=== PATIENT | male | born 1945 | race Caucasian/White ===

== ENCOUNTER 2020-02-09 10:10 | Outpatient (CLI) | payer MEDICARE, SELFPAY ==
[2020-02-09 11:03] LABS: Hematocrit 46.2 % (42.0-52.0); Hemoglobin 15.1 g/dL (14.0-18.0); Mean Corpuscular HGB Conc 32.7 g/dl (32-36); Mean Corpuscular Volume 91.8 fl (80-100); Mean Platelet Volume 11.4 fl (7.4-10.4); Platelet Count Result 237 k/mm3 (150-375); Red Blood Count 5.03 M/mm3 (4.6-6.20); Red Cell Distribution Width 13.6 % (11.5-14.5); White Blood Count 10.6 K/mm3 (4.5-10.0)
[2020-02-09 11:11] LABS: Cholesterol 165 mg/dL (0-200); HDL Direct 36 mg/dL; Triglycerides 120 mg/dL (<150)
[2020-02-09 11:12] LABS: Alanine Aminotransferase 16 U/L (4-50); Albumin Level 4.3 g/dL (3.5-5.1); Alkaline Phosphatase 67 U/L (38-126); Aspartate Amino Transferase 22 U/L (17-59); Bilirubin,Total 0.6 mg/dL (0.2-1.3); Blood Urea Nitrogen 24 mg/dL (9-20); Calcium 9.2 mg/dL (8.4-10.2); Carbon Dioxide 26 mmol/L (22-30); Chloride 104 mmol/L (98-107); Estimated Glomerular Filt Rate > 60; Glucose 95 mg/dL (75-110); Potassium 4.2 mmol/L (3.4-5.0); Sodium 137 mmol/L (137-145)
[2020-02-09 11:23] LABS: LDL Cholesterol Direct 108 mg/dL
[2020-02-09 11:39] LABS: Vitamin D 25 Hydroxy 51.6 ng/mL
[2020-02-09 11:43] LABS: Prostate Specific Antigen 4.6 ng/mL (< OR = 4.0)
== END 2020-02-09 10:11 | disposition home or self-care (01) ==
PROVIDERS: PCP Internal Medicine
DX: Z13.6 Encounter for screening for cardiovascular disorders (principal); Z12.5 Encounter for screening for malignant neoplasm of prostate; E55.9 Vitamin D deficiency, unspecified; L40.0 Psoriasis vulgaris
CPT/HCPCS: 36415; 80053; 80061; 82306; 84153; 85027; G0103

== ENCOUNTER 2020-06-14 09:34 | Outpatient (CLI) | payer MEDICARE, SELFPAY ==
[2020-06-14 10:17] LABS: Basophils Absolute Auto 0.1 K/mm3 (0.0-0.1); Basophils Percent Auto 0.6 % (0.2-1.2); Eosinophils Absolute Auto 0.8 K/mm3 (0-0.3); Eosinophils Percent Auto 8.7 % (0-4.4); Hematocrit 44.7 % (42.0-52.0); Hemoglobin 14.9 g/dL (14.0-18.0); Immature Granulocyte Absolute 0.02 K/mm3 (0.00-0.031); Immature Granulocyte Percent A 0.2 % (0-0.5); Lymphocytes Absolute Auto 2.51 K/mm3 (0.9-3.2); Lymphocytes Percent Auto 25.8 % (18.3-44.2); Mean Corpuscular HGB Conc 33.3 g/dl (32-36); Mean Corpuscular Hemoglobin 30.5 pg (26-34); Mean Corpuscular Volume 91.4 fl (80-100); Mean Platelet Volume 11.6 fl (7.4-10.4); Monocytes Absolute Auto 0.8 K/mm3 (0.1-0.6); Monocytes Percent Auto 7.8 % (2.6-8.5); Neutrophils Absolute Auto 5.5 K/mm3 (1.3-6.7); Neutrophils Percent Auto 56.9 % (45.5-73.1); Platelet Count Result 219 k/mm3 (150-375); Red Blood Count 4.89 M/mm3 (4.6-6.20); Red Cell Distribution Width 13.7 % (11.5-14.5); White Blood Count 9.7 K/mm3 (4.5-10.0)
[2020-06-14 10:42] LABS: Alanine Aminotransferase 14 U/L (4-50); Albumin Level 4.3 g/dL (3.5-5.1); Alkaline Phosphatase 69 U/L (38-126); Aspartate Amino Transferase 18 U/L (17-59); Bilirubin,Total 0.3 mg/dL (0.2-1.3); Blood Urea Nitrogen 26 mg/dL (9-20); Calcium 8.9 mg/dL (8.4-10.2); Carbon Dioxide 25 mmol/L (22-30); Chloride 106 mmol/L (98-107); Cholesterol 178 mg/dL (0-200); Estimated Glomerular Filt Rate 59; Glucose 103 mg/dL (75-110); HDL Direct 37 mg/dL; Potassium 4.5 mmol/L (3.4-5.0); Sodium 139 mmol/L (137-145); Triglycerides 80 mg/dL (<150)
[2020-06-14 10:53] LABS: LDL Cholesterol Direct 120 mg/dL
[2020-06-14 11:12] LABS: Prostate Specific Antigen 3.9 ng/mL (< OR = 4.0)
[2020-06-14 11:41] LABS: Vitamin D 25 Hydroxy 47.3 ng/mL
== END 2020-06-14 09:35 | disposition home or self-care (01) ==
LOC: ANHLAB 09:35
PROVIDERS: PCP Internal Medicine; Visit Provider Nurse Practitioner
DX: E78.00 Pure hypercholesterolemia, unspecified (principal); E55.9 Vitamin D deficiency, unspecified; D64.9 Anemia, unspecified; N40.1 Benign prostatic hyperplasia with lower urinary tract symptoms
CPT/HCPCS: 36415; 80053; 80061; 82306; 84153; 85025

== ENCOUNTER 2020-12-12 08:09 | Outpatient (CLI) | payer MEDICARE, SELFPAY ==
[2020-12-12 08:34] LABS: Basophils Absolute Auto 0.1 K/mm3 (0.0-0.1); Basophils Percent Auto 0.9 % (0.2-1.2); Eosinophils Absolute Auto 0.5 K/mm3 (0-0.3); Eosinophils Percent Auto 5.4 % (0-4.4); Hematocrit 45.2 % (42.0-52.0); Hemoglobin 15.1 g/dL (14.0-18.0); Immature Granulocyte Absolute 0.02 K/mm3 (0.00-0.031); Immature Granulocyte Percent A 0.2 % (0-0.5); Lymphocytes Absolute Auto 3.31 K/mm3 (0.9-3.2); Lymphocytes Percent Auto 36.3 % (18.3-44.2); Mean Corpuscular HGB Conc 33.4 g/dl (32-36); Mean Corpuscular Hemoglobin 30.6 pg (26-34); Mean Corpuscular Volume 91.7 fl (80-100); Mean Platelet Volume 10.3 fl (7.4-10.4); Monocytes Absolute Auto 1.1 K/mm3 (0.1-0.6); Monocytes Percent Auto 11.5 % (2.6-8.5); Neutrophils Absolute Auto 4.2 K/mm3 (1.3-6.7); Neutrophils Percent Auto 45.7 % (45.5-73.1); Platelet Count Result 207 k/mm3 (150-375); Red Blood Count 4.93 M/mm3 (4.6-6.20); Red Cell Distribution Width 13.2 % (11.5-14.5); White Blood Count 9.1 K/mm3 (4.5-10.0)
[2020-12-12 08:47] LABS: Alanine Aminotransferase 22 U/L (4-50); Albumin Level 4.1 g/dL (3.5-5.1); Alkaline Phosphatase 73 U/L (38-126); Anion Gap 4 mmol/L (8-16); Aspartate Amino Transferase 27 U/L (17-59); Bilirubin,Total 0.5 mg/dL (0.2-1.3); Blood Urea Nitrogen 19 mg/dL (9-20); Calcium 8.8 mg/dL (8.4-10.2); Carbon Dioxide 31 mmol/L (22-30); Chloride 101 mmol/L (98-107); Cholesterol 177 mg/dL (0-200); Estimated Glomerular Filt Rate > 60; Glucose 103 mg/dL (75-110); HDL Direct 36 mg/dL; Potassium 4.7 mmol/L (3.4-5.0); Sodium 136 mmol/L (137-145); Triglycerides 121 mg/dL (<150)
[2020-12-12 09:29] LABS: Vitamin D 25 Hydroxy 37.4 ng/mL
[2020-12-12 12:26] LABS: LDL Cholesterol Direct 114 mg/dL
[2020-12-15 11:43] LABS: NIL 1.14 IU/mL; Quantiferon TB Plus, 1T NEGATIVE (NEGATIVE); TB2-NIL 0.04 IU/mL
== END 2020-12-12 08:10 | disposition home or self-care (01) ==
PROVIDERS: PCP Internal Medicine; Referring Provider Dermatology; Visit Provider Nurse Practitioner
DX: E55.9 Vitamin D deficiency, unspecified (principal); D64.9 Anemia, unspecified; E78.00 Pure hypercholesterolemia, unspecified
CPT/HCPCS: 36415; 80053; 80061; 82306; 85025; 86480

== ENCOUNTER 2020-12-30 10:01 | Outpatient (CLI) | payer MEDICARE, SELFPAY ==
--- NOTE | ~2020-12-30 | XR_ITS ---
EXAMINATION: XR chest 2V DATE: 12/30/2020 10:12 INDICATION: Abnormal weight loss. Wheezing. TECHNIQUE: Frontal and lateral views of the chest were obtained. COMPARISON: Chest 2 views 04/24/2019 FINDINGS: There is mild atelectasis versus scarring at the lung bases. No pleural effusion or pneumot horax. The heart size is normal. IMPRESSION: 1. Mild atelectasis versus scarring at the lung bases. Reviewed, dictated and finalized at location A. ING MANAGER
== END 2020-12-30 10:02 | disposition home or self-care (01) ==
LOC: ANHIMG 10:02
PROVIDERS: PCP Internal Medicine; Visit Provider Internal Medicine
DX: R63.4 Abnormal weight loss (principal); R91.8 Other nonspecific abnormal finding of lung field
CPT/HCPCS: 71046

== ENCOUNTER 2021-10-05 08:30 | Outpatient (CLI) | payer MEDICARE, SELFPAY ==
[2021-10-05 10:08] LABS: Basophils Absolute Auto 0.1 K/mm3 (0.0-0.1); Basophils Percent Auto 1.1 % (0.2-1.2); Eosinophils Percent Auto 9.4 % (0-4.4); Hematocrit 44.6 % (42.0-52.0); Hemoglobin 14.8 g/dL (14.0-18.0); Immature Granulocyte Absolute 0.04 K/mm3 (0.00-0.031); Immature Granulocyte Percent A 0.4 % (0-0.5); Lymphocytes Absolute Auto 3.33 K/mm3 (0.9-3.2); Lymphocytes Percent Auto 31.4 % (18.3-44.2); Mean Corpuscular HGB Conc 33.2 g/dl (32-36); Mean Corpuscular Hemoglobin 30.4 pg (26-34); Mean Corpuscular Volume 91.6 fl (80-100); Mean Platelet Volume 11.1 fl (7.4-10.4); Monocytes Absolute Auto 0.9 K/mm3 (0.1-0.6); Monocytes Percent Auto 8.4 % (2.6-8.5); Neutrophils Absolute Auto 5.2 K/mm3 (1.3-6.7); Neutrophils Percent Auto 49.3 % (45.5-73.1); Platelet Count Result 218 k/mm3 (150-375); Red Blood Count 4.87 M/mm3 (4.6-6.20); Red Cell Distribution Width 14.3 % (11.5-14.5); White Blood Count 10.6 K/mm3 (4.5-10.0)
[2021-10-05 10:37] LABS: Alanine Aminotransferase 16 U/L (4-50); Albumin Level 4.4 g/dL (3.5-5.1); Alkaline Phosphatase 62 U/L (38-126); Anion Gap 10 mmol/L (8-16); Aspartate Amino Transferase 22 U/L (17-59); Bilirubin,Total 0.7 mg/dL (0.2-1.3); Blood Urea Nitrogen 24 mg/dL (9-20); Calcium 9.1 mg/dL (8.4-10.2); Carbon Dioxide 27 mmol/L (22-30); Chloride 104 mmol/L (98-107); Cholesterol 185 mg/dL (0-200); Estimated Glomerular Filt Rate > 60; Glucose 97 mg/dL (65-110); HDL Direct 46 mg/dL; Potassium 4.4 mmol/L (3.4-5.0); Sodium 141 mmol/L (137-145); Triglycerides 77 mg/dL (<150)
[2021-10-05 10:38] LABS: Vitamin D 25 Hydroxy 40.3 ng/mL
[2021-10-05 10:48] LABS: LDL Cholesterol Direct 115 mg/dL
[2021-10-05 11:07] LABS: Prostate Specific Antigen 4.1 ng/mL (< OR = 4.0)
[2021-10-10 01:50] LABS: NIL 0.04 IU/mL; Quantiferon TB Plus, 1T NEGATIVE (NEGATIVE); TB1-NIL <0.00 IU/mL
== END 2021-10-05 08:31 | disposition home or self-care (01) ==
LOC: ANHLAB 08:34
PROVIDERS: PCP Internal Medicine; Visit Provider Nurse Practitioner
DX: D64.9 Anemia, unspecified (principal); E55.9 Vitamin D deficiency, unspecified; E78.00 Pure hypercholesterolemia, unspecified; N40.1 Benign prostatic hyperplasia with lower urinary tract symptoms
CPT/HCPCS: 36415; 80053; 80061; 82306; 84153; 85025; 86480

== ENCOUNTER 2022-05-03 07:49 | Outpatient (CLI) | payer MEDICARE, SELFPAY ==
[2022-05-03 08:19] LABS: Basophils Absolute Auto 0.1 K/mm3 (0.0-0.1); Basophils Percent Auto 0.8 % (0.2-1.2); Eosinophils Absolute Auto 0.9 K/mm3 (0-0.3); Eosinophils Percent Auto 8.7 % (0-4.4); Hematocrit 46.2 % (42.0-52.0); Hemoglobin 15.2 g/dL (14.0-18.0); Immature Granulocyte Absolute 0.03 K/mm3 (0.00-0.031); Immature Granulocyte Percent A 0.3 % (0-0.5); Lymphocytes Absolute Auto 3.33 K/mm3 (0.9-3.2); Lymphocytes Percent Auto 32.8 % (18.3-44.2); Mean Corpuscular HGB Conc 32.9 g/dl (32-36); Mean Corpuscular Hemoglobin 30.4 pg (26-34); Mean Corpuscular Volume 92.4 fl (80-100); Mean Platelet Volume 10.7 fl (7.4-10.4); Monocytes Absolute Auto 0.9 K/mm3 (0.1-0.6); Monocytes Percent Auto 8.6 % (2.6-8.5); Neutrophils Percent Auto 48.8 % (45.5-73.1); Platelet Count Result 210 k/mm3 (150-375); Red Cell Distribution Width 14.1 % (11.5-14.5); White Blood Count 10.2 K/mm3 (4.5-10.0)
[2022-05-03 08:34] LABS: Alanine Aminotransferase 13 U/L (6-50); Albumin Level 4.2 g/dL (3.5-5.1); Alkaline Phosphatase 72 U/L (38-126); Anion Gap 5 mmol/L (8-16); Aspartate Amino Transferase 23 U/L (17-59); Bilirubin,Total 0.5 mg/dL (0.2-1.3); Blood Urea Nitrogen 19 mg/dL (9-20); Calcium 8.9 mg/dL (8.4-10.2); Carbon Dioxide 32 mmol/L (22-30); Chloride 103 mmol/L (98-107); Cholesterol 199 mg/dL (0-200); Estimated Glomerular Filt Rate > 60; Glucose 96 mg/dL (65-110); HDL Direct 41 mg/dL; Potassium 4.4 mmol/L (3.4-5.0); Sodium 140 mmol/L (137-145); Triglycerides 92 mg/dL (<150)
[2022-05-03 08:44] LABS: LDL Cholesterol Direct 116 mg/dL
[2022-05-03 09:13] LABS: Vitamin D 25 Hydroxy 43.2 ng/mL
[2022-05-03 15:15] LABS: Prostate Specific Antigen 3.6 ng/mL (< OR = 4.0)
== END 2022-05-03 07:50 | disposition home or self-care (01) ==
LOC: ANHLAB 07:49
PROVIDERS: Nurse Practitioner; PCP Internal Medicine; Visit Provider Internal Medicine
DX: R97.20 Elevated prostate specific antigen [PSA] (principal); I10 Essential (primary) hypertension; E78.00 Pure hypercholesterolemia, unspecified; D64.9 Anemia, unspecified; E55.9 Vitamin D deficiency, unspecified; E78.5 Hyperlipidemia, unspecified; Z51.81 Encounter for therapeutic drug level monitoring; Z79.899 Other long term (current) drug therapy
CPT/HCPCS: 36415; 80053; 80061; 82306; 84153; 85025

== ENCOUNTER 2022-05-08 08:49 | Outpatient (CLI) | payer MEDICARE, SELFPAY ==
--- NOTE | ~2022-05-08 | CT_ITS ---
EXAMINATION: CT lung screening DATE: 05/08/2022 09:09 INDICATION: Personal history of tobacco dependence. TECHNIQUE: Computed tomography (CT) of the chest was performed without intravenous contrast. The dose -length product was 120.29 mGy-cm. Automated exposure control and iterative reconstruction technique were employed. COMPARISON: Chest x-ray dated 12/30/2020 FINDINGS: There is atherosclerosis of the aorta and coronary arteries. No aneurysm. Heart size normal . No significant pleural or pericardial effusion. No thoracic lymphadenopathy. The upper abdomen is u nremarkable. There is chronic bibasilar atelectasis/scarring. There is a 3 mm right upper lobe nodule adjacent to the pleural surface, image 37. There is a 3 mm left upper lobe nodule, image 28. There i s an 8 mm left upper lobe nodule, image 47. There are a few additional smaller 2-3 millimeter nodules . No pneumothorax. No endobronchial lesions. IMPRESSION: 1. Lung Rads 4A, suspicious: Recommended 3 month follow-up low dose chest CT or PET/CT. Reviewed, dictated and finalized at location B.
== END 2022-05-08 08:50 | disposition home or self-care (01) ==
PROVIDERS: PCP Internal Medicine; Visit Provider Nurse Practitioner
DX: Z12.2 Encounter for screening for malignant neoplasm of respiratory organs (principal); Z87.891 Personal history of nicotine dependence; R91.8 Other nonspecific abnormal finding of lung field
CPT/HCPCS: 71271

== ENCOUNTER 2022-10-22 08:01 | Outpatient (CLI) | payer MEDICARE, SELFPAY ==
[2022-10-22 08:27] LABS: Hematocrit 43.5 % (42.0-52.0); Hemoglobin 14.6 g/dL (14.0-18.0); Mean Corpuscular HGB Conc 33.6 g/dl (32-36); Mean Corpuscular Hemoglobin 30.1 pg (26-34); Mean Corpuscular Volume 89.7 fl (80-100); Mean Platelet Volume 10.1 fl (7.4-10.4); Platelet Count Result 228 k/mm3 (150-375); Red Blood Count 4.85 M/mm3 (4.6-6.20); Red Cell Distribution Width 13.7 % (11.5-14.5); White Blood Count 11.8 K/mm3 (4.5-10.0)
[2022-10-22 11:07] LABS: Alanine Aminotransferase 18 U/L (6-50); Albumin Level 4.2 g/dL (3.5-5.1); Alkaline Phosphatase 73 U/L (38-126); Anion Gap 9 mmol/L (8-16); Aspartate Amino Transferase 23 U/L (17-59); Bilirubin,Total 0.5 mg/dL (0.2-1.3); Blood Urea Nitrogen 26 mg/dL (9-20); Carbon Dioxide 24 mmol/L (22-30); Chloride 103 mmol/L (98-107); Estimated Glomerular Filt Rate > 60; Glucose 106 mg/dL (65-110); Potassium 4.3 mmol/L (3.4-5.0); Sodium 136 mmol/L (137-145)
== END 2022-10-22 08:02 | disposition home or self-care (01) ==
PROVIDERS: PCP Internal Medicine; Visit Provider Dermatology
DX: L40.0 Psoriasis vulgaris (principal)
CPT/HCPCS: 36415; 80053; 85027

== ENCOUNTER 2023-05-30 08:48 | Outpatient (CLI) | payer MEDICARE, SELFPAY ==
[2023-05-30 09:57] LABS: Hematocrit 39.8 % (42.0-52.0); Hemoglobin 12.6 g/dL (14.0-18.0); Mean Corpuscular HGB Conc 31.7 g/dl (32-36); Mean Corpuscular Hemoglobin 27.7 pg (26-34); Mean Corpuscular Volume 87.5 fl (80-100); Mean Platelet Volume 10.4 fl (7.4-10.4); Platelet Count Result 265 k/mm3 (150-375); Red Blood Count 4.55 M/mm3 (4.6-6.20); Red Cell Distribution Width 13.9 % (11.5-14.5); White Blood Count 9.1 K/mm3 (4.5-10.0)
[2023-05-30 10:07] LABS: Hemoglobin A1C 5.8 % (<5.7)
[2023-05-30 10:10] LABS: Alanine Aminotransferase 20 U/L (6-50); Albumin Level 4.4 g/dL (3.5-5.1); Alkaline Phosphatase 75 U/L (38-126); Anion Gap 6 mmol/L (8-16); Aspartate Amino Transferase 24 U/L (17-59); Bilirubin,Total 0.4 mg/dL (0.2-1.3); Blood Urea Nitrogen 19 mg/dL (9-20); Calcium 8.8 mg/dL (8.4-10.2); Carbon Dioxide 30 mmol/L (22-30); Chloride 103 mmol/L (98-107); Cholesterol 169 mg/dL (0-200); Estimated Glomerular Filt Rate 59; Glucose 97 mg/dL (65-110); HDL Direct 42 mg/dL; Potassium 4.7 mmol/L (3.4-5.0); Sodium 139 mmol/L (137-145); Triglycerides 72 mg/dL (<150)
[2023-05-30 10:22] LABS: LDL Cholesterol Direct 105 mg/dL
[2023-05-30 10:41] LABS: Prostate Specific Antigen 5.2 ng/mL (< OR = 4.0)
== END 2023-05-30 08:49 | disposition home or self-care (01) ==
PROVIDERS: PCP Family Medicine; Visit Provider Family Medicine
DX: D64.9 Anemia, unspecified (principal); E55.9 Vitamin D deficiency, unspecified; G47.33 Obstructive sleep apnea (adult) (pediatric); G89.29 Other chronic pain; I10 Essential (primary) hypertension; I11.9 Hypertensive heart disease without heart failure; I48.91 Unspecified atrial fibrillation; I67.1 Cerebral aneurysm, nonruptured; J44.9 Chronic obstructive pulmonary disease, unspecified; K42.9 Umbilical hernia without obstruction or gangrene; L40.0 Psoriasis vulgaris; M51.36 Other intervertebral disc degeneration, lumbar region; N40.1 Benign prostatic hyperplasia with lower urinary tract symptoms; R73.03 Prediabetes; R91.8 Other nonspecific abnormal finding of lung field; R97.20 Elevated prostate specific antigen [PSA]; Z87.891 Personal history of nicotine dependence; E78.5 Hyperlipidemia, unspecified; Z51.81 Encounter for therapeutic drug level monitoring; Z12.5 Encounter for screening for malignant neoplasm of prostate
CPT/HCPCS: 36415; 80053; 80061; 82306; 83036; 84153; 85027; G0103

== ENCOUNTER 2023-05-31 13:27 | Outpatient (CLI) | payer MEDICARE, SELFPAY ==
--- NOTE | ~2023-05-31 | CT_ITS ---
CT Scan of the Chest without Contrast: Clinical Indication: Other nonspecific abnormal finding of lung field, pulmonary nodules Technique: Contiguous sections were acquired throughout the chest without intravenous contrast. Dose reduction technique was used on this scan by utilizing automated exposure control and iterative recon struction technique. The dose-length product (DLP) was 176.33 mGy-cm. COMPARISON: 05/08/2022 Findings: There is no evidence of any significant mediastinal, hilar or axillary lymphadenopathy. Atherosclerot ic calcifications of the aorta and coronary arteries are present. There is no evidence of pleural or pericardial effusion. Subcentimeter right middle lobe pulmonary nodules are unchanged. 9 mm left upper lobe pulmonary nodul e (axial image 54) is unchanged. Images through the upper abdomen reveal no abnormalities. Impression: Pulmonary nodules, as detailed above, are unchanged. Largest nodule measures 9 mm at the left upper l obe. Reviewed, dictated and finalized at location . Impression: Pulmonary nodules, as detailed above, are unchanged. Largest nodule measures 9 mm at the left upper lobe.
== END 2023-05-31 13:28 | disposition home or self-care (01) ==
LOC: ANHIMG 13:28
PROVIDERS: PCP Family Medicine; Visit Provider Family Medicine
DX: R91.8 Other nonspecific abnormal finding of lung field (principal)
CPT/HCPCS: 71250

== ENCOUNTER 2023-06-25 00:55 | Day surgery (SDC) | payer MEDICARE, SELFPAY ==
[2023-06-17 13:35] VITALS: BMI 30.4
[2023-06-25 10:30] VITALS: BP 144/98; PULSE 120; RESP 20; TEMP 36.2; O2SAT 97; BMI 27.2
--- NOTE | 2023-06-25 10:47 | PM.HPGS ---
History of Present Illness History of Present Illness Consent: Risks, benefits, and alternatives have been discussed and questions answered. Patient agrees to proceed with procedure. Chief complaint: hemorrhage of anus and rectum Narrative: Dickson Soresnen is a 77 year old male Referred for colonoscopy. Patient reports that he experienced blood admixed with his stool. He was being treated with Eliquis because of atrial fibrillation. For this reason he discontinue the Eliquis. Three weeks ago. Over the last 3 weeks since stopping the Eliquis he has had no additional bleeding. Patient denies abdominal pain. He does report some discomfort from periumbilical hernia. Family history noncontributory. Recent laboratory testing reveals a slight decline in hemoglobin suggesting blood loss anemia. Patient referred today for colonoscopy. Review of Systems Review of Systems: Review of systems noncontributory. [facility] Past Medical History Medical History Atrial fibrillation Brain aneurysm COPD (chronic obstructive pulmonary disease) Enlarged prostate with lower urinary tract symptoms (LUTS) Essential (primary) hypertension Lung nodules Obstructive sleep apnea (adult) (pediatric) Other psoriatic arthropathy Polyosteoarthritis, unspecified Prediabetes Psoriasis vulgaris Umbilical hernia Vitamin D deficiency Surgical History Surgical History H/O arthroscopic knee surgery Family History Family History Father Family history of diabetes mellitus in first degree relative, Onset Age: 62 Patient's father is Diabetes mellitus Mother Family history of heart disease in male family member before age 55, Onset Age: 81 Patient's mother is Family history of cardiovascular disease Social History Social History Smoking packs per day: 1.5 Smoking cigarettes per day: 30.0 Years smoked: 40 Smoking pack-years: 60.00 Smoking status: Former smoker Tobacco type: cigarettes Second hand tobacco smoke exposure: No Smoking end date: 12/02/16 Alcohol intake: current Substance use: current Substance use type: marijuana Other substance usage details: COUPLE TIMES A WEEK Lack of Transportation: No Lack of Food: Never True Current Housing: I Have Housing Concerned About Future Housing: No Difficulty Paying Gas/Electric Bills: No Difficulty Paying for Meds: No Currently Unemployed: No Education: High School Diploma/GED Difficulty w/ Childcare or Family Care: No Living arrangements: with family Spiritual care concerns: No Meds Home Medications and Allergies Home Medications Medication Instructions Recorded Confirmed Type adalimumab 40 mg/0.8 mL See Rx Instructions subcut .COMPLEX 01/13/20 06/25/23 History subcutaneous syringe kit (Humira) albuterol sulfate 90 mcg/actuation 1 puff inhalation Q4H PRN 01/09/23 06/25/23 History aerosol inhaler Shortness Of Breath Or Wheezing multivitamin 1 tablet PO DAILY 01/09/23 06/25/23 History diltiazem HCl 120 mg 120 mg PO DAILY #90 caps 01/30/23 06/25/23 Rx capsule,extended release 24 hr, controlled budesonide-formoterol HFA 160 2 puff inhalation Q12H #10.2 grams 05/24/23 06/25/23 Rx mcg-4.5 mcg/actuation aerosol inhaler (Symbicort) hydrocodone 7.5 mg-acetaminophen 1 tablet PO Q6H PRN pain #110 tabs 06/10/23 06/25/23 Rx 325 mg tablet metoprolol tartrate 50 mg tablet 50 mg PO BID #90 tabs 06/10/23 06/25/23 Rx rivaroxaban 20 mg tablet (Xarelto) 20 mg PO QPM #30 tabs 06/19/23 06/25/23 Rx Allergies Allergy/AdvReac Type Severity Reaction Status Date / Time No Known Allergies Allergy Unknown Verified 06/25/23 10:35 Vital Signs Vital Signs - 24 hr 06/25/23 10:30 Temperatur
[2023-06-25] MEDS: LACTATED RINGERS 1,000 ML 150 ML IV CONT (10:52)
--- NOTE | 2023-06-25 11:19 | WPDANESEPPF ---
Anes - Initial Pre Proc Eval Procedure: Operation Date: 06/25/23 11:30 Proposed Procedures p Colonoscopy - Hammad Eden MD Date/Time: 06/25/23 11:19 Surgeon: Hammad Eden MD Pre Op Diagnosis: hemorrhage of anus and rectum Patient Data Age: 77 Gender: M Height: 1.73 m Weight: 81.2 kg Last Vital Signs Temp 97.2 F L 06/25/23 10:30 Pulse 120 H 06/25/23 10:30 Resp 20 06/25/23 10:30 BP 144/98 H 06/25/23 10:30 Pulse Ox 97 06/25/23 10:30 O2 Del Method Room Air 06/25/23 10:30 Allergies Allergy/AdvReac Type Severity Reaction Status Date / Time No Known Allergies Allergy Unknown Verified 06/25/23 10:35 Home Medications Medication Instructions Recorded Confirmed Type adalimumab 40 mg/0.8 mL See Rx Instructions subcut .COMPLEX 01/13/20 06/25/23 History subcutaneous syringe kit (Humira) albuterol sulfate 90 mcg/actuation 1 puff inhalation Q4H PRN 01/09/23 06/25/23 History aerosol inhaler Shortness Of Breath Or Wheezing multivitamin 1 tablet PO DAILY 01/09/23 06/25/23 History diltiazem HCl 120 mg 120 mg PO DAILY #90 caps 01/30/23 06/25/23 Rx capsule,extended release 24 hr, controlled budesonide-formoterol HFA 160 2 puff inhalation Q12H #10.2 grams 05/24/23 06/25/23 Rx mcg-4.5 mcg/actuation aerosol inhaler (Symbicort) hydrocodone 7.5 mg-acetaminophen 1 tablet PO Q6H PRN pain #110 tabs 06/10/23 06/25/23 Rx 325 mg tablet metoprolol tartrate 50 mg tablet 50 mg PO BID #90 tabs 06/10/23 06/25/23 Rx rivaroxaban 20 mg tablet (Xarelto) 20 mg PO QPM #30 tabs 06/19/23 06/25/23 Rx Patient hx anesthesia problems: none Family hx anesthesia problems: none Results Review: All pre-operative results and documents have been reviewed as part of the pre-operative evaluation. [facility] Past Medical History Medical History Atrial fibrillation Brain aneurysm COPD (chronic obstructive pulmonary disease) Enlarged prostate with lower urinary tract symptoms (LUTS) Essential (primary) hypertension Lung nodules Obstructive sleep apnea (adult) (pediatric) Other psoriatic arthropathy Polyosteoarthritis, unspecified Prediabetes Psoriasis vulgaris Umbilical hernia Vitamin D deficiency Surgical History Surgical History H/O arthroscopic knee surgery Family History Family History Father Family history of diabetes mellitus in first degree relative, Onset Age: 62 Patient's father is Diabetes mellitus Mother Family history of heart disease in male family member before age 55, Onset Age: 81 Patient's mother is Family history of cardiovascular disease Social History Social History Smoking packs per day: 1.5 Smoking cigarettes per day: 30.0 Years smoked: 40 Smoking pack-years: 60.00 Smoking status: Former smoker Tobacco type: cigarettes Second hand tobacco smoke exposure: No Smoking end date: 12/02/16 Alcohol intake: current Substance use: current Substance use type: marijuana Other substance usage details: COUPLE TIMES A WEEK Lack of Transportation: No Lack of Food: Never True Current Housing: I Have Housing Concerned About Future Housing: No Difficulty Paying Gas/Electric Bills: No Difficulty Paying for Meds: No Currently Unemployed: No Education: High School Diploma/GED Difficulty w/ Childcare or Family Care: No Living arrangements: with family Spiritual care concerns: No Anes - Eval Final PreProcedure Day of Procedure 06/25/23 11:19 Patient weight: normal Heart: irregular rhythm Lungs: clear to auscultation Airway: Mallampati scale class III (poor dentition) Neurological: alert and oriented Last oral intake: >/= 8 hours ASA classification: III Emergent: no Anesthetic plan:
[2023-06-25 11:43] VITALS: BP 115/72; PULSE 87; RESP 20; O2SAT 97
[2023-06-25 11:53] VITALS: BP 113/66; PULSE 90; RESP 20; O2SAT 97
[2023-06-25 12:03] VITALS: BP 160/88; PULSE 78; RESP 20; O2SAT 97
== END 2023-06-25 12:16 | disposition home or self-care (01) ==
PROVIDERS: PCP Family Medicine; Visit Provider Internal Medicine Gastroenterology
PROC: 0DJD8ZZ Inspection of Lower Intestinal Tract, Via Natural or Artificial Opening Endoscopic (ICD-10-PCS; CPT 45378; principal; 2023-06-25 11:30)
DX: K57.30 Diverticulosis of large intestine without perforation or abscess without bleeding (principal); K64.8 Other hemorrhoids; K42.9 Umbilical hernia without obstruction or gangrene; I48.91 Unspecified atrial fibrillation; J44.9 Chronic obstructive pulmonary disease, unspecified; I10 Essential (primary) hypertension; G47.33 Obstructive sleep apnea (adult) (pediatric); L40.59 Other psoriatic arthropathy; L40.0 Psoriasis vulgaris; Z79.51 Long term (current) use of inhaled steroids; Z79.891 Long term (current) use of opiate analgesic; Z79.620 Long term (current) use of immunosuppressive biologic; Z79.01 Long term (current) use of anticoagulants; Z87.891 Personal history of nicotine dependence; F12.90 Cannabis use, unspecified, uncomplicated
CPT/HCPCS: 45378; J2001; J2704; J7120

== ENCOUNTER 2023-09-12 11:56 | Outpatient (CLI) | payer MEDICARE, SELFPAY ==
--- NOTE | ~2023-09-12 | PE_ITS ---
EXAMINATION: PET skull to mid thigh DATE: 09/12/2023 14:13 INDICATION: Lung nodule TECHNIQUE: Blood glucose level was 97 mg/dL. 9.060 mCi of 18-fluorodeoxyglucose (18-FDG) was administ ered i.v. Low dose computed tomography (CT) images were acquired from the base of the brain to the pr oximal thighs for attenuation correction and anatomic localization. Positron emission tomography (PET ) images were acquired in the same distribution beginning 58 minutes after injection. The dose-length product (DLP) was 1086.14 mGy-cm. COMPARISON: CTs dated 05/31/2023 and 05/08/2022 FINDINGS: Head/neck: No abnormal FDG uptake is identified. FDG activity in the extraocular muscles, optic nerve s, and vocal cords, without suspicious CT correlate, is likely physiologic. There is partial opacific ation of the left maxillary sinus. Chest: No abnormal FDG uptake is identified. There is a stable 8 mm nodule of the left upper lobe without as sociated FDG activity. No pathologically enlarged thoracic lymph nodes are identified. The heart size is normal. No pleural effusion or pneumothorax. The lungs are free of acute opacities. There is mild dependent atelectasis. Calcified coronary artery atherosclerosis is noted. There is slightly decreas ed FDG uptake in the left ventricular apex which could reflect prior myocardial infarction. Abdomen/pelvis/proximal thighs: No abnormal FDG uptake is identified. Physiologic FDG activity is pre sent in the bowel and urinary tract. The liver, spleen, and adrenal glands are normal. Punctate calci fications of the prostate consistent with chronic pancreatitis. Stones are present in the nondistende d gallbladder. No pathologically enlarged abdominal or pelvic lymph nodes are identified. No free int raperitoneal gas or evidence of bowel obstruction. There is an umbilical hernia containing fat. Musculoskeletal: No abnormal FDG uptake is identified. There is severe cervical, thoracic, and lumbar spondylosis. Osteoarthritis is also noted in the shoulders. IMPRESSION: 1. Pulmonary nodule without associated FDG uptake, consistent with a benign nodule. Reviewed, dictated and finalized at location L. IMPRESSION: 1. Pulmonary nodule without associated FDG uptake, consistent with a benign nod ule.
[2023-09-12 12:44] LABS: Glucose Point of Care 97 mg/dl (65-105)
== END 2023-09-12 11:57 | disposition home or self-care (01) ==
PROVIDERS: PCP Family Medicine; Visit Provider Family Medicine
DX: R91.8 Other nonspecific abnormal finding of lung field (principal)
CPT/HCPCS: 78815; A9552

== ENCOUNTER 2023-11-20 14:41 | Outpatient (CLI) | payer MEDICARE, SELFPAY ==
--- NOTE | ~2023-11-20 | XR_ITS ---
XR chest 2V DATE: 11/20/2023 15:23 INDICATION: Shortness of breath TECHNIQUE: PA and lateral views COMPARISON: 05/31/2023 CT chest 12/30/2020 2 view chest FINDINGS: Heart size is within normal range. There is mild aortic calcification and tortuosity. No hi lar or mediastinal enlargement is evident. Central pulmonary arteries appear rather prominent central pulmonary hypertension is not excluded. Moderate bilateral hyperinflation. Minimal infiltrate or atelectasis or scarring in the left midlung. Mild atelectasis or minimal infilt rate at the lung bases. The lungs otherwise appear clear of infiltrate or consolidation. There is diffuse osteopenia. There is degenerative change of the thoracic and lumbar spine. Bilateral chronic rotator cuff atrophy. IMPRESSION: Mild infiltrate, atelectasis or scarring, left mid lung and both lung bases Moderate bilateral hyperinflation Reviewed, dictated and finalized at location A. IC PHYSICIAN IMPRESSION: Mild infiltrate, atelectasis or scarring, left mid lung and both job ng bases Moderate bilateral hyperinflation
[2023-11-20 15:07] LABS: Basophils Absolute Auto 0.1 K/mm3 (0.0-0.1); Basophils Percent Auto 0.4 % (0.2-1.2); Eosinophils Absolute Auto 0.4 K/mm3 (0-0.3); Eosinophils Percent Auto 2.7 % (0-4.4); Hematocrit 49.2 % (42.0-52.0); Hemoglobin 16.1 g/dL (14.0-18.0); Immature Granulocyte Absolute 0.04 K/mm3 (0.00-0.031); Immature Granulocyte Percent A 0.3 % (0-0.5); Lymphocytes Absolute Auto 3.27 K/mm3 (0.9-3.2); Mean Corpuscular HGB Conc 32.7 g/dl (32-36); Mean Corpuscular Hemoglobin 29.3 pg (26-34); Mean Corpuscular Volume 89.5 fl (80-100); Mean Platelet Volume 11.2 fl (7.4-10.4); Monocytes Absolute Auto 1.6 K/mm3 (0.1-0.6); Monocytes Percent Auto 11.3 % (2.6-8.5); Neutrophils Absolute Auto 8.9 K/mm3 (1.3-6.7); Neutrophils Percent Auto 62.3 % (45.5-73.1); Platelet Count Result 229 k/mm3 (150-375); Red Cell Distribution Width 16.6 % (11.5-14.5); White Blood Count 14.2 K/mm3 (4.5-10.0)
[2023-11-20 15:14] LABS: Alanine Aminotransferase 452 U/L (6-50); Albumin Level 3.9 g/dL (3.5-5.1); Alkaline Phosphatase 101 U/L (38-126); Anion Gap 5 mmol/L (8-16); Aspartate Amino Transferase 404 U/L (17-59); Bilirubin,Total 1.6 mg/dL (0.2-1.3); Blood Urea Nitrogen 26 mg/dL (9-20); Calcium 8.9 mg/dL (8.4-10.2); Carbon Dioxide 28 mmol/L (22-30); Chloride 99 mmol/L (98-107); Estimated Glomerular Filt Rate > 60; Glucose 89 mg/dL (65-110); Potassium 4.8 mmol/L (3.4-5.0); Sodium 132 mmol/L (137-145)
[2023-11-20 15:48] LABS: Influenza A QL RT-PCR Negative (Negative); Influenza B QL RT-PCR Negative (Negative); RSV RNA, RT-PCR Negative (Negative); SARS-CoV-2 RNA PCR Negative (Negative)
== END 2023-11-20 14:42 | disposition home or self-care (01) ==
PROVIDERS: PCP Family Medicine; Visit Provider Nurse Practitioner Family
DX: R06.02 Shortness of breath (principal); R91.8 Other nonspecific abnormal finding of lung field; Z20.822 Contact with and (suspected) exposure to COVID-19
CPT/HCPCS: 36415; 71046; 80053; 85025; 87637

== ENCOUNTER 2023-12-24 15:22 | Outpatient (CLI) | payer MEDICARE, SELFPAY ==
[2023-12-24 16:18] LABS: Alanine Aminotransferase 70 U/L (6-50); Albumin Level 3.6 g/dL (3.5-5.1); Alkaline Phosphatase 85 U/L (38-126); Anion Gap 6 mmol/L (8-16); Aspartate Amino Transferase 74 U/L (17-59); Bilirubin,Total 0.9 mg/dL (0.2-1.3); Blood Urea Nitrogen 22 mg/dL (9-20); Calcium 8.6 mg/dL (8.4-10.2); Carbon Dioxide 26 mmol/L (22-30); Chloride 102 mmol/L (98-107); Estimated Glomerular Filt Rate > 60; Glucose 93 mg/dL (65-110); Potassium 4.6 mmol/L (3.4-5.0); Sodium 134 mmol/L (137-145)
[2023-12-24 16:42] LABS: Hemoglobin 14.9 g/dL (14.0-18.0); Mean Corpuscular HGB Conc 32.4 g/dl (32-36); Mean Corpuscular Hemoglobin 29.6 pg (26-34); Mean Corpuscular Volume 91.5 fl (80-100); Mean Platelet Volume 11.1 fl (7.4-10.4); Platelet Count Result 210 k/mm3 (150-375); Red Blood Count 5.03 M/mm3 (4.6-6.20); Red Cell Distribution Width 15.9 % (11.5-14.5); White Blood Count 10.5 K/mm3 (4.5-10.0)
[2023-12-24 16:49] LABS: Prostate Specific Antigen 4.5 ng/mL (< OR = 4.0)
[2023-12-24 16:55] LABS: Hemoglobin A1C 6.1 % (<5.7)
== END 2023-12-24 15:23 | disposition home or self-care (01) ==
LOC: ANHLAB 15:26
PROVIDERS: PCP Family Medicine; Visit Provider Family Medicine
DX: Z12.5 Encounter for screening for malignant neoplasm of prostate (principal); R97.20 Elevated prostate specific antigen [PSA]; D64.9 Anemia, unspecified; G47.33 Obstructive sleep apnea (adult) (pediatric); I11.9 Hypertensive heart disease without heart failure; I48.91 Unspecified atrial fibrillation; I67.1 Cerebral aneurysm, nonruptured; J44.9 Chronic obstructive pulmonary disease, unspecified; K62.5 Hemorrhage of anus and rectum; N40.1 Benign prostatic hyperplasia with lower urinary tract symptoms; R73.03 Prediabetes; Z87.891 Personal history of nicotine dependence
CPT/HCPCS: 36415; 80053; 83036; 84153; 85027; G0103

== ENCOUNTER 2024-07-20 08:30 | Outpatient (CLI) | payer MEDICARE, SELFPAY ==
[2024-07-20 08:56] LABS: Hematocrit 43.8 % (42.0-52.0); Hemoglobin 14.6 g/dL (14.0-18.0); Mean Corpuscular HGB Conc 33.3 g/dl (32-36); Mean Corpuscular Hemoglobin 31.8 pg (26-34); Mean Corpuscular Volume 95.4 fl (80-100); Mean Platelet Volume 10.8 fl (7.4-10.4); Platelet Count Result 154 k/mm3 (150-375); Red Blood Count 4.59 M/mm3 (4.6-6.20); Red Cell Distribution Width 15.6 % (11.5-14.5); White Blood Count 11.1 K/mm3 (4.5-10.0)
[2024-07-20 11:56] LABS: Hepatitis B Surface Antigen Negative (Negative)
[2024-07-20 12:01] LABS: HAV RESULT Negative (Negative); Hepatitis B Core IgM Result Negative (Negative)
[2024-07-20 12:15] LABS: Hepatitis C Virus Antibody Reactive (Negative)
[2024-07-20 13:24] LABS: Hemoglobin A1C 5.9 % (<5.7)
[2024-07-20 13:53] LABS: Alanine Aminotransferase 104 U/L (6-50); Albumin Level 3.3 g/dL (3.5-5.1); Alkaline Phosphatase 77 U/L (38-126); Anion Gap 8 mmol/L (4-12); Aspartate Amino Transferase 76 U/L (17-59); Bilirubin,Total 0.8 mg/dL (0.2-1.3); Blood Urea Nitrogen 21 mg/dL (9-20); Calcium 8.6 mg/dL (8.4-10.2); Carbon Dioxide 27 mmol/L (22-30); Chloride 101 mmol/L (98-107); Cholesterol 149 mg/dL (0-200); Estimated Glomerular Filt Rate > 60; Glucose 177 mg/dL (65-110); HDL Direct 52 mg/dL; Potassium 4.5 mmol/L (3.4-5.0); Sodium 136 mmol/L (137-145); Triglycerides 77 mg/dL (<150)
[2024-07-20 14:04] LABS: LDL Cholesterol Direct 72 mg/dL
[2024-07-20 14:18] LABS: Prostate Specific Antigen 3.9 ng/mL (< OR = 4.0)
[2024-07-22 20:14] LABS: Hepatitis C RNA, Quant PCR 1510000 IU/mL (NOT DETECTED)
== END 2024-07-20 08:31 | disposition home or self-care (01) ==
LOC: ANHLAB 08:43
PROVIDERS: PCP Family Medicine; Visit Provider Family Medicine
DX: L02.31 Cutaneous abscess of buttock (principal); D64.9 Anemia, unspecified; G47.33 Obstructive sleep apnea (adult) (pediatric); I10 Essential (primary) hypertension; I67.1 Cerebral aneurysm, nonruptured; K42.9 Umbilical hernia without obstruction or gangrene; K62.5 Hemorrhage of anus and rectum; R73.03 Prediabetes; R94.5 Abnormal results of liver function studies; Z12.5 Encounter for screening for malignant neoplasm of prostate; R74.8 Abnormal levels of other serum enzymes
CPT/HCPCS: 36415; 80053; 80061; 80074; 83036; 84153; 85027; 87522; G0103

== ENCOUNTER 2024-07-22 12:51 | Outpatient (CLI) | payer MEDICARE, SELFPAY ==
--- NOTE | ~2024-07-22 | US_ITS ---
EXAMINATION: US soft tissue head and neck DATE: 07/22/2024 13:39 INDICATION: Left neck mass. TECHNIQUE: Multiple grayscale and Doppler ultrasound images of the head and neck were obtained. COMPARISON: PET/CT 09/12/2023 FINDINGS: There is no abnormal mass or lymphadenopathy in the patient's area of concern in left neck. IMPRESSION: 1. No abnormal mass or lymphadenopathy in the patient's area of concern in left neck. Reviewed, dictated and finalized at location A.
== END 2024-07-22 12:52 | disposition home or self-care (01) ==
LOC: ANHIMG 12:53
PROVIDERS: PCP Family Medicine; Visit Provider Family Medicine
DX: R22.1 Localized swelling, mass and lump, neck (principal)
CPT/HCPCS: 76536

== ENCOUNTER 2025-02-17 16:22 | Outpatient (CLI) | payer MEDICARE, SELFPAY ==
--- NOTE | ~2025-02-17 | CT_ITS ---
CT Scan of the Chest without Contrast: Clinical Indication: Lung cancer screening, nicotine dependence Technique: Contiguous sections were acquired throughout the chest without intravenous contrast. Dose reduction technique was used on this scan by utilizing automated exposure control and iterative recon struction technique. The dose-length product (DLP) was 97.25 mGy-cm. COMPARISON: 05/31/2023 Findings: There is no evidence of any significant mediastinal, hilar or axillary lymphadenopathy. There are ath erosclerotic calcifications of the aorta and coronary arteries. There is no evidence of pleural or pericardial effusion. Left upper lobe granuloma noted. Stable tiny right middle lobe nodules. Images through the upper abdomen reveal no abnormalities. Impression: Lung RADS 2: Benign appearance. 12 month follow-up screening CT advised. Reviewed, dictated and finalized at [facility]. Impression: Lung RADS 2: Benign appearance. 12 month follow-up screening CT advised.
--- OUTSIDE RECORDS SUMMARY | 2025-02-17 17:16 | XMS_ITS | Clinical Summary ---
Author Organization [facility] [id number] Address [address] [place] [address] Care Team Providers Care Head Sawyer Automatic Name Role Phone Macho Velazco Primary Care Provider [phone] Mesfin Garza MD Unavailable [phone] Allergies No known active allergies Medications HYDROcodone-aceta minophen (NORCO) 10-325 mg per tablet Take 1 tablet by mouth every 6 (six) hours as needed 3 Active multivitamin tabletIndications :Vitamin Deficiency Prevention Take 1 tablet by mouth daily Active omega-3 fatty acids-fish oil 300-1,000 mg capsule Take 1 g by mouth daily Active albuterol HFA (ProAir HFA) 90 mcg/actuation inhaler Inhale 2 puffs every 4 (four) hours as needed for wheezing or shortness of breath 8.5 g 5 3 Active budesonide-formot Geraldo (Symbicort) 80-4.5 mcg/actuation inhaler Inhale 2 puffs 2 (two) times a day Rinse mouth with water after use. Do not swallow. 1 each 3 3 Active metoprolol tartrate (LOPRESSOR) 50 mg immediate release tablet Take 1 tablet (50 mg total) by mouth 2 (two) times a day 60 tablet 3 Active dilTIAZem CD/XR/XT (CARDIZEM CD,DILACOR XR) 120 mg 24 hr capsule Take 1 capsule (120 mg total) by mouth daily 30 capsule 3 Active apixaban (ELIQUIS) 5 mg tabletIndications :atrial fibrillation Take 1 tablet (5 mg total) by mouth every 12 (twelve) hours 60 tablet 3 Active Active Problems Problem Noted Date Diagnosed Date Prediabetes 12/26/2022 Assessment & Plan (12/26/2022 5:47 PM [employer]): 12/26/2022 A1c level 5.7 New diagnosis made Generalized weakness 12/25/2022 Sepsis 12/25/2022 Overview (12/25/2022): Assessment & Plan (12/26/2022 5:45 PM [employer]): Associated with pneumonia etiology WBC 70827, lactic acid 1.7, heart rate 140, respiratory rate 22 IV fluid Pending repeat lactate level Pending follow-up blood culture results IV antibiotics with ceftriaxone and azithromycin 12/26/2022 No growth to date on blood culture testing Urine streptococcal antigen negative Pending urine Legionella antigen Continue current antibiotic regimen Pneumonia 12/25/2022 Assessment & Plan (12/26/2022 5:46 PM [employer]): As seen on CT imaging IV antibiotics with ceftriaxone azithromycin Pending follow-up of blood culture results Urine antigen testing pending Respiratory rate testing pending 12/26/2022 Clinically improv continuing Continue current antibiotic regimen and supportive measures No growth to date on culture test Chronic obstructive pulmonar y disease with (acute) exacerbation 12/25/2022 Overview (12/25/2022): IV Solu-Medrol DuoNebs O2 via nasal cannula Assessment & Plan (12/26/2022 5:48 PM [employer]): IV Solu-Medrol DuoNebs O2 via nasal cannula Pulmonary consultation 12/26/2022 Pulmonology evaluation obtained with recommendations for follow-up CT imaging and PFTs studies as outpatient (please see consultation note) Clinically improving --- continue IV steroid regimen per pulmonology and reassess in a.m. Tachycardia, unspecified 12/25/2022 Overview (12/25/2022): Unclear etiology--possibly related to sepsis versus noncompliance to beta- ferny therapy Pending assessment a TSH and F T4 levels Echocardiogram IV metoprolol p.r.n. Assessment & Plan (12/25/2022 7:36 PM [employer]): Unclear etiology--possibly related to sepsis versus noncompliance to beta- ferny therapy Pending assessment a TSH and F T4 levels Echocardiogram IV metoprolol p.r.n. Pulmonary nodule 12/25/2022 Overview (12/25/2022): Long smoking history referred As seen on CT imaging Pulmonary consultation Assessment & Plan (12/26/2022 5:45 PM [employer]): Long smoking history referred As seen on CT imaging Pulmonary consultation 12/26/2022 Pulmonology evaluation obtained with recommendations for follow-up CT imaging and PFTs studies as outpatient (please see consultation note) Renal insufficiency 12/25/2022 Overview (12/25/2022): Limited lab data upon admission IV fluid Pending reassessment of BUN and creatinine levels with a.m. labs Assessment & Plan (12/26/2022 5:46 PM [employer]): Limited lab data upon admission IV fluid Pending reassessment of BUN and creatinine levels with a.m. labs 12/26/2022 Resolved Hypertension 12/25/2022 Overview (12/25/2022): Continue home regimen IV hydralazine p.r.n. Echocardiogram Assessment & Plan (12/25/2022 7:38 PM [employer]): Continue home regimen IV hydralazine p.r.n. Echocardiogram Elevated troponin 12/25/2022 Overview (12/25/2022): No active chest pain at time of evaluation Likely secondary to cardiac strain Echocardiogram Serial cardiac enzymes Cardiology consultation Assessment & Plan (12/25/2022 7:39 PM [employer]): No active chest pain at time of evaluation Likely secondary to cardiac strain Echocardiogram Serial cardiac enzymes Cardiology consultation Nonruptured cerebral aneurysm 03/22/2014 Epistaxis 09/28/2013 Hypertension 09/28/2013 Sinusitis 09/28/2013 Atrial fibrillation with RVR Hyponatremia Immunizations Immunization Administration Dates Next Due Influenza, Quadrivalent, Hig h Dose, Preservative Free, Intrr 12/31/2022 Medical History Medical History Date Comments Hypertension COPD (chronic obstructive pulmonary disease) (HC C) Arthritis Family History Medical History Relation Name Comments Diabetes Father Relation Name Status Comments Father Social History Tobacco Use Types Packs/Day Years Used Date Smoking Tobacco: Former Cigarettes Q uit: 12/02/2012 Smokeless Tobacco: Never Tobacco Cessation:Counseling Given: Not Answered Sex and Gender Information Value Date Recorded Sex Assigned at Not on file Legal Sex Male 3:34 AM [employer] Gender Identity Not on file Sexual Orientation Not on file Obstetrics History Last Filed Vital Signs Vital Sign Reading Time Taken Comments Blood Pressure 121/85 12/31/2022 11:22 AM [employer] Pulse 84 12/31/2022 11:22 AM [employer] Temperature 36.5 C (97.7 F) 12/31/2022 11:22 AM [employer] Respiratory Rate 18 12/31/2022 11:22 AM [employer] Oxygen Saturation 93% 12/31/2022 2:31 PM [employer] Inhaled Oxygen Concentration - - Weight 85.1 kg (187 lb 9.4 oz) 12/25/2022 7:45 P M [employer] Height 172.7 cm (5' 7.99 ) 12/25/2022 7:45 PM CS T Body Mass Index 28.53 12/25/2022 7:45 PM [employer] Plan of Treatment Health Maintenance Due Date Last Done Comments Depression Screening 1945 Hepatitis C Screening 1945 Hepatitis B Screening 1964 Zoster Vaccine (1 of 2) 1996 Well Visit 65+ 2011 Fall Risk Assessment 12/31/2023 12/31/2022 Covid-19 Vaccine (3 - 2023-2 5 season) 2024 09/04/2021, 07/03/2021 Influenza Vaccine (#1) 2024 , 12/30/2020, 10/18/2019, Additional history exists DTaP/Tdap/Td Vaccine (2 - Td or Tdap) 01/13/2030 01/13/2020 Pneumococcal vaccine 65+ Completed 10/19/2018, 09/01 Insurance R [employer] [facility] Address: [address] [address] [place] [address] R HMO [facility] [facility] Address: [address] [address] [place] [address] R HMO REF Advance Directives For more information, please contact: [phone] * Full Code (Latest Code Status on File) Date Activated Date Inactivated Comments 12/25/2022 7:24 PM 12/31/2022 7:32 PM Care Teams Head Sawyer Automatic Relationship Specialty Start Date End Date Macho Velazco DO PCP - General 05/25/19 Mesfin Garza MD 05/25/19
--- OUTSIDE RECORDS SUMMARY | 2025-02-17 17:16 | XMS_ITS | Clinical Summary ---
Author Organization [facility] Address [address] [place] [address] Care Team Providers Care Social Media Project Manager Name Role Phone Ulisses Downing MD Primary Care Provider [phone] Allergies No known active allergies Medications ELIQUIS 2.5 MG tablet Take 1 tablet (2.5 mg total) by mouth 2 (two) times daily. 5 Active SYMBICORT 160-4.5 MCG/ACT inhaler inhale 2 puffs by mouth every 12 hours 5 Active albuterol sulfate HFA 108 (90 Base) MCG/ACT inhaler INHALE 1 PUFF BY MOUTH EVERY 4 HOURS NEEDED FOR SHORTNESS OF BREATH OR WHEEZING 5 Active metoprolol tartrate (LOPRESSOR) 50 MG tablet Take 1 tablet (50 mg total) by mouth 2 (two) times daily. 5 Active Multiple Vitamin (MULTI-VITAMIN) tablet Take 1 tablet by mouth daily. Active HYDROcodone-michael taminophen (NORCO) 7.5-325 MG tablet Take 1 tablet by mouth every 6 (six) hours as needed. 5 Active DILT-XR 120 MG 24 hr capsule Take 2 capsules (240 mg total) by mouth daily. 4 Active tamsulosin (FLOMAX) 0.4 MG Cap Take 1 capsule (0.4 mg total) by mouth daily. Active Encounters Date Type Department Care Team Description 02/08/2025 8:31 AM CDT - 02/08/2025 11:59 PM CDT Hospital Encounter [facility] [place] [address] Tomi Kellogg MD Discharge Disposition: Home or Self Care (Routine Discharge) 02/08/2025 Travel 01/20/2025 2:40 PM BROKE HANDLER Office Visit [facility] Multispecialty Care - [address], [address] [place] [address] Tomi Kellogg MD New Patient 01/20/2025 Travel from Last 3 Months Family History Medical History Relation Comments Diabetes Father htn Mother Relation Status Comments Father Mother Social History Tobacco Use Types Packs/Day Years Used Date Smoking Tobacco: Former Cigarettes Smokeless Tobacco: Never Tobacco Cessation:Counseling Given: No Alcohol Use Standard Drinks/Week Comments Not Currently 0 (1 standard drink = 0.6 oz pur e alcohol) Socialy PHQ-2 Answer Date Recorded Patient Health Questionnaire-2 Score 0 01/20/2025 Sex and Gender Information Value Date Recorded Sex Assigned at Male 02/08/2025 8:28 AM CDT Legal Sex Male 3:22 PM CDT Gender Identity Not on file Sexual Orientation Not on file Last Filed Vital Signs Vital Sign Reading Time Taken Comments Blood Pressure 131/86 01/20/2025 2:55 PM BROKE HANDLER Pulse 96 01/20/2025 2:55 PM BROKE HANDLER Temperature 37.3 C (99.1 F) 01/20/2025 2:55 PM BROKE HANDLER Respiratory Rate - - Oxygen Saturation 98% 01/20/2025 2:55 PM BROKE HANDLER Inhaled Oxygen Concentration - - Weight 79.5 kg (175 lb 4.8 oz) 01/20/2025 2:55 P M BROKE HANDLER Height 174 cm (5' 8.5 ) 01/20/2025 2:55 PM BROKE HANDLER Body Mass Index 26.27 01/20/2025 2:55 PM BROKE HANDLER Plan of Treatment Health Maintenance Due Date Last Done Comments Zoster Vaccines (1 of 2) 1996 Annual Medicare Wellness Visit 2011 DTaP, Tdap and Td Vaccines (2 - Td or Tdap) 01/13/2030 01/13/2020 Pneumococcal Vaccine: 65+ Years Completed 10/19/2018, 09/17/2017 COVID-19 Vaccine Completed 09/11/2024, 03/2021, 07/03/2021 Influenza Adult Completed 09/11/2024, 12/04, 12/30/2020, Additional history exists RSV Immunization or 60+ Years Completed 12/31/2024 PHQ-2 ([place]) Completed 01/20/2025 Hepatitis C Completed 02/08/2025, 01/20/2025 Meningococcal B Vaccine Aged Out No l onger eligible based on patient's age to complete this topic Meningococcal Vaccine Aged Out No tatianna thuy eligible based on patient's age to complete this topic RSV Immunizations Under 20 Months Aged Out No longer eligible based on patient's age to complete this topic Procedures Procedure Name Priority Date/Time Associated Diagnosis Comments US ABD LIMITED Routine 02/08/2025 9:18 AM CDT Hepatitis C virus infection without hepatic coma, unspecified chronicity from Last 3 Months Results * US ABD LIMITED (02/08/2025 9:18 AM CDT) Anatomical Region Laterality Modality Abdomen Ultrasound 02/10/2025 8:40 AM CDT Impressions 02/10/2025 9:13 AM CDT IMPRESSION: 1. Generally echogenic liver with mildly coarse echogenicity. No apparent focal mass or intrahepatic biliary dilation. 2. Distended gallbladder. Cholelithiasis with 10 mm and 6 mm gallstones. Mild gallbladder sludge. Gallbladder wall thickness at upper limits normal of 3 mm. No sonographic Snowden's sign. 3. Obscured pancreatic tail but no appreciable abnormality of the visualized pancreas. 4. 1.3 cm right renal cyst for which no follow-up is required per consensus guidelines. Ordered By: TOMI KELLOGG Interpreted By: Juan De Santiago, 02/10/2025 8:40 AM Narrative 02/10/2025 9:13 AM CDT [facility] [address] [place], [place] [address] IMAGING STUDIES: US ABD LIMITED DATE: 02/08/2025 8:34 AM HISTORY: hep c 79-year-old male. Gastroenterology clinical note of 01/20/2025. Reported recent diagnosis of hepatitis C. Occasional abdominal pain and gassy sensation with certain foods. Patient is reportedly 5 feet 8 inches and 175 pounds on 01/20/2025. COMPARISON: None at this institution. DISCUSSION: Generally echogenic liver with mildly coarse echogenicity. Liver length of 17.4 cm. No focal hepatic mass. No intrahepatic biliary ductal distention. Color doppler imaging of the hepatic veins, inferior vena cava and portal vein and pulse Doppler imaging of the portal vein. Appropriate flow direction in the portal vein and normal color Doppler imaging of the interrogated venous system. Additional cine imaging of the gallbladder. Distended gallbladder of approximately 10.4 x 4.7 x 6.1 cm. 10 x 5 mm gallstone and 6 mm gallstone. Mild gallbladder sludge. Gallbladder wall is up to 3 mm thickness (upper limits normal is 3 mm). No sonographic Snowden's sign. Common bile duct is normal at 3 mm diameter. Bowel gas obscures the pancreatic tail. No appreciable abnormality of the visualized pancreas. Right kidney 10.7 x 5.1 x 4.7 cm. No hydronephrosis or soft tissue renal mass. 1.3 x 0.9 x 1.3 cm partially exophytic cyst in the mid to lower pole. No follow-up is required per consensus guidelines. Normal color Doppler signal within the right kidney. Procedure Note Juan De Santiago MD - 02/10/[address] [address] IMAGING STUDIES: US ABD LIMITEDDATE: 02/08/2025 8:34 AM HISTORY: hep c 79-year-old male. Gastroenterology clinical note of01/20/2025. Reported recent diagnosis of hepatitis C. Occasional abdominalpain and gassy sensation with certain foods. Patient is reportedly 5 feet8 inches and 175 pounds on 01/20/2025. COMPARISON: None at this institution. DISCUSSION: Generally echogenic liver with mildly coarse echogenicity. Liver length of17.4 cm. No focal hepatic mass. No intrahepatic biliary ductaldistention. Color doppler imaging of the hepatic veins, inferior vena cava and portalvein and pulse Doppler imaging of the portal vein. Appropriate flowdirection in the portal vein and normal color Doppler imaging of theinterrogated venous system. Additional cine imaging of the gallbladder. Distended gallbladder ofapproximately 10.4 x 4.7 x 6.1 cm. 10 x 5 mm gallstone and 6 mm gallstone.Mild gallbladder sludge. Gallbladder wall is up to 3 mm thickness (upperlimits normal is 3 mm). No sonographic Snowden's sign. Common bile duct is normal at 3 mm diameter. Bowel gas obscures the pancreatic tail. No appreciable abnormality of thevisualized pancreas. Right kidney 10.7 x 5.1 x 4.7 cm. No hydronephrosis or soft tissue renalmass. 1.3 x 0.9 x 1.3 cm partially exophytic cyst in the mid to lowerpole. No follow-up is required per consensus guidelines. Normal colorDoppler signal within the right kidney. IMPRESSION: 1. Generally echogenic liver with mildly coarse echogenicity. No apparentfocal mass or intrahepatic biliary dilation. 2. Distended gallbladder. Cholelithiasis with 10 mm and 6 mm gallstones.Mild gallbladder sludge. Gallbladder wall thickness at upper limits normalof 3 mm. No sonographic Snowden's sign. 3. Obscured pancreatic tail but no appreciable abnormality of thevisualized pancreas. 4. 1.3 cm right renal cyst for which no follow-up is required perconsensus guidelines. Ordered By: TOMI KELLOGG Interpreted By: Juan De Santiago, 02/10/2025 8:40 AM Tomi Kellogg MD ULTRASOUND Final Result from Last 3 Months Insurance [facility] Care Teams Social Media Project Manager Relationship Specialty Start Date End Date Ulisses Downing MD [address] [place] [address] PCP - General FAMILY PRACTICE 01/20/25
--- OUTSIDE RECORDS SUMMARY | 2025-02-17 17:16 | XMS_ITS | Referral Summary ---
Author Organization [facility] [address] Address [address] [place] [address] Care Team Providers Care Family Development Extension Specialist Name Role Phone Macho Velazco Primary Care Provider [phone] Mesfin Garza MD Unavailable [phone] Allergies No known active allergies Medications HYDROcodone-aceta [...] 12/26/2022 Assessment & Plan (12/26/2022 5:47 PM FLIGHT AGENT): 12/26/2022 A1c level 5.7 New diagnosis made Generalized weakness 12/25/2022 Sepsis 12/25/2022 Overview (12/25/2022): Assessment & Plan (12/26/2022 5:45 PM FLIGHT AGENT): Associated with pneumonia etiology WBC 12481, lactic acid 1.7, heart rate 140, respiratory rate 22 IV fluid Pending repeat lactate level Pending follow-up blood culture results IV antibiotics with ceftriaxone and azithromycin 12/26/2022 No growth to date on blood culture testing Urine streptococcal antigen negative Pending urine Legionella antigen Continue current antibiotic regimen Pneumonia 12/25/2022 Assessment & Plan (12/26/2022 5:46 PM FLIGHT AGENT): As seen on CT imaging IV antibiotics [...] cannula Assessment & Plan (12/26/2022 5:48 PM FLIGHT AGENT): IV Solu-Medrol DuoNebs O2 via nasal cannula [...] p.r.n. Assessment & Plan (12/25/2022 7:36 PM FLIGHT AGENT): Unclear etiology--possibly related to sepsis versus noncompliance to beta- ferny therapy Pending assessment a TSH and F T4 levels Echocardiogram IV metoprolol p.r.n. Pulmonary nodule 12/25/2022 Overview (12/25/2022): Long smoking history referred As seen on CT imaging Pulmonary consultation Assessment & Plan (12/26/2022 5:45 PM FLIGHT AGENT): Long smoking history referred As seen on CT imaging Pulmonary consultation 12/26/2022 Pulmonology evaluation obtained with recommendations for follow-up CT imaging and PFTs studies as outpatient (please see consultation note) Renal insufficiency 12/25/2022 Overview (12/25/2022): Limited lab data upon admission IV fluid Pending reassessment of BUN and creatinine levels with a.m. labs Assessment & Plan (12/26/2022 5:46 PM FLIGHT AGENT): Limited lab data upon admission IV fluid Pending reassessment of BUN and creatinine levels with a.m. labs 12/26/2022 Resolved Hypertension 12/25/2022 Overview (12/25/2022): Continue home regimen IV hydralazine p.r.n. Echocardiogram Assessment & Plan (12/25/2022 7:38 PM FLIGHT AGENT): Continue home regimen IV hydralazine p.r.n. 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 Epistaxis 09/28/2013 Hypertension 09/28/2013 Sinusitis 09/28/2013 Atrial fibrillation with RVR Hyponatremia Immunizations Immunization Administration Dates Next Due Influenza, Quadrivalent, Hig h Dose, Preservative Free, Intrr 12/31/2022 Social History Tobacco Use Types Packs/Day Years Used Date Smoking Tobacco: Former Cigarettes Q uit: 12/02/2012 Smokeless Tobacco: Never Tobacco Cessation:Counseling Given: Not Answered Sex and Gender Information Value Date Recorded Sex Assigned at Not on file Legal Sex Male 3:34 AM FLIGHT AGENT Gender Identity Not on file Sexual Orientation Not on file Last Filed Vital Signs Vital Sign Reading Time Taken Comments Blood Pressure 121/85 12/31/2022 11:22 AM FLIGHT AGENT Pulse 84 12/31/2022 11:22 AM FLIGHT AGENT Temperature 36.5 C (97.7 F) 12/31/2022 11:22 AM FLIGHT AGENT Respiratory Rate 18 12/31/2022 11:22 AM FLIGHT AGENT Oxygen Saturation 93% 12/31/2022 2:31 PM FLIGHT AGENT Inhaled Oxygen Concentration - - Weight 85.1 kg (187 lb 9.4 oz) 12/25/2022 7:45 P M FLIGHT AGENT Height 172.7 cm (5' 7.99 ) 12/25/2022 7:45 PM CS T Body Mass Index 28.53 12/25/2022 7:45 PM FLIGHT AGENT Plan of Treatment Not on file Insurance [facility] MDCR HMO REF [facility] Address: [facility] [address] [place] [address] R HMO REF [facility] MEDIC[facility] Address: [place] [phone] HMO REF [facility] MEDIC[facility] Address: [place] [address] Advance Directives For more information, please contact: [phone] * Full Code (Latest Code Status on File) Date Activated Date Inactivated Comments 12/25/2022 7:24 PM 12/31/2022 7:32 PM Care Teams Family Development Extension Specialist Relationship Specialty Start Date End Date Macho Velazco DO PCP - General 05/25/19 Mesfin Garza MD 05/25/19
== END 2025-02-17 16:23 | disposition home or self-care (01) ==
PROVIDERS: PCP Family Medicine; Visit Provider Family Medicine
DX: Z12.2 Encounter for screening for malignant neoplasm of respiratory organs (principal); Z87.891 Personal history of nicotine dependence
CPT/HCPCS: 71271

== ENCOUNTER 2025-03-12 10:19 | Outpatient (CLI) | payer MEDICARE, SELFPAY ==
--- OUTSIDE RECORDS SUMMARY | 2025-03-12 10:57 | XMS_ITS | Clinical Summary ---
Author Organization [facility] Address [address] [place] [address] Care Team Providers Care Pro Shop Attendant Name Role Phone Ulisses Downing MD Primary Care Provider [phone] Allergies No known active allergies Medications ELIQUIS [...] Encounters Date Type Department Care Team Description 02/22/2025 Telephone [facility] Multispecialty Care - [address], [address] [place] [address] Ulisses Downing MD Kim, Peter S, MD Results 02/08/2025 8:31 AM CDT - 02/08/2025 11:59 PM CDT Hospital Encounter [facility] [address] [place] [address] Tomi Kellogg MD Discharge Disposition: Home or Self Care (Routine Discharge) 02/08/2025 Travel 01/20/2025 2:40 PM JAVA DEVELOPER WITH SECURITY CLEARANCE Office Visit [facility] Multispecialty Care - [facility] [address] [facility] [place] [address] Tomi Kellogg MD New Patient 01/20/2025 Travel [...] Comments Blood Pressure 131/86 01/20/2025 2:55 PM JAVA DEVELOPER WITH SECURITY CLEARANCE Pulse 96 01/20/2025 2:55 PM JAVA DEVELOPER WITH SECURITY CLEARANCE Temperature 37.3 C (99.1 F) 01/20/2025 2:55 PM JAVA DEVELOPER WITH SECURITY CLEARANCE Respiratory Rate - - Oxygen Saturation 98% 01/20/2025 2:55 PM JAVA DEVELOPER WITH SECURITY CLEARANCE Inhaled Oxygen Concentration - - Weight 79.5 kg (175 lb 4.8 oz) 01/20/2025 2:55 P M JAVA DEVELOPER WITH SECURITY CLEARANCE Height 174 cm (5' 8.5 ) 01/20/2025 2:55 PM JAVA DEVELOPER WITH SECURITY CLEARANCE Body Mass Index 26.27 01/20/2025 2:55 PM JAVA DEVELOPER WITH SECURITY CLEARANCE Plan of Treatment Health Maintenance Due Date Last Done Comments Zoster Vaccines (1 of 2) 1996 Annual Medicare Wellness Visit 2011 COVID-19 Vaccine (2023- 5 season) 2025 09/11/2024, 09/04/2021, 07/03/2021 DTaP, Tdap and Td Vaccines ( 2 - Td or Tdap) 01/13/2030 01/13/2020 Pneumococcal Vaccine: 65+ Years Completed 10/19/2018, 09/17/2017 RSV Immunization or 60+ Years Completed 12/31/2024 PHQ-2 ([facility] [place]) Completed 01/20/2025 Hepatitis C Completed 02/08/2025, 01/20/2025 Meningococcal B Vaccine Aged Out No l onger eligible based on patient's age to complete this topic Meningococcal Vaccine Aged Out No tatianna thuy eligible based on patient's age to complete this topic RSV Immunizations Under 20 Months Aged Out No longer eligible b ased on patient's age to complete this topic [...] 8:40 AM Narrative 02/10/2025 9:13 AM CDT [facility] [address] [address] IMAGING STUDIES: US ABD LIMITED DATE: 02/08/2025 [...] Note Juan De Santiago MD - 02/10/2025 [facility] [address] [place], [place] [address] IMAGING STUDIES: US ABD LIMITEDDATE: 02/08/2025 8:34 [...] By: Juan De Santiago, 02/10/2025 8:40 AM us Tomi Kellogg MD ULTRASOUND Final Result from Last 3 Months Insurance [facility] Care Teams Pro Shop Attendant Relationship Specialty Start Date End Date Ulisses Downing MD [address] [place] [id number] PCP - General FAMILY PRACTICE 01/20/25
--- OUTSIDE RECORDS SUMMARY | 2025-03-12 10:57 | XMS_ITS | Referral Summary ---
Author Organization [facility] [address] Address [address] [place] [address] Care Team Providers Care Disc Sander Name Role Phone Macho Velazco Primary Care Provider [phone] Mesfin Garza MD Unavailable [phone] Allergies No known active allergies Medications [...] 12/26/2022 Assessment & Plan (12/26/2022 5:47 PM SUPERVISOR METAL PLACING): 12/26/2022 A1c level 5.7 New diagnosis made Generalized weakness 12/25/2022 Sepsis 12/25/2022 Overview (12/25/2022): Assessment & Plan (12/26/2022 5:45 PM SUPERVISOR METAL PLACING): Associated with pneumonia etiology WBC 44630, lactic acid 1.7, heart rate 140, respiratory rate 22 IV fluid Pending repeat lactate level Pending follow-up blood culture results IV antibiotics with ceftriaxone and azithromycin 12/26/2022 No growth to date on blood culture testing Urine streptococcal antigen negative Pending urine Legionella antigen Continue current antibiotic regimen Pneumonia 12/25/2022 Assessment & Plan (12/26/2022 5:46 PM SUPERVISOR METAL PLACING): As seen on CT imaging IV antibiotics [...] cannula Assessment & Plan (12/26/2022 5:48 PM SUPERVISOR METAL PLACING): IV Solu-Medrol DuoNebs O2 via nasal cannula [...] p.r.n. Assessment & Plan (12/25/2022 7:36 PM SUPERVISOR METAL PLACING): Unclear etiology--possibly related to sepsis versus noncompliance to beta- ferny therapy Pending assessment a TSH and F T4 levels Echocardiogram IV metoprolol p.r.n. Pulmonary nodule 12/25/2022 Overview (12/25/2022): Long smoking history referred As seen on CT imaging Pulmonary consultation Assessment & Plan (12/26/2022 5:45 PM SUPERVISOR METAL PLACING): Long smoking history referred As seen on CT imaging Pulmonary consultation 12/26/2022 Pulmonology evaluation obtained with recommendations for follow-up CT imaging and PFTs studies as outpatient (please see consultation note) Renal insufficiency 12/25/2022 Overview (12/25/2022): Limited lab data upon admission IV fluid Pending reassessment of BUN and creatinine levels with a.m. labs Assessment & Plan (12/26/2022 5:46 PM SUPERVISOR METAL PLACING): Limited lab data upon admission IV fluid Pending reassessment of BUN and creatinine levels with a.m. labs 12/26/2022 Resolved Hypertension 12/25/2022 Overview (12/25/2022): Continue home regimen IV hydralazine p.r.n. Echocardiogram Assessment & Plan (12/25/2022 7:38 PM SUPERVISOR METAL PLACING): Continue home regimen IV hydralazine p.r.n. Echocardiogram Elevated troponin 12/25/2022 Overview (12/25/2022): No active chest pain at time of evaluation Likely secondary to cardiac strain Echocardiogram Serial cardiac enzymes Cardiology consultation Assessment & Plan (12/25/2022 7:39 PM SUPERVISOR METAL PLACING): No active chest pain at time of [...] on file Legal Sex Male 3:34 AM SUPERVISOR METAL PLACING Gender Identity Not on file Sexual Orientation Not on file Last Filed Vital Signs Vital Sign Reading Time Taken Comments Blood Pressure 121/85 12/31/2022 11:22 AM SUPERVISOR METAL PLACING Pulse 84 12/31/2022 11:22 AM SUPERVISOR METAL PLACING Temperature 36.5 C (97.7 F) 12/31/2022 11:22 AM SUPERVISOR METAL PLACING Respiratory Rate 18 12/31/2022 11:22 AM SUPERVISOR METAL PLACING Oxygen Saturation 93% 12/31/2022 2:31 PM SUPERVISOR METAL PLACING Inhaled Oxygen Concentration - - Weight 85.1 kg (187 lb 9.4 oz) 12/25/2022 7:45 P M SUPERVISOR METAL PLACING Height 172.7 cm (5' 7.99 ) 12/25/2022 7:45 PM CS T Body Mass Index 28.53 12/25/2022 7:45 PM SUPERVISOR METAL PLACING Plan of Treatment Not on file Insurance [facility] MDCR HMO REF R HMO REF Member Subscriber Plan / Payer (Ef fective 2018-Present) Name:Dickson Sorensen Relation to Subscriber:Self Name:Dickson Sorensen Payer ID:[id number] (NAIC) Type:[facility] MEDICARE Address: [place] [phone] HMO REF Advance Directives For more information, please contact: [phone] * Full Code (Latest Code Status on File) Date Activated Date Inactivated Comments 12/25/2022 7:24 PM 12/31/2022 7:32 PM Care Teams Disc Sander Relationship Specialty Start Date End Date Macho Velazco DO PCP - General 05/25/19 Mesfin Garza MD 05/25/19
--- OUTSIDE RECORDS SUMMARY | 2025-03-12 10:57 | XMS_ITS | Clinical Summary ---
Author Organization [facility] [address] Address [address] [place] [address] Care Team Providers Care Tank Tester Name Role Phone Macho Velazco Primary Care Provider [phone] Mesfin Garza MD Unavailable [phone] Allergies No known active allergies Medications HYDROcodone-aceta [...] 12/26/2022 Assessment & Plan (12/26/2022 5:47 PM SILVERWARE CLEANER): 12/26/2022 A1c level 5.7 New diagnosis made Generalized weakness 12/25/2022 Sepsis 12/25/2022 Overview (12/25/2022): Assessment & Plan (12/26/2022 5:45 PM SILVERWARE CLEANER): Associated with pneumonia etiology WBC 35787, lactic acid 1.7, heart rate 140, respiratory rate 22 IV fluid Pending repeat lactate level Pending follow-up blood culture results IV antibiotics with ceftriaxone and azithromycin 12/26/2022 No growth to date on blood culture testing Urine streptococcal antigen negative Pending urine Legionella antigen Continue current antibiotic regimen Pneumonia 12/25/2022 Assessment & Plan (12/26/2022 5:46 PM SILVERWARE CLEANER): As seen on CT imaging IV antibiotics [...] cannula Assessment & Plan (12/26/2022 5:48 PM SILVERWARE CLEANER): IV Solu-Medrol DuoNebs O2 via nasal cannula [...] p.r.n. Assessment & Plan (12/25/2022 7:36 PM SILVERWARE CLEANER): Unclear etiology--possibly related to sepsis versus noncompliance to beta- ferny therapy Pending assessment a TSH and F T4 levels Echocardiogram IV metoprolol p.r.n. Pulmonary nodule 12/25/2022 Overview (12/25/2022): Long smoking history referred As seen on CT imaging Pulmonary consultation Assessment & Plan (12/26/2022 5:45 PM SILVERWARE CLEANER): Long smoking history referred As seen on CT imaging Pulmonary consultation 12/26/2022 Pulmonology evaluation obtained with recommendations for follow-up CT imaging and PFTs studies as outpatient (please see consultation note) Renal insufficiency 12/25/2022 Overview (12/25/2022): Limited lab data upon admission IV fluid Pending reassessment of BUN and creatinine levels with a.m. labs Assessment & Plan (12/26/2022 5:46 PM SILVERWARE CLEANER): Limited lab data upon admission IV fluid Pending reassessment of BUN and creatinine levels with a.m. labs 12/26/2022 Resolved Hypertension 12/25/2022 Overview (12/25/2022): Continue home regimen IV hydralazine p.r.n. Echocardiogram Assessment & Plan (12/25/2022 7:38 PM SILVERWARE CLEANER): Continue home regimen IV hydralazine p.r.n. Echocardiogram Elevated troponin 12/25/2022 Overview (12/25/2022): No active chest pain at time of evaluation Likely secondary to cardiac strain Echocardiogram Serial cardiac enzymes Cardiology consultation Assessment & Plan (12/25/2022 7:39 PM SILVERWARE CLEANER): No active chest pain at time of [...] on file Legal Sex Male 3:34 AM SILVERWARE CLEANER Gender Identity Not on file Sexual Orientation Not on file Obstetrics History Last Filed Vital Signs Vital Sign Reading Time Taken Comments Blood Pressure 121/85 12/31/2022 11:22 AM SILVERWARE CLEANER Pulse 84 12/31/2022 11:22 AM SILVERWARE CLEANER Temperature 36.5 C (97.7 F) 12/31/2022 11:22 AM SILVERWARE CLEANER Respiratory Rate 18 12/31/2022 11:22 AM SILVERWARE CLEANER Oxygen Saturation 93% 12/31/2022 2:31 PM SILVERWARE CLEANER Inhaled Oxygen Concentration - - Weight 85.1 kg (187 lb 9.4 oz) 12/25/2022 7:45 P M SILVERWARE CLEANER Height 172.7 cm (5' 7.99 ) 12/25/2022 7:45 PM CS T Body Mass Index 28.53 12/25/2022 7:45 PM SILVERWARE CLEANER Plan of Treatment Health Maintenance Due Date [...] Completed 10/19/2018, 09/01 Insurance R HMO [facility] MED[facility] Address: [address] [address] [place] [address] R HMO RE[facility] MEDIC[facility] Address: [address] [address] [place] [address] R HMO REF Advance Directives For more information, please contact: [phone] * Full Code (Latest Code Status on File) Date Activated Date Inactivated Comments 12/25/2022 7:24 PM 12/31/2022 7:32 PM Care Teams Tank Tester Relationship Specialty Start Date End Date Macho Velazco DO PCP - General 05/25/19 Mesfin Garza MD 05/25/19
[2025-03-12 12:01] LABS: Hematocrit 48.6 % (42.0-52.0); Mean Corpuscular HGB Conc 32.9 g/dl (32-36); Mean Corpuscular Hemoglobin 31.5 pg (26-34); Mean Corpuscular Volume 95.7 fl (80-100); Mean Platelet Volume 11.1 fl (7.4-10.4); Platelet Count Result 176 k/mm3 (150-375); Red Blood Count 5.08 M/mm3 (4.6-6.20); Red Cell Distribution Width 14.3 % (11.5-14.5); White Blood Count 10.1 K/mm3 (4.5-10.0)
[2025-03-12 12:23] LABS: Hemoglobin A1C 5.6 % (<5.7)
[2025-03-12 12:27] LABS: Alanine Aminotransferase 91 U/L (6-50); Albumin Level 4.2 g/dL (3.5-5.1); Alkaline Phosphatase 87 U/L (38-126); Anion Gap 8 mmol/L (4-12); Aspartate Amino Transferase 72 U/L (17-59); Blood Urea Nitrogen 21 mg/dL (9-20); Calcium 9.1 mg/dL (8.4-10.2); Carbon Dioxide 29 mmol/L (22-30); Chloride 102 mmol/L (98-107); Estimated Glomerular Filt Rate > 60; Glucose 89 mg/dL (65-110); Potassium 4.5 mmol/L (3.4-5.0); Sodium 139 mmol/L (137-145)
[2025-03-12 12:38] LABS: Vitamin D 25 Hydroxy 48.8 ng/mL
[2025-03-15 08:15] LABS: Reference Lab Test Name Drug Mon Opiates Scr
[2025-03-15 08:19] LABS: Reference Lab Test Result Positive
[2025-03-16 13:33] LABS: NIL 0.02 IU/mL; Quantiferon TB Plus, 1T NEGATIVE (NEGATIVE)
== END 2025-03-12 10:20 | disposition home or self-care (01) ==
PROVIDERS: PCP Family Medicine; Referring Provider Dermatology; Visit Provider Family Medicine
DX: M15.9 Polyosteoarthritis, unspecified (principal); Z11.7 Encounter for testing for latent tuberculosis infection; R73.03 Prediabetes; I10 Essential (primary) hypertension; I48.91 Unspecified atrial fibrillation; E55.9 Vitamin D deficiency, unspecified; Z51.81 Encounter for therapeutic drug level monitoring; Z79.891 Long term (current) use of opiate analgesic; Z79.899 Other long term (current) drug therapy
CPT/HCPCS: 36415; 80053; 80307; 82306; 82607; 83036; 85027; 86480

== ENCOUNTER 2025-05-02 07:32 | Inpatient (IN) | payer MEDICARE, SELFPAY ==
[2025-05-02] VITALS (21 sets, daily range): BP systolic 112–160; BP diastolic 80–113; PULSE 75–155; RESP 15–22; TEMP 36.6–37.1; O2SAT 90–96; BMI 26.2
--- NOTE | ~2025-05-02 | CT_ITS ---
EXAMINATION: CT diagnostic chest wo con DATE: 05/02/2025 10:55 INDICATION: Pneumonia TECHNIQUE: Computed tomography (CT) of the chest was performed without intravenous contrast. Addition al 3D reconstructions utilizing coronal maximum intensity projection (MIP) were performed. Automated exposure control and iterative reconstruction technique were employed. The dose-length product was 20 8.92 mGy-cm. COMPARISON: None FINDINGS: There is linear discoid atelectasis in the dependent aspect bilateral lower lobes. There is bronchial wall thickening, mucous plugging and small region of groundglass opacity and consolidation at the po sterior medial right lung base suspicious for superimposed pneumonia. There are some additional bronc hial wall thickening and mucous plugging in the right middle lobe but without more peripheral airspac e disease. No pulmonary edema or pleural effusion. Heart size is normal. Atherosclerotic coronary art cristina calcifications and aortic valve calcification. Thoracic aorta is normal in caliber. No pathologic ally enlarged thoracic lymphadenopathy. Severe thoracic spondylosis. Visualized upper abdomen is unre markable. IMPRESSION: 1. Bronchitis and mucous plugging in the right middle and lower lobes with more focal small region of pneumonia at the posterior basilar right lower lobe. Reviewed, dictated and finalized at location A.
--- NOTE | ~2025-05-02 | XR_ITS ---
EXAMINATION: XR chest 1V portable DATE: 05/02/2025 07:55 INDICATION: Shortness of breath TECHNIQUE: frontal view of the chest was obtained. COMPARISON: Chest radiograph dated 02/17/2025 FINDINGS: Pulmonary markings extend beyond a skinfold which projects obliquely over the right upper lung zone. Mild bibasilar opacities and favor persistent atelectasis/scarring over pneumonia. Heart size is norm al. IMPRESSION: 1. Mild bibasilar opacities and favor persistent atelectasis/scarring over pneumonia. Reviewed, dictated and finalized at location A. IMPRESSION: 1. Mild bibasilar opacities and favor persistent atelectasis/scarring over pneu monia.
--- OUTSIDE RECORDS SUMMARY | 2025-05-02 07:34 | XMS_ITS | Clinical Summary ---
Author Organization [facility] [address] [facility] [address] Address [address] [place] [address] Care Team Providers Care Wall Washer Name Role Phone Macho Velazco DO Primary Care Provider [phone] Mesfin Garza MD Unavailable Allergies No known active allergies Medications HYDROcodone-aceta [...] 12/26/2022 Assessment & Plan (12/26/2022 5:47 PM BIOMETRICS CONSULTANT): 12/26/2022 A1c level 5.7 New diagnosis made Generalized weakness 12/25/2022 Sepsis 12/25/2022 Overview (12/25/2022): Assessment & Plan (12/26/2022 5:45 PM BIOMETRICS CONSULTANT): Associated with pneumonia etiology WBC 50672, lactic acid 1.7, heart rate 140, respiratory rate 22 IV fluid Pending repeat lactate level Pending follow-up blood culture results IV antibiotics with ceftriaxone and azithromycin 12/26/2022 No growth to date on blood culture testing Urine streptococcal antigen negative Pending urine Legionella antigen Continue current antibiotic regimen Pneumonia 12/25/2022 Assessment & Plan (12/26/2022 5:46 PM BIOMETRICS CONSULTANT): As seen on CT imaging IV antibiotics [...] cannula Assessment & Plan (12/26/2022 5:48 PM BIOMETRICS CONSULTANT): IV Solu-Medrol DuoNebs O2 via nasal cannula [...] p.r.n. Assessment & Plan (12/25/2022 7:36 PM BIOMETRICS CONSULTANT): Unclear etiology--possibly related to sepsis versus noncompliance to beta- ferny therapy Pending assessment a TSH and F T4 levels Echocardiogram IV metoprolol p.r.n. Pulmonary nodule 12/25/2022 Overview (12/25/2022): Long smoking history referred As seen on CT imaging Pulmonary consultation Assessment & Plan (12/26/2022 5:45 PM BIOMETRICS CONSULTANT): Long smoking history referred As seen on CT imaging Pulmonary consultation 12/26/2022 Pulmonology evaluation obtained with recommendations for follow-up CT imaging and PFTs studies as outpatient (please see consultation note) Renal insufficiency 12/25/2022 Overview (12/25/2022): Limited lab data upon admission IV fluid Pending reassessment of BUN and creatinine levels with a.m. labs Assessment & Plan (12/26/2022 5:46 PM BIOMETRICS CONSULTANT): Limited lab data upon admission IV fluid Pending reassessment of BUN and creatinine levels with a.m. labs 12/26/2022 Resolved Hypertension 12/25/2022 Overview (12/25/2022): Continue home regimen IV hydralazine p.r.n. Echocardiogram Assessment & Plan (12/25/2022 7:38 PM BIOMETRICS CONSULTANT): Continue home regimen IV hydralazine p.r.n. Echocardiogram Elevated troponin 12/25/2022 Overview (12/25/2022): No active chest pain at time of evaluation Likely secondary to cardiac strain Echocardiogram Serial cardiac enzymes Cardiology consultation Assessment & Plan (12/25/2022 7:39 PM BIOMETRICS CONSULTANT): No active chest pain at time of [...] on file Legal Sex Male 3:34 AM BIOMETRICS CONSULTANT Gender Identity Not on file Sexual Orientation Not on file Obstetrics History Last Filed Vital Signs Vital Sign Reading Time Taken Comments Blood Pressure 121/85 12/31/2022 11:22 AM BIOMETRICS CONSULTANT Pulse 84 12/31/2022 11:22 AM BIOMETRICS CONSULTANT Temperature 36.5 C (97.7 F) 12/31/2022 11:22 AM BIOMETRICS CONSULTANT Respiratory Rate 18 12/31/2022 11:22 AM BIOMETRICS CONSULTANT Oxygen Saturation 93% 12/31/2022 2:31 PM BIOMETRICS CONSULTANT Inhaled Oxygen Concentration - - Weight 85.1 kg (187 lb 9.4 oz) 12/25/2022 7:45 P M BIOMETRICS CONSULTANT Height 172.7 cm (5' 7.99) 12/25/2022 7:45 PM CS T Body Mass Index 28.53 12/25/2022 7:45 PM BIOMETRICS CONSULTANT Plan of Treatment Health Maintenance Due Date Last Done Comments Depression Screening 1945 Hepatitis C Screening 1945 Hepatitis B Screening 1964 Zoster Vaccine (1 of 2) 1996 Well Visit 65+ 2011 Fall Risk Assessment 12/31/2023 12/31/2022 Covid-19 Vaccine (3 - 2023-2 5 season) 2024 09/04/2021, 07/03/2021 Influenza Vaccine (Season Ended) 2025 12/31/2022, 12/30/2020, 10/18/2019, Additional history exists DTaP/Tdap/Td Vaccine (2 - Td or Tdap) 01/13/2030 01/13/2020 Pneumococcal vaccine 65+ Completed 10/19/2018, 09/01 Insurance R HMO RE[facility] MED[facility] Address: [address] [address] [place] [address] R HMO REF [facility] Address: [address] [address] [place] [address] R HMO REF [facility] Address: [address] [address] [place] [address] Advance Directives For more information, please contact: [phone] * Full Code (Latest Code Status on File) Date Activated Date Inactivated Comments 12/25/2022 7:24 PM 12/31/2022 7:32 PM Care Teams Wall Washer Relationship Specialty Start Date End Date Macho Velazco DO PCP - General 05/25/19 Mesfin Garza MD 05/25/19
--- OUTSIDE RECORDS SUMMARY | 2025-05-02 07:34 | XMS_ITS | Referral Summary ---
Author Organization [facility] [address] [facility] [address] Address [address] [place] [address] Care Team Providers Care Packaging Design Engineer Name Role Phone Macho Velazco DO Primary Care Provider [phone] Mesfin Garza MD Unavailable [phone] Allergies No known active allergies Medications HYDROcodone-aceta [...] Assessment & Plan (12/26/2022 5:47 PM SUPERVISOR FEED MILL): 12/26/2022 A1c level 5.7 New diagnosis made Generalized weakness 12/25/2022 Sepsis 12/25/2022 Overview (12/25/2022): Assessment & Plan (12/26/2022 5:45 PM SUPERVISOR FEED MILL): Associated with pneumonia etiology WBC 49035, lactic acid 1.7, heart rate 140, respiratory rate 22 IV fluid Pending repeat lactate level Pending follow-up blood culture results IV antibiotics with ceftriaxone and azithromycin 12/26/2022 No growth to date on blood culture testing Urine streptococcal antigen negative Pending urine Legionella antigen Continue current antibiotic regimen Pneumonia 12/25/2022 Assessment & Plan (12/26/2022 5:46 PM SUPERVISOR FEED MILL): As seen on CT imaging IV antibiotics [...] Assessment & Plan (12/26/2022 5:48 PM SUPERVISOR FEED MILL): IV Solu-Medrol DuoNebs O2 via nasal cannula [...] Assessment & Plan (12/25/2022 7:36 PM SUPERVISOR FEED MILL): Unclear etiology--possibly related to sepsis versus noncompliance to beta- ferny therapy Pending assessment a TSH and F T4 levels Echocardiogram IV metoprolol p.r.n. Pulmonary nodule 12/25/2022 Overview (12/25/2022): Long smoking history referred As seen on CT imaging Pulmonary consultation Assessment & Plan (12/26/2022 5:45 PM SUPERVISOR FEED MILL): Long smoking history referred As seen on CT imaging Pulmonary consultation 12/26/2022 Pulmonology evaluation obtained with recommendations for follow-up CT imaging and PFTs studies as outpatient (please see consultation note) Renal insufficiency 12/25/2022 Overview (12/25/2022): Limited lab data upon admission IV fluid Pending reassessment of BUN and creatinine levels with a.m. labs Assessment & Plan (12/26/2022 5:46 PM SUPERVISOR FEED MILL): Limited lab data upon admission IV fluid Pending reassessment of BUN and creatinine levels with a.m. labs 12/26/2022 Resolved Hypertension 12/25/2022 Overview (12/25/2022): Continue home regimen IV hydralazine p.r.n. Echocardiogram Assessment & Plan (12/25/2022 7:38 PM SUPERVISOR FEED MILL): Continue home regimen IV hydralazine p.r.n. Echocardiogram Elevated troponin 12/25/2022 Overview (12/25/2022): No active chest pain at time of evaluation Likely secondary to cardiac strain Echocardiogram Serial cardiac enzymes Cardiology consultation Assessment & Plan (12/25/2022 7:39 PM SUPERVISOR FEED MILL): No active chest pain at time of [...] file Legal Sex Male 3:34 AM SUPERVISOR FEED MILL Gender Identity Not on file Sexual Orientation Not on file Last Filed Vital Signs Vital Sign Reading Time Taken Comments Blood Pressure 121/85 12/31/2022 11:22 AM SUPERVISOR FEED MILL Pulse 84 12/31/2022 11:22 AM SUPERVISOR FEED MILL Temperature 36.5 C (97.7 F) 12/31/2022 11:22 AM SUPERVISOR FEED MILL Respiratory Rate 18 12/31/2022 11:22 AM SUPERVISOR FEED MILL Oxygen Saturation 93% 12/31/2022 2:31 PM SUPERVISOR FEED MILL Inhaled Oxygen Concentration - - Weight 85.1 kg (187 lb 9.4 oz) 12/25/2022 7:45 P M SUPERVISOR FEED MILL Height 172.7 cm (5' 7.99) 12/25/2022 7:45 PM CS T Body Mass Index 28.53 12/25/2022 7:45 PM SUPERVISOR FEED MILL Plan of Treatment Not on file Insurance [facility] MDCR HMO RE[facility] MEDIC[facility] Address: [facility] [address] [place] [address] [facility] Address: [place] [phone] HMO REF [facility] MEDIC[facility] Address: [place] [phone] Advance Directives For more information, please contact: [phone] * Full Code (Latest Code Status on File) Date Activated Date Inactivated Comments 12/25/2022 7:24 PM 12/31/2022 7:32 PM Care Teams Packaging Design Engineer Relationship Specialty Start Date End Date Macho Velazco DO PCP - General 05/25/19 Mesfin Garza MD 05/25/19
--- NOTE | 2025-05-02 07:36 | ECG_ITS ---
Test Date: 2025-05-02 07:40:41 Measurements Intervals [place] Rate: 159 P: 0 VT: 0 QRS: 53 QRSD: 82 T: 240 QT: 210 QTc: 342 Interpretive Statements ATRIAL FIBRILLATION WITH RAPID VENTRICULAR RESPONSE WITH FREQUENT VENTRICULAR PREMATURE COMPLEXES NONSPECIFIC ST & T-WAVE ABNORMALITY- ANTEROLAT/INF LEADS BASELINE ARTIFACT- I, II, III, AVR, AVL, AVF, V1-V6 ABNORMAL ECG No previous ECG available for comparison Electronically Signed On 05-02-2025 08:29:37 CDT by Ezequiel Hutchinson D.O.
--- NOTE | 2025-05-02 07:42 | ED_ITS ---
HPI - SOB/Dyspnea General Chief Complaint: Shortness of Breath/Dyspnea Stated Complaint: i think i got pneumonia Time Seen by Provider: 05/02/25 07:42 79 years old white male came from home with his sister by private car complaining of shortness of breath over the last 8 days. He denies any fever, chills, nausea, vomiting, chest pain. Worse with activity, slightly better at rest History of atrial fibrillation on Eliquis. Source: patient Limitations: no limitations History of Present Illness MD elicited complaint: shortness of breath Onset (ago): day(s) (A days ago) Related Data Home Medications ?Medication ?Instructions ?Recorded ?Confirmed ?Last Taken ?Type adalimumab 40 mg/0.8 mL See Rx Instructions subcut .COMPLEX 01/13/20 12/31/23 Unknown History subcutaneous syringe kit (Humira) multivitamin 1 tablet PO DAILY 01/09/23 12/31/23 Unknown History Allergies Allergy/AdvReac Type Severity Reaction Status Date / Time No Known Allergies Allergy Unknown Verified 07/01/24 10:25 Review of Systems 2 Review of Systems: All systems reviewed & are unremarkable except as noted in HPI and below PMFSH Past Medical History Medical History Prediabetes Atrial fibrillation COPD (chronic obstructive pulmonary disease) Lung nodules Umbilical hernia Brain aneurysm Enlarged prostate with lower urinary tract symptoms (LUTS) Essential (primary) hypertension Obstructive sleep apnea (adult) (pediatric) Other psoriatic arthropathy Polyosteoarthritis, unspecified Psoriasis vulgaris Vitamin D deficiency Surgical History Surgical History H/O arthroscopic knee surgery Family History Family History Father Family history of diabetes mellitus in first degree relative, Onset Age: 62 Patient's father is Diabetes mellitus Mother Family history of heart disease in male family member before age 55, Onset Age: 81 Patient's mother is Family history of cardiovascular disease Social History Social History Smoking packs per day: 1.5 Smoking cigarettes per day: 30.0 Years smoked: 40 Smoking pack-years: 60.00 Smoking status: Former smoker Tobacco type: cigarettes Second hand tobacco smoke exposure: No Smoking end date: 12/02/16 Alcohol intake: current Substance use: current Substance use type: marijuana Other substance usage details: COUPLE TIMES A WEEK Do You Feel Safe in your Home?: Yes Lack of Transportation: No Lack of Food: Never True Current Housing: Decline to Answer Concerned About Future Housing: No Difficulty Paying Gas/Electric Bills: Decline to Answer Difficulty Paying for Meds: No Currently Unemployed: No Education: High School Diploma/GED Difficulty w/ Childcare or Family Care: No Living arrangements: with family Spiritual care concerns: No Exam 2 Narrative: General appearance: Well-developed, well-nourished Skin: Normal color Head: Normocephalic, nontraumatic Eyes: Clear conjunctiva ENT: Oropharynx normal, ears normal, nose normal Neck: Supple, nontender Chest and respiratory: Airway patent, no respiratory distress, no accessory muscle use Heart: Tachycardia, irregular irregularity Abdomen: Soft, nontender, no organomegaly, quiet bowel sounds Vascular: Normal peripheral pulses, normal capillary refill. Musculoskeletal: Normal range of motion, nontender back Neurologic: Alert and oriented ?3, COMMUNITY DIRECTOR is normal as tested, no gross motor deficit Course Vital Signs Vital signs: Vital Signs Pulse Rate 152 H 05/02/25 07:39 Pulse Rate 134 H 05/02/25 08:07 Respiratory Rate 15 05/02/25 08:07 Blood Pressure 146/90 H 05/02/25 08:07 Pulse Oximetry 96 05/02/25 08:07 Oxygen Delivery Room Air 05/02/25 07:44 MDM - SOB/Dyspnea MDM Narrative Medical decision making narrative: Patient came with shortness of breath for the last 8 days Vital signs showing blood pressure 160/98, heart rate 152, saturation on room air 94%, otherwise within normal limit Physical examination reveals tachycardia with irregular irregularity consistent with atrial fibrillation Differential diagnosis AFib with RVR, congestive heart failure, coronary artery disease, electrolyte imbalance, pneumonia Blood workup today includes CBC, CMP, troponin, pro BMP showed WBC 15.7, PT 16.6, total bilirubin 1.4, AST 62 ALT 70, pro BNP 4230 EKG on arrival showed AFib with RVR at 152 beats per minute Chest x-ray showed atelectasis versus pneumonia. Atelectasis more likely, patient denies any coughing or fever Diagnosis AFib with RVR Controlled on IV Cardizem drip Admit to hospitalist Differential Diagnosis Differential diagnosis: Likely other (As above) Medical Records Attestation: I reviewed the patient's medical records. Lab Data Attestation: I reviewed the patient's lab results. 05/02/25 07:40 05/02/25 07:40 Labs: Lab Results 05/02/25 05/02/25 05/02/25 Range/Units 07:40 07:40 07:40 WBC 15.7 H (4.5-10.0) K/mm3 RBC 5.40 (4.6-6.20) M/mm3 Hgb 16.9 (14.0-18.0) g/dL Hct 50.0 (42.0-52.0) % MCV 92.6 (80-100) fl MCH 31.3 (26-34) pg MCHC 33.8 (32-36) g/dl RDW 14.1 (11.5-14.5) % Plt Count 196 (150-375) k/mm3 MPV 11.1 H (7.4-10.4) fl Immature Gran % (Auto) 0.4 (0-0.5) % Neut % (Auto) 59.0 (45.5-73.1) % Lymph % (Auto) 27.6 (18.3-44.2) % [place] % (Auto) 10.5 H (2.6-8.5) % Eos % (Auto) 2.1 (0-4.4) % Baso % (Auto) 0.4 (0.2-1.2) % Lymph # (Auto) 4.32 H (0.9-3.2) K/mm3 [place] # (Auto) 1.7 H (0.1-0.6) K/mm3 Eos # (Auto) 0.3 (0-0.3) K/mm3 Baso # (Auto) 0.1 (0.0-0.1) K/mm3 Abs Immat Gran (auto) 0.07 H (0.00-0.031) K/mm3 Absolute Neuts (auto) 9.2 H (1.3-6.7) K/mm3 Absolute Nucleated RBC 0.000 (0.0-0.012) K/mm3 Nucleated RBC % 0.0 (0.0-0.2) % PT 16.6 H (11.1-14.7) Seconds INR 1.4 APTT 33.1 (22.3-36.8) Seconds Sodium Cancelled 136 L Potassium Cancelled 4.4 Chloride Cancelled Carbon Dioxide Anion Gap BUN Creatinine Estim Creat Clear Calc Estimated GFR Glucose Calcium Total Bilirubin AST ALT Alkaline Phosphatase Troponin I (0.000-0.034) ng/mL NT-Pro-B Natriuret Pep (19.9-100) pg/mL Total Protein Albumin 05/02/25 05/02/25 05/02/25 Range/Units 07:40 07:40 07:40 WBC (4.5-10.0) K/mm3 RBC (4.6-6.20) M/mm3 Hgb (14.0-18.0) g/dL Hct (42.0-52.0) % MCV (80-100) fl MCH (26-34) pg MCHC (32-36) g/dl RDW (11.5-14.5) % Plt Count (150-375) k/mm3 MPV (7.4-10.4) fl Immature Gran % (Auto) (0-0.5) % Neut % (Auto) (45.5-73.1) % Lymph % (Auto) (18.3-44.2) % [place] % (Auto) (2.6-8.5) % Eos % (Auto) (0-4.4) % Baso % (Auto) (0.2-1.2) % Lymph # (Auto) (0.9-3.2) K/mm3 [place] # (Auto) (0.1-0.6) K/mm3 Eos # (Auto) (0-0.3) K/mm3 Baso # (Auto) (0.0-0.1) K/mm3 Abs Immat Gran (auto) (0.00-0.031) K/mm3 Absolute Neuts (auto) (1.3-6.7) K/mm3 Absolute Nucleated RBC (0.0-0.012) K/mm3 Nucleated RBC % (0.0-0.2) % PT (11.1-14.7) Seconds INR APTT (22.3-36.8) Seconds Sodium Potassium Chloride 101 Carbon Dioxide Cancelled 23 Anion Gap Cancelled 12 BUN Cancelled Creatinine Estim Creat Clear Calc Estimated GFR Glucose Calcium Total Bilirubin AST ALT Alkaline Phosphatase Troponin I (0.000-0.034) ng/mL NT-Pro-B Natriuret Pep (19.9-100) pg/mL Total Protein Albumin 05/02/25 05/02/25 05/02/25 Range/Units 07:40 07:40 07:40 WBC (4.5-10.0) K/mm3 RBC (4.6-6.20) M/mm3 Hgb (14.0-18.0) g/dL Hct (42.0-52.0) % MCV (80-100) fl MCH (26-34) pg MCHC (32-36) g/dl RDW (11.5-14.5) % Plt Count (150-375) k/mm3 MPV (7.4-10.4) fl Immature Gran % (Auto) (0-0.5) % Neut % (Auto) (45.5-73.1) % Lymph % (Auto) (18.3-44.2) % [place] % (Auto) (2.6-8.5) % Eos % (Auto) (0-4.4) % Baso % (Auto) (0.2-1.2) % Lymph # (Auto) (0.9-3.2) K/mm3 [place] # (Auto) (0.1-0.6) K/mm3 Eos # (Auto) (0-0.3) K/mm3 Baso # (Auto) (0.0-0.1) K/mm3 Abs Immat Gran (auto) (0.00-0.031) K/mm3 Absolute Neuts (auto) (1.3-6.7) K/mm3 Absolute Nucleated RBC (0.0-0.012) K/mm3 Nucleated RBC % (0.0-0.2) % PT (11.1-14.7) Seconds INR APTT (22.3-36.8) Seconds Sodium Potassium Chloride Carbon Dioxide Anion Gap BUN 29 H Creatinine Cancelled 1.02 Estim Creat Clear Calc Cancelled Not Reportable Estimated GFR Cancelled Glucose Calcium Total Bilirubin AST ALT Alkaline Phosphatase Troponin I (0.000-0.034) ng/mL NT-Pro-B Natriuret Pep (19.9-100) pg/mL Total Protein Albumin 05/02/25 05/02/25 05/02/25 Range/Units 07:40 07:40 07:40 WBC (4.5-10.0) K/mm3 RBC (4.6-6.20) M/mm3 Hgb (14.0-18.0) g/dL Hct (42.0-52.0) % MCV (80-100) fl MCH (26-34) pg MCHC (32-36) g/dl RDW (11.5-14.5) % Plt Count (150-375) k/mm3 MPV (7.4-10.4) fl Immature Gran % (Auto) (0-0.5) % Neut % (Auto) (45.5-73.1) % Lymph % (Auto) (18.3-44.2) % [place] % (Auto) (2.6-8.5) % Eos % (Auto) (0-4.4) % Baso % (Auto) (0.2-1.2) % Lymph # (Auto) (0.9-3.2) K/mm3 [place] # (Auto) (0.1-0.6) K/mm3 Eos # (Auto) (0-0.3) K/mm3 Baso # (Auto) (0.0-0.1) K/mm3 Abs Immat Gran (auto) (0.00-0.031) K/mm3 Absolute Neuts (auto) (1.3-6.7) K/mm3 Absolute Nucleated RBC (0.0-0.012) K/mm3 Nucleated RBC % (0.0-0.2) % PT (11.1-14.7) Seconds INR APTT (22.3-36.8) Seconds Sodium Potassium Chloride Carbon Dioxide Anion Gap BUN Creatinine Estim Creat Clear Calc Estimated GFR > 60 Glucose Cancelled 112 H Calcium Cancelled 9.5 Total Bilirubin Cancelled AST ALT Alkaline Phosphatase Troponin I (0.000-0.034) ng/mL NT-Pro-B Natriuret Pep (19.9-100) pg/mL Total Protein Albumin 05/02/25 05/02/25 05/02/25 Range/Units 07:40 07:40 07:40 WBC (4.5-10.0) K/mm3 RBC (4.6-6.20) M/mm3 Hgb (14.0-18.0) g/dL Hct (42.0-52.0) % MCV (80-100) fl MCH (26-34) pg MCHC (32-36) g/dl RDW (11.5-14.5) % Plt Count (150-375) k/mm3 MPV (7.4-10.4) fl Immature Gran % (Auto) (0-0.5) % Neut % (Auto) (45.5-73.1) % Lymph % (Auto) (18.3-44.2) % [place] % (Auto) (2.6-8.5) % Eos % (Auto) (0-4.4) % Baso % (Auto) (0.2-1.2) % Lymph # (Auto) (0.9-3.2) K/mm3 [place] # (Auto) (0.1-0.6) K/mm3 Eos # (Auto) (0-0.3) K/mm3 Baso # (Auto) (0.0-0.1) K/mm3 Abs Immat Gran (auto) (0.00-0.031) K/mm3 Absolute Neuts (auto) (1.3-6.7) K/mm3 Absolute Nucleated RBC (0.0-0.012) K/mm3 Nucleated RBC % (0.0-0.2) % PT (11.1-14.7) Seconds INR APTT (22.3-36.8) Seconds Sodium Potassium Chloride Carbon Dioxide Anion Gap BUN Creatinine Estim Creat Clear Calc Estimated GFR Glucose Calcium Total Bilirubin 1.4 H AST Cancelled 62 H ALT Cancelled 70 H Alkaline Phosphatase Cancelled Troponin I (0.000-0.034) ng/mL NT-Pro-B Natriuret Pep (19.9-100) pg/mL Total Protein Albumin 05/02/25 05/02/25 05/02/25 Range/Units 07:40 07:40 07:40 WBC (4.5-10.0) K/mm3 RBC (4.6-6.20) M/mm3 Hgb (14.0-18.0) g/dL Hct (42.0-52.0) % MCV (80-100) fl MCH (26-34) pg MCHC (32-36) g/dl RDW (11.5-14.5) % Plt Count (150-375) k/mm3 MPV (7.4-10.4) fl Immature Gran % (Auto) (0-0.5) % Neut % (Auto) (45.5-73.1) % Lymph % (Auto) (18.3-44.2) % [place] % (Auto) (2.6-8.5) % Eos % (Auto) (0-4.4) % Baso % (Auto) (0.2-1.2) % Lymph # (Auto) (0.9-3.2) K/mm3 [place] # (Auto) (0.1-0.6) K/mm3 Eos # (Auto) (0-0.3) K/mm3 Baso # (Auto) (0.0-0.1) K/mm3 Abs Immat Gran (auto) (0.00-0.031) K/mm3 Absolute Neuts (auto) (1.3-6.7) K/mm3 Absolute Nucleated RBC (0.0-0.012) K/mm3 Nucleated RBC % (0.0-0.2) % PT (11.1-14.7) Seconds INR APTT (22.3-36.8) Seconds Sodium Potassium Chloride Carbon Dioxide Anion Gap BUN Creatinine Estim Creat Clear Calc Estimated GFR Glucose Calcium Total Bilirubin AST ALT Alkaline Phosphatase 97 Troponin I < 0.012 (0.000-0.034) ng/mL NT-Pro-B Natriuret Pep 4230 H (19.9-100) pg/mL Total Protein Cancelled 8.0 Albumin Cancelled 4.2 Imaging Data Attestation: I personally reviewed and interpreted this imaging study as follows: Radiologist's impression: Impressions Chest X-Ray 05/02/25 08:39 IMPRESSION: 1. Mild bibasilar opacities and favor persistent atelectasis/scarring over pneumonia. ECG Data EKG #1: Attestation: I personally reviewed and interpreted this ECG as follows: ECG completion date: 05/02/25 Prior ECG tracings: not available for review Interpretation: Atrial fibrillation with RVR at 159 beats per minute, nonspecific ST T-wave abnormality, abnormal EKG, no previous EKG available for comparison Critical Care Time Critical Care Time Critical Care Time: No Discharge Plan Discharge Clinical Impression: Atrial fibrillation with rapid ventricular response Patient Disposition: Still a Patient Condition: Improved Additional Instructions: Admit to hospitalist Patient Language: Azeri Prescriptions: No Action prednisone 20 mg tablet 40 mg PO DAILY Qty: 10 0RF Humira 40 mg/0.8 mL syringe kit See Rx Instructions SUB-Q .COMPLEX Rx Instructions: inject one - 40 mg/0.8 mL syringe every 2 weeks subcut multivitamin Tablet 1 tablet PO DAILY Eliquis 2.5 mg tablet See Rx Instructions .ROUTE .COMPLEX Qty: 60 5RF Dose Instruction: TAKE 1 TABLET BY MOUTH TWICE DAILY Rx Instructions: TAKE 1 TABLET BY MOUTH TWICE DAILY metoprolol tartrate 50 mg tablet See Rx Instructions .ROUTE .COMPLEX Qty: 180 0RF Dose Instruction: TAKE 1 TABLET BY MOUTH TWICE DAILY Rx Instructions: TAKE 1 TABLET BY MOUTH TWICE DAILY diltiazem HCl 240 mg capsule,extended release 24hr See Rx Instructions .ROUTE .COMPLEX Qty: 90 2RF Dose Instruction: TAKE 1 CAPSULE BY MOUTH DAILY Rx Instructions: TAKE 1 CAPSULE BY MOUTH DAILY budesonide-formoterol [Symbicort] 160-4.5 mcg/actuation HFA aerosol inhaler See Rx Instructions .ROUTE .COMPLEX Qty: 10.2 2RF Dose Instruction: INHALE 2 PUFFS BY MOUTH EVERY 12 HOURS Rx Instructions: INHALE 2 PUFFS BY MOUTH EVERY 12 HOURS albuterol sulfate 90 mcg/actuation HFA aerosol inhaler See Rx Instructions .ROUTE .COMPLEX Qty: 8.5 0RF Dose Instruction: INHALE 1 PUFF BY MOUTH EVERY 4 HOURS NEEDED FOR SHORTNESS OF BREATH OR WHEEZING Rx Instructions: INHALE 1 PUFF BY MOUTH EVERY 4 HOURS NEEDED FOR SHORTNESS OF BREATH OR WHEEZING hydrocodone-acetaminophen 7.5-325 mg tablet 1 tablet PO Q6H PRN (Reason: pain) Qty: 110 0RF Follow-up/Referrals: Ulisses Downing MD [Primary Care Provider] -
[2025-05-02 07:49] LABS: Basophils Absolute Auto 0.1 K/mm3 (0.0-0.1); Basophils Percent Auto 0.4 % (0.2-1.2); Eosinophils Absolute Auto 0.3 K/mm3 (0-0.3); Eosinophils Percent Auto 2.1 % (0-4.4); Hemoglobin 16.9 g/dL (14.0-18.0); Immature Granulocyte Absolute 0.07 K/mm3 (0.00-0.031); Immature Granulocyte Percent A 0.4 % (0-0.5); Lymphocytes Absolute Auto 4.32 K/mm3 (0.9-3.2); Lymphocytes Percent Auto 27.6 % (18.3-44.2); Mean Corpuscular HGB Conc 33.8 g/dl (32-36); Mean Corpuscular Hemoglobin 31.3 pg (26-34); Mean Corpuscular Volume 92.6 fl (80-100); Mean Platelet Volume 11.1 fl (7.4-10.4); Monocytes Absolute Auto 1.7 K/mm3 (0.1-0.6); Monocytes Percent Auto 10.5 % (2.6-8.5); Neutrophils Absolute Auto 9.2 K/mm3 (1.3-6.7); Platelet Count Result 196 k/mm3 (150-375); Red Cell Distribution Width 14.1 % (11.5-14.5); White Blood Count 15.7 K/mm3 (4.5-10.0)
[2025-05-02] MEDS: dilTIAZem 100 MG/100 ML 100 MG/100 ML BAG IV CONT (07:51)
[2025-05-02] MEDS: dilTIAZem HCl INJ 25 MG/5 ML VIAL 10 MG IV PUSH (07:51)
--- OUTSIDE RECORDS SUMMARY | 2025-05-02 08:02 | XMS_ITS | Referral Summary ---
Author Organization [facility] [address] Address [address] [place] [address] Care Team Providers Care Magnetic Locater Name Role Phone Macho Velazco DO Primary Care Provider [phone] Mesfin Garza MD Unavailable [phone] Allergies No known active allergies Medications HYDROcodone-aceta [...] 12/26/2022 Assessment & Plan (12/26/2022 5:47 PM VACCINE SPECIALIST): 12/26/2022 A1c level 5.7 New diagnosis made Generalized weakness 12/25/2022 Sepsis 12/25/2022 Overview (12/25/2022): Assessment & Plan (12/26/2022 5:45 PM VACCINE SPECIALIST): Associated with pneumonia etiology WBC 30709, lactic acid 1.7, heart rate 140, respiratory rate 22 IV fluid Pending repeat lactate level Pending follow-up blood culture results IV antibiotics with ceftriaxone and azithromycin 12/26/2022 No growth to date on blood culture testing Urine streptococcal antigen negative Pending urine Legionella antigen Continue current antibiotic regimen Pneumonia 12/25/2022 Assessment & Plan (12/26/2022 5:46 PM VACCINE SPECIALIST): As seen on CT imaging IV antibiotics [...] cannula Assessment & Plan (12/26/2022 5:48 PM VACCINE SPECIALIST): IV Solu-Medrol DuoNebs O2 via nasal cannula [...] p.r.n. Assessment & Plan (12/25/2022 7:36 PM VACCINE SPECIALIST): Unclear etiology--possibly related to sepsis versus noncompliance to beta- ferny therapy Pending assessment a TSH and F T4 levels Echocardiogram IV metoprolol p.r.n. Pulmonary nodule 12/25/2022 Overview (12/25/2022): Long smoking history referred As seen on CT imaging Pulmonary consultation Assessment & Plan (12/26/2022 5:45 PM VACCINE SPECIALIST): Long smoking history referred As seen on CT imaging Pulmonary consultation 12/26/2022 Pulmonology evaluation obtained with recommendations for follow-up CT imaging and PFTs studies as outpatient (please see consultation note) Renal insufficiency 12/25/2022 Overview (12/25/2022): Limited lab data upon admission IV fluid Pending reassessment of BUN and creatinine levels with a.m. labs Assessment & Plan (12/26/2022 5:46 PM VACCINE SPECIALIST): Limited lab data upon admission IV fluid Pending reassessment of BUN and creatinine levels with a.m. labs 12/26/2022 Resolved Hypertension 12/25/2022 Overview (12/25/2022): Continue home regimen IV hydralazine p.r.n. Echocardiogram Assessment & Plan (12/25/2022 7:38 PM VACCINE SPECIALIST): Continue home regimen IV hydralazine p.r.n. Echocardiogram Elevated troponin 12/25/2022 Overview (12/25/2022): No active chest pain at time of evaluation Likely secondary to cardiac strain Echocardiogram Serial cardiac enzymes Cardiology consultation Assessment & Plan (12/25/2022 7:39 PM VACCINE SPECIALIST): No active chest pain at time of [...] on file Legal Sex Male 3:34 AM VACCINE SPECIALIST Gender Identity Not on file Sexual Orientation Not on file Last Filed Vital Signs Vital Sign Reading Time Taken Comments Blood Pressure 121/85 12/31/2022 11:22 AM VACCINE SPECIALIST Pulse 84 12/31/2022 11:22 AM VACCINE SPECIALIST Temperature 36.5 C (97.7 F) 12/31/2022 11:22 AM VACCINE SPECIALIST Respiratory Rate 18 12/31/2022 11:22 AM VACCINE SPECIALIST Oxygen Saturation 93% 12/31/2022 2:31 PM VACCINE SPECIALIST Inhaled Oxygen Concentration - - Weight 85.1 kg (187 lb 9.4 oz) 12/25/2022 7:45 P M VACCINE SPECIALIST Height 172.7 cm (5' 7.99) 12/25/2022 7:45 PM CS T Body Mass Index 28.53 12/25/2022 7:45 PM VACCINE SPECIALIST Plan of Treatment Not on file Insurance [facility] HMO REF [facility] REF Member Subscriber Plan / Payer (Ef fective 2018-Present) Name:Dickson Sorensen Relation to Subscriber:Self Name:Dickson Sorensen Payer ID:[id number] (NAIC) Type:[facility] MEDICARE Address: [place] [phone] [id number] H[address] REF Member Subscriber Plan / Payer (Ef fective 2022-Present) Name:Dickson Sorensen Relation to Subscriber:Self Name:Dickson Sorensen Payer ID:[id number] (NAIC) Type:[facility] MEDICARE Address: [place] [phone] Advance Directives For more information, please contact: [phone] * Full Code (Latest Code Status on File) Date Activated Date Inactivated Comments 12/25/2022 7:24 PM 12/31/2022 7:32 PM Care Teams Magnetic Locater Relationship Specialty Start Date End Date Macho Velazco DO PCP - General 05/25/19 Mesfin Garza MD 05/25/19
--- OUTSIDE RECORDS SUMMARY | 2025-05-02 08:02 | XMS_ITS | Clinical Summary ---
Author Organization [facility] [address] [facility] [address] [place] [address] Care Team Providers Care Ski Instructor Name Role Phone Macho Velazco DO Primary Care Provider [phone] Mesfin Garza MD Unavailable [phone] Allergies No known active allergies Medications HYDROcodone-aceta [...] 12/26/2022 Assessment & Plan (12/26/2022 5:47 PM ACID MIXER): 12/26/2022 A1c level 5.7 New diagnosis made Generalized weakness 12/25/2022 Sepsis 12/25/2022 Overview (12/25/2022): Assessment & Plan (12/26/2022 5:45 PM ACID MIXER): Associated with pneumonia etiology WBC 59240, lactic acid 1.7, heart rate 140, respiratory rate 22 IV fluid Pending repeat lactate level Pending follow-up blood culture results IV antibiotics with ceftriaxone and azithromycin 12/26/2022 No growth to date on blood culture testing Urine streptococcal antigen negative Pending urine Legionella antigen Continue current antibiotic regimen Pneumonia 12/25/2022 Assessment & Plan (12/26/2022 5:46 PM ACID MIXER): As seen on CT imaging IV antibiotics [...] cannula Assessment & Plan (12/26/2022 5:48 PM ACID MIXER): IV Solu-Medrol DuoNebs O2 via nasal cannula [...] p.r.n. Assessment & Plan (12/25/2022 7:36 PM ACID MIXER): Unclear etiology--possibly related to sepsis versus noncompliance to beta- ferny therapy Pending assessment a TSH and F T4 levels Echocardiogram IV metoprolol p.r.n. Pulmonary nodule 12/25/2022 Overview (12/25/2022): Long smoking history referred As seen on CT imaging Pulmonary consultation Assessment & Plan (12/26/2022 5:45 PM ACID MIXER): Long smoking history referred As seen on CT imaging Pulmonary consultation 12/26/2022 Pulmonology evaluation obtained with recommendations for follow-up CT imaging and PFTs studies as outpatient (please see consultation note) Renal insufficiency 12/25/2022 Overview (12/25/2022): Limited lab data upon admission IV fluid Pending reassessment of BUN and creatinine levels with a.m. labs Assessment & Plan (12/26/2022 5:46 PM ACID MIXER): Limited lab data upon admission IV fluid Pending reassessment of BUN and creatinine levels with a.m. labs 12/26/2022 Resolved Hypertension 12/25/2022 Overview (12/25/2022): Continue home regimen IV hydralazine p.r.n. Echocardiogram Assessment & Plan (12/25/2022 7:38 PM ACID MIXER): Continue home regimen IV hydralazine p.r.n. Echocardiogram Elevated troponin 12/25/2022 Overview (12/25/2022): No active chest pain at time of evaluation Likely secondary to cardiac strain Echocardiogram Serial cardiac enzymes Cardiology consultation Assessment & Plan (12/25/2022 7:39 PM ACID MIXER): No active chest pain at time of [...] on file Legal Sex Male 3:34 AM ACID MIXER Gender Identity Not on file Sexual Orientation Not on file Obstetrics History Last Filed Vital Signs Vital Sign Reading Time Taken Comments Blood Pressure 121/85 12/31/2022 11:22 AM ACID MIXER Pulse 84 12/31/2022 11:22 AM ACID MIXER Temperature 36.5 C (97.7 F) 12/31/2022 11:22 AM ACID MIXER Respiratory Rate 18 12/31/2022 11:22 AM ACID MIXER Oxygen Saturation 93% 12/31/2022 2:31 PM ACID MIXER Inhaled Oxygen Concentration - - Weight 85.1 kg (187 lb 9.4 oz) 12/25/2022 7:45 P M ACID MIXER Height 172.7 cm (5' 7.99) 12/25/2022 7:45 PM CS T Body Mass Index 28.53 12/25/2022 7:45 PM ACID MIXER Plan of Treatment Health Maintenance Due Date [...] Completed 10/19/2018, 09/01 Insurance R HMO REF R HMO REF R HMO REF Advance Directives For more information, please contact: [phone] * Full Code (Latest Code Status on File) Date Activated Date Inactivated Comments 12/25/2022 7:24 PM 12/31/2022 7:32 PM Care Teams Ski Instructor Relationship Specialty Start Date End Date Macho Velazco DO PCP - General 05/25/19 Mesfin Garza MD 05/25/19
[2025-05-02 08:10] LABS: Alanine Aminotransferase 70 U/L (6-50); Albumin Level 4.2 g/dL (3.5-5.1); Alkaline Phosphatase 97 U/L (38-126); Anion Gap 12 mmol/L (4-12); Aspartate Amino Transferase 62 U/L (17-59); Bilirubin,Total 1.4 mg/dL (0.2-1.3); Blood Urea Nitrogen 29 mg/dL (9-20); Calcium 9.5 mg/dL (8.4-10.2); Carbon Dioxide 23 mmol/L (22-30); Chloride 101 mmol/L (98-107); Estimated Glomerular Filt Rate > 60; Glucose 112 mg/dL (65-110); Potassium 4.4 mmol/L (3.4-5.0); Sodium 136 mmol/L (137-145)
[2025-05-02 08:20] LABS: INR 1.4; Partial Thromboplastin Time 33.1 Seconds (22.3-36.8); Prothrombin Time 16.6 Seconds (11.1-14.7)
[2025-05-02 08:22] LABS: NT Pro B Type Natriuretic Pept 4230 pg/mL (19.9-100); Troponin I < 0.012 ng/mL (0.000-0.034)
--- NOTE | 2025-05-02 10:48 | P.HP_ITS ---
H&P: HPI History of Present Illness Date/Time: 05/02/25 10:48 Chief Complaint: SOB and cough Narrative: 79 yo male with PMH of Afib, HTN, Hep C who presented to the ER wtih worsening SOB and cough. Noted symptoms have been going on for about 1 week, denies any chest pain, palpitations, vomting abd pain and diarrhea. For worsening symptoms he presented to [facility] ER ER eval notable for AK 152, EKG showed Afib with RVR. Labs notabel for WBC 15.7, CXR showed nild bibasilar opacities atelectasis vs pneumonia Started on Cardizem infusion prior to admit Review of Systems Review of Systems: All other systems were reviewed and negative except as noted in the HPI above [facility] Past Medical History Medical History Prediabetes Atrial fibrillation COPD (chronic obstructive pulmonary disease) Lung nodules Umbilical hernia Brain aneurysm Enlarged prostate with lower urinary tract symptoms (LUTS) Essential (primary) hypertension Obstructive sleep apnea (adult) (pediatric) Other psoriatic arthropathy Polyosteoarthritis, unspecified Psoriasis vulgaris Vitamin D deficiency Surgical History Surgical History H/O arthroscopic knee surgery Family History Family History Father Family history of diabetes mellitus in first degree relative, Onset Age: 62 Patient's father is Diabetes mellitus Mother Family history of heart disease in male family member before age 55, Onset Age: 81 Patient's mother is Family history of cardiovascular disease Social History Social History Smoking packs per day: 1.5 Smoking cigarettes per day: 30.0 Years smoked: 40 Smoking pack-years: 60.00 Smoking status: Former smoker Tobacco type: cigarettes Second hand tobacco smoke exposure: No Smoking end date: 12/02/16 Alcohol intake: current Substance use: current Substance use type: marijuana Other substance usage details: COUPLE TIMES A WEEK Do You Feel Safe in your Home?: Yes Lack of Transportation: No Lack of Food: Never True Current Housing: Decline to Answer Concerned About Future Housing: No Difficulty Paying Gas/Electric Bills: Decline to Answer Difficulty Paying for Meds: No Currently Unemployed: No Education: High School Diploma/GED Difficulty w/ Childcare or Family Care: No Living arrangements: with family Spiritual care concerns: No Meds Home Medications and Allergies Home Medications ?Medication ?Instructions ?Recorded ?Confirmed ?Type adalimumab 40 mg/0.8 mL See Rx Instructions subcut .COMPLEX 01/13/20 12/31/23 History subcutaneous syringe kit (Humira) multivitamin 1 tablet PO DAILY 01/09/23 12/31/23 History prednisone 20 mg tablet 40 mg (2 x 20 mg) PO DAILY #10 tabs 07/01/24 07/01/24 Rx apixaban 2.5 mg tablet (Eliquis) See Rx Instructions .Route 09/30/24 Rx .COMPLEX #60 tabs metoprolol tartrate 50 mg tablet See Rx Instructions .Route 12/08/24 Rx .COMPLEX #180 tabs diltiazem HCl 240 mg See Rx Instructions .Route 12/28/24 Rx capsule,extended release 24 hr .COMPLEX #90 caps Symbicort 160 mcg-4.5 See Rx Instructions .Route 02/03/25 Rx mcg/actuation HFA aerosol inhaler .COMPLEX #10.2 grams (budesonide-formoterol) albuterol sulfate 90 mcg/actuation See Rx Instructions .Route 03/01/25 Rx aerosol inhaler .COMPLEX #8.5 grams hydrocodone 7.5 mg-acetaminophen 1 tablet PO Q6H PRN pain #110 tabs 04/09/25 Rx 325 mg tablet Allergies Allergy/AdvReac Type Severity Reaction Status Date / Time No Known Allergies Allergy Unknown Verified 07/01/24 10:25 Vital Signs Vital Signs - 24 hr 05/02/25 07:39 05/02/25 07:44 05/02/25 07:51 Temperature Pulse Rate 152 H 155 H Respiratory Rate Blood Pressure 160/94 H Pulse Oximetry 94 Oxygen Delivery Room Air 05/02/25 08:07 05/02/25 09:00 Temperature 98.1 F Pulse Rate 134 H 109 H Respiratory Rate 15 20 Blood Pressure 146/90 H 134/90 Pulse Oximetry 96 92 Oxygen Delivery Exam Narrative: General: alert and comfortable Eyes: EOMI, PERRLA ENNT External ears normal, Neck is supple, no masses, Respiratory systems: Clear to auscultation Cardiovascular S1, S2, normal rhythm, no murmur, rub, or gallop; no thrill or palpable murmurs on palpation. Gastrointestinal: soft, non-tender, and non-distended abdomen with no masses; BS present Skin: no rash, lesions, ulcerations, subcutaneous nodules or induration Musculoskeletal: no abnormality and no tenderness, normal ROM Neurologic: Alert and oriented x3, non focal Mental Status Exam: normal affect H&P: Results Labs Labs: Short CBC 05/02/25 Range/Units 07:40 WBC 15.7 H (4.5-10.0) K/mm3 Hgb 16.9 (14.0-18.0) g/dL Hct 50.0 (42.0-52.0) % Plt Count 196 (150-375) k/mm3 BMP 05/02/25 05/02/25 05/02/25 07:40 07:40 07:40 Sodium Cancelled 136 L Potassium Cancelled 4.4 Chloride Cancelled Carbon Dioxide BUN Creatinine Glucose Calcium 05/02/25 05/02/25 05/02/25 07:40 07:40 07:40 Sodium Potassium Chloride 101 Carbon Dioxide Cancelled 23 BUN Cancelled 29 H Creatinine Cancelled Glucose Calcium 05/02/25 05/02/25 05/02/25 07:40 07:40 07:40 Sodium Potassium Chloride Carbon Dioxide BUN Creatinine 1.02 Glucose Cancelled 112 H Calcium Cancelled 9.5 Cardiac Enzymes 05/02/25 Range/Units 07:40 Troponin I < 0.012 (0.000-0.034) ng/mL Liver Function 05/02/25 05/02/25 05/02/25 Range/Units 07:40 07:40 07:40 Total Bilirubin Cancelled 1.4 H AST Cancelled 62 H ALT Cancelled Alkaline Phosphatase Albumin 05/02/25 05/02/25 05/02/25 Range/Units 07:40 07:40 07:40 Total Bilirubin AST ALT 70 H Alkaline Phosphatase Cancelled 97 Albumin Cancelled 4.2 Assessment and Plan Assessment and plan (1) Atrial fibrillation with rapid ventricular response: Code(s): I48.91 - Unspecified atrial fibrillation Status: Acute Plan Afib RVR Patient has a history of Afib TSH pending continue cardizem infusion restart home Cardizem and Metoprolol once confirmed Eliquis monitor Possible Pneumonia CXR reviewed CT chest pending MRSA and blood culture ordered Continue Rocephin and Doxycycline monitor Hypertension Titrate home meds with clinical course DVT prophylaxis on Eliquis Full code SDM Sister Tali Sorensen
[2025-05-02] MEDS: cefTRIAXone 2 GM/NS 100 ML 2 GM/100 ML BAG IVPB (11:14)
[2025-05-02 11:52] LABS: Troponin I < 0.012 ng/mL (0.000-0.034)
--- NOTE | 2025-05-02 13:44 | ADMGEN ---
This patient, Dickson Sorensen, was admitted to IMU Room 200-01 at 1135. Patient/family oriented to hospital policies and general routines including ID bracelet, bed and alarms, visiting hours, pain management, procedures, bathroom and other care routines, personal items, smoking policy, room service/diet, and visiting hours. Information on how to activate the Rapid Response Team has been discussed. Patient/Family are encouraged to report perceived risks to care and to ask questions if they do not understand what they are told or what they should do.
[2025-05-02] MEDS: dilTIAZem 100 MG/100 ML 100 MG/100 ML BAG 10 MG IV CONT (13:55)
[2025-05-02] MEDS: DOXYCYCLINE 100 MG/NS 100 ML 100 MG/100 ML BAG IVPB ×2 (14:10→20:07)
[2025-05-02 14:57] LABS: Troponin I < 0.012 ng/mL (0.000-0.034)
[2025-05-02] MEDS: dilTIAZem HCL CD 240 MG CAP.24HR BY MOUTH (17:17)
[2025-05-02] MEDS: METOPROLOL TARTRATE 50 MG TAB BY MOUTH (20:08)
[2025-05-02] MEDS: APIXABAN 2.5 MG TABLET PO (20:08)
[2025-05-02] MEDS: FLUTICASONE/SALMETEROL 115-21 MCG INHALER 1 PUFF 2 PUFF INHALATION (21:12)
[2025-05-02 23:15] LABS: MRSA (PCR) NOT DETECTED (NOT DETECTE)
[2025-05-03] VITALS (24 sets, daily range): BP systolic 128–147; BP diastolic 72–93; PULSE 76–118; RESP 16–22; TEMP 36.4–37.2; O2SAT 92–94
--- NOTE | 2025-05-03 | ECHO_ITS ---
Patient Info Name: Dickson Sorensen Age: 79 years : 1945 Gender: Male Ht: 68 in Wt: 171 lbs BSA: 1.94 m2 HR: 85 bpm BP: 131 / 72 mmHg Heart Rhythm: Atrial Fibrillation Technical Quality: Fair Exam Date: 05/03/2025 4:39 PM Patient Status: I Admit Date: 05/03/2025 Exam Type: CA echo doppler color flow Complete two-dimensional, color flow and Doppler transthoracic echocardiogram is performed. Staff Referring Physician: Hailey Cardenas Cert Occupational Therapy Asst: Joanna Santos Attending Provider: Hailey Cardenas Summary 1. Complete two-dimensional, color flow and Doppler transthoracic echocardiogram is performed. 2. Left ventricular chamber dimension is normal. 3. Left ventricular systolic function is normal, estimated at 55-60. 4. The left ventricular diastolic function is indeterminate. 5. Ventricular septum is sigmoid shaped. No resting LVOT obstruction. 6. Atrial fibrillation. 7. Left atrial chamber dimension is moderately enlarged. 8. There is mild aortic valve regurgitation. 9. There is trace mitral valve regurgitation. 10. There is trace tricuspid valve regurgitation. 11. No pulmonary hypertension, estimated pulmonary arterial systolic pressure is 30 mmHg. 12. The aortic root size at the sinus of Valsalva is borderline dilated at 4.0 cm. 13. The prox ascending aorta size is mildly dilated at 4.3 cm. Left Ventricle Atrial fibrillation. Left ventricular chamber dimension is normal. Left ventricular systolic function is normal, estimated at 55-60. The left ventricular diastolic function is indeterminate. Ventricular septum is sigmoid shaped. No resting LVOT obstruction. Right Ventricle Right ventricular chamber dimension is normal. Right ventricular systolic function is normal and with normal TAPSE 2.0 cm. Left Atria Left atrial chamber dimension is moderately enlarged. Right Atria Right atrial chamber dimension is normal. Aortic Valve The aortic valve is trileaflet. There is no aortic valve stenosis. There is mild aortic valve regurgitation. Pulmonic Valve There is no pulmonic regurgitation. Mitral Valve There is no mitral valve stenosis. There is trace mitral valve regurgitation. Tricuspid Valve There is trace tricuspid valve regurgitation. No pulmonary hypertension, estimated pulmonary arterial systolic pressure is 30 mmHg. Pericardium/Pleural There is no pericardial effusion. Inferior Vena Cava Normal inferior vena cava with >50% collapse upon inspiration consistent with normal right atrial pressure, 5 mmHg. Aorta The aortic root size at the sinus of Valsalva is borderline dilated at 4.0 cm. The prox ascending aorta size is mildly dilated at 4.3 cm. Left Ventricular Outflow Tract Name Value Normal LVOT 2D LVOT Diameter 2.4 cm LVOT Doppler LVOT Peak Velocity 69 cm/s LVOT Peak Gradient 2 mmHg LVOT Mean Gradient 1 mmHg LVOT VTI 13 cm LVOT VTI/AV VTI Ratio 0.9 LVOT Stroke Volume 57 ml LVOT CO 2.5 l/min LVOT CI 1.3 l/min/m2 Tricuspid Valve Name Value Normal TV Regurgitation Doppler TR Peak Velocity 250 cm/s TR Peak Gradient 25 mmHg Estimated PAP/RSVP RA Pressure 5 mmHg <=5 PA Systolic Pressure 30 mmHg <36 RV Systolic Pressure 30 mmHg <36 TV Annular TDI TV Lateral Pia s' Velocity 10.1 cm/s >=9.5 Aortic Valve Name Value Normal AV Doppler AV Peak Velocity 92 cm/s AV Peak Gradient 3 mmHg AV Mean Gradient 2 mmHg AV VTI 14 cm AV Area (Cont Eq VTI) 4.1 cm2 >=3.0 AV Area (Cont Eq Jr) 3.3 cm2 AV DI (Jr) 0.75 AV Regurgitation 2D LVOT Area 4.4 cm2 Ventricles Name Value Normal LV Dimensions 2D/MM IVS Diastolic Thickness (2D) 0.9 cm 0.6-1.0 LVID Diastole (2D) 3.9 cm 4.2-5.8 LVIW Diastolic Thickness (2D) 0.9 cm 0.6-1.0 LVID Systole (2D) 3.0 cm 2.5-4.0 LVOT Diameter 2.4 cm LV Mass (2D Cubed) 109.63 g 88.00-224.00 LV Mass Index (2D Cubed) 56 g/m2 49-115 Relative Wall Thickness (2D) 0.48 <=0.42 LV Fractional Shortening/Ejection Fraction 2D/MM LV Fractional Shortening (2D) 25 % 25-43 LV EF (2D Teichholz) 50 % LV Diastolic Volume (4C MOD) 84 ml LV EF (4C MOD) 57 % LV Diastolic Volume (2C MOD) 65 ml LV EF (2C MOD) 50 % LV Diastolic Volume (BP MOD) 75 ml 62-150 LV Diastolic Volume Index (BP MOD) 39 ml/m2 34-74 LV Systolic Volume (BP MOD) 36 ml 21-61 LV Systolic Volume Index (BP MOD) 18 ml/m2 11-31 LV EF (BP MOD) 53 % 52-72 LV Diastolic Length (4C) 8.5 cm LV Systolic Length (4C) 7.5 cm LV Stroke Volume (4C MOD) 47 ml Atria Name Value Normal LA Dimensions LA Volume (4C A-L) 49 ml RA Dimensions RA Area (4C) 16.3 cm2 <=18.0 Report Signatures
--- NOTE | 2025-05-03 04:45 | PC.NURSE ---
Have checked Pia's assessment and charting of her pt. and I agree with her assessment and charting of her pt.
[2025-05-03 04:47] LABS: Basophils Absolute Auto 0.1 K/mm3 (0.0-0.1); Basophils Percent Auto 0.4 % (0.2-1.2); Eosinophils Absolute Auto 0.2 K/mm3 (0-0.3); Hematocrit 44.5 % (42.0-52.0); Hemoglobin 15.1 g/dL (14.0-18.0); Immature Granulocyte Absolute 0.08 K/mm3 (0.00-0.031); Immature Granulocyte Percent A 0.5 % (0-0.5); Lymphocytes Absolute Auto 3.11 K/mm3 (0.9-3.2); Lymphocytes Percent Auto 18.1 % (18.3-44.2); Mean Corpuscular HGB Conc 33.9 g/dl (32-36); Mean Corpuscular Hemoglobin 31.5 pg (26-34); Mean Corpuscular Volume 92.9 fl (80-100); Mean Platelet Volume 11.9 fl (7.4-10.4); Monocytes Percent Auto 11.8 % (2.6-8.5); Neutrophils Absolute Auto 11.7 K/mm3 (1.3-6.7); Neutrophils Percent Auto 68.2 % (45.5-73.1); Platelet Count Result 188 k/mm3 (150-375); Red Blood Count 4.79 M/mm3 (4.6-6.20); White Blood Count 17.2 K/mm3 (4.5-10.0)
[2025-05-03 05:00] LABS: Alanine Aminotransferase 51 U/L (6-50); Albumin Level 3.7 g/dL (3.5-5.1); Alkaline Phosphatase 78 U/L (38-126); Anion Gap 9 mmol/L (4-12); Aspartate Amino Transferase 45 U/L (17-59); Bilirubin,Total 1.2 mg/dL (0.2-1.3); Blood Urea Nitrogen 24 mg/dL (9-20); Calcium 9.1 mg/dL (8.4-10.2); Carbon Dioxide 23 mmol/L (22-30); Chloride 101 mmol/L (98-107); Estimated CRCL calculation 57 ml/min; Estimated Glomerular Filt Rate > 60; Glucose 109 mg/dL (65-110); Magnesium 1.6 mg/dL (1.6-2.3); Sodium 133 mmol/L (137-145)
[2025-05-03 05:28] LABS: Thyroid Stimulating Hormone 0.843 uIU/mL (0.465-4.680)
[2025-05-03] MEDS: FLUTICASONE/SALMETEROL 115-21 MCG INHALER 1 PUFF 2 PUFF INHALATION (07:56)
[2025-05-03] MEDS: cefTRIAXone 2 GM/NS 100 ML 2 GM/100 ML BAG IVPB (08:10)
[2025-05-03] MEDS: OMEGA 3 POLYUNSAT FATTY ACIDS 1 GM CAP PO (08:11)
[2025-05-03] MEDS: MAGNESIUM 27 MG TABLET (500 MG MAG GLUCONATE) PO (08:11)
[2025-05-03] MEDS: ASPIRIN 81 MG ENTERIC TABLET PO (08:11)
[2025-05-03] MEDS: APIXABAN 2.5 MG TABLET PO ×2 (08:12→20:15)
[2025-05-03] MEDS: dilTIAZem HCL CD 240 MG CAP.24HR BY MOUTH (08:12)
[2025-05-03] MEDS: METOPROLOL TARTRATE 50 MG TAB BY MOUTH ×2 (08:12→20:14)
[2025-05-03] MEDS: DOXYCYCLINE 100 MG/NS 100 ML 100 MG/100 ML BAG IVPB ×2 (08:49→20:16)
[2025-05-03] MEDS: metroNIDAZOLE 500 MG/ISO 100ML 500 MG/100 ML BAG 100 MG IVPB (12:10)
--- NOTE | 2025-05-03 15:17 | P.PNIM_ITS ---
Progress Note: A&P Assessment and Plan (1) Atrial fibrillation with rapid ventricular response: Code(s): I48.91 - Unspecified atrial fibrillation Status: Acute Plan Afib RVR, rate controlled Patient has a history of Afib TSH WNL, ECHO currently on home Cardizem and Metoprolol Titrate off Cardizem infusion On Eliquis monitor Pneumonia CT Chest showed mucus plug with posterior basilar right lower lobe MRSA negative Blood culture ordered On Rocephin, Flagyl and Doxycycline Pulmonology consulted monitor Acute hypoxemic respiratory failure on 2 liters oxygen titrate oxygen Hypertension Titrate home meds with clinical course DVT prophylaxis on Eliquis Full code Subjective Date/time seen: 05/03/25 15:17 Interval history: Comfortable at bedside CT Chest showed mucus plug with posterior basilar right lower lobe Flagyl added Review of Systems Review of Systems: All other systems were reviewed and negative except as noted in the HPI above Exam Narrative: General: alert and comfortable Eyes: EOMI, PERRLA ENNT External ears normal, Neck is supple, no masses, Respiratory systems: Clear to auscultation Cardiovascular S1, S2, normal rhythm, no murmur, rub, or gallop; no thrill or palpable murmurs on palpation. Gastrointestinal: soft, non-tender, and non-distended abdomen with no masses; BS present Skin: no rash, lesions, ulcerations, subcutaneous nodules or induration Musculoskeletal: no abnormality and no tenderness, normal ROM Neurologic: Alert and oriented x3, non focal Mental Status Exam: normal affect Objective Data Vital Signs Vital Signs: Vital Signs - 24 hr 05/02/25 16:00 05/02/25 16:00 05/02/25 16:00 Temperature Pulse Rate 121 H 124 H Respiratory Rate Blood Pressure 148/105 H Pulse Oximetry Oxygen Delivery Room Air Oxygen Flow Rate 05/02/25 16:27 05/02/25 17:35 05/02/25 18:00 Temperature 98.7 F Pulse Rate 123 H 135 H 112 H Respiratory Rate 21 H Blood Pressure 155/103 H Pulse Oximetry 94 Oxygen Delivery Oxygen Flow Rate 05/02/25 18:00 05/02/25 18:43 05/02/25 20:00 Temperature 98.5 F Pulse Rate 123 H 116 H 98 Respiratory Rate 20 22 H Blood Pressure 155/103 H 154/83 H Pulse Oximetry 92 92 Oxygen Delivery Nasal Cannula Oxygen Flow Rate 2 05/02/25 20:00 05/02/25 20:00 05/02/25 20:08 Temperature Pulse Rate 114 H 136 H 136 H Respiratory Rate Blood Pressure 154/83 H Pulse Oximetry Oxygen Delivery Oxygen Flow Rate 05/02/25 21:12 05/02/25 21:12 05/02/25 22:00 Temperature Pulse Rate 75 75 82 Respiratory Rate 16 Blood Pressure Pulse Oximetry 90 Oxygen Delivery Nasal Cannula Oxygen Flow Rate 2 05/02/25 23:18 05/02/25 23:22 05/03/25 00:00 Temperature 98.6 F Pulse Rate 84 94 99 Respiratory Rate 16 20 Blood Pressure 135/80 Pulse Oximetry 93 93 Oxygen Delivery Nasal Cannula Oxygen Flow Rate 2 05/03/25 02:00 05/03/25 04:00 05/03/25 04:00 Temperature 98.5 F Pulse Rate 114 H 117 H 113 H Respiratory Rate 20 16 Blood Pressure 135/88 Pulse Oximetry 94 94 Oxygen Delivery Nasal Cannula Oxygen Flow Rate 2 05/03/25 04:00 05/03/25 06:00 05/03/25 07:50 Temperature 97.8 F Pulse Rate 110 H 104 H 114 H Respiratory Rate 22 H Blood Pressure 147/93 H Pulse Oximetry 94 Oxygen Delivery Oxygen Flow Rate 05/03/25 07:59 05/03/25 07:59 05/03/25 08:00 Temperature Pulse Rate 107 H 102 H Respiratory Rate 20 20 Blood Pressure Pulse Oximetry 93 94 Oxygen Delivery Nasal Cannula Nasal Cannula Oxygen Flow Rate 3 2 05/03/25 08:00 05/03/25 08:12 05/03/25 10:00 Temperature Pulse Rate 102 H 106 H 76 Respiratory Rate Blood Pressure Pulse Oximetry Oxygen Delivery Oxygen Flow Rate 05/03/25 12:00 05/03/25 12:00 05/03/25 12:14 Temperature 97.6 F Pulse Rate 87 87 78 Respiratory Rate 20 22 H Blood Pressure 131/72 Pulse Oximetry 94 92 Oxygen Delivery Nasal Cannula Oxygen Flow Rate 2 05/03/25 14:00 Temperature Pulse Rate 85 Respiratory Rate Blood Pressure Pulse Oximetry Oxygen Delivery Oxygen Flow Rate Intake/Output Intake/Output: Intake & Output 04/30/25 05/01/25 05/02/25 05/03/25 23:59 23:59 23:59 23:59 Intake Total 1040.8 1170 Output Total 701 Balance 1040.8 469 Meds/Results Medications: Active Medications Generic Name Dose Route Start Last Admin Trade Name Freq PRN Reason Stop Dose Admin Acetaminophen 650 mg 05/02/25 09:57 Acetaminophen 325 Mg Tablet PO Q4H PRN Mild Pain (1-3) or Fever Apixaban 2.5 mg 05/02/25 21:00 05/03/25 08:12 Apixaban 2.5 Mg Tablet PO 2.5 mg Q12HR BERNARDA Administration Aspirin 81 mg 05/03/25 09:00 05/03/25 08:11 Aspirin 81 Mg Enteric Tablet PO 81 mg QAM BERNARDA Administration Diltiazem HCl 240 mg 05/02/25 16:00 05/03/25 08:12 Diltiazem Hcl Cd 240 Mg Cap.24hr BY MOUTH 240 mg DAILY BERNARDA Administration Fish Oil 1 gm 05/03/25 09:00 05/03/25 08:11 [place] 3 Polyunsat Fatty Acids 1 Gm Cap PO 1 gm DAILY BERNARDA Administration Doxycycline Hyclate 100 mg in 100 mls @ 100 mls/hr 05/02/25 21:00 05/03/25 09:49 Vibramycin 100 Mg/Ns 100 Ml IVPB Infused Q12H BERNARDA Infusion Ceftriaxone Sodium 2 gm in 100 mls @ 200 mls/hr 05/03/25 09:00 05/03/25 08:50 Rocephin 2 Gm/Ns 100 Ml IVPB Infused Q24H BERNARDA Infusion Metronidazole 500 mg in 100 mls @ 100 mls/hr 05/03/25 21:30 Flagyl 500 Mg/Iso Soln 100 Ml IVPB Q8HR BERNARDA Magnesium Gluconate 27 mg 05/03/25 09:00 05/03/25 08:11 Magnesium 27 Mg Tablet (500 Mg Mag Gluconate) PO 27 mg DAILY BERNARDA Administration Metoprolol Tartrate 50 mg 05/02/25 21:00 05/03/25 08:12 Metoprolol Tartrate 50 Mg Tab BY MOUTH 50 mg Q12HR BERNARDA Administration Fluticasone/Salmeterol 2 puff 05/02/25 20:00 05/03/25 07:56 Fluticasone/Salmeterol 115-21 Mcg Inhaler 1 Puff INHALATION 2 puff Q12HRT BERNARDA Administration Radiology Results: ITS Impressions Chest X-Ray 05/02/25 08:39 IMPRESSION: 1. Mild bibasilar opacities and favor persistent atelectasis/scarring over pneumonia. Chest CT 05/02/25 11:03 IMPRESSION: 1. Bronchitis and mucous plugging in the right middle and lower lobes with more focal small region of pneumonia at the posterior basilar right lower lobe. Labs Labs: Laboratory Results - last 24 hr 05/02/25 05/03/25 21:28 03:52 WBC 17.2 H RBC 4.79 Hgb 15.1 Hct 44.5 MCV 92.9 MCH 31.5 MCHC 33.9 RDW 14.0 Plt Count 188 MPV 11.9 H Immature Gran % (Auto) 0.5 Neut % (Auto) 68.2 Lymph % (Auto) 18.1 L [place] % (Auto) 11.8 H Eos % (Auto) 1.0 Baso % (Auto) 0.4 Lymph # (Auto) 3.11 [place] # (Auto) 2.0 H Eos # (Auto) 0.2 Baso # (Auto) 0.1 Abs Immat Gran (auto) 0.08 H Absolute Neuts (auto) 11.7 H Absolute Nucleated RBC 0.000 Nucleated RBC % 0.0 Sodium 133 L Potassium 4.0 Chloride 101 Carbon Dioxide 23 Anion Gap 9 BUN 24 H Creatinine 0.90 Estim Creat Clear Calc 57 Estimated GFR > 60 Glucose 109 Calcium 9.1 Magnesium 1.6 Total Bilirubin 1.2 AST 45 ALT 51 H Alkaline Phosphatase 78 Total Protein 7.0 Albumin 3.7 TSH 0.843 Nasal MRSA (PCR) Not detected
--- NOTE | 2025-05-03 15:31 | P.CONPL_ITS ---
Assessment and Plan Assessment and plan (1) Pneumonia: Code(s): J18.9 - Pneumonia, unspecified organism Status: Acute Assessment and Plan: Patient carries a diagnosis of COPD, psoriatic arthritis on Humira since 2017 and presents with 14 days of cough and phlegm and 10 days of shortness of breath with a leukocytosis, new oxygen requirements and a CT scan with right lower lobe pneumonia. There is mucus in the airway but no pedro mucus plugging as there is no lobar collapse or segmental consolidation. Plan: Agree with continuation of ceftriaxone and doxycycline, both day 2. Patient does have a hard time coughing up his phlegm and I will add guaifenesin 1200 mg p.o. b.i.d., a Cornet flutter valve. I will send a sputum for bacterial culture, urine for Legionella, urine for pneumococcal, serum IgM and a respiratory pathogen panel looking for etiology of his pneumonia. No history of aspiration, loss of consciousness or seizures and I will discontinue Flagyl. (2) COPD (chronic obstructive pulmonary disease): Code(s): J44.9 - Chronic obstructive pulmonary disease, unspecified Status: Acute Assessment and Plan: Patient with a 54 pack year tobacco use, quit 2013. He has daily marijuana use at 12-15 inhalations a day for the last 20 years. 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 I have no PFTs. There is no apical predominant centrilobular emphysema on his CT scan. He presented with an eosinophil count of 329 per micro L. he has no wheezing. Plan: I do not believe patient is having a COPD exacerbation. There is no need for inhaled or systemic steroids at this point. Patient was maintained on Symbicort and albuterol p.r.n. at home and is placed on Advair at this time. I will discontinue the Advair. He has AFib with RVR and I will place him on ipratropium nebulizers q.6 hours. Goal saturation 90-94%. Adjust oxygen accordingly. (3) Obstructive sleep apnea (adult) (pediatric): Code(s): G47.33 - Obstructive sleep apnea (adult) (pediatric) Status: Acute Assessment and Plan: Patient tells me he had a sleep study 2-3 years ago and he was prescribed a CPAP mask and he tried 3 different mask but was unable to tolerate any of them. Plan: Prior to discharge will perform overnight oximetry to assess patient's oxygen requirements at night. If he is interested in attempting CPAP, or being evaluated for a dental appliance or the hypoglossal nerve stimulator will need an outpatient sleep study. History of Present Illness History of Present Illness Consult date: 05/03/25 Chief complaint: atrial fibrillation with rvr Narrative: 05/03/2025: This is a new pulmonary consult for mucus plugging. 79-year-old with a history of atrial fibrillation on Eliquis, COPD, hypertension, obstructive sleep apnea, psoriatic arthropathy on Humira, Pulmonary nodules. Regarding his COPD patient Smoked from 1960 to 2014 at 1 pack per day for 54 pack year. Patient smokes daily marijuana at 12-15 inhalations for the last 20 years. Patient was exposed to secondhand smoke from his father. 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 He denies vaping, he tried cocaine a few times and denies inhalation of methamphetamine. Patient tells me he has never had PFTs. Maintained on Symbicort and albuterol. Not on any supplemental oxygen. Currently tells me when he is feeling well he walked 3-4 blocks and then has to stop for shortness of breath. One year ago he could walk 6-7 blocks. Regarding his pulmonary nodules patient had a PET scan on 09/12/2023 with a stable 8 mm nodule left upper lobe without FDG activity. No enlarged thoracic lymph nodes. Low-dose CT scan on 02/18/2025 with lung rads 2, recommend follow-up in 12 months. Regarding his obstructive sleep apnea he tells me he had a sleep study 2-3 years ago and was prescribed a CPAP mask and he tried 6 3 CPAP mask but was unable to tolerate them. 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 On 05/02/2025 patient presented to the emergency room with Fourteen day history of cough and phlegm production, 10 day history of shortness of breath at rest and worsening dyspnea on exertion. He denied pedro fevers. No hemoptysis and no chest pain. He was found to be in AFib RVR with a heart rate of 134. Rest room air saturation 96%. White blood cell count 15.7, eosinophils 2.1, creatinine 1.02, BNP 4230, troponins negative x3. CT scan of the chest showed right lower lobe pneumonia with mucus in the airways but no lobar collapse. There is no apical predominant centrilobular Emphysema. Patient was treated with ceftriaxone and azithromycin. Advair 115-21 at 2 puffs q.12 hours, azithromycin was changed to doxycycline. 05/03/2025: Today the patient tells me he has improved and his breathing is 50% back to normal, his cough is 60% back to normal and his phlegm is more easily expectorated. White blood cell count 17.2, creatinine 0.90. Patient is on 2 L nasal cannula saturations 92%. His weight is 78 kg with an admission weight of 78.1 kg. DATA: 05/02/25: EXAMINATION: CT diagnostic chest wo con INDICATION: Pneumonia COMPARISON: None FINDINGS: There is linear discoid atelectasis in the dependent aspect bilateral lower lobes. There is bronchial wall thickening, mucous plugging and small region of groundglass opacity and consolidation at the posterior medial right lung base suspicious for superimposed pneumonia. There are some additional bronchial wall thickening and mucous plugging in the right middle lobe but without more peripheral airspace disease. No pulmonary edema or pleural effusion. Heart size is normal. Atherosclerotic coronary artery calcifications and aortic valve calcification. Thoracic aorta is normal in caliber. No pathologically enlarged thoracic lymphadenopathy. Severe thoracic spondylosis. Visualized upper abdomen is unremarkable. IMPRESSION: 1. Bronchitis and mucous plugging in the right middle and lower lobes with more focal small region of pneumonia at the posterior basilar right lower lobe. 02/18/25: CT Scan of the Chest without Contrast: Clinical Indication: Lung cancer screening, nicotine dependence COMPARISON: 05/31/2023 Findings: There is no evidence of any significant mediastinal, hilar or axillary lymphadenopathy. There are atherosclerotic calcifications of the aorta and coronary arteries. There is no evidence of pleural or pericardial effusion. Left upper lobe granuloma noted. Stable tiny right middle lobe nodules. Images through the upper abdomen reveal no abnormalities. Impression: Lung RADS 2: Benign appearance. 12 month follow-up screening CT advised. 09/12/2023: EXAMINATION: PET skull to mid thigh DATE: 09/12/2023 14:13 INDICATION: Lung nodule TECHNIQUE: Blood glucose level was 97 mg/dL. 9.060 mCi of 18-fluorodeoxyglucose (18-FDG) was administered i.v. Low dose computed tomography (CT) images were acquired from the base of the brain to the proximal thighs for attenuation correction and anatomic localization. Positron emission tomography (PET) images were acquired in the same distribution beginning 58 minutes after injection. The dose-length product (DLP) was 1086.14 mGy-cm. COMPARISON: CTs dated 05/31/2023 and 05/08/2022 FINDINGS: Head/neck: No abnormal FDG uptake is identified. FDG activity in the extraocular muscles, optic nerves, and vocal cords, without suspicious CT correlate, is likely physiologic. There is partial opacification of the left maxillary sinus. Chest: No abnormal FDG uptake is identified. There is a stable 8 mm nodule of the left upper lobe without associated FDG activity. No pathologically enlarged thoracic lymph nodes are identified. The heart size is normal. No pleural effusion or pneumothorax. The lungs are free of acute opacities. There is mild dependent atelectasis. Calcified coronary artery atherosclerosis is noted. There is slightly decreased FDG uptake in the left ventricular apex which could reflect prior myocardial infarction. Abdomen/pelvis/proximal thighs: No abnormal FDG uptake is identified. Physiologic FDG activity is present in the bowel and urinary tract. The liver, spleen, and adrenal glands are normal. Punctate calcifications of the prostate consistent with chronic pancreatitis. Stones are present in the nondistended gallbladder. No pathologically enlarged abdominal or pelvic lymph nodes are identified. No free intraperitoneal gas or evidence of bowel obstruction. There is an umbilical hernia containing fat. Musculoskeletal: No abnormal FDG uptake is identified. There is severe cervical, thoracic, and lumbar spondylosis. Osteoarthritis is also noted in the shoulders. IMPRESSION: 1. Pulmonary nodule without associated FDG uptake, consistent with a benign nodule. Review of Systems 2 Constitutional: Constitutional: Reports no additional constitutional complaints Eyes: Eyes: Reports no additional eye complaints ENT: Reports system reviewed and no additional complaints, except as documented Cardiovascular: Cardiovascular: Reports no additional cardiovascular complaints Respiratory: Respiratory: Reports no additional respiratory complaints Gastrointestinal: Gastrointestinal: Reports no additional gastrointestinal complaints Musculoskeletal: Musculoskeletal: Reports no additional musculoskeletal complaints Neurologic: Reports system reviewed and no additional complaints, except as documented Psychiatric: Psychiatric: Reports no additional psychiatric complaints Endocrine: Endocrine: Reports no additional endocrine complaints Hematologic/Lymphatic: Hematologic/Lymphatic: Reports no additional hematologic/lymphatic complaints Allergic/Immunologic: Allergic/Immunologic: Reports no additional allergic/immunologic complaints FOR[facility]LY [facility], [facility] Past Medical History Medical History Prediabetes Atrial fibrillation COPD (chronic obstructive pulmonary disease) Lung nodules Umbilical hernia Brain aneurysm Enlarged prostate with lower urinary tract symptoms (LUTS) Essential (primary) hypertension Obstructive sleep apnea (adult) (pediatric) Other psoriatic arthropathy Polyosteoarthritis, unspecified Psoriasis vulgaris Vitamin D deficiency Surgical History Surgical History H/O arthroscopic knee surgery Family History Family History Father Family history of diabetes mellitus in first degree relative, Onset Age: 62 Patient's father is Diabetes mellitus Mother Family history of heart disease in male family member before age 55, Onset Age: 81 Patient's mother is Family history of cardiovascular disease Social History Social History Smoking packs per day: 1 Smoking cigarettes per day: 20.0 Years smoked: 40 Smoking pack-years: 40.00 Smoking status: Former smoker Tobacco type: cigarettes Second hand tobacco smoke exposure: No Smoking end date: 12/02/16 Alcohol intake: current Substance use: current Substance use type: marijuana Other substance usage details: COUPLE TIMES A WEEK Do You Feel Safe in your Home?: Yes Lack of Transportation: No Lack of Food: Never True Current Housing: I Have Housing Concerned About Future Housing: No Difficulty Paying Gas/Electric Bills: No Difficulty Paying for Meds: No Currently Unemployed: No Education: High School Diploma/GED Difficulty w/ Childcare or Family Care: No Living arrangements: with family Spiritual care concerns: No Meds Home Medications and Allergies Home Medications ?Medication ?Instructions ?Recorded ?Confirmed ?Type adalimumab 40 mg/0.8 mL See Rx Instructions subcut .COMPLEX 01/13/20 05/02/25 History subcutaneous syringe kit (Humira) multivitamin 1 tablet PO DAILY 01/09/23 05/02/25 History apixaban 2.5 mg tablet (Eliquis) See Rx Instructions .Route 09/30/24 05/02/25 Rx .COMPLEX #60 tabs metoprolol tartrate 50 mg tablet See Rx Instructions .Route 12/08/24 05/02/25 Rx .COMPLEX #180 tabs diltiazem HCl 240 mg See Rx Instructions .Route 12/28/24 05/02/25 Rx capsule,extended release 24 hr .COMPLEX #90 caps Symbicort 160 mcg-4.5 See Rx Instructions .Route 02/03/25 05/02/25 Rx mcg/actuation HFA aerosol inhaler .COMPLEX #10.2 grams (budesonide-formoterol) albuterol sulfate 90 mcg/actuation See Rx Instructions .Route 03/01/25 05/02/25 Rx aerosol inhaler .COMPLEX #8.5 grams hydrocodone 7.5 mg-acetaminophen 1 tablet PO Q6H PRN pain #110 tabs 04/09/25 05/02/25 Rx 325 mg tablet L.acid,par,plant,rham-B.anim,bif,brev,inf,long 1 cap PO DAILY 05/02/25 05/02/25 History 30 billion cell capsule (Probiotic Digestive Health) aspirin 81 mg capsule 81 mg PO DAILY 05/02/25 05/02/25 History cyanocobalamin (vitamin B-12) 500 500 mcg PO DAILY 05/02/25 05/02/25 History mcg tablet (B-12 DOTS) magnesium 250 mg tablet 500 mg PO DAILY 05/02/25 05/02/25 History omega 6-tqa-xwj-fish oil 1,200 mg 1 cap PO DAILY 05/02/25 05/02/25 History (144 mg-216 mg) capsule (Fish Oil) Allergies Allergy/AdvReac Type Severity Reaction Status Date / Time No Known Allergies Allergy Unknown Verified 07/01/24 10:25 Vital Signs Vital Signs - 24 hr 05/02/25 16:00 05/02/25 16:00 05/02/25 16:00 Temperature Pulse Rate 121 H 124 H Respiratory Rate Blood Pressure 148/105 H Pulse Oximetry Oxygen Delivery Room Air Oxygen Flow Rate 05/02/25 16:27 05/02/25 17:35 05/02/25 18:00 Temperature 37.1 C Pulse Rate 123 H 135 H 112 H Respiratory Rate 21 H Blood Pressure 155/103 H Pulse Oximetry 94 Oxygen Delivery Oxygen Flow Rate 05/02/25 18:00 05/02/25 18:43 05/02/25 20:00 Temperature 36.9 C Pulse Rate 123 H 116 H 98 Respiratory Rate 20 22 H Blood Pressure 155/103 H 154/83 H Pulse Oximetry 92 92 Oxygen Delivery Nasal Cannula Oxygen Flow Rate 2 05/02/25 20:00 05/02/25 20:00 05/02/25 20:08 Temperature Pulse Rate 114 H 136 H 136 H Respiratory Rate Blood Pressure 154/83 H Pulse Oximetry Oxygen Delivery Oxygen Flow Rate 05/02/25 21:12 05/02/25 21:12 05/02/25 22:00 Temperature Pulse Rate 75 75 82 Respiratory Rate 16 Blood Pressure Pulse Oximetry 90 Oxygen Delivery Nasal Cannula Oxygen Flow Rate 2 05/02/25 23:18 05/02/25 23:22 05/03/25 00:00 Temperature 37.0 C Pulse Rate 84 94 99 Respiratory Rate 16 20 Blood Pressure 135/80 Pulse Oximetry 93 93 Oxygen Delivery Nasal Cannula Oxygen Flow Rate 2 05/03/25 02:00 05/03/25 04:00 05/03/25 04:00 Temperature 36.9 C Pulse Rate 114 H 117 H 113 H Respiratory Rate 20 16 Blood Pressure 135/88 Pulse Oximetry 94 94 Oxygen Delivery Nasal Cannula Oxygen Flow Rate 2 05/03/25 04:00 05/03/25 06:00 05/03/25 07:50 Temperature 36.6 C Pulse Rate 110 H 104 H 114 H Respiratory Rate 22 H Blood Pressure 147/93 H Pulse Oximetry 94 Oxygen Delivery Oxygen Flow Rate 05/03/25 07:59 05/03/25 07:59 05/03/25 08:00 Temperature Pulse Rate 107 H 102 H Respiratory Rate 20 20 Blood Pressure Pulse Oximetry 93 94 Oxygen Delivery Nasal Cannula Nasal Cannula Oxygen Flow Rate 3 2 05/03/25 08:00 05/03/25 08:12 05/03/25 10:00 Temperature Pulse Rate 102 H 106 H 76 Respiratory Rate Blood Pressure Pulse Oximetry Oxygen Delivery Oxygen Flow Rate 05/03/25 12:00 05/03/25 12:00 05/03/25 12:14 Temperature 36.4 C Pulse Rate 87 87 78 Respiratory Rate 20 22 H Blood Pressure 131/72 Pulse Oximetry 94 92 Oxygen Delivery Nasal Cannula Oxygen Flow Rate 2 05/03/25 14:00 Temperature Pulse Rate 85 Respiratory Rate Blood Pressure Pulse Oximetry Oxygen Delivery Oxygen Flow Rate Exam 2 Const: General: cooperative, healthy appearing and comfortable O rientation/consciousness: oriented to person, oriented to place and oriented to time HENMT: Head: normal to inspection Ears: hearing grossly normal bilaterally Eyes: General: appearance normal, both eyes and all related structures Neck: Neck: normal visual inspection Chest: Chest palpation & inspection: normal inspection of the chest Resp: Effort & Inspection: normal respiratory effort and able to speak in complete sentences Auscultation: crackles, no rales, no rhonchi, no wheezes and lung sounds not diminished Other: right base Cardio: Jugular venous distension: no JVD GI: Inspection: normal to inspection GI Palp: No abdominal tenderness Skin: General skin exam: normal color Other: some skin plaques Neuro: General: oriented to person, oriented to place and oriented to time Extrem: General: normal to inspection and no edema Psych: Appearance: grossly normal Results Laboratory Findings 05/03/25 03:52 05/03/25 03:52 ABG, PT/INR, D-dimer: PT/INR, D-dimer PT 16.6 Seconds (11.1-14.7) H 05/02/25 07:40 INR 1.4 05/02/25 07:40 Abnormal lab findings: Abnormal Labs 05/02/25 05/03/25 07:40 03:52 WBC 15.7 H 17.2 H MPV 11.1 H 11.9 H Lymph % (Auto) 18.1 L [place] % (Auto) 10.5 H 11.8 H Lymph # (Auto) 4.32 H [place] # (Auto) 1.7 H 2.0 H Abs Immat Gran (auto) 0.07 H 0.08 H Absolute Neuts (auto) 9.2 H 11.7 H PT 16.6 H Sodium 136 L 133 L BUN 29 H 24 H Glucose 112 H Total Bilirubin 1.4 H AST 62 H ALT 70 H 51 H NT-Pro-B Natriuret Pep 4230 H Diagnostic Findings Additional studies: ITS Impressions Chest X-Ray 05/02/25 08:39 IMPRESSION: 1. Mild bibasilar opacities and favor persistent atelectasis/scarring over pneumonia. Chest CT 05/02/25 11:03
[2025-05-03] MEDS: IPRATROPIUM BR 0.02% INH SOLN 0.5 MG/2.5 ML VIAL INHALATION (19:54)
[2025-05-03] MEDS: ACETAMINOPHEN 325 MG TABLET 650 MG PO (20:15)
[2025-05-04] VITALS (26 sets, daily range): BP systolic 128–144; BP diastolic 70–85; PULSE 58–137; RESP 16–22; TEMP 36.6–36.9; O2SAT 91–95
[2025-05-04] MEDS: IPRATROPIUM BR 0.02% INH SOLN 0.5 MG/2.5 ML VIAL INHALATION ×4 (02:08→20:18)
[2025-05-04 04:59] LABS: Basophils Absolute Auto 0.1 K/mm3 (0.0-0.1); Basophils Percent Auto 0.6 % (0.2-1.2); Eosinophils Absolute Auto 0.7 K/mm3 (0-0.3); Hematocrit 46.9 % (42.0-52.0); Hemoglobin 15.3 g/dL (14.0-18.0); Immature Granulocyte Absolute 0.07 K/mm3 (0.00-0.031); Immature Granulocyte Percent A 0.5 % (0-0.5); Lymphocytes Absolute Auto 2.31 K/mm3 (0.9-3.2); Lymphocytes Percent Auto 17.5 % (18.3-44.2); Mean Corpuscular HGB Conc 32.6 g/dl (32-36); Mean Corpuscular Volume 94.9 fl (80-100); Mean Platelet Volume 11.8 fl (7.4-10.4); Monocytes Absolute Auto 1.5 K/mm3 (0.1-0.6); Monocytes Percent Auto 11.2 % (2.6-8.5); Neutrophils Absolute Auto 8.6 K/mm3 (1.3-6.7); Neutrophils Percent Auto 65.2 % (45.5-73.1); Platelet Count Result 164 k/mm3 (150-375); Red Blood Count 4.94 M/mm3 (4.6-6.20); Red Cell Distribution Width 14.2 % (11.5-14.5); White Blood Count 13.2 K/mm3 (4.5-10.0)
[2025-05-04 05:07] LABS: Alanine Aminotransferase 41 U/L (6-50); Albumin Level 3.4 g/dL (3.5-5.1); Alkaline Phosphatase 81 U/L (38-126); Anion Gap 8 mmol/L (4-12); Aspartate Amino Transferase 42 U/L (17-59); Bilirubin,Total 1.1 mg/dL (0.2-1.3); Blood Urea Nitrogen 23 mg/dL (9-20); Calcium 8.7 mg/dL (8.4-10.2); Carbon Dioxide 23 mmol/L (22-30); Chloride 105 mmol/L (98-107); Estimated CRCL calculation 55 ml/min; Estimated Glomerular Filt Rate > 60; Glucose 98 mg/dL (65-110); Magnesium 1.9 mg/dL (1.6-2.3); Sodium 136 mmol/L (137-145)
[2025-05-04 05:57] LABS: Procalcitonin 0.1 ng/mL
[2025-05-04] MEDS: APIXABAN 2.5 MG TABLET PO ×2 (08:24→20:30)
[2025-05-04] MEDS: ASPIRIN 81 MG ENTERIC TABLET PO (08:24)
[2025-05-04] MEDS: MAGNESIUM 27 MG TABLET (500 MG MAG GLUCONATE) PO (08:24)
[2025-05-04] MEDS: OMEGA 3 POLYUNSAT FATTY ACIDS 1 GM CAP PO (08:24)
[2025-05-04] MEDS: cefTRIAXone 2 GM/NS 100 ML 2 GM/100 ML BAG IVPB (08:25)
[2025-05-04] MEDS: dilTIAZem HCL CD 240 MG CAP.24HR BY MOUTH (08:25)
[2025-05-04] MEDS: METOPROLOL TARTRATE 50 MG TAB BY MOUTH ×2 (08:25→20:30)
[2025-05-04] MEDS: DOXYCYCLINE 100 MG/NS 100 ML 100 MG/100 ML BAG IVPB ×2 (08:26→20:31)
--- NOTE | 2025-05-04 09:55 | P.PNPL_ITS ---
Progress Note: A&P Assessment and Plan (1) Pneumonia: Code(s): J18.9 - Pneumonia, unspecified organism Status: Acute Assessment and Plan: Patient carries a diagnosis of COPD, psoriatic arthritis on Humira since 2016 and presents with 14 days of cough and phlegm and 10 days of shortness of breath with a leukocytosis, new oxygen requirements and a CT scan with right lower lobe pneumonia. There is mucus in the airway but no pedro mucus plugging as there is no lobar collapse or segmental consolidation. Plan: Agree with continuation of ceftriaxone and doxycycline, both day 2. Patient does have a hard time coughing up his phlegm and I will add guaifenesin 1200 mg p.o. b.i.d., a Cornet flutter valve. I will send a sputum for bacterial culture, urine for Legionella, urine for pneumococcal, serum IgM and a respiratory pathogen panel looking for etiology of his pneumonia. No history of aspiration, loss of consciousness or seizures and I will discontinue Flagyl. 05/04/2025: The patient tells me he is improved. States he is 60-65% back to his baseline. His cough is 80% improved. Minimal phlegm production and no hemoptysis. He is afebrile. White blood cell count 13.2, creatinine 0.94. When I enter the room he was on 3 L with saturations 94%. I decreased him to room air and after 7 minutes his saturations were 89%. I placed him on 1 L nasal cannula saturations were 91%. Plan: Will continue ceftriaxone and doxycycline, both day 3. Continue guaifenesin, Cornet flutter valve and ipratropium nebulizers. urine for Legionella, urine for pneumococcal, serum IgM and a respiratory pathogen panel looking for etiology of his pneumonia all pending. (2) COPD (chronic obstructive pulmonary disease): Code(s): J44.9 - Chronic obstructive pulmonary disease, unspecified Status: Acute Assessment and Plan: Patient with a 54 pack year tobacco use, quit 2013. He has daily marijuana use at 12-15 inhalations a day for the last 20 years. 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 I have no PFTs. There is no apical predominant centrilobular emphysema on his CT scan. He presented with an eosinophil count of 329 per micro L. he has no wheezing. Plan: I do not believe patient is having a COPD exacerbation. There is no need for inhaled or systemic steroids at this point. Patient was maintained on Symbicort and albuterol p.r.n. at home and is placed on Advair at this time. I will discontinue the Advair. He has AFib with RVR and I will place him on ipratropium nebulizers q.6 hours. Goal saturation 90-94%. Adjust oxygen accordingly. 05/04/25: No wheezing. currently on 1 L. Plan: Continue ipratropium nebulizers q.6 hours. Goal saturation 90-94% and adjust oxygen accordingly. Currently on 1 L. I will perform overnight oximetry on room air tonight. (3) Obstructive sleep apnea (adult) (pediatric): Code(s): G47.33 - Obstructive sleep apnea (adult) (pediatric) Status: Acute Assessment and Plan: Patient tells me he had a sleep study 2-3 years ago and he was prescribed a CPAP mask and he tried 3 different mask but was unable to tolerate any of them. Plan: Prior to discharge will perform overnight oximetry to assess patient's oxygen requirements at night. If he is interested in attempting CPAP, or being evaluated for a dental appliance or the hypoglossal nerve stimulator will need an outpatient sleep study. 05/04/25: The patient tells me he will not be able to tolerate a CPAP mask. Plan: I will obtain overnight oximetry on room air to see if he requires oxygen at night. I have explained to him that if he is interested in CPAP, dental appliance or hypoglossal nerve stimulator he will need an outpatient s leep study at this time he declines. Subjective Date/time seen: 05/04/25 09:55 Interval history: 05/03/2025: This is a new pulmonary consult for mucus plugging. 79-year-old with a history of atrial fibrillation on Eliquis, COPD, hypertension, obstructive sleep apnea, psoriatic arthropathy on Humira, Pulmonary nodules. Regarding his COPD patient Smoked from 1960 to 2014 at 1 pack per day for 54 pack year. Patient smokes daily marijuana at 12-15 inhalations for the last 20 years. Patient was exposed to secondhand smoke from his father. 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 He denies vaping, he tried cocaine a few times and denies inhalation of methamphetamine. Patient tells me he has never had PFTs. Maintained on Symbicort and albuterol. Not on any supplemental oxygen. Sylvia rrently tells me when he is feeling well he walked 3-4 blocks and then has to stop for shortness of breath. One year ago he could walk 6-7 blocks. Regarding his pulmonary nodules patient had a PET scan on 09/12/2023 with a stable 8 mm nodule left upper lobe without FDG activity. No enlarged thoracic lymph nodes. Low-dose CT scan on 02/18/2025 with lung rads 2, recommend follow-up in 12 months. Regarding his obstructive sleep apnea he tells me he had a sleep study 2-3 years ago and was prescribed a CPAP mask and he tried 6 3 CPAP mask but was unable to tolerate them. 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 On 05/02/2025 patient presented to the emergency room with Fourteen day history of cough and phlegm production, 10 day history of shortness of breath at rest and worsening dyspnea on exertion. He denied pedro fevers. No hemoptysis and no chest pain. He was found to be in AFib RVR with a heart rate of 134. Rest room air saturation 96%. White blood cell count 15.7, eosinophils 2.1, creatinine 1.02, BNP 4230, troponins negative x3. CT scan of the chest showed right lower lobe pneumonia with mucus in the airways but no lobar collapse. There is no apical predominant centrilobular Emphysema. Patient was treated with ceftriaxone and azithromycin. Advair 115-21 at 2 puffs q.12 hours, azithromycin was changed to doxycycline. 05/03/2025: Today the patient tells me he has improved and his breathing is 50% back to normal, his cough is 60% back to normal and his phlegm is more easily expectorated. White blood cell count 17.2, creatinine 0.90. Patient is on 2 L nasal cannula saturations 92%. His weight is 78 kg with an admission weight of 78.1 kg. 05/04/2025: The patient tells me he is improved. States he is 60-65% back to his baseline. His cough is 80% improved. Minimal phlegm production and no hemoptysis. He is afebrile. White blood cell count 13.2, creatinine 0.94. When I enter the room he was on 3 L with saturations 94%. I decreased him to room air and after 7 minutes his saturations were 89%. I placed him on 1 L nasal cannula saturations were 91%. DATA: 05/02/25: EXAMINATION: CT diagnostic chest wo con INDICATION: Pneumonia COMPARISON: None FINDINGS: There is linear discoid atelectasis in the dependent aspect bilateral lower lobes. There is bronchial wall thickening, mucous plugging and small region of groundglass opacity and consolidation at the posterior medial right lung base suspicious for superimposed pneumonia. There are some additional bronchial wall thickening and mucous plugging in the right middle lobe but without more peripheral airspace disease. No pulmonary edema or pleural effusion. Heart size is normal. Atherosclerotic coronary artery calcifications and aortic valve calcification. Thoracic aorta is normal in caliber. No pathologically enlarged thoracic lymphadenopathy. Severe thoracic spondylosis. Visualized upper abdomen is unremarkable. IMPRESSION: 1. Bronchitis and mucous plugging in the right middle and lower lobes with more focal small region of pneumonia at the posterior basilar right lower lobe. 02/18/25: CT Scan of the Chest without Contrast: Clinical Indication: Lung cancer screening, nicotine dependence COMPARISON: 05/31/2023 Findings: There is no evidence of any significant mediastinal, hilar or axillary lymphadenopathy. There are atherosclerotic calcifications of the aorta and coronary arteries. There is no evidence of pleural or pericardial effusion. Left upper lobe granuloma noted. Stable tiny right middle lobe nodules. Images through the upper abdomen reveal no abnormalities. Impression: Lung RADS 2: Benign appearance. 12 month follow-up screening CT advised. 09/12/2023: EXAMINATION: PET skull to mid thigh DATE: 09/12/2023 14:13 INDICATION: Lung nodule TECHNIQUE: Blood glucose level was 97 mg/dL. 9.060 mCi of 18-fluorodeoxyglucose (18-FDG) was administered i.v. Low dose computed tomography (CT) images were acquired from the base of the brain to the proximal thighs for attenuation correction and anatomic localization. Positron emission tomography (PET) images were acquired in the same distribution beginning 58 minutes after injection. The dose-length product (DLP) was 1086.14 mGy-cm. COMPARISON: CTs dated 05/31/2023 and 05/08/2022 FINDINGS: Head/neck: No abnormal FDG uptake is identified. FDG activity in the extraocular muscles, optic nerves, and vocal cords, without suspicious CT correlate, is likely physiologic. There is partial opacification of the left maxillary sinus. Chest: No abnormal FDG uptake is identified. There is a stable 8 mm nodule of the left upper lobe without associated FDG activity. No pathologically enlarged thoracic lymph nodes are identified. The heart size is normal. No pleural effusion or pneumothorax. The lungs are free of acute opacities. There is mild dependent atelectasis. Calcified coronary artery atherosclerosis is noted. There is slightly decreased FDG uptake in the left ventricular apex which could reflect prior myocardial infarction. Abdomen/pelvis/proximal thighs: No abnormal FDG uptake is identified. Physiologic FDG activity is present in the bowel and urinary tract. The liver, spleen, and adrenal glands are normal. Punctate calcifications of the prostate consistent with chronic pancreatitis. Stones are present in the nondistended gal lbladder. No pathologically enlarged abdominal or pelvic lymph nodes are identified. No free intraperitoneal gas or evidence of bowel obstruction. There is an umbilical hernia containing fat. Musculoskeletal: No abnormal FDG uptake is identified. There is severe cervical, thoracic, and lumbar spondylosis. Osteoarthritis is also noted in the shoulders. IMPRESSION: 1. Pulmonary nodule without associated FDG uptake, consistent with a benign nodule. Review of Systems Constitutional: Constitutional: Reports no additional constitutional complaints Eyes: Eyes: Reports no additional eye complaints ENT: Reports system reviewed and no additional complaints, except as documented Cardiovascular: Cardiovascular: Reports no additional cardiovascular complaint s Respiratory: Respiratory: Reports no additional respiratory complaints Gastrointestinal: Gastrointestinal: Reports no additional gastrointestinal complaints Musculoskeletal: Musculoskeletal: Reports no additional musculoskeletal complaints Neurologic: Reports system reviewed and no additional complaints, except as documented Psychiatric: Psychiatric: Reports no additional psychiatric complaints Endocrine: Endocrine: Reports no additional endocrine complaints Hematologic/Lymphatic: Hematologic/Lymphatic: Reports no additional hematologic/lymphatic complaints Allergic/Immunologic: Allergic/Immunologic: Reports no additional allergic/immunologic complaints Exam Const: General: cooperative, healthy appearing and comfortable Orientation/consciousness: oriented to person, oriented to place and oriented to time HENMT: Head: normal to inspection Ears: hearing grossly normal bilaterally Eyes: General: appearance normal, both eyes and all related structures Neck: Neck: normal visual inspection Chest: Chest palpation & inspection: normal inspection of the chest Resp: Effort & Inspection: normal respiratory effort and able to speak in complete sentences Auscultation: crackles, no rales, no rhonchi, no wheezes and lung sounds not diminished Other: right base Cardio: Jugular venous distension: no JVD GI: Inspection: normal to inspection Skin: General skin exam: normal color Other: some skin plaques Neuro: General: oriented to person, oriented to place and oriented to time Extrem: General: normal to inspection and no edema Psych: Appearance: grossly normal Objective Data Vital Signs Vital Signs: Vital Signs - 24 hr 05/03/25 10:00 05/03/25 12:00 05/03/25 12:00 Temperature Pulse Rate 76 87 87 Respiratory Rate 20 Blood Pressure Pulse Oximetry 94 Oxygen Delivery Nasal Cannula Oxygen Flow Rate 2 05/03/25 12:14 05/03/25 14:00 05/03/25 16:00 Temperature 36.4 C Pulse Rate 78 85 89 Respiratory Rate 22 H 20 Blood Pressure 131/72 Pulse Oximetry 92 92 Oxygen Delivery Nasal Cannula Oxygen Flow Rate 2 05/03/25 16:00 05/03/25 16:43 05/03/25 18:00 Temperature 36.8 C Pulse Rate 99 97 106 H Respiratory Rate 22 H Blood Pressure 147/80 H Pulse Oximetry 94 Oxygen Delivery Oxygen Flow Rate 05/03/25 19:54 05/03/25 19:55 05/03/25 19:58 Temperature Pulse Rate 110 H 77 77 Respiratory Rate 22 H 18 18 Blood Pressure Pulse Oximetry 94 92 Oxygen Delivery Nasal Cannula Nasal Cannula Oxygen Flow Rate 3 3 05/03/25 20:00 05/03/25 20:00 05/03/25 20:04 Temperature 37.2 C Pulse Rate 110 H 118 H 110 H Respiratory Rate 22 H 16 Blood Pressure 136/78 Pulse Oximetry 94 Oxygen Delivery Oxygen Flow Rate 05/03/25 20:14 05/03/25 22:00 05/03/25 23:15 Temperature 37.1 C Pulse Rate 118 H 93 102 H Respiratory Rate 20 Blood Pressure 128/78 Pulse Oximetry 93 Oxygen Delivery Oxygen Flow Rate 05/03/25 23:16 05/04/25 00:00 05/04/25 02:00 Temperature Pulse Rate 93 81 82 Respiratory Rate 20 Blood Pressure Pulse Oximetry 93 Oxygen Delivery Nasal Cannula Oxygen Flow Rate 3 05/04/25 02:11 05/04/25 02:19 05/04/25 04:00 Temperature Pulse Rate 58 L 81 97 Respiratory Rate 16 16 16 Blood Pressure Pulse Oximetry 93 Oxygen Delivery Nasal Cannula Oxygen Flow Rate 3 05/04/25 04:00 05/04/25 04:00 05/04/25 06:00 Temperature 36.9 C Pulse Rate 88 77 85 Respiratory Rate 20 Blood Pressure 128/80 Pulse Oximetry 94 Oxygen Delivery Oxygen Flow Rate 05/04/25 07:27 05/04/25 08:25 05/04/25 08:46 Temperature 36.7 C Pulse Rate 97 137 H Respiratory Rate 18 Blood Pressure 140/85 Pulse Oximetry 95 91 Oxygen Delivery Nasal Cannula Oxygen Flow Rate 1 05/04/25 08:46 05/04/25 08:51 Temperature Pulse Rate 123 H 123 H Respiratory Rate 20 20 Blood Pressure Pulse Oximetry Oxygen Delivery Oxygen Flow Rate Intake/Output Intake/Output: Intake & Output 05/01/25 05/02/25 05/03/25 05/04/25 23:59 23:59 23:59 23:59 Intake Total 1040.8 1790 830 Output Total 1051 500 Balance 1040.8 739 330 Meds/Results Medications: Active Medications Generic Name Dose Route Start Last Admin Trade Name Freq PRN Reason Stop Dose Admin Acetaminophen 650 mg 05/02/25 09:57 05/03/25 20:15 Acetaminophen 325 Mg Tablet PO 650 mg Q4H PRN Administration Mild Pain (1-3) or Fever Apixaban 2.5 mg 05/02/25 21:00 05/04/25 08:24 Apixaban 2.5 Mg Tablet PO 2.5 mg Q12HR BERNARDA Administration Aspirin 81 mg 05/03/25 09:00 05/04/25 08:24 Aspirin 81 Mg Enteric Tablet PO 81 mg QAM BERNARDA Administration Diltiazem HCl 240 mg 05/02/25 16:00 05/04/25 08:25 Diltiazem Hcl Cd 240 Mg Cap.24hr BY MOUTH 240 mg DAILY BERNARDA Administration Fish Oil 1 gm 05/03/25 09:00 05/04/25 08:24 [place] 3 Polyunsat Fatty Acids 1 Gm Cap PO 1 gm DAILY BERNARDA Administration Doxycycline Hyclate 100 mg in 100 mls @ 100 mls/hr 05/02/25 21:00 05/04/25 08:26 Vibramycin 100 Mg/Ns 100 Ml IVPB 100 mls/hr Q12H BERNARDA Administration Ceftriaxone Sodium 2 gm in 100 mls @ 200 mls/hr 05/03/25 09:00 05/04/25 08:25 Rocephin 2 Gm/Ns 100 Ml IVPB 200 mls/hr Q24H BERNARDA Administration Ipratropium [place] 0.5 mg 05/03/25 20:00 05/04/25 08:44 Ipratropium Br 0.02% Inh Soln 0.5 Mg/2.5 Ml Vial INHALATION 0.5 mg Q6HRT BERNARDA Administration Magnesium Gluconate 27 mg 05/03/25 09:00 05/04/25 08:24 Magnesium 27 Mg Tablet (500 Mg Mag Gluconate) PO 27 mg DAILY BERNARDA Administration Metoprolol Tartrate 50 mg 05/02/25 21:00 05/04/25 08:25 Metoprolol Tartrate 50 Mg Tab BY MOUTH 50 mg Q12HR BERNARDA Administration Perflutren Lipid Microsphere 0 ml 05/03/25 15:21 Perflutren Lipid Microspheres 1.5 Ml Vial Diluted To 10 Ml Total Volume IV PUSH 05/06/25 15:21 ONCE PRN adequate visualization Protocol Radiology Results: ITS Impressions Chest X-Ray 05/02/25 08:39 IMPRESSION: 1. Mild bibasilar opacities and favor persistent atelectasis/scarring over pneumonia. Chest CT 05/02/25 11:03 IMPRESSION: 1. Bronchitis and mucous plugging in the right middle and lower lobes with more focal small region of pneumonia at the posterior basilar right lower lobe. Labs Labs: Laboratory Results - last 24 hr 05/04/25 05/04/25 03:34 03:35 WBC 13.2 H RBC 4.94 Hgb 15.3 Hct 46.9 MCV 94.9 MCH 31.0 MCHC 32.6 RDW 14.2 Plt Count 164 MPV 11.8 H Immature Gran % (Auto) 0.5 Neut % (Auto) 65.2 Lymph % (Auto) 17.5 L [place] % (Auto) 11.2 H Eos % (Auto) 5.0 H Baso % (Auto) 0.6 Lymph # (Auto) 2.31 [place] # (Auto) 1.5 H Eos # (Auto) 0.7 H Baso # (Auto) 0.1 Abs Immat Gran (auto) 0.07 H Absolute Neuts (auto) 8.6 H Absolute Nucleated RBC 0.000 Nucleated RBC % 0.0 Sodium 136 L Potassium 4.0 Chloride 105 Carbon Dioxide 23 Anion Gap 8 BUN 23 H Creatinine 0.94 Estim Creat Clear Calc 55 Estimated GFR > 60 Glucose 98 Calcium 8.7 Magnesium 1.9 Total Bilirubin 1.1 AST 42 ALT 41 Alkaline Phosphatase 81 Total Protein 7.0 Albumin 3.4 L Procalcitonin 0.1
--- NOTE | 2025-05-04 12:35 | PCPTNOTE ---
Spoke with Hospitalist, BRANDON Burton to remove bedrest orders for safe participation in skilled therapy. Will notify nursing.
--- NOTE | 2025-05-04 17:43 | PM.IMPN ---
Progress Note: A&P Assessment and Plan (1) Atrial fibrillation with rapid ventricular response: Code(s): I48.91 - Unspecified atrial fibrillation Status: Acute Plan Patient with shortness of breath was found to have bronchitis and mucous plugging in the right middle and lower lobes with more focal small region of pneumonia at the posterior basilar right lower lobe with underlining COPD, was seen by his ticket [employer] ferry[employer], was treated with ceftriaxone and doxycycline, patient clinical symptoms are improving and stats he is not as short of breath as when he came to the ER, patient clinical symptoms are improving, will monitor, Afib RVR, rate controlled Patient has a history of Afib TSH WNL, ECHO currently on home Cardizem and Metoprolol Titrate off Cardizem infusion On Eliquis monitor Pneumonia CT Chest showed mucus plug with posterior basilar right lower lobe MRSA negative Blood culture ordered On Rocephin, Flagyl and Doxycycline Pulmonology consulted monitor Acute hypoxemic respiratory failure on 2 liters oxygen titrate oxygen Hypertension Titrate home meds with clinical course DVT prophylaxis on Eliquis Full code Subjective Date/time seen: 05/04/25 17:43 Interval history: Comfortable at bedside CT Chest showed mucus plug with posterior basilar right lower lobe Flagyl added Patient with shortness of breath was found to have bronchitis and mucous plugging in the right middle and lower lobes with more focal small region of pneumonia at the posterior basilar right lower lobe with underlining COPD, was seen by his ticket t[employer] ferry[employer], was treated with ceftriaxone and doxycycline, patient clinical symptoms are improving and stats he is not as short of breath as when he came to the ER, patient clinical symptoms are improving, will monitor, Review of Systems Review of Systems: All other systems were reviewed and negative except as noted in the HPI above Exam Narrative: Patient is comfortable, NAD HEENT: eyes are clear and none icteric LUNGS: Bilateral fair entry with rhonchi HEART: RR S1S2 ABD: BS+, Soft and nontender Lower extremities: no edema SKIN: nonjaundiced Neuro: grossly intact. Objective Data Vital Signs Vital Signs: Vital Signs - 24 hr 05/03/25 18:00 05/03/25 19:54 05/03/25 19:55 Temperature Pulse Rate 106 H 110 H 77 Respiratory Rate 22 H 18 Blood Pressure Pulse Oximetry 94 Oxygen Delivery Nasal Cannula Oxygen Flow Rate 3 05/03/25 19:58 05/03/25 20:00 05/03/25 20:00 Temperature 37.2 C Pulse Rate 77 110 H 118 H Respiratory Rate 18 22 H Blood Pressure 136/78 Pulse Oximetry 92 94 Oxygen Delivery Nasal Cannula Oxygen Flow Rate 3 05/03/25 20:04 05/03/25 20:14 05/03/25 22:00 Temperature Pulse Rate 110 H 118 H 93 Respiratory Rate 16 Blood Pressure Pulse Oximetry Oxygen Delivery Oxygen Flow Rate 05/03/25 23:15 05/03/25 23:16 05/04/25 00:00 Temperature 37.1 C Pulse Rate 102 H 93 81 Respiratory Rate 20 20 Blood Pressure 128/78 Pulse Oximetry 93 93 Oxygen Delivery Nasal Cannula Oxygen Flow Rate 3 05/04/25 02:00 05/04/25 02:11 05/04/25 02:19 Temperature Pulse Rate 82 58 L 81 Respiratory Rate 16 16 Blood Pressure Pulse Oximetry Oxygen Delivery Oxygen Flow Rate 05/04/25 04:00 05/04/25 04:00 05/04/25 04:00 Temperature 36.9 C Pulse Rate 97 88 77 Respiratory Rate 16 20 Blood Pressure 128/80 Pulse Oximetry 93 94 Oxygen Delivery Nasal Cannula Oxygen Flow Rate 3 05/04/25 06:00 05/04/25 07:27 05/04/25 08:00 Temperature 36.7 C Pulse Rate 85 97 Respiratory Rate 18 Blood Pressure 140/85 Pulse Oximetry 95 94 Oxygen Delivery Nasal Cannula Oxygen Flow Rate 3 05/04/25 08:00 05/04/25 08:25 05/04/25 08:46 Temperature Pulse Rate 130 H 137 H Respiratory Rate Blood Pressure Pulse Oximetry 91 Oxygen Delivery Nasal Cannula Oxygen Flow Rate 1 05/04/25 08:46 05/04/25 08:51 05/04/25 10:00 Temperature Pulse Rate 123 H 123 H 112 H Respiratory Rate 20 20 Blood Pressure Pulse Oximetry Oxygen Delivery Oxygen Flow Rate 05/04/25 11:23 05/04/25 12:00 05/04/25 12:00 Temperature 36.6 C Pulse Rate 93 104 H Respiratory Rate 20 Blood Pressure 129/70 Pulse Oximetry 93 92 Oxygen Delivery Nasal Cannula Oxygen Flow Rate 1 05/04/25 12:38 05/04/25 15:30 05/04/25 15:40 Temperature 36.9 C Pulse Rate 87 93 Respiratory Rate 22 H 20 Blood Pressure 142/75 H Pulse Oximetry 95 Oxygen Delivery Nasal Cannula Oxygen Flow Rate 1 05/04/25 16:00 Temperature Pulse Rate 89 Respiratory Rate Blood Pressure Pulse Oximetry Oxygen Delivery Oxygen Flow Rate Intake/Output Intake/Output: Intake & Output 05/01/25 05/02/25 05/03/25 05/04/25 23:59 23:59 23:59 23:59 Intake Total 1040.8 1790 1810 Output Total 1051 500 Balance 1040.8 739 1310 Meds/Results Medications: Active Medications Generic Name Dose Route Start Last Admin Trade Name Freq PRN Reason Stop Dose Admin Acetaminophen 650 mg 05/02/25 09:57 05/03/25 20:15 Acetaminophen 325 Mg Tablet PO 650 mg Q4H PRN Administration Mild Pain (1-3) or Fever Apixaban 2.5 mg 05/02/25 21:00 05/04/25 08:24 Apixaban 2.5 Mg Tablet PO 2.5 mg Q12HR BERNARDA Administration Aspirin 81 mg 05/03/25 09:00 05/04/25 08:24 Aspirin 81 Mg Enteric Tablet PO 81 mg QAM BERNARDA Administration Diltiazem HCl 240 mg 05/02/25 16:00 05/04/25 08:25 Diltiazem Hcl Cd 240 Mg Cap.24hr BY MOUTH 240 mg DAILY BERNARDA Administration Fish Oil 1 gm 05/03/25 09:00 05/04/25 08:24 [place] 3 Polyunsat Fatty Acids 1 Gm Cap PO 1 gm DAILY BERNARDA Administration Doxycycline Hyclate 100 mg in 100 mls @ 100 mls/hr 05/02/25 21:00 05/04/25 08:26 Vibramycin 100 Mg/Ns 100 Ml IVPB 100 mls/hr Q12H BERNARDA Administration Ceftriaxone Sodium 2 gm in 100 mls @ 200 mls/hr 05/03/25 09:00 05/04/25 08:25 Rocephin 2 Gm/Ns 100 Ml IVPB 200 mls/hr Q24H BERNARDA Administration Ipratropium [employer] 0.5 mg 05/03/25 20:00 05/04/25 15:39 Ipratropium Br 0.02% Inh Soln 0.5 Mg/2.5 Ml Vial INHALATION 0.5 mg Q6HRT BERNARDA Administration Magnesium Gluconate 27 mg 05/03/25 09:00 05/04/25 08:24 Magnesium 27 Mg Tablet (500 Mg Mag Gluconate) PO 27 mg DAILY BERNARDA Administration Metoprolol Tartrate 50 mg 05/02/25 21:00 05/04/25 08:25 Metoprolol Tartrate 50 Mg Tab BY MOUTH 50 mg Q12HR BERNARDA Administration Perflutren Lipid Microsphere 0 ml 05/03/25 15:21 Perflutren Lipid Microspheres 1.5 Ml Vial Diluted To 10 Ml Total Volume IV PUSH 05/06/25 15:21 ONCE PRN adequate visualization Protocol Radiology Results: ITS Impressions Chest X-Ray 05/02/25 08:39 IMPRESSION: 1. Mild bibasilar opacities and favor persistent atelectasis/scarring over pneumonia. Chest CT 05/02/25 11:03 IMPRESSION: 1. Bronchitis and mucous plugging in the right middle and lower lobes with more focal small region of pneumonia at the posterior basilar right lower lobe. Labs Labs: Laboratory Results - last 24 hr 05/04/25 05/04/25 03:34 03:35 WBC 13.2 H RBC 4.94 Hgb 15.3 Hct 46.9 MCV 94.9 MCH 31.0 MCHC 32.6 RDW 14.2 Plt Count 164 MPV 11.8 H Immature Gran % (Auto) 0.5 Neut % (Auto) 65.2 Lymph % (Auto) 17.5 L Brooke % (Auto) 11.2 H Eos % (Auto) 5.0 H Baso % (Auto) 0.6 Lymph # (Auto) 2.31 Brooke # (Auto) 1.5 H Eos # (Auto) 0.7 H Baso # (Auto) 0.1 Abs Immat Gran (auto) 0.07 H Absolute Neuts (auto) 8.6 H Absolute Nucleated RBC 0.000 Nucleated RBC % 0.0 Sodium 136 L Potassium 4.0 Chloride 105 Carbon Dioxide 23 Anion Gap 8 BUN 23 H Creatinine 0.94 Estim Creat Clear Calc 55 Estimated GFR > 60 Glucose 98 Calcium 8.7 Magnesium 1.9 Total Bilirubin 1.1 AST 42 ALT 41 Alkaline Phosphatase 81 Total Protein 7.0 Albumin 3.4 L Procalcitonin 0.1
[2025-05-04] MEDS: ACETAMINOPHEN 325 MG TABLET 650 MG PO (20:30)
[2025-05-05] VITALS (19 sets, daily range): BP systolic 130–160; BP diastolic 86–88; PULSE 81–145; RESP 18–20; TEMP 36.5–36.8; O2SAT 92–95
[2025-05-05] MEDS: IPRATROPIUM BR 0.02% INH SOLN 0.5 MG/2.5 ML VIAL INHALATION ×2 (02:20→08:30)
--- NOTE | 2025-05-05 04:13 | PC.NURSE ---
I have reviewed Tanya's assessment of the pt. and Tanya's charting and agree with Tanya's charting and assessment of pt.
[2025-05-05 05:02] LABS: Hematocrit 47.2 % (42.0-52.0); Hemoglobin 15.5 g/dL (14.0-18.0); Mean Corpuscular HGB Conc 32.8 g/dl (32-36); Mean Corpuscular Hemoglobin 31.1 pg (26-34); Mean Corpuscular Volume 94.6 fl (80-100); Mean Platelet Volume 11.7 fl (7.4-10.4); Platelet Count Result 188 k/mm3 (150-375); Red Blood Count 4.99 M/mm3 (4.6-6.20); Red Cell Distribution Width 14.2 % (11.5-14.5); White Blood Count 12.7 K/mm3 (4.5-10.0)
[2025-05-05 05:15] LABS: Anion Gap 9 mmol/L (4-12); Blood Urea Nitrogen 23 mg/dL (9-20); Calcium 8.8 mg/dL (8.4-10.2); Carbon Dioxide 24 mmol/L (22-30); Chloride 102 mmol/L (98-107); Estimated CRCL calculation 59 ml/min; Estimated Glomerular Filt Rate > 60; Glucose 77 mg/dL (65-110); Potassium 4.2 mmol/L (3.4-5.0); Sodium 135 mmol/L (137-145)
[2025-05-05] MEDS: DOXYCYCLINE 100 MG/NS 100 ML 100 MG/100 ML BAG IVPB ×2 (08:27→20:56)
[2025-05-05] MEDS: cefTRIAXone 2 GM/NS 100 ML 2 GM/100 ML BAG IVPB (08:28)
[2025-05-05] MEDS: OMEGA 3 POLYUNSAT FATTY ACIDS 1 GM CAP PO (08:29)
[2025-05-05] MEDS: APIXABAN 2.5 MG TABLET PO ×2 (08:29→20:55)
[2025-05-05] MEDS: ASPIRIN 81 MG ENTERIC TABLET PO (08:29)
[2025-05-05] MEDS: dilTIAZem HCL CD 240 MG CAP.24HR BY MOUTH (08:29)
[2025-05-05] MEDS: MAGNESIUM 27 MG TABLET (500 MG MAG GLUCONATE) PO (08:29)
[2025-05-05] MEDS: METOPROLOL TARTRATE 50 MG TAB BY MOUTH (08:29)
--- NOTE | 2025-05-05 11:10 | P.PNPL_ITS ---
Progress Note: A&P Assessment and Plan (1) Pneumonia: Code(s): J18.9 - Pneumonia, unspecified organism Status: Acute Assessment and Plan: Patient carries a diagnosis of COPD, psoriatic arthritis on Humira since 2017 and presents with 14 days of cough and phlegm and 10 days of shortness of breath with a leukocytosis, new oxygen requirements and a CT scan with right lower lobe pneumonia. There is mucus in the airway but no pedro mucus plugging as there is no lobar collapse or segmental consolidation. Plan: Agree with continuation of ceftriaxone and doxycycline, both day 2. Patient does have a hard time coughing up his phlegm and I will add guaifenesin 1200 mg p.o. b.i.d., a Cornet flutter valve. I will send a sputum for bacterial culture, urine for Legionella, urine for pneumococcal, serum IgM and a respiratory pathogen panel looking for etiology of his pneumonia. No history of aspiration, loss of consciousness or seizures and I will discontinue Flagyl. 05/04/2025: The patient tells me he is improved. States he is 60-65% back to his baseline. His cough is 80% improved. Minimal phlegm production and no hemoptysis. He is afebrile. White blood cell count 13.2, creatinine 0.94. When I enter the room he was on 3 L with saturations 94%. I decreased him to room air and after 7 minutes his saturations were 89%. I placed him on 1 L nasal cannula saturations were 91%. Plan: Will continue ceftriaxone and doxycycline, both day 3. Continue guaifenesin, Cornet flutter valve and ipratropium nebulizers. urine for Legionella, urine for pneumococcal, serum IgM and a respiratory pathogen panel looking for etiology of his pneumonia all pending. 05/05/2025: Patient continues to improve. States his breathing is 70% back to his normal. States his cough is at his normal, he is producing more phlegm than usual. When he walks to the bathroom is dyspnea on exertion is 85% back to his normal. he is afebrile. White blood cell count 12.7, creatinine 0.87. When I enter the room he was on 1 L nasal cannula saturations 94%. I placed him on room air and his saturations were 92%. Plan: Will continue ceftriaxone and doxycycline, both day 4. Continue guaifenesin, Cornet flutter valve and ipratropium nebulizers. urine for Legionella, urine for pneumococcal, serum IgM and a respiratory pathogen panel looking for etiology of his pneumonia all pending. If patient remains clinically stable will consider discharge tomorrow on these pulmonary medications: Levofloxacin 750 mg p.o. q.day times 5 days Incruse Ellipta 62.5 at 1 puff q.day Rescue levalbuterol 2 puffs q.4 hours p.r.n. shortness of breath or wheezing oxygen per home O2 assessment on day of discharge. Oxygen when he naps or sleeps as guided by overnight oximetry on 2 L nasal cannula. Discussed with Dr. Cortés, will follow with you. (2) COPD (chronic obstructive pulmonary disease): Code(s): J44.9 - Chronic obstructive pulmonary disease, unspecified Status: Acute Assessment and Plan: Patient with a 54 pack year tobacco use, quit 2013. He has daily marijuana use at 12-15 inhalations a day for the last 20 years. 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 I have no PFTs. There is no apical predominant centrilobular emphysema on his CT scan. He presented with an eosinophil count of 329 per micro L. he has no wheezing. Plan: I do not believe patient is having a COPD exacerbation. There is no n eed for inhaled or systemic steroids at this point. Patient was maintained on Symbicort and albuterol p.r.n. at home and is placed on Advair at this time. I will discontinue the Advair. He has AFib with RVR and I will place him on ipratropium nebulizers q.6 hours. Goal saturation 90-94%. Adjust oxygen accordingly. 05/04/25: No wheezing. currently on 1 L. Plan: Continue ipratropium nebulizers q.6 hours. Goal saturation 90-94% and adjust oxygen accordingly. Currently on 1 L. I will perform overnight oximetry on room air tonight. 05/05/2025: No wheezing. Currently on room air. Plan: I will discontinue ipratropium nebulizers and place him on Incruse inhaler. (3) Obstructive sleep apnea (adult) (pediatric): Code(s): G47.33 - Obstructive sleep apnea (adult) (pediatric) Status: Acute Assessment and Plan: Patient tells me he had a sleep study 2-3 years ago and he was prescribed a CPAP mask and he tried 3 different mask but was unable to tolerate any of them. Plan: Prior to discharge will perform overnight oximetry to assess patient's oxygen requirements at night. If he is interested in attempting CPAP, or being evaluated for a dental appliance or the hypoglossal nerve stimulator will need an outpatient sleep study. 05/04/25: The patient tells me he will not be able to tolerate a CPAP mask. Plan: I will obtain overnight oximetry on room air to see if he requires oxygen at night. I have explained to him that if he is interested in CPAP, dental appliance or hypoglossal nerve stimulator he will need an outpatient sleep study at this time he declines. 05/05/25: Patient had an overnight oximetry on room air with recording duration of 3 hours and 20 minutes. Average saturation 90%. Low saturation 81%. Time with saturation less than or equal to 88% was 54 minutes. Oxygen desaturation index 28.3. Patient told me he did not sleep much last night. Plan: Patient does qualify for supplemental oxygen at night. I will perform an overnight oximetry on 2 L nasal cannula tonight. Subjective Date/time seen: 05/05/25 11:10 Interval history: 05/03/2025: This is a new pulmonary consult for mucus plugging. 79-year-old with a history of atrial fibrillation on Eliquis, COPD, hypertension, obstructive sleep apnea, psoriatic arthropathy on Humira, Pulmonary nodules. Regarding his COPD patient Smoked from 1960 to 2013 at 1 pack per day for 54 pack year. Patient smokes daily marijuana at 12-15 inhalations for the last 20 years. Patient was exposed to secondhand smoke from his father. 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 He denies vaping, he tried cocaine a few times and denies inhalation of methamphetamine. Patient tells me he has never had PFTs. Maintained on Symbicort and albuterol. Not on any supplemental oxygen. Currently tells me when he is feeling well he walked 3-4 blocks and then has to stop for shortness of breath. One year ago he could walk 6-7 blocks. Regarding his pulmonary nodules patient had a PET scan on 09/12/2023 with a stable 8 mm nodule left upper lobe without FDG activity. No enlarged thoracic lymph nodes. Low-dose CT scan on 02/18/2025 with lung rads 2, recommend follow-up in 12 months. Regarding his obstructive sleep apnea he tells me he had a sleep study 2-3 years ago and was prescribed a CPAP mask and he tried 6 3 CPAP mask but was unable to tolerate them. 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 On 05/02/2025 patient presented to the emergency room with Fourteen day history of cough and phlegm production, 10 day history of shortness of breath at rest and worsening dyspnea on exertion. He denied pedro fevers. No hemoptysis and no chest pain. He was found to be in AFib RVR with a heart rate of 134. Rest room air saturation 96%. White blood cell count 15.7, eosinophils 2.1, creatinine 1.02, BNP 4230, troponins negative x3. CT scan of the chest showed right lower lobe pneumonia with mucus in the airways but no lobar collapse. There is no apical predominant centrilobular Emphysema. Patient was treated with ceftriaxone and azithromycin. Advair 115-21 at 2 puffs q.12 hours, azithromycin was changed to doxycycline. 05/03/2025: Today the patient tells me he has improved and his breathing is 50% back to normal, his cough is 60% back to normal and his phlegm is more easily expectorated. White blood cell count 17.2, creatinine 0.90. Patient is on 2 L nasal cannula saturations 92%. His weight is 78 kg with an admission weight of 78.1 kg. 05/04/2025: The patient tells me he is improved. States he is 60-65% back to his baseline. His cough is 80% improved. Minimal phlegm production and no hemoptysis. He is afebrile. White blood cell count 13.2, creatinine 0.94. When I enter the room he was on 3 L with saturations 94%. I decreased him to room air and after 7 minutes his saturations were 89%. I placed him on 1 L n sundar cannula saturations were 91%. 05/05/2025: Patient continues to improve. States his breathing is 70% back to his normal. States his cough is at his normal, he is producing more phlegm than usual. When he walks to the bathroom is dyspnea on exertion is 85% back to his normal. he is afebrile. White blood cell count 12.7, creatinine 0.87. When I enter the room he was on 1 L nasal cannula saturations 94%. I placed him on room air and his saturations were 92%. Patient had an overnight oximetry on room air with recording duration of 3 hours and 20 minutes. Average saturation 90%. Low saturation 81%. Time with saturation less than or equal to 88% was 54 minutes. Oxygen desaturation index 28.3. Patient told me he did not sleep much last night. DATA: 05/02/25: EXAMINATION: CT diagnostic chest wo con INDICATION: Pneumonia COMPARISON: None FINDINGS: There is linear discoid atelectasis in the dependent aspect bilateral lower lobes. There is bronchial wall thickening, mucous plugging and small region of groundglass opacity and consolidation at the posterior medial right lung base suspicious for superimposed pneumonia. There are some additional bronchial wall thickening and mucous plugging in the right middle lobe but without more peripheral airspace disease. No pulmonary edema or pleural effusion. Heart size is normal. Atherosclerotic coronary artery calcifications and aortic valve calcification. Thoracic aorta is normal in caliber. No pathologically enlarged thoracic lymphadenopathy. Severe thoracic spondylosis. Visualized upper abdomen is unremarkable. IMPRESSION: 1. Bronchitis and mucous plugging in the right middle and lower lobes with more focal small region of pneumonia at the posterior basilar right lower lobe. 02/18/25: CT Scan of the Chest without Contrast: Clinical Indication: Lung cancer screening, nicotine dependence COMPARISON: 05/31/2023 Findings: There is no evidence of any significant mediastinal, hilar or axillary lymphadenopathy. There are atherosclerotic calcifications of the aorta and coronary arteries. There is no evidence of pleural or pericardial effusion. Left upper lobe granuloma noted. Stable tiny right middle lobe nodules. Images through the upper abdomen reveal no abnormalities. Impression: Lung RADS 2: Benign appearance. 12 month follow-up screening CT advised. 09/12/2023: EXAMINATION: PET skull to mid thigh DATE: 09/12/2023 14:13 INDICATION: Lung nodule TECHNIQUE: Blood glucose level was 97 mg/dL. 9.060 mCi of 18-fluorodeoxyglucose (18-FDG) was administered i.v. Low dose computed tomography (CT) images were acquired from the base of the brain to the proximal thighs for attenuation correction and anatomic localization. Positron emission tomography (PET) images were acquired in the same distribution beginning 58 minutes after injection. The dose-length product (DLP) was 1086.14 mGy-cm. COMPARISON: CTs dated 05/31/2023 and 05/08/2022 FINDINGS: Head/neck: No abnormal FDG uptake is identified. FDG activity in the extraocular muscles, optic nerves, and vocal cords, without suspicious CT correlate, is likely physiologic. There is partial opacification of the left maxillary sinus. Chest: No abnormal FDG uptake is identified. There is a stable 8 mm nodule of the left upper lobe without associated FDG activity. No pathologically enlarged thoracic lymph nodes are identified. The heart size is normal. No pleural effusion or pneumothorax. The lungs are free of acute opacities. There is mild dependent atelectasis. Calcified coronary artery atherosclerosis is noted. There is slightly decreased FDG uptake in the left ventricular apex which could reflect prior myocardial infarction. Abdomen/pelvis/proximal thighs: No abnormal FDG uptake is identified. Physiologic FDG activity is present in the bowel and urinary tract. The liver, spleen, and adrenal glands are normal. Punctate calcifications of the prostate consistent with chronic pancreatitis. Stones are present in the nondistended gallbladder. No pathologically enlarged abdominal or pelvic lymph nodes are identified. No free intraperitoneal gas or evidence of bowel obstruction. There is an umbilical hernia containing fat. Musculoskeletal: No abnormal FDG uptake is identified. There is severe cervical, thoracic, and lumbar spondylosis. Osteoarthritis is also noted in the shoulders. IMPRESSION: 1. Pulmonary nodule without associated FDG uptake, consistent with a benign nodule. Review of Systems Constitutional: Constitutional: Reports no additional constitutional complaints Eyes: Eyes: Reports no additional eye complaints ENT: Reports system reviewed and no additional complaints, except as documented Cardiovascular: Cardiovascular: Reports no additional cardiovascular complaints Respiratory: Respiratory: Reports no additional respiratory complaints Gastrointestinal: Gastrointestinal: Reports no additional gastrointestinal complaints Musculoskeletal: Musculoskeletal: Reports no additional musculoskeletal complaints Neurologic: Reports system reviewed and no additional complaints, except as documented Psychiatric: Psychiatric: Reports no additional psychiatric complaints Endocrine: Endocrine: Reports no additional endocrine complaints Hematologic/Lymphatic: Hematologic/Lymphatic: Reports no additional hematologic/lymphatic complaints Allergic/Immunologic: Allergic/Immunologic: Reports no additional allergic/immunologic complaints Exam Const: General: cooperative, healthy appearing and comfortable Orientation/consciousness: oriented to person, oriented to place and oriented to time HENMT: Head: normal to inspection Ears: hearing grossly normal bilaterally Eyes: General: appearance normal, both eyes and all related structures Neck: Neck: normal visual inspection Chest: Chest palpation & inspection: normal inspection of the chest Resp: Effort & Inspection: normal respiratory effort and able to speak in complete sentences Auscultation: no crackles, no rales, no rhonchi, no wheezes and lung sounds not diminished Cardio: Jugular venous distension: no JVD GI: Inspection: normal to inspection Skin: General skin exam: normal color Other: some skin plaques Neuro: General: oriented to person, oriented to place and oriented to time Extrem: General: normal to inspection and no edema Psych: Appearance: grossly normal Objective Data Vital Signs Vital Signs: Vital Signs - 24 hr 05/04/25 11:23 05/04/25 12:00 05/04/25 12:00 Temperature 36.6 C Pulse Rate 93 104 H Respiratory Rate 20 Blood Pressure 129/70 Pulse Oximetry 93 92 Oxygen Delivery Nasal Cannula Oxygen Flow Rate 1 05/04/25 12:38 05/04/25 15:30 05/04/25 15:40 Temperature 36.9 C Pulse Rate 87 93 Respiratory Rate 22 H 20 Blood Pressure 142/75 H Pulse Oximetry 95 Oxygen Delivery Nasal Cannula Oxygen Flow Rate 1 05/04/25 16:00 05/04/25 20:00 05/04/25 20:20 Temperature Pulse Rate 89 Respiratory Rate Blood Pressure Pulse Oximetry 93 93 Oxygen Delivery Nasal Cannula Nasal Cannula Oxygen Flow Rate 1 1 05/04/25 20:21 05/04/25 20:30 05/04/25 20:30 Temperature Pulse Rate 111 H 120 H 108 H Respiratory Rate 20 20 Blood Pressure Pulse Oximetry Oxygen Delivery Oxygen Flow Rate 05/04/25 20:38 05/04/25 21:27 05/04/25 22:20 Temperature 36.9 C Pulse Rate 111 H 129 H Respiratory Rate 22 H Blood Pressure 144/80 H Pulse Oximetry 93 93 Oxygen Delivery Room Air Oxygen Flow Rate 05/04/25 22:31 05/04/25 23:53 05/05/25 00:00 Temperature 36.8 C Pulse Rate 82 86 88 Respiratory Rate 22 H Blood Pressure Pulse Oximetry 92 Oxygen Delivery Oxygen Flow Rate 05/05/25 02:05 05/05/25 02:22 05/05/25 02:34 Temperature Pulse Rate 101 H 84 83 Respiratory Rate 20 20 Blood Pressure Pulse Oximetry Oxygen Delivery Oxygen Flow Rate 05/05/25 05:29 05/05/25 07:35 05/05/25 08:00 Temperature 36.8 C Pulse Rate 82 118 H Respiratory Rate 20 Blood Pressure 160/87 H Pulse Oximetry 93 94 Oxygen Delivery Room Air Oxygen Flow Rate 05/05/25 08:29 05/05/25 08:32 05/05/25 08:32 Temperature Pulse Rate 141 H 129 H Respiratory Rate 20 Blood Pressure Pulse Oximetry 92 Oxygen Delivery Room Air Oxygen Flow Rate 05/05/25 08:40 05/05/25 09:48 Temperature Pulse Rate 138 H 107 H Respiratory Rate 20 Blood Pressure Pulse Oximetry Oxygen Delivery Oxygen Flow Rate Intake/Output Intake/Output: Intake & Output 05/02/25 05/03/25 05/04/25 05/05/25 23:59 23:59 23:59 23:59 Intake Total 1040.8 1790 2010 770 Output Total 1051 650 550 Balance 1040.8 739 1360 220 Meds/Results Medications: Active Medications Generic Name Dose Route Start Last Admin Trade Name Freq PRN Reason Stop Dose Admin Acetaminophen 650 mg 05/02/25 09:57 05/04/25 20:30 Acetaminophen 325 Mg Tablet PO 650 mg Q4H PRN Administration Mild Pain (1-3) or Fever Apixaban 2.5 mg 05/02/25 21:00 05/05/25 08:29 Apixaban 2.5 Mg Tablet PO 2.5 mg Q12HR BERNARDA Administration Aspirin 81 mg 05/03/25 09:00 05/05/25 08:29 Aspirin 81 Mg Enteric Tablet PO 81 mg QAM BERNARDA Administration Diltiazem HCl 240 mg 05/02/25 16:00 05/05/25 08:29 Diltiazem Hcl Cd 240 Mg Cap.24hr BY MOUTH 240 mg DAILY BERNARDA Administration Fish Oil 1 gm 05/03/25 09:00 05/05/25 08:29 Shiner 3 Polyunsat Fatty Acids 1 Gm Cap PO 1 gm DAILY BERNARDA Administration Doxycycline Hyclate 100 mg in 100 mls @ 100 mls/hr 05/02/25 21:00 05/05/25 08:27 Vibramycin 100 Mg/Ns 100 Ml IVPB 100 mls/hr Q12H BERNARDA Administration Ceftriaxone Sodium 2 gm in 100 mls @ 200 mls/hr 05/03/25 09:00 05/05/25 08:28 Rocephin 2 Gm/Ns 100 Ml IVPB 200 mls/hr Q24H BERNARDA Administration Ipratropium [place] 0.5 mg 05/03/25 20:00 05/05/25 08:30 Ipratropium Br 0.02% Inh Soln 0.5 Mg/2.5 Ml Vial INHALATION 0.5 mg Q6HRT BERNARDA Administration Magnesium Gluconate 27 mg 05/03/25 09:00 05/05/25 08:29 Magnesium 27 Mg Tablet (500 Mg Mag Gluconate) PO 27 mg DAILY BERNARDA Administration Metoprolol Succinate 100 mg 05/05/25 21:00 Metoprolol Succinate Ext Rel 100 Mg Tabcr PO QHS BERNARDA Perflutren Lipid Microsphere 0 ml 05/03/25 15:21 Perflutren Lipid Microspheres 1.5 Ml Vial Diluted To 10 Ml Total Volume IV PUSH 05/06/25 15:21 ONCE PRN adequate visualization Protocol Radiology Results: ITS Impressions Chest X-Ray 05/02/25 08:39 IMPRESSION: 1. Mild bibasilar opacities and favor persistent atelectasis/scarring over pneumonia. Chest CT 05/02/25 11:03 IMPRESSION: 1. Bronchitis and mucous plugging in the right middle and lower lobes with more focal small region of pneumonia at the posterior basilar right lower lobe. Labs Labs: Laboratory Results - last 24 hr 05/05/25 03:41 WBC 12.7 H RBC 4.99 Hgb 15.5 Hct 47.2 MCV 94.6 MCH 31.1 MCHC 32.8 RDW 14.2 Plt Count 188 MPV 11.7 H Sodium 135 L Potassium 4.2 Chloride 102 Carbon Dioxide 24 Anion Gap 9 BUN 23 H Creatinine 0.87 Estim Creat Clear Calc 59 Estimated GFR > 60 Glucose 77 Calcium 8.8
[2025-05-05 15:33] LABS: Alpha-1-Antitrypsin, QN 204 mg/dL (83-199)
--- NOTE | 2025-05-05 15:58 | PM.IMPN ---
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 Rojas, patient clinical symptoms and oxygen requirements are improving however patient HR is tachy in the morning in 150s, patient is currently taking metoprolol tartrate 50mg BID and diltiazem 240mg qd, will stop metoprolol 50mg tartrate and switch to metoprolol succinate 100mg qhs, may help with rate in the morning, discussed with pharmacy and agrees, will monitor. , Afib RVR, rate controlled Patient has a history of Afib TSH WNL, ECHO currently on home Cardizem and Metoprolol Titrate off Cardizem infusion On Eliquis monitor Pneumonia CT Chest showed mucus plug with posterior basilar right lower lobe MRSA negative Blood culture ordered On Rocephin, Flagyl and Doxycycline Pulmonology consulted monitor Acute hypoxemic respiratory failure on 2 liters oxygen titrate oxygen Hypertension Titrate home meds with clinical course DVT prophylaxis on Eliquis Full code Subjective Date/time seen: 05/05/25 15:58 Interval history: Comfortable at bedside CT Chest showed mucus plug with posterior basilar right lower lobe Flagyl added Patient with shortness of breath was found to have bronchitis and mucous plugging in the right middle and lower lobes with more focal small region of pneumonia at the posterior basilar right lower lobe with underlining COPD, 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 Rojas, patient clinical symptoms and oxygen requirements are improving however patient HR is tachy in the morning in 150s, patient is currently taking metoprolol tartrate 50mg BID and diltiazem 240mg qd, will stop metoprolol 50mg tartrate and switch to metoprolol succinate 100mg qhs, may help with rate in the morning, discussed with pharmacy and agrees, will monitor. Review of Systems Review of Systems: All other systems were reviewed and negative except as noted in the HPI above Exam Narrative: Patient is comfortable, NAD HEENT: eyes are clear and none icteric LUNGS: Bilateral fair entry with rhonchi HEART: RR S1S2 ABD: BS+, Soft and nontender Lower extremities: no edema SKIN: nonjaundiced Neuro: grossly intact. Objective Data Vital Signs Vital Signs: Vital Signs - 24 hr 05/04/25 16:00 05/04/25 20:00 05/04/25 20:20 Temperature Pulse Rate 89 Respiratory Rate Blood Pressure Pulse Oximetry 93 93 Oxygen Delivery Nasal Cannula Nasal Cannula Oxygen Flow Rate 1 1 05/04/25 20:21 05/04/25 20:30 05/04/25 20:30 Temperature Pulse Rate 111 H 120 H 108 H Respiratory Rate 20 20 Blood Pressure Pulse Oximetry Oxygen Delivery Oxygen Flow Rate 05/04/25 20:38 05/04/25 21:27 05/04/25 22:20 Temperature 36.9 C Pulse Rate 111 H 129 H Respiratory Rate 22 H Blood Pressure 144/80 H Pulse Oximetry 93 93 Oxygen Delivery Room Air Oxygen Flow Rate 05/04/25 22:31 05/04/25 23:53 05/05/25 00:00 Temperature 36.8 C Pulse Rate 82 86 88 Respiratory Rate 22 H Blood Pressure Pulse Oximetry 92 Oxygen Delivery Oxygen Flow Rate 05/05/25 02:05 05/05/25 02:22 05/05/25 02:34 Temperature Pulse Rate 101 H 84 83 Respiratory Rate 20 20 Blood Pressure Pulse Oximetry Oxygen Delivery Oxygen Flow Rate 05/05/25 05:29 05/05/25 07:35 05/05/25 08:00 Temperature 36.8 C Pulse Rate 82 118 H Respiratory Rate 20 Blood Pressure 160/87 H Pulse Oximetry 93 94 Oxygen Delivery Room Air Oxygen Flow Rate 05/05/25 08:00 05/05/25 08:29 05/05/25 08:32 Temperature Pulse Rate 145 H 141 H Respiratory Rate Blood Pressure Pulse Oximetry 92 Oxygen Delivery Room Air Oxygen Flow Rate 05/05/25 08:32 05/05/25 08:40 05/05/25 09:48 Temperature Pulse Rate 129 H 138 H 107 H Respiratory Rate 20 20 Blood Pressure Pulse Oximetry Oxygen Delivery Oxygen Flow Rate 05/05/25 12:30 05/05/25 15:56 Temperature 36.5 C Pulse Rate 90 86 Respiratory Rate 20 Blood Pressure 140/86 Pulse Oximetry 95 Oxygen Delivery Oxygen Flow Rate Intake/Output Intake/Output: Intake & Output 05/02/25 05/03/25 05/04/25 05/05/25 23:59 23:59 23:59 23:59 Intake Total 1040.8 1790 2010 1110 Output Total 1051 650 550 Balance 1040.8 739 1360 560 Meds/Results Medications: Active Medications Generic Name Dose Route Start Last Admin Trade Name Freq PRN Reason Stop Dose Admin Acetaminophen 650 mg 05/02/25 09:57 05/04/25 20:30 Acetaminophen 325 Mg Tablet PO 650 mg Q4H PRN Administration Mild Pain (1-3) or Fever Apixaban 2.5 mg 05/02/25 21:00 05/05/25 08:29 Apixaban 2.5 Mg Tablet PO 2.5 mg Q12HR BERNARDA Administration Aspirin 81 mg 05/03/25 09:00 05/05/25 08:29 Aspirin 81 Mg Enteric Tablet PO 81 mg QAM BERNARDA Administration Diltiazem HCl 240 mg 05/02/25 16:00 05/05/25 08:29 Diltiazem Hcl Cd 240 Mg Cap.24hr BY MOUTH 240 mg DAILY BERNARDA Administration Fish Oil 1 gm 05/03/25 09:00 05/05/25 08:29 [place] 3 Polyunsat Fatty Acids 1 Gm Cap PO 1 gm DAILY BERNARDA Administration Doxycycline Hyclate 100 mg in 100 mls @ 100 mls/hr 05/02/25 21:00 05/05/25 09:30 Vibramycin 100 Mg/Ns 100 Ml IVPB 05/05/25 23:59 Infused Q12H BERNARDA Infusion Ceftriaxone Sodium 2 gm in 100 mls @ 200 mls/hr 05/03/25 09:00 05/05/25 08:28 Rocephin 2 Gm/Ns 100 Ml IVPB 05/05/25 23:59 200 mls/hr Q24H BERNARDA Administration Levofloxacin 750 mg 05/06/25 09:00 Levofloxacin 750 Mg Tablet PO 05/10/25 09:01 DAILY BERNARDA Magnesium Gluconate 27 mg 05/03/25 09:00 05/05/25 08:29 Magnesium 27 Mg Tablet (500 Mg Mag Gluconate) PO 27 mg DAILY BERNARDA Administration Metoprolol Succinate 100 mg 05/05/25 21:00 Metoprolol Succinate Ext Rel 100 Mg Tabcr PO QHS [facility] Perflutren Lipid Microsphere 0 ml 05/03/25 15:21 Perflutren Lipid Microspheres 1.5 Ml Vial Diluted To 10 Ml Total Volume IV PUSH 05/06/25 15:21 ONCE PRN adequate visualization Protocol Umeclidinium [place] 1 puff 05/05/25 11:15 05/05/25 11:58 Umeclidinium [place] 62.5 Mcg Ellipta INHALATION Not Given DAILYRT [facility] Radiology Results: ITS Impressions Chest X-Ray 05/02/25 08:39 IMPRESSION: 1. Mild bibasilar opacities and favor persistent atelectasis/scarring over pneumonia. Chest CT 05/02/25 11:03 IMPRESSION: 1. Bronchitis and mucous plugging in the right middle and lower lobes with more focal small region of pneumonia at the posterior basilar right lower lobe. Labs Labs: Laboratory Results - last 24 hr 05/04/25 05/05/25 03:35 03:41 WBC 12.7 H RBC 4.99 Hgb 15.5 Hct 47.2 MCV 94.6 MCH 31.1 MCHC 32.8 RDW 14.2 Plt Count 188 MPV 11.7 H Sodium 135 L Potassium 4.2 Chloride 102 Carbon Dioxide 24 Anion Gap 9 BUN 23 H Creatinine 0.87 Estim Creat Clear Calc 59 Estimated GFR > 60 Glucose 77 Calcium 8.8 Qdiot-[id number]-Daopwjuitls 204 H
[2025-05-05 17:44] LABS: Magnesium 1.7 mg/dL (1.6-2.3)
--- NOTE | 2025-05-05 19:34 | PC.NURSE ---
This patient, Dickson Sorensen, was transferred to [[id number] ] on 05/05/25 at 1935. Personal belongings sent with patient. Report given to [Amparo pacheco ]. Appropriate documentation sent with patient.
--- NOTE | 2025-05-05 20:00 | PC.NURSE ---
1929 RECEIVED PT FROM IMU PER BED, VOICES NO C/O, TELEMETRY APPLIED
[2025-05-05] MEDS: METOPROLOL SUCCINATE EXT REL 100 MG TABCR PO (20:56)
[2025-05-06] VITALS (13 sets, daily range): BP systolic 137–165; BP diastolic 74–80; PULSE 72–152; RESP 16–20; TEMP 36.3–36.7; O2SAT 93–96
[2025-05-06 07:38] LABS: Hematocrit 48.8 % (42.0-52.0); Hemoglobin 16.4 g/dL (14.0-18.0); Mean Corpuscular HGB Conc 33.6 g/dl (32-36); Mean Corpuscular Hemoglobin 31.8 pg (26-34); Mean Corpuscular Volume 94.6 fl (80-100); Mean Platelet Volume 11.4 fl (7.4-10.4); Platelet Count Result 218 k/mm3 (150-375); Red Blood Count 5.16 M/mm3 (4.6-6.20); Red Cell Distribution Width 14.1 % (11.5-14.5); White Blood Count 12.1 K/mm3 (4.5-10.0)
[2025-05-06] MEDS: UMECLIDINIUM BROMIDE 62.5 MCG ELLIPTA 1 PUFF INHALATION (07:50)
[2025-05-06 07:55] LABS: Anion Gap 6 mmol/L (4-12); Blood Urea Nitrogen 25 mg/dL (9-20); Carbon Dioxide 26 mmol/L (22-30); Chloride 102 mmol/L (98-107); Estimated CRCL calculation 48 ml/min; Estimated Glomerular Filt Rate > 60; Glucose 89 mg/dL (65-110); Potassium 4.5 mmol/L (3.4-5.0); Sodium 134 mmol/L (137-145)
[2025-05-06] MEDS: dilTIAZem HCL CD 240 MG CAP.24HR BY MOUTH (09:21)
[2025-05-06] MEDS: ACIDOPHILUS/BULGARICUS CHEWABLE TABLET 1 TABLET BY MOUTH (09:21)
[2025-05-06] MEDS: ASPIRIN 81 MG ENTERIC TABLET PO (09:21)
[2025-05-06] MEDS: APIXABAN 2.5 MG TABLET PO ×2 (09:21→20:19)
[2025-05-06] MEDS: CYANOCOBALAMIN 500 MCG TABLET PO (09:21)
[2025-05-06] MEDS: OMEGA 3 POLYUNSAT FATTY ACIDS 1 GM CAP PO (09:22)
[2025-05-06] MEDS: MAGNESIUM 27 MG TABLET (500 MG MAG GLUCONATE) PO (09:22)
[2025-05-06] MEDS: MULTIVITAMINS THERAPEUTIC TAB (*BKC) 1 TABLET PO (09:22)
[2025-05-06] MEDS: levoFLOXacin 750 MG TABLET PO (09:22)
--- NOTE | 2025-05-06 10:11 | P.PNPL_ITS ---
Progress Note: A&P Assessment and Plan (1) Pneumonia: Code(s): J18.9 - Pneumonia, unspecified organism Status: Acute Assessment and Plan: Patient carries a diagnosis of COPD, psoriatic arthritis on Humira since 2017 and presents with 14 days of cough and phlegm and 10 days of shortness of breath with a leukocytosis, new oxygen requirements and a CT scan with right lower lobe pneumonia. There is mucus in the airway but no pedro mucus plugging as there is no lobar collapse or segmental consolidation. Plan: Agree with continuation of ceftriaxone and doxycycline, both day 2. Patient does have a hard time coughing up his phlegm and I will add guaifenesin 1200 mg p.o. b.i.d., a Cornet flutter valve. I will send a sputum for bacterial culture, urine for Legionella, urine for pneumococcal, serum IgM and a respiratory pathogen panel looking for etiology of his pneumonia. No history of aspiration, loss of consciousness or seizures and I will discontinue Flagyl. 05/04/2025: The patient tells me he is improved. States he is 60-65% back to his baseline. His cough is 80% improved. Minimal phlegm production and no hemoptysis. He is afebrile. White blood cell count 13.2, creatinine 0.94. When I enter the room he was on 3 L with saturations 94%. I decreased him to room air and after 7 minutes his saturations were 89%. I placed him on 1 L nasal cannula saturations were 91%. Plan: Will continue ceftriaxone and doxycycline, both day 3. Continue guaifenesin, Cornet flutter valve and ipratropium nebulizers. urine for Legionella, urine for pneumococcal, serum IgM and a respiratory pathogen panel looking for etiology of his pneumonia all pending. 05/05/2025: Patient continues to improve. States his breathing is 70% back to his normal. States his cough is at his normal, he is producing more phlegm than usual. When he walks to the bathroom is dyspnea on exertion is 85% back to his normal. he is afebrile. White blood cell count 12.7, creatinine 0.87. When I enter the room he was on 1 L nasal cannula saturations 94%. I placed him on room air and his saturations were 92%. Plan: Will continue ceftriaxone and doxycycline, both day 4. Continue guaifenesin, Cornet flutter valve and ipratropium nebulizers. urine for Legionella, urine for pneumococcal, serum IgM and a respiratory pathogen panel looking for etiology of his pneumonia all pending. 05/06/25: Patient continues to improve. Tells me he is breathing 98% back to his normal. His cough is normal and his phlegm is normal. He was on room air last night with saturations 94%. He wore 2 L nasal cannula overnight with an overnight oximetry with recording duration of 7 hours and 23 minutes. Average saturation 94%. Low saturation 82%. Time with saturation less than or equal to 88% was 2 minutes. Oxygen desaturation 15.8. His weight today is 73.5. States he feels well and is ready to go home. Patient was on Humira as an outpatient and I have told him not to take the Hu laverne until he has a repeat CT scan of the chest in 4-6 weeks to make sure that his right lower lobe pneumonia has resolved. From a pulmonary perspective patient is ready to be discharged on these pulmonary medications: Levofloxacin 750 mg p.o. q.day times 5 days Incruse Ellipta 62.5 at 1 puff q.day Rescue levalbuterol 2 puffs q.4 hours p.r.n. shortness of breath or wheezing Oxygen per home O2 assessment which I have ordered Oxygen when he naps or sleeps at 2 L nasal cannula. Follow-up with PCP. Patient should have outpatient CT scan in 4-6 weeks to document resolution of the right lower lobe pneumonia prior to initiating Humira. Discussed with Dr. Cortés, will sign off, call with questions. (2) COPD (chronic obstructive pulmonary disease): Code(s): J44.9 - Chronic obstructive pulmonary disease, unspecified Status: Acute Assessment and Plan: Patient with a 54 pack year tobacco use, quit 2013. He has daily marijuana use at 12-15 inhalations a day for the last 20 years. 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 I have no PFTs. There is no apical predominant centrilobular emphysema on his CT scan. He presented with an eosinophil count of 329 per micro L. He has no wheezing. Plan: I do not believe patient is having a COPD exacerbation. There is no need for inhaled or systemic steroids at this point. Patient was maintained on Symbicort and albuterol p.r.n. at home and is placed on Advair at this time. I will discontinue the Advair. He has AFib with RVR and I will place him on ipratropium nebulizers q.6 hours. Goal saturation 90-94%. Adjust oxygen accordingly. 05/04/25: No wheezing. currently on 1 L. Plan: Continue ipratropium nebulizers q.6 hours. Goal saturation 90-94% and adjust oxygen accordingly. Currently on 1 L. I will perform overnight oximetry on room air tonight. 05/05/2025: No wheezing. Currently on room air. Plan: I will discontinue ipratropium nebulizers and place him on Incruse inhaler. 05/06/25: continues to improve. No wheezing. Plan: I will do a home O2 assessment today. Patient should continue Incruse inhaler at home. Recommend outpatient PFTs. (3) Obstructive sleep apnea (adult) (pediatric): Code(s): G47.33 - Obstructive sleep apnea (adult) (pediatric) Status: Acute Assessment and Plan: Patient tells me he had a sleep study 2-3 years ago and he was prescribed a CPAP mask and he tried 3 different mask but was unable to tolerate any CPAP mask. Plan: Prior to discharge will perform overnight oximetry to assess patient's oxygen requirements at night. If he is interested in attempting CPAP, or being evaluated for a dental appliance or the hypoglossal nerve stimulator will need an outpatient sleep study. 05/04/25: The patient tells me he will not be able to tolerate a CPAP mask. Plan: I will obtain overnight oximetry on room air to see if he requires oxygen at night. I have explained to him that if he is interested in CPAP, dental appliance or hypoglossal nerve stimulator he will need an outpatient slee p study at this time he declines. 05/05/25: Patient had an overnight oximetry on room air with recording duration of 3 hours and 20 minutes. Average saturation 90%. Low saturation 81%. Time with saturation less than or equal to 88% was 54 minutes. Oxygen desaturation index 28.3. Patient told me he did not sleep much last night. Plan: Patient does qualify for supplemental oxygen at night. I will perform an overnight oximetry on 2 L nasal cannula tonight. 05/06/25: 05/06/25: He wore 2 L nasal cannula overnight with an overnight oximetry with recording duration of 7 hours and 23 minutes. Average saturation 94%. Low saturation 82%. Time with saturation less than or equal to 88% was 2 minutes. Oxygen desaturation 15.8. Plan: 2 L provides adequate oxygenation at night and he should continue this when he naps or sleeps. Subjective Date/time seen: 05/06/25 10:11 Interval history: 05/03/2025: This is a new pulmonary consult for mucus plugging. 79-year-old with a history of atrial fibrillation on Eliquis, COPD, hypertension, obstructive sleep apnea, psoriatic arthropathy on Humira, Pulmonary nodules. Regarding his COPD patient Smoked from 1960 to 2014 at 1 pack per day for 54 pack year. Patient smokes daily marijuana at 12-15 inhalations for the last 20 years. Patient was exposed to secondhand smoke from his father. 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 He denies vaping, he tried cocaine a few times and denies inhalation of methamphetamine. Patient tells me he has never had PFTs. Maintained on Symbicort and albuterol. Not on any supplemental oxygen. Currently tells me when he is feeling well he walked 3-4 blocks and then has to stop for shortness of breath. One year ago he could walk 6-7 blocks. Regarding his pulmonary nodules patient had a PET scan on 09/12/2023 with a stable 8 mm nodule left upper lobe without FDG activity. No enlarged thoracic lymph nodes. Low-dose CT scan on 02/18/2025 with lung rads 2, recommend follo w-up in 12 months. Regarding his obstructive sleep apnea he tells me he had a sleep study 2-3 years ago and was prescribed a CPAP mask and he tried 6 3 CPAP mask but was unable to tolerate them. 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 On 05/02/2025 patient presented to the emergency room with Fourteen day history of cough and phlegm production, 10 day history of shortness of breath at rest and worsening dyspnea on exertion. He denied pedro fevers. No hemoptysis and no chest pain. He was found to be in AFib RVR with a heart rate of 134. Rest room air saturation 96%. White blood cell count 15.7, eosinophils 2.1, creatinine 1.02, BNP 4230, troponins negative x3. CT scan of the chest showed right lower lobe pneumonia with mucus in the airways but no lobar collapse. There is no apical predominant centrilobular Emphysema. Patient was treated with ceftriaxone and azithromycin. Advair 115-21 at 2 puffs q.12 hours, azithromycin was changed to doxycycline. 05/03/2025: Today the patient tells me he has improved and his breathing is 50% back to normal, his cough is 60% back to normal and his phlegm is more easily expectorated. White blood cell count 17.2, creatinine 0.90. Patient is on 2 L nasal cannula saturations 92%. His weight is 78 kg with an admission weight of 78.1 kg. 05/04/2025: The patient tells me he is improved. States he is 60-65% back to his baseline. His cough is 80% improved. Minimal phlegm production and no hemoptysis. He is afebrile. White blood cell count 13.2, creatinine 0.94. When I enter the room he was on 3 L with saturations 94%. I decreased him to room air and after 7 minutes his saturations were 89%. I placed him on 1 L nasal cannula saturations were 91%. 05/05/2025: Patient continues to improve. States his breathing is 70% back to his normal. States his cough is at his normal, he is producing more phlegm than usual. When he walks to the bathroom is dyspnea on exertion is 85% back to his normal. he is afebrile. White blood cell count 12.7, creatinine 0.87. When I enter the room he was on 1 L nasal cannula saturations 94%. I placed him on room air and his saturations were 92%. Patient had an overnight oximetry on room air with recording duration of 3 hours and 20 minutes. Average saturation 90%. Low saturation 81%. Time with saturation less than or equal to 88% was 54 minutes. Oxygen desaturation index 28.3. Patient told me he did not sleep much last night. 05/06/25: Patient continues to improve. Tells me he is breathing 98% back to his normal. His cough is normal and his phlegm is normal. He was on room air last night with saturations 94%. He wore 2 L nasal cannula overnight with an overnight oximetry with recording duration of 7 hours and 23 minutes. Average saturation 94%. Low saturation 82%. Time with saturation less than or equal to 88% was 2 minutes. Oxygen desaturation 15.8. His weight today is 73.5. States he feels well and is ready to go home. DATA: 05/02/25: EXAMINATION: CT diagnostic chest wo con INDICATION: Pneumonia COMPARISON: None FINDINGS: There is linear discoid atelectasis in the dependent aspect bilateral lower lobes. There is bronchial wall thickening, mucous plugging and small region of groundglass opacity and consolidation at the posterior medial right lung base suspicious for superimposed pneumonia. There are some additional bronchial wall thickening and mucous plugging in the right middle lobe but without more peripheral airspace disease. No pulmonary edema or pleural effusion. Heart size is normal. Atherosclerotic coronary artery calcifications and aortic valve calcification. Thoracic aorta is normal in caliber. No pathologically enlarged thoracic lymphadenopathy. Severe thoracic spondylosis. Visualized upper abdomen is unremarkable. IMPRESSION: 1. Bronchitis and mucous plugging in the right middle and lower lobes with more focal small region of pneumonia at the posterior basilar right lower lobe. 02/18/25: CT Scan of the Chest without Contrast: Clinical Indication: Lung cancer screening, nicotine dependence COMPARISON: 05/31/2023 Findings: There is no evidence of any significant mediastinal, hilar or axillary lymphadenopathy. There are atherosclerotic calcifications of the aorta and coronary arteries. There is no evidence of pleural or pericardial effusion. Left upper lobe granuloma noted. Stable tiny right middle lobe nodules. Images through the upper abdomen reveal no abnormalities. Impression: Lung RADS 2: Benign appearance. 12 month follow-up screening CT advised. 09/12/2023: EXAMINATION: PET skull to mid thigh DATE: 09/12/2023 14:13 INDICATION: Lung nodule TECHNIQUE: Blood glucose level was 97 mg/dL. 9.060 mCi of 18-fluorodeoxyglucose (18-FDG) was administered i.v. Low dose computed tomography (CT) images were acquired from the base of the brain to the proximal thighs for attenuation correction and anatomic localization. Positron emission tomography (PET) images were acquired in the same distribution beginning 58 minutes after injection. The dose-length product (DLP) was 1086.14 mGy-cm. COMPARISON: CTs dated 05/31/2023 and 05/08/2022 FINDINGS: Head/neck: No abnormal FDG uptake is identified. FDG activity in the extraocular muscles, optic nerves, and vocal cords, without suspicious CT correlate, is likely physiologic. There is partial opacification of the left maxillary sinus. Chest: No abnormal FDG uptake is identified. There is a stable 8 mm nodule of the left upper lobe without associated FDG activity. No pathologically enlarged thoracic lymph nodes are identified. The heart size is normal. No pleural effusion or pneumothorax. The lungs are free of acute opacities. There is mild dependent atelectasis. Calcified coronary artery atherosclerosis is noted. There is slightly decreased FDG uptake in the left ventricular apex which could reflect prior myocardial infarction. Abdomen/pelvis/proximal thighs: No abnormal FDG uptake is identified. Physiologic FDG activity is present in the bowel and urinary tract. The liver, spleen, and adrenal glands are normal. Punctate calcifications of the prostate consistent with chronic pancreatitis. Stones are present in the nondistended gallbladder. No pathologically enlarged abdominal or pelvic lymph nodes are identified. No free intraperitoneal gas or evidence of bowel obstruction. There is an umbilical hernia containing fat. Musculoskeletal: No abnormal FDG uptake is identified. There is severe cervical, thoracic, and lumbar spondylosis. Osteoarthritis is also noted in the shoulders. IMPRESSION: 1. Pulmonary nodule without associated FDG uptake, consistent with a benign nodule. Review of Systems Constitutional: Constitutional: Reports no additional constitutional complaints Eyes: Eyes: Reports no additional eye complaints ENT: Reports system reviewed and no additional complaints, except as documented Cardiovascular: Cardiovascular: Reports no additional cardiovascular complaints Respiratory: Respiratory: Reports no additional respiratory complaints Gastrointestinal: Gastrointestinal: Reports no additional gastrointestinal complaints Musculoskeletal: Musculoskeletal: Reports no additional musculoskeletal complaints Neurologic: Reports system reviewed and no additional complaints, except as documented Psychiatric: Psychiatric: Reports no additional psychiatric complaints Endocrine: Endocrine: Reports no additional endocrine complaints Hematologic/Lymphatic: Hematologic/Lymphatic: Reports no additional hematologic/lymphatic complaints Allergic/Immunologic: Allergic/Immunologic: Reports no additional allergic/immunologic complaints Exam Const: General: cooperative, healthy appearing and comfortable Orientation/consciousness: oriented to person, oriented to place and oriented to time HENMT: Head: normal to inspection Ears: hearing grossly normal bilaterally Eyes: General: appearance normal, both eyes and all related structures Neck: Neck: normal visual inspection Chest: Chest palpation & inspection: normal inspection of the chest Resp: Effort & Inspection: normal respiratory effort and able to speak in complete sentences Auscultation: no crackles, no rales, no rhonchi, no wheezes and lung sounds not diminished Cardio: Jugular venous distension: no JVD GI: Inspection: normal to inspection Skin: General skin exam: normal color Other: some skin plaques Neuro: General: oriented to person, oriented to place and oriented to time Extrem: General: normal to inspection and no edema Psych: Appearance: grossly normal Objective Data Vital Signs Vital Signs: Vital Signs - 24 hr 05/05/25 12:30 05/05/25 15:56 05/05/25 16:00 Temperature 36.5 C Pulse Rate 90 86 81 Respiratory Rate 20 Blood Pressure 140/86 Pulse Oximetry 95 Oxygen Delivery Oxygen Flow Rate 05/05/25 17:44 05/05/25 20:00 05/05/25 20:00 Temperature Pulse Rate 123 H Respiratory Rate Blood Pressure Pulse Oximetry 92 Oxygen Delivery Room Air Room Air Oxygen Flow Rate 05/05/25 20:12 05/05/25 20:56 05/05/25 22:30 Temperature 36.5 C Pulse Rate 124 H 131 H Respiratory Rate 18 Blood Pressure 130/88 Pulse Oximetry 94 93 Oxygen Delivery Nasal Cannula Oxygen Flow Rate 2 05/06/25 00:00 05/06/25 04:00 05/06/25 05:17 Temperature 36.7 C Pulse Rate 144 H 107 H 121 H Respiratory Rate 16 Blood Pressure 162/80 H Pulse Oximetry 96 Oxygen Delivery Oxygen Flow Rate Intake/Output Intake/Output: Intake & Output 05/03/25 05/04/25 05/05/25 05/06/25 23:59 23:59 23:59 23:59 Intake Total 1790 2009 1999 400 Output Total 5640 588 6932 300 Balance 739 1360 975 100 Meds/Results Medications: Active Medications Generic Name Dose Route Start Last Admin Trade Name Freq PRN Reason Stop Dose Admin Acetaminophen 650 mg 05/02/25 09:57 05/04/25 20:30 Acetaminophen 325 Mg Tablet PO 650 mg Q4H PRN Administration Mild Pain (1-3) or Fever Apixaban 2.5 mg 05/02/25 21:00 05/06/25 09:21 Apixaban 2.5 Mg Tablet PO 2.5 mg Q12HR BERNARDA Administration Aspirin 81 mg 05/03/25 09:00 05/06/25 09:21 Aspirin 81 Mg Enteric Tablet PO 81 mg QAM BERNARDA Administration Cyanocobalamin 500 mcg 05/06/25 09:00 05/06/25 09:21 Cyanocobalamin 500 Mcg Tablet PO 500 mcg DAILY BERNARDA Administration Diltiazem HCl 240 mg 05/02/25 16:00 05/06/25 09:21 Diltiazem Hcl Cd 240 Mg Cap.24hr BY MOUTH 240 mg DAILY BERNARDA Administration Fish Oil 1 gm 05/03/25 09:00 05/06/25 09:22 [place] 3 Polyunsat Fatty Acids 1 Gm Cap PO 1 gm DAILY BERNARDA Administration Lactobacillus Acidophilus 1 tablet 05/06/25 09:00 05/06/25 09:21 Acidophilus/Bulgaricus Chewable Tablet BY MOUTH 1 tablet DAILY BERNARDA Administration Levofloxacin 750 mg 05/06/25 09:00 05/06/25 09:22 Levofloxacin 750 Mg Tablet PO 05/10/25 09:01 750 mg DAILY BERNARDA Administration Magnesium Gluconate 27 mg 05/03/25 09:00 05/06/25 09:22 Magnesium 27 Mg Tablet (500 Mg Mag Gluconate) PO 27 mg DAILY BERNARDA Administration Metoprolol Succinate 100 mg 05/05/25 21:00 05/05/25 20:56 Metoprolol Succinate Ext Rel 100 Mg Tabcr PO 100 mg [facility]HS [facility] Administration Multivitamins Therapeutic 1 tablet 05/06/25 09:00 05/06/25 09:22 Multivitamins Therapeutic Tab (*Bkc) PO 1 tablet DAILY BERNARDA Administration Perflutren Lipid Microsphere 0 ml 05/03/25 15:21 Perflutren Lipid Microspheres 1.5 Ml Vial Diluted To 10 Ml Total Volume IV PUSH 05/06/25 15:21 ONCE PRN adequate visualization Protocol Tamsulosin HCl 0.4 mg 05/06/25 21:00 Tamsulosin Hcl 0.4 Mg Capsule PO QHS [facility] Tamsulosin HCl 0.4 mg 05/06/25 21:00 Tamsulosin Hcl 0.4 Mg Capsule PO QHS [facility] Umeclidinium Success 1 puff 05/05/25 11:15 05/06/25 07:50 Umeclidinium Success 62.5 Mcg Ellipta INHALATION 1 puff DAILYRT [facility] Administration Radiology Results: ITS Impressions Chest X-Ray 05/02/25 08:39 IMPRESSION: 1. Mild bibasilar opacities and favor persistent atelectasis/scarring over pneumonia. Chest CT 05/02/25 11:03 IMPRESSION: 1. Bronchitis and mucous plugging in the right middle and lower lobes with more focal small region of pneumonia at the posterior basilar right lower lobe. Labs Labs: Laboratory Results - last 24 hr 05/04/25 05/05/25 05/06/25 03:35 17:21 06:45 WBC 12.1 H RBC 5.16 Hgb 16.4 Hct 48.8 MCV 94.6 MCH 31.8 MCHC 33.6 RDW 14.1 Plt Count 218 MPV 11.4 H Sodium 134 L Potassium 4.5 Chloride 102 Carbon Dioxide 26 Anion Gap 6 BUN 25 H Creatinine 1.08 Estim Creat Clear Calc 48 Estimated GFR > 60 Glucose 89 Calcium 9.0 Magnesium 1.7 [id number] 204 H
[2025-05-06] MEDS: dilTIAZem HCL CD 120 MG CAP.24HR PO (10:52)
--- NOTE | 2025-05-06 11:25 | HOMEO2EVAL ---
Evaluation was performed at [facility] Home Oxygen Evaluation RC: Home Oxygen (O2) Evaluation Start: 05/06/25 10:43 Freq: ONCE Status: Active Protocol: RPE Activity Type Activity Date Activity User E-sign Co-sign Detail Recorded Client Recorded Date Recorded By Document 05/06/25 11:00 DJO [email or web address] 05/06/25 11:24 DJO Document 05/06/25 11:05 DJO [email or web address] 05/06/25 11:24 DJO Document 05/06/25 11:15 [email or web address] [email or web address] 05/06/25 11:24 DJO 05/06/25 05/06/25 05/06/25 11:00 11:05 11:15 Home O2 Evaluation [Oxygen] -Test Phase Resting Exercise Resting -Oxygen Delivery Room Air Room Air Room Air [Pulse Oximetry] -Pulse Oximetry (90-100 %) 94 95 95 [Pulse Rate] -Pulse Rate (60-100 beats/min) 127 H 152 H 122 H [Evaluation] -Activity Tolerance Good [Comments] -Home Oxygen Evaluation Comments RN AND PHYSICIAN AWARE OF HIGH HEART RATE [Charges] -Evaluation Charges O2 Evaluation by Pulmonary
--- NOTE | 2025-05-06 11:51 | PM.IMPN ---
Progress Note: A&P Assessment and Plan (1) Atrial fibrillation with rapid ventricular response: Code(s): I48.91 - Unspecified atrial fibrillation Status: Acute Plan Patient with shortness of breath was found to have bronchitis and mucous plugging in the right middle and lower lobes with more focal small region of pneumonia at the posterior basilar right lower lobe with underlining COPD, was seen by his electroencephalograph technician, was treated with ceftriaxone and doxycycline, patient clinical symptoms are improving and stats he is not as short of breath as when he came to the ER, discussed with Dr. Rojas, patient clinical symptoms and oxygen requirements are improving however patient HR is tachy in the morning in 150s, patient was taking metoprolol tartrate 50mg BID and diltiazem 240mg qd, stopped metoprolol 50mg tartrate BID and switch to metoprolol succinate 100mg qhs, may help with rate in the morning, discussed with pharmacy and agrees, will monitor. however patient HR still above hundred and increases with activities, today will increase diltiazem to 360 and monitor, electroencephalograph technician has signed off as he breathing better, will monitor and plan. Afib RVR, rate controlled Patient has a history of Afib TSH WNL, ECHO currently on home Cardizem and Metoprolol Titrate off Cardizem infusion On Eliquis monitor Pneumonia CT Chest showed mucus plug with posterior basilar right lower lobe MRSA negative Blood culture ordered On Rocephin, Flagyl and Doxycycline Pulmonology consulted monitor Acute hypoxemic respiratory failure on 2 liters oxygen titrate oxygen Hypertension Titrate home meds with clinical course DVT prophylaxis on Eliquis Full code Subjective Date/time seen: 05/06/25 11:51 Interval history: Comfortable at bedside CT Chest showed mucus plug with posterior basilar right lower lobe Flagyl added Patient with shortness of breath was found to have bronchitis and mucous plugging in the right middle and lower lobes with more focal small region of pneumonia at the posterior basilar right lower lobe with underlining COPD, was seen by his electroencephalograph technician, was treated with ceftriaxone and doxycycline, patient clinical symptoms are improving and stats he is not as short of breath as when he came to the ER, discussed with Dr. Rojas, patient clinical symptoms and oxygen requirements are improving however patient HR is tachy in the morning in 150s, patient was taking metoprolol tartrate 50mg BID and diltiazem 240mg qd, stopped metoprolol 50mg tartrate BID and switch to metoprolol succinate 100mg qhs, may help with rate in the morning, discussed with pharmacy and agrees, will monitor. however patient HR still above hundred and increases with activities, today will increase diltiazem to 360 and monitor, electroencephalograph technician has signed off as he breathing better, will monitor and plan. Review of Systems Review of Systems: All other systems were reviewed and negative except as noted in the HPI above Exam Narrative: Patient is comfortable, NAD HEENT: eyes are clear and none icteric LUNGS: Bilateral fair entry with rhonchi HEART: RR S1S2 ABD: BS+, Soft and nontender Lower extremities: no edema SKIN: nonjaundiced Neuro: grossly intact. Objective Data Vital Signs Vital Signs: Vital Signs - 24 hr 05/05/25 12:30 05/05/25 15:56 05/05/25 16:00 Temperature 36.5 C Pulse Rate 90 86 81 Respiratory Rate 20 Blood Pressure 140/86 Pulse Oximetry 95 Oxygen Delivery Oxygen Flow Rate 05/05/25 17:44 05/05/25 20:00 05/05/25 20:00 Temperature Pulse Rate 123 H Respiratory Rate Blood Pressure Pulse Oximetry 92 Oxygen Delivery Room Air Room Air Oxygen Flow Rate 05/05/25 20:12 05/05/25 20:56 05/05/25 22:30 Temperature 36.5 C Pulse Rate 124 H 131 H Respiratory Rate 18 Blood Pressure 130/88 Pulse Oximetry 94 93 Oxygen Delivery Nasal Cannula Oxygen Flow Rate 2 05/06/25 00:00 05/06/25 04:00 05/06/25 05:17 Temperature 36.7 C Pulse Rate 144 H 107 H 121 H Respiratory Rate 16 Blood Pressure 162/80 H Pulse Oximetry 96 Oxygen Delivery Oxygen Flow Rate 05/06/25 08:00 05/06/25 11:00 05/06/25 11:05 Temperature Pulse Rate 104 H 127 H 152 H Respiratory Rate Blood Pressure Pulse Oximetry 94 95 Oxygen Delivery Room Air Room Air Oxygen Flow Rate 05/06/25 11:15 Temperature Pulse Rate 122 H Respiratory Rate Blood Pressure Pulse Oximetry 95 Oxygen Delivery Room Air Oxygen Flow Rate Intake/Output Intake/Output: Intake & Output 05/03/25 05/04/25 05/05/25 05/06/25 23:59 23:59 23:59 23:59 Intake Total 1790 2010 2000 760 Output Total 0060 969 8279 300 Balance 739 1360 975 460 Meds/Results Medications: Active Medications Generic Name Dose Route Start Last Admin Trade Name Freq PRN Reason Stop Dose Admin Acetaminophen 650 mg 05/02/25 09:57 05/04/25 20:30 Acetaminophen 325 Mg Tablet PO 650 mg Q4H PRN Administration Mild Pain (1-3) or Fever Apixaban 2.5 mg 05/02/25 21:00 05/06/25 09:21 Apixaban 2.5 Mg Tablet PO 2.5 mg Q12HR BERNARDA Administration Aspirin 81 mg 05/03/25 09:00 05/06/25 09:21 Aspirin 81 Mg Enteric Tablet PO 81 mg QAM BERNARDA Administration Cyanocobalamin 500 mcg 05/06/25 09:00 05/06/25 09:21 Cyanocobalamin 500 Mcg Tablet PO 500 mcg DAILY BERNARDA Administration Diltiazem HCl 240 mg 05/02/25 16:00 05/06/25 09:21 Diltiazem Hcl Cd 240 Mg Cap.24hr BY MOUTH 240 mg DAILY BERNARDA Administration Fish Oil 1 gm 05/03/25 09:00 05/06/25 09:22 [place] 3 Polyunsat Fatty Acids 1 Gm Cap PO 1 gm DAILY BERNARDA Administration Lactobacillus Acidophilus 1 tablet 05/06/25 09:00 05/06/25 09:21 Acidophilus/Bulgaricus Chewable Tablet BY MOUTH 1 tablet DAILY BERNARDA Administration Levofloxacin 750 mg 05/06/25 09:00 05/06/25 09:22 Levofloxacin 750 Mg Tablet PO 05/10/25 09:01 750 mg DAILY BERNARDA Administration Magnesium Gluconate 27 mg 05/03/25 09:00 05/06/25 09:22 Magnesium 27 Mg Tablet (500 Mg Mag Gluconate) PO 27 mg DAILY BERNARDA Administration Metoprolol Succinate 100 mg 05/05/25 21:00 05/05/25 20:56 Metoprolol Succinate Ext Rel 100 Mg Tabcr PO 100 mg QHS BERNARDA Administration Multivitamins Therapeutic 1 tablet 05/06/25 09:00 05/06/25 09:22 Multivitamins Therapeutic Tab (*Bkc) PO 1 tablet DAILY BERNARDA Administration Perflutren Lipid Microsphere 0 ml 05/03/25 15:21 Perflutren Lipid Microspheres 1.5 Ml Vial Diluted To 10 Ml Total Volume IV PUSH 05/06/25 15:21 ONCE PRN adequate visualization Protocol Tamsulosin HCl 0.4 mg 05/06/25 21:00 Tamsulosin Hcl 0.4 Mg Capsule PO QHS [facility] Tamsulosin HCl 0.4 mg 05/06/25 21:00 Tamsulosin Hcl 0.4 Mg Capsule PO QHS [facility] Umeclidinium [place] 1 puff 05/05/25 11:15 05/06/25 07:50 Umeclidinium [place] 62.5 Mcg Ellipta INHALATION 1 puff DAILYRT [facility] Administration Radiology Results: ITS Impressions Chest X-Ray 05/02/25 08:39 IMPRESSION: 1. Mild bibasilar opacities and favor persistent atelectasis/scarring over pneumonia. Chest CT 05/02/25 11:03 IMPRESSION: 1. Bronchitis and mucous plugging in the right middle and lower lobes with more focal small region of pneumonia at the posterior basilar right lower lobe. Labs Labs: Laboratory Results - last 24 hr 05/04/25 05/05/25 05/06/25 03:35 17:21 06:45 WBC 12.1 H RBC 5.16 Hgb 16.4 Hct 48.8 MCV 94.6 MCH 31.8 MCHC 33.6 RDW 14.1 Plt Count 218 MPV 11.4 H Sodium 134 L Potassium 4.5 Chloride 102 Carbon Dioxide 26 Anion Gap 6 BUN 25 H Creatinine 1.08 Estim Creat Clear Calc 48 Estimated GFR > 60 Glucose 89 Calcium 9.0 Magnesium 1.7 [id number] 204 H
--- NOTE | 2025-05-06 13:23 | ECG_ITS ---
Test Date: 2025-05-06 13:38:23 Measurements Intervals [place] Rate: 124 P: 0 TN: 0 QRS: 28 QRSD: 96 T: 1 QT: 289 QTc: 415 Interpretive Statements ATRIAL FIBRILLATION WITH RAPID VENTRICULAR RESPONSE WITH VENTRICULAR COUPLETS AND VENTRICULAR PREMATURE COMPLEX BORDERLINE ST-T WAVE ABNORMALITY- ANTEROLAT/INF LEADS ABNORMAL ECG Compared to ECG 05/02/2025 07:40:41 HEART RATE HAS DECREASED Electronically Signed On 05-06-2025 13:40:29 CDT by Ezequiel Hutchinson D.O.
--- NOTE | 2025-05-06 13:51 | PCRCNOTE ---
ADH NOCTURNAL O2 2L IV RESP CARE 05/06/25 EMILY
--- NOTE | 2025-05-06 14:41 | P.CONCA_ITS ---
Assessment and Plan Assessment and plan (1) Atrial fibrillation: Code(s): I48.91 - Unspecified atrial fibrillation Status: Acute Assessment and Plan: Metoprolol Tartate just changed from 50 mg BID to Succinate 100 mg daily. On Diltiazem 240 mg daily. On Eliquis. Increase Diltiazem 360 mg daily. (2) Essential (primary) hypertension: Code(s): I10 - Essential (primary) hypertension Status: Acute Assessment and Plan: Mildly high. (3) Pure hypercholesterolemia: Code(s): E78.00 - Pure hypercholesterolemia, unspecified Status: Acute (4) Pneumonia: Code(s): J18.9 - Pneumonia, unspecified organism Status: Acute Assessment and Plan: On antibiotics as per hospitalist. History of Present Illness History of Present Illness Consult date/time: 05/06/25 14:41 Reason For Visit: atrial fibrillation with rvr Narrative: 79 yr old man who is my regular cardiology patient and a patient of Dr. Downing present to ER with sob. He has a history of atrial fibrillation, dyslipidemia, hypertension, COPD, JOYCE (intolerant of CPAP, Sees PCP), former smoking. States 4 days ago he was very sob and he came to ER and found to have pneumonia. He had cough with sputum production but no fever or chills. He is limited at walking 1 block due to TURNER. Denies chest pain, orthopnea, PND, edema, dizziness, palpitations. Cardiovascular Procedures Electrophysiology:: 06/19/23 EKG: Atrial fibrillation at 90 bpm, PVC's. Stress Tests:: 08/31/14 Sleep study: Severe JOYCE. Review of Systems 2 Review of Systems: All systems reviewed & are unremarkable except as noted in HPI and below Cardiovascular: Cardiovascular: Reports as per HPI and Denies chest pain Respiratory: Respiratory: Reports as per HPI, Reports cough and Reports dyspnea Gastrointestinal: Gastrointestinal: Reports as per HPI and Denies abdominal pain Genitourinary: Genitourinary: Reports as per HPI and Denies dysuria Musculoskeletal: Musculoskeletal: Reports as per HPI Neurologic: Reports as per HPI, Denies dizziness and Denies syncope REPLACED BY [facility] Past Medical History Medical History Prediabetes Atrial fibrillation COPD (chronic obstructive pulmonary disease) Lung nodules Umbilical hernia Brain aneurysm Enlarged prostate with lower urinary tract symptoms (LUTS) Essential (primary) hypertension Obstructive sleep apnea (adult) (pediatric) Other psoriatic arthropathy Polyosteoarthritis, unspecified Psoriasis vulgaris Vitamin D deficiency Surgical History Surgical History H/O arthroscopic knee surgery Family History Family History Father Family history of diabetes mellitus in first degree relative, Onset Age: 62 Patient's father is Diabetes mellitus Mother Family history of heart disease in male family member before age 55, Onset Age: 81 Patient's mother is Family history of cardiovascular disease Social History Social History Smoking packs per day: 1 Smoking cigarettes per day: 20.0 Years smoked: 40 Smoking pack-years: 40.00 Smoking status: Former smoker Tobacco type: cigarettes Second hand tobacco smoke exposure: No Smoking end date: 12/02/16 Alcohol intake: current Substance use: current Substance use type: marijuana Other substance usage details: COUPLE TIMES A WEEK Do You Feel Safe in your Home?: Yes Lack of Transportation: No Lack of Food: Never True Current Housing: I Have Housing Concerned About Future Housing: No Difficulty Paying Gas/Electric Bills: No Difficulty Paying for Meds: No Currently Unemployed: No Education: High School Diploma/GED Difficulty w/ Childcare or Family Care: No Living arrangements: with family Spiritual care concerns: No Meds Home Medications and Allergies Home Medications ?Medication ?Instructions ?Recorded ?Confirmed ?Type adalimumab 40 mg/0.8 mL See Rx Instructions subcut .COMPLEX 01/13/20 05/02/25 History subcutaneous syringe kit (Humira) multivitamin 1 tablet PO DAILY 01/09/23 05/02/25 History apixaban 2.5 mg tablet (Eliquis) See Rx Instructions .Route 09/30/24 05/02/25 Rx .COMPLEX #60 tabs metoprolol tartrate 50 mg tablet See Rx Instructions .Route 12/08/24 05/02/25 Rx .COMPLEX #180 tabs diltiazem HCl 240 mg See Rx Instructions .Route 12/28/24 05/02/25 Rx capsule,extended release 24 hr .COMPLEX #90 caps Symbicort 160 mcg-4.5 See Rx Instructions .Route 02/03/25 05/02/25 Rx mcg/actuation HFA aerosol inhaler .COMPLEX #10.2 grams (budesonide-formoterol) albuterol sulfate 90 mcg/actuation See Rx Instructions .Route 03/01/25 05/02/25 Rx aerosol inhaler .COMPLEX #8.5 grams hydrocodone 7.5 mg-acetaminophen 1 tablet PO Q6H PRN pain #110 tabs 04/09/25 05/02/25 Rx 325 mg tablet L.acid,par,plant,rham-B.anim,bif,brev,inf,long 1 cap PO DAILY 05/02/25 05/02/25 History 30 billion cell capsule (Probiotic Digestive Health) aspirin 81 mg capsule 81 mg PO DAILY 05/02/25 05/02/25 History cyanocobalamin (vitamin B-12) 500 500 mcg PO DAILY 05/02/25 05/02/25 History mcg tablet (B-12 DOTS) magnesium 250 mg tablet 500 mg PO DAILY 05/02/25 05/02/25 History omega 7-scb-ppq-fish oil 1,200 mg 1 cap PO DAILY 05/02/25 05/02/25 History (144 mg-216 mg) capsule (Fish Oil) tamsulosin 0.4 mg capsule 0.4 mg PO QHS 05/06/25 05/06/25 History Allergies Allergy/AdvReac Type Severity Reaction Status Date / Time No Known Allergies Allergy Unknown Verified 07/01/24 10:25 Vital Signs Vital Signs - 24 hr 05/05/25 15:56 05/05/25 16:00 05/05/25 17:44 Temperature 97.7 F Pulse Rate 86 81 Respiratory Rate 20 Blood Pressure 140/86 Pulse Oximetry 95 92 Oxygen Delivery Room Air Oxygen Flow Rate 05/05/25 20:00 05/05/25 20:00 05/05/25 20:12 Temperature 97.7 F Pulse Rate 123 H 124 H Respiratory Rate 18 Blood Pressure 130/88 Pulse Oximetry 94 Oxygen Delivery Room Air Oxygen Flow Rate 05/05/25 20:56 05/05/25 22:30 05/06/25 00:00 Temperature Pulse Rate 131 H 144 H Respiratory Rate Blood Pressure Pulse Oximetry 93 Oxygen Delivery Nasal Cannula Oxygen Flow Rate 2 05/06/25 04:00 05/06/25 05:17 05/06/25 08:00 Temperature 98.0 F Pulse Rate 107 H 121 H 104 H Respiratory Rate 16 Blood Pressure 162/80 H Pulse Oximetry 96 Oxygen Delivery Oxygen Flow Rate 05/06/25 08:00 05/06/25 11:00 05/06/25 11:05 Temperature Pulse Rate 127 H 152 H Respiratory Rate Blood Pressure Pulse Oximetry 94 95 Oxygen Delivery Room Air Room Air Room Air Oxygen Flow Rate 05/06/25 11:15 05/06/25 12:00 Temperature Pulse Rate 122 H 117 H Respiratory Rate Blood Pressure Pulse Oximetry 95 Oxygen Delivery Room Air Oxygen Flow Rate Exam 2 Const: General: cooperative, healthy appearing and comfortable Resp: Auscultation: clear to auscultation bilaterally, no crackles, no rales, no rhonchi and no wheezes Cardio: Rate: regular rate and tachycardic Rhythm: abnormal rhythm Heart sounds: no murmurs Peripheral pulses: dorsalis pedis present GI: GI Palp: No abdominal tenderness and Yes Soft to palpation Neuro: General: oriented to person, oriented to place and oriented to time Extrem: Right lower extremity: no edema Left lower extremity: no edema Results Labs and Meds 05/06/25 06:45 05/06/25 06:45 Lab results: CBC 05/06/25 Range/Units 06:45 WBC 12.1 H (4.5-10.0) K/mm3 RBC 5.16 (4.6-6.20) M/mm3 Hgb 16.4 (14.0-18.0) g/dL Hct 48.8 (42.0-52.0) % Plt Count 218 (150-375) k/mm3 Comprehensive Metabolic Panel 05/06/25 Range/Units 06:45 Sodium 134 L (137-145) mmol/L Potassium 4.5 (3.4-5.0) mmol/L Chloride 102 (98-107) mmol/L Carbon Dioxide 26 (22-30) mmol/L BUN 25 H (9-20) mg/dL Creatinine 1.08 (0.7-1.3) mg/dL Glucose 89 (65-110) mg/dL Calcium 9.0 (8.4-10.2) mg/dL Intake and Output 05/05/25 05/06/25 05/06/25 23:59 07:59 15:59 Intake Total 890 400 360 Output Total 475 300 Balance 415 100 360 Intake: IV 100 Doxycycline 100 mg/Ns 100 ml 100 100 mg In 100 ml @ 100 mls/hr IVPB Q12H [facility] Rx#:[id number] Oral 790 400 360 Output: Urine 475 300 Other: # Unmeasured Voids 4 1 Number of Bowel Movements Today 1 Patient Weight 05/06/25 23:59 Weight 73.5 kg
[2025-05-06 15:43] LABS: Pneumococcal Antigen Urine NOT DETECTED
[2025-05-06] MEDS: LEVALBUTEROL HFA (*SP) 15 GM INHALER 2 PUFF INHALATION (17:27)
[2025-05-06 17:54] LABS: Magnesium 1.7 mg/dL (1.6-2.3)
[2025-05-06] MEDS: TAMSULOSIN HCL 0.4 MG CAPSULE PO (20:19)
[2025-05-06] MEDS: METOPROLOL SUCCINATE EXT REL 100 MG TABCR PO (20:19)
[2025-05-06 21:03] LABS: Legionella pneumophila Ag Ur NOT DETECTED
--- NOTE | 2025-05-06 21:45 | PC.NURSE ---
DISCUSSED WITH LAB ABOUT PENDING LAB RESULTS FROM 05/04/25 0840. [employer] MICA STATES THE SPECIMENS WERE SENT OUT AND WILL TAKE A FEW DAYS TO GET RESULTS. WILL FOLLOW UP IN AM
[2025-05-07] VITALS (18 sets, daily range): BP systolic 120–144; BP diastolic 70–89; PULSE 61–127; RESP 16–20; TEMP 36.1–36.5; O2SAT 93–98
[2025-05-07] MEDS: LEVALBUTEROL HFA (*SP) 15 GM INHALER 2 PUFF INHALATION ×2 (00:19→14:46)
[2025-05-07 06:17] LABS: Hematocrit 47.8 % (42.0-52.0); Hemoglobin 16.2 g/dL (14.0-18.0); Mean Corpuscular HGB Conc 33.9 g/dl (32-36); Mean Corpuscular Hemoglobin 31.5 pg (26-34); Platelet Count Result 219 k/mm3 (150-375); Red Blood Count 5.14 M/mm3 (4.6-6.20); Red Cell Distribution Width 14.1 % (11.5-14.5); White Blood Count 13.2 K/mm3 (4.5-10.0)
[2025-05-07 06:34] LABS: Anion Gap 11 mmol/L (4-12); Blood Urea Nitrogen 29 mg/dL (9-20); Calcium 9.2 mg/dL (8.4-10.2); Carbon Dioxide 21 mmol/L (22-30); Chloride 102 mmol/L (98-107); Estimated CRCL calculation 45 ml/min; Estimated Glomerular Filt Rate 60; Glucose 107 mg/dL (65-110); Potassium 4.5 mmol/L (3.4-5.0); Sodium 134 mmol/L (137-145)
--- NOTE | 2025-05-07 07:47 | PM.PNCARD ---
Progress Note: A&P Assessment and Plan (1) Atrial fibrillation: Code(s): I48.91 - Unspecified atrial fibrillation Status: Acute Assessment and Plan: Metoprolol Tartate just changed from 50 mg BID to Succinate 100 mg daily. On Diltiazem 240 mg daily. On Eliquis. Increase Diltiazem 360 mg daily. Will sign off, please call with any questions. Upon discharge have him f/u with me in 1-2 weeks. (2) Essential (primary) hypertension: Code(s): I10 - Essential (primary) hypertension Status: Acute Assessment and Plan: Mildly high. (3) Pure hypercholesterolemia: Code(s): E78.00 - Pure hypercholesterolemia, unspecified Status: Acute (4) Pneumonia: Code(s): J18.9 - Pneumonia, unspecified organism Status: Acute Assessment and Plan: On antibiotics as per hospitalist. Subjective Date/time seen: 05/07/25 07:47 Interval history: Denies chest pain or sob. Exam Const: General: cooperative, healthy appearing and comfortable Orientation/consciousness: oriented to person, oriented to place and oriented to time Resp: Auscultation: clear to auscultation bilaterally, no crackles, no rales, no rhonchi and no wheezes Cardio: Rate: regular rate Rhythm: abnormal rhythm Heart sounds: no murmurs Peripheral pulses: dorsalis pedis present Neuro: General: oriented to person, oriented to place and oriented to time Extrem: Right lower extremity: no edema Left lower extremity: no edema Objective Data Vital Signs Vital Signs: Vital Signs - 24 hr 05/06/25 08:00 05/06/25 08:00 05/06/25 11:00 Temperature Pulse Rate 104 H 127 H Respiratory Rate Blood Pressure Pulse Oximetry 94 Oxygen Delivery Room Air Room Air Oxygen Flow Rate Fraction of Inspired Oxygen 05/06/25 11:05 05/06/25 11:15 05/06/25 12:00 Temperature Pulse Rate 152 H 122 H 117 H Respiratory Rate Blood Pressure Pulse Oximetry 95 95 Oxygen Delivery Room Air Room Air Oxygen Flow Rate Fraction of Inspired Oxygen 05/06/25 16:00 05/06/25 16:00 05/06/25 19:55 Temperature 97.3 F L Pulse Rate 72 88 110 H Respiratory Rate 18 20 Blood Pressure 165/74 H 137/74 Pulse Oximetry 93 94 Oxygen Delivery Oxygen Flow Rate Fraction of Inspired Oxygen 06/05/25 20:00 05/06/25 20:00 05/06/25 20:19 Temperature Pulse Rate 104 H 112 H Respiratory Rate Blood Pressure Pulse Oximetry Oxygen Delivery Room Air Oxygen Flow Rate Fraction of Inspired Oxygen 05/06/25 20:50 05/07/25 00:00 05/07/25 00:00 Temperature 97.2 F L Pulse Rate 105 H 127 H Respiratory Rate 20 Blood Pressure 138/73 Pulse Oximetry 94 98 Oxygen Delivery Room Air Oxygen Flow Rate Fraction of Inspired Oxygen 05/07/25 00:20 05/07/25 00:22 05/07/25 04:00 Temperature Pulse Rate 94 94 109 H Respiratory Rate 20 20 Blood Pressure Pulse Oximetry 95 Oxygen Delivery Nasal Cannula Oxygen Flow Rate 2 Fraction of Inspired Oxygen 28 05/07/25 04:25 Temperature 97.1 F L Pulse Rate 61 Respiratory Rate 20 Blood Pressure 130/88 Pulse Oximetry 97 Oxygen Delivery Oxygen Flow Rate Fraction of Inspired Oxygen Intake/Output Intake/Output: Intake & Output 05/04/25 05/05/25 05/06/25 05/07/25 23:59 23:59 23:59 23:59 Intake Total 2009 1999 1110 350 Output Total 650 1025 700 450 Balance 1360 975 410 -100 Meds/Results Medications: Active Medications Generic Name Dose Route Start Last Admin Trade Name Freq PRN Reason Stop Dose Admin Acetaminophen 650 mg 05/02/25 09:57 05/04/25 20:30 Acetaminophen 325 Mg Tablet PO 650 mg Q4H PRN Administration Mild Pain (1-3) or Fever Apixaban 2.5 mg 05/02/25 21:00 05/06/25 20:19 Apixaban 2.5 Mg Tablet PO 2.5 mg Q12HR BERNARDA Administration Aspirin 81 mg 05/03/25 09:00 05/06/25 09:21 Aspirin 81 Mg Enteric Tablet PO 81 mg QAM BERNARDA Administration Cyanocobalamin 500 mcg 05/06/25 09:00 05/06/25 09:21 Cyanocobalamin 500 Mcg Tablet PO 500 mcg DAILY BERNARDA Administration Diltiazem HCl 360 mg 05/07/25 09:00 Diltiazem Hcl Cd 180 Mg Cap.24hr BY MOUTH DAILY [facility] Fish Oil 1 gm 05/03/25 09:00 05/06/25 09:22 [place] 3 Polyunsat Fatty Acids 1 Gm Cap PO 1 gm DAILY BERNARDA Administration Lactobacillus Acidophilus 1 tablet 05/06/25 09:00 05/06/25 09:21 Acidophilus/Bulgaricus Chewable Tablet BY MOUTH 1 tablet DAILY BERNARDA Administration Levalbuterol HCl 2 puff 05/06/25 15:25 05/07/25 00:19 Levalbuterol Hfa (*Sp) 15 Gm Inhaler INHALATION 2 puff Q6HRT PRN Administration Shortness Of Breath Levofloxacin 750 mg 05/06/25 09:00 05/06/25 09:22 Levofloxacin 750 Mg Tablet PO 05/10/25 09:01 750 mg DAILY BERNARDA Administration Magnesium Gluconate 27 mg 05/03/25 09:00 05/06/25 09:22 Magnesium 27 Mg Tablet (500 Mg Mag Gluconate) PO 27 mg DAILY BERNARDA Administration Metoprolol Succinate 100 mg 05/05/25 21:00 05/06/25 20:19 Metoprolol Succinate Ext Rel 100 Mg Tabcr PO 100 mg QHS BERNARDA Administration Multivitamins Therapeutic 1 tablet 05/06/25 09:00 05/06/25 09:22 Multivitamins Therapeutic Tab (*Bkc) PO 1 tablet DAILY BERNARDA Administration Tamsulosin HCl 0.4 mg 05/06/25 21:00 05/06/25 20:19 Tamsulosin Hcl 0.4 Mg Capsule PO 0.4 mg QHS BERNARDA Administration Umeclidinium [place] 1 puff 05/05/25 11:15 05/06/25 07:50 Umeclidinium [place] 62.5 Mcg Ellipta INHALATION 1 puff DAILYRT BERNARDA Administration Radiology Results: ITS Impressions Chest X-Ray 05/02/25 08:39 IMPRESSION: 1. Mild bibasilar opacities and favor persistent atelectasis/scarring over pneumonia. Chest CT 05/02/25 11:03 IMPRESSION: 1. Bronchitis and mucous plugging in the right middle and lower lobes with more focal small region of pneumonia at the posterior basilar right lower lobe. Labs Labs: Laboratory Results - last 24 hr 05/03/25 05/06/25 05/06/25 19:16 06:45 17:00 WBC 12.1 H RBC 5.16 Hgb 16.4 Hct 48.8 MCV 94.6 MCH 31.8 MCHC 33.6 RDW 14.1 Plt Count 218 MPV 11.4 H Sodium 134 L Potassium 4.5 Chloride 102 Carbon Dioxide 26 Anion Gap 6 BUN 25 H Creatinine 1.08 Estim Creat Clear Calc 48 Estimated GFR > 60 Glucose 89 Calcium 9.0 Magnesium 1.7 Ur L.pneumophila Ag Not detected Urine Pneumococcal Ag Not detected 05/07/25 04:59 WBC 13.2 H RBC 5.14 Hgb 16.2 Hct 47.8 MCV 93.0 MCH 31.5 MCHC 33.9 RDW 14.1 Plt Count 219 MPV 12.0 H Sodium 134 L Potassium 4.5 Chloride 102 Carbon Dioxide 21 L Anion Gap 11 BUN 29 H Creatinine 1.18 Estim Creat Clear Calc 45 Estimated GFR 60 Glucose 107 Calcium 9.2 Magnesium Ur L.pneumophila Ag Urine Pneumococcal Ag
[2025-05-07] MEDS: UMECLIDINIUM BROMIDE 62.5 MCG ELLIPTA 1 PUFF INHALATION (08:45)
[2025-05-07] MEDS: ASPIRIN 81 MG ENTERIC TABLET PO (09:11)
[2025-05-07] MEDS: CYANOCOBALAMIN 500 MCG TABLET PO (09:11)
[2025-05-07] MEDS: MAGNESIUM 27 MG TABLET (500 MG MAG GLUCONATE) PO (09:11)
[2025-05-07] MEDS: MULTIVITAMINS THERAPEUTIC TAB (*BKC) 1 TABLET PO (09:11)
[2025-05-07] MEDS: APIXABAN 2.5 MG TABLET PO ×2 (09:11→20:20)
[2025-05-07] MEDS: OMEGA 3 POLYUNSAT FATTY ACIDS 1 GM CAP PO (09:11)
[2025-05-07] MEDS: levoFLOXacin 750 MG TABLET PO (09:12)
[2025-05-07] MEDS: ACIDOPHILUS/BULGARICUS CHEWABLE TABLET 1 TABLET BY MOUTH (09:12)
[2025-05-07] MEDS: dilTIAZem HCL CD 180 MG CAP.24HR 360 MG BY MOUTH (09:13)
[2025-05-07 11:49] LABS: Adenovirus DNA Not Detected (Not Detected); Chlamydophila pneumoniae Not Detected (Not Detected); Coronavirus 229E Not Detected (Not Detected); Coronavirus HKU1 Not Detected (Not Detected); Coronavirus NL63 Not Detected (Not Detected); Coronavirus OC43 Not Detected (Not Detected); Human Metapneumovirus Not Detected (Not Detected); Human Parainfluenza Virus 1 Not Detected (Not Detected); Human Parainfluenza Virus 2 Not Detected (Not Detected); Human Parainfluenza Virus 3 Not Detected (Not Detected); Human Parainfluenza Virus 4 Not Detected (Not Detected); Human RSV B Not Detected (Not Detected); Influenza A Not Detected (Not Detected); Influenza B Not Detected (Not Detected); Mycoplasma pneumoniae Not Detected (Not Detected); Rhinovirus/Enterovirus Not Detected (Not Detected)
--- NOTE | 2025-05-07 13:26 | P.PNIM_ITS ---
Progress Note: A&P Assessment and Plan (1) Atrial fibrillation with rapid ventricular response: Code(s): I48.91 - Unspecified atrial fibrillation Status: Acute Plan Patient with shortness of breath was found to have bronchitis and mucous plugging in the right middle and lower lobes with more focal small region of pneumonia at the posterior basilar right lower lobe with underlining COPD, was seen by his environmental research scientist, was treated with ceftriaxone and doxycycline, patient clinical symptoms are improving and stats he is not as short of breath as when he came to the ER, discussed with Dr. Rojas, patient clinical symptoms and oxygen requirements are improving however patient HR is tachy in the morning in 150s, patient was taking metoprolol tartrate 50mg BID and diltiazem 240mg qd, stopped metoprolol 50mg tartrate BID and switch to metoprolol succinate 100mg qhs, may help with rate in the morning, discussed with pharmacy and agrees, will monitor. however patient HR still above hundred and increases with activities, on 05/06 scalper operator continued metoprolol succinate 100mg qd and increased diltiazem to 360 and monitor,to patient HR is still tachy in 130s scalper operator added digixin 125mcg will monitor, environmental research scientist has signed off as he breathing better, will monitor and plan. Afib RVR, rate controlled Patient has a history of Afib TSH WNL, ECHO currently on home Cardizem and Metoprolol Titrate off Cardizem infusion On Eliquis monitor Pneumonia CT Chest showed mucus plug with posterior basilar right lower lobe MRSA negative Blood culture ordered On Rocephin, Flagyl and Doxycycline Pulmonology consulted monitor Acute hypoxemic respiratory failure on 2 liters oxygen titrate oxygen Hypertension Titrate home meds with clinical course DVT prophylaxis on Eliquis Full code Subjective Date/time seen: 05/07/25 13:26 Interval history: Comfortable at bedside CT Chest showed mucus plug with posterior basilar right lower lobe Flagyl added Patient with shortness of breath was found to have bronchitis and mucous plugg ing in the right middle and lower lobes with more focal small region of pneumonia at the posterior basilar right lower lobe with underlining COPD, was seen by his environmental research scientist, was treated with ceftriaxone and doxycycline, patient clinical symptoms are improving and stats he is not as short of breath as when he came to the ER, discussed with Dr. Bob, patient clinical symptoms and oxygen requirements are improving however patient HR is tachy in the morning in 150s, patient was taking metoprolol tartrate 50mg BID and diltiazem 240mg qd, stopped metoprolol 50mg tartrate BID and switch to metoprolol succinate 100mg qhs, may help with rate in the morning, discussed with pharmacy and agrees, will monitor. however patient HR still above hundred and increases with activities, on 05/06 scalper operator continued metoprolol succinate 100mg qd and increased diltiazem to 360 and monitor,to patient HR is still tachy in 130s scalper operator added digixin 125mcg will monitor, environmental research scientist has signed off as he breathing better, will monitor and plan. Review of Systems Review of Systems: All other systems were reviewed and negative except as noted in the HPI above Exam Narrative: Patient is comfortable, NAD HEENT: eyes are clear and none icteric LUNGS: Bilateral fair entry with rhonchi HEART: RR S1S2 ABD: BS+, Soft and nontender Lower extremities: no edema SKIN: nonjaundiced Neuro: grossly intact. Objective Data Vital Signs Vital Signs: Vital Signs - 24 hr 05/06/25 16:00 05/06/25 16:00 05/06/25 19:55 Temperature 36.3 C L Pulse Rate 72 88 110 H Respiratory Rate 18 20 Blood Pressure 165/74 H 137/74 Pulse Oximetry 93 94 Oxygen Delivery Oxygen Flow Rate Fraction of Inspired Oxygen 05/06/25 20:00 05/06/25 20:00 05/06/25 20:19 Temperature Pulse Rate 104 H 112 H Respiratory Rate Blood Pressure Pulse Oximetry Oxygen Delivery Room Air Oxygen Flow Rate Fraction of Inspired Oxygen 05/06/25 20:50 05/07/25 00:00 05/07/25 00:00 Temperature 36.2 C L Pulse Rate 105 H 127 H Respiratory Rate 20 Blood Pressure 138/73 Pulse Oximetry 94 98 Oxygen Delivery Room Air Oxygen Flow Rate Fraction of Inspired Oxygen 05/07/25 00:20 05/07/25 00:22 05/07/25 04:00 Temperature Pulse Rate 94 94 109 H Respiratory Rate 20 20 Blood Pressure Pulse Oximetry 95 Oxygen Delivery Nasal Cannula Oxygen Flow Rate 2 Fraction of Inspired Oxygen 28 05/07/25 04:25 05/07/25 08:25 05/07/25 08:46 Temperature 36.2 C L Pulse Rate 61 61 Respiratory Rate 20 20 Blood Pressure 130/88 Pulse Oximetry 97 93 93 Oxygen Delivery Nasal Cannula Nasal Cannula Oxygen Flow Rate 2 2 Fraction of Inspired Oxygen 28 Intake/Output Intake/Output: Intake & Output 05/04/25 05/05/25 05/06/25 05/07/25 23:59 23:59 23:59 23:59 Intake Total 2009 1999 1110 690 Output Total 650 1025 700 450 Balance 1360 975 410 240 Meds/Results Medications: Active Medications Generic Name Dose Route Start Last Admin Trade Name Freq PRN Reason Stop Dose Admin Acetaminophen 650 mg 05/02/25 09:57 05/04/25 20:30 Acetaminophen 325 Mg Tablet PO 650 mg Q4H PRN Administration Mild Pain (1-3) or Fever Apixaban 2.5 mg 05/02/25 21:00 05/07/25 09:11 Apixaban 2.5 Mg Tablet PO 2.5 mg Q12HR BERNARDA Administration Aspirin 81 mg 05/03/25 09:00 05/07/25 09:11 Aspirin 81 Mg Enteric Tablet PO 81 mg QAM BERNARDA Administration Cyanocobalamin 500 mcg 05/06/25 09:00 05/07/25 09:11 Cyanocobalamin 500 Mcg Tablet PO 500 mcg DAILY BERNARDA Administration Diltiazem HCl 360 mg 05/07/25 09:00 05/07/25 09:13 Diltiazem Hcl Cd 180 Mg Cap.24hr BY MOUTH 360 mg DAILY BERNARDA Administration Fish Oil 1 gm 05/03/25 09:00 05/07/25 09:11 [place] 3 Polyunsat Fatty Acids 1 Gm Cap PO 1 gm DAILY BERNARDA Administration Lactobacillus Acidophilus 1 tablet 05/06/25 09:00 05/07/25 09:12 Acidophilus/Bulgaricus Chewable Tablet BY MOUTH 1 tablet DAILY BERNARDA Administration Levalbuterol HCl 2 puff 05/06/25 15:25 05/07/25 00:19 Levalbuterol Hfa (*Sp) 15 Gm Inhaler INHALATION 2 puff Q6HRT PRN Administration Shortness Of Breath Levofloxacin 750 mg 05/06/25 09:00 05/07/25 09:12 Levofloxacin 750 Mg Tablet PO 05/10/25 09:01 750 mg DAILY BERNARDA Administration Magnesium Gluconate 27 mg 05/03/25 09:00 05/07/25 09:11 Magnesium 27 Mg Tablet (500 Mg Mag Gluconate) PO 27 mg DAILY BERNARDA Administration Metoprolol Succinate 100 mg 05/05/25 21:00 05/06/25 20:19 Metoprolol Succinate Ext Rel 100 Mg Tabcr PO 100 mg QHS BERNARDA Administration Multivitamins Therapeutic 1 tablet 05/06/25 09:00 05/07/25 09:11 Multivitamins Therapeutic Tab (*Bkc) PO 1 tablet DAILY BERNARDA Administration Tamsulosin HCl 0.4 mg 05/06/25 21:00 05/06/25 20:19 Tamsulosin Hcl 0.4 Mg Capsule PO 0.4 mg QHS BERNARDA Administration Umeclidinium [place] 1 puff 05/05/25 11:15 05/07/25 08:45 Umeclidinium [place] 62.5 Mcg Ellipta INHALATION 1 puff DAILYRT BERNARDA Administration Radiology Results: ITS Impressions Chest X-Ray 05/02/25 08:39 IMPRESSION: 1. Mild bibasilar opacities and favor persistent atelectasis/scarring over pneumonia. Chest CT 05/02/25 11:03 IMPRESSION: 1. Bronchitis and mucous plugging in the right middle and lower lobes with more focal small region of pneumonia at the posterior basilar right lower lobe. Labs Labs: Laboratory Results - last 24 hr 05/03/25 05/04/25 05/06/25 19:16 08:40 17:00 WBC RBC Hgb Hct MCV MCH MCHC RDW Plt Count MPV Sodium Potassium Chloride Carbon Dioxide Anion Gap BUN Creatinine Estim Creat Clear Calc Estimated GFR Glucose Calcium Magnesium 1.7 Nasal RSV Type A (PCR) Not detected Nasal RSV Type B (PCR) Not detected Chlamy pneumoniae PCR Not detected Adenovirus DNA Not detected Human Bocavirus (RAFAEL) Not detected Coronavirus Type OC43 Not detected Coronavirus Type HKU1 Not detected Coronavirus Type 229E Not detected Coronavirus Type NL63 Not detected Human Metapneumovir PCR Not detected Influenza A (PCR) Not detected Influenza A (H1) RNA Not detected Influenza A (H3) PCR Not detected Ur L.pneumophila Ag Not detected M. pneumoniae DNA Not detected Parainfluenza PCR Not detected Parainfluenza 2 (PCR) Not detected Parainfluenza 3 RNA (PCR) Not detected Parainfluenza 4 (PCR) Not detected Rhino/Enterovirus (RAFAEL) Not detected Urine Pneumococcal Ag Not detected Influenza Type B (PCR) Not detected Misc Test Comment see note 05/07/25 04:59 WBC 13.2 H RBC 5.14 Hgb 16.2 Hct 47.8 MCV 93.0 MCH 31.5 MCHC 33.9 RDW 14.1 Plt Count 219 MPV 12.0 H Sodium 134 L Potassium 4.5 Chloride 102 Carbon Dioxide 21 L Anion Gap 11 BUN 29 H Creatinine 1.18 Estim Creat Clear Calc 45 Estimated GFR 60 Glucose 107 Calcium 9.2 Magnesium Nasal RSV Type A (PCR) Nasal RSV Type B (PCR) Chlamy pneumoniae PCR Adenovirus DNA Human Bocavirus (RAFAEL) Coronavirus Type OC43 Coronavirus Type HKU1 Coronavirus Type 229E Coronavirus Type NL63 Human Metapneumovir PCR Influenza A (PCR) Influenza A (H1) RNA Influenza A (H3) PCR Ur L.pneumophila Ag M. pneumoniae DNA Parainfluenza PCR Parainfluenza 2 (PCR) Parainfluenza 3 RNA (PCR) Parainfluenza 4 (PCR) Rhino/Enterovirus (RAFAEL) Urine Pneumococcal Ag Influenza Type B (PCR) Misc Test Comment
[2025-05-07] MEDS: DIGOXIN TAB 125 MCG TABLET PO (13:39)
[2025-05-07 17:27] LABS: Magnesium 1.7 mg/dL (1.6-2.3)
[2025-05-07 17:38] LABS: Mycoplasma IgM Antibody Titer 674 U/mL
[2025-05-07] MEDS: CALCIUM CARBONATE (TUMS) 500 MG (200 MG ELEMENTAL) 400 MG PO (19:42)
[2025-05-07] MEDS: METOPROLOL SUCCINATE EXT REL 100 MG TABCR PO (20:19)
[2025-05-07] MEDS: TAMSULOSIN HCL 0.4 MG CAPSULE PO (20:20)
[2025-05-08] VITALS (7 sets, daily range): BP systolic 140; BP diastolic 89; PULSE 83–98; RESP 16; TEMP 36.6; O2SAT 94–96
[2025-05-08 05:04] LABS: Hematocrit 50.7 % (42.0-52.0); Hemoglobin 16.7 g/dL (14.0-18.0); Mean Corpuscular HGB Conc 32.9 g/dl (32-36); Mean Corpuscular Hemoglobin 31.4 pg (26-34); Mean Corpuscular Volume 95.3 fl (80-100); Mean Platelet Volume 11.4 fl (7.4-10.4); Platelet Count Result 234 k/mm3 (150-375); Red Blood Count 5.32 M/mm3 (4.6-6.20); Red Cell Distribution Width 14.1 % (11.5-14.5)
[2025-05-08 05:25] LABS: Anion Gap 11 mmol/L (4-12); Blood Urea Nitrogen 33 mg/dL (9-20); Calcium 9.3 mg/dL (8.4-10.2); Carbon Dioxide 25 mmol/L (22-30); Chloride 99 mmol/L (98-107); Estimated CRCL calculation 42 ml/min; Estimated Glomerular Filt Rate 56; Glucose 105 mg/dL (65-110); Potassium 4.7 mmol/L (3.4-5.0); Sodium 135 mmol/L (137-145)
--- NOTE | 2025-05-08 08:10 | PM.PNCARD ---
Progress Note: A&P Assessment and Plan (1) Atrial fibrillation: Code(s): I48.91 - Unspecified atrial fibrillation Status: Acute Assessment and Plan: Rate controlled on Metoprolol Succinate 100 mg daily, Diltiazem 360 mg daily and Digoxin 125 mcg daily. On Eliquis. Will sign off, please call with any questions. Upon discharge have him f/u with me in 1-2 weeks. (2) Essential (primary) hypertension: Code(s): I10 - Essential (primary) hypertension Status: Acute Assessment and Plan: Stable. (3) Pneumonia: Code(s): J18.9 - Pneumonia, unspecified organism Status: Acute Assessment and Plan: On antibiotics as per hospitalist. Subjective Date/time seen: 05/08/25 08:10 Interval history: Denies chest pain or sob. Exam Const: General: cooperative, healthy appearing and comfortable Orientation/consciousness: oriented to person, oriented to place and oriented to time Resp: Auscultation: clear to auscultation bilaterally, no crackles, no rales, no rhonchi and no wheezes Cardio: Rate: regular rate Rhythm: abnormal rhythm Heart sounds: no murmurs Peripheral pulses: dorsalis pedis present Neuro: General: oriented to person, oriented to place and oriented to time Extrem: Right lower extremity: no edema Left lower extremity: no edema Objective Data Vital Signs Vital Signs: Vital Signs - 24 hr 05/07/25 08:25 05/07/25 08:46 05/07/25 12:00 Temperature Pulse Rate 61 116 H Respiratory Rate 20 Blood Pressure Pulse Oximetry 93 93 Oxygen Delivery Nasal Cannula Nasal Cannula Oxygen Flow Rate 2 2 Fraction of Inspired Oxygen 28 05/07/25 13:33 05/07/25 13:39 05/07/25 14:47 Temperature 97.0 F L Pulse Rate 87 84 75 Respiratory Rate 20 20 Blood Pressure 120/70 Pulse Oximetry 94 Oxygen Delivery Oxygen Flow Rate Fraction of Inspired Oxygen 05/07/25 14:52 05/07/25 16:00 05/07/25 20:00 Temperature Pulse Rate 70 96 Respiratory Rate 20 Blood Pressure Pulse Oximetry 97 Oxygen Delivery Oxygen Flow Rate 2 Fraction of Inspired Oxygen 05/07/25 20:00 05/07/25 20:19 05/07/25 21:04 Temperature 97.7 F Pulse Rate 95 96 100 Respiratory Rate 16 Blood Pressure 144/89 H Pulse Oximetry 97 Oxygen Delivery Oxygen Flow Rate Fraction of Inspired Oxygen 05/07/25 22:05 05/08/25 00:00 05/08/25 04:00 Temperature Pulse Rate 74 98 83 Respiratory Rate Blood Pressure Pulse Oximetry 94 Oxygen Delivery Nasal Cannula Oxygen Flow Rate 2 Fraction of Inspired Oxygen 05/08/25 04:42 Temperature 97.8 F Pulse Rate 88 Respiratory Rate 16 Blood Pressure 140/89 Pulse Oximetry 94 Oxygen Delivery Oxygen Flow Rate Fraction of Inspired Oxygen Intake/Output Intake/Output: Intake & Output 05/05/25 05/06/25 05/07/25 05/08/25 23:59 23:59 23:59 23:59 Intake Total 19990 1040 350 Output Total 1025 700 450 300 Balance 975 410 590 50 Meds/Results Medications: Active Medications Generic Name Dose Route Start Last Admin Trade Name Freq PRN Reason Stop Dose Admin Acetaminophen 650 mg 05/02/25 09:57 05/04/25 20:30 Acetaminophen 325 Mg Tablet PO 650 mg Q4H PRN Administration Mild Pain (1-3) or Fever Apixaban 2.5 mg 05/02/25 21:00 05/07/25 20:20 Apixaban 2.5 Mg Tablet PO 2.5 mg Q12HR BERNARDA Administration Aspirin 81 mg 05/03/25 09:00 05/07/25 09:11 Aspirin 81 Mg Enteric Tablet PO 81 mg QAM BERNARDA Administration Calcium Carbonate 400 mg 05/07/25 19:06 05/07/25 19:42 Calcium Carbonate (Tums) 500 Mg (200 Mg Elemental) PO 400 mg Q6H PRN Administration Indigestion Cyanocobalamin 500 mcg 05/06/25 09:00 05/07/25 09:11 Cyanocobalamin 500 Mcg Tablet PO 500 mcg DAILY BERNARDA Administration Digoxin 125 mcg 05/07/25 13:30 05/07/25 13:39 Digoxin Tab 125 Mcg Tablet PO 125 mcg QAM BERNARDA Administration Diltiazem HCl 360 mg 05/07/25 09:00 05/07/25 09:13 Diltiazem Hcl Cd 180 Mg Cap.24hr BY MOUTH 360 mg DAILY BERNARDA Administration Fish Oil 1 gm 05/03/25 09:00 05/07/25 09:11 [place] 3 Polyunsat Fatty Acids 1 Gm Cap PO 1 gm DAILY BERNARDA Administration Lactobacillus Acidophilus 1 tablet 05/06/25 09:00 05/07/25 09:12 Acidophilus/Bulgaricus Chewable Tablet BY MOUTH 1 tablet DAILY BERNARDA Administration Levalbuterol HCl 2 puff 05/06/25 15:25 05/07/25 14:46 Levalbuterol Hfa (*Sp) 15 Gm Inhaler INHALATION 2 puff Q6HRT PRN Administration Shortness Of Breath Levofloxacin 750 mg 05/06/25 09:00 05/07/25 09:12 Levofloxacin 750 Mg Tablet PO 05/10/25 09:01 750 mg DAILY BERNARDA Administration Magnesium Gluconate 27 mg 05/08/25 12:00 Magnesium 27 Mg Tablet (500 Mg Mag Gluconate) PO NOON BERNARDA Metoprolol Succinate 100 mg 05/05/25 21:00 05/07/25 20:19 Metoprolol Succinate Ext Rel 100 Mg Tabcr PO 100 mg QHS BERNARDA Administration Multivitamins Therapeutic 1 tablet 05/06/25 09:00 05/07/25 09:11 Multivitamins Therapeutic Tab (*Bkc) PO 1 tablet DAILY BERNARDA Administration Tamsulosin HCl 0.4 mg 05/06/25 21:00 05/07/25 20:20 Tamsulosin Hcl 0.4 Mg Capsule PO 0.4 mg QHS BERNARDA Administration Umeclidinium [place] 1 puff 05/05/25 11:15 05/07/25 08:45 Umeclidinium [place] 62.5 Mcg Ellipta INHALATION 1 puff DAILYRT BERNARDA Administration Radiology Results: ITS Impressions Chest X-Ray 05/02/25 08:39 IMPRESSION: 1. Mild bibasilar opacities and favor persistent atelectasis/scarring over pneumonia. Chest CT 05/02/25 11:03 IMPRESSION: 1. Bronchitis and mucous plugging in the right middle and lower lobes with more focal small region of pneumonia at the posterior basilar right lower lobe. Labs Labs: Laboratory Results - last 24 hr 05/04/25 05/04/25 05/04/25 03:34 03:35 08:40 WBC RBC Hgb Hct MCV MCH MCHC RDW Plt Count MPV Sodium Potassium Chloride Carbon Dioxide Anion Gap BUN Creatinine Estim Creat Clear Calc Estimated GFR Glucose Calcium Magnesium Alpha-1-AT Phenotype See note Nasal RSV Type A (PCR) Not detected Nasal RSV Type B (PCR) Not detected Chlamy pneumoniae PCR Not detected Adenovirus DNA Not detected Human Bocavirus (RAFAEL) Not detected Coronavirus Type OC43 Not detected Coronavirus Type HKU1 Not detected Coronavirus Type 229E Not detected Coronavirus Type NL63 Not detected Human Metapneumovir PCR Not detected Influenza A (PCR) Not detected Influenza A (H1) RNA Not detected Influenza A (H3) PCR Not detected Mycoplasma pneumon IgM 674 M. pneumoniae DNA Not detected Parainfluenza PCR Not detected Parainfluenza 2 (PCR) Not detected Parainfluenza 3 RNA (PCR) Not detected Parainfluenza 4 (PCR) Not detected Rhino/Enterovirus (RAFAEL) Not detected SARS-CoV-2 RNA (RT-PCR) Not detected Influenza Type B (PCR) Not detected Misc Test Comment see note 05/07/25 05/08/25 17:06 04:35 WBC 17.0 H RBC 5.32 Hgb 16.7 Hct 50.7 MCV 95.3 MCH 31.4 MCHC 32.9 RDW 14.1 Plt Count 234 MPV 11.4 H Sodium 135 L Potassium 4.7 Chloride 99 Carbon Dioxide 25 Anion Gap 11 BUN 33 H Creatinine 1.24 Estim Creat Clear Calc 42 Estimated GFR 56 L Glucose 105 Calcium 9.3 Magnesium 1.7 Alpha-1-AT Phenotype Nasal RSV Type A (PCR) Nasal RSV Type B (PCR) Chlamy pneumoniae PCR Adenovirus DNA Human Bocavirus (RAFAEL) Coronavirus Type OC43 Coronavirus Type HKU1 Coronavirus Type 229E Coronavirus Type NL63 Human Metapneumovir PCR Influenza A (PCR) Influenza A (H1) RNA Influenza A (H3) PCR Mycoplasma pneumon IgM M. pneumoniae DNA Parainfluenza PCR Parainfluenza 2 (PCR) Parainfluenza 3 RNA (PCR) Parainfluenza 4 (PCR) Rhino/Enterovirus (RAFAEL) SARS-CoV-2 RNA (RT-PCR) Influenza Type B (PCR) Misc Test Comment
[2025-05-08] MEDS: MULTIVITAMINS THERAPEUTIC TAB (*BKC) 1 TABLET PO (08:29)
[2025-05-08] MEDS: ASPIRIN 81 MG ENTERIC TABLET PO (08:29)
[2025-05-08] MEDS: APIXABAN 2.5 MG TABLET PO (08:29)
[2025-05-08] MEDS: CYANOCOBALAMIN 500 MCG TABLET PO (08:29)
[2025-05-08] MEDS: levoFLOXacin 750 MG TABLET PO (08:29)
[2025-05-08] MEDS: DIGOXIN TAB 125 MCG TABLET PO (08:29)
[2025-05-08] MEDS: ACIDOPHILUS/BULGARICUS CHEWABLE TABLET 1 TABLET BY MOUTH (08:29)
[2025-05-08] MEDS: OMEGA 3 POLYUNSAT FATTY ACIDS 1 GM CAP PO (08:29)
[2025-05-08] MEDS: CALCIUM CARBONATE (TUMS) 500 MG (200 MG ELEMENTAL) 400 MG PO (08:30)
[2025-05-08] MEDS: dilTIAZem HCL CD 180 MG CAP.24HR 360 MG BY MOUTH (08:30)
[2025-05-08 10:23] LABS: Magnesium 1.7 mg/dL (1.6-2.3)
[2025-05-08] MEDS: UMECLIDINIUM BROMIDE 62.5 MCG ELLIPTA 1 PUFF INHALATION (10:51)
--- NOTE | 2025-05-08 11:09 | PM.DS ---
DS: Admitting Diagnosis Discharge Date 05/08/25 Admitting Diagnosis SOB and cough DS: Discharge Diagnosis Discharge Diagnosis (1) Atrial fibrillation with rapid ventricular response: Code(s): I48.91 - Unspecified atrial fibrillation Status: Acute Plan Patient with shortness of breath was found to have bronchitis and mucous plugging in the right middle and lower lobes with more focal small region of pneumonia at the posterior basilar right lower lobe with underlining COPD, was seen by his medical technician assistant, was treated with ceftriaxone and doxycycline, patient clinical symptoms are improving and stats he is not as short of breath as when he came to the ER, discussed with Dr. Rojas, patient clinical symptoms and oxygen requirements are improving however patient HR is tachy in the morning in 150s, patient was taking metoprolol tartrate 50mg BID and diltiazem 240mg qd, stopped metoprolol 50mg tartrate BID and switch to metoprolol succinate 100mg qhs, may help with rate in the morning, discussed with pharmacy and agrees, will monitor. however patient HR still above hundred and increases with activities, on 05/06 volunteer services coordinator continued metoprolol succinate 100mg qd and increased diltiazem to 360 and monitor,to patient HR is still tachy in 130s volunteer services coordinator added digixin 125mcg will monitor, medical technician assistant has signed off as he breathing better, will monitor and plan. Afib RVR, rate controlled Patient has a history of Afib TSH WNL, ECHO currently on home Cardizem and Metoprolol Titrate off Cardizem infusion On Eliquis monitor Pneumonia CT Chest showed mucus plug with posterior basilar right lower lobe MRSA negative Blood culture ordered On Rocephin, Flagyl and Doxycycline Pulmonology consulted monitor Acute hypoxemic respiratory failure on 2 liters oxygen titrate oxygen Hypertension Titrate home meds with clinical course DVT prophylaxis on Eliquis Full code DS: Summary Hospital Course Hospital Course: Patient with shortness of breath was found to have bronchitis and mucous plugging in the right middle and lower lobes with more focal small region of pneumonia at the posterior basilar right lower lobe with underlining COPD, was seen by his medical technician assistant, was treated with ceftriaxone and doxycycline, patient clinical symptoms are improving and stats he is not as short of breath as when he came to the ER, discussed with Dr. Rojas, patient clinical symptoms and oxygen requirements are improving however patient HR is tachy in the morning in 150s, patient was taking metoprolol tartrate 50mg BID and diltiazem 240mg qd, stopped metoprolol 50mg tartrate BID and switch to metoprolol succinate 100mg qhs, may help with rate in the morning, discussed with pharmacy and agrees, will monitor. however patient HR still above hundred and increases with activities, on 05/06 volunteer services coordinator continued metoprolol succinate 100mg qd and increased diltiazem to 360 and monitor,to patient HR is still tachy in 130s volunteer services coordinator added digixin 125mcg will monitor, medical technician assistant has signed off as he breathing better, will monitor and plan. today patient HR is close to normal, he is breathing better, will discharge today. Time Spent with Patient Time attestation: Total time spent providing and/or coordinating discharge services: Exam Narrative: Patient is comfortable, NAD HEENT: eyes are clear and none icteric LUNGS: Bilateral fair entry with rhonchi HEART: RR S1S2 ABD: BS+, Soft and nontender Lower extremities: no edema SKIN: nonjaundiced Neuro: grossly intact. DS: Data Data Completed and Pending Labs on day of discharge: Labs from last 24 hours 05/08/25 05/07/25 05/04/25 04:35 17:06 08:40 WBC 17.0 H RBC 5.32 Hgb 16.7 Hct 50.7 MCV 95.3 MCH 31.4 MCHC 32.9 RDW 14.1 Plt Count 234 MPV 11.4 H Sodium 135 L Potassium 4.7 Chloride 99 Carbon Dioxide 25 Anion Gap 11 BUN 33 H Creatinine 1.24 Estim Creat Clear Calc 42 Estimated GFR 56 L Glucose 105 Calcium 9.3 Magnesium 1.7 1.7 Alpha-1-AT Phenotype Nasal RSV Type A (PCR) Not detected Nasal RSV Type B (PCR) Not detected Chlamy pneumoniae PCR Not detected Adenovirus DNA Not detected Human Bocavirus (RAFAEL) Not detected Coronavirus Type OC43 Not detected Coronavirus Type HKU1 Not detected Coronavirus Type 229E Not detected Coronavirus Type NL63 Not detected Human Metapneumovir PCR Not detected Influenza A (PCR) Not detected Influenza A (H1) RNA Not detected Influenza A (H3) PCR Not detected Mycoplasma pneumon IgM M. pneumoniae DNA Not detected Parainfluenza PCR Not detected Parainfluenza 2 (PCR) Not detected Parainfluenza 3 RNA (PCR) Not detected Parainfluenza 4 (PCR) Not detected Rhino/Enterovirus (RAFAEL) Not detected SARS-CoV-2 RNA (RT-PCR) Not detected Influenza Type B (PCR) Not detected Misc Test Comment see note 05/04/25 05/04/25 03:35 03:34 WBC RBC Hgb Hct MCV MCH MCHC RDW Plt Count MPV Sodium Potassium Chloride Carbon Dioxide Anion Gap BUN Creatinine Estim Creat Clear Calc Estimated GFR Glucose Calcium Magnesium Alpha-1-AT Phenotype See note Nasal RSV Type A (PCR) Nasal RSV Type B (PCR) Chlamy pneumoniae PCR Adenovirus DNA Human Bocavirus (RAFAEL) Coronavirus Type OC43 Coronavirus Type HKU1 Coronavirus Type 229E Coronavirus Type NL63 Human Metapneumovir PCR Influenza A (PCR) Influenza A (H1) RNA Influenza A (H3) PCR Mycoplasma pneumon IgM 674 M. pneumoniae DNA Parainfluenza PCR Parainfluenza 2 (PCR) Parainfluenza 3 RNA (PCR) Parainfluenza 4 (PCR) Rhino/Enterovirus (RAFAEL) SARS-CoV-2 RNA (RT-PCR) Influenza Type B (PCR) Misc Test Comment Preliminary micro results at discharge 05/06/25 02:20 Sputum Culture - Preliminary Sputum 05/02/25 09:18 Blood Culture - Preliminary Blood 05/02/25 09:18 Blood Culture - Preliminary Blood Discharge Plan Discharge Attending physician on discharge: Hailey Cardenas Consulting providers: Srinivasa Rojas; Ezequiel Hutchinson; Slade Gilbert Discharging Clinician: Diogenes Cortés Patient Disposition: Home Activity: as tolerated Diet: heart healthy Discharge Instructions: patient to follow up with his volunteer services coordinator and primary care provider as soon possible, patient is instructed if any symptoms redevelop to go to nearest ER. Please have your primary care doctor order CT scan of the chest to check for pneumonia before starting Humira. Patient Instructions: Antibiotic Form, Apixaban (By mouth), A-fib (Atrial Fibrillation) (DC) Patient Language: Faroese Stand Alone Forms: General Discharge Information Follow-up/Referrals: Ezequiel Hutchinson DO [Physician] - Ulisses Downing MD [Primary Care Provider] - Srinivasa Rojas MD [Physician] - Discharge Medications: New digoxin 125 mcg (0.125 mg) Tablet 125 mcg PO QAM Qty: 30 0RF diltiazem HCl 180 mg Capsule,Ext.Rel 24h Degradable 360 mg BYMOUTH DAILY Qty: 30 0RF levalbuterol tartrate [Xopenex HFA] 45 mcg/actuation Hfa Aerosol Inhaler 2 puff inhalation Q6HRT PRN (Reason: Shortness Of Breath) Qty: 15 0RF levofloxacin 750 mg tablet 750 mg PO DAILY Qty: 3 0RF calcium carbonate 500 mg calcium (1,250 mg) Tablet,Chewable 400 mg PO Q6H PRN (Reason: Indigestion) Qty: 30 0RF metoprolol succinate [Toprol XL] 100 mg Tablet Extended Release 24 Hr 100 mg PO QHS Qty: 30 0RF Incruse Ellipta 62.5 mcg/actuation Blister With Device 62.5 mcg inhalation DAILYRT Qty: 30 0RF Continued multivitamin Tablet 1 tablet PO DAILY Probiotic Digestive Health 30 billion cell capsule 1 cap PO DAILY cyanocobalamin (vitamin B-12) [B-12 DOTS] 500 mcg tablet 500 mcg PO DAILY omega 7-vcu-qxb-fish oil [Fish Oil] 1,200 (144-216) mg capsule 1 cap PO DAILY aspirin 81 mg capsule 81 mg PO DAILY magnesium 250 mg tablet 500 mg PO DAILY tamsulosin 0.4 mg capsule 0.4 mg PO QHS Eliquis 2.5 mg tablet See Rx Instructions .ROUTE .COMPLEX Qty: 60 5RF Dose Instruction: TAKE 1 TABLET BY MOUTH TWICE DAILY Rx Instructions: TAKE 1 TABLET BY MOUTH TWICE DAILY budesonide-formoterol [Symbicort] 160-4.5 mcg/actuation HFA aerosol inhaler See Rx Instructions .ROUTE .COMPLEX Qty: 10.2 2RF Dose Instruction: INHALE 2 PUFFS BY MOUTH EVERY 12 HOURS Rx Instructions: INHALE 2 PUFFS BY MOUTH EVERY 12 HOURS Held Humira 40 mg/0.8 mL syringe kit See Rx Instructions SUB-Q .COMPLEX Hold Instructions: until seen by his primary care provider Rx Instructions: inject one - 40 mg/0.8 mL syringe every 2 weeks subcut Discontinued metoprolol tartrate 50 mg tablet See Rx Instructions .ROUTE .COMPLEX Qty: 180 0RF Dose Instruction: TAKE 1 TABLET BY MOUTH TWICE DAILY Rx Instructions: TAKE 1 TABLET BY MOUTH TWICE DAILY diltiazem HCl 240 mg capsule,extended release 24hr See Rx Instructions .ROUTE .COMPLEX Qty: 90 2RF Dose Instruction: TAKE 1 CAPSULE BY MOUTH DAILY Rx Instructions: TAKE 1 CAPSULE BY MOUTH DAILY albuterol sulfate 90 mcg/actuation HFA aerosol inhaler See Rx Instructions .ROUTE .COMPLEX Qty: 8.5 0RF Dose Instruction: INHALE 1 PUFF BY MOUTH EVERY 4 HOURS NEEDED FOR SHORTNESS OF BREATH OR WHEEZING Rx Instructions: INHALE 1 PUFF BY MOUTH EVERY 4 HOURS NEEDED FOR SHORTNESS OF BREATH OR WHEEZING No Action hydrocodone-acetaminophen 7.5-325 mg tablet 1 tablet PO Q6H PRN (Reason: pain) Qty: 110 0RF Date of admission: 05/03/25 11:29 Primary Care Provider: Ulisses Downing Admitting Provider: Hailey Cardenas Attending physician on admission: Diogenes Cortés Condition: Improved
[2025-05-08] MEDS: MAGNESIUM 27 MG TABLET (500 MG MAG GLUCONATE) PO (12:22)
--- NOTE | 2025-05-08 13:59 | PC.NURSE ---
I spoke with server support technician from [facility] to inform him pt was discharging home, pt given direct phone number to call when he gets home to have oxygen delivered
== END 2025-05-08 14:00 | disposition home or self-care (01) | DRG 193 ==
LOC: ANHED 09:04 → ANHIMU 10:25 → ANH2MED 05-08 11:04 → ANHIMU 05-11 15:25
PROVIDERS: Internal Medicine Pulmonary Disease; Admitting Provider Internal Medicine; Emergency Provider Emergency Medicine; PCP Family Medicine; Visit Provider Family Medicine
DX: J18.9 Pneumonia, unspecified organism (principal); J96.01 Acute respiratory failure with hypoxia; T17.890A Other foreign object in other parts of respiratory tract causing asphyxiation, initial encounter; J44.0 Chronic obstructive pulmonary disease with (acute) lower respiratory infection; I48.91 Unspecified atrial fibrillation; R91.8 Other nonspecific abnormal finding of lung field; I10 Essential (primary) hypertension; N40.0 Benign prostatic hyperplasia without lower urinary tract symptoms; G47.33 Obstructive sleep apnea (adult) (pediatric); M15.9 Polyosteoarthritis, unspecified; R73.03 Prediabetes; L40.50 Arthropathic psoriasis, unspecified; Z87.891 Personal history of nicotine dependence; Z79.01 Long term (current) use of anticoagulants; Z86.19 Personal history of other infectious and parasitic diseases
CPT/HCPCS: 36415; 71045; 71250; 80048; 80053; 82103; 82104; 83735; 83880; 84145; 84443; 84484; 85025; 85027; 85610; 85730; 86738; 87040; 87070; 87205; 87449; 87633; 87641; 87899; 93005; 93306; 94618; 94640; 94762; 96365; 96375; 97161; 99285; A9270; G0378; J0696; J1836

== ENCOUNTER 2025-05-27 16:57 | Inpatient (IN) | payer MEDICARE, SELFPAY ==
[2025-05-27] VITALS (10 sets, daily range): BP systolic 92–125; BP diastolic 67–88; PULSE 53–145; RESP 14–22; TEMP 36.4–36.6; O2SAT 95–98
--- NOTE | ~2025-05-27 | US_ITS ---
EXAMINATION: US abdomen limited DATE: 05/29/2025 07:41 INDICATION: Gallbladder distention. Elevated liver function tests. TECHNIQUE: Multiple grayscale and Doppler ultrasound images of the abdomen were obtained. COMPARISON: CT dated 05/27/2025 FINDINGS: The pancreatic head and body are normal in appearance. The pancreatic tail is not visualized. Liver has normal echogenicity and contour, with a smooth surface. No liver lesion identified. No intrahepat ic biliary duct dilation suspected. Portal venous flow was seen in the hepatopetal, normal direction and has normal Doppler waveform. The visualized proximal inferior vena cava is normal. There is marsha atous-appearing gallbladder wall thickening. A few small hyperechoic and shadowing gallstones are see n within the lumen of the gallbladder. Normal caliber common bile duct measuring up to 5 mm in diamet er. Sonographic Snowden sign was reported as negative by the applied mathematician. IMPRESSION: 1. Cholelithiasis and prominent edematous-appearing gallbladder wall thickening but with negative son ographic Snowden's sign which is equivocal for acute cholecystitis. No significant surrounding infiltr ation and was evident on the prior CT and the gallbladder wall thickening could potentially also be s econdary to heart failure, liver disease, renal failure or other generalized edema forming states. Co uld consider HIDA scan for further evaluation as clinically indicated. Reviewed, dictated and finalized at location A. IMPRESSION: 1. Cholelithiasis and prominent edematous-appearing gallbladder wall thickening but with negative sonographic Snowden's sign which is equivocal for acute melba cystitis. No significant surrounding infiltration and was evident on the prior CT and the gallbladder wall thickening could potentially also be secondary to h eart failure, liver disease, renal failure or other generalized edema forming s tates. Could consider HIDA scan for further evaluation as clinically indicated.
--- NOTE | ~2025-05-27 | CT_ITS ---
CT IAC/mastoids BI wo con Ordering provider: Mindy Hernandez MD Technique: CT temporal bones was performed by obtaining thin slice axial images. Coronal and sagittal reformatted images were also obtained. No contrast was administered. Radiation reduction technique u tilized.The dose-length product was 401.26 mGy-cm. Reason for exam: . diminished bilateral hearing . Comparison: None. Findings: RIGHT TEMPORAL BONE: The mastoid air cells are normal and well aerated. The external auditory canal is normal and well aerated. The tympanic membrane as visualized is intact and normal. The middle ear (including the epitympanum, mesotympanum and hypotympanum) is normal and well aerated. The tegmen ty mpani is intact. The scutum is normal. The auditory ossicles are normal. The cochlea, vestibule, ve stibular and cochlear aqueduct are normal. The semicircular canals are normal. The facial nerve can al is normal. The internal auditory canal is normal. The carotid canal and jugular foramen are nor mal.. Atherosclerotic changes of the carotid artery is noted. The temporomandibular joint is normal. LEFT TEMPORAL BONE: The mastoid air cells are normal and well aerated. The external auditory canal is normal and well aerated. The tympanic membrane as visualized is intact and normal. The middle ear ( including the epitympanum, mesotympanum and hypotympanum) is normal and well aerated. The tegmen tymp ani is intact. The scutum is normal. The auditory ossicles are normal. The cochlea, vestibule, ves tibular and cochlear aqueduct are normal. The semicircular canals are normal. The facial nerve karen l is normal. The internal auditory canal is normal. The carotid canal and jugular foramen are norm al. Atherosclerotic changes of the carotid artery is seen. The temporomandibular joint is normal. The visualized brain parenchyma, paranasal sinuses, and superficial soft tissues are normal for patie nt's age except for , Postoperative changes seen in the area of the sella turcica , degenerative changes of the spine, and Left maxillary sinus disease. IMPRESSION: No definite abnormality seen in both temporal bones. Reviewed, dictated and finalized at location A.
--- NOTE | ~2025-05-27 | US_ITS ---
EXAM: RENAL ULTRASOUND HISTORY: Acute kidney injury COMPARISON: Reference is made to a CTA of the chest abdomen and pelvis performed approximately 24 jerica rs earlier FINDINGS: RIGHT KIDNEY: 10.4 x 4.7 x 5.1 cm. Simple cyst within the interpolar region of the right kidney measuring 13 mm in greatest dimension. The remainder of the parenchyma of the right kidney is otherwise unremarkable in echogenicity and thi ckness. No hydronephrosis or renal calculi. LEFT KIDNEY: 11.2 x 5.9 x 5.2 cm No hydronephrosis or renal calculi. The parenchyma of the left kidney is unremarkable in echogenicity and thickness. BLADDER: Distended, and otherwise unremarkable. Bilateral ureteral jets are identified. IMPRESSION: No hydronephrosis or renal calculi. No findings to suggest medical renal disease. Simple cyst within the interpolar region of the right k idney, for which no further follow-up is needed. Reviewed, dictated and finalized at location A. IMPRESSION: No hydronephrosis or renal calculi. No findings to suggest medical renal disease. Simple cyst within the interpolar region of the right kidney, for which no further follow-up is needed.
--- NOTE | ~2025-05-27 | CT_ITS ---
EXAMINATION: CTA chest PE abdomen pel DATE: 05/27/2025 22:45 CDT INDICATION: Recent pneumonia with elevated d-dimer. TECHNIQUE: Computed tomographic angiography (CTA) of the chest was performed, along with multiple con tiguous axial images of the abdomen and pelvis with 100 mL Omnipaque-350 intravenous contrast. The do se-length product was 799.24 mGy-cm. Maximum intensity projection 3D-reconstructions of the aorta and other arteries were constructed by the technologist on a separate workstation. FINDINGS/OBSERVATIONS: PULMONARY ARTERIES: No filling defect is identified within the main or proximal pulmonary artery. The main pulmonary artery is not enlarged. THORACIC AORTA: No aneurysmal dilatation is present. Densely calcified atherosclerotic disease with scattered mural thrombus. The great vessels are intact LUNGS: Small bilateral pleural effusions with adjacent compressive atelectasis. MEDIASTINUM: No morphologically suspicious or pathologically enlarged lymph nodes are identified with in the mediastinum or bilateral axilla. BONES OF THE CHEST: No acute fracture. No significant degenerative disease. No lytic or blastic lesions. HEART: The heart is enlarged without pericardial effusion. LIVER: The liver enhances homogeneously and is not enlarged. GALLBLADDER AND BILIARY SYSTEM: The gallbladder is distended with trace surrounding inflammatory change and mural thickening. No intrahepatic biliary ductal dilatation is appreciated. PANCREAS: Fatty atrophy of the pancreas, limiting its evaluation. SPLEEN: The spleen enhances homogeneously and is not enlarged. KIDNEYS: The bilateral kidneys enhance symmetrically without hydronephrosis or renal calculi. ADRENAL GLANDS: Unremarkable. GASTROINTESTINAL TRACT: Colonic diverticulosis without surrounding inflammatory change. APPENDIX: The air-filled appendix is of normal caliber (axial series, images 102 through 117). VASCULATURE: Densely calcified atherosclerotic disease with scattered mural thrombus. No aneurysmal dilatation or acute dissection is appreciated. LYMPH NODES: No pathologically enlarged or morphologically suspicious lymph nodes within the retroperitoneum or at the root of the mesentery. PELVIC STRUCTURES: The bladder is only minimally distended, and otherwise unremarkable. The prostate gland is enlarged. 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 No acute compression fractures. No lytic or blastic lesions. IMPRESSION: No pulmonary embolus. No aortic dissection. Small bilateral pleural effusions with adjacent compressive atelectasis. Gallbladder distention with mural thickening and trace surrounding inflammatory change, which may be related to vascular congestion and fluid overload rather than inflammatory gallbladder disease, for w hich clinical (and serologic) correlation is needed. Reviewed, dictated and finalized at location A. IMPRESSION: No pulmonary embolus. No aortic dissection. Small bilateral pleural effusions with adjacent compressive atelectasis. Gallbladder distention with mural thickening and trace surrounding inflammatory change, which may be related to vascular congestion and fluid overload rather than inflammatory gallbladder disease, for which clinical (and serologic) corre lation is needed.
--- NOTE | ~2025-05-27 | XR_ITS ---
CHEST RADIOGRAPH CLINICAL HISTORY: elev troponin; baseline CXR for today . COMPARISON: Elevated troponin TECHNIQUE: Single portable view of the chest. FINDINGS The cardiomediastinal silhouette is enlarged. Trace bilateral pleural effusions with adjacent compressive atelectasis. The remainder of the lungs are clear. IMPRESSION: Trace bilateral pleural effusions with adjacent compressive atelectasis. Reviewed, dictated and finalized at location A.
--- NOTE | ~2025-05-27 | XR_ITS ---
CHEST RADIOGRAPH CLINICAL HISTORY: hypoxia . COMPARISON: 06/05/2025 and dating back to 05/27/2025 TECHNIQUE: Single portable view of the chest. FINDINGS Redemonstration of a moderate right and small left-sided pleural effusion with improved peribronchial thickening compared with previous examination. Patchy opacification of the bilateral lung rivera, specifically along the left fissure, for which mul tifocal infiltrate is suspected. Cardiomediastinal silhouette is partially obscured. IMPRESSION: Moderate right and small left-sided pleural effusion. Findings suggesting multifocal infiltrates. Reviewed, dictated and finalized at location A.
--- NOTE | ~2025-05-27 | XR_ITS ---
CHEST RADIOGRAPH CLINICAL HISTORY: PNA . COMPARISON: 06/04/2025 TECHNIQUE: Single portable view of the chest. FINDINGS The cardiomediastinal silhouette is enlarged, unchanged. Increased interstitial markings are identified bilaterally, findings suggesting mild pulmonary vascul ar congestion. Moderate right and small left-sided pleural effusion. Improved aeration when compared with previous days examination. Peribronchial thickening is also now noted, an interval change. The remainder of the lungs are clear. IMPRESSION: Mild pulmonary vascular congestion with a moderate right and small left-sided pleural effusion and pe ribronchial thickening. Improved aeration when compared with previous days examination, as detailed above. Reviewed, dictated and finalized at location A. IMPRESSION: Mild pulmonary vascular congestion with a moderate right and small left-sided p leural effusion and peribronchial thickening. Improved aeration when compared with previous days examination, as detailed abo ve.
--- NOTE | ~2025-05-27 | XR_ITS ---
XR chest 1V portable Ordering provider: Andres Mccallum MD History: 79 years Male with . hypoxia . Comparison: May 27, 2025 FINDINGS: MEDIASTINUM: The cardiac silhouette is not enlarged. LUNGS: No pneumothorax. Opacification the left upper lobe and both lower lobes is seen suggestive of atelectasis versus pneumonia. Follow-up to resolution is advised. Possible bilateral pleural effusion s is not excluded OTHER: No free air under the diaphragm. IMPRESSION: Atelectasis versus pneumonia in the left upper lobe and both lower lobes with bilateral pleural effus ion. Follow-up to resolution is advised Reviewed, dictated and finalized at location A. IMPRESSION: Atelectasis versus pneumonia in the left upper lobe and both lower lobes with b ilateral pleural effusion. Follow-up to resolution is advised
[2025-05-27 19:50] LABS: Add Urine Microscopic? YES; Appearance Urine Cloudy (Clear); Glucose Urine UA Negative (Negative); Leukocyte Esterase Ur Trace LEU/UL (Negative); Nitrate Urine Negative (Negative); Non Pathogenic Casts >20; Specific Grav Ur 1.021 (1.001-1.035)
--- NOTE | 2025-05-27 19:53 | ED_ITS ---
HPI - General Adult General Chief complaint: Unspecified Stated complaint: many complaints Time Seen by Provider: 05/27/25 19:19 Source: patient Mode of arrival: ambulatory Limitations: no limitations History of Present Illness HPI narrative: Patient presents with multiple concerns. He states he was recently hospitalized here for pneumonia and fibrillation.He states this he has a weak stream when he attempts to urinate. It is difficult for him to identify if he is having trouble initiating stream. He states he leaks urine but his description does not sound like incontinence but rather when he intends to urinate the flow is diminished. He believes that he has seen a urologist here at [facility] but cannot remember the name. Denies any other penile drainage. He is also concerned because he has had diminished hearing in bilateral ears. Denies any tinnitus or ear pain. States that he chronically has your problems where it will sound like he is in a tunnel but it usually resolves on its own and this 1 has not. Denies any fevers. No drainage. Has never seen ENT. Notes that he is to wear oxygen at night. He denies any chest pain. Primary care physician is Dr. Downing. Related Data Home Medications ?Medication ?Instructions ?Recorded ?Confirmed ?Last Taken ?Type adalimumab 40 mg/0.8 mL See Rx Instructions subcut .COMPLEX 01/13/20 05/28/25 05/28/25 History subcutaneous syringe kit (Humira) multivitamin 1 tablet PO DAILY 01/09/23 05/28/25 05/27/25 History L.acid,par,plant,rham-B.anim,bif,brev,inf,long 1 cap PO DAILY 05/02/25 05/28/25 05/27/25 History 30 billion cell capsule (Probiotic Digestive Health) aspirin 81 mg capsule 81 mg PO DAILY 05/02/25 05/28/25 05/27/25 History cyanocobalamin (vitamin B-12) 500 500 mcg PO DAILY 05/02/25 05/28/25 05/27/25 History mcg tablet (B-12 DOTS) omega 9-xok-erq-fish oil 1,200 mg 1 cap PO DAILY 05/02/25 05/28/25 Unknown History (144 mg-216 mg) capsule (Fish Oil) tamsulosin 0.4 mg capsule 0.4 mg PO QHS 05/06/25 05/28/25 Unknown History albuterol sulfate 90 mcg/actuation 2 puff inhalation Q6H PRN 05/28/25 05/28/25 Unknown History aerosol inhaler shortness of breath or wheezing Allergies Allergy/AdvReac Type Severity Reaction Status Date / Time No Known Allergies Allergy Unknown Verified 07/01/24 10:25 [facility] Past Medical History Medical History (Updated 05/28/25 @ 08:33 by Ezequiel Hutchinson, DO) Heart failure with preserved ejection fraction Chronic obstructive pulmonary disease Prediabetes Atrial fibrillation Lung nodules Umbilical hernia Brain aneurysm Enlarged prostate with lower urinary tract symptoms (LUTS) Essential (primary) hypertension Obstructive sleep apnea (adult) (pediatric) Other psoriatic arthropathy Polyosteoarthritis, unspecified Psoriasis vulgaris Vitamin D deficiency Surgical History Surgical History (Updated 05/28/25 @ 06:24 by Sherin Barraza PA-C) History of arthroscopic knee surgery S/P coil embolization of cerebral aneurysm per CT 05/27/25 interpretation Family History Family History Father Diabetes mellitus Family history of diabetes mellitus in first degree relative, Onset Age: 62 Patient's father is Mother Family history of heart disease in male family member before age 55, Onset Age: 81 Family history of cardiovascular disease Patient's mother is Sibling History of open heart surgery Social History Social History (Updated 05/28/25 @ 06:25 by Sherin Barraza PA-C) Social History: Surrogate medical decision maker: Maura Castillo, daughter. Code status: Full code. Smoking packs per day: 2 Smoking cigarettes per day: 40.0 Years smoked: 40 Smoking pack-years: 80.00 Smoking status: Former smoker Tobacco type: cigarettes, cigars and e-cigarettes/vaping Second hand tobacco smoke exposure: Yes Smoking end date: 12/02/16 Alcohol intake: current Drinks per week: 1 Substance use: current Substance use type: marijuana Other substance usage details: COUPLE TIMES A WEEK Do You Feel Safe in your Home?: Yes Lack of Transportation: YES Lack of Food: Never True Current Housing: I Have Housing Concerned About Future Housing: No Difficulty Paying Gas/Electric Bills: No Difficulty Paying for Meds: No Currently Unemployed: No Education: Grade School Difficulty w/ Childcare or Family Care: No Living arrangements: with family Spiritual care concerns: No Exam 2 Narrative: GENERAL: well-nourished, and in no acute distress. HEAD: Normocephalic, atraumatic. EYES: Non injected, non icteric ENT: Nares clear, no rhinorrhea or epistaxis. Gross auditory acuity intact although patient reports diminished. Can hear when spoken to on both sides of the body. No drainage. External auditory canals normal. Bilateral tympanic membranes visualized without erythema, bulging, effusion. NECK: Supple. No meningismus. CHEST: Speaking in full sentences. No respiratory distress. HEART: Bradycardic and rhythm. . ABDOMEN: Soft, nondistended. No rigidity or guarding. Not peritoneal EXTREMITIES: Normal range of motion. No lower extremity edema. SKIN: Warm, dry, no rash. NEURO: No focal deficits. Alert and oriented. Answering questions. Following commands. Normal speech without aphasia or dysarthria. PSYCH: Normal mood and affect. Course Vital Signs Vital signs: Vital Signs Temperature 97.6 F 05/27/25 16:58 Pulse Rate 53 L 05/27/25 16:58 Respiratory Rate 16 05/27/25 16:58 Blood Pressure 113/67 05/27/25 16:58 Pulse Oximetry 96 05/27/25 16:58 Temperature 97.7 F 05/29/25 04:00 Pulse Rate 83 05/29/25 04:00 Respiratory Rate 20 05/29/25 04:00 Blood Pressure 106/66 05/29/25 04:00 Pulse Oximetry 97 05/29/25 04:00 Oxygen Delivery Nasal Cannula 05/29/25 04:00 Oxygen Flow Rate 2 05/29/25 04:00 Medical Decision Making [facility] Narrative Medical decision making narrative: Patient presents with several concerns. He states he was recently admitted for pneumonia and fibrillation.He is concerned because he is having diminished hearing bilaterally. In addition, he is concerned for a weak urinary stream. In the emergency department he is afebrile with vital signs notable for bradycardia. Urinalysis with microscopic hematuria. While patient was in the emergency department, EKG shows atrial fibrillation with rapid ventricular response at a rate of 127. He is noted to be ranging the 120s - 140s on the monitor at this time. He is on both diltiazem and metoprolol at home. An IV was placed and the patient was put on cardiac and pulse oximetry monitors. Patient hemodynamically stable thus early priority in management was to slow the ventricular rate using diltiazem 0.25mg/kg = approximately 20 mg There are diffuse T-wave inversions on initial EKG when patient is in AFib with RVR. After receiving diltiazem, he rate controls but continues to have the diffuse T waves. Will obtain troponin given these new findings. He continues to deny any chest pain. Patient successfully rate-controlled with this dose. He has a leukocytosis. This has been chronic. Patient has an acute kidney injury. 1 L IV fluids ordered. Chronic AST and ALT elevation per review of the EMR. Patient stated that he takes his diltiazem at home. He states it is a yellow pill. In looking through his pill bottles, however, the yellow pill is digoxin and he states he has been taking this. Diltiazem bottle is empty. He was given a 15 days supply which was prescribed as two 180mg tablets to be taken daily, total 360mg. He states he ran out of this medication 2 days ago. Had not gotten a refill from his primary care physician Dr. Downing. He thought maybe he was supposed to follow-up with Dr Cortés (hospitalist) for a refill. He also states that he stop taking the Eliquis because he thought he was supposed to. Reviewed discharge instructions with him that show he was supposed to continue taking this. Patient's troponin is >5 (157 times the upper limit normal). Patient given aspirin. 3 hour troponin ordered. Patient is reassessed at bedside at 10:35 p.m.. He is informed of the findings thus far (pending CT interpretation) and that this will require him to be admitted. He states that his cardiac enzyme is elevated due to stress...probably because of my daughter. Confirms full code status. Denies chest pain. BNP >30,000 and trace pleural effusions on CXR. Will now give Lasix given coarse/crackles on breath sounds now. No PE on CT. Only small pleural effusions as appreciated on chest x-ray. Heparin gtt started. Had discussed patient with MARILIN Duff prior to CT interpretation. IMU given NSTEMI. Cardiology consult placed. Because he became rate controlled with the initial dose of diltiazem that was use, 30 mg p.o. diltiazem q.6 hours with holding parameters is ordered. Differential Diagnosis Differential Diagnosis: acute otitis media/otitis externa; BPH; urethral stricture; acute kidney failure/WILLIAM; sensorineural hearing loss, conductive hearing loss?and mixed hearing loss. Ototoxic medication Vital Signs Vital Signs: Vital Signs Temperature 97.6 F 05/27/25 16:58 Pulse Rate 53 L 05/27/25 16:58 Respiratory Rate 16 05/27/25 16:58 Blood Pressure 113/67 05/27/25 16:58 Pulse Oximetry 96 05/27/25 16:58 Temperature 97.7 F 05/29/25 04:00 Pulse Rate 83 05/29/25 04:00 Respiratory Rate 20 05/29/25 04:00 Blood Pressure 106/66 05/29/25 04:00 Pulse Oximetry 97 05/29/25 04:00 Oxygen Delivery Nasal Cannula 05/29/25 04:00 Oxygen Flow Rate 2 05/29/25 04:00 Lab Data Lab results reviewed: Yes I reviewed the patient's lab results. 05/28/25 03:20 05/28/25 06:17 Labs: Lab Results 05/27/25 05/27/25 05/27/25 Range/Units 19:39 20:21 20:22 WBC 18.0 H (4.5-10.0) K/mm3 RBC 4.77 (4.6-6.20) M/mm3 Hgb 14.8 (14.0-18.0) g/dL Hct 45.0 (42.0-52.0) % MCV 94.3 (80-100) fl MCH 31.0 (26-34) pg MCHC 32.9 (32-36) g/dl RDW 15.1 H (11.5-14.5) % Plt Count 175 (150-375) k/mm3 MPV 11.8 H (7.4-10.4) fl Immature Gran % (Auto) 0.4 (0-0.5) % Neut % (Auto) 61.5 (45.5-73.1) % Lymph % (Auto) 25.6 (18.3-44.2) % [place] % (Auto) 12.2 H (2.6-8.5) % Eos % (Auto) 0.1 (0-4.4) % Baso % (Auto) 0.2 (0.2-1.2) % Lymph # (Auto) 4.61 H (0.9-3.2) K/mm3 [place] # (Auto) 2.2 H (0.1-0.6) K/mm3 Eos # (Auto) 0.0 (0-0.3) K/mm3 Baso # (Auto) 0.0 (0.0-0.1) K/mm3 Abs Immat Gran (auto) 0.07 H (0.00-0.031) K/mm3 Absolute Neuts (auto) 11.1 H (1.3-6.7) K/mm3 Absolute Nucleated RBC 0.000 (0.0-0.012) K/mm3 Nucleated RBC % 0.0 (0.0-0.2) % PT 17.2 H (11.1-14.7) Seconds INR 1.4 APTT 33.5 (22.3-36.8) Seconds D-Dimer 0.99 H (<0.48) ug/mL Sodium 134 L (137-145) mmol/L Potassium 4.9 (3.4-5.0) mmol/L Chloride 101 (98-107) mmol/L Carbon Dioxide 22 (22-30) mmol/L Anion Gap 11 (4-12) mmol/L BUN 44 H D (9-20) mg/dL Creatinine 1.85 H (0.7-1.3) mg/dL Estim Creat Clear Calc 29 ml/min Estimated GFR 36 L (59 - ) Glucose 123 H (65-110) mg/dL Calcium 9.0 (8.4-10.2) mg/dL Magnesium 1.9 (1.6-2.3) mg/dL Total Bilirubin 1.6 H (0.2-1.3) mg/dL AST 73 H (17-59) U/L ALT 53 H (6-50) U/L Alkaline Phosphatase 67 (38-126) U/L Troponin I 5.340 H* (0.000-0.034) ng/mL NT-Pro-B Natriuret Pep (19.9-100) pg/mL Total Protein 7.1 (6.3-8.2) g/dL Albumin 3.6 (3.5-5.1) g/dL Lipase 14 L (23-300) U/L Procalcitonin ng/mL Urine Color Dark yellow (Yellow) Urine Appearance Cloudy H (Clear) Urine pH 5.0 (5.0-9.0) Ur Specific Roe 1.021 (1.001-1.035) Urine Protein 1+ H (Negative) mg/dL Urine Glucose (UA) Negative (Negative) mg/dL Urine Ketones Trace H (Negative) mg/dL Ur Blood (Man) Negative (Negative) Urine Nitrate Negative (Negative) Urine Bilirubin 1+ H (Negative) Urine Urobilinogen 1.0 (<2.0) mg/dL Leukocyte Esterase Rfl Trace H (Negative) ARLENE/UL Urine RBC 3-5 H (0-2) /hpf Urine WBC 0-5 (0-3) /hpf Ur Squamous Epith Cells None seen (Few) /hpf Urine Bacteria None seen /hpf Urine Casts >20 Hyaline Casts 20-29 H (None) /lpf 05/27/25 05/27/25 05/28/25 Range/Units 21:26 23:40 03:20 WBC 18.6 H (4.5-10.0) K/mm3 RBC 4.59 L (4.6-6.20) M/mm3 Hgb 14.3 (14.0-18.0) g/dL Hct 42.4 (42.0-52.0) % MCV 92.4 (80-100) fl MCH 31.2 (26-34) pg MCHC 33.7 (32-36) g/dl RDW 15.3 H (11.5-14.5) % Plt Count 156 (150-375) k/mm3 MPV 11.5 H (7.4-10.4) fl Immature Gran % (Auto) 0.6 H (0-0.5) % Neut % (Auto) 65.7 (45.5-73.1) % Lymph % (Auto) 23.1 (18.3-44.2) % [place] % (Auto) 10.3 H (2.6-8.5) % Eos % (Auto) 0.1 (0-4.4) % Baso % (Auto) 0.2 (0.2-1.2) % Lymph # (Auto) 4.30 H (0.9-3.2) K/mm3 [place] # (Auto) 1.9 H (0.1-0.6) K/mm3 Eos # (Auto) 0.0 (0-0.3) K/mm3 Baso # (Auto) 0.0 (0.0-0.1) K/mm3 Abs Immat Gran (auto) 0.11 H (0.00-0.031) K/mm3 Absolute Neuts (auto) 12.2 H (1.3-6.7) K/mm3 Absolute Nucleated RBC 0.000 (0.0-0.012) K/mm3 Nucleated RBC % 0.0 (0.0-0.2) % PT (11.1-14.7) Seconds INR APTT (22.3-36.8) Seconds D-Dimer (<0.48) ug/mL Sodium (137-145) mmol/L Potassium (3.4-5.0) mmol/L Chloride (98-107) mmol/L Carbon Dioxide (22-30) mmol/L Anion Gap (4-12) mmol/L BUN (9-20) mg/dL Creatinine (0.7-1.3) mg/dL Estim Creat Clear Calc ml/min Estimated GFR (59 - ) Glucose (65-110) mg/dL Calcium (8.4-10.2) mg/dL Magnesium (1.6-2.3) mg/dL Total Bilirubin (0.2-1.3) mg/dL AST (17-59) U/L ALT (6-50) U/L Alkaline Phosphatase (38-126) U/L Troponin I 5.660 H* 5.500 H* (0.000-0.034) ng/mL NT-Pro-B Natriuret Pep > 27846 H (19.9-100) pg/mL Total Protein (6.3-8.2) g/dL Albumin (3.5-5.1) g/dL Lipase (23-300) U/L Procalcitonin ng/mL Urine Color (Yellow) Urine Appearance (Clear) Urine pH (5.0-9.0) Ur Specific Roe (1.001-1.035) Urine Protein (Negative) mg/dL Urine Glucose (UA) (Negative) mg/dL Urine Ketones (Negative) mg/dL Ur Blood (Man) (Negative) Urine Nitrate (Negative) Urine Bilirubin (Negative) Urine Urobilinogen (<2.0) mg/dL Leukocyte Esterase Rfl (Negative) ARLENE/UL Urine RBC (0-2) /hpf Urine WBC (0-3) /hpf Ur Squamous Epith Cells (Few) /hpf Urine Bacteria /hpf Urine Casts Hyaline Casts (None) /lpf 05/28/25 Range/Units 06:17 WBC (4.5-10.0) K/mm3 RBC (4.6-6.20) M/mm3 Hgb (14.0-18.0) g/dL Hct (42.0-52.0) % MCV (80-100) fl MCH (26-34) pg MCHC (32-36) g/dl RDW (11.5-14.5) % Plt Count (150-375) k/mm3 MPV (7.4-10.4) fl Immature Gran % (Auto) (0-0.5) % Neut % (Auto) (45.5-73.1) % Lymph % (Auto) (18.3-44.2) % [place] % (Auto) (2.6-8.5) % Eos % (Auto) (0-4.4) % Baso % (Auto) (0.2-1.2) % Lymph # (Auto) (0.9-3.2) K/mm3 [place] # (Auto) (0.1-0.6) K/mm3 Eos # (Auto) (0-0.3) K/mm3 Baso # (Auto) (0.0-0.1) K/mm3 Abs Immat Gran (auto) (0.00-0.031) K/mm3 Absolute Neuts (auto) (1.3-6.7) K/mm3 Absolute Nucleated RBC (0.0-0.012) K/mm3 Nucleated RBC % (0.0-0.2) % PT 18.0 H (11.1-14.7) Seconds INR 1.5 APTT 58.2 H (22.3-36.8) Seconds D-Dimer (<0.48) ug/mL Sodium 133 L (137-145) mmol/L Potassium 4.7 (3.4-5.0) mmol/L Chloride 103 (98-107) mmol/L Carbon Dioxide 17 L (22-30) mmol/L Anion Gap 13 H (4-12) mmol/L BUN 46 H (9-20) mg/dL Creatinine 1.64 H (0.7-1.3) mg/dL Estim Creat Clear Calc 33 ml/min Estimated GFR 41 L (59 - ) Glucose 123 H (65-110) mg/dL Calcium 8.6 (8.4-10.2) mg/dL Magnesium (1.6-2.3) mg/dL Total Bilirubin 1.6 H (0.2-1.3) mg/dL AST 72 H (17-59) U/L ALT 52 H (6-50) U/L Alkaline Phosphatase 69 (38-126) U/L Troponin I (0.000-0.034) ng/mL NT-Pro-B Natriuret Pep (19.9-100) pg/mL Total Protein 6.7 (6.3-8.2) g/dL Albumin 3.4 L (3.5-5.1) g/dL Lipase (23-300) U/L Procalcitonin 0.6 ng/mL Urine Color (Yellow) Urine Appearance (Clear) Urine pH (5.0-9.0) Ur Specific Roe (1.001-1.035) Urine Protein (Negative) mg/dL Urine Glucose (UA) (Negative) mg/dL Urine Ketones (Negative) mg/dL Ur Blood (Man) (Negative) Urine Nitrate (Negative) Urine Bilirubin (Negative) Urine Urobilinogen (<2.0) mg/dL Leukocyte Esterase Rfl (Negative) ARLENE/UL Urine RBC (0-2) /hpf Urine WBC (0-3) /hpf Ur Squamous Epith Cells (Few) /hpf Urine Bacteria /hpf Urine Casts Hyaline Casts (None) /lpf Imaging Data Radiologist's impression: STAT RAD: CT IAC/MASTOID BI wo contrast: Negative CT scan of the temporal bones. No comparisons. Status post anterior Torecan artery aneurysm coil. IMPRESSION: Trace bilateral pleural effusions with adjacent compressive atelectasis. IMPRESSION: No pulmonary embolus. No aortic dissection. Small bilateral pleural effusions with adjacent compressive atelectasis. Gallbladder distention with mural thickening and trace surrounding inflammatory change, which may be related to vascular congestion and fluid overload rather than inflammatory gallbladder disease, for which clinical (and serologic) correlation is needed. ECG Data EKG #1: Attestation: I personally reviewed and interpreted this ECG as follows: ECG completion date: 05/27/25 ECG completion time: 20:20 Interpretation: Irregularly irregular rhythm without P-waves at a rate of 127 beats per minute. QRS 85. QT/QTC 306/381. Good R-wave progression across the precordial leads. There do appear to be T-wave inversions in the inferior leads. Also T-wave inversions in precordial leads V4 V5 and V6. EKG from 05/06/2025 did not show similar T-wave inversions. EKG #2: Attestation: I personally reviewed and interpreted this ECG as follows: ECG completion date: 05/27/25 ECG completion time: 21:24 Interpretation: Atrial fibrillation at a rate of 96 beats per minute. QRS 80. QT/QTC 365/419. Patient continues to have T-wave inversions in inferior leads as well as in lateral precordial leads V5 and V6. Discharge Plan Discharge Clinical Impression: Microscopic hematuria, Weak urinary stream, Decreased hearing of both ears, Atrial fibrillation with rapid ventricular response, Leukocytosis, WILLIAM (acute kidney injury), Non-ST elevation ID (NSTEMI), T wave inversion in EKG, Bilateral pleural effusion Patient Disposition: Still a Patient Condition: Stable Time of Disposition: 23:07
--- NOTE | 2025-05-27 20:17 | ECG_ITS ---
Test Date: 2025-05-27 20:20:38 Measurements Intervals [place] Rate: 127 P: 0 HI: 0 QRS: 70 QRSD: 85 T: 230 QT: 306 QTc: 446 Interpretive Statements ATRIAL FIBRILLATION WITH RAPID VENTRICULAR RESPONSE WITH ABERRANT CONDUCTION OR VENTRICULAR PREMATURE COMPLEXES CANNOT R/O SEPTAL INFARCT, AGE INDETERMINATE ST-T WAVE ABNORMALITY IN INF/LAT LEADS- CONSIDER ISCHEMIA BASELINE ARTIFACT- I, II, AVR, AVL ABNORMAL ECG Compared to ECG 05/06/2025 13:38:23 ST-T WAVE ABNORMALITY NOW PRESENT POSSIBLE ISCHEMIA NOW PRESENT Electronically Signed On 05-27-2025 20:29:36 CDT by Ezequiel Hutchinson D.O.
[2025-05-27 20:28] LABS: Hematocrit 45.0 % (42.0-52.0); Hemoglobin 14.8 g/dL (14.0-18.0); Immature Granulocyte Percent A 0.4 % (0-0.5); Lymphocytes Absolute Auto 4.61 K/mm3 (0.9-3.2); Mean Corpuscular HGB Conc 32.9 g/dl (32-36); Mean Corpuscular Hemoglobin 31.0 pg (26-34); Mean Corpuscular Volume 94.3 fl (80-100); Nucleated Red Blood Cells Absolute Auto 0.000 K/mm3 (0.0-0.012); Nucleated Red Blood Cells Perc 0.0 % (0.0-0.2); Platelet Count Result 175 k/mm3 (150-375); Red Blood Count 4.77 M/mm3 (4.6-6.20); White Blood Count 18.0 K/mm3 (4.5-10.0)
[2025-05-27 20:38] LABS: Alanine Aminotransferase 53 U/L (6-50); Albumin Level 3.6 g/dL (3.5-5.1); Alkaline Phosphatase 67 U/L (38-126); Anion Gap 11 mmol/L (4-12); Aspartate Amino Transferase 73 U/L (17-59); Bilirubin,Total 1.6 mg/dL (0.2-1.3); Blood Urea Nitrogen 44 mg/dL (9-20); Calcium 9.0 mg/dL (8.4-10.2); Carbon Dioxide 22 mmol/L (22-30); Chloride 101 mmol/L (98-107); Estimated CRCL calculation 29 ml/min; Estimated Glomerular Filt Rate 36; Glucose 123 mg/dL (65-110); Potassium 4.9 mmol/L (3.4-5.0); Sodium 134 mmol/L (137-145); Total Protein 7.1 g/dL (6.3-8.2)
--- NOTE | 2025-05-27 20:41 | PC.NURSE ---
2022:Patient noted to be tachy on pulse ox. Patient placed on equipment monitor phototypesetting by this RN and noted to be in afib. EKG ordered, completed and given to provider.
[2025-05-27] MEDS: SODIUM CHLORIDE 0.9% IV 1,000 ML 999 ML IV CONT (20:55)
[2025-05-27 21:02] LABS: Lipase 14 U/L (23-300)
--- NOTE | 2025-05-27 21:06 | ECG_ITS ---
Test Date: 2025-05-27 21:24:47 Measurements Intervals [place] Rate: 96 P: 0 PA: 0 QRS: 73 QRSD: 80 T: 253 QT: 365 QTc: 463 Interpretive Statements ATRIAL FIBRILLATION WITH ABERRANT CONDUCTION OR VENTRICULAR PREMATURE COMPLEXES LOW QRS VOLTAGE IN LIMB LEADS ANTEROSEPTAL INFARCT, AGE INDETERMINATE ST-T WAVE ABNORMALITY IN INF/LAT LEADS- CONSIDER ISCHEMIA BASELINE ARTIFACT- I, II, III, AVR, AVL, AVF ABNORMAL ECG Compared to ECG 05/27/2025 20:20:38 HEART RATE HAS DECREASED Electronically Signed On 05-28-2025 06:06:39 CDT by Ezequiel Hutchinson D.O.
[2025-05-27 21:50] LABS: Magnesium 1.9 mg/dL (1.6-2.3)
[2025-05-27 22:04] LABS: Troponin I 5.340 ng/mL (0.000-0.034)
[2025-05-27] MEDS: ASPIRIN 81 MG CHEWABLE TABLET 324 MG PO (22:19)
[2025-05-27] MEDS: BENZONATATE 100 MG CAPSULE PO (22:22)
[2025-05-27 22:46] LABS: NT Pro B Type Natriuretic Pept > 30000 pg/mL (19.9-100)
[2025-05-27 23:17] LABS: INR 1.4; Prothrombin Time 17.2 Seconds (11.1-14.7)
[2025-05-27 23:18] LABS: Partial Thromboplastin Time 33.5 Seconds (22.3-36.8)
[2025-05-27] MEDS: HEPARIN SOD/D5W 100 UNITS/ML 25,000 UNITS/250 ML BAG 9 UNITS IV CONT (23:48)
[2025-05-27] MEDS: FUROSEMIDE INJ 40 MG/4 ML VIAL IV PUSH (23:51)
[2025-05-28] VITALS (25 sets, daily range): BP systolic 100–119; BP diastolic 69–94; PULSE 85–145; RESP 13–30; TEMP 36.4–36.6; O2SAT 94–97; BMI 24.5
--- NOTE | 2025-05-28 | ECHO_ITS ---
Patient Info Name: Dickson Sorensen Age: 79 years : 1945 Gender: Male Ht: 69 in Wt: 163 lbs BSA: 1.90 m2 HR: 103 bpm BP: 118 / 72 mmHg Technical Quality: Good Exam Date: 05/28/2025 1:57 PM Patient Status: I Admit Date: 05/28/2025 Exam Type: CA echo limited w contrast Limited two-dimensional transthoracic echocardiogram is performed with contrast. Staff Referring Physician: Mindy Hernandez [employer] Teacher: Radha Pedroza Attending Provider: Krystal Kaur Contrast/Agitated Saline Contrast/Ag. Saline: Definity Amount: 2.00 ml Administered By: Radha Pedroza Existing IV Access: Yes IV Access Condition: patent with no signs of infiltration Summary 1. Definity contrast administered improved wall motion interpretation. 2. Left ventricular chamber dimension is severely enlarged. 3. Left ventricular systolic function is severely globally reduced, estimated at 15-20. Only small basal segments have normal contractility suggestive of Takotsubo cardiomyopathy. 4. The left ventricular diastolic function is indeterminate as it was not assessed. 5. Limited echo to check EF and wall motion abnormalities. Left Ventricle Definity contrast administered improved wall motion interpretation. Left ventricular chamber dimension is severely enlarged. Left ventricular systolic function is severely globally reduced, estimated at 15-20. Only small basal segments have normal contractility suggestive of Takotsubo cardiomyopathy. The left ventricular diastolic function is indeterminate as it was not assessed. Limited echo to check EF and wall motion abnormalities. Ventricles Name Value Normal LV Fractional Shortening/Ejection Fraction 2D/MM LV Diastolic Volume (4C MOD) 143 ml LV EF (4C MOD) 12 % LV Diastolic Volume (2C MOD) 127 ml LV EF (2C MOD) 30 % LV Diastolic Volume (BP MOD) 135 ml 62-150 LV Diastolic Volume Index (BP MOD) 71 ml/m2 34-74 LV Systolic Volume (BP MOD) 109 ml 21-61 LV Systolic Volume Index (BP MOD) 57 ml/m2 11-31 LV EF (BP MOD) 19 % 52-72 LV Diastolic Length (4C) 9.9 cm LV Systolic Length (4C) 9.3 cm LV Stroke Volume (4C MOD) 17 ml Report Signatures
[2025-05-28 00:10] LABS: Troponin I 5.660 ng/mL (0.000-0.034)
--- NOTE | 2025-05-28 02:15 | PC.NURSE ---
0211 report received from ISHAN Franco.
--- NOTE | 2025-05-28 02:45 | ADMGEN ---
This patient, Dickson Sorensen, was admitted to IMU Room 207-01 on 05/28/25 at 0225. Patient/family oriented to hospital policies and general routines including ID bracelet, bed and alarms, visiting hours, pain management, procedures, bathroom and other care routines, personal items, smoking policy, room service/diet, and visiting hours. Information on how to activate the Rapid Response Team has been discussed. Patient/Family are encouraged to report perceived risks to care and to ask questions if they do not understand what they are told or what they should do.
[2025-05-28 03:25] LABS: Hematocrit 42.4 % (42.0-52.0); Hemoglobin 14.3 g/dL (14.0-18.0); Immature Granulocyte Percent A 0.6 % (0-0.5); Lymphocytes Absolute Auto 4.30 K/mm3 (0.9-3.2); Mean Corpuscular HGB Conc 33.7 g/dl (32-36); Mean Corpuscular Hemoglobin 31.2 pg (26-34); Mean Corpuscular Volume 92.4 fl (80-100); Nucleated Red Blood Cells Absolute Auto 0.000 K/mm3 (0.0-0.012); Nucleated Red Blood Cells Perc 0.0 % (0.0-0.2); Platelet Count Result 156 k/mm3 (150-375); Red Blood Count 4.59 M/mm3 (4.6-6.20); White Blood Count 18.6 K/mm3 (4.5-10.0)
[2025-05-28 03:49] LABS: Troponin I 5.500 ng/mL (0.000-0.034)
--- NOTE | 2025-05-28 03:55 | PM.IMHP ---
H&P: HPI History of Present Illness Date/Time: 05/28/25 04:00 Chief Complaint: Several complaints. Narrative: This is a 79-year-old male with history of atrial fibrillation, hypertension, hepatitis-C, chronic kidney disease stage 3, chronic obstructive pulmonary disease, prediabetes, obstructive sleep apnea, benign prostatic hyperplasia, and cerebral aneurysm status post coil who presented to the emergency department via private vehicle from home with several complaints. He was admitted to the hospital earlier this month with pneumonia and ?I think its back again? although he has difficulties elaborating. He says that he is short of breath but has been so for a year or more. He has an occasional cough which is occasionally productive although he cannot describe his sputum quality or quantity. He does report that his appetite has not been great since his hospitalization. He is having difficulties starting his urine stream and he also mentions that he has been out of his tamsulosin for a bit. Additionally he complains of fullness in his ears, on losses though he is underwater, which has been occurring off and on for quite some time. After extensive questioning, it sounds as though overall he is just not feeling well with generalized malaise and weakness. He cannot really pinpoint any one specific symptom. He denies fever, chills, sweats, sinus congestion, sore throat, dysphagia, concerns for aspiration, chest pain, pleuritic pain, palpitations, abdominal pain, nausea, vomiting, diarrhea, dysuria, lower extremity edema, and calf pain. In the ED: Vital signs on arrival include a temperature of 97.6?, blood pressure 113/67, pulse 53, respiratory rate 16, SpO2 96% on room air. Labs were significant for a WBC count of 18.0, D-dimer 0.99, sodium 134, BUN 44, creatinine 1.85, glucose 123, total bilirubin 1.6, AST 73, ALT 53, alkaline phosphatase 67, troponin 5.340, proBNP greater than 30,000. EKG showed T-wave inversions concerning for ischemia in the inferior lateral leads. CTA of the chest, abdomen, and pelvis was negative for pulmonary embolism and aortic dissection. Small bilateral pleural effusions with adjacent compressive atelectasis was noted as well as gallbladder distension with mural thickening and trace surrounding inflammatory change which may be related to vascular congestion and fluid overload. A few hours after presentation, he went into rapid atrial fibrillation with rates into the 120s to 140s. He has been rate controlled since receiving an IV diltiazem bolus. During his most recent hospitalization, there were difficulties controlling his rate and diltiazem was increased to 360 mg daily. He has been out of this medication for several days however. Additionally, he seems to be confused about whether not he is supposed to be taking apixaban and he states that he has not been taking it for unclear reasons. He was started on a heparin drip for non STEMI and is being admitted to the IMU in this setting for close monitoring and Cardiology consultation. Review of Systems Review of Systems: 12 systems were reviewed and are negative except for as per HPI. [facility] Past Medical History Medical History (Updated 05/28/25 @ 06:29 by Sherin Barraza PA-C) Heart failure with preserved ejection fraction Chronic obstructive pulmonary disease Prediabetes Atrial fibrillation Lung nodules Umbilical hernia Brain aneurysm Enlarged prostate with lower urinary tract symptoms (LUTS) Essential (primary) hypertension Obstructive sleep apnea (adult) (pediatric) Other psoriatic arthropathy Polyosteoarthritis, unspecified Psoriasis vulgaris Vitamin D deficiency Surgical History Surgical History (Updated 05/28/25 @ 06:24 by Sherin Barraza PA-C) History of arthroscopic knee surgery S/P coil embolization of cerebral aneurysm per CT 05/27/25 interpretation Family History Family History Father Diabetes mellitus Family history of diabetes mellitus in first degree relative, Onset Age: 62 Patient's father is Mother Family history of heart disease in male family member before age 55, Onset Age: 81 Family history of cardiovascular disease Patient's mother is Sibling History of open heart surgery Social History Social History (Updated 05/28/25 @ 06:25 by Sherin Barraza PA-C) Social History: Surrogate medical decision maker: Maura Castillo, daughter. Code status: Full code. Smoking packs per day: 2 Smoking cigarettes per day: 40.0 Years smoked: 40 Smoking pack-years: 80.00 Smoking status: Former smoker Tobacco type: cigarettes, cigars and e-cigarettes/vaping Second hand tobacco smoke exposure: Yes Smoking end date: 12/02/16 Alcohol intake: current Drinks per week: 1 Substance use: current Substance use type: marijuana Other substance usage details: COUPLE TIMES A WEEK Do You Feel Safe in your Home?: Yes Lack of Transportation: YES Lack of Food: Never True Current Housing: I Have Housing Concerned About Future Housing: No Difficulty Paying Gas/Electric Bills: No Difficulty Paying for Meds: No Currently Unemployed: No Education: Grade School Difficulty w/ Childcare or Family Care: No Living arrangements: with family Spiritual care concerns: No Meds Home Medications and Allergies Home Medications ?Medication ?Instructions ?Recorded ?Confirmed ?Type adalimumab 40 mg/0.8 mL See Rx Instructions subcut .COMPLEX 01/13/20 05/28/25 History subcutaneous syringe kit (Humira) multivitamin 1 tablet PO DAILY 01/09/23 05/28/25 History apixaban 2.5 mg tablet (Eliquis) See Rx Instructions .Route 09/30/24 05/28/25 Rx .COMPLEX #60 tabs L.acid,par,plant,rham-B.anim,bif,brev,inf,long 1 cap PO DAILY 05/02/25 05/28/25 History 30 billion cell capsule (Probiotic Digestive Health) aspirin 81 mg capsule 81 mg PO DAILY 05/02/25 05/28/25 History cyanocobalamin (vitamin B-12) 500 500 mcg PO DAILY 05/02/25 05/28/25 History mcg tablet (B-12 DOTS) omega 2-sya-kml-fish oil 1,200 mg 1 cap PO DAILY 05/02/25 05/28/25 History (144 mg-216 mg) capsule (Fish Oil) tamsulosin 0.4 mg capsule 0.4 mg PO QHS 05/06/25 05/28/25 History calcium carbonate 400 mg (0.8 x 500 mg calcium 05/08/25 05/28/25 Rx (1,250 mg)) PO Q6H PRN Indigestion #30 tabs digoxin 125 mcg (0.125 mg) tablet 125 mcg PO QAM #30 tabs 05/08/25 05/28/25 Rx diltiazem HCl 180 mg 360 mg (2 x 180 mg) BYMOUTH DAILY 05/08/25 05/28/25 Rx capsule,extended release 24 hr, #30 caps controlled metoprolol succinate 100 mg 100 mg PO QHS #30 tabs 05/08/25 05/28/25 Rx tablet,extended release 24 hr (Toprol XL) umeclidinium 62.5 mcg/actuation 62.5 mcg inhalation DAILYRT #30 ea 05/08/25 05/28/25 Rx blister powder for inhalation (Incruse Ellipta) hydrocodone 7.5 mg-acetaminophen 1 tablet PO Q6H PRN pain #110 tabs 05/10/25 05/28/25 Rx 325 mg tablet Allergies Allergy/AdvReac Type Severity Reaction Status Date / Time No Known Allergies Allergy Unknown Verified 07/01/24 10:25 Vital Signs Vital Signs - 24 hr 05/27/25 16:58 05/27/25 19:41 05/27/25 20:22 Temperature 97.6 F Pulse Rate 53 L 56 L 142 H Respiratory Rate 16 18 22 H Blood Pressure 113/67 104/82 108/79 Pulse Oximetry 96 97 96 05/27/25 20:23 05/27/25 20:57 05/27/25 21:00 Temperature Pulse Rate 145 H 134 H 107 H Respiratory Rate Blood Pressure 108/88 Pulse Oximetry 98 05/27/25 21:19 05/27/25 21:32 05/27/25 22:20 Temperature Pulse Rate 95 93 100 Respiratory Rate 18 18 18 Blood Pressure 92/73 L 125/71 102/67 Pulse Oximetry 97 97 05/27/25 23:55 05/28/25 00:25 05/28/25 01:29 Temperature 97.9 F Pulse Rate 113 H 133 H 145 H Respiratory Rate 14 26 H 23 H Blood Pressure 116/80 Pulse Oximetry 95 96 05/28/25 01:30 05/28/25 01:31 05/28/25 01:45 Temperature Pulse Rate 133 H 133 H 122 H Respiratory Rate 19 15 17 Blood Pressure 112/84 Pulse Oximetry 05/28/25 01:46 05/28/25 01:47 05/28/25 02:00 Temperature Pulse Rate 131 H 132 H 134 H Respiratory Rate 21 H 26 H 24 H Blood Pressure 116/94 H Pulse Oximetry 05/28/25 02:01 05/28/25 02:02 05/28/25 02:16 Temperature 97.8 F Pulse Rate 127 H 131 H 125 H Respiratory Rate 30 H 13 14 Blood Pressure 112/85 111/75 Pulse Oximetry 95 05/28/25 02:35 Temperature 97.7 F Pulse Rate 118 H Respiratory Rate 18 Blood Pressure 119/75 Pulse Oximetry 96 Exam Narrative: General: Chronically ill-appearing elderly male in the semi-Ng position no acute distress. Weight: 74.2 kg. BMI: 24.5. HEENT: PERRL, EOMI. Sclera anicteric. Oral mucosa moist. Neck: Supple. No JVD. No stridor. Respiratory: Respirations are nonlabored he speaking in full sentences. Lung sounds are a bit coarse with scattered rhonchi that improve with cough. Cardiovascular: Irregularly irregular rate and rhythm. Gastrointestinal: Abdomen is soft, nontender, and nondistended with positive bowel sounds. Skin: Warm and dry. No rash or lesions on limited exam. Extremities: No cyanosis or clubbing. Trace tello ankle edema bilaterally. Neurological: Alert. Cranial nerves grossly intact. No gross focal deficits to casual conversation. Psychiatric: Pleasant and cooperative with appropriate mood and affect. H&P: Results Labs Labs: Short CBC 05/27/25 05/28/25 Range/Units 20:22 03:20 WBC 18.0 H 18.6 H (4.5-10.0) K/mm3 Hgb 14.8 14.3 (14.0-18.0) g/dL Hct 45.0 42.4 (42.0-52.0) % Plt Count 175 156 (150-375) k/mm3 BMP 05/27/25 20:22 Sodium 134 L Potassium 4.9 Chloride 101 Carbon Dioxide 22 BUN 44 H D Creatinine 1.85 H Glucose 123 H Calcium 9.0 Cardiac Enzymes 05/27/25 05/27/25 05/28/25 Range/Units 20:22 23:40 03:20 Troponin I 5.340 H* 5.660 H* 5.500 H* (0.000-0.034) ng/mL Liver Function 05/27/25 Range/Units 20:22 Total Bilirubin 1.6 H (0.2-1.3) mg/dL AST 73 H (17-59) U/L ALT 53 H (6-50) U/L Alkaline Phosphatase 67 (38-126) U/L Albumin 3.6 (3.5-5.1) g/dL Urine 05/27/25 Range/Units 19:39 Urine Color Dark yellow (Yellow) Urine Appearance Cloudy H (Clear) Urine pH 5.0 (5.0-9.0) Ur Specific [place] 1.021 (1.001-1.035) Urine Protein 1+ H (Negative) mg/dL Urine Glucose (UA) Negative (Negative) mg/dL Imaging Chest X-Ray 05/27/25 22:43 IMPRESSION: Trace bilateral pleural effusions with adjacent compressive atelectasis. Chest/Abdomen/Pelvis CTA 05/27/25 22:44 IMPRESSION: No pulmonary embolus. No aortic dissection. Small bilateral pleural effusions with adjacent compressive atelectasis. Gallbladder distention with mural thickening and trace surrounding inflammatory change, which may be related to vascular congestion and fluid overload rather than inflammatory gallbladder disease, for which clinical (and serologic) correlation is needed. Assessment and Plan Assessment and plan (1) Non-ST elevation myocardial infarction (NSTEMI): Code(s): I21.4 - Non-ST elevation (NSTEMI) myocardial infarction Status: Acute (2) Atrial fibrillation with rapid ventricular response: Code(s): I48.91 - Unspecified atrial fibrillation Status: Acute (3) Acute kidney injury: Code(s): N17.9 - Acute kidney failure, unspecified Status: Acute (4) Elevated liver enzymes: Code(s): R74.8 - Abnormal levels of other serum enzymes Status: Acute (5) Heart failure with preserved ejection fraction: Code(s): I50.30 - Unspecified diastolic (congestive) heart failure Status: Acute Plan The patient presented to the emergency department with several complaints with a difficult to elicit history however it does sound that he has been more short of breath recently from baseline as detailed in HPI. Labs, imaging, EKG, and all reports were personally reviewed. On initial workup he was found to have a markedly elevated proBNP of greater than 30,000 (compared to 4230 earlier this month), small bilateral pleural effusions, increased creatinine from baseline, mild elevated LFTs, and a troponin as high as 5.660 with concerns for ischemic T-wave changes on the EKG (present with a heart rate in the 50s as well as in rapid atrial fibrillation). He continues to maintain that he has no chest pain whatsoever however he has been started on a heparin drip and he will be NPO for possible cardiac catheterization later today. Limited echocardiogram has been ordered as he had 1 done earlier this month. Heart rate was in the 50s on arrival but he has intermittently gone into rapid atrial fibrillation, likely due in some part to not taking his medications as prescribed. He has an acute kidney injury with a creatinine of 1.85, up from 1.24 on day of discharge earlier this month. P.r.n. bladder scan to rule out urinary retention given reports of slow stream. Resume tamsulosin and continue to monitor closely. AST, ALT, and total bilirubin are a bit elevated however his abdominal exam is completely benign. May be related to his hepatitis-C or increase in volume status albeit not severe on examination. Another dose of furosemide has been ordered for later this morning. Continue to monitor volume status, renal function, and electrolytes. Cardiology has been consulted. His home medications will be reviewed and resumed as appropriate. Findings and treatment plan were discussed with the patient. Questions were solicited and answered to satisfaction. The patient's medical management will be taken over by the hospitalist team in a.m. Quality VTE Prophylaxis VTE prophylaxis: pharmacologic ordered (currently on a heparin drip) The patient has been admitted under observation status. Hospitalist [facility] Advance Care Plan I have confirmed that the patient's Advanced Care Plan is present, code status is documented, or surrogate decision maker is listed in patient medical record.: Yes Medication Reconciliation I have utilized all available resources to obtain, update and review the patients current medications (includes all prescriptions, OTC, herbals, cannabis, and nutritional supplements).: Yes
--- NOTE | 2025-05-28 05:57 | PC.NURSE ---
Spoke with daughter Maura - updated on condition.
--- NOTE | 2025-05-28 06:00 | ECG_ITS ---
Test Date: 2025-05-28 00:47:14 Measurements Intervals [place] Rate: 128 P: 0 ID: 0 QRS: 69 QRSD: 81 T: 230 QT: 317 QTc: 463 Interpretive Statements ATRIAL FIBRILLATION WITH RAPID VENTRICULAR RESPONSE WITH ABERRANT CONDUCTION OR VENTRICULAR PREMATURE COMPLEXES CANNOT R/O SEPTAL INFARCT, AGE INDETERMINATE ST-T WAVE ABNORMALITY IN INF/LAT LEADS- CONSIDER ISCHEMIA BASELINE ARTIFACT- I, II, III, AVR, AVL, AVF, V1-V4 ABNORMAL ECG Compared to ECG 05/27/2025 21:24:47 HEART HAS INCREASED Electronically Signed On 05-28-2025 06:08:13 CDT by Ezequiel Hutchinson D.O.
[2025-05-28 06:36] LABS: INR 1.5; Prothrombin Time 18.0 Seconds (11.1-14.7)
[2025-05-28 06:38] LABS: Partial Thromboplastin Time 58.2 Seconds (22.3-36.8)
[2025-05-28 06:40] LABS: Alanine Aminotransferase 52 U/L (6-50); Albumin Level 3.4 g/dL (3.5-5.1); Alkaline Phosphatase 69 U/L (38-126); Anion Gap 13 mmol/L (4-12); Aspartate Amino Transferase 72 U/L (17-59); Bilirubin,Total 1.6 mg/dL (0.2-1.3); Blood Urea Nitrogen 46 mg/dL (9-20); Calcium 8.6 mg/dL (8.4-10.2); Carbon Dioxide 17 mmol/L (22-30); Chloride 103 mmol/L (98-107); Estimated CRCL calculation 33 ml/min; Estimated Glomerular Filt Rate 41; Glucose 123 mg/dL (65-110); Potassium 4.7 mmol/L (3.4-5.0); Sodium 133 mmol/L (137-145); Total Protein 6.7 g/dL (6.3-8.2)
[2025-05-28] MEDS: UMECLIDINIUM BROMIDE 62.5 MCG ELLIPTA 1 PUFF INHALATION (08:17)
--- NOTE | 2025-05-28 08:30 | P.CONCA_ITS ---
Assessment and Plan Assessment and plan (1) Atrial fibrillation with rapid ventricular response: Code(s): I48.91 - Unspecified atrial fibrillation Status: Acute Assessment and Plan: Rapid. [id number] 4. Was on Eliquis in hospital but he did not continue it upon discharge recently. On Diltiazem, Metoprolol, and Digoxin. Diltiazem was restarted as he was not taking it at home when it ran out a few days ago. Monitor HR. (2) Elevated troponin: Code(s): R79.89 - Other specified abnormal findings of blood chemistry Status: Acute Assessment and Plan: Moderately elevated 5.6 and trending down. Possible ACS or due to CHF and rapid HR with worsening kidney function and/or early onset pneumonia with high WBC and RML atelectasis. On heparin drip. Check limited echo. If no WMA, then would stop heparin drip. No LHC especially today given worsening kidney function. (3) Heart failure with preserved ejection fraction: Code(s): I50.30 - Unspecified diastolic (congestive) heart failure Status: Acute Assessment and Plan: May need Lasix prn. (4) Essential (primary) hypertension: Code(s): I10 - Essential (primary) hypertension Status: Acute Assessment and Plan: Stable. History of Present Illness History of Present Illness Consult date/time: 05/28/25 08:30 Reason For Visit: many complaints Narrative: 79 yr old man who is my regular cardiology patient and a patient of Dr. Downing present to ER with sob. He has a history of atrial fibrillation, dyslipidemia, hypertension, COPD, JOYCE (intolerant of CPAP, Sees PCP), former smoking. States that in last couple of days he had more sob. He had cough with sputum production and some chills but no fever. He was found to have high WBC, rapid HR in atrial fib and elevated troponin and volume overloaded. He is limited at walking 1 block due to TURNER. Denies chest pain, orthopnea, PND, edema, dizziness, palpitations. Review of Systems 2 Review of Systems: All systems reviewed & are unremarkable except as noted in HPI and below Constitutional: Constitutional: Reports as per HPI, Reports chills, Reports fatigue and Denies fever(s) Cardiovascular: Cardiovascular: Reports as per HPI, Denies chest pain and Denies irregular heart rhythm Respiratory: Respiratory: Reports as per HPI, Reports cough, Reports dyspnea and Reports dyspnea on exertion Gastrointestinal: Gastrointestinal: Reports as per HPI and Denies abdominal pain Genitourinary: Genitourinary: Reports as per HPI and Denies dysuria Musculoskeletal: Musculoskeletal: Reports as per HPI Neurologic: Reports as per HPI, Denies dizziness and Denies syncope [facility] Past Medical History Medical History (Updated 05/28/25 @ 08:33 by Ezequiel Hutchinson DO) Heart failure with preserved ejection fraction Chronic obstructive pulmonary disease Prediabetes Atrial fibrillation Lung nodules Umbilical hernia Brain aneurysm Enlarged prostate with lower urinary tract symptoms (LUTS) Essential (primary) hypertension Obstructive sleep apnea (adult) (pediatric) Other psoriatic arthropathy Polyosteoarthritis, unspecified Psoriasis vulgaris Vitamin D deficiency Surgical History Surgical History (Updated 05/28/25 @ 06:24 by Sherin Barraza PA-C) History of arthroscopic knee surgery S/P coil embolization of cerebral aneurysm per CT 05/27/25 interpretation Family History Family History Father Diabetes mellitus Family history of diabetes mellitus in first degree relative, Onset Age: 62 Patient's father is Mother Family history of heart disease in male family member before age 55, Onset Age: 81 Family history of cardiovascular disease Patient's mother is Sibling History of open heart surgery Social History Social History (Updated 05/28/25 @ 06:25 by Sherin Barraza PA-C) Social History: Surrogate medical decision maker: Maura Castillo, daughter. Code status: Full code. Smoking packs per day: 2 Smoking cigarettes per day: 40.0 Years smoked: 40 Smoking pack-years: 80.00 Smoking status: Former smoker Tobacco type: cigarettes, cigars and e-cigarettes/vaping Second hand tobacco smoke exposure: Yes Smoking end date: 12/02/16 Alcohol intake: current Drinks per week: 1 Substance use: current Substance use type: marijuana Other substance usage details: COUPLE TIMES A WEEK Do You Feel Safe in your Home?: Yes Lack of Transportation: YES Lack of Food: Never True Current Housing: I Have Housing Concerned About Future Housing: No Difficulty Paying Gas/Electric Bills: No Difficulty Paying for Meds: No Currently Unemployed: No Education: Grade School Difficulty w/ Childcare or Family Care: No Living arrangements: with family Spiritual care concerns: No Meds Home Medications and Allergies Home Medications ?Medication ?Instructions ?Recorded ?Confirmed ?Type adalimumab 40 mg/0.8 mL See Rx Instructions subcut .COMPLEX 01/13/20 05/28/25 History subcutaneous syringe kit (Humira) multivitamin 1 tablet PO DAILY 01/09/23 05/28/25 History apixaban 2.5 mg tablet (Eliquis) See Rx Instructions .Route 09/30/24 05/28/25 Rx .COMPLEX #60 tabs L.acid,par,plant,rham-B.anim,bif,brev,inf,long 1 cap PO DAILY 05/02/25 05/28/25 History 30 billion cell capsule (Probiotic Digestive Health) aspirin 81 mg capsule 81 mg PO DAILY 05/02/25 05/28/25 History cyanocobalamin (vitamin B-12) 500 500 mcg PO DAILY 05/02/25 05/28/25 History mcg tablet (B-12 DOTS) omega 9-far-hoi-fish oil 1,200 mg 1 cap PO DAILY 05/02/25 05/28/25 History (144 mg-216 mg) capsule (Fish Oil) tamsulosin 0.4 mg capsule 0.4 mg PO QHS 05/06/25 05/28/25 History calcium carbonate 400 mg (0.8 x 500 mg calcium 05/08/25 05/28/25 Rx (1,250 mg)) PO Q6H PRN Indigestion #30 tabs digoxin 125 mcg (0.125 mg) tablet 125 mcg PO QAM #30 tabs 05/08/25 05/28/25 Rx diltiazem HCl 180 mg 360 mg (2 x 180 mg) BYMOUTH DAILY 05/08/25 05/28/25 Rx capsule,extended release 24 hr, #30 caps controlled metoprolol succinate 100 mg 100 mg PO QHS #30 tabs 05/08/25 05/28/25 Rx tablet,extended release 24 hr (Toprol XL) umeclidinium 62.5 mcg/actuation 62.5 mcg inhalation DAILYRT #30 ea 05/08/25 05/28/25 Rx blister powder for inhalation (Incruse Ellipta) hydrocodone 7.5 mg-acetaminophen 1 tablet PO Q6H PRN pain #110 tabs 05/10/25 05/28/25 Rx 325 mg tablet Allergies Allergy/AdvReac Type Severity Reaction Status Date / Time No Known Allergies Allergy Unknown Verified 07/01/24 10:25 Vital Signs Vital Signs - 24 hr 05/27/25 16:58 05/27/25 19:41 05/27/25 20:22 Temperature 97.6 F Pulse Rate 53 L 56 L 142 H Respiratory Rate 16 18 22 H Blood Pressure 113/67 104/82 108/79 Pulse Oximetry 96 97 96 05/27/25 20:23 05/27/25 20:57 05/27/25 21:00 Temperature Pulse Rate 145 H 134 H 107 H Respiratory Rate Blood Pressure 108/88 Pulse Oximetry 98 05/27/25 21:19 05/27/25 21:32 05/27/25 22:20 Temperature Pulse Rate 95 93 100 Respiratory Rate 18 18 18 Blood Pressure 92/73 L 125/71 102/67 Pulse Oximetry 97 97 05/27/25 23:55 05/28/25 00:25 05/28/25 01:29 Temperature 97.9 F Pulse Rate 113 H 133 H 145 H Respiratory Rate 14 26 H 23 H Blood Pressure 116/80 Pulse Oximetry 95 96 05/28/25 01:30 05/28/25 01:31 05/28/25 01:45 Temperature Pulse Rate 133 H 133 H 122 H Respiratory Rate 19 15 17 Blood Pressure 112/84 Pulse Oximetry 05/28/25 01:46 05/28/25 01:47 05/28/25 02:00 Temperature Pulse Rate 131 H 132 H 134 H Respiratory Rate 21 H 26 H 24 H Blood Pressure 116/94 H Pulse Oximetry 05/28/25 02:01 05/28/25 02:02 05/28/25 02:16 Temperature 97.8 F Pulse Rate 127 H 131 H 125 H Respiratory Rate 30 H 13 14 Blood Pressure 112/85 111/75 Pulse Oximetry 95 05/28/25 02:35 05/28/25 04:00 Temperature 97.7 F 97.7 F Pulse Rate 118 H 126 H Respiratory Rate 18 16 Blood Pressure 119/75 118/72 Pulse Oximetry 96 94 Exam 2 Const: General: cooperative, healthy appearing and comfortable Resp: Auscultation: crackles, no rales, no rhonchi and no wheezes Cardio: Rate: tachycardic Rhythm: abnormal rhythm Heart sounds: no murmurs Peripheral pulses: dorsalis pedis present GI: GI Palp: No abdominal tenderness and Yes Soft to palpation Neuro: General: oriented to person, oriented to place and oriented to time Extrem: Right lower extremity: no edema Left lower extremity: no edema Results Labs and Meds 05/28/25 03:20 05/28/25 06:17 Lab results: Cardiac Enzymes 05/27/25 05/27/25 05/28/25 Range/Units 20:22 23:40 03:20 AST 73 H (17-59) U/L Troponin I 5.340 H* 5.660 H* 5.500 H* (0.000-0.034) ng/mL 05/28/25 Range/Units 06:17 AST 72 H (17-59) U/L Troponin I (0.000-0.034) ng/mL Coagulation 05/27/25 05/28/25 Range/Units 20:22 06:17 PT 17.2 H 18.0 H (11.1-14.7) Seconds APTT 33.5 58.2 H (22.3-36.8) Seconds CBC 05/27/25 05/28/25 Range/Units 20:22 03:20 WBC 18.0 H 18.6 H (4.5-10.0) K/mm3 RBC 4.77 4.59 L (4.6-6.20) M/mm3 Hgb 14.8 14.3 (14.0-18.0) g/dL Hct 45.0 42.4 (42.0-52.0) % Plt Count 175 156 (150-375) k/mm3 Lymph # (Auto) 4.61 H 4.30 H (0.9-3.2) K/mm3 [place]ton # (Auto) 2.2 H 1.9 H (0.1-0.6) K/mm3 Eos # (Auto) 0.0 0.0 (0-0.3) K/mm3 Baso # (Auto) 0.0 0.0 (0.0-0.1) K/mm3 Comprehensive Metabolic Panel 05/27/25 05/28/25 Range/Units 20:22 06:17 Sodium 134 L 133 L (137-145) mmol/L Potassium 4.9 4.7 (3.4-5.0) mmol/L Chloride 101 103 (98-107) mmol/L Carbon Dioxide 22 17 L (22-30) mmol/L BUN 44 H D 46 H (9-20) mg/dL Creatinine 1.85 H 1.64 H (0.7-1.3) mg/dL Glucose 123 H 123 H (65-110) mg/dL Calcium 9.0 8.6 (8.4-10.2) mg/dL AST 73 H 72 H (17-59) U/L ALT 53 H 52 H (6-50) U/L Alkaline Phosphatase 67 69 (38-126) U/L Total Protein 7.1 6.7 (6.3-8.2) g/dL Albumin 3.6 3.4 L (3.5-5.1) g/dL Intake and Output 05/27/25 05/28/25 05/28/25 23:59 07:59 15:59 Intake Total 1000 273.5 Output Total 20 375 Balance 980 -101.5 Intake: IV 1000 73.5 Heparin Sod/D5w 100 Units/ml 25 73.5 ,000 units In 250 ml @ 900 UNITS/HR 9 mls/hr IV CONT .Q24H BERNARDA Rx#:[id number] Sodium Chloride 0.9% IV 1,000 1000 ml @ 999 mls/hr IV CONT .Q1H1M STA Rx#:[id number] Oral 200 Output: Urine 20 375 Patient Weight 05/28/25 23:59 Weight 74.2 kg
[2025-05-28] MEDS: MULTIVITAMINS THERAPEUTIC TAB (*BKC) 1 TABLET PO (09:56)
[2025-05-28] MEDS: ACIDOPHILUS/BULGARICUS CHEWABLE TABLET 1 TABLET BY MOUTH (09:56)
[2025-05-28] MEDS: CYANOCOBALAMIN 500 MCG TABLET PO (09:56)
[2025-05-28] MEDS: DIGOXIN TAB 125 MCG TABLET PO (09:56)
[2025-05-28] MEDS: OMEGA 3 POLYUNSAT FATTY ACIDS 1 GM CAP PO (09:57)
[2025-05-28] MEDS: ASPIRIN 81 MG ENTERIC TABLET PO (09:57)
[2025-05-28] MEDS: FUROSEMIDE INJ 40 MG/4 ML VIAL IV PUSH (10:06)
--- NOTE | 2025-05-28 13:47 | PM.IMPN ---
Progress Note: A&P Assessment and Plan (1) Non-ST elevation myocardial infarction (NSTEMI): Code(s): I21.4 - Non-ST elevation (NSTEMI) myocardial infarction Status: Acute (2) Atrial fibrillation with rapid ventricular response: Code(s): I48.91 - Unspecified atrial fibrillation Status: Acute (3) Acute kidney injury: Code(s): N17.9 - Acute kidney failure, unspecified Status: Acute (4) Elevated liver enzymes: Code(s): R74.8 - Abnormal levels of other serum enzymes Status: Acute (5) Heart failure with preserved ejection fraction: Code(s): I50.30 - Unspecified diastolic (congestive) heart failure Status: Acute Plan This is a 79-year-old male with history of atrial fibrillation, hypertension, hepatitis-C, chronic kidney disease stage 3, chronic obstructive pulmonary disease, prediabetes, obstructive sleep apnea, benign prostatic hyperplasia, and cerebral aneurysm status post coil who presented to the emergency department via private vehicle from home with several complaints. He was admitted to the hospital earlier this month with pneumonia and ?I think its back again? although he has difficulties elaborating. He says that he is short of breath but has been so for a year or more. He has an occasional cough which is occasionally productive although he cannot describe his sputum quality or quantity. He does report that his appetite has not been great since his hospitalization. He is having difficulties starting his urine stream and he also mentions that he has been out of his tamsulosin for a bit. Additionally he complains of fullness in his ears, on losses though he is underwater, which has been occurring off and on for quite some time. After extensive questioning, it sounds as though overall he is just not feeling well with generalized malaise and weakness. He cannot really pinpoint any one specific symptom. He denies fever, chills, sweats, sinus congestion, sore throat, dysphagia, concerns for aspiration, chest pain, pleuritic pain, palpitations, abdominal pain, nausea, vomiting, diarrhea, dysuria, lower extremity edema, and calf pain. In the ED: Vital signs on arrival include a temperature of 97.6?, blood pressure 113/67, pulse 53, respiratory rate 16, SpO2 96% on room air. Labs were significant for a WBC count of 18.0, D-dimer 0.99, sodium 134, BUN 44, creatinine 1.85, glucose 123, total bilirubin 1.6, AST 73, ALT 53, alkaline phosphatase 67, troponin 5.340, proBNP greater than 30,000. EKG showed T-wave inversions concerning for ischemia in the inferior lateral leads. CTA of the chest, abdomen, and pelvis was negative for pulmonary embolism and aortic dissection. Small bilateral pleural effusions with adjacent compressive atelectasis was noted as well as gallbladder distension with mural thickening and trace surrounding inflammatory change which may be related to vascular congestion and fluid overload. A few hours after presentation, he went into rapid atrial fibrillation with rates into the 120s to 140s. He has been rate controlled since receiving an IV diltiazem bolus. During his most recent hospitalization, there were difficulties controlling his rate and diltiazem was increased to 360 mg daily. He has been out of this medication for several days however. Additionally, he seems to be confused about whether not he is supposed to be taking apixaban and he states that he has not been taking it for unclear reasons. He was started on a heparin drip for non STEMI and is being admitted to the IMU in this setting for close monitoring and Cardiology consultation. Atrial fibrillation with rapid ventricular rate out of diltiazem at home. This has been restarted. Will resume 360 mg of diltiazem Non-STEMI with elevated troponin and EKG changes. Serial troponin 5.34-5.6 6-5.5. Possible acute coronary syndrome or due to CHF or AFib with RVR.. CTA with no PE no aortic dissection. Small bilateral pleural effusion with adjacent compressive atelectasis. Gallbladder distention mural thickening and trace surrounding inflammatory change which may be related to vascular congestion and fluid overload rather than inflammatory gallbladder disease. Chest x-ray with trace bilateral pleural effusion with adjacent compressive atelectasis. Pneumonia elevated leukocytosis chest x-ray with small bilateral pleural effusion with adjacent compressive atelectasis. Will add Zosyn. Will do respiratory pathogen panel. Check procalcitonin. No obvious pneumonia on CTA. He did receive a dose of Lasix. WILLIAM and CKD stage 3 baseline creatinine 1.2 admission creatinine 1.8. Creatinine improving no catheterization due to WILLIAM noted. BPH on Flomax Elevated liver enzymes right upper quadrant ultrasound ordered. CT evidence of gallbladder distention with mural thickening and trace surrounding inflammatory change which may be related to vascular congestion and fluid overload received a dose of Lasix History of hepatitis-C COPD not in exacerbation Prediabetes Obstructive sleep apnea Cerebral aneurysm status post coiling. DVT prophylaxis on heparin drip. Eliquis on hold Subjective Date/time seen: 05/28/25 13:47 Interval history: Chart reviewed. Denies any chest pain. Came in with palpitations. Cough and shortness of breath. On heparin drip. Review of Systems Review of Systems: All systems reviewed & are unremarkable except as noted in HPI and below Exam Narrative: General: Chronically ill-appearing elderly male in the semi-Ng position no acute distress. HEENT: PERRL, EOMI. Sclera anicteric. Oral mucosa moist. Neck: Supple. No JVD. No stridor. Respiratory: Respirations are nonlabored he speaking in full sentences. Lung sounds are a bit coarse with scattered rhonchi Cardiovascular: Irregularly irregular rate and rhythm. Gastrointestinal: Abdomen is soft, nontender, and nondistended with positive bowel sounds. Skin: Warm and dry. No rash or lesions on limited exam. Extremities: No cyanosis or clubbing. Trace tello ankle edema bilaterally. Neurological: Alert. Cranial nerves grossly intact. No gross focal deficits to casual conversation. Psychiatric: Pleasant and cooperative with appropriate mood and affect. Objective Data Vital Signs Vital Signs: Vital Signs - 24 hr 05/27/25 16:58 05/27/25 19:41 05/27/25 20:22 Temperature 97.6 F Pulse Rate 53 L 56 L 142 H Respiratory Rate 16 18 22 H Blood Pressure 113/67 104/82 108/79 Pulse Oximetry 96 97 96 Oxygen Delivery 05/27/25 20:23 05/27/25 20:57 05/27/25 21:00 Temperature Pulse Rate 145 H 134 H 107 H Respiratory Rate Blood Pressure 108/88 Pulse Oximetry 98 Oxygen Delivery 05/27/25 21:19 05/27/25 21:32 05/27/25 22:20 Temperature Pulse Rate 95 93 100 Respiratory Rate 18 18 18 Blood Pressure 92/73 L 125/71 102/67 Pulse Oximetry 97 97 Oxygen Delivery 05/27/25 23:55 05/28/25 00:25 05/28/25 01:29 Temperature 97.9 F Pulse Rate 113 H 133 H 145 H Respiratory Rate 14 26 H 23 H Blood Pressure 116/80 Pulse Oximetry 95 96 Oxygen Delivery 05/28/25 01:30 05/28/25 01:31 05/28/25 01:45 Temperature Pulse Rate 133 H 133 H 122 H Respiratory Rate 19 15 17 Blood Pressure 112/84 Pulse Oximetry Oxygen Delivery 05/28/25 01:46 05/28/25 01:47 05/28/25 02:00 Temperature Pulse Rate 131 H 132 H 134 H Respiratory Rate 21 H 26 H 24 H Blood Pressure 116/94 H Pulse Oximetry Oxygen Delivery 05/28/25 02:01 05/28/25 02:02 05/28/25 02:16 Temperature 97.8 F Pulse Rate 127 H 131 H 125 H Respiratory Rate 30 H 13 14 Blood Pressure 112/85 111/75 Pulse Oximetry 95 Oxygen Delivery 05/28/25 02:35 05/28/25 04:00 05/28/25 04:00 Temperature 97.7 F 97.7 F Pulse Rate 118 H 126 H 133 H Respiratory Rate 18 16 Blood Pressure 119/75 118/72 Pulse Oximetry 96 94 Oxygen Delivery 05/28/25 04:00 05/28/25 06:00 05/28/25 08:00 Temperature 97.5 F L Pulse Rate 133 H 118 H 101 H Respiratory Rate 24 H Blood Pressure 107/69 Pulse Oximetry 97 Oxygen Delivery Room Air 05/28/25 09:56 Temperature Pulse Rate 136 H Respiratory Rate Blood Pressure Pulse Oximetry Oxygen Delivery Intake/Output Intake/Output: Intake & Output 05/25/25 05/26/25 05/27/25 05/28/25 23:59 23:59 23:59 23:59 Intake Total 1000 273.5 Output Total 20 375 Balance 980 -101.5 Meds/Results Medications: Active Medications Generic Name Dose Route Start Last Admin Trade Name Freq PRN Reason Stop Dose Admin Acetaminophen 650 mg 05/27/25 23:08 Acetaminophen 325 Mg Tablet PO Q4H PRN Mild Pain (1-3) or Fever Hydrocodone Bitart/Acetaminophen 1 tab 05/28/25 03:53 Hydrocodone/Acetaminophen (*Crx) 7.5-325 Mg Tablet PO Q6H PRN pain 4-10 Aspirin 81 mg 05/28/25 09:00 05/28/25 09:57 Aspirin 81 Mg Enteric Tablet PO 81 mg QAM BERNARDA Administration Calcium Carbonate 400 mg 05/28/25 03:52 Calcium Carbonate (Tums) 500 Mg (200 Mg Elemental) PO Q6H PRN Indigestion Cyanocobalamin 500 mcg 05/28/25 09:00 05/28/25 09:56 Cyanocobalamin 500 Mcg Tablet PO 500 mcg DAILY BERNARDA Administration Digoxin 125 mcg 05/28/25 09:00 05/28/25 09:56 Digoxin Tab 125 Mcg Tablet PO 125 mcg QAM BERNARDA Administration Diltiazem HCl 30 mg 05/28/25 00:00 05/28/25 11:37 Diltiazem Hcl 30 Mg Tablet PO 30 mg Q6HR BERNARDA Administration Fish Oil 1 gm 05/28/25 09:00 05/28/25 09:57 May 3 Polyunsat Fatty Acids 1 Gm Cap PO 1 gm DAILY BERNARDA Administration Heparin Sodium (Porcine) 4,000 units 05/27/25 23:04 05/27/25 23:50 Heparin Sodium 5,000 Units/Ml Vial IV PUSH 4,000 units PRN PRN Administration aPTT less than 55 seconds Heparin Sodium (Porcine) 3,000 units 05/27/25 23:04 05/28/25 08:00 Heparin Sodium 5,000 Units/Ml Vial IV PUSH 3,000 units PRN PRN Administration aPTT 55 - 70 seconds Heparin Sodium/Dextrose 25,000 units in 250 mls @ 10 mls/hr 05/27/25 23:05 05/28/25 07:58 Heparin Sodium/D5w 100 Units/Ml IV CONT 1,000 units/hr .Q24H BERNARDA 10 mls/hr Titration Protocol 1,000 UNITS/HR Lactobacillus Acidophilus 1 tablet 05/28/25 09:00 05/28/25 09:56 Acidophilus/Bulgar[place] Chewable Tablet BY MOUTH 1 tablet DAILY BERNARDA Administration Metoprolol Succinate 100 mg 05/28/25 21:00 Metoprolol Succinate Ext Rel 100 Mg Tabcr PO QHS [facility] Multivitamins Therapeutic 1 tablet 05/28/25 09:00 05/28/25 09:56 Multivitamins Therapeutic Tab (*Bkc) PO 1 tablet DAILY BERNARDA Administration Ondansetron HCl 4 mg 05/27/25 23:08 Ondansetron Inj 4 Mg/2 Ml Vial IV PUSH Q4H PRN Nausea Perflutren Lipid Microsphere 0 ml 05/28/25 06:37 Perflutren Lipid Microspheres 1.5 Ml Vial Diluted To 10 Ml Total Volume IV PUSH 05/31/25 06:37 ONCE PRN adequate visualization Protocol Tamsulosin HCl 0.4 mg 05/28/25 21:00 Tamsulosin Hcl 0.4 Mg Capsule PO QHS [facility] Umeclidinium [place] 1 puff 05/28/25 08:00 05/28/25 08:17 Umeclidinium [place] 62.5 Mcg Ellipta INHALATION 1 puff DAILYRT [facility] Administration Radiology Results: ITS Impressions Chest X-Ray 05/27/25 22:43 IMPRESSION: Trace bilateral pleural effusions with adjacent compressive atelectasis. Chest/Abdomen/Pelvis CTA 05/27/25 22:44 IMPRESSION: No pulmonary embolus. No aortic dissection. Small bilateral pleural effusions with adjacent compressive atelectasis. Gallbladder distention with mural thickening and trace surrounding inflammatory change, which may be related to vascular congestion and fluid overload rather than inflammatory gallbladder disease, for which clinical (and serologic) correlation is needed. Internal Auditory Canal CT 05/28/25 08:21 IMPRESSION: No definite abnormality seen in both temporal bones. Labs Labs: Laboratory Results - last 24 hr 05/27/25 05/27/25 05/27/25 19:39 20:21 20:22 WBC 18.0 H RBC 4.77 Hgb 14.8 Hct 45.0 MCV 94.3 MCH 31.0 MCHC 32.9 RDW 15.1 H Plt Count 175 MPV 11.8 H Immature Gran % (Auto) 0.4 Neut % (Auto) 61.5 Lymph % (Auto) 25.6 [place] % (Auto) 12.2 H Eos % (Auto) 0.1 Baso % (Auto) 0.2 Lymph # (Auto) 4.61 H [place] # (Auto) 2.2 H Eos # (Auto) 0.0 Baso # (Auto) 0.0 Abs Immat Gran (auto) 0.07 H Absolute Neuts (auto) 11.1 H Absolute Nucleated RBC 0.000 Nucleated RBC % 0.0 PT 17.2 H INR 1.4 APTT 33.5 D-Dimer 0.99 H Sodium 134 L Potassium 4.9 Chloride 101 Carbon Dioxide 22 Anion Gap 11 BUN 44 H D Creatinine 1.85 H Estim Creat Clear Calc 29 Estimated GFR 36 L Glucose 123 H Calcium 9.0 Magnesium 1.9 Total Bilirubin 1.6 H AST 73 H ALT 53 H Alkaline Phosphatase 67 Troponin I 5.340 H* NT-Pro-B Natriuret Pep Total Protein 7.1 Albumin 3.6 Lipase 14 L Urine Color Dark yellow Urine Appearance Cloudy H Urine pH 5.0 Ur Specific [place] 1.021 Urine Protein 1+ H Urine Glucose (UA) Negative Urine Ketones Trace H Ur Blood (Man) Negative Urine Nitrate Negative Urine Bilirubin 1+ H Urine Urobilinogen 1.0 Leukocyte Esterase Rfl Trace H Urine RBC 3-5 H Urine WBC 0-5 Ur Squamous Epith Cells None seen Urine Bacteria None seen Urine Casts >20 Hyaline Casts 20-29 H 05/27/25 05/27/25 05/28/25 21:26 23:40 03:20 WBC 18.6 H RBC 4.59 L Hgb 14.3 Hct 42.4 MCV 92.4 MCH 31.2 MCHC 33.7 RDW 15.3 H Plt Count 156 MPV 11.5 H Immature Gran % (Auto) 0.6 H Neut % (Auto) 65.7 Lymph % (Auto) 23.1 [place] % (Auto) 10.3 H Eos % (Auto) 0.1 Baso % (Auto) 0.2 Lymph # (Auto) 4.30 H [place] # (Auto) 1.9 H Eos # (Auto) 0.0 Baso # (Auto) 0.0 Abs Immat Gran (auto) 0.11 H Absolute Neuts (auto) 12.2 H Absolute Nucleated RBC 0.000 Nucleated RBC % 0.0 PT INR APTT D-Dimer Sodium Potassium Chloride Carbon Dioxide Anion Gap BUN Creatinine Estim Creat Clear Calc Estimated GFR Glucose Calcium Magnesium Total Bilirubin AST ALT Alkaline Phosphatase Troponin I 5.660 H* 5.500 H* NT-Pro-B Natriuret Pep > 55374 H Total Protein Albumin Lipase Urine Color Urine Appearance Urine pH Ur Specific [place] Urine Protein Urine Glucose (UA) Urine Ketones Ur Blood (Man) Urine Nitrate Urine Bilirubin Urine Urobilinogen Leukocyte Esterase Rfl Urine RBC Urine WBC Ur Squamous Epith Cells Urine Bacteria Urine Casts Hyaline Casts 05/28/25 06:17 WBC RBC Hgb Hct MCV MCH MCHC RDW Plt Count MPV Immature Gran % (Auto) Neut % (Auto) Lymph % (Auto) [place] % (Auto) Eos % (Auto) Baso % (Auto) Lymph # (Auto) [place] # (Auto) Eos # (Auto) Baso # (Auto) Abs Immat Gran (auto) Absolute Neuts (auto) Absolute Nucleated RBC Nucleated RBC % PT 18.0 H INR 1.5 APTT 58.2 H D-Dimer Sodium 133 L Potassium 4.7 Chloride 103 Carbon Dioxide 17 L Anion Gap 13 H BUN 46 H Creatinine 1.64 H Estim Creat Clear Calc 33 Estimated GFR 41 L Glucose 123 H Calcium 8.6 Magnesium Total Bilirubin 1.6 H AST 72 H ALT 52 H Alkaline Phosphatase 69 Troponin I NT-Pro-B Natriuret Pep Total Protein 6.7 Albumin 3.4 L Lipase Urine Color Urine Appearance Urine pH Ur Specific [place] Urine Protein Urine Glucose (UA) Urine Ketones Ur Blood (Man) Urine Nitrate Urine Bilirubin Urine Urobilinogen Leukocyte Esterase Rfl Urine RBC Urine WBC Ur Squamous Epith Cells Urine Bacteria Urine Casts Hyaline Casts
[2025-05-28] MEDS: PERFLUTREN LIPID MICROSPHERES 1.5 ML VIAL DILUTED TO 10 ML TOTAL VOLUME IV PUSH (14:10)
--- NOTE | 2025-05-28 14:24 | IVDEFINITY ---
Prior to administration of IV Definity the patient was educated on the risks and benefits of the imaging enhancing agent including potential adverse side effects. The patient verbalized understanding. Allergies were verified. No exclusion criteria were identified and at least one of the following inclusion criteria were met: 1) physician request, 2) patient technically difficult to image (per the [place] [employer] guidelines of two or more segments not discernable within the apical view), or 3) questionable left ventricular function. ?
[2025-05-28 14:56] LABS: Procalcitonin 0.6 ng/mL
[2025-05-28] MEDS: dilTIAZem HCL CD 180 MG CAP.24HR 360 MG BY MOUTH (16:27)
[2025-05-28] MEDS: PIPERACILLN/TAZ 3.375GM/NS50ML 3.375 GM/50 ML BAG IVPB ×2 (16:27→20:07)
[2025-05-28 17:52] LABS: Partial Thromboplastin Time 36.1 Seconds (22.3-36.8)
[2025-05-28] MEDS: AMIODARONE HCL 200 MG TABLET PO (20:06)
[2025-05-28] MEDS: METOPROLOL SUCCINATE EXT REL 100 MG TABCR PO (20:06)
[2025-05-28] MEDS: TAMSULOSIN HCL 0.4 MG CAPSULE PO (20:06)
[2025-05-29] VITALS (18 sets, daily range): BP systolic 91–109; BP diastolic 57–68; PULSE 63–115; RESP 20–22; TEMP 36.3–36.6; O2SAT 92–97
[2025-05-29] MEDS: HEPARIN SOD/D5W 100 UNITS/ML 25,000 UNITS/250 ML BAG 13 UNITS IV CONT ×2 (00:35→21:08)
[2025-05-29 01:13] LABS: Partial Thromboplastin Time 107.0 Seconds (22.3-36.8)
[2025-05-29] MEDS: PIPERACILLN/TAZ 3.375GM/NS50ML 3.375 GM/50 ML BAG IVPB ×4 (03:39→20:40)
--- NOTE | 2025-05-29 07:32 | ECG_ITS ---
Test Date: 2025-05-29 08:02:23 Measurements Intervals [place] Rate: 78 P: 0 NV: 0 QRS: 43 QRSD: 94 T: 215 QT: 414 QTc: 472 Interpretive Statements ATRIAL FIBRILLATION WITH ABERRANT CONDUCTION OR VENTRICULAR PREMATURE COMPLEXES LOW QRS VOLTAGE IN LIMB LEADS CANNOT R/O SEPTAL INFARCT, AGE INDETERMINATE ST-T WAVE ABNORMALITY IN DIFFUSE LEADS- CONSIDER ISCHEMIA ABNORMAL ECG Compared to ECG 05/28/2025 00:47:14 HEART RATE HAS DECREASED Electronically Signed On 05-29-2025 08:25:19 CDT by Ezequiel Hutchinson D.O.
[2025-05-29 07:48] LABS: Hematocrit 39.7 % (42.0-52.0); Hemoglobin 13.3 g/dL (14.0-18.0); Immature Granulocyte Percent A 0.4 % (0-0.5); Lymphocytes Absolute Auto 3.42 K/mm3 (0.9-3.2); Mean Corpuscular HGB Conc 33.5 g/dl (32-36); Mean Corpuscular Hemoglobin 31.4 pg (26-34); Mean Corpuscular Volume 93.9 fl (80-100); Nucleated Red Blood Cells Absolute Auto 0.000 K/mm3 (0.0-0.012); Nucleated Red Blood Cells Perc 0.0 % (0.0-0.2); Platelet Count Result 136 k/mm3 (150-375); Red Blood Count 4.23 M/mm3 (4.6-6.20); White Blood Count 14.1 K/mm3 (4.5-10.0)
[2025-05-29 08:01] LABS: Alanine Aminotransferase 40 U/L (6-50); Albumin Level 3.1 g/dL (3.5-5.1); Alkaline Phosphatase 60 U/L (38-126); Anion Gap 9 mmol/L (4-12); Aspartate Amino Transferase 58 U/L (17-59); Bilirubin,Total 1.3 mg/dL (0.2-1.3); Blood Urea Nitrogen 50 mg/dL (9-20); Calcium 8.4 mg/dL (8.4-10.2); Carbon Dioxide 24 mmol/L (22-30); Chloride 100 mmol/L (98-107); Estimated CRCL calculation 35 ml/min; Estimated Glomerular Filt Rate 44; Glucose 114 mg/dL (65-110); Magnesium 1.9 mg/dL (1.6-2.3); Potassium 4.4 mmol/L (3.4-5.0); Sodium 133 mmol/L (137-145); Total Protein 6.3 g/dL (6.3-8.2)
--- NOTE | 2025-05-29 08:09 | P.PNCA_ITS ---
Progress Note: A&P Assessment and Plan (1) Atrial fibrillation with rapid ventricular response: Code(s): I48.91 - Unspecified atrial fibrillation Status: Acute Assessment and Plan: In atrial fibrillation with HR controlled today. [id number] 4. Was on Eliquis in hospital but he did not continue it upon discharge recently. On Diltiazem, Metoprolol, and Digoxin. Diltiazem was restarted as he was not taking it at home when it ran out a few days ago. Monitor HR. Started Amiodarone on 05/28/25 to improve HR or cardiovert. Check EKG. Stop Cardizem since HR is controlled today and to avoid negative inotropic m edication without HF benefit. (2) Elevated troponin: Code(s): R79.89 - Other specified abnormal findings of blood chemistry Status: Acute Assessment and Plan: Moderately elevated 5.6 and trending down. Possible due to tachycardia mediated cardiomyopathy, Takotsubo cardiomyopathy or ACS in that order, or from Noncardiac such as pneumonia. On heparin drip. Check troponin. (3) Essential (primary) hypertension: Code(s): I10 - Essential (primary) hypertension Status: Acute Assessment and Plan: Stable. (4) Systolic heart failure: Code(s): I50.20 - Unspecified systolic (congestive) heart failure Status: Acute Assessment and Plan: Acute. Possible due to tachycardia mediated cardiomyopathy, Takotsubo cardiomyopathy or ACS in that order. 05/28/25 Limited echo: EF 15-20%, severe LVE, only small basal segments have normal contractility s/o Takotsubo cardiomyopathy, diastolic function not assessed. Rate is controlled today. Start Jardiance 10 mg daily. Hold off on Entresto due to low normal BP and kidney impairment. Plan for [facility] on Saturday to r/o ACS. Continue aspirin. Continue heparin drip for possible ACS and for atrial fib anticoagulation. Subjective Date/time seen: 05/29/25 08:09 Interval history: Denies chest pain. States breathing is improving. Exam Const: General: cooperative, healthy appearing and comfortable Orientation/consciousness: oriented to person, oriented to place and oriented to time Resp: Auscultation: clear to auscultation bilaterally, no crackles, no rales, no rhonchi and no wheezes Cardio: Rate: regular rate Rhythm: abnormal rhythm Heart sounds: no murmurs Peripheral pulses: dorsalis pedis present Neuro: General: oriented to person, oriented to place and oriented to time Extrem: Right lower extremity: no edema Left lower extremity: no edema Objective Data Vital Signs Vital Signs: Vital Signs - 24 hr 05/28/25 09:56 05/28/25 10:00 05/28/25 12:00 Temperature 97.6 F Pulse Rate 136 H 125 H 119 H Respiratory Rate 24 H Blood Pressure 116/79 Pulse Oximetry 95 Oxygen Delivery Oxygen Flow Rate 05/28/25 12:00 05/28/25 12:00 05/28/25 14:00 Temperature Pulse Rate 127 H 114 H Respiratory Rate Blood Pressure Pulse Oximetry 95 Oxygen Delivery Nasal Cannula Oxygen Flow Rate 2 05/28/25 16:00 05/28/25 16:00 05/28/25 16:00 Temperature 97.9 F Pulse Rate 135 H 97 Respiratory Rate 20 Blood Pressure 109/79 Pulse Oximetry 96 97 Oxygen Delivery Nasal Cannula Oxygen Flow Rate 2 05/28/25 18:00 05/28/25 20:00 05/28/25 20:00 Temperature Pulse Rate 110 H 115 H Respiratory Rate Blood Pressure Pulse Oximetry 96 Oxygen Delivery Nasal Cannula Oxygen Flow Rate 2 05/28/25 20:00 05/28/25 20:06 05/28/25 22:00 Temperature 97.5 F L Pulse Rate 128 H 109 H 89 Respiratory Rate 20 Blood Pressure 114/82 Pulse Oximetry 97 Oxygen Delivery Oxygen Flow Rate 05/28/25 23:58 05/29/25 00:00 05/29/25 00:00 Temperature 97.7 F Pulse Rate 85 115 H Respiratory Rate 20 Blood Pressure 100/75 Pulse Oximetry 96 96 Oxygen Delivery Nasal Cannula Oxygen Flow Rate 2 05/29/25 02:00 05/29/25 04:00 05/29/25 04:00 Temperature 97.7 F Pulse Rate 86 95 Respiratory Rate 20 Blood Pressure 106/66 Pulse Oximetry 96 97 Oxygen Delivery Nasal Cannula Oxygen Flow Rate 2 05/29/25 04:00 05/29/25 06:00 05/29/25 08:00 Temperature 97.8 F Pulse Rate 83 84 79 Respiratory Rate 20 Blood Pressure 105/63 Pulse Oximetry 96 Oxygen Delivery Oxygen Flow Rate Intake/Output Intake/Output: Intake & Output 05/26/25 05/27/25 05/28/25 05/29/25 23:59 23:59 23:59 23:59 Intake Total 1000 1308.3 136.0 Output Total 20 1075 250 Balance 980 233.3 -114.0 Meds/Results Medications: Active Medications Generic Name Dose Route Start Last Admin Trade Name Freq PRN Reason Stop Dose Admin Acetaminophen 650 mg 05/27/25 23:08 Acetaminophen 325 Mg Tablet PO Q4H PRN Mild Pain (1-3) or Fever Hydrocodone Bitart/Acetaminophen 1 tab 05/28/25 03:53 Hydrocodone/Acetaminophen (*Crx) 7.5-325 Mg Tablet PO Q6H PRN pain 4-10 Albuterol 2 puff 05/28/25 22:11 Albuterol Sulfate (*Sp) Aerosol 1 Puff INHALATION Q6H PRN shortness of breath or wheezing Amiodarone HCl 200 mg 05/28/25 21:00 05/28/25 20:06 Amiodarone Hcl 200 Mg Tablet PO 200 mg Q12HR BERNARDA Administration Aspirin 81 mg 05/28/25 09:00 05/28/25 09:57 Aspirin 81 Mg Enteric Tablet PO 81 mg QAM BERNARDA Administration Calcium Carbonate 400 mg 05/28/25 03:52 Calcium Carbonate (Tums) 500 Mg (200 Mg Elemental) PO Q6H PRN Indigestion Cyanocobalamin 500 mcg 05/28/25 09:00 05/28/25 09:56 Cyanocobalamin 500 Mcg Tablet PO 500 mcg DAILY BERNARDA Administration Digoxin 125 mcg 05/28/25 09:00 05/28/25 09:56 Digoxin Tab 125 Mcg Tablet PO 125 mcg QAM BERNARDA Administration Diltiazem HCl 30 mg 05/28/25 00:00 05/28/25 11:37 Diltiazem Hcl 30 Mg Tablet PO 30 mg Q6HR BERNARDA Administration Diltiazem HCl 360 mg 05/28/25 16:00 05/28/25 16:27 Diltiazem Hcl Cd 180 Mg Cap.24hr BY MOUTH 360 mg DAILY BERNARDA Administration Fish Oil 1 gm 05/28/25 09:00 05/28/25 09:57 [place] 3 Polyunsat Fatty Acids 1 Gm Cap PO 1 gm DAILY BERNARDA Administration Heparin Sodium (Porcine) 4,000 units 05/27/25 23:04 05/28/25 18:30 Heparin Sodium 5,000 Units/Ml Vial IV PUSH 4,000 units PRN PRN Administration aPTT less than 55 seconds Heparin Sodium (Porcine) 3,000 units 05/27/25 23:04 05/28/25 08:00 Heparin Sodium 5,000 Units/Ml Vial IV PUSH 3,000 units PRN PRN Administration aPTT 55 - 70 seconds Heparin Sodium/Dextrose 25,000 units in 250 mls @ 12 mls/hr 05/27/25 23:05 05/29/25 01:41 Heparin Sodium/D5w 100 Units/Ml IV CONT 1,200 units/hr .[id number] BERNARDA 12 mls/hr Titration Protocol 1,200 UNITS/HR Piperacillin/Tazobactam/Dextrose 3.375 gm in 50 mls @ 100 mls/hr 05/28/25 15:00 05/29/25 04:10 Zosyn 3.375 Gm/Ns 50 Ml IVPB Infused Q6H BERNARDA Infusion Lactobacillus Acidophilus 1 tablet 05/28/25 09:00 05/28/25 09:56 Acidophilus/Bulgaricus Chewable Tablet BY MOUTH 1 tablet DAILY BERNARDA Administration Metoprolol Succinate 100 mg 05/28/25 21:00 05/28/25 20:06 Metoprolol Succinate Ext Rel 100 Mg Tabcr PO 100 mg QHS [facility] Administration Multivitamins Therapeutic 1 tablet 05/28/25 09:00 05/28/25 09:56 Multivitamins Therapeutic Tab (*Bkc) PO 1 tablet DAILY BERNARDA Administration Ondansetron HCl 4 mg 05/27/25 23:08 Ondansetron Inj 4 Mg/2 Ml Vial IV PUSH Q4H PRN Nausea Tamsulosin HCl 0.4 mg 05/28/25 21:00 05/28/25 20:06 Tamsulosin Hcl 0.4 Mg Capsule PO 0.4 mg QHS [facility] Administration Umeclidinium [place] 1 puff 05/28/25 08:00 05/28/25 08:17 Umeclidinium [place] 62.5 Mcg Ellipta INHALATION 1 puff DAILYRT BERNARDA Administration Radiology Results: ITS Impressions Chest X-Ray 05/27/25 22:43 IMPRESSION: Trace bilateral pleural effusions with adjacent compressive atelectasis. Chest/Abdomen/Pelvis CTA 05/27/25 22:44 IMPRESSION: No pulmonary embolus. No aortic dissection. Small bilateral pleural effusions with adjacent compressive atelectasis. Gallbladder distention with mural thickening and trace surrounding inflammatory change, which may be related to vascular congestion and fluid overload rather than inflammatory gallbladder disease, for which clinical (and serologic) correlation is needed. Internal Auditory Canal CT 05/28/25 08:21 IMPRESSION: No definite abnormality seen in both temporal bones. Renal Ultrasound 05/28/25 21:32 IMPRESSION: No hydronephrosis or renal calculi. No findings to suggest medical renal disease. Simple cyst within the interpolar region of the right kidney, for which no further follow-up is needed. Labs Labs: Laboratory Results - last 24 hr 05/28/25 05/28/25 05/29/25 06:17 17:23 00:49 WBC RBC Hgb Hct MCV MCH MCHC RDW Plt Count MPV Immature Gran % (Auto) Neut % (Auto) Lymph % (Auto) [place] % (Auto) Eos % (Auto) Baso % (Auto) Lymph # (Auto) [place] # (Auto) Eos # (Auto) Baso # (Auto) Abs Immat Gran (auto) Absolute Neuts (auto) Absolute Nucleated RBC Nucleated RBC % APTT 36.1 107.0 H Sodium Potassium Chloride Carbon Dioxide Anion Gap BUN Creatinine Estim Creat Clear Calc Estimated GFR Glucose Calcium Magnesium Total Bilirubin AST ALT Alkaline Phosphatase Total Protein Albumin Procalcitonin 0.6 05/29/25 07:42 WBC 14.1 H RBC 4.23 L Hgb 13.3 L Hct 39.7 L MCV 93.9 MCH 31.4 MCHC 33.5 RDW 15.3 H Plt Count 136 L MPV 11.9 H Immature Gran % (Auto) 0.4 Neut % (Auto) 65.2 Lymph % (Auto) 24.3 [place] % (Auto) 8.0 Eos % (Auto) 1.8 Baso % (Auto) 0.3 Lymph # (Auto) 3.42 H [place] # (Auto) 1.1 H Eos # (Auto) 0.3 Baso # (Auto) 0.0 Abs Immat Gran (auto) 0.06 H Absolute Neuts (auto) 9.2 H Absolute Nucleated RBC 0.000 Nucleated RBC % 0.0 APTT Sodium 133 L Potassium 4.4 Chloride 100 Carbon Dioxide 24 Anion Gap 9 BUN 50 H Creatinine 1.55 H Estim Creat Clear Calc 35 Estimated GFR 44 L Glucose 114 H Calcium 8.4 Magnesium 1.9 Total Bilirubin 1.3 AST 58 ALT 40 Alkaline Phosphatase 60 Total Protein 6.3 Albumin 3.1 L Procalcitonin
[2025-05-29 08:23] LABS: Partial Thromboplastin Time 68.4 Seconds (22.3-36.8)
[2025-05-29] MEDS: UMECLIDINIUM BROMIDE 62.5 MCG ELLIPTA 1 PUFF INHALATION (08:58)
[2025-05-29] MEDS: CYANOCOBALAMIN 500 MCG TABLET PO (10:37)
[2025-05-29] MEDS: AMIODARONE HCL 200 MG TABLET PO ×2 (10:37→20:23)
[2025-05-29] MEDS: MULTIVITAMINS THERAPEUTIC TAB (*BKC) 1 TABLET PO (10:37)
[2025-05-29] MEDS: OMEGA 3 POLYUNSAT FATTY ACIDS 1 GM CAP PO (10:37)
[2025-05-29] MEDS: EMPAGLIFLOZIN 10 MG TABLET PO (10:37)
[2025-05-29] MEDS: DIGOXIN TAB 125 MCG TABLET PO (10:37)
[2025-05-29] MEDS: ACETAMINOPHEN 325 MG TABLET 650 MG PO (10:37)
[2025-05-29] MEDS: ASPIRIN 81 MG ENTERIC TABLET PO (10:37)
[2025-05-29] MEDS: ACIDOPHILUS/BULGARICUS CHEWABLE TABLET 1 TABLET BY MOUTH (10:38)
[2025-05-29] MEDS: FUROSEMIDE 20 MG TABLET PO (10:39)
[2025-05-29 11:49] LABS: Troponin I 2.380 ng/mL (0.000-0.034)
--- NOTE | 2025-05-29 16:32 | PM.IMPN ---
Progress Note: A&P Assessment and Plan (1) Non-ST elevation myocardial infarction (NSTEMI): Code(s): I21.4 - Non-ST elevation (NSTEMI) myocardial infarction Status: Acute (2) Atrial fibrillation with rapid ventricular response: Code(s): I48.91 - Unspecified atrial fibrillation Status: Acute (3) Acute kidney injury: Code(s): N17.9 - Acute kidney failure, unspecified Status: Acute (4) Elevated liver enzymes: Code(s): R74.8 - Abnormal levels of other serum enzymes Status: Acute (5) Heart failure with preserved ejection fraction: Code(s): I50.30 - Unspecified diastolic (congestive) heart failure Status: Acute Plan This is a 79-year-old male with history of atrial fibrillation, hypertension, hepatitis-C, chronic kidney disease stage 3, chronic obstructive pulmonary disease, prediabetes, obstructive sleep apnea, benign prostatic hyperplasia, and cerebral aneurysm status post coil who presented to the emergency department via private vehicle from home with several complaints. He was admitted to the hospital earlier this month with pneumonia and ?I think its back again? although he has difficulties elaborating. He says that he is short of breath but has been so for a year or more. He has an occasional cough which is occasionally productive although he cannot describe his sputum quality or quantity. He does report that his appetite has not been great since his hospitalization. He is having difficulties starting his urine stream and he also mentions that he has been out of his tamsulosin for a bit. Additionally he complains of fullness in his ears, on losses though he is underwater, which has been occurring off and on for quite some time. After extensive questioning, it sounds as though overall he is just not feeling well with generalized malaise and weakness. He cannot really pinpoint any one specific symptom. He denies fever, chills, sweats, sinus congestion, sore throat, dysphagia, concerns for aspiration, chest pain, pleuritic pain, palpitations, abdominal pain, nausea, vomiting, diarrhea, dysuria, lower extremity edema, and calf pain. In the ED: Vital signs on arrival include a temperature of 97.6?, blood pressure 113/67, pulse 53, respiratory rate 16, SpO2 96% on room air. Labs were significant for a WBC count of 18.0, D-dimer 0.99, sodium 134, BUN 44, creatinine 1.85, glucose 123, total bilirubin 1.6, AST 73, ALT 53, alkaline phosphatase 67, troponin 5.340, proBNP greater than 30,000. EKG showed T-wave inversions concerning for ischemia in the inferior lateral leads. CTA of the chest, abdomen, and pelvis was negative for pulmonary embolism and aortic dissection. Small bilateral pleural effusions with adjacent compressive atelectasis was noted as well as gallbladder distension with mural thickening and trace surrounding inflammatory change which may be related to vascular congestion and fluid overload. A few hours after presentation, he went into rapid atrial fibrillation with rates into the 120s to 140s. He has been rate controlled since receiving an IV diltiazem bolus. During his most recent hospitalization, there were difficulties controlling his rate and diltiazem was increased to 360 mg daily. He has been out of this medication for several days however. Additionally, he seems to be confused about whether not he is supposed to be taking apixaban and he states that he has not been taking it for unclear reasons. He was started on a heparin drip for non STEMI and is being admitted to the IMU in this setting for close monitoring and Cardiology consultation. Atrial fibrillation with rapid ventricular rate out of diltiazem at home. Resumed 360 mg of diltiazem. Switched to amiodarone oral per Cardiology Non-STEMI with elevated troponin and EKG changes. Serial troponin 5.34-5.6 6-5.5. Possible acute coronary syndrome or due to CHF or AFib with RVR.. CTA with no PE no aortic dissection. Small bilateral pleural effusion with adjacent compressive atelectasis. Gallbladder distention mural thickening and trace surrounding inflammatory change which may be related to vascular congestion and fluid overload rather than inflammatory gallbladder disease. Chest x-ray with trace bilateral pleural effusion with adjacent compressive atelectasis. Echo with EF 15-20% suggestive of Takotsubo cardiomyopathy. Plan for [facility] on Saturday. Pneumonia elevated leukocytosis chest x-ray with small bilateral pleural effusion with adjacent compressive atelectasis. Added Zosyn. Respiratory pathogen panel pending. Procalcitonin 0.6. No obvious pneumonia on CTA. He did receive a dose of Lasix. WILLIAM and CKD stage 3 baseline creatinine 1.2 admission creatinine 1.8. Creatinine improving no catheterization due to WILLIAM noted. BPH on Flomax Elevated liver enzymes right upper quadrant ultrasound ordered. CT evidence of gallbladder distention with mural thickening and trace surrounding inflammatory change which may be related to vascular congestion and fluid overload received a dose of Lasix. Abdominal ultrasound with prominent edematous appearing gallbladder wall thickening with cholelithiasis. History of hepatitis-C COPD not in exacerbation Prediabetes Obstructive sleep apnea Cerebral aneurysm status post coiling. DVT prophylaxis on heparin drip. Eliquis on hold Subjective Date/time seen: 05/29/25 16:32 Interval history: No overnight events. Denies any chest pain. Heart rate is improved. Still in AFib rhythm. Denies any abdominal pain nausea vomiting. Review of Systems Review of Systems: All systems reviewed & are unremarkable except as noted in HPI and below Exam Narrative: General: Chronically ill-appearing elderly male in the semi-Ng position no acute distress. HEENT: PERRL, EOMI. Sclera anicteric. Oral mucosa moist. Neck: Supple. No JVD. No stridor. Respiratory: Respirations are nonlabored he speaking in full sentences. Lung sounds diminished with no added sounds Cardiovascular: Irregularly irregular rate and rhythm. Rate controlled Gastrointestinal: Abdomen is soft, nontender, and nondistended with positive bowel sounds. Skin: Warm and dry. No rash or lesions on limited exam. Extremities: No cyanosis or clubbing. Trace tello ankle edema bilaterally. Neurological: Alert. Cranial nerves grossly intact. No gross focal deficits to casual conversation. Psychiatric: Pleasant and cooperative with appropriate mood and affect. Objective Data Vital Signs Vital Signs: Vital Signs - 24 hr 05/28/25 18:00 05/28/25 20:00 05/28/25 20:00 Temperature Pulse Rate 110 H 115 H Respiratory Rate Blood Pressure Pulse Oximetry 96 Oxygen Delivery Nasal Cannula Oxygen Flow Rate 2 05/28/25 20:00 05/28/25 20:06 05/28/25 22:00 Temperature 97.5 F L Pulse Rate 128 H 109 H 89 Respiratory Rate 20 Blood Pressure 114/82 Pulse Oximetry 97 Oxygen Delivery Oxygen Flow Rate 05/28/25 23:58 05/29/25 00:00 05/29/25 00:00 Temperature 97.7 F Pulse Rate 85 115 H Respiratory Rate 20 Blood Pressure 100/75 Pulse Oximetry 96 96 Oxygen Delivery Nasal Cannula Oxygen Flow Rate 2 05/29/25 02:00 05/29/25 04:00 05/29/25 04:00 Temperature 97.7 F Pulse Rate 86 95 Respiratory Rate 20 Blood Pressure 106/66 Pulse Oximetry 96 97 Oxygen Delivery Nasal Cannula Oxygen Flow Rate 2 05/29/25 04:00 05/29/25 06:00 05/29/25 08:00 Temperature 97.8 F Pulse Rate 83 84 79 Respiratory Rate 20 Blood Pressure 105/63 Pulse Oximetry 96 Oxygen Delivery Oxygen Flow Rate 05/29/25 08:59 05/29/25 08:59 05/29/25 10:37 Temperature Pulse Rate 76 76 81 Respiratory Rate 20 20 Blood Pressure Pulse Oximetry 92 Oxygen Delivery Nasal Cannula Oxygen Flow Rate 2 05/29/25 10:37 05/29/25 12:46 05/29/25 16:28 Temperature 97.6 F 97.4 F L Pulse Rate 81 71 70 Respiratory Rate 22 H 20 Blood Pressure 101/57 L 91/65 L Pulse Oximetry 94 96 Oxygen Delivery Oxygen Flow Rate Intake/Output Intake/Output: Intake & Output 05/26/25 05/27/25 05/28/25 05/29/25 23:59 23:59 23:59 23:59 Intake Total 1000 1308.3 773.4 Output Total 20 1075 500 Balance 980 233.3 273.4 Meds/Results Medications: Active Medications Generic Name Dose Route Start Last Admin Trade Name Freq PRN Reason Stop Dose Admin Acetaminophen 650 mg 05/27/25 23:08 05/29/25 10:37 Acetaminophen 325 Mg Tablet PO 650 mg Q4H PRN Administration Mild Pain (1-3) or Fever Hydrocodone Bitart/Acetaminophen 1 tab 05/28/25 03:53 Hydrocodone/Acetaminophen (*Crx) 7.5-325 Mg Tablet PO Q6H PRN pain 4-10 Albuterol 2 puff 05/28/25 22:11 Albuterol Sulfate (*Sp) Aerosol 1 Puff INHALATION Q6H PRN shortness of breath or wheezing Amiodarone HCl 200 mg 05/28/25 21:00 05/29/25 10:37 Amiodarone Hcl 200 Mg Tablet PO 200 mg Q12HR BERNARDA Administration Aspirin 81 mg 05/28/25 09:00 05/29/25 10:37 Aspirin 81 Mg Enteric Tablet PO 81 mg QAM BERNARDA Administration Calcium Carbonate 400 mg 05/28/25 03:52 Calcium Carbonate (Tums) 500 Mg (200 Mg Elemental) PO Q6H PRN Indigestion Cyanocobalamin 500 mcg 05/28/25 09:00 05/29/25 10:37 Cyanocobalamin 500 Mcg Tablet PO 500 mcg DAILY BERNARDA Administration Digoxin 125 mcg 05/28/25 09:00 05/29/25 10:37 Digoxin Tab 125 Mcg Tablet PO 125 mcg QAM BERNARDA Administration Diltiazem HCl 30 mg 05/28/25 00:00 05/28/25 11:37 Diltiazem Hcl 30 Mg Tablet PO 30 mg Q6HR BERNARDA Administration Empagliflozin 10 mg 05/29/25 09:00 05/29/25 10:37 Empagliflozin 10 Mg Tablet PO 10 mg DAILY BERNARDA Administration Fish Oil 1 gm 05/28/25 09:00 05/29/25 10:37 [place] 3 Polyunsat Fatty Acids 1 Gm Cap PO 1 gm DAILY BERNARDA Administration Furosemide 20 mg 05/29/25 09:00 05/29/25 10:39 Furosemide 20 Mg Tablet PO 20 mg DAILY BERNARDA Administration Heparin Sodium (Porcine) 4,000 units 05/27/25 23:04 05/28/25 18:30 Heparin Sodium 5,000 Units/Ml Vial IV PUSH 4,000 units PRN PRN Administration aPTT less than 55 seconds Heparin Sodium (Porcine) 3,000 units 05/27/25 23:04 05/29/25 10:38 Heparin Sodium 5,000 Units/Ml Vial IV PUSH 3,000 units PRN PRN Administration aPTT 55 - 70 seconds Heparin Sodium/Dextrose 25,000 units in 250 mls @ 13 mls/hr 05/27/25 23:05 05/29/25 10:38 Heparin Sodium/D5w 100 Units/Ml IV CONT 13 units/hr .[id number] BERNARDA 0.13 mls/hr Titration Protocol 1,300 UNITS/HR Piperacillin/Tazobactam/Dextrose 3.375 gm in 50 mls @ 100 mls/hr 05/28/25 15:00 05/29/25 16:06 Zosyn 3.375 Gm/Ns 50 Ml IVPB 100 mls/hr Q6H BERNARDA Administration Lactobacillus Acidophilus 1 tablet 05/28/25 09:00 05/29/25 10:38 Acidophilus/Bulgaricus Chewable Tablet BY MOUTH 1 tablet DAILY BERNARDA Administration Metoprolol Succinate 100 mg 05/28/25 21:00 05/28/25 20:06 Metoprolol Succinate Ext Rel 100 Mg Tabcr PO 100 mg QHS BERNARDA Administration Multivitamins Therapeutic 1 tablet 05/28/25 09:00 05/29/25 10:37 Multivitamins Therapeutic Tab (*Bkc) PO 1 tablet DAILY BERNARDA Administration Ondansetron HCl 4 mg 05/27/25 23:08 Ondansetron Inj 4 Mg/2 Ml Vial IV PUSH Q4H PRN Nausea Tamsulosin HCl 0.4 mg 05/28/25 21:00 05/28/25 20:06 Tamsulosin Hcl 0.4 Mg Capsule PO 0.4 mg QHS BERNARDA Administration Umeclidinium [place] 1 puff 05/28/25 08:00 05/29/25 08:58 Umeclidinium [place] 62.5 Mcg Ellipta INHALATION 1 puff DAILYRT BERNARDA Administration Radiology Results: ITS Impressions Chest X-Ray 05/27/25 22:43 IMPRESSION: Trace bilateral pleural effusions with adjacent compressive atelectasis. Chest/Abdomen/Pelvis CTA 05/27/25 22:44 IMPRESSION: No pulmonary embolus. No aortic dissection. Small bilateral pleural effusions with adjacent compressive atelectasis. Gallbladder distention with mural thickening and trace surrounding inflammatory change, which may be related to vascular congestion and fluid overload rather than inflammatory gallbladder disease, for which clinical (and serologic) correlation is needed. Internal Auditory Canal CT 05/28/25 08:21 IMPRESSION: No definite abnormality seen in both temporal bones. Renal Ultrasound 05/28/25 21:32 IMPRESSION: No hydronephrosis or renal calculi. No findings to suggest medical renal disease. Simple cyst within the interpolar region of the right kidney, for which no further follow-up is needed. Abdomen Ultrasound 05/29/25 12:51 IMPRESSION: 1. Cholelithiasis and prominent edematous-appearing gallbladder wall thickening but with negative sonographic Snowden's sign which is equivocal for acute cholecystitis. No significant surrounding infiltration and was evident on the prior CT and the gallbladder wall thickening could potentially also be secondary to heart failure, liver disease, renal failure or other generalized edema forming states. Could consider HIDA scan for further evaluation as clinically indicated. Labs Labs: Laboratory Results - last 24 hr 06/27/25 06/28/25 06/28/25 17:23 00:49 07:42 WBC 14.1 H RBC 4.23 L Hgb 13.3 L Hct 39.7 L MCV 93.9 MCH 31.4 MCHC 33.5 RDW 15.3 H Plt Count 136 L MPV 11.9 H Immature Gran % (Auto) 0.4 Neut % (Auto) 65.2 Lymph % (Auto) 24.3 [place] % (Auto) 8.0 Eos % (Auto) 1.8 Baso % (Auto) 0.3 Lymph # (Auto) 3.42 H [place] # (Auto) 1.1 H Eos # (Auto) 0.3 Baso # (Auto) 0.0 Abs Immat Gran (auto) 0.06 H Absolute Neuts (auto) 9.2 H Absolute Nucleated RBC 0.000 Nucleated RBC % 0.0 APTT 36.1 107.0 H 68.4 H Sodium 133 L Potassium 4.4 Chloride 100 Carbon Dioxide 24 Anion Gap 9 BUN 50 H Creatinine 1.55 H Estim Creat Clear Calc 35 Estimated GFR 44 L Glucose 114 H Calcium 8.4 Magnesium 1.9 Total Bilirubin 1.3 AST 58 ALT 40 Alkaline Phosphatase 60 Troponin I 2.380 H* Total Protein 6.3 Albumin 3.1 L
[2025-05-29 17:21] LABS: Partial Thromboplastin Time 90.1 Seconds (22.3-36.8)
[2025-05-29] MEDS: METOPROLOL SUCCINATE EXT REL 100 MG TABCR PO (20:23)
[2025-05-29] MEDS: TAMSULOSIN HCL 0.4 MG CAPSULE PO (20:23)
[2025-05-29 23:52] LABS: Partial Thromboplastin Time 74.8 Seconds (22.3-36.8)
[2025-05-30] VITALS (26 sets, daily range): BP systolic 97–112; BP diastolic 57–79; PULSE 60–132; RESP 16–23; TEMP 36.3–37.2; O2SAT 93–98
[2025-05-30] MEDS: MELATONIN 3 MG TABLET PO (00:18)
[2025-05-30] MEDS: PIPERACILLN/TAZ 3.375GM/NS50ML 3.375 GM/50 ML BAG IVPB ×4 (03:39→20:57)
[2025-05-30 04:59] LABS: Hematocrit 39.3 % (42.0-52.0); Hemoglobin 13.1 g/dL (14.0-18.0); Immature Granulocyte Percent A 0.5 % (0-0.5); Lymphocytes Absolute Auto 3.14 K/mm3 (0.9-3.2); Mean Corpuscular HGB Conc 33.3 g/dl (32-36); Mean Corpuscular Hemoglobin 31.2 pg (26-34); Mean Corpuscular Volume 93.6 fl (80-100); Nucleated Red Blood Cells Absolute Auto 0.000 K/mm3 (0.0-0.012); Nucleated Red Blood Cells Perc 0.0 % (0.0-0.2); Platelet Count Result 138 k/mm3 (150-375); Red Blood Count 4.20 M/mm3 (4.6-6.20); White Blood Count 12.1 K/mm3 (4.5-10.0)
[2025-05-30 05:22] LABS: Alanine Aminotransferase 42 U/L (6-50); Albumin Level 3.0 g/dL (3.5-5.1); Alkaline Phosphatase 58 U/L (38-126); Anion Gap 8 mmol/L (4-12); Aspartate Amino Transferase 57 U/L (17-59); Bilirubin,Total 1.2 mg/dL (0.2-1.3); Blood Urea Nitrogen 49 mg/dL (9-20); Calcium 8.3 mg/dL (8.4-10.2); Carbon Dioxide 24 mmol/L (22-30); Chloride 100 mmol/L (98-107); Estimated CRCL calculation 33 ml/min; Estimated Glomerular Filt Rate 41; Glucose 111 mg/dL (65-110); Magnesium 1.8 mg/dL (1.6-2.3); Potassium 3.9 mmol/L (3.4-5.0); Sodium 132 mmol/L (137-145); Total Protein 6.2 g/dL (6.3-8.2)
[2025-05-30 06:12] LABS: Partial Thromboplastin Time 92.9 Seconds (22.3-36.8)
[2025-05-30] MEDS: UMECLIDINIUM BROMIDE 62.5 MCG ELLIPTA 1 PUFF INHALATION (07:44)
--- NOTE | 2025-05-30 07:51 | ECG_ITS ---
Test Date: 2025-05-30 09:33:51 Measurements Intervals [place] Rate: 94 P: 0 NH: 0 QRS: 38 QRSD: 103 T: 238 QT: 394 QTc: 493 Interpretive Statements ATRIAL FIBRILLATION CANNOT R/O SEPTAL INFARCT, AGE INDETERMINATE ST-T WAVE ABNORMALITY IN DIFFUSE LEADS- CONSIDER ISCHEMIA BASELINE WANDER- I, II, III, AVR, AVL, AVF, V3 ABNORMAL ECG Compared to ECG 05/29/2025 08:02:23 NO SIGNIFICANT CHANGE Electronically Signed On 05-30-2025 13:53:43 CDT by Ezequiel Hutchinson D.O.
--- NOTE | 2025-05-30 08:23 | PM.PNCARD ---
Progress Note: A&P Assessment and Plan (1) Atrial fibrillation with rapid ventricular response: Code(s): I48.91 - Unspecified atrial fibrillation Status: Acute Assessment and Plan: In atrial fibrillation with HR controlled today. [id number]. Was on Eliquis in hospital but he did not continue it upon discharge recently. On Metoprolol, and Digoxin and Amiodarone. Diltiazem was restarted as he was not taking it at home when it ran out a few days ago. Monitor HR. On Amiodarone since 05/28/25 to improve HR or cardiovert. Check EKG. Stopped Cardizem since HR is controlled today and to avoid negative inotropic medication without HF benefit. (2) Elevated troponin: Code(s): R79.89 - Other specified abnormal findings of blood chemistry Status: Acute Assessment and Plan: Moderately elevated 5.6 and trending down. Possible due to tachycardia mediated cardiomyopathy, Takotsubo cardiomyopathy or ACS in that order, or from Noncardiac such as pneumonia. On heparin drip. (3) Essential (primary) hypertension: Code(s): I10 - Essential (primary) hypertension Status: Acute Assessment and Plan: Stable. (4) Systolic heart failure: Code(s): I50.20 - Unspecified systolic (congestive) heart failure Status: Acute Assessment and Plan: Acute. Possible due to tachycardia mediated cardiomyopathy, Takotsubo cardiomyopathy or ACS in that order. 05/28/25 Limited echo: EF 15-20%, severe LVE, only small basal segments have normal contractility s/o Takotsubo cardiomyopathy, diastolic function not assessed. Rate is controlled today. Started Jardiance 10 mg daily. Hold off on Entresto due to low normal BP and kidney impairment. Plan for C on Saturday to r/o ACS. Continue aspirin. Continue heparin drip for possible ACS and for atrial fib anticoagulation. Ordered life vest to prevent sudden cardiac arrest though patient still wants to think about it. Subjective Date/time seen: 05/30/25 08:23 Interval history: Denies chest pain. States breathing is improving. Has some cough with sputum. Exam Const: General: cooperative, healthy appearing and comfortable Orientation/consciousness: oriented to person, oriented to place and oriented to time Resp: Auscultation: clear to auscultation bilaterally, no crackles, no rales, no rhonchi and no wheezes Cardio: Rate: regular rate Rhythm: abnormal rhythm Heart sounds: no murmurs Peripheral pulses: dorsalis pedis present Neuro: General: oriented to person, oriented to place and oriented to time Extrem: Right lower extremity: no edema Left lower extremity: no edema Objective Data Vital Signs Vital Signs: Vital Signs - 24 hr 05/29/25 08:59 05/29/25 08:59 05/29/25 10:00 Temperature Pulse Rate 76 76 85 Respiratory Rate 20 20 Blood Pressure Pulse Oximetry 92 Oxygen Delivery Nasal Cannula Oxygen Flow Rate 2 05/29/25 10:37 05/29/25 10:37 05/29/25 12:00 Temperature Pulse Rate 81 81 63 Respiratory Rate Blood Pressure Pulse Oximetry Oxygen Delivery Oxygen Flow Rate 05/29/25 12:00 05/29/25 12:46 05/29/25 14:00 Temperature 97.6 F Pulse Rate 71 78 Respiratory Rate 22 H Blood Pressure 101/57 L Pulse Oximetry 96 94 Oxygen Delivery Nasal Cannula Oxygen Flow Rate 2 05/29/25 16:00 05/29/25 16:00 05/29/25 16:28 Temperature 97.4 F L Pulse Rate 71 70 Respiratory Rate 20 Blood Pressure 91/65 L Pulse Oximetry 96 96 Oxygen Delivery Nasal Cannula Oxygen Flow Rate 2 05/29/25 18:00 05/29/25 19:52 05/29/25 20:00 Temperature 97.8 F Pulse Rate 90 87 Respiratory Rate 22 H Blood Pressure 109/68 Pulse Oximetry 95 95 Oxygen Delivery Nasal Cannula Oxygen Flow Rate 2 05/29/25 20:00 05/29/25 20:23 05/29/25 22:00 Temperature Pulse Rate 84 90 86 Respiratory Rate Blood Pressure Pulse Oximetry Oxygen Delivery Oxygen Flow Rate 05/30/25 00:00 05/30/25 00:00 05/30/25 00:03 Temperature 98.9 F Pulse Rate 96 82 Respiratory Rate 20 Blood Pressure 97/57 L Pulse Oximetry 95 Oxygen Delivery Room Air Oxygen Flow Rate 05/30/25 02:00 05/30/25 03:25 05/30/25 04:00 Temperature 98.0 F Pulse Rate 81 77 Respiratory Rate 20 Blood Pressure 106/64 Pulse Oximetry 96 Oxygen Delivery Room Air Oxygen Flow Rate 05/30/25 04:00 05/30/25 06:00 05/30/25 07:29 Temperature 97.3 F L Pulse Rate 77 60 91 Respiratory Rate 18 Blood Pressure 109/72 Pulse Oximetry 95 Oxygen Delivery Oxygen Flow Rate 05/30/25 07:45 Temperature Pulse Rate 72 Respiratory Rate 20 Blood Pressure Pulse Oximetry Oxygen Delivery Oxygen Flow Rate Intake/Output Intake/Output: Intake & Output 05/27/25 05/28/25 05/29/25 05/30/25 23:59 23:59 23:59 23:59 Intake Total 1000 1308.3 1345.5 688.6 Output Total 20 1075 650 500 Balance 980 233.3 695.5 188.6 Meds/Results Medications: Active Medications Generic Name Dose Route Start Last Admin Trade Name Freq PRN Reason Stop Dose Admin Acetaminophen 650 mg 05/27/25 23:08 05/29/25 10:37 Acetaminophen 325 Mg Tablet PO 650 mg Q4H PRN Administration Mild Pain (1-3) or Fever Hydrocodone Bitart/Acetaminophen 1 tab 05/28/25 03:53 Hydrocodone/Acetaminophen (*Crx) 7.5-325 Mg Tablet PO Q6H PRN pain 4-10 Albuterol 2 puff 05/28/25 22:11 Albuterol Sulfate (*Sp) Aerosol 1 Puff INHALATION Q6H PRN shortness of breath or wheezing Amiodarone HCl 200 mg 05/28/25 21:00 05/29/25 20:23 Amiodarone Hcl 200 Mg Tablet PO 200 mg Q12HR BERNARDA Administration Aspirin 81 mg 05/28/25 09:00 05/29/25 10:37 Aspirin 81 Mg Enteric Tablet PO 81 mg QAM BERNARDA Administration Calcium Carbonate 400 mg 05/28/25 03:52 Calcium Carbonate (Tums) 500 Mg (200 Mg Elemental) PO Q6H PRN Indigestion Cyanocobalamin 500 mcg 05/28/25 09:00 05/29/25 10:37 Cyanocobalamin 500 Mcg Tablet PO 500 mcg DAILY BERNARDA Administration Digoxin 125 mcg 05/28/25 09:00 05/29/25 10:37 Digoxin Tab 125 Mcg Tablet PO 125 mcg QAM BERNARDA Administration Diltiazem HCl 30 mg 05/28/25 00:00 05/28/25 11:37 Diltiazem Hcl 30 Mg Tablet PO 30 mg Q6HR BERNARDA Administration Empagliflozin 10 mg 05/29/25 09:00 05/29/25 10:37 Empagliflozin 10 Mg Tablet PO 10 mg DAILY BERNARDA Administration Fish Oil 1 gm 05/28/25 09:00 05/29/25 10:37 [place]el 3 Polyunsat Fatty Acids 1 Gm Cap PO 1 gm DAILY BERNARDA Administration Furosemide 20 mg 05/29/25 09:00 05/29/25 10:39 Furosemide 20 Mg Tablet PO 20 mg DAILY BERNARDA Administration Heparin Sodium (Porcine) 4,000 units 05/27/25 23:04 05/28/25 18:30 Heparin Sodium 5,000 Units/Ml Vial IV PUSH 4,000 units PRN PRN Administration aPTT less than 55 seconds Heparin Sodium (Porcine) 3,000 units 05/27/25 23:04 05/29/25 10:38 Heparin Sodium 5,000 Units/Ml Vial IV PUSH 3,000 units PRN PRN Administration aPTT 55 - 70 seconds Heparin Sodium/Dextrose 25,000 units in 250 mls @ 13 mls/hr 05/27/25 23:05 05/30/25 06:19 Heparin Sodium/D5w 100 Units/Ml IV CONT 1,300 units/hr .[id number] BERNARDA 13 mls/hr Titration Protocol 1,300 UNITS/HR Piperacillin/Tazobactam/Dextrose 3.375 gm in 50 mls @ 100 mls/hr 05/28/25 15:00 05/30/25 04:15 Zosyn 3.375 Gm/Ns 50 Ml IVPB Infused Q6H BERNARDA Infusion Lactobacillus Acidophilus 1 tablet 05/28/25 09:00 05/29/25 10:38 Acidophilus/Bulgaricus Chewable Tablet BY MOUTH 1 tablet DAILY BERNARDA Administration Melatonin 3 mg 05/29/25 22:03 05/30/25 00:18 Melatonin 3 Mg Tablet PO 3 mg HS PRN Administration Insomnia Metoprolol Succinate 100 mg 05/28/25 21:00 05/29/25 20:23 Metoprolol Succinate Ext Rel 100 Mg Tabcr PO 100 mg QHS BERNARDA Administration Multivitamins Therapeutic 1 tablet 05/28/25 09:00 05/29/25 10:37 Multivitamins Therapeutic Tab (*Bkc) PO 1 tablet DAILY BERNARDA Administration Ondansetron HCl 4 mg 05/27/25 23:08 Ondansetron Inj 4 Mg/2 Ml Vial IV PUSH Q4H PRN Nausea Tamsulosin HCl 0.4 mg 05/28/25 21:00 05/29/25 20:23 Tamsulosin Hcl 0.4 Mg Capsule PO 0.4 mg QHS BERNARDA Administration Umeclidinium [place] 1 puff 05/28/25 08:00 05/30/25 07:44 Umeclidinium [place] 62.5 Mcg Ellipta INHALATION 1 puff DAILYRT BERNARDA Administration Radiology Results: ITS Impressions Chest X-Ray 05/27/25 22:43 IMPRESSION: Trace bilateral pleural effusions with adjacent compressive atelectasis. Chest/Abdomen/Pelvis CTA 05/27/25 22:44 IMPRESSION: No pulmonary embolus. No aortic dissection. Small bilateral pleural effusions with adjacent compressive atelectasis. Gallbladder distention with mural thickening and trace surrounding inflammatory change, which may be related to vascular congestion and fluid overload rather than inflammatory gallbladder disease, for which clinical (and serologic) correlation is needed. Internal Auditory Canal CT 05/28/25 08:21 IMPRESSION: No definite abnormality seen in both temporal bones. Renal Ultrasound 05/28/25 21:32 IMPRESSION: No hydronephrosis or renal calculi. No findings to suggest medical renal disease. Simple cyst within the interpolar region of the right kidney, for which no further follow-up is needed. Abdomen Ultrasound 05/29/25 12:51 IMPRESSION: 1. Cholelithiasis and prominent edematous-appearing gallbladder wall thickening but with negative sonographic Snowden's sign which is equivocal for acute cholecystitis. No significant surrounding infiltration and was evident on the prior CT and the gallbladder wall thickening could potentially also be secondary to heart failure, liver disease, renal failure or other generalized edema forming states. Could consider HIDA scan for further evaluation as clinically indicated. Labs Labs: Laboratory Results - last 24 hr 05/29/25 05/29/25 05/29/25 07:42 17:02 23:13 WBC RBC Hgb Hct MCV MCH MCHC RDW Plt Count MPV Immature Gran % (Auto) Neut % (Auto) Lymph % (Auto) [place] % (Auto) Eos % (Auto) Baso % (Auto) Lymph # (Auto) [place] # (Auto) Eos # (Auto) Baso # (Auto) Abs Immat Gran (auto) Absolute Neuts (auto) Absolute Nucleated RBC Nucleated RBC % APTT 68.4 H 90.1 H 74.8 H Sodium Potassium Chloride Carbon Dioxide Anion Gap BUN Creatinine Estim Creat Clear Calc Estimated GFR Glucose Calcium Magnesium Total Bilirubin AST ALT Alkaline Phosphatase Troponin I 2.380 H* Total Protein Albumin 05/30/25 04:52 WBC 12.1 H RBC 4.20 L Hgb 13.1 L Hct 39.3 L MCV 93.6 MCH 31.2 MCHC 33.3 RDW 15.2 H Plt Count 138 L MPV 12.2 H Immature Gran % (Auto) 0.5 Neut % (Auto) 62.5 Lymph % (Auto) 26.0 [place] % (Auto) 7.5 Eos % (Auto) 3.3 Baso % (Auto) 0.2 Lymph # (Auto) 3.14 [place] # (Auto) 0.9 H Eos # (Auto) 0.4 H Baso # (Auto) 0.0 Abs Immat Gran (auto) 0.06 H Absolute Neuts (auto) 7.5 H Absolute Nucleated RBC 0.000 Nucleated RBC % 0.0 APTT 92.9 H Sodium 132 L Potassium 3.9 Chloride 100 Carbon Dioxide 24 Anion Gap 8 BUN 49 H Creatinine 1.62 H Estim Creat Clear Calc 33 Estimated GFR 41 L Glucose 111 H Calcium 8.3 L Magnesium 1.8 Total Bilirubin 1.2 AST 57 ALT 42 Alkaline Phosphatase 58 Troponin I Total Protein 6.2 L Albumin 3.0 L
[2025-05-30] MEDS: OMEGA 3 POLYUNSAT FATTY ACIDS 1 GM CAP PO (10:11)
[2025-05-30] MEDS: ACIDOPHILUS/BULGARICUS CHEWABLE TABLET 1 TABLET BY MOUTH (10:11)
[2025-05-30] MEDS: ASPIRIN 81 MG ENTERIC TABLET PO (10:11)
[2025-05-30] MEDS: DIGOXIN TAB 125 MCG TABLET PO (10:11)
[2025-05-30] MEDS: FUROSEMIDE 20 MG TABLET PO (10:12)
[2025-05-30] MEDS: AMIODARONE HCL 200 MG TABLET PO ×2 (10:12→20:59)
[2025-05-30] MEDS: MULTIVITAMINS THERAPEUTIC TAB (*BKC) 1 TABLET PO (10:12)
[2025-05-30] MEDS: CYANOCOBALAMIN 500 MCG TABLET PO (10:12)
[2025-05-30] MEDS: EMPAGLIFLOZIN 10 MG TABLET PO (10:12)
[2025-05-30] MEDS: ALBUTEROL SULFATE (*SP) AEROSOL 1 PUFF 2 PUFF INHALATION (10:28)
--- NOTE | 2025-05-30 14:24 | PM.IMPN ---
Progress Note: A&P Assessment and Plan (1) Non-ST elevation myocardial infarction (NSTEMI): Code(s): I21.4 - Non-ST elevation (NSTEMI) myocardial infarction Status: Acute (2) Atrial fibrillation with rapid ventricular response: Code(s): I48.91 - Unspecified atrial fibrillation Status: Acute (3) Acute kidney injury: Code(s): N17.9 - Acute kidney failure, unspecified Status: Acute (4) Elevated liver enzymes: Code(s): R74.8 - Abnormal levels of other serum enzymes Status: Acute (5) Heart failure with preserved ejection fraction: Code(s): I50.30 - Unspecified diastolic (congestive) heart failure Status: Acute Plan This is a 79-year-old male with history of atrial fibrillation, hypertension, hepatitis-C, chronic kidney disease stage 3, chronic obstructive pulmonary disease, prediabetes, obstructive sleep apnea, benign prostatic hyperplasia, and cerebral aneurysm status post coil who presented to the emergency department via private vehicle from home with several complaints. He was admitted to the hospital earlier this month with pneumonia and ?I think its back again? although he has difficulties elaborating. He says that he is short of breath but has been so for a year or more. He has an occasional cough which is occasionally productive although he cannot describe his sputum quality or quantity. He does report that his appetite has not been great since his hospitalization. He is having difficulties starting his urine stream and he also mentions that he has been out of his tamsulosin for a bit. Additionally he complains of fullness in his ears, on losses though he is underwater, which has been occurring off and on for quite some time. After extensive questioning, it sounds as though overall he is just not feeling well with generalized malaise and weakness. He cannot really pinpoint any one specific symptom. He denies fever, chills, sweats, sinus congestion, sore throat, dysphagia, concerns for aspiration, chest pain, pleuritic pain, palpitations, abdominal pain, nausea, vomiting, diarrhea, dysuria, lower extremity edema, and calf pain. In the ED: Vital signs on arrival include a temperature of 97.6?, blood pressure 113/67, pulse 53, respiratory rate 16, SpO2 96% on room air. Labs were significant for a WBC count of 18.0, D-dimer 0.99, sodium 134, BUN 44, creatinine 1.85, glucose 123, total bilirubin 1.6, AST 73, ALT 53, alkaline phosphatase 67, troponin 5.340, proBNP greater than 30,000. EKG showed T-wave inversions concerning for ischemia in the inferior lateral leads. CTA of the chest, abdomen, and pelvis was negative for pulmonary embolism and aortic dissection. Small bilateral pleural effusions with adjacent compressive atelectasis was noted as well as gallbladder distension with mural thickening and trace surrounding inflammatory change which may be related to vascular congestion and fluid overload. A few hours after presentation, he went into rapid atrial fibrillation with rates into the 120s to 140s. He has been rate controlled since receiving an IV diltiazem bolus. During his most recent hospitalization, there were difficulties controlling his rate and diltiazem was increased to 360 mg daily. He has been out of this medication for several days however. Additionally, he seems to be confused about whether not he is supposed to be taking apixaban and he states that he has not been taking it for unclear reasons. He was started on a heparin drip for non STEMI and is being admitted to the IMU in this setting for close monitoring and Cardiology consultation. Atrial fibrillation with rapid ventricular rate out of diltiazem at home. Resumed 360 mg of diltiazem. Switched to amiodarone oral per Cardiology Non-STEMI with elevated troponin and EKG changes. Serial troponin 5.34-5.6 6-5.5. Possible acute coronary syndrome or due to CHF or AFib with RVR.. CTA with no PE no aortic dissection. Small bilateral pleural effusion with adjacent compressive atelectasis. Gallbladder distention mural thickening and trace surrounding inflammatory change which may be related to vascular congestion and fluid overload rather than inflammatory gallbladder disease. Chest x-ray with trace bilateral pleural effusion with adjacent compressive atelectasis. Echo with EF 15-20% suggestive of Takotsubo cardiomyopathy. Plan for LHC on Saturday. Pneumonia elevated leukocytosis chest x-ray with small bilateral pleural effusion with adjacent compressive atelectasis. Added Zosyn. Will add Mucinex Respiratory pathogen panel pending. Procalcitonin 0.6. No obvious pneumonia on CTA. He did receive a dose of Lasix. WILLIAM and CKD stage 3 baseline creatinine 1.2 admission creatinine 1.8. Creatinine improving no catheterization due to WILLIAM noted. BPH on Flomax Elevated liver enzymes right upper quadrant ultrasound ordered. CT evidence of gallbladder distention with mural thickening and trace surrounding inflammatory change which may be related to vascular congestion and fluid overload received a dose of Lasix. Abdominal ultrasound with prominent edematous appearing gallbladder wall thickening with cholelithiasis. History of hepatitis-C COPD not in exacerbation Prediabetes Obstructive sleep apnea Cerebral aneurysm status post coiling. DVT prophylaxis on heparin drip. Eliquis on hold Subjective Date/time seen: 05/30/25 14:24 Interval history: No overnight events. Denies any chest pain. Reports shortness of breath and cough. Denies any abdominal pain nausea vomiting. Labs reviewed. Discussed with nursing staff. Review of Systems Review of Systems: All systems reviewed & are unremarkable except as noted in HPI and below Exam Narrative: General: Chronically ill-appearing elderly male in the semi-Ng position no acute distress. HEENT: PERRL, EOMI. Sclera anicteric. Oral mucosa moist. Neck: Supple. No JVD. No stridor. Respiratory: Respirations are nonlabored he speaking in full sentences. Lung sounds diminished with no added sounds Cardiovascular: Irregularly irregular rate and rhythm. Rate controlled Gastrointestinal: Abdomen is soft, nontender, and nondistended with positive bowel sounds. Skin: Warm and dry. No rash or lesions on limited exam. Extremities: No cyanosis or clubbing. Trace tello ankle edema bilaterally. Neurological: Alert. Cranial nerves grossly intact. No gross focal deficits to casual conversation. Psychiatric: Pleasant and cooperative with appropriate mood and affect. Objective Data Vital Signs Vital Signs: Vital Signs - 24 hr 05/29/25 16:00 05/29/25 16:00 05/29/25 16:28 Temperature 97.4 F L Pulse Rate 71 70 Respiratory Rate 20 Blood Pressure 91/65 L Pulse Oximetry 96 96 Oxygen Delivery Nasal Cannula Oxygen Flow Rate 2 05/29/25 18:00 05/29/25 19:52 05/29/25 20:00 Temperature 97.8 F Pulse Rate 90 87 Respiratory Rate 22 H Blood Pressure 109/68 Pulse Oximetry 95 95 Oxygen Delivery Nasal Cannula Oxygen Flow Rate 2 05/29/25 20:00 05/29/25 20:23 05/29/25 22:00 Temperature Pulse Rate 84 90 86 Respiratory Rate Blood Pressure Pulse Oximetry Oxygen Delivery Oxygen Flow Rate 05/30/25 00:00 05/30/25 00:00 05/30/25 00:03 Temperature 98.9 F Pulse Rate 96 82 Respiratory Rate 20 Blood Pressure 97/57 L Pulse Oximetry 95 Oxygen Delivery Room Air Oxygen Flow Rate 05/30/25 02:00 05/30/25 03:25 05/30/25 04:00 Temperature 98.0 F Pulse Rate 81 77 Respiratory Rate 20 Blood Pressure 106/64 Pulse Oximetry 96 Oxygen Delivery Room Air Oxygen Flow Rate 05/30/25 04:00 05/30/25 06:00 05/30/25 07:29 Temperature 97.3 F L Pulse Rate 77 60 91 Respiratory Rate 18 Blood Pressure 109/72 Pulse Oximetry 95 Oxygen Delivery Oxygen Flow Rate 05/30/25 07:45 05/30/25 08:00 05/30/25 10:11 Temperature Pulse Rate 72 88 Respiratory Rate 20 Blood Pressure Pulse Oximetry 95 Oxygen Delivery Nasal Cannula Oxygen Flow Rate 2 05/30/25 10:12 05/30/25 10:33 05/30/25 12:00 Temperature 97.5 F L Pulse Rate 88 88 112 H Respiratory Rate 20 18 Blood Pressure 112/79 Pulse Oximetry 93 Oxygen Delivery Oxygen Flow Rate Intake/Output Intake/Output: Intake & Output 05/27/25 05/28/25 05/29/25 05/30/25 23:59 23:59 23:59 23:59 Intake Total 1000 1308.3 1345.5 838.6 Output Total 20 1075 650 500 Balance 980 233.3 695.5 338.6 Meds/Results Medications: Active Medications Generic Name Dose Route Start Last Admin Trade Name Freq PRN Reason Stop Dose Admin Acetaminophen 650 mg 05/27/25 23:08 05/29/25 10:37 Acetaminophen 325 Mg Tablet PO 650 mg Q4H PRN Administration Mild Pain (1-3) or Fever Hydrocodone Bitart/Acetaminophen 1 tab 05/28/25 03:53 Hydrocodone/Acetaminophen (*Crx) 7.5-325 Mg Tablet PO Q6H PRN pain 4-10 Albuterol 2 puff 05/28/25 22:11 05/30/25 10:28 Albuterol Sulfate (*Sp) Aerosol 1 Puff INHALATION 2 puff Q6H PRN Administration shortness of breath or wheezing Albuterol/Ipratropium 3 ml 05/30/25 20:00 Ipratropium 0.5 Mg/Albuterol Sulfate 2.5 Mg Ampul.Neb 3 Ml INHALATION Q6HRT [facility] Amiodarone HCl 200 mg 05/28/25 21:00 05/30/25 10:12 Amiodarone Hcl 200 Mg Tablet PO 200 mg Q12HR BERNARDA Administration Aspirin 81 mg 05/28/25 09:00 05/30/25 10:11 Aspirin 81 Mg Enteric Tablet PO 81 mg QAM BERNARDA Administration Calcium Carbonate 400 mg 05/28/25 03:52 Calcium Carbonate (Tums) 500 Mg (200 Mg Elemental) PO Q6H PRN Indigestion Cyanocobalamin 500 mcg 05/28/25 09:00 05/30/25 10:12 Cyanocobalamin 500 Mcg Tablet PO 500 mcg DAILY BERNARDA Administration Digoxin 125 mcg 05/28/25 09:00 05/30/25 10:11 Digoxin Tab 125 Mcg Tablet PO 125 mcg QAM [facility] Administration Diltiazem HCl 30 mg 05/28/25 00:00 05/28/25 11:37 Diltiazem Hcl 30 Mg Tablet PO 30 mg Q6HR BERNARDA Administration Empagliflozin 10 mg 05/29/25 09:00 05/30/25 10:12 Empagliflozin 10 Mg Tablet PO 10 mg DAILY BERNARDA Administration Fish Oil 1 gm 05/28/25 09:00 05/30/25 10:11 Amelia 3 Polyunsat Fatty Acids 1 Gm Cap PO 1 gm DAILY BERNARDA Administration Furosemide 20 mg 05/29/25 09:00 05/30/25 10:12 Furosemide 20 Mg Tablet PO 20 mg DAILY BERNARDA Administration Guaifenesin 600 mg 05/30/25 21:00 Guaifenesin 12 Hr 600 Mg Tabcr PO Q12HR [facility] Heparin Sodium (Porcine) 4,000 units 05/27/25 23:04 05/28/25 18:30 Heparin Sodium 5,000 Units/Ml Vial IV PUSH 4,000 units PRN PRN Administration aPTT less than 55 seconds Heparin Sodium (Porcine) 3,000 units 05/27/25 23:04 05/29/25 10:38 Heparin Sodium 5,000 Units/Ml Vial IV PUSH 3,000 units PRN PRN Administration aPTT 55 - 70 seconds Heparin Sodium/Dextrose 25,000 units in 250 mls @ 13 mls/hr 05/27/25 23:05 05/30/25 06:19 Heparin Sodium/D5w 100 Units/Ml IV CONT 1,300 units/hr .[id number] BERNARDA 13 mls/hr Titration Protocol 1,300 UNITS/HR Piperacillin/Tazobactam/Dextrose 3.375 gm in 50 mls @ 100 mls/hr 05/28/25 15:00 05/30/25 10:42 Zosyn 3.375 Gm/Ns 50 Ml IVPB Infused Q6H BERNARDA Infusion Lactobacillus Acidophilus 1 tablet 05/28/25 09:00 05/30/25 10:11 Acidophilus/Bulgaricus Chewable Tablet BY MOUTH 1 tablet DAILY BERNARDA Administration Melatonin 3 mg 05/29/25 22:03 05/30/25 00:18 Melatonin 3 Mg Tablet PO 3 mg HS PRN Administration Insomnia Metoprolol Succinate 100 mg 05/28/25 21:00 05/29/25 20:23 Metoprolol Succinate Ext Rel 100 Mg Tabcr PO 100 mg QHS BERNARDA Administration Multivitamins Therapeutic 1 tablet 05/28/25 09:00 05/30/25 10:12 Multivitamins Therapeutic Tab (*Bkc) PO 1 tablet DAILY BERNARDA Administration Ondansetron HCl 4 mg 05/27/25 23:08 Ondansetron Inj 4 Mg/2 Ml Vial IV PUSH Q4H PRN Nausea Tamsulosin HCl 0.4 mg 05/28/25 21:00 05/29/25 20:23 Tamsulosin Hcl 0.4 Mg Capsule PO 0.4 mg QHS BERNARDA Administration Umeclidinium [place] 1 puff 05/28/25 08:00 05/30/25 07:44 Umeclidinium [place] 62.5 Mcg Ellipta INHALATION 1 puff DAILYRT BERNARDA Administration Radiology Results: ITS Impressions Chest X-Ray 05/27/25 22:43 IMPRESSION: Trace bilateral pleural effusions with adjacent compressive atelectasis. Chest/Abdomen/Pelvis CTA 05/27/25 22:44 IMPRESSION: No pulmonary embolus. No aortic dissection. Small bilateral pleural effusions with adjacent compressive atelectasis. Gallbladder distention with mural thickening and trace surrounding inflammatory change, which may be related to vascular congestion and fluid overload rather than inflammatory gallbladder disease, for which clinical (and serologic) correlation is needed. Internal Auditory Canal CT 05/28/25 08:21 IMPRESSION: No definite abnormality seen in both temporal bones. Renal Ultrasound 05/28/25 21:32 IMPRESSION: No hydronephrosis or renal calculi. No findings to suggest medical renal disease. Simple cyst within the interpolar region of the right kidney, for which no further follow-up is needed. Abdomen Ultrasound 05/29/25 12:51 IMPRESSION: 1. Cholelithiasis and prominent edematous-appearing gallbladder wall thickening but with negative sonographic Snowden's sign which is equivocal for acute cholecystitis. No significant surrounding infiltration and was evident on the prior CT and the gallbladder wall thickening could potentially also be secondary to heart failure, liver disease, renal failure or other generalized edema forming states. Could consider HIDA scan for further evaluation as clinically indicated. Labs Labs: Laboratory Results - last 24 hr 05/29/25 05/29/25 05/30/25 17:02 23:13 04:52 WBC 12.1 H RBC 4.20 L Hgb 13.1 L Hct 39.3 L MCV 93.6 MCH 31.2 MCHC 33.3 RDW 15.2 H Plt Count 138 L MPV 12.2 H Immature Gran % (Auto) 0.5 Neut % (Auto) 62.5 Lymph % (Auto) 26.0 [place] % (Auto) 7.5 Eos % (Auto) 3.3 Baso % (Auto) 0.2 Lymph # (Auto) 3.14 [place] # (Auto) 0.9 H Eos # (Auto) 0.4 H Baso # (Auto) 0.0 Abs Immat Gran (auto) 0.06 H Absolute Neuts (auto) 7.5 H Absolute Nucleated RBC 0.000 Nucleated RBC % 0.0 APTT 90.1 H 74.8 H 92.9 H Sodium 132 L Potassium 3.9 Chloride 100 Carbon Dioxide 24 Anion Gap 8 BUN 49 H Creatinine 1.62 H Estim Creat Clear Calc 33 Estimated GFR 41 L Glucose 111 H Calcium 8.3 L Magnesium 1.8 Total Bilirubin 1.2 AST 57 ALT 42 Alkaline Phosphatase 58 Total Protein 6.2 L Albumin 3.0 L
[2025-05-30] MEDS: HEPARIN SOD/D5W 100 UNITS/ML 25,000 UNITS/250 ML BAG 13 UNITS IV CONT (17:28)
[2025-05-30] MEDS: TAMSULOSIN HCL 0.4 MG CAPSULE PO (20:58)
[2025-05-30] MEDS: guaiFENesin 12 HR 600 MG TABCR PO (20:58)
[2025-05-30] MEDS: METOPROLOL SUCCINATE EXT REL 100 MG TABCR PO (20:58)
[2025-05-30] MEDS: IPRATROPIUM 0.5 MG/ALBUTEROL SULFATE 2.5 MG AMPUL.NEB 3 ML INHALATION (20:59)
[2025-05-31] VITALS (29 sets, daily range): BP systolic 98–124; BP diastolic 68–81; PULSE 77–109; RESP 16–22; TEMP 36.3–37.2; O2SAT 96–99
[2025-05-31] MEDS: IPRATROPIUM 0.5 MG/ALBUTEROL SULFATE 2.5 MG AMPUL.NEB 3 ML INHALATION ×4 (02:13→20:27)
[2025-05-31] MEDS: PIPERACILLN/TAZ 3.375GM/NS50ML 3.375 GM/50 ML BAG IVPB ×4 (02:41→21:02)
[2025-05-31 04:15] LABS: Hematocrit 39.5 % (42.0-52.0); Hemoglobin 13.0 g/dL (14.0-18.0); Immature Granulocyte Percent A 0.5 % (0-0.5); Lymphocytes Absolute Auto 3.56 K/mm3 (0.9-3.2); Mean Corpuscular HGB Conc 32.9 g/dl (32-36); Mean Corpuscular Hemoglobin 31.2 pg (26-34); Mean Corpuscular Volume 94.7 fl (80-100); Nucleated Red Blood Cells Absolute Auto 0.000 K/mm3 (0.0-0.012); Nucleated Red Blood Cells Perc 0.0 % (0.0-0.2); Platelet Count Result 134 k/mm3 (150-375); Red Blood Count 4.17 M/mm3 (4.6-6.20); White Blood Count 10.6 K/mm3 (4.5-10.0)
[2025-05-31 04:27] LABS: Partial Thromboplastin Time 69.8 Seconds (22.3-36.8)
[2025-05-31 04:33] LABS: Alanine Aminotransferase 34 U/L (6-50); Albumin Level 3.0 g/dL (3.5-5.1); Alkaline Phosphatase 54 U/L (38-126); Anion Gap 8 mmol/L (4-12); Aspartate Amino Transferase 38 U/L (17-59); Bilirubin,Total 1.1 mg/dL (0.2-1.3); Blood Urea Nitrogen 41 mg/dL (9-20); Calcium 8.0 mg/dL (8.4-10.2); Carbon Dioxide 22 mmol/L (22-30); Chloride 101 mmol/L (98-107); Estimated CRCL calculation 36 ml/min; Estimated Glomerular Filt Rate 46; Glucose 113 mg/dL (65-110); Magnesium 1.9 mg/dL (1.6-2.3); Potassium 3.8 mmol/L (3.4-5.0); Sodium 131 mmol/L (137-145); Total Protein 6.1 g/dL (6.3-8.2)
--- NOTE | 2025-05-31 05:11 | PC.NURSE ---
Pt's PTT 69.8. Discussed with MARILIN Giles. No adjustments to be made to heparin gtt at this time as therapeutic PTT is 71 and pt is scheduled for a left heart cath today.
--- NOTE | 2025-05-31 06:43 | P.CDI_ITS ---
CDI Query Clarification Request BMI: 25.7 Nutritional Diagnostic Statement: Please refer to the comprehensive nutrition assessment for further information. If you agree with diagnosis of Moderate protein calorie malnutrition related to chronic illness as evidenced by weight loss 5%/<1 month; moderate muscle wasting and fat loss. Please specify severity if known: * Mild * Moderate * Severe * Other/Unknown <Sherry Key RN - Last Filed: 05/31/25 06:44> Provider Comments Moderate protein calorie malnutrition <Javier Serrano MD - Last Filed: 06/01/25 17:13>
--- NOTE | 2025-05-31 07:51 | P.PNCA_ITS ---
Progress Note: A&P Assessment and Plan (1) Atrial fibrillation with rapid ventricular response: Code(s): I48.91 - Unspecified atrial fibrillation Status: Acute Assessment and Plan: In atrial fibrillation with HR controlled today. [id number] 4. Was on Eliquis in hospital but he did not continue it upon discharge recently. On Metoprolol, and Digoxin and Amiodarone. Diltiazem was restarted as he was not taking it at home when it ran out a few days ago. Monitor HR. On Amiodarone since 05/28/25 to improve HR or cardiovert. Check EKG. Stopped Cardizem since HR is controlled and to avoid negative inotropic me dication without HF benefit. (2) Elevated troponin: Code(s): R79.89 - Other specified abnormal findings of blood chemistry Status: Acute Assessment and Plan: Moderately elevated 5.6 and trending down. Possible due to tachycardia mediated cardiomyopathy, Takotsubo cardiomyopathy or ACS in that order, or from Noncardiac such as pneumonia. On heparin drip. (3) Essential (primary) hypertension: Code(s): I10 - Essential (primary) hypertension Status: Acute Assessment and Plan: Stable. (4) Systolic heart failure: Code(s): I50.20 - Unspecified systolic (congestive) heart failure Status: Acute Assessment and Plan: Acute. Possible due to tachycardia mediated cardiomyopathy, Takotsubo cardiomyopathy or ACS in that order. 05/28/25 Limited echo: EF 15-20%, severe LVE, only small basal segments have normal contractility s/o Takotsubo cardiomyopathy, diastolic function not assessed. Rate is controlled today. Started Jardiance 10 mg daily. Hold off on Entresto due to low normal BP and kidney impairment. Ordered life vest to prevent sudden cardiac arrest though patient still wants to think about it. Plan for [facility] today r/o ACS. Continue aspirin. Continue heparin drip for possible ACS and for atrial fib anticoagulation. Consult [facility] for it. Subjective Date/time seen: 05/31/25 07:51 Interval history: Denies chest pain. States breathing is improving. Has some cough with sputum. Exam Const: General: cooperative, healthy appearing and comfortable Orientation/consciousness: oriented to person, oriented to place and oriented to time Resp: Auscultation: clear to auscultation bilaterally, no crackles, no rales, no rhonchi and no wheezes Cardio: Rate: regular rate Rhythm: abnormal rhythm Heart sounds: no murmurs Peripheral pulses: dorsalis pedis present Neuro: General: oriented to person, oriented to place and oriented to time Extrem: Right lower extremity: no edema Left lower extremity: no edema Objective Data Vital Signs Vital Signs: Vital Signs - 24 hr 05/30/25 08:00 05/30/25 08:00 05/30/25 10:00 Temperature Pulse Rate 96 91 Respiratory Rate Blood Pressure Pulse Oximetry 95 Oxygen Delivery Nasal Cannula Oxygen Flow Rate 2 05/30/25 10:11 05/30/25 10:12 05/30/25 10:33 Temperature Pulse Rate 88 88 88 Respiratory Rate 20 Blood Pressure Pulse Oximetry Oxygen Delivery Oxygen Flow Rate 05/30/25 12:00 05/30/25 12:00 05/30/25 12:00 Temperature 97.5 F L Pulse Rate 112 H 105 H Respiratory Rate 18 Blood Pressure 112/79 Pulse Oximetry 93 96 Oxygen Delivery Room Air Oxygen Flow Rate 05/30/25 14:00 05/30/25 16:00 05/30/25 16:00 Temperature 98 F Pulse Rate 96 106 H 95 Respiratory Rate 18 Blood Pressure 110/67 Pulse Oximetry 96 Oxygen Delivery Oxygen Flow Rate 05/30/25 16:00 05/30/25 18:00 05/30/25 20:00 Temperature Pulse Rate 97 Respiratory Rate Blood Pressure Pulse Oximetry 96 94 Oxygen Delivery Room Air Nasal Cannula Oxygen Flow Rate 2 05/30/25 20:00 05/30/25 20:25 05/30/25 20:30 Temperature 98.1 F Pulse Rate 120 H 116 H 77 Respiratory Rate 23 H 16 Blood Pressure 106/62 Pulse Oximetry 95 Oxygen Delivery Oxygen Flow Rate 05/30/25 20:40 05/30/25 20:52 05/30/25 20:58 Temperature Pulse Rate 77 132 H Respiratory Rate 16 Blood Pressure Pulse Oximetry 94 Oxygen Delivery Nasal Cannula Oxygen Flow Rate 2 05/30/25 20:59 05/30/25 22:00 05/30/25 23:32 Temperature 98.3 F Pulse Rate 132 H 95 93 Respiratory Rate 22 H Blood Pressure 103/73 Pulse Oximetry 98 Oxygen Delivery Oxygen Flow Rate 05/31/25 00:00 05/31/25 00:00 05/31/25 02:00 Temperature Pulse Rate 93 86 Respiratory Rate Blood Pressure Pulse Oximetry 98 Oxygen Delivery Nasal Cannula Oxygen Flow Rate 2 05/31/25 02:13 05/31/25 02:24 05/31/25 04:00 Temperature Pulse Rate 77 77 Respiratory Rate 16 16 Blood Pressure Pulse Oximetry 96 Oxygen Delivery Nasal Cannula Oxygen Flow Rate 2 05/31/25 04:00 05/31/25 04:34 05/31/25 06:00 Temperature 97.7 F Pulse Rate 94 83 90 Respiratory Rate 22 H Blood Pressure 107/68 Pulse Oximetry 96 Oxygen Delivery Oxygen Flow Rate Intake/Output Intake/Output: Intake & Output 05/28/25 05/29/25 05/30/25 05/31/25 23:59 23:59 23:59 23:59 Intake Total 1308.3 1345.5 1582.1 419.6 Output Total 1075 650 700 300 Balance 233.3 695.5 882.1 119.6 Meds/Results Medications: Active Medications Generic Name Dose Route Start Last Admin Trade Name Freq PRN Reason Stop Dose Admin Acetaminophen 650 mg 05/27/25 23:08 05/29/25 10:37 Acetaminophen 325 Mg Tablet PO 650 mg Q4H PRN Administration Mild Pain (1-3) or Fever Hydrocodone Bitart/Acetaminophen 1 tab 05/28/25 03:53 Hydrocodone/Acetaminophen (*Crx) 7.5-325 Mg Tablet PO Q6H PRN pain 4-10 Albuterol 2 puff 05/28/25 22:11 05/30/25 10:28 Albuterol Sulfate (*Sp) Aerosol 1 Puff INHALATION 2 puff Q6H PRN Administration shortness of breath or wheezing Albuterol/Ipratropium 3 ml 05/30/25 20:00 05/31/25 02:13 Ipratropium 0.5 Mg/Albuterol Sulfate 2.5 Mg Ampul.Neb 3 Ml INHALATION 3 ml Q6HRT BERNARDA Administration Amiodarone HCl 200 mg 05/28/25 21:00 05/30/25 20:59 Amiodarone Hcl 200 Mg Tablet PO 200 mg Q12HR BERNARDA Administration Aspirin 81 mg 05/28/25 09:00 05/30/25 10:11 Aspirin 81 Mg Enteric Tablet PO 81 mg QAM BERNARDA Administration Calcium Carbonate 400 mg 05/28/25 03:52 Calcium Carbonate (Tums) 500 Mg (200 Mg Elemental) PO Q6H PRN Indigestion Cyanocobalamin 500 mcg 05/28/25 09:00 05/30/25 10:12 Cyanocobalamin 500 Mcg Tablet PO 500 mcg DAILY BERNARDA Administration Digoxin 125 mcg 05/28/25 09:00 05/30/25 10:11 Digoxin Tab 125 Mcg Tablet PO 125 mcg QAM BERNARDA Administration Empagliflozin 10 mg 05/29/25 09:00 05/30/25 10:12 Empagliflozin 10 Mg Tablet PO 10 mg DAILY BERNARDA Administration Fish Oil 1 gm 05/28/25 09:00 05/30/25 10:11 [place] 3 Polyunsat Fatty Acids 1 Gm Cap PO 1 gm DAILY BERNARDA Administration Furosemide 20 mg 05/29/25 09:00 05/30/25 10:12 Furosemide 20 Mg Tablet PO 20 mg DAILY BERNARDA Administration Guaifenesin 600 mg 05/30/25 21:00 05/30/25 20:58 Guaifenesin 12 Hr 600 Mg Tabcr PO 600 mg Q12HR BERNARDA Administration Heparin Sodium (Porcine) 4,000 units 05/27/25 23:04 05/28/25 18:30 Heparin Sodium 5,000 Units/Ml Vial IV PUSH 4,000 units PRN PRN Administration aPTT less than 55 seconds Heparin Sodium (Porcine) 3,000 units 05/27/25 23:04 05/29/25 10:38 Heparin Sodium 5,000 Units/Ml Vial IV PUSH 3,000 units PRN PRN Administration aPTT 55 - 70 seconds Heparin Sodium/Dextrose 25,000 units in 250 mls @ 13 mls/hr 05/27/25 23:05 05/31/25 05:12 Heparin Sodium/D5w 100 Units/Ml IV CONT 1,300 units/hr .[id number] BERNARDA 13 mls/hr Titration Protocol 1,300 UNITS/HR Piperacillin/Tazobactam/Dextrose 3.375 gm in 50 mls @ 100 mls/hr 05/28/25 15:00 05/31/25 03:06 Zosyn 3.375 Gm/Ns 50 Ml IVPB Infused Q6H BERNARDA Infusion Lactobacillus Acidophilus 1 tablet 05/28/25 09:00 05/30/25 10:11 Acidophilus/Bulgaricus Chewable Tablet BY MOUTH 1 tablet DAILY BERNARDA Administration Melatonin 3 mg 05/29/25 22:03 05/30/25 00:18 Melatonin 3 Mg Tablet PO 3 mg HS PRN Administration Insomnia Metoprolol Succinate 100 mg 05/28/25 21:00 05/30/25 20:58 Metoprolol Succinate Ext Rel 100 Mg Tabcr PO 100 mg QHS BERNARDA Administration Multivitamins Therapeutic 1 tablet 05/28/25 09:00 05/30/25 10:12 Multivitamins Therapeutic Tab (*Bkc) PO 1 tablet DAILY BERNARDA Administration Ondansetron HCl 4 mg 05/27/25 23:08 Ondansetron Inj 4 Mg/2 Ml Vial IV PUSH Q4H PRN Nausea Tamsulosin HCl 0.4 mg 05/28/25 21:00 05/30/25 20:58 Tamsulosin Hcl 0.4 Mg Capsule PO 0.4 mg QHS BERNARDA Administration Umeclidinium [place] 1 puff 05/28/25 08:00 05/30/25 07:44 Umeclidinium [place] 62.5 Mcg Ellipta INHALATION 1 puff DAILYRT BERNARDA Administration Radiology Results: ITS Impressions Chest X-Ray 05/27/25 22:43 IMPRESSION: Trace bilateral pleural effusions with adjacent compressive atelectasis. Chest/Abdomen/Pelvis CTA 05/27/25 22:44 IMPRESSION: No pulmonary embolus. No aortic dissection. Small bilateral pleural effusions with adjacent compressive atelectasis. Gallbladder distention with mural thickening and trace surrounding inflammatory change, which may be related to vascular congestion and fluid overload rather than inflammatory gallbladder disease, for which clinical (and serologic) correlation is needed. Internal Auditory Canal CT 05/28/25 08:21 IMPRESSION: No definite abnormality seen in both temporal bones. Renal Ultrasound 05/28/25 21:32 IMPRESSION: No hydronephrosis or renal calculi. No findings to suggest medical renal disease. Simple cyst within the interpolar region of the right kidney, for which no further follow-up is needed. Abdomen Ultrasound 05/29/25 12:51 IMPRESSION: 1. Cholelithiasis and prominent edematous-appearing gallbladder wall thickening but with negative sonographic Snowden's sign which is equivocal for acute cholecystitis. No significant surrounding infiltration and was evident on the prior CT and the gallbladder wall thickening could potentially also be secondary to heart failure, liver disease, renal failure or other generalized edema forming states. Could consider HIDA scan for further evaluation as clinically indicated. Labs Labs: Laboratory Results - last 24 hr 05/31/25 03:58 WBC 10.6 H RBC 4.17 L Hgb 13.0 L Hct 39.5 L MCV 94.7 MCH 31.2 MCHC 32.9 RDW 15.5 H Plt Count 134 L MPV 12.4 H Immature Gran % (Auto) 0.5 Neut % (Auto) 51.3 Lymph % (Auto) 33.6 [place] % (Auto) 9.8 H Eos % (Auto) 4.4 Baso % (Auto) 0.4 Lymph # (Auto) 3.56 H [place] # (Auto) 1.0 H Eos # (Auto) 0.5 H Baso # (Auto) 0.0 Abs Immat Gran (auto) 0.05 H Absolute Neuts (auto) 5.4 Absolute Nucleated RBC 0.000 Nucleated RBC % 0.0 APTT 69.8 H Sodium 131 L Potassium 3.8 Chloride 101 Carbon Dioxide 22 Anion Gap 8 BUN 41 H Creatinine 1.49 H Estim Creat Clear Calc 36 Estimated GFR 46 L Glucose 113 H Calcium 8.0 L Magnesium 1.9 Total Bilirubin 1.1 AST 38 ALT 34 Alkaline Phosphatase 54 Total Protein 6.1 L Albumin 3.0 L
[2025-05-31] MEDS: ACIDOPHILUS/BULGARICUS CHEWABLE TABLET 1 TABLET BY MOUTH (09:12)
[2025-05-31] MEDS: OMEGA 3 POLYUNSAT FATTY ACIDS 1 GM CAP PO (09:12)
[2025-05-31] MEDS: MULTIVITAMINS THERAPEUTIC TAB (*BKC) 1 TABLET PO (09:12)
[2025-05-31] MEDS: FUROSEMIDE 20 MG TABLET PO (09:12)
[2025-05-31] MEDS: EMPAGLIFLOZIN 10 MG TABLET PO (09:12)
[2025-05-31] MEDS: AMIODARONE HCL 200 MG TABLET PO ×2 (09:12→20:53)
[2025-05-31] MEDS: guaiFENesin 12 HR 600 MG TABCR PO ×2 (09:12→20:53)
[2025-05-31] MEDS: CYANOCOBALAMIN 500 MCG TABLET PO (09:12)
[2025-05-31] MEDS: DIGOXIN TAB 125 MCG TABLET PO (09:12)
[2025-05-31] MEDS: ASPIRIN 81 MG ENTERIC TABLET PO (09:13)
--- NOTE | 2025-05-31 09:54 | P.PNIM_ITS ---
Progress Note: A&P Assessment and Plan (1) Non-ST elevation myocardial infarction (NSTEMI): Code(s): I21.4 - Non-ST elevation (NSTEMI) myocardial infarction Status: Acute (2) Atrial fibrillation with rapid ventricular response: Code(s): I48.91 - Unspecified atrial fibrillation Status: Acute (3) Acute kidney injury: Code(s): N17.9 - Acute kidney failure, unspecified Status: Acute (4) Elevated liver enzymes: Code(s): R74.8 - Abnormal levels of other serum enzymes Status: Acute (5) Heart failure with preserved ejection fraction: Code(s): I50.30 - Unspecified diastolic (congestive) heart failure Status: Acute Plan This is a 79-year-old male with history of atrial fibrillation, hypertension, hepatitis-C, chronic kidney disease stage 3, chronic obstructive pulmonary disease, prediabetes, obstructive sleep apnea, benign prostatic hyperplasia, and cerebral aneurysm status post coil who presented to the emergency department via private vehicle from home with several complaints. He was admitted to the hospital earlier this month with pneumonia and ?I think its back again? although he has difficulties elaborating. He says that he is short of breath but has been so for a year or more. He has an occasional cough which is occasionally productive although he cannot describe his sputum quality or quantity. He does report that his appetite has not been great since his hospitalization. He is having difficulties starting his urine stream and he also mentions that he has been out of his tamsulosin for a bit. Additionally he complains of fullness in his ears, on losses though he is underwater, which has been occurring off and on for quite some time. After extensive questioning, it sounds as though overall he is just not feeling well with generalized malaise and weakness. He cannot really pinpoint any one specific symptom. He denies fever, chills, sweats, sinus congestion, sore throat, dysphagia, concerns for aspiration, chest pain, pleuritic pain, palpitations, abdominal pain, nausea, vomiting, diarrhea, dysuria, lower extremity edema, and calf pain. In the ED: Vital signs on arrival include a temperature of 97.6?, blood pressure 113/67, pulse 53, respiratory rate 16, SpO2 96% on room air. Labs were significant for a WBC count of 18.0, D-dimer 0.99, sodium 134, BUN 44, creatinine 1.85, glucose 123, total bilirubin 1.6, AST 73, ALT 53, alkaline phosphatase 67, troponin 5.340, proBNP greater than 30,000. EKG showed T-wave inversions concerning for ischemia in the inferior lateral leads. CTA of the chest, abdomen, and pelvis was negative for pulmonary embolism and aortic dissection. Small bilateral pleural effusions with adjacent compressive atelectasis was noted as well as gallbladder distension with mural thickening and trace surrounding inflammatory change which may be related to vascular congestion and fluid overload. A few hours after presentation, he went into rapid atrial fibrillation with rates into the 120s to 140s. He has been rate controlled since receiving an IV diltiazem bolus. During his most recent hospitalization, there were difficulties controlling his rate and diltiazem was increased to 360 mg daily. He has been out of this medication for several days however. Additionally, he seems to be confused about whether not he is supposed to be taking apixaban and he states that he has not been taking it for unclear reasons. He was started on a heparin drip for non STEMI and is being admitted to the IMU in this setting for close monitoring and Cardiology consultation. Atrial fibrillation with rapid ventricular rate out of diltiazem at home. Resumed 360 mg of diltiazem. Switched to amiodarone oral per Cardiology. Diltiazem has been stopped. Non-STEMI with elevated troponin and EKG changes. Serial troponin 5.34-5.6 6- 5.5. Possible acute coronary syndrome or due to CHF or AFib with RVR.. CTA with no PE no aortic dissection. Small bilateral pleural effusion with adjacent compressive atelectasis. Gallbladder distention mural thickening and trace surrounding inflammatory change which may be related to vascular congestion and fluid overload rather than inflammatory gallbladder disease. Chest x-ray with trace bilateral pleural effusion with adjacent compressive atelectasis. Echo with EF 15-20% suggestive of Takotsubo cardiomyopathy. Plan for left heart catheterization today Pneumonia elevated leukocytosis chest x-ray with small bilateral pleural effusion with adjacent compressive atelectasis. Added Zosyn. Added Mucinex Respiratory pathogen panel pending. Procalcitonin 0.6. No obvious pneumonia on CTA. He did receive a dose of Lasix. Currently on oral Lasix daily WILLIAM and CKD stage 3 baseline creatinine 1.2 admission creatinine 1.8. Creatinine improving no catheterization due to WILLIAM noted. BPH on Flomax Elevated liver enzymes right upper quadrant ultrasound ordered. CT evidence of gallbladder distention with mural thickening and trace surrounding inflammatory change which may be related to vascular congestion and fluid overload received a dose of Lasix. Abdominal ultrasound with prominent edematous appearing gallbladder wall thickening with cholelithiasis. History of hepatitis-C COPD not in exacerbation Prediabetes Obstructive sleep apnea Cerebral aneurysm status post coiling. DVT prophylaxis on heparin drip. Eliquis on hold Subjective Date/time seen: 05/31/25 09:54 Interval history: No overnight events. Feels little better. Still has cough. Shortness of breath has improved. No leg swelling. No chest pain. Review of Systems Review of Systems: All systems reviewed & are unremarkable except as noted in HPI and below Exam Narrative: General: Chronically ill-appearing elderly male in the semi-Ng position no acute distress. HEENT: PERRL, EOMI. Sclera anicteric. Oral mucosa moist. Neck: Supple. No JVD. No stridor. Respiratory: Respirations are nonlabored he speaking in full sentences. Lung sounds diminished with no added sounds Cardiovascular: Irregularly irregular rate and rhythm. Rate controlled Gastrointestinal: Abdomen is soft, nontender, and nondistended with positive bowel sounds. Skin: Warm and dry. No rash or lesions on limited exam. Extremities: No cyanosis or clubbing. Trace tello ankle edema bilaterally. Neurological: Alert. Cranial nerves grossly intact. No gross focal deficits to casual conversation. Psychiatric: Pleasant and cooperative with appropriate mood and affect. Objective Data Vital Signs Vital Signs: Vital Signs - 24 hr 05/30/25 10:00 05/30/25 10:11 05/30/25 10:12 Temperature Pulse Rate 91 88 88 Respiratory Rate Blood Pressure Pulse Oximetry Oxygen Delivery Oxygen Flow Rate 05/30/25 10:33 05/30/25 12:00 05/30/25 12:00 Temperature 97.5 F L Pulse Rate 88 112 H 105 H Respiratory Rate 20 18 Blood Pressure 112/79 Pulse Oximetry 93 Oxygen Delivery Oxygen Flow Rate 05/30/25 12:00 05/30/25 14:00 05/30/25 16:00 Temperature 98 F Pulse Rate 96 106 H Respiratory Rate 18 Blood Pressure 110/67 Pulse Oximetry 96 96 Oxygen Delivery Room Air Oxygen Flow Rate 05/30/25 16:00 05/30/25 16:00 05/30/25 18:00 Temperature Pulse Rate 95 97 Respiratory Rate Blood Pressure Pulse Oximetry 96 Oxygen Delivery Room Air Oxygen Flow Rate 05/30/25 20:00 05/30/25 20:00 05/30/25 20:25 Temperature 98.1 F Pulse Rate 120 H 116 H Respiratory Rate 23 H Blood Pressure 106/62 Pulse Oximetry 94 95 Oxygen Delivery Nasal Cannula Oxygen Flow Rate 2 05/30/25 20:30 05/30/25 20:40 05/30/25 20:52 Temperature Pulse Rate 77 77 Respiratory Rate 16 16 Blood Pressure Pulse Oximetry 94 Oxygen Delivery Nasal Cannula Oxygen Flow Rate 2 05/30/25 20:58 05/30/25 20:59 05/30/25 22:00 Temperature Pulse Rate 132 H 132 H 95 Respiratory Rate Blood Pressure Pulse Oximetry Oxygen Delivery Oxygen Flow Rate 05/30/25 23:32 05/31/25 00:00 05/31/25 00:00 Temperature 98.3 F Pulse Rate 93 93 Respiratory Rate 22 H Blood Pressure 103/73 Pulse Oximetry 98 98 Oxygen Delivery Nasal Cannula Oxygen Flow Rate 2 05/31/25 02:00 05/31/25 02:13 05/31/25 02:24 Temperature Pulse Rate 86 77 77 Respiratory Rate 16 16 Blood Pressure Pulse Oximetry Oxygen Delivery Oxygen Flow Rate 05/31/25 04:00 05/31/25 04:00 05/31/25 04:34 Temperature 97.7 F Pulse Rate 94 83 Respiratory Rate 22 H Blood Pressure 107/68 Pulse Oximetry 96 96 Oxygen Delivery Nasal Cannula Oxygen Flow Rate 2 05/31/25 06:00 05/31/25 07:54 05/31/25 08:21 Temperature 97.6 F Pulse Rate 90 83 Respiratory Rate 22 H Blood Pressure 115/81 Pulse Oximetry 97 96 Oxygen Delivery Nasal Cannula Oxygen Flow Rate 2 05/31/25 08:21 05/31/25 08:35 05/31/25 09:12 Temperature Pulse Rate 86 91 100 Respiratory Rate 18 16 Blood Pressure Pulse Oximetry Oxygen Delivery Oxygen Flow Rate 05/31/25 09:12 Temperature Pulse Rate 100 Respiratory Rate Blood Pressure Pulse Oximetry Oxygen Delivery Oxygen Flow Rate Intake/Output Intake/Output: Intake & Output 05/28/25 05/29/25 05/30/25 05/31/25 23:59 23:59 23:59 23:59 Intake Total 1308.3 1345.5 1582.1 419.6 Output Total 1075 650 700 825 Balance 233.3 695.5 882.1 -405.4 Meds/Results Medications: Active Medications Generic Name Dose Route Start Last Admin Trade Name Freq PRN Reason Stop Dose Admin Acetaminophen 650 mg 05/27/25 23:08 05/29/25 10:37 Acetaminophen 325 Mg Tablet PO 650 mg Q4H PRN Administration Mild Pain (1-3) or Fever Hydrocodone Bitart/Acetaminophen 1 tab 05/28/25 03:53 Hydrocodone/Acetaminophen (*Crx) 7.5-325 Mg Tablet PO Q6H PRN pain 4-10 Albuterol 2 puff 05/28/25 22:11 05/30/25 10:28 Albuterol Sulfate (*Sp) Aerosol 1 Puff INHALATION 2 puff Q6H PRN Administration shortness of breath or wheezing Albuterol/Ipratropium 3 ml 05/30/25 20:00 05/31/25 08:20 Ipratropium 0.5 Mg/Albuterol Sulfate 2.5 Mg Ampul.Neb 3 Ml INHALATION 3 ml Q6HRT BERNARDA Administration Amiodarone HCl 200 mg 05/28/25 21:00 05/31/25 09:12 Amiodarone Hcl 200 Mg Tablet PO 200 mg Q12HR BERNARDA Administration Aspirin 81 mg 05/28/25 09:00 05/31/25 09:13 Aspirin 81 Mg Enteric Tablet PO 81 mg QAM BERNARDA Administration Calcium Carbonate 400 mg 05/28/25 03:52 Calcium Carbonate (Tums) 500 Mg (200 Mg Elemental) PO Q6H PRN Indigestion Cyanocobalamin 500 mcg 05/28/25 09:00 05/31/25 09:12 Cyanocobalamin 500 Mcg Tablet PO 500 mcg DAILY BERNARDA Administration Digoxin 125 mcg 05/28/25 09:00 05/31/25 09:12 Digoxin Tab 125 Mcg Tablet PO 125 mcg QAM BERNARDA Administration Empagliflozin 10 mg 05/29/25 09:00 05/31/25 09:12 Empagliflozin 10 Mg Tablet PO 10 mg DAILY BERNARDA Administration Fish Oil 1 gm 05/28/25 09:00 05/31/25 09:12 [place] 3 Polyunsat Fatty Acids 1 Gm Cap PO 1 gm DAILY BERNARDA Administration Furosemide 20 mg 05/29/25 09:00 05/31/25 09:12 Furosemide 20 Mg Tablet PO 20 mg DAILY BERNARDA Administration Guaifenesin 600 mg 05/30/25 21:00 05/31/25 09:12 Guaifenesin 12 Hr 600 Mg Tabcr PO 600 mg Q12HR BERNARDA Administration Heparin Sodium (Porcine) 4,000 units 05/27/25 23:04 05/28/25 18:30 Heparin Sodium 5,000 Units/Ml Vial IV PUSH 4,000 units PRN PRN Administration aPTT less than 55 seconds Heparin Sodium (Porcine) 3,000 units 05/27/25 23:04 05/29/25 10:38 Heparin Sodium 5,000 Units/Ml Vial IV PUSH 3,000 units PRN PRN Administration aPTT 55 - 70 seconds Heparin Sodium/Dextrose 25,000 units in 250 mls @ 13 mls/hr 05/27/25 23:05 05/31/25 05:12 Heparin Sodium/D5w 100 Units/Ml IV CONT 1,300 units/hr .[id number] BERNRADA 13 mls/hr Titration Protocol 1,300 UNITS/HR Piperacillin/Tazobactam/Dextrose 3.375 gm in 50 mls @ 100 mls/hr 05/28/25 15:00 05/31/25 09:16 Zosyn 3.375 Gm/Ns 50 Ml IVPB 100 mls/hr Q6H BERNARDA Administration Lactobacillus Acidophilus 1 tablet 05/28/25 09:00 05/31/25 09:12 Acidophilus/Bulgar[place] Chewable Tablet BY MOUTH 1 tablet DAILY BERNARDA Administration Melatonin 3 mg 05/29/25 22:03 05/30/25 00:18 Melatonin 3 Mg Tablet PO 3 mg HS PRN Administration Insomnia Metoprolol Succinate 100 mg 05/28/25 21:00 05/30/25 20:58 Metoprolol Succinate Ext Rel 100 Mg Tabcr PO 100 mg QHS BERNARDA Administration Multivitamins Therapeutic 1 tablet 05/28/25 09:00 05/31/25 09:12 Multivitamins Therapeutic Tab (*Bkc) PO 1 tablet DAILY BERNARDA Administration Ondansetron HCl 4 mg 05/27/25 23:08 Ondansetron Inj 4 Mg/2 Ml Vial IV PUSH Q4H PRN Nausea Tamsulosin HCl 0.4 mg 05/28/25 21:00 05/30/25 20:58 Tamsulosin Hcl 0.4 Mg Capsule PO 0.4 mg QHS [facility] Administration Umeclidinium [place] 1 puff 05/28/25 08:00 05/31/25 08:40 Umeclidinium [place] 62.5 Mcg Ellipta INHALATION Not Given DAILYRT [facility] Radiology Results: ITS Impressions Chest X-Ray 05/27/25 22:43 IMPRESSION: Trace bilateral pleural effusions with adjacent compressive atelectasis. Chest/Abdomen/Pelvis CTA 05/27/25 22:44 IMPRESSION: No pulmonary embolus. No aortic dissection. Small bilateral pleural effusions with adjacent compressive atelectasis. Gallbladder distention with mural thickening and trace surrounding inflammatory change, which may be related to vascular congestion and fluid overload rather than inflammatory gallbladder disease, for which clinical (and serologic) correlation is needed. Internal Auditory Canal CT 05/28/25 08:21 IMPRESSION: No definite abnormality seen in both temporal bones. Renal Ultrasound 05/28/25 21:32 IMPRESSION: No hydronephrosis or renal calculi. No findings to suggest medical renal disease. Simple cyst within the interpolar region of the right kidney, for which no further follow-up is needed. Abdomen Ultrasound 05/29/25 12:51 IMPRESSION: 1. Cholelithiasis and prominent edematous-appearing gallbladder wall thickening but with negative sonographic Snowden's sign which is equivocal for acute cholecystitis. No significant surrounding infiltration and was evident on the prior CT and the gallbladder wall thickening could potentially also be secondary to heart failure, liver disease, renal failure or other generalized edema forming states. Could consider HIDA scan for further evaluation as clinically indicated. Labs Labs: Laboratory Results - last 24 hr 05/31/25 03:58 WBC 10.6 H RBC 4.17 L Hgb 13.0 L Hct 39.5 L MCV 94.7 MCH 31.2 MCHC 32.9 RDW 15.5 H Plt Count 134 L MPV 12.4 H Immature Gran % (Auto) 0.5 Neut % (Auto) 51.3 Lymph % (Auto) 33.6 [place] % (Auto) 9.8 H Eos % (Auto) 4.4 Baso % (Auto) 0.4 Lymph # (Auto) 3.56 H [place] # (Auto) 1.0 H Eos # (Auto) 0.5 H Baso # (Auto) 0.0 Abs Immat Gran (auto) 0.05 H Absolute Neuts (auto) 5.4 Absolute Nucleated RBC 0.000 Nucleated RBC % 0.0 APTT 69.8 H Sodium 131 L Potassium 3.8 Chloride 101 Carbon Dioxide 22 Anion Gap 8 BUN 41 H Creatinine 1.49 H Estim Creat Clear Calc 36 Estimated GFR 46 L Glucose 113 H Calcium 8.0 L Magnesium 1.9 Total Bilirubin 1.1 AST 38 ALT 34 Alkaline Phosphatase 54 Total Protein 6.1 L Albumin 3.0 L
[2025-05-31] MEDS: HEPARIN SOD/D5W 100 UNITS/ML 25,000 UNITS/250 ML BAG 13 UNITS IV CONT (15:02)
[2025-05-31] MEDS: METOPROLOL SUCCINATE EXT REL 100 MG TABCR PO (20:53)
[2025-05-31] MEDS: TAMSULOSIN HCL 0.4 MG CAPSULE PO (20:53)
[2025-05-31] MEDS: MELATONIN 3 MG TABLET PO (21:11)
[2025-06-01] VITALS (41 sets, daily range): BP systolic 108–147; BP diastolic 65–119; PULSE 71–109; RESP 14–26; TEMP 36.4–37.1; O2SAT 93–100
[2025-06-01] MEDS: IPRATROPIUM 0.5 MG/ALBUTEROL SULFATE 2.5 MG AMPUL.NEB 3 ML INHALATION ×3 (01:14→21:18)
[2025-06-01] MEDS: PIPERACILLN/TAZ 3.375GM/NS50ML 3.375 GM/50 ML BAG IVPB ×2 (03:11→10:02)
[2025-06-01 04:54] LABS: Hematocrit 39.2 % (42.0-52.0); Hemoglobin 12.7 g/dL (14.0-18.0); Immature Granulocyte Percent A 0.6 % (0-0.5); Lymphocytes Absolute Auto 3.34 K/mm3 (0.9-3.2); Mean Corpuscular HGB Conc 32.4 g/dl (32-36); Mean Corpuscular Hemoglobin 31.4 pg (26-34); Mean Corpuscular Volume 97.0 fl (80-100); Nucleated Red Blood Cells Absolute Auto 0.000 K/mm3 (0.0-0.012); Nucleated Red Blood Cells Perc 0.0 % (0.0-0.2); Platelet Count Result 141 k/mm3 (150-375); Red Blood Count 4.04 M/mm3 (4.6-6.20); White Blood Count 10.8 K/mm3 (4.5-10.0)
[2025-06-01 05:15] LABS: Alanine Aminotransferase 30 U/L (6-50); Albumin Level 3.0 g/dL (3.5-5.1); Alkaline Phosphatase 48 U/L (38-126); Anion Gap 9 mmol/L (4-12); Aspartate Amino Transferase 46 U/L (17-59); Bilirubin,Total 0.9 mg/dL (0.2-1.3); Blood Urea Nitrogen 35 mg/dL (9-20); Calcium 8.0 mg/dL (8.4-10.2); Carbon Dioxide 24 mmol/L (22-30); Chloride 100 mmol/L (98-107); Estimated CRCL calculation 35 ml/min; Estimated Glomerular Filt Rate 44; Glucose 107 mg/dL (65-110); Magnesium 2.1 mg/dL (1.6-2.3); Potassium 3.7 mmol/L (3.4-5.0); Sodium 133 mmol/L (137-145); Total Protein 6.1 g/dL (6.3-8.2)
[2025-06-01 07:26] LABS: Partial Thromboplastin Time 92.8 Seconds (22.3-36.8)
[2025-06-01] MEDS: UMECLIDINIUM BROMIDE 62.5 MCG ELLIPTA 1 PUFF INHALATION (07:56)
--- NOTE | 2025-06-01 08:09 | P.PNCA_ITS ---
Progress Note: A&P Assessment and Plan (1) Atrial fibrillation with rapid ventricular response: Code(s): I48.91 - Unspecified atrial fibrillation Status: Acute Assessment and Plan: In atrial fibrillation with HR controlled today. [id number] 4. Was on Eliquis in hospital but he did not continue it upon discharge recently. On Metoprolol, and Digoxin and Amiodarone. Diltiazem was restarted as he was not taking it at home when it ran out a few days ago. Monitor HR. On Amiodarone since 05/28/25 to improve HR or cardiovert. Check EKG. Stopped Cardizem since HR is controlled and to avoid negative inotropic me dication without HF benefit. (2) Elevated troponin: Code(s): R79.89 - Other specified abnormal findings of blood chemistry Status: Acute Assessment and Plan: Moderately elevated 5.6 and trending down. Possible due to tachycardia mediated cardiomyopathy, Takotsubo cardiomyopathy or ACS in that order, or from Noncardiac such as pneumonia. On heparin drip. After C may stop heparin drip. (3) Essential (primary) hypertension: Code(s): I10 - Essential (primary) hypertension Status: Acute Assessment and Plan: Stable. (4) Systolic heart failure: Code(s): I50.20 - Unspecified systolic (congestive) heart failure Status: Acute Assessment and Plan: Acute. Possible due to tachycardia mediated cardiomyopathy, Takotsubo cardiomyopathy or ACS in that order. 05/28/25 Limited echo: EF 15-20%, severe LVE, only small basal segments have normal contractility s/o Takotsubo cardiomyopathy, diastolic function not assessed. Rate is controlled today. Started Jardiance 10 mg daily. Hold off on Entresto due to low normal BP and kidney impairment. Ordered life vest to prevent sudden cardiac arrest though patient still wants to think about it. Plan for [facility] today r/o ACS. Continue aspirin. Continue heparin drip for possible ACS and for atrial fib anticoagulation. Consulted [facility] for it. Subjective Date/time seen: 06/01/25 08:09 Interval history: Denies chest pain. States breathing is improving. Has some cough with sputum. Exam Const: General: cooperative, healthy appearing and comfortable Orientatio n/consciousness: oriented to person, oriented to place and oriented to time Resp: Auscultation: clear to auscultation bilaterally, no crackles, no rales, no rhonchi and no wheezes Cardio: Rate: regular rate Rhythm: abnormal rhythm Heart sounds: no murmurs Peripheral pulses: dorsalis pedis present Neuro: General: oriented to person, oriented to place and oriented to time Extrem: Right lower extremity: no edema Left lower extremity: no edema Objective Data Vital Signs Vital Signs: Vital Signs - 24 hr 05/31/25 08:21 05/31/25 08:21 05/31/25 08:35 Temperature Pulse Rate 86 91 Respiratory Rate 18 16 Blood Pressure Pulse Oximetry 96 Oxygen Delivery Nasal Cannula Oxygen Flow Rate 2 05/31/25 09:12 05/31/25 09:12 05/31/25 10:00 Temperature Pulse Rate 100 100 89 Respiratory Rate Blood Pressure Pulse Oximetry Oxygen Delivery Oxygen Flow Rate 05/31/25 12:00 05/31/25 12:27 05/31/25 14:00 Temperature 97.7 F Pulse Rate 91 96 96 Respiratory Rate 20 Blood Pressure 124/77 Pulse Oximetry 98 Oxygen Delivery Oxygen Flow Rate 05/31/25 14:37 05/31/25 14:46 05/31/25 16:00 Temperature Pulse Rate 91 96 109 H Respiratory Rate 16 16 Blood Pressure Pulse Oximetry Oxygen Delivery Oxygen Flow Rate 05/31/25 16:26 05/31/25 18:00 05/31/25 20:00 Temperature 97.3 F L Pulse Rate 105 H 93 91 Respiratory Rate 18 Blood Pressure 120/75 Pulse Oximetry 96 Oxygen Delivery Oxygen Flow Rate 05/31/25 20:01 05/31/25 20:27 05/31/25 20:31 Temperature 98.1 F Pulse Rate 89 87 87 Respiratory Rate 20 18 Blood Pressure 122/75 Pulse Oximetry 99 97 Oxygen Delivery Nasal Cannula Oxygen Flow Rate 2 05/31/25 20:39 05/31/25 20:53 05/31/25 20:53 Temperature Pulse Rate 88 108 H 108 H Respiratory Rate 18 Blood Pressure Pulse Oximetry Oxygen Delivery Oxygen Flow Rate 05/31/25 22:00 05/31/25 23:33 06/01/25 00:00 Temperature 98.9 F Pulse Rate 88 92 85 Respiratory Rate 20 Blood Pressure 98/68 L Pulse Oximetry 98 Oxygen Delivery Oxygen Flow Rate 06/01/25 01:14 06/01/25 01:26 06/01/25 02:00 Temperature Pulse Rate 85 87 90 Respiratory Rate 18 18 Blood Pressure Pulse Oximetry Oxygen Delivery Oxygen Flow Rate 06/01/25 04:00 06/01/25 04:00 06/01/25 06:00 Temperature 97.6 F Pulse Rate 78 82 80 Respiratory Rate 18 Blood Pressure 117/75 Pulse Oximetry 99 Oxygen Delivery Oxygen Flow Rate 06/01/25 07:57 Temperature Pulse Rate 83 Respiratory Rate 14 Blood Pressure Pulse Oximetry 97 Oxygen Delivery Nasal Cannula Oxygen Flow Rate 2 Intake/Output Intake/Output: Intake & Output 05/29/25 05/30/25 05/31/25 06/01/25 23:59 23:59 23:59 23:59 Intake Total 1345.5 1582.1 1447.1 600 Output Total 363 309 8229 350 Balance 695.5 882.1 -677.9 250 Meds/Results Medications: Active Medications Generic Name Dose Route Start Last Admin Trade Name Freq PRN Reason Stop Dose Admin Acetaminophen 650 mg 05/27/25 23:08 05/29/25 10:37 Acetaminophen 325 Mg Tablet PO 650 mg Q4H PRN Administration Mild Pain (1-3) or Fever Hydrocodone Bitart/Acetaminophen 1 tab 05/28/25 03:53 Hydrocodone/Acetaminophen (*Crx) 7.5-325 Mg Tablet PO Q6H PRN pain 4-10 Albuterol 2 puff 05/28/25 22:11 05/30/25 10:28 Albuterol Sulfate (*Sp) Aerosol 1 Puff INHALATION 2 puff Q6H PRN Administration shortness of breath or wheezing Albuterol/Ipratropium 3 ml 05/30/25 20:00 06/01/25 07:56 Ipratropium 0.5 Mg/Albuterol Sulfate 2.5 Mg Ampul.Neb 3 Ml INHALATION 3 ml Q6HRT BERNARDA Administration Amiodarone HCl 200 mg 05/28/25 21:00 05/31/25 20:53 Amiodarone Hcl 200 Mg Tablet PO 200 mg Q12HR BERNARDA Administration Aspirin 81 mg 05/28/25 09:00 05/31/25 09:13 Aspirin 81 Mg Enteric Tablet PO 81 mg QAM BERNARDA Administration Calcium Carbonate 400 mg 05/28/25 03:52 Calcium Carbonate (Tums) 500 Mg (200 Mg Elemental) PO Q6H PRN Indigestion Cyanocobalamin 500 mcg 05/28/25 09:00 05/31/25 09:12 Cyanocobalamin 500 Mcg Tablet PO 500 mcg DAILY BERNARDA Administration Digoxin 125 mcg 05/28/25 09:00 05/31/25 09:12 Digoxin Tab 125 Mcg Tablet PO 125 mcg QAM BERNARDA Administration Empagliflozin 10 mg 05/29/25 09:00 05/31/25 09:12 Empagliflozin 10 Mg Tablet PO 10 mg DAILY BERNARDA Administration Fish Oil 1 gm 05/28/25 09:00 05/31/25 09:12 [place] 3 Polyunsat Fatty Acids 1 Gm Cap PO 1 gm DAILY BERNARDA Administration Furosemide 20 mg 05/29/25 09:00 05/31/25 09:12 Furosemide 20 Mg Tablet PO 20 mg DAILY BERNARDA Administration Guaifenesin 600 mg 05/30/25 21:00 05/31/25 20:53 Guaifenesin 12 Hr 600 Mg Tabcr PO 600 mg Q12HR BERNARDA Administration Heparin Sodium (Porcine) 4,000 units 05/27/25 23:04 05/28/25 18:30 Heparin Sodium 5,000 Units/Ml Vial IV PUSH 4,000 units PRN PRN Administration aPTT less than 55 seconds Heparin Sodium (Porcine) 3,000 units 05/27/25 23:04 05/29/25 10:38 Heparin Sodium 5,000 Units/Ml Vial IV PUSH 3,000 units PRN PRN Administration aPTT 55 - 70 seconds Heparin Sodium/Dextrose 25,000 units in 250 mls @ 13 mls/hr 05/27/25 23:05 06/01/25 05:00 Heparin Sodium/D5w 100 Units/Ml IV CONT Not Given .[id number] BERNARDA Protocol 1,300 UNITS/HR Piperacillin/Tazobactam/Dextrose 3.375 gm in 50 mls @ 100 mls/hr 05/28/25 15:00 06/01/25 03:45 Zosyn 3.375 Gm/Ns 50 Ml IVPB Infused Q6H BERNARDA Infusion Lactobacillus Acidophilus 1 tablet 05/28/25 09:00 05/31/25 09:12 Acidophilus/Bulgaricus Chewable Tablet BY MOUTH 1 tablet DAILY BERNARDA Administration Melatonin 3 mg 05/29/25 22:03 05/31/25 21:11 Melatonin 3 Mg Tablet PO 3 mg HS PRN Administration Insomnia Metoprolol Succinate 100 mg 05/28/25 21:00 05/31/25 20:53 Metoprolol Succinate Ext Rel 100 Mg Tabcr PO 100 mg QHS BERNARDA Administration Multivitamins Therapeutic 1 tablet 05/28/25 09:00 05/31/25 09:12 Multivitamins Therapeutic Tab (*Bkc) PO 1 tablet DAILY BERNARDA Administration Ondansetron HCl 4 mg 05/27/25 23:08 Ondansetron Inj 4 Mg/2 Ml Vial IV PUSH Q4H PRN Nausea Tamsulosin HCl 0.4 mg 05/28/25 21:00 05/31/25 20:53 Tamsulosin Hcl 0.4 Mg Capsule PO 0.4 mg QHS BERNARDA Administration Umeclidinium [place] 1 puff 05/28/25 08:00 06/01/25 07:56 Umeclidinium [place] 62.5 Mcg Ellipta INHALATION 1 puff DAILYRT BERNARDA Administration Radiology Results: ITS Impressions Chest X-Ray 05/27/25 22:43 IMPRESSION: Trace bilateral pleural effusions with adjacent compressive atelectasis. Chest/Abdomen/Pelvis CTA 05/27/25 22:44 IMPRESSION: No pulmonary embolus. No aortic dissection. Small bilateral pleural effusions with adjacent compressive atelectasis. Gallbladder distention with mural thickening and trace surrounding inflammatory change, which may be related to vascular congestion and fluid overload rather than inflammatory gallbladder disease, for which clinical (and serologic) correlation is needed. Internal Auditory Canal CT 05/28/25 08:21 IMPRESSION: No definite abnormality seen in both temporal bones. Renal Ultrasound 05/28/25 21:32 IMPRESSION: No hydronephrosis or renal calculi. No findings to suggest medical renal disease. Simple cyst within the interpolar region of the right kidney, for which no further follow-up is needed. Abdomen Ultrasound 05/29/25 12:51 IMPRESSION: 1. Cholelithiasis and prominent edematous-appearing gallbladder wall thickening but with negative sonographic Snowden's sign which is equivocal for acute cholecystitis. No significant surrounding infiltration and was evident on the prior CT and the gallbladder wall thickening could potentially also be secondary to heart failure, liver disease, renal failure or other generalized edema forming states. Could consider HIDA scan for further evaluation as clinically indicated. Labs Labs: Laboratory Results - last 24 hr 06/01/25 06/01/25 04:24 07:06 WBC 10.8 H RBC 4.04 L Hgb 12.7 L Hct 39.2 L MCV 97.0 MCH 31.4 MCHC 32.4 RDW 16.0 H Plt Count 141 L MPV 12.3 H Immature Gran % (Auto) 0.6 H Neut % (Auto) 49.0 Lymph % (Auto) 30.9 [place] % (Auto) 10.5 H Eos % (Auto) 8.6 H Baso % (Auto) 0.4 Lymph # (Auto) 3.34 H [place] # (Auto) 1.1 H Eos # (Auto) 0.9 H Baso # (Auto) 0.0 Abs Immat Gran (auto) 0.06 H Absolute Neuts (auto) 5.3 Absolute Nucleated RBC 0.000 Nucleated RBC % 0.0 APTT 92.8 H Sodium 133 L Potassium 3.7 Chloride 100 Carbon Dioxide 24 Anion Gap 9 BUN 35 H Creatinine 1.53 H Estim Creat Clear Calc 35 Estimated GFR 44 L Glucose 107 Calcium 8.0 L Magnesium 2.1 Total Bilirubin 0.9 AST 46 ALT 30 Alkaline Phosphatase 48 Total Protein 6.1 L Albumin 3.0 L
[2025-06-01] MEDS: HEPARIN SOD/D5W 100 UNITS/ML 25,000 UNITS/250 ML BAG 13 UNITS IV CONT (09:58)
[2025-06-01] MEDS: OMEGA 3 POLYUNSAT FATTY ACIDS 1 GM CAP PO (09:59)
[2025-06-01] MEDS: ASPIRIN 81 MG ENTERIC TABLET PO (09:59)
[2025-06-01] MEDS: AMIODARONE HCL 200 MG TABLET PO ×2 (09:59→21:11)
[2025-06-01] MEDS: MULTIVITAMINS THERAPEUTIC TAB (*BKC) 1 TABLET PO (10:00)
[2025-06-01] MEDS: ACIDOPHILUS/BULGARICUS CHEWABLE TABLET 1 TABLET BY MOUTH (10:00)
[2025-06-01] MEDS: FUROSEMIDE 20 MG TABLET PO (10:00)
[2025-06-01] MEDS: DIGOXIN TAB 125 MCG TABLET PO (10:01)
[2025-06-01] MEDS: guaiFENesin 12 HR 600 MG TABCR PO ×2 (10:01→21:11)
[2025-06-01] MEDS: EMPAGLIFLOZIN 10 MG TABLET PO (10:01)
[2025-06-01] MEDS: CYANOCOBALAMIN 500 MCG TABLET PO (10:01)
--- NOTE | 2025-06-01 10:17 | PCPTNOTE ---
Attempted PT evaluation, pt declined due to being tired. Pt going for procedure today. Nurse aware. Will follow.
--- NOTE | 2025-06-01 10:52 | P.CONCA_ITS ---
Assessment and Plan Assessment and plan (1) Essential (primary) hypertension: Code(s): I10 - Essential (primary) hypertension Status: Acute (2) Hypertension with heart disease: Code(s): I11.9 - Hypertensive heart disease without heart failure Status: Acute (3) Systolic heart failure: Code(s): I50.20 - Unspecified systolic (congestive) heart failure Status: Acute (4) Non-ST elevation OR (NSTEMI): Code(s): I21.4 - Non-ST elevation (NSTEMI) myocardial infarction Status: Acute Plan 1. NSTEMI 2. Acute systolic heart failure 3. Atrial fibrillation 4. Acute kidney injury -discussed with Dr. Grullon and the patient himself regarding cardiac catheterization in the setting of impaired renal function -we discussed that we will only a diagnostic cath to rule out obstructive CAD today. If we find obstructive CAD then even if PCI is needed it will have to be staged -we also discussed in case of any tello-procedural complication and the need of contrast; it may lead to kidney injury and temporary or permanent hemodialysis. Dr. Grullon and the patient agreed to proceed with cardiac catheterization. -Restof the risks benefits and alternatives of catheterization were discussed with him. Complications include but are not limited to bleeding, arrhythmia, vascular injury, heart attack, stroke, renal dysfunction, pericardial effusion, pericardial tamponade, needing emergency surgery and even -further recommendations post left heart catheterization -rest of the management as per Dr. Hutchinson History of Present Illness History of Present Illness Consult date/time: 06/01/25 10:52 Reason For Visit: many complaints Narrative: Mr Dickson worthington is a 79 year old pleasant gentleman was known to have hypertension, hyperlipidemia admitted with atrial fibrillation, acute systolic heart failure and NSTEMI. He is under care of Dr. Hutchinson. TTE showed an EF of 15-20% with global hypokinesis and her relative sparing of the basal segment segment suggestive of takotsubo cardiomyopathy. I am being consulted for left heart catheterization He denies any chest pain Denies any prior CAD or OR or CVA Family history of CAD He currently has impaired renal function, was normal 3 weeks ago current creatinine 1.5-1.6 Review of Systems 2 Review of Systems: 12 systems were reviewed and are negativ e except for as per HPI. All systems reviewed & are unremarkable except as noted in HPI and below Constitutional: Constitutional: Reports as per HPI, Reports chills, Reports fatigue and Denies fever(s) ENT: Denies dizziness Cardiovascular: Cardiovascular: Reports as per HPI, Denies chest pain, Denies syncope, Denies irregular heart rhythm, Reports dyspnea and Reports dyspnea on exertion Respiratory: Respiratory: Reports as per HPI, Reports cough, Reports dyspnea and Reports dyspnea on exertion Gastrointestinal: Gastrointestinal: Reports as per HPI and Denies abdominal pain Genitourinary: Genitourinary: Reports as per HPI and Denies dysuria Musculoskeletal: Musculoskeletal: Reports as per HPI Neurologic: Reports as per HPI, Denies dizziness and Denies syncope Endocrine: Endocrine: Reports fatigue [facility] Past Medical History Medical History (Updated 05/29/25 @ 08:15 by Ezequiel Hutchinson DO) Heart failure with preserved ejection fraction Chronic obstructive pulmonary disease Prediabetes Atrial fibrillation Lung nodules Umbilical hernia Brain aneurysm Enlarged prostate with lower urinary tract symptoms (LUTS) Essential (primary) hypertension Obstructive sleep apnea (adult) (pediatric) Other psoriatic arthropathy Polyosteoarthritis, unspecified Psoriasis vulgaris Vitamin D deficiency Surgical History Surgical History (Updated 05/28/25 @ 06:24 by Sherin Barraza PA-C) History of arthroscopic knee surgery S/P coil embolization of cerebral aneurysm per CT 05/27/25 interpretation Family History Family History Father Diabetes mellitus Family history of diabetes mellitus in first degree relative, Onset Age: 62 Patient's father is Mother Family history of heart disease in male family member before age 55, Onset Age: 81 Family history of cardiovascular disease Patient's mother is Sibling History of open heart surgery Social History Social History (Updated 05/28/25 @ 06:25 by Sherin Barraza PA-C) Social History: Surrogate medical decision maker: Maura Castillo, daughter. Code status: Full code. Smoking packs per day: 2 Smoking cigarettes per day: 40.0 Years smoked: 40 Smoking pack-years: 80.00 Smoking status: Former smoker Tobacco type: cigarettes, cigars and e-cigarettes/vaping Second hand tobacco smoke exposure: Yes Smoking end date: 12/02/16 Alcohol intake: current Drinks per week: 1 Substance use: current Substance use type: marijuana Other substance usage details: COUPLE TIMES A WEEK Do You Feel Safe in your Home?: Yes Lack of Transportation: YES Lack of Food: Never True Current Housing: I Have Housing Concerned About Future Housing: No Difficulty Paying Gas/Electric Bills: No Difficulty Paying for Meds: No Currently Unemployed: No Education: Grade School Difficulty w/ Childcare or Family Care: No Living arrangements: with family Spiritual care concerns: No Meds Home Medications and Allergies Home Medications ?Medication ?Instructions ?Recorded ?Confirmed ?Type adalimumab 40 mg/0.8 mL See Rx Instructions subcut .COMPLEX 01/13/20 05/28/25 History subcutaneous syringe kit (Humira) multivitamin 1 tablet PO DAILY 01/09/23 05/28/25 History apixaban 2.5 mg tablet (Eliquis) See Rx Instructions .Route 09/30/24 05/28/25 Rx .COMPLEX #60 tabs L.acid,par,plant,rham-B.anim,bif,brev,inf,long 1 cap PO DAILY 05/02/25 05/28/25 History 30 billion cell capsule (Probiotic Digestive Health) aspirin 81 mg capsule 81 mg PO DAILY 05/02/25 05/28/25 History cyanocobalamin (vitamin B-12) 500 500 mcg PO DAILY 05/02/25 05/28/25 History mcg tablet (B-12 DOTS) omega 5-mkx-oco-fish oil 1,200 mg 1 cap PO DAILY 05/02/25 05/28/25 History (144 mg-216 mg) capsule (Fish Oil) tamsulosin 0.4 mg capsule 0.4 mg PO QHS 05/06/25 05/28/25 History calcium carbonate 400 mg (0.8 x 500 mg calcium 05/08/25 05/28/25 Rx (1,250 mg)) PO Q6H PRN Indigestion #30 tabs digoxin 125 mcg (0.125 mg) tablet 125 mcg PO QAM #30 tabs 05/08/25 05/28/25 Rx diltiazem HCl 180 mg 360 mg (2 x 180 mg) BYMOUTH DAILY 05/08/25 05/28/25 Rx capsule,extended release 24 hr, #30 caps controlled metoprolol succinate 100 mg 100 mg PO QHS #30 tabs 05/08/25 05/28/25 Rx tablet,extended release 24 hr (Toprol XL) umeclidinium 62.5 mcg/actuation 62.5 mcg inhalation DAILYRT #30 ea 05/08/25 05/28/25 Rx blister powder for inhalation (Incruse Ellipta) hydrocodone 7.5 mg-acetaminophen 1 tablet PO Q6H PRN pain #110 tabs 05/10/25 05/28/25 Rx 325 mg tablet albuterol sulfate 90 mcg/actuation 2 puff inhalation Q6H PRN 05/28/25 05/28/25 History aerosol inhaler shortness of breath or wheezing Allergies Allergy/AdvReac Type Severity Reaction Status Date / Time No Known Allergies Allergy Unknown Verified 07/01/24 10:25 Vital Signs Vital Signs - 24 hr 05/31/25 12:00 05/31/25 12:27 05/31/25 14:00 Temperature 36.5 C Pulse Rate 91 96 96 Respiratory Rate 20 Blood Pressure 124/77 Pulse Oximetry 98 Oxygen Delivery Oxygen Flow Rate 05/31/25 14:37 05/31/25 14:46 05/31/25 16:00 Temperature Pulse Rate 91 96 109 H Respiratory Rate 16 16 Blood Pressure Pulse Oximetry Oxygen Delivery Oxygen Flow Rate 05/31/25 16:26 05/31/25 18:00 05/31/25 20:00 Temperature 36.3 C L Pulse Rate 105 H 93 91 Respiratory Rate 18 Blood Pressure 120/75 Pulse Oximetry 96 Oxygen Delivery Oxygen Flow Rate 05/31/25 20:01 05/31/25 20:27 05/31/25 20:31 Temperature 36.7 C Pulse Rate 89 87 87 Respiratory Rate 20 18 Blood Pressure 122/75 Pulse Oximetry 99 97 Oxygen Delivery Nasal Cannula Oxygen Flow Rate 2 05/31/25 20:39 05/31/25 20:53 05/31/25 20:53 Temperature Pulse Rate 88 108 H 108 H Respiratory Rate 18 Blood Pressure Pulse Oximetry Oxygen Delivery Oxygen Flow Rate 05/31/25 22:00 05/31/25 23:33 06/01/25 00:00 Temperature 37.2 C Pulse Rate 88 92 85 Respiratory Rate 20 Blood Pressure 98/68 L Pulse Oximetry 98 Oxygen Delivery Oxygen Flow Rate 06/01/25 01:14 06/01/25 01:26 06/01/25 02:00 Temperature Pulse Rate 85 87 90 Respiratory Rate 18 18 Blood Pressure Pulse Oximetry Oxygen Delivery Oxygen Flow Rate 06/01/25 04:00 07/01/25 04:00 06/01/25 06:00 Temperature 36.4 C Pulse Rate 78 82 80 Respiratory Rate 18 Blood Pressure 117/75 Pulse Oximetry 99 Oxygen Delivery Oxygen Flow Rate 06/01/25 07:57 06/01/25 07:57 06/01/25 08:10 Temperature Pulse Rate 83 83 84 Respiratory Rate 14 16 16 Blood Pressure Pulse Oximetry 97 Oxygen Delivery Nasal Cannula Oxygen Flow Rate 2 06/01/25 08:25 06/01/25 09:59 Temperature 36.4 C Pulse Rate 71 84 Respiratory Rate 20 Blood Pressure 111/67 Pulse Oximetry 98 Oxygen Delivery Oxygen Flow Rate Exam 2 Narrative: General: Chronically ill-appearing elderly male in the semi-Ng position no acute distress. HEENT: PERRL, EOMI. Sclera anicteric. Oral mucosa moist. Neck: Supple. No JVD. No stridor. Respiratory: Respirations are nonlabored he speaking in full sentences. Lung sounds diminished with no added sounds Cardiovascular: Irregularly irregular rate and rhythm. Rate controlled Gastrointestinal: Abdomen is soft, nontender, and nondistended with positive bowel sounds. Skin: Warm and dry. No rash or lesions on limited exam. Extremities: No cyanosis or clubbing. Trace tello ankle edema bilaterally. Neurological: Alert. Cranial nerves grossly intact. No gross focal deficits to casual conversation. Psychiatric: Pleasant and cooperative with appropriate mood and affect. Const: General: cooperative, healthy appearing and comfortable O rientation/consciousness: oriented to person, oriented to place and oriented to time Resp: Auscultation: clear to auscultation bilaterally, no crackles, no rales, no rhonchi and no wheezes Cardio: Rate: regular rate and tachycardic Rhythm: abnormal rhythm Heart sounds: no murmurs Peripheral pulses: dorsalis pedis present Neuro: General: oriented to person, oriented to place and oriented to time Extrem: Right lower extremity: no edema Left lower extremity: no edema Results Labs and Meds 06/01/25 04:24 06/01/25 04:24 Lab results: Cardiac Enzymes 06/01/25 Range/Units 04:24 AST 46 (17-59) U/L Coagulation 06/01/25 Range/Units 07:06 APTT 92.8 H (22.3-36.8) Seconds CBC 06/01/25 Range/Units 04:24 WBC 10.8 H (4.5-10.0) K/mm3 RBC 4.04 L (4.6-6.20) M/mm3 Hgb 12.7 L (14.0-18.0) g/dL Hct 39.2 L (42.0-52.0) % Plt Count 141 L (150-375) k/mm3 Lymph # (Auto) 3.34 H (0.9-3.2) K/mm3 [place] # (Auto) 1.1 H (0.1-0.6) K/mm3 Eos # (Auto) 0.9 H (0-0.3) K/mm3 Baso # (Auto) 0.0 (0.0-0.1) K/mm3 Comprehensive Metabolic Panel 06/01/25 Range/Units 04:24 Sodium 133 L (137-145) mmol/L Potassium 3.7 (3.4-5.0) mmol/L Chloride 100 (98-107) mmol/L Carbon Dioxide 24 (22-30) mmol/L BUN 35 H (9-20) mg/dL Creatinine 1.53 H (0.7-1.3) mg/dL Glucose 107 (65-110) mg/dL Calcium 8.0 L (8.4-10.2) mg/dL AST 46 (17-59) U/L ALT 30 (6-50) U/L Alkaline Phosphatase 48 (38-126) U/L Total Protein 6.1 L (6.3-8.2) g/dL Albumin 3.0 L (3.5-5.1) g/dL Intake and Output 05/31/25 06/01/25 06/01/25 23:59 07:59 15:59 Intake Total 880 600 246.2 Output Total 850 350 Balance 30 250 246.2 Intake: IV 100 50 246.2 Heparin Sod/D5w 100 Units/ml 25 246.2 ,000 units In 250 ml @ 1,300 UNITS/HR 13 mls/hr IV CONT . [id number] [facility] Rx#:[id number] Piperacilln/Vic 3.375GM/Ns50ml 100 50 3.375 gm In 50 ml @ 100 mls/hr IVPB Q6H BERNARDA Rx#:[id number] Oral 780 550 Output: Urine 850 350 Patient Weight 06/01/25 23:59 Weight 78.6 kg
--- NOTE | 2025-06-01 11:52 | PM.IMPN ---
Progress Note: A&P Assessment and Plan (1) Non-ST elevation myocardial infarction (NSTEMI): Code(s): I21.4 - Non-ST elevation (NSTEMI) myocardial infarction Status: Acute (2) Atrial fibrillation with rapid ventricular response: Code(s): I48.91 - Unspecified atrial fibrillation Status: Acute (3) Acute kidney injury: Code(s): N17.9 - Acute kidney failure, unspecified Status: Acute (4) Elevated liver enzymes: Code(s): R74.8 - Abnormal levels of other serum enzymes Status: Acute (5) Heart failure with preserved ejection fraction: Code(s): I50.30 - Unspecified diastolic (congestive) heart failure Status: Acute Plan This is a 79-year-old male with history of atrial fibrillation, hypertension, hepatitis-C, chronic kidney disease stage 3, chronic obstructive pulmonary disease, prediabetes, obstructive sleep apnea, benign prostatic hyperplasia, and cerebral aneurysm status post coil who presented to the emergency department via private vehicle from home with several complaints. He was admitted to the hospital earlier this month with pneumonia and ?I think its back again? although he has difficulties elaborating. He says that he is short of breath but has been so for a year or more. He has an occasional cough which is occasionally productive although he cannot describe his sputum quality or quantity. He does report that his appetite has not been great since his hospitalization. He is having difficulties starting his urine stream and he also mentions that he has been out of his tamsulosin for a bit. Additionally he complains of fullness in his ears, on losses though he is underwater, which has been occurring off and on for quite some time. After extensive questioning, it sounds as though overall he is just not feeling well with generalized malaise and weakness. He cannot really pinpoint any one specific symptom. He denies fever, chills, sweats, sinus congestion, sore throat, dysphagia, concerns for aspiration, chest pain, pleuritic pain, palpitations, abdominal pain, nausea, vomiting, diarrhea, dysuria, lower extremity edema, and calf pain. In the ED: Vital signs on arrival include a temperature of 97.6?, blood pressure 113/67, pulse 53, respiratory rate 16, SpO2 96% on room air. Labs were significant for a WBC count of 18.0, D-dimer 0.99, sodium 134, BUN 44, creatinine 1.85, glucose 123, total bilirubin 1.6, AST 73, ALT 53, alkaline phosphatase 67, troponin 5.340, proBNP greater than 30,000. EKG showed T-wave inversions concerning for ischemia in the inferior lateral leads. CTA of the chest, abdomen, and pelvis was negative for pulmonary embolism and aortic dissection. Small bilateral pleural effusions with adjacent compressive atelectasis was noted as well as gallbladder distension with mural thickening and trace surrounding inflammatory change which may be related to vascular congestion and fluid overload. A few hours after presentation, he went into rapid atrial fibrillation with rates into the 120s to 140s. He has been rate controlled since receiving an IV diltiazem bolus. During his most recent hospitalization, there were difficulties controlling his rate and diltiazem was increased to 360 mg daily. He has been out of this medication for several days however. Additionally, he seems to be confused about whether not he is supposed to be taking apixaban and he states that he has not been taking it for unclear reasons. He was started on a heparin drip for non STEMI and is being admitted to the IMU in this setting for close monitoring and Cardiology consultation. Atrial fibrillation with rapid ventricular rate out of diltiazem at home. Resumed 360 mg of diltiazem. Switched to amiodarone oral per Cardiology. Diltiazem has been stopped. AFib now control Non-STEMI with elevated troponin and EKG changes. Serial troponin 5.34-5.6 6-5.5. Possible acute coronary syndrome or due to CHF or AFib with RVR.. CTA with no PE no aortic dissection. Small bilateral pleural effusion with adjacent compressive atelectasis. Gallbladder distention mural thickening and trace surrounding inflammatory change which may be related to vascular congestion and fluid overload rather than inflammatory gallbladder disease. Chest x-ray with trace bilateral pleural effusion with adjacent compressive atelectasis. Echo with EF 15-20% suggestive of Takotsubo cardiomyopathy. Plan for left heart catheterization today Pneumonia elevated leukocytosis chest x-ray with small bilateral pleural effusion with adjacent compressive atelectasis. Added Zosyn. Added Mucinex Respiratory pathogen panel pending. Procalcitonin 0.6. No obvious pneumonia on CTA. He did receive a dose of Lasix. Currently on oral Lasix daily. Will switch Zosyn to oral Augmentin to finish the course WILLIAM and CKD stage 3 baseline creatinine 1.2 admission creatinine 1.8. Creatinine improving no catheterization due to WILLIAM noted. BPH on Flomax Elevated liver enzymes right upper quadrant ultrasound ordered. CT evidence of gallbladder distention with mural thickening and trace surrounding inflammatory change which may be related to vascular congestion and fluid overload received a dose of Lasix. Abdominal ultrasound with prominent edematous appearing gallbladder wall thickening with cholelithiasis. he has no abdominal pain. Antibiotics switched to Augmentin History of hepatitis-C COPD not in exacerbation Prediabetes Obstructive sleep apnea Cerebral aneurysm status post coiling. DVT prophylaxis on heparin drip. Eliquis on hold which will be resumed after catheterization Subjective Date/time seen: 06/01/25 11:52 Interval history: no overnight events. Catheterization could not be done yesterday. He is scheduled to get catheterization done today. cough is getting better. Not much expectoration anymore. Shortness of breath with exertion. No chest pain. Review of Systems Review of Systems: All systems reviewed & are unremarkable except as noted in HPI and below Exam Narrative: General: Chronically ill-appearing elderly male in the semi-Ng position no acute distress. HEENT: PERRL, EOMI. Sclera anicteric. Oral mucosa moist. Neck: Supple. No JVD. No stridor. Respiratory: Respirations are nonlabored he speaking in full sentences. Lung sounds diminished with no added sounds Cardiovascular: Irregularly irregular rate and rhythm. Rate controlled Gastrointestinal: Abdomen is soft, nontender, and nondistended with positive bowel sounds. Skin: Warm and dry. No rash or lesions on limited exam. Extremities: No cyanosis or clubbing. Trace tello ankle edema bilaterally. Neurological: Alert. Cranial nerves grossly intact. No gross focal deficits to casual conversation. Psychiatric: Pleasant and cooperative with appropriate mood and affect. Objective Data Vital Signs Vital Signs: Vital Signs - 24 hr 05/31/25 12:00 05/31/25 12:27 05/31/25 14:00 Temperature 97.7 F Pulse Rate 91 96 96 Respiratory Rate 20 Blood Pressure 124/77 Pulse Oximetry 98 Oxygen Delivery Oxygen Flow Rate 05/31/25 14:37 05/31/25 14:46 05/31/25 16:00 Temperature Pulse Rate 91 96 109 H Respiratory Rate 16 16 Blood Pressure Pulse Oximetry Oxygen Delivery Oxygen Flow Rate 05/31/25 16:26 05/31/25 18:00 05/31/25 20:00 Temperature 97.3 F L Pulse Rate 105 H 93 91 Respiratory Rate 18 Blood Pressure 120/75 Pulse Oximetry 96 Oxygen Delivery Oxygen Flow Rate 05/31/25 20:01 05/31/25 20:27 05/31/25 20:31 Temperature 98.1 F Pulse Rate 89 87 87 Respiratory Rate 20 18 Blood Pressure 122/75 Pulse Oximetry 99 97 Oxygen Delivery Nasal Cannula Oxygen Flow Rate 2 05/31/25 20:39 05/31/25 20:53 05/31/25 20:53 Temperature Pulse Rate 88 108 H 108 H Respiratory Rate 18 Blood Pressure Pulse Oximetry Oxygen Delivery Oxygen Flow Rate 05/31/25 22:00 05/31/25 23:33 06/01/25 00:00 Temperature 98.9 F Pulse Rate 88 92 85 Respiratory Rate 20 Blood Pressure 98/68 L Pulse Oximetry 98 Oxygen Delivery Oxygen Flow Rate 06/01/25 01:14 06/01/25 01:26 06/01/25 02:00 Temperature Pulse Rate 85 87 90 Respiratory Rate 18 18 Blood Pressure Pulse Oximetry Oxygen Delivery Oxygen Flow Rate 06/01/25 04:00 06/01/25 04:00 06/01/25 06:00 Temperature 97.6 F Pulse Rate 78 82 80 Respiratory Rate 18 Blood Pressure 117/75 Pulse Oximetry 99 Oxygen Delivery Oxygen Flow Rate 06/01/25 07:57 06/01/25 07:57 06/01/25 08:10 Temperature Pulse Rate 83 83 84 Respiratory Rate 14 16 16 Blood Pressure Pulse Oximetry 97 Oxygen Delivery Nasal Cannula Oxygen Flow Rate 2 06/01/25 08:25 06/01/25 09:59 06/01/25 11:48 Temperature 97.6 F 97.8 F Pulse Rate 71 84 73 Respiratory Rate 20 22 H Blood Pressure 111/67 112/68 Pulse Oximetry 98 97 Oxygen Delivery Oxygen Flow Rate Intake/Output Intake/Output: Intake & Output 05/29/25 05/30/25 05/31/25 06/01/25 23:59 23:59 23:59 23:59 Intake Total 1345.5 1582.1 1447.1 846.2 Output Total 889 705 5392 400 Balance 695.5 882.1 -677.9 446.2 Meds/Results Medications: Active Medications Generic Name Dose Route Start Last Admin Trade Name Freq PRN Reason Stop Dose Admin Acetaminophen 650 mg 05/27/25 23:08 05/29/25 10:37 Acetaminophen 325 Mg Tablet PO 650 mg Q4H PRN Administration Mild Pain (1-3) or Fever Hydrocodone Bitart/Acetaminophen 1 tab 05/28/25 03:53 Hydrocodone/Acetaminophen (*Crx) 7.5-325 Mg Tablet PO Q6H PRN pain 4-10 Albuterol 2 puff 05/28/25 22:11 05/30/25 10:28 Albuterol Sulfate (*Sp) Aerosol 1 Puff INHALATION 2 puff Q6H PRN Administration shortness of breath or wheezing Albuterol/Ipratropium 3 ml 05/30/25 20:00 06/01/25 07:56 Ipratropium 0.5 Mg/Albuterol Sulfate 2.5 Mg Ampul.Neb 3 Ml INHALATION 3 ml Q6HRT BERNARDA Administration Amiodarone HCl 200 mg 05/28/25 21:00 06/01/25 09:59 Amiodarone Hcl 200 Mg Tablet PO 200 mg Q12HR BERNARDA Administration Aspirin 81 mg 05/28/25 09:00 06/01/25 09:59 Aspirin 81 Mg Enteric Tablet PO 81 mg QAM BERNARDA Administration Calcium Carbonate 400 mg 05/28/25 03:52 Calcium Carbonate (Tums) 500 Mg (200 Mg Elemental) PO Q6H PRN Indigestion Cyanocobalamin 500 mcg 05/28/25 09:00 06/01/25 10:01 Cyanocobalamin 500 Mcg Tablet PO 500 mcg DAILY BERNARDA Administration Digoxin 125 mcg 05/28/25 09:00 06/01/25 10:01 Digoxin Tab 125 Mcg Tablet PO 125 mcg QAM BERNARDA Administration Empagliflozin 10 mg 05/29/25 09:00 06/01/25 10:01 Empagliflozin 10 Mg Tablet PO 10 mg DAILY BERNARDA Administration Fish Oil 1 gm 05/28/25 09:00 06/01/25 09:59 [place] 3 Polyunsat Fatty Acids 1 Gm Cap PO 1 gm DAILY BERNARDA Administration Furosemide 20 mg 05/29/25 09:00 06/01/25 10:00 Furosemide 20 Mg Tablet PO 20 mg DAILY BERNARDA Administration Guaifenesin 600 mg 05/30/25 21:00 06/01/25 10:01 Guaifenesin 12 Hr 600 Mg Tabcr PO 600 mg Q12HR BERNARDA Administration Heparin Sodium (Porcine) 4,000 units 05/27/25 23:04 05/28/25 18:30 Heparin Sodium 5,000 Units/Ml Vial IV PUSH 4,000 units PRN PRN Administration aPTT less than 55 seconds Heparin Sodium (Porcine) 3,000 units 05/27/25 23:04 05/29/25 10:38 Heparin Sodium 5,000 Units/Ml Vial IV PUSH 3,000 units PRN PRN Administration aPTT 55 - 70 seconds Heparin Sodium/Dextrose 25,000 units in 250 mls @ 13 mls/hr 05/27/25 23:05 06/01/25 09:58 Heparin Sodium/D5w 100 Units/Ml IV CONT 1,300 units/hr .[id number] BERNARDA 13 mls/hr Administration Protocol 1,300 UNITS/HR Piperacillin/Tazobactam/Dextrose 3.375 gm in 50 mls @ 100 mls/hr 05/28/25 15:00 06/01/25 10:02 Zosyn 3.375 Gm/Ns 50 Ml IVPB 100 mls/hr Q6H BERNARDA Administration Lactobacillus Acidophilus 1 tablet 05/28/25 09:00 06/01/25 10:00 Acidophilus/[place]gar[place] Chewable Tablet BY MOUTH 1 tablet DAILY BERNARDA Administration Melatonin 3 mg 05/29/25 22:03 05/31/25 21:11 Melatonin 3 Mg Tablet PO 3 mg HS PRN Administration Insomnia Metoprolol Succinate 100 mg 05/28/25 21:00 05/31/25 20:53 Metoprolol Succinate Ext Rel 100 Mg Tabcr PO 100 mg QHS BERNARDA Administration Multivitamins Therapeutic 1 tablet 05/28/25 09:00 06/01/25 10:00 Multivitamins Therapeutic Tab (*Bkc) PO 1 tablet DAILY BERNARDA Administration Ondansetron HCl 4 mg 05/27/25 23:08 Ondansetron Inj 4 Mg/2 Ml Vial IV PUSH Q4H PRN Nausea Tamsulosin HCl 0.4 mg 05/28/25 21:00 05/31/25 20:53 Tamsulosin Hcl 0.4 Mg Capsule PO 0.4 mg QHS BERNARDA Administration Umeclidinium [place] 1 puff 05/28/25 08:00 06/01/25 07:56 Umeclidinium [place] 62.5 Mcg Ellipta INHALATION 1 puff DAILYRT BERNARDA Administration Radiology Results: ITS Impressions Chest X-Ray 05/27/25 22:43 IMPRESSION: Trace bilateral pleural effusions with adjacent compressive atelectasis. Chest/Abdomen/Pelvis CTA 05/27/25 22:44 IMPRESSION: No pulmonary embolus. No aortic dissection. Small bilateral pleural effusions with adjacent compressive atelectasis. Gallbladder distention with mural thickening and trace surrounding inflammatory change, which may be related to vascular congestion and fluid overload rather than inflammatory gallbladder disease, for which clinical (and serologic) correlation is needed. Internal Auditory Canal CT 05/28/25 08:21 IMPRESSION: No definite abnormality seen in both temporal bones. Renal Ultrasound 05/28/25 21:32 IMPRESSION: No hydronephrosis or renal calculi. No findings to suggest medical renal disease. Simple cyst within the interpolar region of the right kidney, for which no further follow-up is needed. Abdomen Ultrasound 05/29/25 12:51 IMPRESSION: 1. Cholelithiasis and prominent edematous-appearing gallbladder wall thickening but with negative sonographic Snowden's sign which is equivocal for acute cholecystitis. No significant surrounding infiltration and was evident on the prior CT and the gallbladder wall thickening could potentially also be secondary to heart failure, liver disease, renal failure or other generalized edema forming states. Could consider HIDA scan for further evaluation as clinically indicated. Labs Labs: Laboratory Results - last 24 hr 06/01/25 06/01/25 04:24 07:06 WBC 10.8 H RBC 4.04 L Hgb 12.7 L Hct 39.2 L MCV 97.0 MCH 31.4 MCHC 32.4 RDW 16.0 H Plt Count 141 L MPV 12.3 H Immature Gran % (Auto) 0.6 H Neut % (Auto) 49.0 Lymph % (Auto) 30.9 [place] % (Auto) 10.5 H Eos % (Auto) 8.6 H Baso % (Auto) 0.4 Lymph # (Auto) 3.34 H [place] # (Auto) 1.1 H Eos # (Auto) 0.9 H Baso # (Auto) 0.0 Abs Immat Gran (auto) 0.06 H Absolute Neuts (auto) 5.3 Absolute Nucleated RBC 0.000 Nucleated RBC % 0.0 APTT 92.8 H Sodium 133 L Potassium 3.7 Chloride 100 Carbon Dioxide 24 Anion Gap 9 BUN 35 H Creatinine 1.53 H Estim Creat Clear Calc 35 Estimated GFR 44 L Glucose 107 Calcium 8.0 L Magnesium 2.1 Total Bilirubin 0.9 AST 46 ALT 30 Alkaline Phosphatase 48 Total Protein 6.1 L Albumin 3.0 L
--- NOTE | 2025-06-01 12:04 | PCOTNOTE ---
Pt. has planned procedure today at 11:30. Unable to participate in therapy services at this time. Following.
--- NOTE | 2025-06-01 13:15 | WPDCARDPROC ---
Cardiac Cath Procedure Note Date of procedure:: 06/01/25 Performing physician:: Jeffrey Wolff MD Indication:: 1. Acute systolic heart failure 2. NSTEMI 3. Acute kidney injury 4. Atrial fibrillation Procedure Procedure performed:: 1. Right radial artery access, 6 [place] 2. Left heart catheterizations/coronary angiography; aborted Sedation/Medication given:: Versed 1 Fentanyl 25 mcg Access site:: -right radial artery -right femoral artery Estimated blood loss:: 5 cc Procedure note:: -the patient's right radial artery was accessed and the 5-6 [place] sheath was placed. There was difficulty in traversing the wire across the brachial artery; we decided to go right femoral. His right femoral artery was accessed under ultrasound guidance there was difficulty in traversing with the wire across the iliac and the abdominal aorta. Common femoral and iliac arteries were heavily calcified. We were able to traverse with a versicore wire across the distal abdominal aorta. However, we were unable to pass through the mid abdominal aorta. Most likely there is a stenosis. We were then able to to traverse the brachial artery on a second attempt with Versicore wire.However the subclavian artery/ascending aorta was very tortuous and we had difficulty in torquing our catheter. We decided to abort the procedure from the right radial. We planned a left radial approach. However there was on ly a single IV access near the left radial artery Findings:: Procedure not performed Assessment and Plan Assessment and plan (1) Systolic heart failure: Code(s): I50.20 - Unspecified systolic (congestive) heart failure Status: Acute (2) Essential (primary) hypertension: Code(s): I10 - Essential (primary) hypertension Status: Acute (3) Non-ST elevation [place] (NSTEMI): Code(s): I21.4 - Non-ST elevation (NSTEMI) myocardial infarction Status: Acute (4) Atrial fibrillation: Code(s): I48.91 - Unspecified atrial fibrillation Status: Acute Plan - LHC/coronary angiography tomorrow via Left radial approach - Heparin to be restarted at 6 PM if the radial and femoral access sites mayda table - Appraised the patient - Discussed wit dr Hutchinson, suspect he has MVD
--- NOTE | 2025-06-01 14:20 | P.SEDATION_ITS ---
Moderate Sedation Note-Pt Data Patient Data Diagnosis: CHF NSTEMI Cardiomyopathy Procedure to be performed/Plan: Left heart catheterization Coronary angiography Allergies Allergy/AdvReac Type Severity Reaction Status Date / Time No Known Allergies Allergy Unknown Verified 07/01/24 10:25 Home Medications ?Medication ?Instructions ?Recorded ?Confirmed ?Type adalimumab 40 mg/0.8 mL See Rx Instructions subcut .COMPLEX 01/13/20 05/28/25 History subcutaneous syringe kit (Humira) multivitamin 1 tablet PO DAILY 01/09/23 05/28/25 History apixaban 2.5 mg tablet (Eliquis) See Rx Instructions .Route 09/30/24 05/28/25 Rx .COMPLEX #60 tabs L.acid,par,plant,rham-B.anim,bif,brev,inf,long 1 cap PO DAILY 05/02/25 05/28/25 History 30 billion cell capsule ([facility]) aspirin 81 mg capsule 81 mg PO DAILY 05/02/25 05/28/25 History cyanocobalamin (vitamin B-12) 500 500 mcg PO DAILY 05/02/25 05/28/25 History mcg tablet (B-12 DOTS) omega 6-joz-pes-fish oil 1,200 mg 1 cap PO DAILY 05/02/25 05/28/25 History (144 mg-216 mg) capsule (Fish Oil) tamsulosin 0.4 mg capsule 0.4 mg PO QHS 05/06/25 05/28/25 History calcium carbonate 400 mg (0.8 x 500 mg calcium 05/08/25 05/28/25 Rx (1,250 mg)) PO Q6H PRN Indigestion #30 tabs digoxin 125 mcg (0.125 mg) tablet 125 mcg PO QAM #30 tabs 05/08/25 05/28/25 Rx diltiazem HCl 180 mg 360 mg (2 x 180 mg) BYMOUTH DAILY 05/08/25 05/28/25 Rx capsule,extended release 24 hr, #30 caps controlled metoprolol succinate 100 mg 100 mg PO QHS #30 tabs 05/08/25 05/28/25 Rx tablet,extended release 24 hr (Toprol XL) umeclidinium 62.5 mcg/actuation 62.5 mcg inhalation DAILYRT #30 ea 05/08/25 05/28/25 Rx blister powder for inhalation (Incruse Ellipta) hydrocodone 7.5 mg-acetaminophen 1 tablet PO Q6H PRN pain #110 tabs 05/10/25 05/28/25 Rx 325 mg tablet albuterol sulfate 90 mcg/actuation 2 puff inhalation Q6H PRN 05/28/25 05/28/25 History aerosol inhaler shortness of breath or wheezing Current Medications: Active Medications Acetaminophen (Acetaminophen 325 Mg Tablet) 650 mg PO Q4H PRN PRN Reason: Mild Pain (1-3) or Fever Last Admin: 05/29/25 10:37 Dose: 650 mg Hydrocodone Bitart/Acetaminophen (Hydrocodone/Acetaminophen (*Crx) 7.5-325 Mg Tablet) 1 tab PO Q6H PRN PRN Reason: pain 4-10 Albuterol (Albuterol Sulfate (*Sp) Aerosol 1 Puff) 2 puff INHALATION Q6H PRN PRN Reason: shortness of breath or wheezing Last Admin: 05/30/25 10:28 Dose: 2 puff Albuterol/Ipratropium (Ipratropium 0.5 Mg/Albuterol Sulfate 2.5 Mg Ampul.Neb 3 Ml) 3 ml INHALATION Q6HRT [facility] Last Admin: 06/01/25 07:56 Dose: 3 ml Amiodarone HCl (Amiodarone Hcl 200 Mg Tablet) 200 mg PO Q12HR [facility] Last Admin: 06/01/25 09:59 Dose: 200 mg Amoxicillin/Clavulanate Potassium (Amoxicillin/Clavulanate K 875-125 Mg Tab) 1 tablet PO Q12HR [facility] Stop: 06/04/25 20:59 Aspirin (Aspirin 81 Mg Enteric Tablet) 81 mg PO QAM [facility] Last Admin: 06/01/25 09:59 Dose: 81 mg Calcium Carbonate (Calcium Carbonate (Tums) 500 Mg (200 Mg Elemental)) 400 mg PO Q6H PRN PRN Reason: Indigestion Cyanocobalamin (Cyanocobalamin 500 Mcg Tablet) 500 mcg PO DAILY [facility] Last Admin: 06/01/25 10:01 Dose: 500 mcg Digoxin (Digoxin Tab 125 Mcg Tablet) 125 mcg PO QAM [facility] Last Admin: 06/01/25 10:01 Dose: 125 mcg Empagliflozin (Empagliflozin 10 Mg Tablet) 10 mg PO DAILY [facility] Last Admin: 06/01/25 10:01 Dose: 10 mg Fish Oil ([place] 3 Polyunsat Fatty Acids 1 Gm Cap) 1 gm PO DAILY [facility] Last Admin: 06/01/25 09:59 Dose: 1 gm Furosemide (Furosemide 20 Mg Tablet) 20 mg PO DAILY [facility] Last Admin: 06/01/25 10:00 Dose: 20 mg Guaifenesin (Guaifenesin 12 Hr 600 Mg Tabcr) 600 mg PO Q12HR [facility] Last Admin: 06/01/25 10:01 Dose: 600 mg Heparin Sodium (Porcine) (Heparin Sodium 5,000 Units/Ml Vial) 4,000 units IV PUSH PRN PRN PRN Reason: aPTT less than 55 seconds Last Admin: 05/28/25 18:30 Dose: 4,000 units Heparin Sodium (Porcine) (Heparin Sodium 5,000 Units/Ml Vial) 3,000 units IV PUSH PRN PRN PRN Reason: aPTT 55 - 70 seconds Last Admin: 05/29/25 10:38 Dose: 3,000 units Heparin Sodium/Dextrose (Heparin Sodium/D5w 100 Units/Ml) 25,000 units in 250 mls @ 13 mls/hr IV CONT .[id number] [facility]; Protocol Last Admin: 06/01/25 09:58 Dose: 1,300 units/hr, 13 mls/hr Lactobacillus Acidophilus (Acidophilus/Bulgaricus Chewable Tablet) 1 tablet BY MOUTH DAILY [facility] Last Admin: 06/01/25 10:00 Dose: 1 tablet Melatonin (Melatonin 3 Mg Tablet) 3 mg PO HS PRN PRN Reason: Insomnia Last Admin: 05/31/25 21:11 Dose: 3 mg Metoprolol Succinate (Metoprolol Succinate Ext Rel 100 Mg Tabcr) 100 mg PO QHS [facility] Last Admin: 05/31/25 20:53 Dose: 100 mg Multivitamins Therapeutic (Multivitamins Therapeutic Tab (*Bkc)) 1 tablet PO DAILY [facility] Last Admin: 06/01/25 10:00 Dose: 1 tablet Ondansetron HCl (Ondansetron Inj 4 Mg/2 Ml Vial) 4 mg IV PUSH Q4H PRN PRN Reason: Nausea Tamsulosin HCl (Tamsulosin Hcl 0.4 Mg Capsule) 0.4 mg PO QHS [facility] Last Admin: 05/31/25 20:53 Dose: 0.4 mg Umeclidinium [place] (Umeclidinium [place] 62.5 Mcg Ellipta) [facility] Last Admin: 06/01/25 07:56 Dose: 1 puff Sedation/Anesthesia: No previous sedation/anesthesia problems (including family history). [facility] Past Medical History Medical History (Updated 05/29/25 @ 08:15 by Ezequiel Hutchinson DO) Heart failure with preserved ejection fraction Chronic obstructive pulmonary disease Prediabetes Atrial fibrillation Lung nodules Umbilical hernia Brain aneurysm Enlarged prostate with lower urinary tract symptoms (LUTS) Essential (primary) hypertension Obstructive sleep apnea (adult) (pediatric) Other psoriatic arthropathy Polyosteoarthritis, unspecified Psoriasis vulgaris Vitamin D deficiency Surgical History Surgical History (Updated 05/28/25 @ 06:24 by Sherin Barraza PA-C) History of arthroscopic knee surgery S/P coil embolization of cerebral aneurysm per CT 05/27/25 interpretation Family History Family History Father Diabetes mellitus Family history of diabetes mellitus in first degree relative, Onset Age: 62 Patient's father is Mother Family history of heart disease in male family member before age 55, Onset Age: 81 Family history of cardiovascular disease Patient's mother is Sibling History of open heart surgery Social History Social History (Updated 05/28/25 @ 06:25 by Sherin Barraza PA-C) Social History: Surrogate medical decision maker: Maura Castillo, daughter. Code status: Full code. Smoking packs per day: 2 Smoking cigarettes per day: 40.0 Years smoked: 40 Smoking pack-years: 80.00 Smoking status: Former smoker Tobacco type: cigarettes, cigars and e-cigarettes/vaping Second hand tobacco smoke exposure: Yes Smoking end date: 12/02/16 Alcohol intake: current Drinks per week: 1 Substance use: current Substance use type: marijuana Other substance usage details: COUPLE TIMES A WEEK Do You Feel Safe in your Home?: Yes Lack of Transportation: YES Lack of Food: Never True Current Housing: I Have Housing Concerned About Future Housing: No Difficulty Paying Gas/Electric Bills: No Difficulty Paying for Meds: No Currently Unemployed: No Education: Grade School Difficulty w/ Childcare or Family Care: No Living arrangements: with family Spiritual care concerns: No Mod Sed Physical Exam Physical Exam Pre Procedural Exam: Normal: Appearance, Eyes, Ears, Nose, Neck, Throat, Airway, Lungs, Heart Size, Heart Rate, Heart Rhythm, Neuro Exam, Abdomen, Liver, Kidneys, Spleen, Breasts, Genitalia, Extremities and Skin Hours since solid foods: 12 Hours since liquid intake: 12 Mallampati Classification: class III Internal Medicine - PN: Obj Da Vital Signs Vital Signs: Vital Signs - 24 hr 05/31/25 14:37 05/31/25 14:46 05/31/25 16:00 Temperature Pulse Rate 91 96 109 H Pulse Rate [Bilateral Pedal (Dorsalis Pedis) Palpation] Pulse Rate [Left Pedal (Dorsalis Pedis) Palpation] Respiratory Rate 16 16 Blood Pressure Pulse Oximetry Oxygen Delivery Oxygen Flow Rate 05/31/25 16:26 05/31/25 18:00 05/31/25 20:00 Temperature 36.3 C L Pulse Rate 105 H 93 91 Pulse Rate [Bilateral Pedal (Dorsalis Pedis) Palpation] Pulse Rate [Left Pedal (Dorsalis Pedis) Palpation] Respiratory Rate 18 Blood Pressure 120/75 Pulse Oximetry 96 Oxygen Delivery Oxygen Flow Rate 05/31/25 20:01 05/31/25 20:27 05/31/25 20:31 Temperature 36.7 C Pulse Rate 89 87 87 Pulse Rate [Bilateral Pedal (Dorsalis Pedis) Palpation] Pulse Rate [Left Pedal (Dorsalis Pedis) Palpation] Respiratory Rate 20 18 Blood Pressure 122/75 Pulse Oximetry 99 97 Oxygen Delivery Nasal Cannula Oxygen Flow Rate 2 05/31/25 20:39 05/31/25 20:53 05/31/25 20:53 Temperature Pulse Rate 88 108 H 108 H Pulse Rate [Bilateral Pedal (Dorsalis Pedis) Palpation] Pulse Rate [Left Pedal (Dorsalis Pedis) Palpation] Respiratory Rate 18 Blood Pressure Pulse Oximetry Oxygen Delivery Oxygen Flow Rate 05/31/25 22:00 05/31/25 23:33 06/01/25 00:00 Temperature 37.2 C Pulse Rate 88 92 85 Pulse Rate [Bilateral Pedal (Dorsalis Pedis) Palpation] Pulse Rate [Left Pedal (Dorsalis Pedis) Palpation] Respiratory Rate 20 Blood Pressure 98/68 L Pulse Oximetry 98 Oxygen Delivery Oxygen Flow Rate 06/01/25 01:14 06/01/25 01:26 06/01/25 02:00 Temperature Pulse Rate 85 87 90 Pulse Rate [Bilateral Pedal (Dorsalis Pedis) Palpation] Pulse Rate [Left Pedal (Dorsalis Pedis) Palpation] Respiratory Rate 18 18 Blood Pressure Pulse Oximetry Oxygen Delivery Oxygen Flow Rate 06/01/25 04:00 06/01/25 04:00 06/01/25 06:00 Temperature 36.4 C Pulse Rate 78 82 80 Pulse Rate [Bilateral Pedal (Dorsalis Pedis) Palpation] Pulse Rate [Left Pedal (Dorsalis Pedis) Palpation] Respiratory Rate 18 Blood Pressure 117/75 Pulse Oximetry 99 Oxygen Delivery Oxygen Flow Rate 06/01/25 07:57 06/01/25 07:57 06/01/25 08:00 Temperature Pulse Rate 83 83 79 Pulse Rate [Bilateral Pedal (Dorsalis Pedis) Palpation] Pulse Rate [Left Pedal (Dorsalis Pedis) Palpation] Respiratory Rate 14 16 Blood Pressure Pulse Oximetry 97 Oxygen Delivery Nasal Cannula Oxygen Flow Rate 2 06/01/25 08:10 06/01/25 08:25 06/01/25 09:59 Temperature 36.4 C Pulse Rate 84 71 84 Pulse Rate [Bilateral Pedal (Dorsalis Pedis) Palpation] Pulse Rate [Left Pedal (Dorsalis Pedis) Palpation] Respiratory Rate 16 20 Blood Pressure 111/67 Pulse Oximetry 98 Oxygen Delivery Oxygen Flow Rate 06/01/25 11:48 06/01/25 13:30 06/01/25 13:30 Temperature 36.6 C Pulse Rate 73 84 Pulse Rate [Bilateral Pedal (Dorsalis Pedis) Palpation] 84 Pulse Rate [Left Pedal (Dorsalis Pedis) Palpation] 84 Respiratory Rate 22 H 19 Blood Pressure 112/68 115/71 Pulse Oximetry 97 97 Oxygen Delivery Nasal Cannula Oxygen Flow Rate 2 06/01/25 13:45 06/01/25 13:45 06/01/25 14:00 Temperature Pulse Rate 85 Pulse Rate [Bilateral Pedal (Dorsalis Pedis) Palpation] 84 83 Pulse Rate [Left Pedal (Dorsalis Pedis) Palpation] 85 83 Respiratory Rate 19 Blood Pressure 120/72 Pulse Oximetry 94 Oxygen Delivery Nasal Cannula Oxygen Flow Rate 2 06/01/25 14:15 06/01/25 14:15 Temperature Pulse Rate 83 Pulse Rate [Bilateral Pedal (Dorsalis Pedis) Palpation] 83 Pulse Rate [Left Pedal (Dorsalis Pedis) Palpation] 83 Respiratory Rate 18 Blood Pressure 147/119 H Pulse Oximetry 96 Oxygen Delivery Nasal Cannula Oxygen Flow Rate 2 Intake/Output Intake/Output: Intake & Output 05/29/25 05/30/25 05/31/25 06/01/25 23:59 23:59 23:59 23:59 Intake Total 1345.5 1582.1 1447.1 846.2 Output Total 831 409 0497 400 Balance 695.5 882.1 -677.9 446.2 Meds/Results Medications: Active Medications Generic Name Dose Route Start Last Admin Trade Name Freq PRN Reason Stop Dose Admin Acetaminophen 650 mg 05/27/25 23:08 05/29/25 10:37 Acetaminophen 325 Mg Tablet PO 650 mg Q4H PRN Administration Mild Pain (1-3) or Fever Hydrocodone Bitart/Acetaminophen 1 tab 05/28/25 03:53 Hydrocodone/Acetaminophen (*Crx) 7.5-325 Mg Tablet PO Q6H PRN pain 4-10 Albuterol 2 puff 05/28/25 22:11 05/30/25 10:28 Albuterol Sulfate (*Sp) Aerosol 1 Puff INHALATION 2 puff Q6H PRN Administration shortness of breath or wheezing Albuterol/Ipratropium 3 ml 05/30/25 20:00 06/01/25 07:56 Ipratropium 0.5 Mg/Albuterol Sulfate 2.5 Mg Ampul.Neb 3 Ml INHALATION 3 ml Q6HRT BERNARDA Administration Amiodarone HCl 200 mg 05/28/25 21:00 06/01/25 09:59 Amiodarone Hcl 200 Mg Tablet PO 200 mg Q12HR BERNARDA Administration Amoxicillin/Clavulanate Potassium 1 tablet 06/01/25 21:00 Amoxicillin/Clavulanate K 875-125 Mg Tab PO 06/04/25 20:59 Q12HR BERNARDA Aspirin 81 mg 05/28/25 09:00 06/01/25 09:59 Aspirin 81 Mg Enteric Tablet PO 81 mg QAM BERNARDA Administration Calcium Carbonate 400 mg 05/28/25 03:52 Calcium Carbonate (Tums) 500 Mg (200 Mg Elemental) PO Q6H PRN Indigestion Cyanocobalamin 500 mcg 05/28/25 09:00 06/01/25 10:01 Cyanocobalamin 500 Mcg Tablet PO 500 mcg DAILY BERNARDA Administration Digoxin 125 mcg 05/28/25 09:00 06/01/25 10:01 Digoxin Tab 125 Mcg Tablet PO 125 mcg QAM BERNARDA Administration Empagliflozin 10 mg 05/29/25 09:00 06/01/25 10:01 Empagliflozin 10 Mg Tablet PO 10 mg DAILY BERNARDA Administration Fish Oil 1 gm 05/28/25 09:00 06/01/25 09:59 [place] 3 Polyunsat Fatty Acids 1 Gm Cap PO 1 gm DAILY BERNARDA Administration Furosemide 20 mg 05/29/25 09:00 06/01/25 10:00 Furosemide 20 Mg Tablet PO 20 mg DAILY BERNARDA Administration Guaifenesin 600 mg 05/30/25 21:00 06/01/25 10:01 Guaifenesin 12 Hr 600 Mg Tabcr PO 600 mg Q12HR BERNARDA Administration Heparin Sodium (Porcine) 4,000 units 05/27/25 23:04 05/28/25 18:30 Heparin Sodium 5,000 Units/Ml Vial IV PUSH 4,000 units PRN PRN Administration aPTT less than 55 seconds Heparin Sodium (Porcine) 3,000 units 05/27/25 23:04 05/29/25 10:38 Heparin Sodium 5,000 Units/Ml Vial IV PUSH 3,000 units PRN PRN Administration aPTT 55 - 70 seconds Heparin Sodium/Dextrose 25,000 units in 250 mls @ 13 mls/hr 05/27/25 23:05 06/01/25 09:58 Heparin Sodium/D5w 100 Units/Ml IV CONT 1,300 units/hr .[id number] BERNARDA 13 mls/hr Administration Protocol 1,300 UNITS/HR Lactobacillus Acidophilus 1 tablet 05/28/25 09:00 06/01/25 10:00 Acidophilus/Bulgaricus Chewable Tablet BY MOUTH 1 tablet DAILY BERNARDA Administration Melatonin 3 mg 05/29/25 22:03 05/31/25 21:11 Melatonin 3 Mg Tablet PO 3 mg HS PRN Administration Insomnia Metoprolol Succinate 100 mg 05/28/25 21:00 05/31/25 20:53 Metoprolol Succinate Ext Rel 100 Mg Tabcr PO 100 mg QHS BERNARDA Administration Multivitamins Therapeutic 1 tablet 05/28/25 09:00 06/01/25 10:00 Multivitamins Therapeutic Tab (*Bkc) PO 1 tablet DAILY BERNARDA Administration Ondansetron HCl 4 mg 05/27/25 23:08 Ondansetron Inj 4 Mg/2 Ml Vial IV PUSH Q4H PRN Nausea Tamsulosin HCl 0.4 mg 05/28/25 21:00 05/31/25 20:53 Tamsulosin Hcl 0.4 Mg Capsule PO 0.4 mg QHS BERNARDA Administration Umeclidinium [place] 1 puff 05/28/25 08:00 06/01/25 07:56 Umeclidinium [place] 62.5 Mcg Ellipta INHALATION 1 puff DAILYRT BERNARDA Administration Radiology Results: ITS Impressions Chest X-Ray 05/27/25 22:43 IMPRESSION: Trace bilateral pleural effusions with adjacent compressive atelectasis. Chest/Abdomen/Pelvis CTA 05/27/25 22:44 IMPRESSION: No pulmonary embolus. No aortic dissection. Small bilateral pleural effusions with adjacent compressive atelectasis. Gallbladder distention with mural thickening and trace surrounding inflammatory change, which may be related to vascular congestion and fluid overload rather than inflammatory gallbladder disease, for which clinical (and serologic) correlation is needed. Internal Auditory Canal CT 05/28/25 08:21 IMPRESSION: No definite abnormality seen in both temporal bones. Renal Ultrasound 05/28/25 21:32 IMPRESSION: No hydronephrosis or renal calculi. No findings to suggest medical renal disease. Simple cyst within the interpolar region of the right kidney, for which no further follow-up is needed. Abdomen Ultrasound 05/29/25 12:51 IMPRESSION: 1. Cholelithiasis and prominent edematous-appearing gallbladder wall thickening but with negative sonographic Snowden's sign which is equivocal for acute cholecystitis. No significant surrounding infiltration and was evident on the prior CT and the gallbladder wall thickening could potentially also be secondary to heart failure, liver disease, renal failure or other generalized edema forming states. Could consider HIDA scan for further evaluation as clinically indicated. Labs 06/01/25 04:24 06/01/25 04:24 Labs: Laboratory Results - last 24 hr 06/01/25 06/01/25 04:24 07:06 WBC 10.8 H RBC 4.04 L Hgb 12.7 L Hct 39.2 L MCV 97.0 MCH 31.4 MCHC 32.4 RDW 16.0 H Plt Count 141 L MPV 12.3 H Immature Gran % (Auto) 0.6 H Neut % (Auto) 49.0 Lymph % (Auto) 30.9 [place] % (Auto) 10.5 H Eos % (Auto) 8.6 H Baso % (Auto) 0.4 Lymph # (Auto) 3.34 H [place] # (Auto) 1.1 H Eos # (Auto) 0.9 H Baso # (Auto) 0.0 Abs Immat Gran (auto) 0.06 H Absolute Neuts (auto) 5.3 Absolute Nucleated RBC 0.000 Nucleated RBC % 0.0 APTT 92.8 H Sodium 133 L Potassium 3.7 Chloride 100 Carbon Dioxide 24 Anion Gap 9 BUN 35 H Creatinine 1.53 H Estim Creat Clear Calc 35 Estimated GFR 44 L Glucose 107 Calcium 8.0 L Magnesium 2.1 Total Bilirubin 0.9 AST 46 ALT 30 Alkaline Phosphatase 48 Total Protein 6.1 L Albumin 3.0 L ASA Classification/Sedation ASA Classification/Sedation ASA Class: III Emergent: No Risks: Risks, benefits and alternatives explained and patient/family accepted plan for sedation. Patient re-evaluated immediately prior to sedation. Moderate Sedation note put in after the cathT done as there was some problem with EMR
--- NOTE | 2025-06-01 16:00 | PC.NURSE ---
Maura [id number] patient's wallet home.
[2025-06-01] MEDS: TAMSULOSIN HCL 0.4 MG CAPSULE PO (21:11)
[2025-06-01] MEDS: METOPROLOL SUCCINATE EXT REL 100 MG TABCR PO (21:11)
[2025-06-02] VITALS (38 sets, daily range): BP systolic 110–138; BP diastolic 59–86; PULSE 65–101; RESP 14–20; TEMP 36.4–37.1; O2SAT 93–100; BMI 27.7
[2025-06-02 01:25] LABS: Partial Thromboplastin Time 70.0 Seconds (22.3-36.8)
[2025-06-02] MEDS: MELATONIN 3 MG TABLET PO (01:38)
[2025-06-02] MEDS: IPRATROPIUM 0.5 MG/ALBUTEROL SULFATE 2.5 MG AMPUL.NEB 3 ML INHALATION ×3 (01:44→20:08)
[2025-06-02 04:35] LABS: Hematocrit 38.2 % (42.0-52.0); Hemoglobin 12.4 g/dL (14.0-18.0); Immature Granulocyte Percent A 0.4 % (0-0.5); Lymphocytes Absolute Auto 3.02 K/mm3 (0.9-3.2); Mean Corpuscular HGB Conc 32.5 g/dl (32-36); Mean Corpuscular Hemoglobin 31.3 pg (26-34); Mean Corpuscular Volume 96.5 fl (80-100); Nucleated Red Blood Cells Absolute Auto 0.000 K/mm3 (0.0-0.012); Nucleated Red Blood Cells Perc 0.0 % (0.0-0.2); Platelet Count Result 151 k/mm3 (150-375); Red Blood Count 3.96 M/mm3 (4.6-6.20); White Blood Count 11.7 K/mm3 (4.5-10.0)
[2025-06-02 04:48] LABS: Alanine Aminotransferase 29 U/L (6-50); Albumin Level 3.0 g/dL (3.5-5.1); Alkaline Phosphatase 51 U/L (38-126); Anion Gap 7 mmol/L (4-12); Aspartate Amino Transferase 34 U/L (17-59); Bilirubin,Total 0.5 mg/dL (0.2-1.3); Blood Urea Nitrogen 29 mg/dL (9-20); Calcium 8.1 mg/dL (8.4-10.2); Carbon Dioxide 29 mmol/L (22-30); Chloride 98 mmol/L (98-107); Estimated CRCL calculation 36 ml/min; Estimated Glomerular Filt Rate 46; Glucose 191 mg/dL (65-110); Magnesium 2.0 mg/dL (1.6-2.3); Potassium 4.1 mmol/L (3.4-5.0); Sodium 134 mmol/L (137-145); Total Protein 5.9 g/dL (6.3-8.2)
[2025-06-02 07:53] LABS: Partial Thromboplastin Time 160.7 Seconds (22.3-36.8)
--- NOTE | 2025-06-02 07:55 | PCPTNOTE ---
Pt will being going for a 2nd procedure today. Pt currently has bedrest orders. Nursing aware. Will follow.
--- NOTE | 2025-06-02 08:02 | P.PNCA_ITS ---
Progress Note: A&P Assessment and Plan (1) Atrial fibrillation with rapid ventricular response: Code(s): I48.91 - Unspecified atrial fibrillation Status: Acute Assessment and Plan: In atrial fibrillation with HR controlled today. [id number] 4. Was on Eliquis in hospital but he did not continue it upon discharge recently. On Metoprolol, and Digoxin and Amiodarone. Diltiazem was restarted as he was not taking it at home when it ran out a few days ago. Monitor HR. On Amiodarone since 05/28/25 to improve HR or cardiovert. Check EKG. Stopped Cardizem since HR is controlled and to avoid negative inotropic me dication without HF benefit. (2) Elevated troponin: Code(s): R79.89 - Other specified abnormal findings of blood chemistry Status: Acute Assessment and Plan: Moderately elevated 5.6 and trending down. Possible due to tachycardia mediated cardiomyopathy, Takotsubo cardiomyopathy or ACS in that order, or from Noncardiac such as pneumonia. On heparin drip. After C may stop heparin drip. (3) Essential (primary) hypertension: Code(s): I10 - Essential (primary) hypertension Status: Acute Assessment and Plan: Stable. (4) Systolic heart failure: Code(s): I50.20 - Unspecified systolic (congestive) heart failure Status: Acute Assessment and Plan: Acute. Possible due to tachycardia mediated cardiomyopathy, Takotsubo cardiomyopathy or ACS in that order. 05/28/25 Limited echo: EF 15-20%, severe LVE, only small basal segments have normal contractility s/o Takotsubo cardiomyopathy, diastolic function not assessed. Rate is controlled today. Started Jardiance 10 mg daily. Hold off on Entresto due to low normal BP and kidney impairment. Ordered life vest to prevent sudden cardiac arrest though patient still wants to think about it. Dr. Wolff had attempted access site via right femoral and right radial but unable to pass abdominal aorta and right subclavian probably due to atherosclerosis. He will attempt again via left radial today. Continue aspirin. Continue heparin drip for possible ACS and for atrial fib anticoagulation. Subjective Date/time seen: 06/02/25 08:02 Interval history: Denies chest pain. States breathing is improving. Has some cough with sputum. Exam Const: General: cooperative, healthy appearing and comfortable Orientation/consciousness: oriented to person, oriented to place and oriented to time Resp: Auscultation: clear to auscultation bilaterally, no crackles, no rales, no rhonchi and no wheezes Cardio: Rate: regular rate Rhythm: abnormal rhythm Heart sounds: no murmurs Peripheral pulses: dorsalis pedis present Neuro: General: oriented to person, oriented to place and oriented to time Extrem: Right lower extremity: no edema Left lower extremity: no edema Objective Data Vital Signs Vital Signs: Vital Signs - 24 hr 06/01/25 08:10 06/01/25 08:25 06/01/25 09:59 Temperature 97.6 F Pulse Rate 84 71 84 Pulse Rate [Bilateral Pedal (Dorsalis Pedis) Palpation] Pulse Rate [Left Pedal (Dorsalis Pedis) Palpation] Respiratory Rate 16 20 Blood Pressure 111/67 Pulse Oximetry 98 Oxygen Delivery Oxygen Flow Rate 06/01/25 11:48 06/01/25 13:30 06/01/25 13:30 Temperature 97.8 F Pulse Rate 73 84 Pulse Rate [Bilateral Pedal (Dorsalis Pedis) Palpation] 84 Pulse Rate [Left Pedal (Dorsalis Pedis) Palpation] 84 Respiratory Rate 22 H 19 Blood Pressure 112/68 115/71 Pulse Oximetry 97 97 Oxygen Delivery Nasal Cannula Oxygen Flow Rate 2 06/01/25 13:45 06/01/25 13:45 06/01/25 14:00 Temperature Pulse Rate 85 Pulse Rate [Bilateral Pedal (Dorsalis Pedis) Palpation] 84 83 Pulse Rate [Left Pedal (Dorsalis Pedis) Palpation] 85 83 Respiratory Rate 19 Blood Pressure 120/72 Pulse Oximetry 94 Oxygen Delivery Nasal Cannula Oxygen Flow Rate 2 06/01/25 14:15 06/01/25 14:15 06/01/25 14:30 Temperature Pulse Rate 83 Pulse Rate [Bilateral Pedal (Dorsalis Pedis) Palpation] 83 87 Pulse Rate [Left Pedal (Dorsalis Pedis) Palpation] 83 87 Respiratory Rate 18 Blood Pressure 147/119 H Pulse Oximetry 96 Oxygen Delivery Nasal Cannula Oxygen Flow Rate 2 06/01/25 14:30 06/01/25 14:45 06/01/25 14:45 Temperature Pulse Rate 87 78 Pulse Rate [Bilateral Pedal (Dorsalis Pedis) Palpation] 79 Pulse Rate [Left Pedal (Dorsalis Pedis) Palpation] 79 Respiratory Rate 17 18 Blood Pressure 108/80 119/80 Pulse Oximetry 96 94 Oxygen Delivery Nasal Cannula Nasal Cannula Oxygen Flow Rate 2 2 06/01/25 15:00 06/01/25 15:00 06/01/25 15:15 Temperature Pulse Rate 80 Pulse Rate [Bilateral Pedal (Dorsalis Pedis) Palpation] 85 85 Pulse Rate [Left Pedal (Dorsalis Pedis) Palpation] 85 85 Respiratory Rate 16 Blood Pressure 109/73 Pulse Oximetry 95 Oxygen Delivery Nasal Cannula Oxygen Flow Rate 2 06/01/25 15:15 06/01/25 15:30 06/01/25 15:45 Temperature Pulse Rate 85 Pulse Rate [Bilateral Pedal (Dorsalis Pedis) Palpation] 90 85 Pulse Rate [Left Pedal (Dorsalis Pedis) Palpation] 90 85 Respiratory Rate 19 Blood Pressure 114/73 Pulse Oximetry 96 Oxygen Delivery Nasal Cannula Oxygen Flow Rate 2 06/01/25 15:45 06/01/25 16:00 06/01/25 16:00 Temperature Pulse Rate 83 84 Pulse Rate [Bilateral Pedal (Dorsalis Pedis) Palpation] 84 Pulse Rate [Left Pedal (Dorsalis Pedis) Palpation] 84 Respiratory Rate 18 21 H Blood Pressure 111/74 112/86 Pulse Oximetry 94 97 Oxygen Delivery Nasal Cannula Nasal Cannula Oxygen Flow Rate 2 2 06/01/25 16:15 06/01/25 16:15 06/01/25 16:30 Temperature Pulse Rate 86 Pulse Rate [Bilateral Pedal (Dorsalis Pedis) Palpation] 86 85 Pulse Rate [Left Pedal (Dorsalis Pedis) Palpation] 86 85 Respiratory Rate 26 H Blood Pressure 119/77 Pulse Oximetry 100 Oxygen Delivery Nasal Cannula Oxygen Flow Rate 2 06/01/25 16:30 06/01/25 16:45 06/01/25 16:45 Temperature Pulse Rate 86 83 Pulse Rate [Bilateral Pedal (Dorsalis Pedis) Palpation] 85 Pulse Rate [Left Pedal (Dorsalis Pedis) Palpation] 85 Respiratory Rate 20 20 Blood Pressure 108/72 115/79 Pulse Oximetry 96 95 Oxygen Delivery Nasal Cannula Nasal Cannula Oxygen Flow Rate 2 2 06/01/25 17:00 06/01/25 17:00 06/01/25 17:15 Temperature Pulse Rate 87 Pulse Rate [Bilateral Pedal (Dorsalis Pedis) Palpation] 90 77 Pulse Rate [Left Pedal (Dorsalis Pedis) Palpation] 90 77 Respiratory Rate 20 Blood Pressure 117/83 Pulse Oximetry 94 Oxygen Delivery Nasal Cannula Oxygen Flow Rate 2 06/01/25 17:15 06/01/25 17:45 06/01/25 17:45 Temperature Pulse Rate 85 86 Pulse Rate [Bilateral Pedal (Dorsalis Pedis) Palpation] 86 Pulse Rate [Left Pedal (Dorsalis Pedis) Palpation] 86 Respiratory Rate 21 H 20 Blood Pressure 118/72 121/79 Pulse Oximetry 96 94 Oxygen Delivery Nasal Cannula Nasal Cannula Oxygen Flow Rate 2 2 06/01/25 17:56 06/01/25 18:00 06/01/25 18:18 Temperature 97.8 F Pulse Rate 86 89 Pulse Rate [Bilateral Pedal (Dorsalis Pedis) Palpation] 86 Pulse Rate [Left Pedal (Dorsalis Pedis) Palpation] 86 Respiratory Rate 20 Blood Pressure 119/65 Pulse Oximetry 96 Oxygen Delivery Oxygen Flow Rate 06/01/25 18:56 06/01/25 20:00 06/01/25 20:00 Temperature Pulse Rate 84 Pulse Rate [Bilateral Pedal (Dorsalis Pedis) Palpation] 87 Pulse Rate [Left Pedal (Dorsalis Pedis) Palpation] 87 Respiratory Rate Blood Pressure Pulse Oximetry 99 Oxygen Delivery Nasal Cannula Oxygen Flow Rate 2 06/01/25 20:16 06/01/25 21:11 06/01/25 21:11 Temperature 98.1 F Pulse Rate 91 96 96 Pulse Rate [Bilateral Pedal (Dorsalis Pedis) Palpation] Pulse Rate [Left Pedal (Dorsalis Pedis) Palpation] Respiratory Rate 20 Blood Pressure 116/75 Pulse Oximetry 93 Oxygen Delivery Oxygen Flow Rate 06/01/25 21:23 06/01/25 21:24 06/01/25 21:33 Temperature Pulse Rate 83 86 Pulse Rate [Bilateral Pedal (Dorsalis Pedis) Palpation] Pulse Rate [Left Pedal (Dorsalis Pedis) Palpation] Respiratory Rate 16 16 Blood Pressure Pulse Oximetry 95 Oxygen Delivery Nasal Cannula Oxygen Flow Rate 2 06/01/25 22:00 06/01/25 23:15 06/02/25 00:00 Temperature 98.7 F Pulse Rate 109 H 94 86 Pulse Rate [Bilateral Pedal (Dorsalis Pedis) Palpation] Pulse Rate [Left Pedal (Dorsalis Pedis) Palpation] Respiratory Rate 18 Blood Pressure 109/69 Pulse Oximetry 99 Oxygen Delivery Oxygen Flow Rate 06/02/25 00:00 06/02/25 01:45 06/02/25 02:00 Temperature Pulse Rate 88 91 Pulse Rate [Bilateral Pedal (Dorsalis Pedis) Palpation] Pulse Rate [Left Pedal (Dorsalis Pedis) Palpation] Respiratory Rate 16 Blood Pressure Pulse Oximetry 99 Oxygen Delivery Nasal Cannula Oxygen Flow Rate 2 06/02/25 03:45 06/02/25 04:00 06/02/25 04:07 Temperature 98.7 F Pulse Rate 87 88 Pulse Rate [Bilateral Pedal (Dorsalis Pedis) Palpation] Pulse Rate [Left Pedal (Dorsalis Pedis) Palpation] Respiratory Rate 18 Blood Pressure 110/68 Pulse Oximetry 98 98 Oxygen Delivery Nasal Cannula Oxygen Flow Rate 2 06/02/25 06:00 Temperature Pulse Rate 87 Pulse Rate [Bilateral Pedal (Dorsalis Pedis) Palpation] Pulse Rate [Left Pedal (Dorsalis Pedis) Palpation] Respiratory Rate Blood Pressure Pulse Oximetry Oxygen Delivery Oxygen Flow Rate Intake/Output Intake/Output: Intake & Output 05/30/25 05/31/25 06/01/25 06/02/25 23:59 23:59 23:59 23:59 Intake Total 1582.1 1447.1 1109.4 644.9 Output Total 700 2125 1230 975 Balance 882.1 -677.9 -120.6 -330.1 Meds/Results Medications: Active Medications Generic Name Dose Route Start Last Admin Trade Name Freq PRN Reason Stop Dose Admin Acetaminophen 650 mg 05/27/25 23:08 05/29/25 10:37 Acetaminophen 325 Mg Tablet PO 650 mg Q4H PRN Administration Mild Pain (1-3) or Fever Hydrocodone Bitart/Acetaminophen 1 tab 05/28/25 03:53 Hydrocodone/Acetaminophen (*Crx) 7.5-325 Mg Tablet PO Q6H PRN pain 4-10 Albuterol 2 puff 05/28/25 22:11 05/30/25 10:28 Albuterol Sulfate (*Sp) Aerosol 1 Puff INHALATION 2 puff Q6H PRN Administration shortness of breath or wheezing Albuterol/Ipratropium 3 ml 05/30/25 20:00 06/02/25 01:44 Ipratropium 0.5 Mg/Albuterol Sulfate 2.5 Mg Ampul.Neb 3 Ml INHALATION 3 ml Q6HRT BERNARDA Administration Amiodarone HCl 200 mg 05/28/25 21:00 06/01/25 21:11 Amiodarone Hcl 200 Mg Tablet PO 200 mg Q12HR BERNARDA Administration Amoxicillin/Clavulanate Potassium 1 tablet 06/01/25 21:00 06/01/25 21:11 Amoxicillin/Clavulanate K 875-125 Mg Tab PO 06/04/25 20:59 1 tablet Q12HR BERNARDA Administration Aspirin 81 mg 05/28/25 09:00 06/01/25 09:59 Aspirin 81 Mg Enteric Tablet PO 81 mg QAM BERNARDA Administration Calcium Carbonate 400 mg 05/28/25 03:52 Calcium Carbonate (Tums) 500 Mg (200 Mg Elemental) PO Q6H PRN Indigestion Cyanocobalamin 500 mcg 05/28/25 09:00 06/01/25 10:01 Cyanocobalamin 500 Mcg Tablet PO 500 mcg DAILY BERNARDA Administration Digoxin 125 mcg 05/28/25 09:00 06/01/25 10:01 Digoxin Tab 125 Mcg Tablet PO 125 mcg QAM BERNARDA Administration Empagliflozin 10 mg 05/29/25 09:00 06/01/25 10:01 Empagliflozin 10 Mg Tablet PO 10 mg DAILY BERNARDA Administration Fish Oil 1 gm 05/28/25 09:00 06/01/25 09:59 [place] 3 Polyunsat Fatty Acids 1 Gm Cap PO 1 gm DAILY BERNARDA Administration Furosemide 20 mg 05/29/25 09:00 06/01/25 10:00 Furosemide 20 Mg Tablet PO 20 mg DAILY BERNARDA Administration Guaifenesin 600 mg 05/30/25 21:00 06/01/25 21:11 Guaifenesin 12 Hr 600 Mg Tabcr PO 600 mg Q12HR BERNARDA Administration Heparin Sodium (Porcine) 4,000 units 05/27/25 23:04 05/28/25 18:30 Heparin Sodium 5,000 Units/Ml Vial IV PUSH 4,000 units PRN PRN Administration aPTT less than 55 seconds Heparin Sodium (Porcine) 3,000 units 05/27/25 23:04 06/02/25 01:32 Heparin Sodium 5,000 Units/Ml Vial IV PUSH 3,000 units PRN PRN Administration aPTT 55 - 70 seconds Heparin Sodium/Dextrose 25,000 units in 250 mls @ 14 mls/hr 05/27/25 23:05 06/02/25 01:33 Heparin Sodium/D5w 100 Units/Ml IV CONT 1,400 units/hr .[id number] BERNARDA 14 mls/hr Titration Protocol 1,400 UNITS/HR Lactobacillus Acidophilus 1 tablet 05/28/25 09:00 06/01/25 10:00 Acidophilus/Bulgar[place] Chewable Tablet BY MOUTH 1 tablet DAILY BERNARDA Administration Melatonin 3 mg 05/29/25 22:03 06/02/25 01:38 Melatonin 3 Mg Tablet PO 3 mg HS PRN Administration Insomnia Metoprolol Succinate 100 mg 05/28/25 21:00 06/01/25 21:11 Metoprolol Succinate Ext Rel 100 Mg Tabcr PO 100 mg QHS BERNARDA Administration Multivitamins Therapeutic 1 tablet 05/28/25 09:00 06/01/25 10:00 Multivitamins Therapeutic Tab (*Bkc) PO 1 tablet DAILY BERNARDA Administration Ondansetron HCl 4 mg 05/27/25 23:08 Ondansetron Inj 4 Mg/2 Ml Vial IV PUSH Q4H PRN Nausea Tamsulosin HCl 0.4 mg 05/28/25 21:00 06/01/25 21:11 Tamsulosin Hcl 0.4 Mg Capsule PO 0.4 mg QHS BERNARDA Administration Umeclidinium Encinal 1 puff 05/28/25 08:00 06/01/25 07:56 Umeclidinium Encinal 62.5 Mcg Ellipta INHALATION 1 puff DAILYRT BERNARDA Administration Radiology Results: ITS Impressions Chest X-Ray 05/27/25 22:43 IMPRESSION: Trace bilateral pleural effusions with adjacent compressive atelectasis. Chest/Abdomen/Pelvis CTA 05/27/25 22:44 IMPRESSION: No pulmonary embolus. No aortic dissection. Small bilateral pleural effusions with adjacent compressive atelectasis. Gallbladder distention with mural thickening and trace surrounding inflammatory change, which may be related to vascular congestion and fluid overload rather than inflammatory gallbladder disease, for which clinical (and serologic) correlation is needed. Internal Auditory Canal CT 05/28/25 08:21 IMPRESSION: No definite abnormality seen in both temporal bones. Renal Ultrasound 05/28/25 21:32 IMPRESSION: No hydronephrosis or renal calculi. No findings to suggest medical renal disease. Simple cyst within the interpolar region of the right kidney, for which no further follow-up is needed. Abdomen Ultrasound 05/29/25 12:51 IMPRESSION: 1. Cholelithiasis and prominent edematous-appearing gallbladder wall thickening but with negative sonographic Snowden's sign which is equivocal for acute cholecystitis. No significant surrounding infiltration and was evident on the prior CT and the gallbladder wall thickening could potentially also be secondary to heart failure, liver disease, renal failure or other generalized edema forming states. Could consider HIDA scan for further evaluation as clinically indicated. Labs Labs: Laboratory Results - last 24 hr 06/02/25 06/02/25 06/02/25 01:09 04:04 07:18 WBC 11.7 H RBC 3.96 L Hgb 12.4 L Hct 38.2 L MCV 96.5 MCH 31.3 MCHC 32.5 RDW 16.4 H Plt Count 151 MPV 12.2 H Immature Gran % (Auto) 0.4 Neut % (Auto) 54.0 Lymph % (Auto) 25.9 [place] % (Auto) 11.1 H Eos % (Auto) 8.1 H Baso % (Auto) 0.5 Lymph # (Auto) 3.02 [place] # (Auto) 1.3 H Eos # (Auto) 1.0 H Baso # (Auto) 0.1 Abs Immat Gran (auto) 0.05 H Absolute Neuts (auto) 6.3 Absolute Nucleated RBC 0.000 Nucleated RBC % 0.0 APTT 70.0 H 160.7 H* Sodium 134 L Potassium 4.1 Chloride 98 Carbon Dioxide 29 Anion Gap 7 BUN 29 H Creatinine 1.48 H Estim Creat Clear Calc 36 Estimated GFR 46 L Glucose 191 H Calcium 8.1 L Magnesium 2.0 Total Bilirubin 0.5 AST 34 ALT 29 Alkaline Phosphatase 51 Total Protein 5.9 L Albumin 3.0 L
[2025-06-02] MEDS: guaiFENesin 12 HR 600 MG TABCR PO ×2 (09:20→20:47)
[2025-06-02] MEDS: AMIODARONE HCL 200 MG TABLET PO ×2 (09:20→20:47)
[2025-06-02] MEDS: DIGOXIN TAB 125 MCG TABLET PO (09:21)
[2025-06-02] MEDS: ASPIRIN 81 MG ENTERIC TABLET PO (09:21)
--- NOTE | 2025-06-02 09:28 | WPDMODSED ---
Moderate Sedation Note-Pt Data Patient Data Diagnosis: Systolic heart failure Cardiomyopathy NSTEMI Procedure to be performed/Plan: Left heart catheterization Coronary angiography Allergies Allergy/AdvReac Type Severity Reaction Status Date / Time No Known Allergies Allergy Unknown Verified 07/01/24 10:25 Home Medications ?Medication ?Instructions ?Recorded ?Confirmed ?Type adalimumab 40 mg/0.8 mL See Rx Instructions subcut .COMPLEX 01/13/20 05/28/25 History subcutaneous syringe kit (Humira) multivitamin 1 tablet PO DAILY 01/09/23 05/28/25 History apixaban 2.5 mg tablet (Eliquis) See Rx Instructions .Route 09/30/24 05/28/25 Rx .COMPLEX #60 tabs L.acid,par,plant,rham-B.anim,bif,brev,inf,long 1 cap PO DAILY 05/02/25 05/28/25 History 30 billion cell capsule ([employer]) aspirin 81 mg capsule 81 mg PO DAILY 05/02/25 05/28/25 History cyanocobalamin (vitamin B-12) 500 500 mcg PO DAILY 05/02/25 05/28/25 History mcg tablet (B-12 DOTS) omega 1-pfw-yyu-fish oil 1,200 mg 1 cap PO DAILY 05/02/25 05/28/25 History (144 mg-216 mg) capsule (Fish Oil) tamsulosin 0.4 mg capsule 0.4 mg PO QHS 05/06/25 05/28/25 History calcium carbonate 400 mg (0.8 x 500 mg calcium 05/08/25 05/28/25 Rx (1,250 mg)) PO Q6H PRN Indigestion #30 tabs digoxin 125 mcg (0.125 mg) tablet 125 mcg PO QAM #30 tabs 05/08/25 05/28/25 Rx diltiazem HCl 180 mg 360 mg (2 x 180 mg) BYMOUTH DAILY 05/08/25 05/28/25 Rx capsule,extended release 24 hr, #30 caps controlled metoprolol succinate 100 mg 100 mg PO QHS #30 tabs 05/08/25 05/28/25 Rx tablet,extended release 24 hr (Toprol XL) umeclidinium 62.5 mcg/actuation 62.5 mcg inhalation DAILYRT #30 ea 05/08/25 05/28/25 Rx blister powder for inhalation (Incruse Ellipta) hydrocodone 7.5 mg-acetaminophen 1 tablet PO Q6H PRN pain #110 tabs 05/10/25 05/28/25 Rx 325 mg tablet albuterol sulfate 90 mcg/actuation 2 puff inhalation Q6H PRN 05/28/25 05/28/25 History aerosol inhaler shortness of breath or wheezing Current Medications: Active Medications Acetaminophen (Acetaminophen 325 Mg Tablet) 650 mg PO Q4H PRN PRN Reason: Mild Pain (1-3) or Fever Last Admin: 05/29/25 10:37 Dose: 650 mg Hydrocodone Bitart/Acetaminophen (Hydrocodone/Acetaminophen (*Crx) 7.5-325 Mg Tablet) 1 tab PO Q6H PRN PRN Reason: pain 4-10 Albuterol (Albuterol Sulfate (*Sp) Aerosol 1 Puff) 2 puff INHALATION Q6H PRN PRN Reason: shortness of breath or wheezing Last Admin: 05/30/25 10:28 Dose: 2 puff Albuterol/Ipratropium (Ipratropium 0.5 Mg/Albuterol Sulfate 2.5 Mg Ampul.Neb 3 Ml) 3 ml INHALATION Q6HRT [facility] Last Admin: 06/02/25 08:18 Dose: 3 ml Amiodarone HCl (Amiodarone Hcl 200 Mg Tablet) 200 mg PO Q12HR [facility] Last Admin: 06/02/25 09:20 Dose: 200 mg Amoxicillin/Clavulanate Potassium (Amoxicillin/Clavulanate K 875-125 Mg Tab) 1 tablet PO Q12HR [facility] Stop: 06/04/25 20:59 Last Admin: 06/01/25 21:11 Dose: 1 tablet Aspirin (Aspirin 81 Mg Enteric Tablet) 81 mg PO QAM [facility] Last Admin: 06/02/25 09:21 Dose: 81 mg Calcium Carbonate (Calcium Carbonate (Tums) 500 Mg (200 Mg Elemental)) 400 mg PO Q6H PRN PRN Reason: Indigestion Cyanocobalamin (Cyanocobalamin 500 Mcg Tablet) 500 mcg PO DAILY [facility] Last Admin: 06/01/25 10:01 Dose: 500 mcg Digoxin (Digoxin Tab 125 Mcg Tablet) 125 mcg PO QAM [facility] Last Admin: 06/02/25 09:21 Dose: 125 mcg Empagliflozin (Empagliflozin 10 Mg Tablet) 10 mg PO DAILY [facility] Last Admin: 06/01/25 10:01 Dose: 10 mg Fish Oil ([place] 3 Polyunsat Fatty Acids 1 Gm Cap) 1 gm PO DAILY [facility] Last Admin: 06/01/25 09:59 Dose: 1 gm Furosemide (Furosemide 20 Mg Tablet) 20 mg PO DAILY [facility] Last Admin: 06/01/25 10:00 Dose: 20 mg Guaifenesin (Guaifenesin 12 Hr 600 Mg Tabcr) 600 mg PO Q12HR [facility] Last Admin: 06/02/25 09:20 Dose: 600 mg Heparin Sodium (Porcine) (Heparin Sodium 5,000 Units/Ml Vial) 4,000 units IV PUSH PRN PRN PRN Reason: aPTT less than 55 seconds Last Admin: 05/28/25 18:30 Dose: 4,000 units Heparin Sodium (Porcine) (Heparin Sodium 5,000 Units/Ml Vial) 3,000 units IV PUSH PRN PRN PRN Reason: aPTT 55 - 70 seconds Last Admin: 06/02/25 01:32 Dose: 3,000 units Heparin Sodium/Dextrose (Heparin Sodium/D5w 100 Units/Ml) 25,000 units in 250 mls @ 12 mls/hr IV CONT .[id number] [facility]; Protocol Last Titration: 06/02/25 09:10 Dose: 1,200 units/hr, 12 mls/hr Lactobacillus Acidophilus (Acidophilus/Bulgaricus Chewable Tablet) 1 tablet BY MOUTH DAILY [facility] Last Admin: 06/01/25 10:00 Dose: 1 tablet Melatonin (Melatonin 3 Mg Tablet) 3 mg PO HS PRN PRN Reason: Insomnia Last Admin: 06/02/25 01:38 Dose: 3 mg Metoprolol Succinate (Metoprolol Succinate Ext Rel 100 Mg Tabcr) 100 mg PO QHS [facility] Last Admin: 06/01/25 21:11 Dose: 100 mg Multivitamins Therapeutic (Multivitamins Therapeutic Tab (*Bkc)) 1 tablet PO DAILY [facility] Last Admin: 06/01/25 10:00 Dose: 1 tablet Ondansetron HCl (Ondansetron Inj 4 Mg/2 Ml Vial) 4 mg IV PUSH Q4H PRN PRN Reason: Nausea Tamsulosin HCl (Tamsulosin Hcl 0.4 Mg Capsule) 0.4 mg PO QHS [facility] Last Admin: 06/01/25 21:11 Dose: 0.4 mg Umeclidinium [place] (Umeclidinium [place] 62.5 Mcg Ellipta) [facility] Last Admin: 06/01/25 07:56 Dose: 1 puff Sedation/Anesthesia: No previous sedation/anesthesia problems (including family history). [facility] Past Medical History Medical History (Updated 05/29/25 @ 08:15 by Ezequiel Hutchinson DO) Heart failure with preserved ejection fraction Chronic obstructive pulmonary disease Prediabetes Atrial fibrillation Lung nodules Umbilical hernia Brain aneurysm Enlarged prostate with lower urinary tract symptoms (LUTS) Essential (primary) hypertension Obstructive sleep apnea (adult) (pediatric) Other psoriatic arthropathy Polyosteoarthritis, unspecified Psoriasis vulgaris Vitamin D deficiency Surgical History Surgical History (Updated 05/28/25 @ 06:24 by Sherin Barraza PA-C) History of arthroscopic knee surgery S/P coil embolization of cerebral aneurysm per CT 05/27/25 interpretation Family History Family History Father Diabetes mellitus Family history of diabetes mellitus in first degree relative, Onset Age: 62 Patient's father is Mother Family history of heart disease in male family member before age 55, Onset Age: 81 Family history of cardiovascular disease Patient's mother is Sibling History of open heart surgery Social History Social History (Updated 05/28/25 @ 06:25 by Sherin Barraza PA-C) Social History: Surrogate medical decision maker: Maura Castillo, daughter. Code status: Full code. Smoking packs per day: 2 Smoking cigarettes per day: 40.0 Years smoked: 40 Smoking pack-years: 80.00 Smoking status: Former smoker Tobacco type: cigarettes, cigars and e-cigarettes/vaping Second hand tobacco smoke exposure: Yes Smoking end date: 12/02/16 Alcohol intake: current Drinks per week: 1 Substance use: current Substance use type: marijuana Other substance usage details: COUPLE TIMES A WEEK Do You Feel Safe in your Home?: Yes Lack of Transportation: YES Lack of Food: Never True Current Housing: I Have Housing Concerned About Future Housing: No Difficulty Paying Gas/Electric Bills: No Difficulty Paying for Meds: No Currently Unemployed: No Education: Grade School Difficulty w/ Childcare or Family Care: No Living arrangements: with family Spiritual care concerns: No Mod Sed Physical Exam Physical Exam Pre Procedural Exam: Normal: Appearance, Eyes, Ears, Nose, Neck, Throat, Airway, Lungs, Heart Size, Heart Rate, Heart Rhythm, Neuro Exam, Abdomen, Liver, Kidneys, Spleen, Breasts, Genitalia, Extremities and Skin Hours since solid foods: 12 Hours since liquid intake: 12 Mallampati Classification: class II Internal Medicine - PN: Obj Da Vital Signs Vital Signs: Vital Signs - 24 hr 06/01/25 09:59 06/01/25 11:48 06/01/25 13:30 Temperature 36.6 C Pulse Rate 84 73 Pulse Rate [Bilateral Pedal (Dorsalis Pedis) Palpation] 84 Pulse Rate [Left Pedal (Dorsalis Pedis) Palpation] 84 Respiratory Rate 22 H Blood Pressure 112/68 Pulse Oximetry 97 Oxygen Delivery Oxygen Flow Rate 06/01/25 13:30 06/01/25 13:45 06/01/25 13:45 Temperature Pulse Rate 84 85 Pulse Rate [Bilateral Pedal (Dorsalis Pedis) Palpation] 84 Pulse Rate [Left Pedal (Dorsalis Pedis) Palpation] 85 Respiratory Rate 19 19 Blood Pressure 115/71 120/72 Pulse Oximetry 97 94 Oxygen Delivery Nasal Cannula Nasal Cannula Oxygen Flow Rate 2 2 06/01/25 14:00 06/01/25 14:15 06/01/25 14:15 Temperature Pulse Rate 83 Pulse Rate [Bilateral Pedal (Dorsalis Pedis) Palpation] 83 83 Pulse Rate [Left Pedal (Dorsalis Pedis) Palpation] 83 83 Respiratory Rate 18 Blood Pressure 147/119 H Pulse Oximetry 96 Oxygen Delivery Nasal Cannula Oxygen Flow Rate 2 06/01/25 14:30 06/01/25 14:30 06/01/25 14:45 Temperature Pulse Rate 87 Pulse Rate [Bilateral Pedal (Dorsalis Pedis) Palpation] 87 79 Pulse Rate [Left Pedal (Dorsalis Pedis) Palpation] 87 79 Respiratory Rate 17 Blood Pressure 108/80 Pulse Oximetry 96 Oxygen Delivery Nasal Cannula Oxygen Flow Rate 2 06/01/25 14:45 06/01/25 15:00 06/01/25 15:00 Temperature Pulse Rate 78 80 Pulse Rate [Bilateral Pedal (Dorsalis Pedis) Palpation] 85 Pulse Rate [Left Pedal (Dorsalis Pedis) Palpation] 85 Respiratory Rate 18 16 Blood Pressure 119/80 109/73 Pulse Oximetry 94 95 Oxygen Delivery Nasal Cannula Nasal Cannula Oxygen Flow Rate 2 2 06/01/25 15:15 06/01/25 15:15 06/01/25 15:30 Temperature Pulse Rate 85 Pulse Rate [Bilateral Pedal (Dorsalis Pedis) Palpation] 85 90 Pulse Rate [Left Pedal (Dorsalis Pedis) Palpation] 85 90 Respiratory Rate 19 Blood Pressure 114/73 Pulse Oximetry 96 Oxygen Delivery Nasal Cannula Oxygen Flow Rate 2 06/01/25 15:45 06/01/25 15:45 06/01/25 16:00 Temperature Pulse Rate 83 Pulse Rate [Bilateral Pedal (Dorsalis Pedis) Palpation] 85 84 Pulse Rate [Left Pedal (Dorsalis Pedis) Palpation] 85 84 Respiratory Rate 18 Blood Pressure 111/74 Pulse Oximetry 94 Oxygen Delivery Nasal Cannula Oxygen Flow Rate 2 06/01/25 16:00 06/01/25 16:15 06/01/25 16:15 Temperature Pulse Rate 84 86 Pulse Rate [Bilateral Pedal (Dorsalis Pedis) Palpation] 86 Pulse Rate [Left Pedal (Dorsalis Pedis) Palpation] 86 Respiratory Rate 21 H 26 H Blood Pressure 112/86 119/77 Pulse Oximetry 97 100 Oxygen Delivery Nasal Cannula Nasal Cannula Oxygen Flow Rate 2 2 06/01/25 16:30 06/01/25 16:30 06/01/25 16:45 Temperature Pulse Rate 86 Pulse Rate [Bilateral Pedal (Dorsalis Pedis) Palpation] 85 85 Pulse Rate [Left Pedal (Dorsalis Pedis) Palpation] 85 85 Respiratory Rate 20 Blood Pressure 108/72 Pulse Oximetry 96 Oxygen Delivery Nasal Cannula Oxygen Flow Rate 2 06/01/25 16:45 06/01/25 17:00 06/01/25 17:00 Temperature Pulse Rate 83 87 Pulse Rate [Bilateral Pedal (Dorsalis Pedis) Palpation] 90 Pulse Rate [Left Pedal (Dorsalis Pedis) Palpation] 90 Respiratory Rate 20 20 Blood Pressure 115/79 117/83 Pulse Oximetry 95 94 Oxygen Delivery Nasal Cannula Nasal Cannula Oxygen Flow Rate 2 2 06/01/25 17:15 06/01/25 17:15 06/01/25 17:45 Temperature Pulse Rate 85 Pulse Rate [Bilateral Pedal (Dorsalis Pedis) Palpation] 77 86 Pulse Rate [Left Pedal (Dorsalis Pedis) Palpation] 77 86 Respiratory Rate 21 H Blood Pressure 118/72 Pulse Oximetry 96 Oxygen Delivery Nasal Cannula Oxygen Flow Rate 2 06/01/25 17:45 06/01/25 17:56 06/01/25 18:00 Temperature Pulse Rate 86 86 Pulse Rate [Bilateral Pedal (Dorsalis Pedis) Palpation] 86 Pulse Rate [Left Pedal (Dorsalis Pedis) Palpation] 86 Respiratory Rate 20 Blood Pressure 121/79 Pulse Oximetry 94 Oxygen Delivery Nasal Cannula Oxygen Flow Rate 2 06/01/25 18:18 06/01/25 18:56 06/01/25 20:00 Temperature 36.6 C Pulse Rate 89 Pulse Rate [Bilateral Pedal (Dorsalis Pedis) Palpation] 87 Pulse Rate [Left Pedal (Dorsalis Pedis) Palpation] 87 Respiratory Rate 20 Blood Pressure 119/65 Pulse Oximetry 96 99 Oxygen Delivery Nasal Cannula Oxygen Flow Rate 2 06/01/25 20:00 06/01/25 20:16 06/01/25 21:11 Temperature 36.7 C Pulse Rate 84 91 96 Pulse Rate [Bilateral Pedal (Dorsalis Pedis) Palpation] Pulse Rate [Left Pedal (Dorsalis Pedis) Palpation] Respiratory Rate 20 Blood Pressure 116/75 Pulse Oximetry 93 Oxygen Delivery Oxygen Flow Rate 06/01/25 21:11 06/01/25 21:23 06/01/25 21:24 Temperature Pulse Rate 96 83 Pulse Rate [Bilateral Pedal (Dorsalis Pedis) Palpation] Pulse Rate [Left Pedal (Dorsalis Pedis) Palpation] Respiratory Rate 16 Blood Pressure Pulse Oximetry 95 Oxygen Delivery Nasal Cannula Oxygen Flow Rate 2 06/01/25 21:33 06/01/25 22:00 06/01/25 23:15 Temperature 37.1 C Pulse Rate 86 109 H 94 Pulse Rate [Bilateral Pedal (Dorsalis Pedis) Palpation] Pulse Rate [Left Pedal (Dorsalis Pedis) Palpation] Respiratory Rate 16 18 Blood Pressure 109/69 Pulse Oximetry 99 Oxygen Delivery Oxygen Flow Rate 06/02/25 00:00 06/02/25 00:00 06/02/25 01:45 Temperature Pulse Rate 86 88 Pulse Rate [Bilateral Pedal (Dorsalis Pedis) Palpation] Pulse Rate [Left Pedal (Dorsalis Pedis) Palpation] Respiratory Rate 16 Blood Pressure Pulse Oximetry 99 Oxygen Delivery Nasal Cannula Oxygen Flow Rate 2 06/02/25 02:00 06/02/25 03:45 06/02/25 04:00 Temperature Pulse Rate 91 87 Pulse Rate [Bilateral Pedal (Dorsalis Pedis) Palpation] Pulse Rate [Left Pedal (Dorsalis Pedis) Palpation] Respiratory Rate Blood Pressure Pulse Oximetry 98 Oxygen Delivery Nasal Cannula Oxygen Flow Rate 2 06/02/25 04:07 06/02/25 06:00 06/02/25 08:13 Temperature 37.1 C 36.6 C Pulse Rate 88 87 101 H Pulse Rate [Bilateral Pedal (Dorsalis Pedis) Palpation] Pulse Rate [Left Pedal (Dorsalis Pedis) Palpation] Respiratory Rate 18 20 Blood Pressure 110/68 118/78 Pulse Oximetry 98 96 Oxygen Delivery Oxygen Flow Rate 06/02/25 08:18 06/02/25 08:18 06/02/25 08:31 Temperature Pulse Rate 93 78 Pulse Rate [Bilateral Pedal (Dorsalis Pedis) Palpation] Pulse Rate [Left Pedal (Dorsalis Pedis) Palpation] Respiratory Rate 20 20 Blood Pressure Pulse Oximetry 96 Oxygen Delivery Nasal Cannula Oxygen Flow Rate 2 06/02/25 09:20 06/02/25 09:21 Temperature Pulse Rate 95 87 Pulse Rate [Bilateral Pedal (Dorsalis Pedis) Palpation] Pulse Rate [Left Pedal (Dorsalis Pedis) Palpation] Respiratory Rate Blood Pressure Pulse Oximetry Oxygen Delivery Oxygen Flow Rate Intake/Output Intake/Output: Intake & Output 05/30/25 05/31/25 06/01/25 06/02/25 23:59 23:59 23:59 23:59 Intake Total 1582.1 1447.1 1109.4 733.3 Output Total 700 2125 1230 975 Balance 882.1 -677.9 -120.6 -241.7 Meds/Results Medications: Active Medications Generic Name Dose Route Start Last Admin Trade Name Freq PRN Reason Stop Dose Admin Acetaminophen 650 mg 05/27/25 23:08 05/29/25 10:37 Acetaminophen 325 Mg Tablet PO 650 mg Q4H PRN Administration Mild Pain (1-3) or Fever Hydrocodone Bitart/Acetaminophen 1 tab 05/28/25 03:53 Hydrocodone/Acetaminophen (*Crx) 7.5-325 Mg Tablet PO Q6H PRN pain 4-10 Albuterol 2 puff 05/28/25 22:11 05/30/25 10:28 Albuterol Sulfate (*Sp) Aerosol 1 Puff INHALATION 2 puff Q6H PRN Administration shortness of breath or wheezing Albuterol/Ipratropium 3 ml 05/30/25 20:00 06/02/25 08:18 Ipratropium 0.5 Mg/Albuterol Sulfate 2.5 Mg Ampul.Neb 3 Ml INHALATION 3 ml Q6HRT B[facility]ARDA Administration Amiodarone HCl 200 mg 05/28/25 21:00 06/02/25 09:20 Amiodarone Hcl 200 Mg Tablet PO 200 mg Q12HR [facility] Administration Amoxicillin/Clavulanate Potassium 1 tablet 06/01/25 21:00 06/01/25 21:11 Amoxicillin/Clavulanate K 875-125 Mg Tab PO 06/04/25 20:59 1 tablet Q12HR [facility] Administration Aspirin 81 mg 05/28/25 09:00 06/02/25 09:21 Aspirin 81 Mg Enteric Tablet PO 81 mg QAM [facility] Administration Calcium Carbonate 400 mg 05/28/25 03:52 Calcium Carbonate (Tums) 500 Mg (200 Mg Elemental) PO Q6H PRN Indigestion Cyanocobalamin 500 mcg 05/28/25 09:00 06/01/25 10:01 Cyanocobalamin 500 Mcg Tablet PO 500 mcg DAILY [facility] Administration Digoxin 125 mcg 05/28/25 09:00 06/02/25 09:21 Digoxin Tab 125 Mcg Tablet PO 125 mcg QAM [facility] Administration Empagliflozin 10 mg 05/29/25 09:00 06/01/25 10:01 Empagliflozin 10 Mg Tablet PO 10 mg DAILY [facility] Administration Fish Oil 1 gm 05/28/25 09:00 06/01/25 09:59 [place] 3 Polyunsat Fatty Acids 1 Gm Cap PO 1 gm DAILY [facility] Administration Furosemide 20 mg 05/29/25 09:00 06/01/25 10:00 Furosemide 20 Mg Tablet PO 20 mg DAILY [facility] Administration Guaifenesin 600 mg 05/30/25 21:00 06/02/25 09:20 Guaifenesin 12 Hr 600 Mg Tabcr PO 600 mg Q12HR [facility] Administration Heparin Sodium (Porcine) 4,000 units 05/27/25 23:04 05/28/25 18:30 Heparin Sodium 5,000 Units/Ml Vial IV PUSH 4,000 units PRN PRN Administration aPTT less than 55 seconds Heparin Sodium (Porcine) 3,000 units 05/27/25 23:04 06/02/25 01:32 Heparin Sodium 5,000 Units/Ml Vial IV PUSH 3,000 units PRN PRN Administration aPTT 55 - 70 seconds Heparin Sodium/Dextrose 25,000 units in 250 mls @ 12 mls/hr 05/27/25 23:05 06/02/25 09:10 Heparin Sodium/D5w 100 Units/Ml IV CONT 1,200 units/hr .[id number] B[facility] 12 mls/hr Titration Protocol 1,200 UNITS/HR Lactobacillus Acidophilus 1 tablet 05/28/25 09:00 06/01/25 10:00 Acidophilus/Bulgaricus Chewable Tablet BY MOUTH 1 tablet DAILY [facility] Administration Melatonin 3 mg 05/29/25 22:03 06/02/25 01:38 Melatonin 3 Mg Tablet PO 3 mg HS PRN Administration Insomnia Metoprolol Succinate 100 mg 05/28/25 21:00 06/01/25 21:11 Metoprolol Succinate Ext Rel 100 Mg Tabcr PO 100 mg QHS [facility] Administration Multivitamins Therapeutic 1 tablet 05/28/25 09:00 06/01/25 10:00 Multivitamins Therapeutic Tab (*Bkc) PO 1 tablet DAILY [facility] Administration Ondansetron HCl 4 mg 05/27/25 23:08 Ondansetron Inj 4 Mg/2 Ml Vial IV PUSH Q4H PRN Nausea Tamsulosin HCl 0.4 mg 05/28/25 21:00 06/01/25 21:11 Tamsulosin Hcl 0.4 Mg Capsule PO 0.4 mg QHS B[facility]DA Administration Umeclidinium [place] 1 puff 05/28/25 08:00 06/01/25 07:56 Umeclidinium [place] 62.5 Mcg Ellipta INHALATION 1 puff DAILYRT [facility]DA Administration Radiology Results: ITS Impressions Chest X-Ray 05/27/25 22:43 IMPRESSION: Trace bilateral pleural effusions with adjacent compressive atelectasis. Chest/Abdomen/Pelvis CTA 05/27/25 22:44 IMPRESSION: No pulmonary embolus. No aortic dissection. Small bilateral pleural effusions with adjacent compressive atelectasis. Gallbladder distention with mural thickening and trace surrounding inflammatory change, which may be related to vascular congestion and fluid overload rather than inflammatory gallbladder disease, for which clinical (and serologic) correlation is needed. Internal Auditory Canal CT 05/28/25 08:21 IMPRESSION: No definite abnormality seen in both temporal bones. Renal Ultrasound 05/28/25 21:32 IMPRESSION: No hydronephrosis or renal calculi. No findings to suggest medical renal disease. Simple cyst within the interpolar region of the right kidney, for which no further follow-up is needed. Abdomen Ultrasound 05/29/25 12:51 IMPRESSION: 1. Cholelithiasis and prominent edematous-appearing gallbladder wall thickening but with negative sonographic Snowden's sign which is equivocal for acute cholecystitis. No significant surrounding infiltration and was evident on the prior CT and the gallbladder wall thickening could potentially also be secondary to heart failure, liver disease, renal failure or other generalized edema forming states. Could consider HIDA scan for further evaluation as clinically indicated. Labs 06/02/25 04:04 06/02/25 04:04 Labs: Laboratory Results - last 24 hr 06/02/25 06/02/25 06/02/25 01:09 04:04 07:18 WBC 11.7 H RBC 3.96 L Hgb 12.4 L Hct 38.2 L MCV 96.5 MCH 31.3 MCHC 32.5 RDW 16.4 H Plt Count 151 MPV 12.2 H Immature Gran % (Auto) 0.4 Neut % (Auto) 54.0 Lymph % (Auto) 25.9 [place] % (Auto) 11.1 H Eos % (Auto) 8.1 H Baso % (Auto) 0.5 Lymph # (Auto) 3.02 [place] # (Auto) 1.3 H Eos # (Auto) 1.0 H Baso # (Auto) 0.1 Abs Immat Gran (auto) 0.05 H Absolute Neuts (auto) 6.3 Absolute Nucleated RBC 0.000 Nucleated RBC % 0.0 APTT 70.0 H 160.7 H* Sodium 134 L Potassium 4.1 Chloride 98 Carbon Dioxide 29 Anion Gap 7 BUN 29 H Creatinine 1.48 H Estim Creat Clear Calc 36 Estimated GFR 46 L Glucose 191 H Calcium 8.1 L Magnesium 2.0 Total Bilirubin 0.5 AST 34 ALT 29 Alkaline Phosphatase 51 Total Protein 5.9 L Albumin 3.0 L ASA Classification/Sedation ASA Classification/Sedation ASA Class: III Emergent: No Risks: Risks, benefits and alternatives explained and patient/family accepted plan for sedation. Patient re-evaluated immediately prior to sedation.
[2025-06-02 09:46] LABS: Digoxin 1.1 ng/mL (0.8-2.0)
[2025-06-02] MEDS: UMECLIDINIUM BROMIDE 62.5 MCG ELLIPTA 1 PUFF INHALATION (09:48)
--- NOTE | 2025-06-02 11:09 | PCNFU ---
Nutrition Follow-Up Complete: Moderate protein calorie malnutrition related to chronic illness as evidenced by weight loss 5%/<1 month; moderate muscle wasting and fat loss Goal:Adequate PO intake at least 75% meals and supplements Pt current nutrition is Heart healthy, Ensure BID, NPO today for cardiac cath. Nutrition recommendation: resume diet and supplements post procedure Last recorded weight is 84 kg. Bowel Motility: +BM 05/30 Labs Reviewed: Hgb:12.4, HCt:38.2, Alb:3.0, Na:134, GFR:46, BUN:29, Cr:1.48, Glu:191 Meds Noted: heparin, MVI, lasix Skin: WNL Additional Notes: Pt was on a heart healthy diet, Ensure BID, intake was good at 75--100%. NPO today for procedure. Recommend to resume diet post procedure. Monitoring intakes, weights, labs, supplement tolerance, plan of care Follow up in 7 days
--- NOTE | 2025-06-02 13:59 | WPDCARDPROC ---
Cardiac Cath Procedure Note Date of procedure:: 06/02/25 Performing physician:: Jeffrey Wolff MD Indication:: 1. Acute systolic heart failure 2. NSTEMI 3. Acute kidney injury 4. Atrial fibrillation Procedure Procedure performed:: 1. Left radial artery access, 6 [place] 2. Left heart catheterizations/coronary angiography 3. Moderate sedation Sedation/Medication given:: Versed 1 mg Fentanyl 50 mcg Access site:: Left radial Estimated blood loss:: 5 cc Procedure note:: -the patient was brought to the cardiac catheterization lab and the left arm was prepped and draped in sterile fashion. Patient's left radial artery was accessed and a 5-6 [place] sheath was placed. -the patient's left main coronary artery was engaged with the 5 [place] JL4 catheter and the RCA was engaged with a 5 [place] JR4 catheter and aortic valve was crossed with a JR4 catheter along with the J-wire and LVEDP was measured. Multiple angiographic images were taken in different projections -the sheath then the catheters were removed at the end of the procedure and hemostasis was maintained with a TR band Findings:: Left main: Large caliber, long vessel, divides into LAD and circumflex branches. No angiographic evidence of atherosclerotic disease LAD: Large caliber, transapical vessel gives rise to large caliber diagonal artery. Mid LAD has 10-20% stenosis Left circumflex: Large caliber dominant vessel gives rise to moderate to large caliber 3 marginal branches. No angiographic evidence of atherosclerotic disease Right coronary: Moderate to large caliber nondominant vessel. Luminal irregularity seen LVEDP 18 mm Hg No significant LV-AO gradient on pullback Assessment and Plan Assessment and plan (1) Essential (primary) hypertension: Code(s): I10 - Essential (primary) hypertension Status: Acute (2) Systolic heart failure: Code(s): I50.20 - Unspecified systolic (congestive) heart failure Status: Acute (3) Non-ST elevation myocardial infarction (NSTEMI): Code(s): I21.4 - Non-ST elevation (NSTEMI) myocardial infarction Status: Acute (4) Atrial fibrillation: Code(s): I48.91 - Unspecified atrial fibrillation Status: Acute Plan 1. No significant obstructive CAD seen 2. Nonischemic cardiomyopathy 3. Guideline directed medical therapy for heart failure 4. Discontinue heparin infusion. Heparin can be given for DVT prophylaxis 5. Her restless for primary team anginal cardiology
--- NOTE | 2025-06-02 15:26 | ECG_ITS ---
Test Date: 2025-06-02 16:01:48 Measurements Intervals [place] Rate: 69 P: 0 NV: 0 QRS: 18 QRSD: 101 T: 212 QT: 450 QTc: 484 Interpretive Statements ATRIAL FIBRILLATION LOW QRS VOLTAGE IN EXTREMITY LEADS [QRS DEFLECTION < 0.5 mV IN LIMB LEADS] ST DEVIATION AND MODERATE T-WAVE ABNORMALITY, CONSIDER ANTEROLATERAL ISCHEMIA [-0.1+ mV T-WAVE IN V3-V6] Compared to ECG 05/30/2025 09:33:51 Low QRS voltage now present Myocardial infarct finding no longer present T-wave abnormality still present Possible ischemia still present Electronically Signed On 06-03-2025 16:36:20 CDT by Jeffrey Wolff
--- NOTE | 2025-06-02 15:44 | PM.IMPN ---
Progress Note: A&P Assessment and Plan (1) Non-ST elevation myocardial infarction (NSTEMI): Code(s): I21.4 - Non-ST elevation (NSTEMI) myocardial infarction Status: Acute (2) Atrial fibrillation with rapid ventricular response: Code(s): I48.91 - Unspecified atrial fibrillation Status: Acute (3) Acute kidney injury: Code(s): N17.9 - Acute kidney failure, unspecified Status: Acute (4) Elevated liver enzymes: Code(s): R74.8 - Abnormal levels of other serum enzymes Status: Acute (5) Heart failure with preserved ejection fraction: Code(s): I50.30 - Unspecified diastolic (congestive) heart failure Status: Acute Plan NSTEMI D-dimer 0.99, proBNP >30K. EKG showed T-wave inversions concerning for ischemia in the inferior lateral leads. CTA of the chest, abdomen, and pelvis was negative for pulmonary embolism and aortic dissection. Small bilateral pleural effusions with adjacent compressive atelectasis was noted as well as gallbladder distension with mural thickening and trace surrounding inflammatory change which may be related to vascular congestion and fluid overload. Serial troponin 5.34-5.6 6-5.5 Echo showing EF 15-20% with findings consistent with Takotsubo CMP (Echo 05/03/25 showing EF 55-60%). . Heparin drip started. Cardiology consulted and LHC attempted 06/01/25 but unsuccessful to tortuosity of vessels. Plan for repeat LHC today. Continue Toprol, ASA. Add statin. AFib - A few hours after presentation, he went into rapid atrial fibrillation He was rate controlled since receiving an IV diltiazem bolus. During his most recent hospitalization, there were difficulties controlling his rate and diltiazem was increased to 360 mg daily. He has been out of this medication for several days however. Additionally, he seems to be confused about whether not he is supposed to be taking apixaban and he states that he has not been taking it for unclear reasons. He was started on a heparin drip for NSTEMI as above. He remains on digoxin. Digoxin level 1.1. Amiodarone started and diltiazem stopped. COntinue Heparin drip and change to Eliquis when able. Acute CHF Related to above. He did receive Lasix. Fluid status stable. Acute bronchitis - elevated leukocytosis and chest x-ray with small bilateral pleural effusion with adjacent compressive atelectasis. No obvious pneumonia on CTA. Zosyn added but now changed to Augmentin. Mucinex added Procalcitonin 0.6. He did receive a dose of Lasix and remains on oral Lasix daily. WILLIAM and CKD stage 3 Baseline creatinine 1.2 with admission creatinine 1.8. Creatinine improving Follow BPH On Flomax Elevated liver enzymes Abd ultrasound showing cholelithiasis and prominent edematous-appearing gallbladder wall thickening but with negative sonographic Snowden's sign which is equivocal for acute cholecystitis. No other evidence of acute cholecystitis and suspect related to heart failure. LFTs improving. He does have a history of hepatitis-C COPD not in exacerbation Prediabetes Obstructive sleep apnea Cerebral aneurysm status post coiling. DVT prophylaxis on heparin drip. Eliquis on hold which will be resumed after catheterization Code status - full Subjective Date/time seen: 06/02/25 15:44 Interval history: 79yo male with AFib, HTN, hepatitis-C, CKD stage 3, COPD with chronic respiratory failure on 2 L, prediabetes, JOYCE, BPH, and cerebral aneurysm status post coil who presented with several complaints including general malaise and weakness. Assuming care. Chart reviewed. Patient slept poorly. No chest pain. He has chronic dyspnea but is at his baseline. He does wear 2 L of oxygen at home chronically. He does feel anxious about upcoming cardiac testing. No nausea, vomiting or diarrhea. Exam Narrative: AF 98.1 132/67 76 14 95% 2L Gen - NARD Chest - distant BS with anterior expiratory rhonchi. CV - RRR S1/S2. Abd - Soft, NT/ND, Positive BS Ext - No pedal edema. trace right and 2+ left radial pulses. Neuro - Alert and appropriate Psych - Nml mood and affect Skin - Warm and dry Objective Data Vital Signs Vital Signs: Vital Signs - 24 hr 06/01/25 15:45 06/01/25 15:45 06/01/25 16:00 Temperature Pulse Rate 83 Pulse Rate [Bilateral Pedal (Dorsalis Pedis) Palpation] 85 84 Pulse Rate [Left Pedal (Dorsalis Pedis) Palpation] 85 84 Pulse Rate [Right Radial Palpation] Respiratory Rate 18 Blood Pressure 111/74 Pulse Oximetry 94 Oxygen Delivery Nasal Cannula Oxygen Flow Rate 2 06/01/25 16:00 06/01/25 16:15 06/01/25 16:15 Temperature Pulse Rate 84 86 Pulse Rate [Bilateral Pedal (Dorsalis Pedis) Palpation] 86 Pulse Rate [Left Pedal (Dorsalis Pedis) Palpation] 86 Pulse Rate [Right Radial Palpation] Respiratory Rate 21 H 26 H Blood Pressure 112/86 119/77 Pulse Oximetry 97 100 Oxygen Delivery Nasal Cannula Nasal Cannula Oxygen Flow Rate 2 2 06/01/25 16:30 06/01/25 16:30 06/01/25 16:45 Temperature Pulse Rate 86 Pulse Rate [Bilateral Pedal (Dorsalis Pedis) Palpation] 85 85 Pulse Rate [Left Pedal (Dorsalis Pedis) Palpation] 85 85 Pulse Rate [Right Radial Palpation] Respiratory Rate 20 Blood Pressure 108/72 Pulse Oximetry 96 Oxygen Delivery Nasal Cannula Oxygen Flow Rate 2 06/01/25 16:45 06/01/25 17:00 06/01/25 17:00 Temperature Pulse Rate 83 87 Pulse Rate [Bilateral Pedal (Dorsalis Pedis) Palpation] 90 Pulse Rate [Left Pedal (Dorsalis Pedis) Palpation] 90 Pulse Rate [Right Radial Palpation] Respiratory Rate 20 20 Blood Pressure 115/79 117/83 Pulse Oximetry 95 94 Oxygen Delivery Nasal Cannula Nasal Cannula Oxygen Flow Rate 2 2 06/01/25 17:15 06/01/25 17:15 06/01/25 17:45 Temperature Pulse Rate 85 Pulse Rate [Bilateral Pedal (Dorsalis Pedis) Palpation] 77 86 Pulse Rate [Left Pedal (Dorsalis Pedis) Palpation] 77 86 Pulse Rate [Right Radial Palpation] Respiratory Rate 21 H Blood Pressure 118/72 Pulse Oximetry 96 Oxygen Delivery Nasal Cannula Oxygen Flow Rate 2 06/01/25 17:45 06/01/25 17:56 06/01/25 18:00 Temperature Pulse Rate 86 86 Pulse Rate [Bilateral Pedal (Dorsalis Pedis) Palpation] 86 Pulse Rate [Left Pedal (Dorsalis Pedis) Palpation] 86 Pulse Rate [Right Radial Palpation] Respiratory Rate 20 Blood Pressure 121/79 Pulse Oximetry 94 Oxygen Delivery Nasal Cannula Oxygen Flow Rate 2 06/01/25 18:18 06/01/25 18:56 06/01/25 20:00 Temperature 97.8 F Pulse Rate 89 Pulse Rate [Bilateral Pedal (Dorsalis Pedis) Palpation] 87 Pulse Rate [Left Pedal (Dorsalis Pedis) Palpation] 87 Pulse Rate [Right Radial Palpation] Respiratory Rate 20 Blood Pressure 119/65 Pulse Oximetry 96 99 Oxygen Delivery Nasal Cannula Oxygen Flow Rate 2 06/01/25 20:00 06/01/25 20:16 06/01/25 21:11 Temperature 98.1 F Pulse Rate 84 91 96 Pulse Rate [Bilateral Pedal (Dorsalis Pedis) Palpation] Pulse Rate [Left Pedal (Dorsalis Pedis) Palpation] Pulse Rate [Right Radial Palpation] Respiratory Rate 20 Blood Pressure 116/75 Pulse Oximetry 93 Oxygen Delivery Oxygen Flow Rate 06/01/25 21:11 06/01/25 21:23 06/01/25 21:24 Temperature Pulse Rate 96 83 Pulse Rate [Bilateral Pedal (Dorsalis Pedis) Palpation] Pulse Rate [Left Pedal (Dorsalis Pedis) Palpation] Pulse Rate [Right Radial Palpation] Respiratory Rate 16 Blood Pressure Pulse Oximetry 95 Oxygen Delivery Nasal Cannula Oxygen Flow Rate 2 06/01/25 21:33 06/01/25 22:00 06/01/25 23:15 Temperature 98.7 F Pulse Rate 86 109 H 94 Pulse Rate [Bilateral Pedal (Dorsalis Pedis) Palpation] Pulse Rate [Left Pedal (Dorsalis Pedis) Palpation] Pulse Rate [Right Radial Palpation] Respiratory Rate 16 18 Blood Pressure 109/69 Pulse Oximetry 99 Oxygen Delivery Oxygen Flow Rate 06/02/25 00:00 06/02/25 00:00 06/02/25 01:45 Temperature Pulse Rate 86 88 Pulse Rate [Bilateral Pedal (Dorsalis Pedis) Palpation] Pulse Rate [Left Pedal (Dorsalis Pedis) Palpation] Pulse Rate [Right Radial Palpation] Respiratory Rate 16 Blood Pressure Pulse Oximetry 99 Oxygen Delivery Nasal Cannula Oxygen Flow Rate 2 06/02/25 02:00 06/02/25 03:45 06/02/25 04:00 Temperature Pulse Rate 91 87 Pulse Rate [Bilateral Pedal (Dorsalis Pedis) Palpation] Pulse Rate [Left Pedal (Dorsalis Pedis) Palpation] Pulse Rate [Right Radial Palpation] Respiratory Rate Blood Pressure Pulse Oximetry 98 Oxygen Delivery Nasal Cannula Oxygen Flow Rate 2 06/02/25 04:07 06/02/25 06:00 06/02/25 08:00 Temperature 98.7 F Pulse Rate 88 87 Pulse Rate [Bilateral Pedal (Dorsalis Pedis) Palpation] 91 Pulse Rate [Left Pedal (Dorsalis Pedis) Palpation] Pulse Rate [Right Radial Palpation] 93 Respiratory Rate 18 Blood Pressure 110/68 Pulse Oximetry 98 Oxygen Delivery Oxygen Flow Rate 06/02/25 08:00 06/02/25 08:00 06/02/25 08:13 Temperature 97.8 F Pulse Rate 81 101 H Pulse Rate [Bilateral Pedal (Dorsalis Pedis) Palpation] Pulse Rate [Left Pedal (Dorsalis Pedis) Palpation] Pulse Rate [Right Radial Palpation] Respiratory Rate 20 Blood Pressure 118/78 Pulse Oximetry 96 96 Oxygen Delivery Nasal Cannula Oxygen Flow Rate 2 06/02/25 08:18 06/02/25 08:18 06/02/25 08:31 Temperature Pulse Rate 93 78 Pulse Rate [Bilateral Pedal (Dorsalis Pedis) Palpation] Pulse Rate [Left Pedal (Dorsalis Pedis) Palpation] Pulse Rate [Right Radial Palpation] Respiratory Rate 20 20 Blood Pressure Pulse Oximetry 96 Oxygen Delivery Nasal Cannula Oxygen Flow Rate 2 06/02/25 09:20 06/02/25 09:21 06/02/25 12:00 Temperature Pulse Rate 95 87 78 Pulse Rate [Bilateral Pedal (Dorsalis Pedis) Palpation] Pulse Rate [Left Pedal (Dorsalis Pedis) Palpation] Pulse Rate [Right Radial Palpation] Respiratory Rate Blood Pressure Pulse Oximetry Oxygen Delivery Oxygen Flow Rate 06/02/25 12:00 06/02/25 12:01 06/02/25 14:20 Temperature 98.1 F Pulse Rate 75 76 Pulse Rate [Bilateral Pedal (Dorsalis Pedis) Palpation] Pulse Rate [Left Pedal (Dorsalis Pedis) Palpation] Pulse Rate [Right Radial Palpation] Respiratory Rate 20 18 Blood Pressure 115/75 133/77 Pulse Oximetry 99 99 93 Oxygen Delivery Nasal Cannula Room Air Oxygen Flow Rate 2 06/02/25 14:30 06/02/25 14:45 06/02/25 15:00 Temperature Pulse Rate 71 80 75 Pulse Rate [Bilateral Pedal (Dorsalis Pedis) Palpation] Pulse Rate [Left Pedal (Dorsalis Pedis) Palpation] Pulse Rate [Right Radial Palpation] Respiratory Rate 14 14 19 Blood Pressure 133/74 122/82 128/73 Pulse Oximetry 96 94 96 Oxygen Delivery Room Air Room Air Room Air Oxygen Flow Rate 06/02/25 15:15 06/02/25 15:30 Temperature Pulse Rate 67 76 Pulse Rate [Bilateral Pedal (Dorsalis Pedis) Palpation] Pulse Rate [Left Pedal (Dorsalis Pedis) Palpation] Pulse Rate [Right Radial Palpation] Respiratory Rate 17 14 Blood Pressure 137/60 132/67 Pulse Oximetry 95 95 Oxygen Delivery Room Air Room Air Oxygen Flow Rate Intake/Output Intake/Output: Intake & Output 05/30/25 05/31/25 06/01/25 06/02/25 23:59 23:59 23:59 23:59 Intake Total 1582.1 1447.1 1109.4 733.3 Output Total 700 2125 1230 1225 Balance 882.1 -677.9 -120.6 -491.7 Meds/Results Medications: Active Medications Generic Name Dose Route Start Last Admin Trade Name Freq PRN Reason Stop Dose Admin Acetaminophen 650 mg 05/27/25 23:08 05/29/25 10:37 Acetaminophen 325 Mg Tablet PO 650 mg Q4H PRN Administration Mild Pain (1-3) or Fever Hydrocodone Bitart/Acetaminophen 1 tab 05/28/25 03:53 Hydrocodone/Acetaminophen (*Crx) 7.5-325 Mg Tablet PO Q6H PRN pain 4-10 Albuterol 2 puff 05/28/25 22:11 05/30/25 10:28 Albuterol Sulfate (*Sp) Aerosol 1 Puff INHALATION 2 puff Q6H PRN Administration shortness of breath or wheezing Albuterol/Ipratropium 3 ml 05/30/25 20:00 06/02/25 14:59 Ipratropium 0.5 Mg/Albuterol Sulfate 2.5 Mg Ampul.Neb 3 Ml INHALATION Not Given Q6HRT BERNARDA Amiodarone HCl 200 mg 05/28/25 21:00 06/02/25 09:20 Amiodarone Hcl 200 Mg Tablet PO 200 mg Q12HR BERNARDA Administration Amoxicillin/Clavulanate Potassium 1 tablet 06/01/25 21:00 06/01/25 21:11 Amoxicillin/Clavulanate K 875-125 Mg Tab PO 06/04/25 20:59 1 tablet Q12HR BERNARDA Administration Aspirin 81 mg 05/28/25 09:00 06/02/25 09:21 Aspirin 81 Mg Enteric Tablet PO 81 mg QAM BERNARDA Administration Calcium Carbonate 400 mg 05/28/25 03:52 Calcium Carbonate (Tums) 500 Mg (200 Mg Elemental) PO Q6H PRN Indigestion Cyanocobalamin 500 mcg 05/28/25 09:00 06/01/25 10:01 Cyanocobalamin 500 Mcg Tablet PO 500 mcg DAILY BERNARDA Administration Digoxin 125 mcg 05/28/25 09:00 06/02/25 09:21 Digoxin Tab 125 Mcg Tablet PO 125 mcg QAM BERNARDA Administration Empagliflozin 10 mg 05/29/25 09:00 06/01/25 10:01 Empagliflozin 10 Mg Tablet PO 10 mg DAILY BERNARDA Administration Fish Oil 1 gm 05/28/25 09:00 06/01/25 09:59 [place] 3 Polyunsat Fatty Acids 1 Gm Cap PO 1 gm DAILY BERNARDA Administration Furosemide 20 mg 05/29/25 09:00 06/01/25 10:00 Furosemide 20 Mg Tablet PO 20 mg DAILY BERNARDA Administration Guaifenesin 600 mg 05/30/25 21:00 06/02/25 09:20 Guaifenesin 12 Hr 600 Mg Tabcr PO 600 mg Q12HR BERNARDA Administration Heparin Sodium (Porcine) 4,000 units 05/27/25 23:04 05/28/25 18:30 Heparin Sodium 5,000 Units/Ml Vial IV PUSH 4,000 units PRN PRN Administration aPTT less than 55 seconds Heparin Sodium (Porcine) 3,000 units 05/27/25 23:04 06/02/25 01:32 Heparin Sodium 5,000 Units/Ml Vial IV PUSH 3,000 units PRN PRN Administration aPTT 55 - 70 seconds Heparin Sodium/Dextrose 25,000 units in 250 mls @ 12 mls/hr 05/27/25 23:05 06/02/25 09:10 Heparin Sodium/D5w 100 Units/Ml IV CONT 1,200 units/hr .[id number] BERNARDA 12 mls/hr Titration Protocol 1,200 UNITS/HR Lactobacillus Acidophilus 1 tablet 05/28/25 09:00 06/01/25 10:00 Acidophilus/Bulgaricus Chewable Tablet BY MOUTH 1 tablet DAILY BERNARDA Administration Melatonin 3 mg 05/29/25 22:03 06/02/25 01:38 Melatonin 3 Mg Tablet PO 3 mg HS PRN Administration Insomnia Metoprolol Succinate 100 mg 05/28/25 21:00 06/01/25 21:11 Metoprolol Succinate Ext Rel 100 Mg Tabcr PO 100 mg QHS BERNARDA Administration Multivitamins Therapeutic 1 tablet 05/28/25 09:00 06/01/25 10:00 Multivitamins Therapeutic Tab (*Bkc) PO 1 tablet DAILY BERNARDA Administration Ondansetron HCl 4 mg 05/27/25 23:08 Ondansetron Inj 4 Mg/2 Ml Vial IV PUSH Q4H PRN Nausea Tamsulosin HCl 0.4 mg 05/28/25 21:00 06/01/25 21:11 Tamsulosin Hcl 0.4 Mg Capsule PO 0.4 mg QHS BERNARDA Administration Umeclidinium [place] 1 puff 05/28/25 08:00 06/02/25 09:48 Umeclidinium [place] 62.5 Mcg Ellipta INHALATION 1 puff DAILYRT BERNARDA Administration Radiology Results: ITS Impressions Chest X-Ray 05/27/25 22:43 IMPRESSION: Trace bilateral pleural effusions with adjacent compressive atelectasis. Chest/Abdomen/Pelvis CTA 05/27/25 22:44 IMPRESSION: No pulmonary embolus. No aortic dissection. Small bilateral pleural effusions with adjacent compressive atelectasis. Gallbladder distention with mural thickening and trace surrounding inflammatory change, which may be related to vascular congestion and fluid overload rather than inflammatory gallbladder disease, for which clinical (and serologic) correlation is needed. Internal Auditory Canal CT 05/28/25 08:21 IMPRESSION: No definite abnormality seen in both temporal bones. Renal Ultrasound 05/28/25 21:32 IMPRESSION: No hydronephrosis or renal calculi. No findings to suggest medical renal disease. Simple cyst within the interpolar region of the right kidney, for which no further follow-up is needed. Abdomen Ultrasound 05/29/25 12:51 IMPRESSION: 1. Cholelithiasis and prominent edematous-appearing gallbladder wall thickening but with negative sonographic Snowden's sign which is equivocal for acute cholecystitis. No significant surrounding infiltration and was evident on the prior CT and the gallbladder wall thickening could potentially also be secondary to heart failure, liver disease, renal failure or other generalized edema forming states. Could consider HIDA scan for further evaluation as clinically indicated. Labs Labs: Laboratory Results - last 24 hr 06/02/25 06/02/25 06/02/25 01:09 04:04 07:18 WBC 11.7 H RBC 3.96 L Hgb 12.4 L Hct 38.2 L MCV 96.5 MCH 31.3 MCHC 32.5 RDW 16.4 H Plt Count 151 MPV 12.2 H Immature Gran % (Auto) 0.4 Neut % (Auto) 54.0 Lymph % (Auto) 25.9 [place] % (Auto) 11.1 H Eos % (Auto) 8.1 H Baso % (Auto) 0.5 Lymph # (Auto) 3.02 [place] # (Auto) 1.3 H Eos # (Auto) 1.0 H Baso # (Auto) 0.1 Abs Immat Gran (auto) 0.05 H Absolute Neuts (auto) 6.3 Absolute Nucleated RBC 0.000 Nucleated RBC % 0.0 APTT 70.0 H 160.7 H* Sodium 134 L Potassium 4.1 Chloride 98 Carbon Dioxide 29 Anion Gap 7 BUN 29 H Creatinine 1.48 H Estim Creat Clear Calc 36 Estimated GFR 46 L Glucose 191 H Calcium 8.1 L Magnesium 2.0 Total Bilirubin 0.5 AST 34 ALT 29 Alkaline Phosphatase 51 Total Protein 5.9 L Albumin 3.0 L Digoxin 06/02/25 08:06 WBC RBC Hgb Hct MCV MCH MCHC RDW Plt Count MPV Immature Gran % (Auto) Neut % (Auto) Lymph % (Auto) [place] % (Auto) Eos % (Auto) Baso % (Auto) Lymph # (Auto) [place] # (Auto) Eos # (Auto) Baso # (Auto) Abs Immat Gran (auto) Absolute Neuts (auto) Absolute Nucleated RBC Nucleated RBC % APTT Sodium Potassium Chloride Carbon Dioxide Anion Gap BUN Creatinine Estim Creat Clear Calc Estimated GFR Glucose Calcium Magnesium Total Bilirubin AST ALT Alkaline Phosphatase Total Protein Albumin Digoxin 1.1
[2025-06-02] MEDS: TAMSULOSIN HCL 0.4 MG CAPSULE PO (20:46)
[2025-06-02] MEDS: METOPROLOL SUCCINATE EXT REL 100 MG TABCR PO (20:47)
[2025-06-03] VITALS (20 sets, daily range): BP systolic 116–145; BP diastolic 60–95; PULSE 78–127; RESP 16–24; TEMP 36.3–36.7; O2SAT 90–99; BMI 28.0
[2025-06-03] MEDS: IPRATROPIUM 0.5 MG/ALBUTEROL SULFATE 2.5 MG AMPUL.NEB 3 ML INHALATION ×2 (01:01→20:41)
[2025-06-03 04:29] LABS: Hematocrit 41.8 % (42.0-52.0); Hemoglobin 13.4 g/dL (14.0-18.0); Immature Granulocyte Percent A 0.6 % (0-0.5); Lymphocytes Absolute Auto 2.34 K/mm3 (0.9-3.2); Mean Corpuscular HGB Conc 32.1 g/dl (32-36); Mean Corpuscular Hemoglobin 31.2 pg (26-34); Mean Corpuscular Volume 97.2 fl (80-100); Nucleated Red Blood Cells Absolute Auto 0.000 K/mm3 (0.0-0.012); Nucleated Red Blood Cells Perc 0.0 % (0.0-0.2); Platelet Count Result 159 k/mm3 (150-375); Red Blood Count 4.30 M/mm3 (4.6-6.20); White Blood Count 11.6 K/mm3 (4.5-10.0)
[2025-06-03 04:43] LABS: Alanine Aminotransferase 31 U/L (6-50); Albumin Level 3.2 g/dL (3.5-5.1); Alkaline Phosphatase 55 U/L (38-126); Anion Gap 6 mmol/L (4-12); Aspartate Amino Transferase 37 U/L (17-59); Bilirubin,Total 0.7 mg/dL (0.2-1.3); Blood Urea Nitrogen 27 mg/dL (9-20); Calcium 8.5 mg/dL (8.4-10.2); Carbon Dioxide 30 mmol/L (22-30); Chloride 98 mmol/L (98-107); Estimated CRCL calculation 38 ml/min; Estimated Glomerular Filt Rate 49; Glucose 108 mg/dL (65-110); Magnesium 2.0 mg/dL (1.6-2.3); Potassium 4.8 mmol/L (3.4-5.0); Sodium 134 mmol/L (137-145); Total Protein 6.4 g/dL (6.3-8.2)
--- NOTE | 2025-06-03 08:06 | PM.PNCARD ---
Progress Note: A&P Assessment and Plan (1) Atrial fibrillation with rapid ventricular response: Code(s): I48.91 - Unspecified atrial fibrillation Status: Acute Assessment and Plan: In atrial fibrillation with HR controlled today. [id number] 4. Was on Eliquis in hospital but he did not continue it upon discharge recently. On Metoprolol, and Digoxin and Amiodarone. Monitor HR. On Amiodarone since 05/28/25 to improve HR or cardiovert. Stopped Cardizem since HR is controlled and to avoid negative inotropic medication without HF benefit. Restart Eliquis. (2) Elevated troponin: Code(s): R79.89 - Other specified abnormal findings of blood chemistry Status: Acute Assessment and Plan: Moderately elevated 5.6 and trending down. Possible due to tachycardia mediated cardiomyopathy or Takotsubo cardiomyopathy or from Noncardiac such as pneumonia. (3) Essential (primary) hypertension: Code(s): I10 - Essential (primary) hypertension Status: Acute Assessment and Plan: Stable. (4) Systolic heart failure: Code(s): I50.20 - Unspecified systolic (congestive) heart failure Status: Acute Assessment and Plan: Euvolemic. Acute. Non-ICM possibly due to tachycardia mediated cardiomyopathy or Takotsubo cardiomyopathy. 05/28/25 Limited echo: EF 15-20%, severe LVE, only small basal segments have normal contractility s/o Takotsubo cardiomyopathy, diastolic function not assessed. Rate is controlled today. On Metoprolol and Jardiance 10 mg daily. Hold off on Entresto due to kidney impairment not at baseline. On Lasix 20 mg daily. Ordered life vest to prevent sudden cardiac arrest though patient still wants to think about it. Dr. Wolff had attempted access site via right femoral and right radial but unable to pass abdominal aorta and right subclavian probably due to atherosclerosis. Successful LHC via left radial on 06/02/25 showing 10% mid LAD stenosis. May d/c home from cardiology standpoint and f/u with me in 1 week. Subjective Date/time seen: 06/03/25 08:06 Interval history: Denies chest pain or sob. Exam Const: General: cooperative, healthy appearing and comfortable Orientation/consciousness: oriented to person, oriented to place and oriented to time Resp: Auscultation: clear to auscultation bilaterally, no crackles, no rales, no rhonchi and no wheezes Cardio: Rate: regular rate Rhythm: abnormal rhythm Heart sounds: no murmurs Peripheral pulses: dorsalis pedis present Neuro: General: oriented to person, oriented to place and oriented to time Extrem: Right lower extremity: no edema Left lower extremity: no edema Objective Data Vital Signs Vital Signs: Vital Signs - 24 hr 06/02/25 08:13 06/02/25 08:18 06/02/25 08:18 Temperature 97.8 F Pulse Rate 101 H 93 Respiratory Rate 20 20 Blood Pressure 118/78 Pulse Oximetry 96 96 Oxygen Delivery Nasal Cannula Oxygen Flow Rate 2 Fraction of Inspired Oxygen 06/02/25 08:31 06/02/25 09:20 06/02/25 09:21 Temperature Pulse Rate 78 95 87 Respiratory Rate 20 Blood Pressure Pulse Oximetry Oxygen Delivery Oxygen Flow Rate Fraction of Inspired Oxygen 06/02/25 10:00 06/02/25 12:00 06/02/25 12:00 Temperature Pulse Rate 88 78 Respiratory Rate Blood Pressure Pulse Oximetry 99 Oxygen Delivery Nasal Cannula Oxygen Flow Rate 2 Fraction of Inspired Oxygen 06/02/25 12:00 06/02/25 12:01 06/02/25 14:20 Temperature 98.1 F Pulse Rate 87 75 76 Respiratory Rate 20 18 Blood Pressure 115/75 133/77 Pulse Oximetry 99 93 Oxygen Delivery Room Air Oxygen Flow Rate Fraction of Inspired Oxygen 06/02/25 14:30 06/02/25 14:45 06/02/25 15:00 Temperature Pulse Rate 71 80 75 Respiratory Rate 14 14 19 Blood Pressure 133/74 122/82 128/73 Pulse Oximetry 96 94 96 Oxygen Delivery Room Air Room Air Room Air Oxygen Flow Rate Fraction of Inspired Oxygen 06/02/25 15:15 06/02/25 15:30 06/02/25 15:45 Temperature Pulse Rate 67 76 65 Respiratory Rate 17 14 16 Blood Pressure 137/60 132/67 129/64 Pulse Oximetry 95 95 93 Oxygen Delivery Room Air Room Air Room Air Oxygen Flow Rate Fraction of Inspired Oxygen 06/02/25 16:00 06/02/25 16:15 06/02/25 16:30 Temperature Pulse Rate 66 75 70 Respiratory Rate 15 19 17 Blood Pressure 130/86 138/76 128/67 Pulse Oximetry 93 96 95 Oxygen Delivery Room Air Room Air Room Air Oxygen Flow Rate Fraction of Inspired Oxygen 06/02/25 16:45 06/02/25 17:00 06/02/25 17:31 Temperature 97.5 F L Pulse Rate 72 71 75 Respiratory Rate 16 18 18 Blood Pressure 122/69 136/61 129/59 L Pulse Oximetry 95 96 100 Oxygen Delivery Room Air Room Air Oxygen Flow Rate Fraction of Inspired Oxygen 06/02/25 18:00 06/02/25 19:43 06/02/25 20:00 Temperature 97.5 F L Pulse Rate 75 96 83 Respiratory Rate 18 18 Blood Pressure 118/70 Pulse Oximetry 100 100 Oxygen Delivery Oxygen Flow Rate Fraction of Inspired Oxygen 06/02/25 20:00 06/02/25 20:00 06/02/25 20:08 Temperature Pulse Rate 89 84 Respiratory Rate 20 Blood Pressure Pulse Oximetry 100 Oxygen Delivery Nasal Cannula Oxygen Flow Rate 2 Fraction of Inspired Oxygen 06/02/25 20:15 06/02/25 20:47 06/02/25 20:47 Temperature Pulse Rate 84 75 75 Respiratory Rate 20 Blood Pressure Pulse Oximetry 94 Oxygen Delivery Nasal Cannula Oxygen Flow Rate 1 Fraction of Inspired Oxygen 06/02/25 20:58 06/02/25 22:00 06/02/25 22:00 Temperature 97.5 F L 97.6 F Pulse Rate 98 96 90 Respiratory Rate 18 18 Blood Pressure 123/76 128/76 Pulse Oximetry 98 98 Oxygen Delivery Oxygen Flow Rate Fraction of Inspired Oxygen 06/02/25 23:42 06/03/25 00:00 06/03/25 00:00 Temperature 97.5 F L Pulse Rate 92 87 Respiratory Rate 18 Blood Pressure 124/68 Pulse Oximetry 97 98 Oxygen Delivery Nasal Cannula Oxygen Flow Rate 2 Fraction of Inspired Oxygen 06/03/25 01:03 06/03/25 02:00 06/03/25 04:00 Temperature Pulse Rate 90 87 Respiratory Rate Blood Pressure Pulse Oximetry 99 Oxygen Delivery Nasal Cannula Oxygen Flow Rate 2 Fraction of Inspired Oxygen 06/03/25 04:00 06/03/25 04:00 06/03/25 06:00 Temperature 98 F Pulse Rate 80 87 86 Respiratory Rate 18 Blood Pressure 125/80 Pulse Oximetry 95 Oxygen Delivery Oxygen Flow Rate Fraction of Inspired Oxygen 06/03/25 07:49 Temperature 97.7 F Pulse Rate 78 Respiratory Rate 16 Blood Pressure 117/60 Pulse Oximetry 98 Oxygen Delivery Oxygen Flow Rate Fraction of Inspired Oxygen Intake/Output Intake/Output: Intake & Output 06/30/25 07/01/25 07/02/25 07/03/25 23:59 23:59 23:59 23:59 Intake Total 1447.1 1109.4 973.3 550 Output Total 2125 1230 1225 200 Balance -677.9 -120.6 -251.7 350 Meds/Results Medications: Active Medications Generic Name Dose Route Start Last Admin Trade Name Freq PRN Reason Stop Dose Admin Acetaminophen 650 mg 05/27/25 23:08 05/29/25 10:37 Acetaminophen 325 Mg Tablet PO 650 mg Q4H PRN Administration Mild Pain (1-3) or Fever Hydrocodone Bitart/Acetaminophen 1 tab 05/28/25 03:53 Hydrocodone/Acetaminophen (*Crx) 7.5-325 Mg Tablet PO Q6H PRN pain 4-10 Albuterol 2 puff 05/28/25 22:11 05/30/25 10:28 Albuterol Sulfate (*Sp) Aerosol 1 Puff INHALATION 2 puff Q6H PRN Administration shortness of breath or wheezing Albuterol/Ipratropium 3 ml 05/30/25 20:00 06/03/25 01:01 Ipratropium 0.5 Mg/Albuterol Sulfate 2.5 Mg Ampul.Neb 3 Ml INHALATION 3 ml Q6HRT BERNARDA Administration Amiodarone HCl 200 mg 05/28/25 21:00 06/02/25 20:47 Amiodarone Hcl 200 Mg Tablet PO 200 mg Q12HR BERNARDA Administration Amoxicillin/Clavulanate Potassium 1 tablet 06/01/25 21:00 06/02/25 20:46 Amoxicillin/Clavulanate K 875-125 Mg Tab PO 06/04/25 20:59 1 tablet Q12HR BERNARDA Administration Apixaban 2.5 mg 06/03/25 09:00 Apixaban 2.5 Mg Tablet PO Q12HR BERNARDA Aspirin 81 mg 05/28/25 09:00 06/02/25 09:21 Aspirin 81 Mg Enteric Tablet PO 81 mg QAM BERNARDA Administration Atorvastatin Calcium 40 mg 06/03/25 09:00 Atorvastatin 40 Mg Tablet PO DAILY BERNARDA Calcium Carbonate 400 mg 05/28/25 03:52 Calcium Carbonate (Tums) 500 Mg (200 Mg Elemental) PO Q6H PRN Indigestion Cyanocobalamin 500 mcg 05/28/25 09:00 06/02/25 16:31 Cyanocobalamin 500 Mcg Tablet PO Not Given DAILY [facility] Digoxin 125 mcg 05/28/25 09:00 06/02/25 09:21 Digoxin Tab 125 Mcg Tablet PO 125 mcg QAM BERNARDA Administration Empagliflozin 10 mg 05/29/25 09:00 06/02/25 16:32 Empagliflozin 10 Mg Tablet PO Not Given DAILY BERNARDA Fish Oil 1 gm 05/28/25 09:00 06/02/25 16:31 [place] 3 Polyunsat Fatty Acids 1 Gm Cap PO Not Given DAILY BERNARDA Furosemide 20 mg 05/29/25 09:00 06/02/25 16:31 Furosemide 20 Mg Tablet PO Not Given DAILY BERNARDA Guaifenesin 600 mg 05/30/25 21:00 06/02/25 20:47 Guaifenesin 12 Hr 600 Mg Tabcr PO 600 mg Q12HR BERNARDA Administration Lactobacillus Acidophilus 1 tablet 05/28/25 09:00 06/02/25 16:32 Acidophilus/Bulgaricus Chewable Tablet BY MOUTH Not Given DAILY [facility] Melatonin 3 mg 05/29/25 22:03 06/02/25 01:38 Melatonin 3 Mg Tablet PO 3 mg HS PRN Administration Insomnia Metoprolol Succinate 100 mg 05/28/25 21:00 06/02/25 20:47 Metoprolol Succinate Ext Rel 100 Mg Tabcr PO 100 mg QHS [facility] Administration Multivitamins Therapeutic 1 tablet 05/28/25 09:00 06/02/25 16:31 Multivitamins Therapeutic Tab (*Bkc) PO Not Given DAILY [facility] Ondansetron HCl 4 mg 05/27/25 23:08 Ondansetron Inj 4 Mg/2 Ml Vial IV PUSH Q4H PRN Nausea Tamsulosin HCl 0.4 mg 05/28/25 21:00 06/02/25 20:46 Tamsulosin Hcl 0.4 Mg Capsule PO 0.4 mg QHS [facility] Administration Umeclidinium [place] 1 puff 05/28/25 08:00 06/02/25 09:48 Umeclidinium [place] 62.5 Mcg Ellipta INHALATION 1 puff DAILYRT [facility] Administration Radiology Results: ITS Impressions Chest X-Ray 05/27/25 22:43 IMPRESSION: Trace bilateral pleural effusions with adjacent compressive atelectasis. Chest/Abdomen/Pelvis CTA 05/27/25 22:44 IMPRESSION: No pulmonary embolus. No aortic dissection. Small bilateral pleural effusions with adjacent compressive atelectasis. Gallbladder distention with mural thickening and trace surrounding inflammatory change, which may be related to vascular congestion and fluid overload rather than inflammatory gallbladder disease, for which clinical (and serologic) correlation is needed. Internal Auditory Canal CT 05/28/25 08:21 IMPRESSION: No definite abnormality seen in both temporal bones. Renal Ultrasound 05/28/25 21:32 IMPRESSION: No hydronephrosis or renal calculi. No findings to suggest medical renal disease. Simple cyst within the interpolar region of the right kidney, for which no further follow-up is needed. Abdomen Ultrasound 05/29/25 12:51 IMPRESSION: 1. Cholelithiasis and prominent edematous-appearing gallbladder wall thickening but with negative sonographic Snowden's sign which is equivocal for acute cholecystitis. No significant surrounding infiltration and was evident on the prior CT and the gallbladder wall thickening could potentially also be secondary to heart failure, liver disease, renal failure or other generalized edema forming states. Could consider HIDA scan for further evaluation as clinically indicated. Labs Labs: Laboratory Results - last 24 hr 06/02/25 06/03/25 08:06 04:13 WBC 11.6 H RBC 4.30 L Hgb 13.4 L Hct 41.8 L MCV 97.2 MCH 31.2 MCHC 32.1 RDW 16.6 H Plt Count 159 MPV 11.7 H Immature Gran % (Auto) 0.6 H Neut % (Auto) 61.7 Lymph % (Auto) 20.2 [place] % (Auto) 9.9 H Eos % (Auto) 7.0 H Baso % (Auto) 0.6 Lymph # (Auto) 2.34 [place] # (Auto) 1.2 H Eos # (Auto) 0.8 H Baso # (Auto) 0.1 Abs Immat Gran (auto) 0.07 H Absolute Neuts (auto) 7.2 H Absolute Nucleated RBC 0.000 Nucleated RBC % 0.0 Sodium 134 L Potassium 4.8 Chloride 98 Carbon Dioxide 30 Anion Gap 6 BUN 27 H Creatinine 1.40 H Estim Creat Clear Calc 38 Estimated GFR 49 L Glucose 108 Calcium 8.5 Magnesium 2.0 Total Bilirubin 0.7 AST 37 ALT 31 Alkaline Phosphatase 55 Total Protein 6.4 Albumin 3.2 L Digoxin 1.1
[2025-06-03] MEDS: guaiFENesin 12 HR 600 MG TABCR PO ×2 (08:13→21:36)
[2025-06-03] MEDS: OMEGA 3 POLYUNSAT FATTY ACIDS 1 GM CAP PO (08:13)
[2025-06-03] MEDS: EMPAGLIFLOZIN 10 MG TABLET PO (08:13)
[2025-06-03] MEDS: APIXABAN 2.5 MG TABLET PO ×2 (08:13→21:36)
[2025-06-03] MEDS: MULTIVITAMINS THERAPEUTIC TAB (*BKC) 1 TABLET PO (08:13)
[2025-06-03] MEDS: AMIODARONE HCL 200 MG TABLET PO ×2 (08:13→21:36)
[2025-06-03] MEDS: CYANOCOBALAMIN 500 MCG TABLET PO (08:13)
[2025-06-03] MEDS: ACIDOPHILUS/BULGARICUS CHEWABLE TABLET 1 TABLET BY MOUTH (08:13)
[2025-06-03] MEDS: ATORVASTATIN 40 MG TABLET PO (08:13)
[2025-06-03] MEDS: FUROSEMIDE 20 MG TABLET PO (08:13)
[2025-06-03] MEDS: DIGOXIN TAB 125 MCG TABLET PO (08:13)
[2025-06-03] MEDS: ASPIRIN 81 MG ENTERIC TABLET PO (08:13)
[2025-06-03] MEDS: UMECLIDINIUM BROMIDE 62.5 MCG ELLIPTA 1 PUFF INHALATION (08:48)
--- NOTE | 2025-06-03 16:33 | PM.IMPN ---
Progress Note: A&P Assessment and Plan (1) Non-ST elevation myocardial infarction (NSTEMI): Code(s): I21.4 - Non-ST elevation (NSTEMI) myocardial infarction Status: Acute (2) Atrial fibrillation with rapid ventricular response: Code(s): I48.91 - Unspecified atrial fibrillation Status: Acute (3) Acute kidney injury: Code(s): N17.9 - Acute kidney failure, unspecified Status: Acute (4) Elevated liver enzymes: Code(s): R74.8 - Abnormal levels of other serum enzymes Status: Acute (5) Heart failure with preserved ejection fraction: Code(s): I50.30 - Unspecified diastolic (congestive) heart failure Status: Acute Plan NSTEMI D-dimer 0.99, proBNP >30K. EKG showed T-wave inversions concerning for ischemia in the inferior lateral leads. CTA of the chest, abdomen, and pelvis was negative for pulmonary embolism and aortic dissection. Small bilateral pleural effusions with adjacent compressive atelectasis was noted as well as gallbladder distension with mural thickening and trace surrounding inflammatory change which may be related to vascular congestion and fluid overload. Serial troponin 5.34-5.6 6-5.5 Echo showing EF 15-20% with findings consistent with Takotsubo CMP (Echo 05/03/25 showing EF 55-60%). . Heparin drip started. Cardiology consulted and C attempted 06/01/25 but unsuccessful due to tortuosity of vessels. Repeat C 06/02 showing no significant obstructive CAD seen. Heparin gtt stopped. Continue Toprol, ASA, statin. AFib - A few hours after presentation, he went into rapid atrial fibrillation He was rate controlled since receiving an IV diltiazem bolus. During his most recent hospitalization, there were difficulties controlling his rate and diltiazem was increased to 360 mg daily. He has been out of this medication for several days however. Additionally, he seems to be confused about whether not he is supposed to be taking apixaban and he states that he has not been taking it for unclear reasons. He was started on a heparin drip for NSTEMI as above. He remains on digoxin. Digoxin level 1.1. Amiodarone started and diltiazem stopped. Changed to Eliquis Acute CHF As above. Echo showing EF 15-20% that is down from 55-60% last month. He did receive a dose of Lasix and remains on oral Lasix daily. Fluid status stable. Continue GDMT with Empagliflozin, Toprol XL. Consider adding spironolactone and Entresto LifeVest offered but patient refusing. He voices understanding of the benefits of the LifeVest and the risks of refusing to use this Acute bronchitis - elevated leukocytosis and chest x-ray with small bilateral pleural effusion with adjacent compressive atelectasis. No obvious pneumonia on CTA. Procalcitonin 0.6. Zosyn added but now changed to Augmentin. Mucinex added Augmentin to complete a course WILLIAM and CKD stage 3 Baseline creatinine 1.2 with admission creatinine 1.8. Creatinine improving Follow BPH On Flomax Elevated liver enzymes Abd ultrasound showing cholelithiasis and prominent edematous-appearing gallbladder wall thickening but with negative sonographic Snowden's sign which is equivocal for acute cholecystitis. He does have a history of hepatitis-C No other evidence of acute cholecystitis and suspect GB edema related to heart failure. LFTs normal. Follow. COPD with chronic resp failure On 2L at night at home but wearing O2 all time here. Weaned to 1L. Home O2 evaluation. Continue Duonebs. Order CPT Obstructive sleep apnea Noncompliant with CPAP Cerebral aneurysm status post coiling. Stable Continue PT/OT DVT prophylaxis - Eliquis Code status - full Subjective Date/time seen: 06/03/25 16:33 Interval history: 79yo male with AFib, HTN, hepatitis-C, CKD stage 3, COPD with chronic respiratory failure on 2 L, prediabetes, JOYCE, BPH, and cerebral aneurysm status post coil who presented with several complaints including general malaise and weakness. Staff noted patient is unsteady with walking. Patient slept well. No chest pain or shortness of breath. No nausea or vomiting. Does have a dry cough. He voices understanding the benefits of a LifeVest but refuses LifeVest at this time. Exam Narrative: AF 98.1 130/73 92 24 97% 1L Gen - NARD Chest -scattered rhonchi CV -irregularly irregular. Tele showing no significant dysrhythmias Abd - Soft, NT/ND, Positive BS Ext - trace pedal edema. trace right and 2+ left radial pulses. Neuro - Alert and appropriate Psych - Nml mood and affect Skin - Warm and dry Objective Data Vital Signs Vital Signs: Vital Signs - 24 hr 06/02/25 16:45 06/02/25 17:00 06/02/25 17:31 Temperature 97.5 F L Pulse Rate 72 71 75 Respiratory Rate 16 18 18 Blood Pressure 122/69 136/61 129/59 L Pulse Oximetry 95 96 100 Oxygen Delivery Room Air Room Air Oxygen Flow Rate Fraction of Inspired Oxygen 06/02/25 18:00 06/02/25 19:43 06/02/25 20:00 Temperature 97.5 F L Pulse Rate 75 96 83 Respiratory Rate 18 18 Blood Pressure 118/70 Pulse Oximetry 100 100 Oxygen Delivery Oxygen Flow Rate Fraction of Inspired Oxygen 06/02/25 20:00 06/02/25 20:00 06/02/25 20:08 Temperature Pulse Rate 89 84 Respiratory Rate 20 Blood Pressure Pulse Oximetry 100 Oxygen Delivery Nasal Cannula Oxygen Flow Rate 2 Fraction of Inspired Oxygen 06/02/25 20:15 06/02/25 20:47 06/02/25 20:47 Temperature Pulse Rate 84 75 75 Respiratory Rate 20 Blood Pressure Pulse Oximetry 94 Oxygen Delivery Nasal Cannula Oxygen Flow Rate 1 Fraction of Inspired Oxygen 06/02/25 20:58 06/02/25 22:00 06/02/25 22:00 Temperature 97.5 F L 97.6 F Pulse Rate 98 96 90 Respiratory Rate 18 18 Blood Pressure 123/76 128/76 Pulse Oximetry 98 98 Oxygen Delivery Oxygen Flow Rate Fraction of Inspired Oxygen 06/02/25 23:42 06/03/25 00:00 06/03/25 00:00 Temperature 97.5 F L Pulse Rate 92 87 Respiratory Rate 18 Blood Pressure 124/68 Pulse Oximetry 97 98 Oxygen Delivery Nasal Cannula Oxygen Flow Rate 2 Fraction of Inspired Oxygen 06/03/25 01:03 06/03/25 02:00 06/03/25 04:00 Temperature Pulse Rate 90 87 Respiratory Rate Blood Pressure Pulse Oximetry 99 Oxygen Delivery Nasal Cannula Oxygen Flow Rate 2 Fraction of Inspired Oxygen 06/03/25 04:00 06/03/25 04:00 06/03/25 06:00 Temperature 98 F Pulse Rate 80 87 86 Respiratory Rate 18 Blood Pressure 125/80 Pulse Oximetry 95 Oxygen Delivery Oxygen Flow Rate Fraction of Inspired Oxygen 06/03/25 07:49 06/03/25 08:00 06/03/25 08:13 Temperature 97.7 F Pulse Rate 78 107 H 99 Respiratory Rate 16 Blood Pressure 117/60 Pulse Oximetry 98 Oxygen Delivery Oxygen Flow Rate Fraction of Inspired Oxygen 06/03/25 08:13 06/03/25 08:49 06/03/25 09:30 Temperature Pulse Rate 99 86 Respiratory Rate Blood Pressure Pulse Oximetry Oxygen Delivery Nasal Cannula Oxygen Flow Rate 2 Fraction of Inspired Oxygen 06/03/25 10:00 06/03/25 12:00 06/03/25 12:00 Temperature 97.3 F L Pulse Rate 86 94 79 Respiratory Rate 24 H Blood Pressure 116/68 Pulse Oximetry 99 Oxygen Delivery Oxygen Flow Rate Fraction of Inspired Oxygen 06/03/25 12:02 06/03/25 14:00 06/03/25 16:00 Temperature 98.1 F Pulse Rate 88 92 Respiratory Rate 24 H Blood Pressure 130/73 Pulse Oximetry 97 Oxygen Delivery Nasal Cannula Oxygen Flow Rate 1 Fraction of Inspired Oxygen Intake/Output Intake/Output: Intake & Output 05/31/25 06/01/25 06/02/25 06/03/25 23:59 23:59 23:59 23:59 Intake Total 1447.1 1109.4 973.3 790 Output Total 2125 1230 1225 200 Balance -677.9 -120.6 -251.7 590 Meds/Results Medications: Active Medications Generic Name Dose Route Start Last Admin Trade Name Freq PRN Reason Stop Dose Admin Acetaminophen 650 mg 05/27/25 23:08 05/29/25 10:37 Acetaminophen 325 Mg Tablet PO 650 mg Q4H PRN Administration Mild Pain (1-3) or Fever Hydrocodone Bitart/Acetaminophen 1 tab 05/28/25 03:53 Hydrocodone/Acetaminophen (*Crx) 7.5-325 Mg Tablet PO Q6H PRN pain 4-10 Albuterol 2 puff 05/28/25 22:11 05/30/25 10:28 Albuterol Sulfate (*Sp) Aerosol 1 Puff INHALATION 2 puff Q6H PRN Administration shortness of breath or wheezing Albuterol/Ipratropium 3 ml 06/03/25 08:17 Ipratropium 0.5 Mg/Albuterol Sulfate 2.5 Mg Ampul.Neb 3 Ml INHALATION Q6HRT PRN Shortness Of Breath Amiodarone HCl 200 mg 05/28/25 21:00 06/03/25 08:13 Amiodarone Hcl 200 Mg Tablet PO 200 mg Q12HR BERNARDA Administration Amoxicillin/Clavulanate Potassium 1 tablet 06/01/25 21:00 06/03/25 08:13 Amoxicillin/Clavulanate K 875-125 Mg Tab PO 06/04/25 20:59 1 tablet Q12HR BERNARDA Administration Apixaban 2.5 mg 06/03/25 09:00 06/03/25 08:13 Apixaban 2.5 Mg Tablet PO 2.5 mg Q12HR BERNARDA Administration Aspirin 81 mg 05/28/25 09:00 06/03/25 08:13 Aspirin 81 Mg Enteric Tablet PO 81 mg QAM BERNARDA Administration Atorvastatin Calcium 40 mg 06/03/25 09:00 06/03/25 08:13 Atorvastatin 40 Mg Tablet PO 40 mg DAILY BERNARDA Administration Calcium Carbonate 400 mg 05/28/25 03:52 Calcium Carbonate (Tums) 500 Mg (200 Mg Elemental) PO Q6H PRN Indigestion Cyanocobalamin 500 mcg 05/28/25 09:00 06/03/25 08:13 Cyanocobalamin 500 Mcg Tablet PO 500 mcg DAILY BERNARDA Administration Digoxin 125 mcg 05/28/25 09:00 06/03/25 08:13 Digoxin Tab 125 Mcg Tablet PO 125 mcg QAM BERNARDA Administration Empagliflozin 10 mg 05/29/25 09:00 06/03/25 08:13 Empagliflozin 10 Mg Tablet PO 10 mg DAILY BERNARDA Administration Fish Oil 1 gm 05/28/25 09:00 06/03/25 08:13 [place] 3 Polyunsat Fatty Acids 1 Gm Cap PO 1 gm DAILY BERNARDA Administration Furosemide 20 mg 05/29/25 09:00 06/03/25 08:13 Furosemide 20 Mg Tablet PO 20 mg DAILY BERNARDA Administration Guaifenesin 600 mg 05/30/25 21:00 06/03/25 08:13 Guaifenesin 12 Hr 600 Mg Tabcr PO 600 mg Q12HR BERNARDA Administration Lactobacillus Acidophilus 1 tablet 05/28/25 09:00 06/03/25 08:13 Acidophilus/Bulgaricus Chewable Tablet BY MOUTH 1 tablet DAILY BERNARDA Administration Melatonin 3 mg 05/29/25 22:03 06/02/25 01:38 Melatonin 3 Mg Tablet PO 3 mg HS PRN Administration Insomnia Metoprolol Succinate 100 mg 05/28/25 21:00 06/02/25 20:47 Metoprolol Succinate Ext Rel 100 Mg Tabcr PO 100 mg QHS BERNARDA Administration Multivitamins Therapeutic 1 tablet 05/28/25 09:00 06/03/25 08:13 Multivitamins Therapeutic Tab (*Bkc) PO 1 tablet DAILY BERNARDA Administration Ondansetron HCl 4 mg 05/27/25 23:08 Ondansetron Inj 4 Mg/2 Ml Vial IV PUSH Q4H PRN Nausea Tamsulosin HCl 0.4 mg 05/28/25 21:00 06/02/25 20:46 Tamsulosin Hcl 0.4 Mg Capsule PO 0.4 mg QHS BERNARDA Administration Umeclidinium [place] 1 puff 05/28/25 08:00 06/03/25 08:48 Umeclidinium [place] 62.5 Mcg Ellipta INHALATION 1 puff DAILYRT BERNARDA Administration Radiology Results: ITS Impressions Chest X-Ray 05/27/25 22:43 IMPRESSION: Trace bilateral pleural effusions with adjacent compressive atelectasis. Chest/Abdomen/Pelvis CTA 05/27/25 22:44 IMPRESSION: No pulmonary embolus. No aortic dissection. Small bilateral pleural effusions with adjacent compressive atelectasis. Gallbladder distention with mural thickening and trace surrounding inflammatory change, which may be related to vascular congestion and fluid overload rather than inflammatory gallbladder disease, for which clinical (and serologic) correlation is needed. Internal Auditory Canal CT 05/28/25 08:21 IMPRESSION: No definite abnormality seen in both temporal bones. Renal Ultrasound 05/28/25 21:32 IMPRESSION: No hydronephrosis or renal calculi. No findings to suggest medical renal disease. Simple cyst within the interpolar region of the right kidney, for which no further follow-up is needed. Abdomen Ultrasound 05/29/25 12:51 IMPRESSION: 1. Cholelithiasis and prominent edematous-appearing gallbladder wall thickening but with negative sonographic Snowden's sign which is equivocal for acute cholecystitis. No significant surrounding infiltration and was evident on the prior CT and the gallbladder wall thickening could potentially also be secondary to heart failure, liver disease, renal failure or other generalized edema forming states. Could consider HIDA scan for further evaluation as clinically indicated. Labs Labs: Laboratory Results - last 24 hr 06/03/25 04:13 WBC 11.6 H RBC 4.30 L Hgb 13.4 L Hct 41.8 L MCV 97.2 MCH 31.2 MCHC 32.1 RDW 16.6 H Plt Count 159 MPV 11.7 H Immature Gran % (Auto) 0.6 H Neut % (Auto) 61.7 Lymph % (Auto) 20.2 [place] % (Auto) 9.9 H Eos % (Auto) 7.0 H Baso % (Auto) 0.6 Lymph # (Auto) 2.34 [place] # (Auto) 1.2 H Eos # (Auto) 0.8 H Baso # (Auto) 0.1 Abs Immat Gran (auto) 0.07 H Absolute Neuts (auto) 7.2 H Absolute Nucleated RBC 0.000 Nucleated RBC % 0.0 Sodium 134 L Potassium 4.8 Chloride 98 Carbon Dioxide 30 Anion Gap 6 BUN 27 H Creatinine 1.40 H Estim Creat Clear Calc 38 Estimated GFR 49 L Glucose 108 Calcium 8.5 Magnesium 2.0 Total Bilirubin 0.7 AST 37 ALT 31 Alkaline Phosphatase 55 Total Protein 6.4 Albumin 3.2 L
[2025-06-03] MEDS: TAMSULOSIN HCL 0.4 MG CAPSULE PO (21:35)
[2025-06-03] MEDS: METOPROLOL SUCCINATE EXT REL 100 MG TABCR PO (21:35)
[2025-06-04] VITALS (17 sets, daily range): BP systolic 111–122; BP diastolic 62–73; PULSE 56–96; RESP 18–22; TEMP 36.4–36.6; O2SAT 91–100
[2025-06-04 05:09] LABS: Anion Gap 7 mmol/L (4-12); Blood Urea Nitrogen 29 mg/dL (9-20); Calcium 8.7 mg/dL (8.4-10.2); Carbon Dioxide 29 mmol/L (22-30); Chloride 95 mmol/L (98-107); Estimated CRCL calculation 40 ml/min; Estimated Glomerular Filt Rate 52; Glucose 96 mg/dL (65-110); Potassium 5.2 mmol/L (3.4-5.0); Sodium 131 mmol/L (137-145)
[2025-06-04] MEDS: IPRATROPIUM 0.5 MG/ALBUTEROL SULFATE 2.5 MG AMPUL.NEB 3 ML INHALATION (06:01)
[2025-06-04] MEDS: UMECLIDINIUM BROMIDE 62.5 MCG ELLIPTA 1 PUFF INHALATION (07:39)
[2025-06-04 08:45] LABS: Potassium 5.4 mmol/L (3.4-5.0)
--- NOTE | 2025-06-04 08:48 | PM.PNCARD ---
Progress Note: A&P Assessment and Plan (1) Atrial fibrillation with rapid ventricular response: Code(s): I48.91 - Unspecified atrial fibrillation Status: Acute Assessment and Plan: In atrial fibrillation with HR controlled today. [id number] 4. Was on Eliquis in hospital but he did not continue it upon discharge recently. On Metoprolol, and Digoxin and Amiodarone. Monitor HR. On Amiodarone since 05/28/25 to improve HR or cardiovert. Stopped Cardizem since HR is controlled and to avoid negative inotropic medication without HF benefit. Restarted Eliquis. (2) Elevated troponin: Code(s): R79.89 - Other specified abnormal findings of blood chemistry Status: Acute Assessment and Plan: Moderately elevated 5.6 and trending down. Possible due to tachycardia mediated cardiomyopathy or Takotsubo cardiomyopathy or from Noncardiac such as pneumonia. (3) Essential (primary) hypertension: Code(s): I10 - Essential (primary) hypertension Status: Acute Assessment and Plan: Stable. (4) Systolic heart failure: Code(s): I50.20 - Unspecified systolic (congestive) heart failure Status: Acute Assessment and Plan: Euvolemic. Acute. Non-ICM possibly due to tachycardia mediated cardiomyopathy or Takotsubo cardiomyopathy. 05/28/25 Limited echo: EF 15-20%, severe LVE, only small basal segments have normal contractility s/o Takotsubo cardiomyopathy, diastolic function not assessed. Rate is controlled today. On Metoprolol and Jardiance 10 mg daily. Hold off on Entresto and Spironolactone due to high potassium and kidney impairment not at baseline. On Lasix 20 mg daily. Avoid potassium supplements found in Ensure and bananas. Ordered life vest to prevent sudden cardiac arrest though patient still wants to think about it. Dr. Wolff had attempted access site via right femoral and right radial but unable to pass abdominal aorta and right subclavian probably due to atherosclerosis. Successful LHC via left radial on 06/02/25 showing 10% mid LAD stenosis. May d/c home from cardiology standpoint and f/u with me in 1 week. Subjective Date/time seen: 06/04/25 08:48 Interval history: Denies chest pain or sob. Exam Const: General: cooperative, healthy appearing and comfortable Orientation/consciousness: oriented to person, oriented to place and oriented to time Resp: Auscultation: clear to auscultation bilaterally, no crackles, no rales, no rhonchi and no wheezes Cardio: Rate: regular rate Rhythm: abnormal rhythm Heart sounds: no murmurs Peripheral pulses: dorsalis pedis present Neuro: General: oriented to person, oriented to place and oriented to time Extrem: Right lower extremity: no edema Left lower extremity: no edema Objective Data Vital Signs Vital Signs: Vital Signs - 24 hr 06/03/25 08:49 06/03/25 09:30 06/03/25 10:00 Temperature Pulse Rate 86 86 Respiratory Rate Blood Pressure Pulse Oximetry Oxygen Delivery Nasal Cannula Oxygen Flow Rate 2 06/03/25 12:00 06/03/25 12:00 06/03/25 12:02 Temperature 97.3 F L Pulse Rate 94 79 Respiratory Rate 24 H Blood Pressure 116/68 Pulse Oximetry 99 Oxygen Delivery Nasal Cannula Oxygen Flow Rate 1 06/03/25 14:00 06/03/25 16:00 06/03/25 16:00 Temperature 98.1 F Pulse Rate 88 92 88 Respiratory Rate 24 H Blood Pressure 130/73 Pulse Oximetry 97 Oxygen Delivery Oxygen Flow Rate 06/03/25 18:00 06/03/25 20:00 06/03/25 20:00 Temperature 97.7 F Pulse Rate 92 127 H Respiratory Rate 20 Blood Pressure 145/95 H Pulse Oximetry 90 96 Oxygen Delivery Nasal Cannula Oxygen Flow Rate 3 06/03/25 20:00 06/03/25 20:42 06/03/25 20:43 Temperature Pulse Rate 90 100 Respiratory Rate 20 Blood Pressure Pulse Oximetry 95 Oxygen Delivery Nasal Cannula Oxygen Flow Rate 2 06/03/25 20:47 06/03/25 21:35 06/03/25 21:36 Temperature Pulse Rate 87 102 H 100 Respiratory Rate 20 Blood Pressure Pulse Oximetry Oxygen Delivery Oxygen Flow Rate 06/04/25 00:00 06/04/25 00:00 06/04/25 04:00 Temperature 97.7 F Pulse Rate 82 91 85 Respiratory Rate 20 Blood Pressure 118/69 Pulse Oximetry 95 Oxygen Delivery Oxygen Flow Rate 06/04/25 04:00 06/04/25 05:58 06/04/25 06:01 Temperature 97.9 F Pulse Rate 75 86 Respiratory Rate 18 22 H Blood Pressure 122/62 Pulse Oximetry 97 96 Oxygen Delivery Nasal Cannula Oxygen Flow Rate 5 06/04/25 07:40 06/04/25 07:40 06/04/25 08:00 Temperature 97.5 F L Pulse Rate 86 86 62 Respiratory Rate 20 20 20 Blood Pressure 111/71 Pulse Oximetry 98 91 Oxygen Delivery Nasal Cannula Oxygen Flow Rate 5 Intake/Output Intake/Output: Intake & Output 06/01/25 06/02/25 06/03/25 06/04/25 23:59 23:59 23:59 23:59 Intake Total 1109.4 973.3 1620 350 Output Total 1230 1225 950 600 Balance -120.6 -251.7 670 -250 Meds/Results Medications: Active Medications Generic Name Dose Route Start Last Admin Trade Name Freq PRN Reason Stop Dose Admin Acetaminophen 650 mg 05/27/25 23:08 05/29/25 10:37 Acetaminophen 325 Mg Tablet PO 650 mg Q4H PRN Administration Mild Pain (1-3) or Fever Hydrocodone Bitart/Acetaminophen 1 tab 05/28/25 03:53 Hydrocodone/Acetaminophen (*Crx) 7.5-325 Mg Tablet PO Q6H PRN pain 4-10 Albuterol 2 puff 05/28/25 22:11 05/30/25 10:28 Albuterol Sulfate (*Sp) Aerosol 1 Puff INHALATION 2 puff Q6H PRN Administration shortness of breath or wheezing Albuterol/Ipratropium 3 ml 06/03/25 08:17 06/04/25 06:01 Ipratropium 0.5 Mg/Albuterol Sulfate 2.5 Mg Ampul.Neb 3 Ml INHALATION 3 ml Q6HRT PRN Administration Shortness Of Breath Amiodarone HCl 200 mg 05/28/25 21:00 06/03/25 21:36 Amiodarone Hcl 200 Mg Tablet PO 200 mg Q12HR BERNARDA Administration Amoxicillin/Clavulanate Potassium 1 tablet 06/01/25 21:00 06/03/25 21:35 Amoxicillin/Clavulanate K 875-125 Mg Tab PO 06/04/25 20:59 1 tablet Q12HR BERNARDA Administration Apixaban 2.5 mg 06/03/25 09:00 06/03/25 21:36 Apixaban 2.5 Mg Tablet PO 2.5 mg Q12HR BERNARDA Administration Aspirin 81 mg 05/28/25 09:00 06/03/25 08:13 Aspirin 81 Mg Enteric Tablet PO 81 mg QAM BERNARDA Administration Atorvastatin Calcium 40 mg 06/03/25 09:00 06/03/25 08:13 Atorvastatin 40 Mg Tablet PO 40 mg DAILY BERNARDA Administration Calcium Carbonate 400 mg 05/28/25 03:52 Calcium Carbonate (Tums) 500 Mg (200 Mg Elemental) PO Q6H PRN Indigestion Cyanocobalamin 500 mcg 05/28/25 09:00 06/03/25 08:13 Cyanocobalamin 500 Mcg Tablet PO 500 mcg DAILY BERNARDA Administration Digoxin 125 mcg 05/28/25 09:00 06/03/25 08:13 Digoxin Tab 125 Mcg Tablet PO 125 mcg QAM BERNARDA Administration Empagliflozin 10 mg 05/29/25 09:00 06/03/25 08:13 Empagliflozin 10 Mg Tablet PO 10 mg DAILY BERNARDA Administration Fish Oil 1 gm 05/28/25 09:00 06/03/25 08:13 [place] 3 Polyunsat Fatty Acids 1 Gm Cap PO 1 gm DAILY BERNARDA Administration Furosemide 20 mg 05/29/25 09:00 06/03/25 08:13 Furosemide 20 Mg Tablet PO 20 mg DAILY BERNARDA Administration Guaifenesin 600 mg 05/30/25 21:00 06/03/25 21:36 Guaifenesin 12 Hr 600 Mg Tabcr PO 600 mg Q12HR BERNARDA Administration Lactobacillus Acidophilus 1 tablet 05/28/25 09:00 06/03/25 08:13 Acidophilus/Bulgaricus Chewable Tablet BY MOUTH 1 tablet DAILY BERNARDA Administration Melatonin 3 mg 05/29/25 22:03 06/02/25 01:38 Melatonin 3 Mg Tablet PO 3 mg HS PRN Administration Insomnia Metoprolol Succinate 100 mg 05/28/25 21:00 06/03/25 21:35 Metoprolol Succinate Ext Rel 100 Mg Tabcr PO 100 mg QHS BERNARDA Administration Multivitamins Therapeutic 1 tablet 05/28/25 09:00 06/03/25 08:13 Multivitamins Therapeutic Tab (*Bkc) PO 1 tablet DAILY BERNARDA Administration Ondansetron HCl 4 mg 05/27/25 23:08 Ondansetron Inj 4 Mg/2 Ml Vial IV PUSH Q4H PRN Nausea Tamsulosin HCl 0.4 mg 05/28/25 21:00 06/03/25 21:35 Tamsulosin Hcl 0.4 Mg Capsule PO 0.4 mg QHS BERNARDA Administration Umeclidinium [place] 1 puff 05/28/25 08:00 06/04/25 07:39 Umeclidinium [place] 62.5 Mcg Ellipta INHALATION 1 puff DAILYRT BERNARDA Administration Radiology Results: ITS Impressions Chest X-Ray 05/27/25 22:43 IMPRESSION: Trace bilateral pleural effusions with adjacent compressive atelectasis. Chest/Abdomen/Pelvis CTA 05/27/25 22:44 IMPRESSION: No pulmonary embolus. No aortic dissection. Small bilateral pleural effusions with adjacent compressive atelectasis. Gallbladder distention with mural thickening and trace surrounding inflammatory change, which may be related to vascular congestion and fluid overload rather than inflammatory gallbladder disease, for which clinical (and serologic) correlation is needed. Internal Auditory Canal CT 05/28/25 08:21 IMPRESSION: No definite abnormality seen in both temporal bones. Renal Ultrasound 05/28/25 21:32 IMPRESSION: No hydronephrosis or renal calculi. No findings to suggest medical renal disease. Simple cyst within the interpolar region of the right kidney, for which no further follow-up is needed. Abdomen Ultrasound 05/29/25 12:51 IMPRESSION: 1. Cholelithiasis and prominent edematous-appearing gallbladder wall thickening but with negative sonographic Snowden's sign which is equivocal for acute cholecystitis. No significant surrounding infiltration and was evident on the prior CT and the gallbladder wall thickening could potentially also be secondary to heart failure, liver disease, renal failure or other generalized edema forming states. Could consider HIDA scan for further evaluation as clinically indicated. Labs Labs: Laboratory Results - last 24 hr 06/04/25 06/04/25 04:00 08:27 Sodium 131 L Potassium 5.2 H 5.4 H Chloride 95 L Carbon Dioxide 29 Anion Gap 7 BUN 29 H Creatinine 1.32 H Estim Creat Clear Calc 40 Estimated GFR 52 L Glucose 96 Calcium 8.7
[2025-06-04] MEDS: FUROSEMIDE 20 MG TABLET PO (08:56)
[2025-06-04] MEDS: CYANOCOBALAMIN 500 MCG TABLET PO (08:56)
[2025-06-04] MEDS: OMEGA 3 POLYUNSAT FATTY ACIDS 1 GM CAP PO (08:56)
[2025-06-04] MEDS: AMIODARONE HCL 200 MG TABLET PO ×2 (08:56→20:34)
[2025-06-04] MEDS: ACIDOPHILUS/BULGARICUS CHEWABLE TABLET 1 TABLET BY MOUTH (08:56)
[2025-06-04] MEDS: EMPAGLIFLOZIN 10 MG TABLET PO (08:57)
[2025-06-04] MEDS: MULTIVITAMINS THERAPEUTIC TAB (*BKC) 1 TABLET PO (08:57)
[2025-06-04] MEDS: DIGOXIN TAB 125 MCG TABLET PO (08:57)
[2025-06-04] MEDS: APIXABAN 2.5 MG TABLET PO ×2 (08:57→20:33)
[2025-06-04] MEDS: ASPIRIN 81 MG ENTERIC TABLET PO (08:57)
[2025-06-04] MEDS: ATORVASTATIN 40 MG TABLET PO (08:57)
[2025-06-04] MEDS: guaiFENesin 12 HR 600 MG TABCR PO ×2 (08:57→20:34)
--- NOTE | 2025-06-04 13:45 | PC.NURSE ---
This patient, Dickson Sorensen, was received from [facility] 210 on 06/05/25 at 1345. Patient/family oriented to unit policies and routines. Report per ISHAN Herrera
--- NOTE | 2025-06-04 19:14 | P.PNIM_ITS ---
Progress Note: A&P Assessment and Plan (1) Non-ST elevation myocardial infarction (NSTEMI): Code(s): I21.4 - Non-ST elevation (NSTEMI) myocardial infarction Status: Acute (2) Atrial fibrillation with rapid ventricular response: Code(s): I48.91 - Unspecified atrial fibrillation Status: Acute (3) Acute kidney injury: Code(s): N17.9 - Acute kidney failure, unspecified Status: Acute (4) Elevated liver enzymes: Code(s): R74.8 - Abnormal levels of other serum enzymes Status: Acute (5) Heart failure with preserved ejection fraction: Code(s): I50.30 - Unspecified diastolic (congestive) heart failure Status: Acute Plan NSTEMI D-dimer 0.99, proBNP >30K. EKG showed T-wave inversions concerning for ischemia in the inferior lateral leads. CTA of the chest, abdomen, and pelvis was negative for pulmonary embolism and aortic dissection. Small bilateral pleural effusions with adjacent compressive atelectasis was noted as well as gallbladder distension with mural thickening and trace surrounding inflammatory change which may be related to vascular congestion and fluid overload. Serial troponin 5.34-5.6 6-5.5 Echo showing EF 15-20% with findings consistent with Takotsubo CMP (Echo 05/03/25 showing EF 55-60%). . Heparin drip started. Cardiology consulted and C attempted 06/01/25 but unsuccessful due to tortuosity of vessels. Repeat C 06/02 showing no significant obstructive CAD seen. Heparin gtt stopped. Continue Toprol, ASA, statin. AFib - A few hours after presentation, he went into rapid atrial fibrillation He was rate controlled since receiving an IV diltiazem bolus. During his most recent hospitalization, there were difficulties controlling his rate and diltiazem was increased to 360 mg daily. He has been out of this medication for several days however. Additionally, he seems to be confused about whether not he is supposed to be taking apixaban and he states that he has not been taking it for unclear reasons. He was started on a heparin drip for NSTEMI as above. He remains on digoxin. Digoxin level 1.1. Amiodarone started and diltiazem stopped. Continue Eliquis Acute systolic CHF As above. Echo showing EF 15-20% that is down from 55-60% last month. He did receive a dose of Lasix and remains on oral Lasix daily. Fluid status stable. Continue GDMT with Empagliflozin, Toprol XL. Consider adding spironolactone and Entresto but having elevated potassium. LifeVest offered but patient refusing. He voices understanding of the benefits of the LifeVest and the risks of refusing to use this Acute bronchitis - elevated leukocytosis and chest x-ray with small bilateral pleural effusion with adjacent compressive atelectasis. No obvious pneumonia on CTA. Procalcitonin 0.6. Zosyn added but now changed to Augmentin. Mucinex added More hypoxic so will check ABG, CXR. Resume nebs. Augmentin to complete a course WILLIAM and CKD stage 3 Baseline creatinine 1.2 with admission creatinine 1.8. Creatinine improving Follow BPH On Flomax Elevated liver enzymes Abd ultrasound showing cholelithiasis and prominent edematous-appearing gallbladder wall thickening but with negative sonographic Snowden's sign which is equivocal for acute cholecystitis. He does have a history of hepatitis-C No other evidence of acute cholecystitis and suspect GB edema related to heart failure. LFTs normal. Follow. COPD with chronic resp failure On 2L at night at home but wearing O2 all time here. Able to be weaned to 1L but now up to 4L. Home O2 evaluation when more [place]. Continue Duonebs, CPT Obstructive sleep apnea Noncompliant with CPAP Cerebral aneurysm status post coiling. Stable Continue PT/OT DVT prophylaxis - Eliquis Code status - full Subjective Date/time seen: 06/04/25 19:14 Interval history: 79yo male with AFib, HTN, hepatitis-C, CKD stage 3, COPD with chronic respiratory failure on 2 L, prediabetes, JOYCE, BPH, and cerebral aneurysm status post coil who presented with several complaints including general malaise and weakness. More SOB this morning with worsening O2 requirement. No odynophagia or dysphagia. No Cp. +cough.Was up to the chair today. Exam Narrative: AF 97.6 118/73 79 20 97% 4L Gen - NARD Chest - coarse BS. CV -irregularly irregular Abd - Soft, NT/ND, Positive BS Ext - trace pedal edema Neuro - Alert and appropriate Psych - Nml mood and affect Skin - Warm and dry Objective Data Vital Signs Vital Signs: Vital Signs - 24 hr 06/03/25 20:00 06/03/25 20:00 06/03/25 20:00 Temperature 97.7 F Pulse Rate 127 H 90 Respiratory Rate 20 Blood Pressure 145/95 H Pulse Oximetry 90 96 Oxygen Delivery Nasal Cannula Oxygen Flow Rate 3 06/03/25 20:42 06/03/25 20:43 06/03/25 20:47 Temperature Pulse Rate 100 87 Respiratory Rate 20 20 Blood Pressure Pulse Oximetry 95 Oxygen Delivery Nasal Cannula Oxygen Flow Rate 2 06/03/25 21:35 06/03/25 21:36 06/04/25 00:00 Temperature Pulse Rate 102 H 100 82 Respiratory Rate Blood Pressure Pulse Oximetry Oxygen Delivery Oxygen Flow Rate 06/04/25 00:00 06/04/25 04:00 06/04/25 04:00 Temperature 97.7 F 97.9 F Pulse Rate 91 85 75 Respiratory Rate 20 18 Blood Pressure 118/69 122/62 Pulse Oximetry 95 97 Oxygen Delivery Oxygen Flow Rate 06/04/25 05:58 06/04/25 06:01 06/04/25 07:40 Temperature Pulse Rate 86 86 Respiratory Rate 22 H 20 Blood Pressure Pulse Oximetry 96 Oxygen Delivery Nasal Cannula Oxygen Flow Rate 5 06/04/25 07:40 06/04/25 08:00 06/04/25 08:00 Temperature 97.5 F L Pulse Rate 86 62 Respiratory Rate 20 20 Blood Pressure 111/71 Pulse Oximetry 98 91 96 Oxygen Delivery Nasal Cannula Nasal Cannula Oxygen Flow Rate 5 4 06/04/25 08:56 06/04/25 08:57 06/04/25 11:45 Temperature 97.9 F Pulse Rate 73 73 56 L Respiratory Rate 20 Blood Pressure 118/69 Pulse Oximetry 100 Oxygen Delivery Oxygen Flow Rate 06/04/25 12:00 06/04/25 13:50 06/04/25 15:24 Temperature 97.6 F Pulse Rate 95 76 Respiratory Rate 20 Blood Pressure 118/73 Pulse Oximetry 97 97 Oxygen Delivery Nasal Cannula Oxygen Flow Rate 4 06/04/25 16:00 Temperature Pulse Rate 79 Respiratory Rate Blood Pressure Pulse Oximetry Oxygen Delivery Oxygen Flow Rate Intake/Output Intake/Output: Intake & Output 06/01/25 06/02/25 06/03/25 06/04/25 23:59 23:59 23:59 23:59 Intake Total 1109.4 973.3 1620 2050 Output Total 1230 9050 224 6383 Balance -120.6 -251.7 670 1050 Meds/Results Medications: Active Medications Generic Name Dose Route Start Last Admin Trade Name Freq PRN Reason Stop Dose Admin Acetaminophen 650 mg 05/27/25 23:08 05/29/25 10:37 Acetaminophen 325 Mg Tablet PO 650 mg Q4H PRN Administration Mild Pain (1-3) or Fever Hydrocodone Bitart/Acetaminophen 1 tab 05/28/25 03:53 Hydrocodone/Acetaminophen (*Crx) 7.5-325 Mg Tablet PO Q6H PRN pain 4-10 Albuterol 2 puff 05/28/25 22:11 05/30/25 10:28 Albuterol Sulfate (*Sp) Aerosol 1 Puff INHALATION 2 puff Q6H PRN Administration shortness of breath or wheezing Albuterol/Ipratropium 3 ml 06/03/25 08:17 06/04/25 06:01 Ipratropium 0.5 Mg/Albuterol Sulfate 2.5 Mg Ampul.Neb 3 Ml INHALATION 3 ml Q6HRT PRN Administration Shortness Of Breath Amiodarone HCl 200 mg 05/28/25 21:00 06/04/25 08:56 Amiodarone Hcl 200 Mg Tablet PO 200 mg Q12HR BERNARDA Administration Amoxicillin/Clavulanate Potassium 1 tablet 06/01/25 21:00 06/04/25 08:56 Amoxicillin/Clavulanate K 875-125 Mg Tab PO 06/04/25 20:59 1 tablet Q12HR BERNARDA Administration Apixaban 2.5 mg 06/03/25 09:00 06/04/25 08:57 Apixaban 2.5 Mg Tablet PO 2.5 mg Q12HR BERNARDA Administration Aspirin 81 mg 05/28/25 09:00 06/04/25 08:57 Aspirin 81 Mg Enteric Tablet PO 81 mg QAM BERNARDA Administration Atorvastatin Calcium 40 mg 06/03/25 09:00 06/04/25 08:57 Atorvastatin 40 Mg Tablet PO 40 mg DAILY BERNARDA Administration Calcium Carbonate 400 mg 05/28/25 03:52 Calcium Carbonate (Tums) 500 Mg (200 Mg Elemental) PO Q6H PRN Indigestion Cyanocobalamin 500 mcg 05/28/25 09:00 06/04/25 08:56 Cyanocobalamin 500 Mcg Tablet PO 500 mcg DAILY BERNARDA Administration Digoxin 125 mcg 05/28/25 09:00 06/04/25 08:57 Digoxin Tab 125 Mcg Tablet PO 125 mcg QAM BERNARDA Administration Empagliflozin 10 mg 05/29/25 09:00 06/04/25 08:57 Empagliflozin 10 Mg Tablet PO 10 mg DAILY BERNARDA Administration Fish Oil 1 gm 05/28/25 09:00 06/04/25 08:56 [place] 3 Polyunsat Fatty Acids 1 Gm Cap PO 1 gm DAILY BERNARDA Administration Furosemide 20 mg 05/29/25 09:00 06/04/25 08:56 Furosemide 20 Mg Tablet PO 20 mg DAILY BERNARDA Administration Guaifenesin 600 mg 05/30/25 21:00 06/04/25 08:57 Guaifenesin 12 Hr 600 Mg Tabcr PO 600 mg Q12HR BERNARDA Administration Lactobacillus Acidophilus 1 tablet 05/28/25 09:00 06/04/25 08:56 Acidophilus/Bulgaricus Chewable Tablet BY MOUTH 1 tablet DAILY BERNARDA Administration Melatonin 3 mg 05/29/25 22:03 06/02/25 01:38 Melatonin 3 Mg Tablet PO 3 mg HS PRN Administration Insomnia Metoprolol Succinate 100 mg 05/28/25 21:00 06/03/25 21:35 Metoprolol Succinate Ext Rel 100 Mg Tabcr PO 100 mg QHS [facility] Administration Multivitamins Therapeutic 1 tablet 05/28/25 09:00 06/04/25 08:57 Multivitamins Therapeutic Tab (*Bkc) PO 1 tablet DAILY BERNARDA Administration Ondansetron HCl 4 mg 05/27/25 23:08 Ondansetron Inj 4 Mg/2 Ml Vial IV PUSH Q4H PRN Nausea Tamsulosin HCl 0.4 mg 05/28/25 21:00 06/03/25 21:35 Tamsulosin Hcl 0.4 Mg Capsule PO 0.4 mg QHS [facility] Administration Umeclidinium [place] 1 puff 05/28/25 08:00 06/04/25 07:39 Umeclidinium [place] 62.5 Mcg Ellipta INHALATION 1 puff DAILYRT BERNARDA Administration Radiology Results: ITS Impressions Chest X-Ray 05/27/25 22:43 IMPRESSION: Trace bilateral pleural effusions with adjacent compressive atelectasis. Chest/Abdomen/Pelvis CTA 05/27/25 22:44 IMPRESSION: No pulmonary embolus. No aortic dissection. Small bilateral pleural effusions with adjacent compressive atelectasis. Gallbladder distention with mural thickening and trace surrounding inflammatory change, which may be related to vascular congestion and fluid overload rather than inflammatory gallbladder disease, for which clinical (and serologic) correlation is needed. Internal Auditory Canal CT 05/28/25 08:21 IMPRESSION: No definite abnormality seen in both temporal bones. Renal Ultrasound 05/28/25 21:32 IMPRESSION: No hydronephrosis or renal calculi. No findings to suggest medical renal disease. Simple cyst within the interpolar region of the right kidney, for which no further follow-up is needed. Abdomen Ultrasound 05/29/25 12:51 IMPRESSION: 1. Cholelithiasis and prominent edematous-appearing gallbladder wall thickening but with negative sonographic Snowden's sign which is equivocal for acute cholecystitis. No significant surrounding infiltration and was evident on the prior CT and the gallbladder wall thickening could potentially also be secondary to heart failure, liver disease, renal failure or other generalized edema forming states. Could consider HIDA scan for further evaluation as clinically indicated. Labs Labs: Laboratory Results - last 24 hr 06/04/25 06/04/25 04:00 08:27 Sodium 131 L Potassium 5.2 H 5.4 H Chloride 95 L Carbon Dioxide 29 Anion Gap 7 BUN 29 H Creatinine 1.32 H Estim Creat Clear Calc 40 Estimated GFR 52 L Glucose 96 Calcium 8.7
[2025-06-04] MEDS: SODIUM ZIRCONIUM CYCLOSILICATE 5 GM POWD.PACK PO (20:33)
[2025-06-04] MEDS: TAMSULOSIN HCL 0.4 MG CAPSULE PO (20:34)
[2025-06-04] MEDS: METOPROLOL SUCCINATE EXT REL 100 MG TABCR PO (20:34)
[2025-06-04] MEDS: MELATONIN 3 MG TABLET PO (20:41)
[2025-06-04] MEDS: DOXYCYCLINE HYCLATE 100 MG TABLET PO (22:05)
[2025-06-04 22:22] LABS: Alveolar/Arterial O2 Gradient 93.5 mmHg; Fractional Inspired Oxygen 32 %; HCO3 ABG 30.8 mEq/l (22.0-26.0); Liters per Minute 3.0 LPM; Oxygen Content ABG 19.1 %vol (16.0-22.0); Oxygen Saturation ABG 95.1 % (95.0-100.0); PCO2 ABG 50.3 mmHg (35.0-45.0); PO2 ABG 75.8 mmHg (80.0-100.0); PO2 FiO2 Ratio Arterial Blood 2.37 %; Site Drawn RIGHT BRACHIAL
[2025-06-04 22:29] LABS: MRSA (PCR) NOT DETECTED (NOT DETECTE)
--- NOTE | 2025-06-04 22:33 | PC.NURSE ---
Notified Dr. Mccallum of ABG and MRSA results. New orders received for IV ceftriaxone and PO Doxy.
[2025-06-05] VITALS (21 sets, daily range): BP systolic 113–138; BP diastolic 67–82; PULSE 69–111; RESP 18–22; TEMP 36.6–36.9; O2SAT 88–98
[2025-06-05 06:27] LABS: Anion Gap 4 mmol/L (4-12); Blood Urea Nitrogen 28 mg/dL (9-20); CRP 1.2 mg/dL (<1.0); Calcium 8.5 mg/dL (8.4-10.2); Carbon Dioxide 30 mmol/L (22-30); Chloride 96 mmol/L (98-107); Estimated CRCL calculation 42 ml/min; Estimated Glomerular Filt Rate 56; Glucose 100 mg/dL (65-110); Potassium 4.5 mmol/L (3.4-5.0); Sodium 130 mmol/L (137-145)
[2025-06-05 07:17] LABS: Hematocrit 42.4 % (42.0-52.0); Hemoglobin 13.6 g/dL (14.0-18.0); Immature Granulocyte Percent A 0.7 % (0-0.5); Lymphocytes Absolute Auto 1.35 K/mm3 (0.9-3.2); Mean Corpuscular HGB Conc 32.1 g/dl (32-36); Mean Corpuscular Hemoglobin 31.0 pg (26-34); Mean Corpuscular Volume 96.6 fl (80-100); Nucleated Red Blood Cells Absolute Auto 0.000 K/mm3 (0.0-0.012); Nucleated Red Blood Cells Perc 0.0 % (0.0-0.2); Platelet Count Result 156 k/mm3 (150-375); Red Blood Count 4.39 M/mm3 (4.6-6.20); White Blood Count 12.0 K/mm3 (4.5-10.0)
[2025-06-05] MEDS: UMECLIDINIUM BROMIDE 62.5 MCG ELLIPTA 1 PUFF INHALATION (07:20)
[2025-06-05 08:33] LABS: Procalcitonin 0.1 ng/mL
[2025-06-05] MEDS: CEFEPIME 2 GM/NS 50 ML 2 GM/50 ML BAG IVPB ×2 (08:51→21:02)
[2025-06-05] MEDS: ATORVASTATIN 40 MG TABLET PO (08:52)
[2025-06-05] MEDS: ACIDOPHILUS/BULGARICUS CHEWABLE TABLET 1 TABLET BY MOUTH (08:52)
[2025-06-05] MEDS: EMPAGLIFLOZIN 10 MG TABLET PO (08:52)
[2025-06-05] MEDS: ASPIRIN 81 MG ENTERIC TABLET PO (08:52)
[2025-06-05] MEDS: CYANOCOBALAMIN 500 MCG TABLET PO (08:53)
[2025-06-05] MEDS: guaiFENesin 12 HR 600 MG TABCR PO ×2 (08:53→21:05)
[2025-06-05] MEDS: DIGOXIN TAB 125 MCG TABLET PO (08:53)
[2025-06-05] MEDS: APIXABAN 2.5 MG TABLET PO ×2 (08:53→21:05)
[2025-06-05] MEDS: AMIODARONE HCL 200 MG TABLET PO ×2 (08:53→21:05)
[2025-06-05] MEDS: SODIUM ZIRCONIUM CYCLOSILICATE 5 GM POWD.PACK PO (10:01)
[2025-06-05] MEDS: VANCOMYCIN 2,000 MG/NS 500 ML 2,000 MG/500 ML BAG 250 MG IVPB (10:50)
[2025-06-05] MEDS: FUROSEMIDE INJ 40 MG/4 ML VIAL IV PUSH ×2 (11:08→17:59)
--- NOTE | 2025-06-05 11:22 | PM.IMPN ---
Progress Note: A&P Assessment and Plan (1) Acute and chronic respiratory failure: Code(s): J96.20 - Acute and chronic respiratory failure, unspecified whether with hypoxia or hypercapnia Status: Acute Assessment and Plan: Patient with COPD with chronic resp failure on 2L at night at home. Has JOYCE but noncompliant with treatment Patient with elevated leukocytosis and CXR with small bilateral pleural effusion with adjacent compressive atelectasis. No obvious pneumonia on CTA. Procalcitonin 0.6. Zosyn added for acute bronchitis but changed to Augmentin. Mucinex added More hypoxic. Was wearing O2 all time here at 2L. Able to be weaned to 1L but now up to 4L. ABG 7.40/50/76 on 3L. CXR showing atelecatasis vs PNA KYLE and bilateral LL with bilateral pleural effusion. Abx started. Repeat CXR showing pulm vascular congestion with improved aeration. MRSA nasal swab negative. CRP 1.2. WBC 12K Continue CPT. Lasix IV x 2 doses. Wean O2 as tolerated. Continue IV abx. (2) Non-ST elevation myocardial infarction (NSTEMI): Code(s): I21.4 - Non-ST elevation (NSTEMI) myocardial infarction Status: Acute Assessment and Plan: D-dimer 0.99, proBNP >30K. EKG showed T-wave inversions concerning for ischemia in the inferior lateral leads. CTA of the chest, abdomen, and pelvis was negative for pulmonary embolism and aortic dissection. Small bilateral pleural effusions with adjacent compressive atelectasis was noted as well as gallbladder distension with mural thickening and trace surrounding inflammatory change which may be related to vascular congestion and fluid overload. Serial troponin 5.34-5.6-5.5 Echo showing EF 15-20% with findings consistent with [facility] CMP (Echo 05/03/25 showing EF 55-60%). Heparin drip started. Cardiology consulted and [facility] attempted 06/01/25 but unsuccessful due to tortuosity of vessels. Repeat C 06/02 showing no significant obstructive CAD seen. Heparin gtt stopped. Continue Toprol, ASA, statin. (3) Atrial fibrillation with rapid ventricular response: Code(s): I48.91 - Unspecified atrial fibrillation Status: Acute Assessment and Plan: AFib - A few hours after presentation, he went into rapid atrial fibrillation He was rate controlled since receiving an IV diltiazem bolus. During his most recent hospitalization, there were difficulties controlling his rate and diltiazem was increased to 360 mg daily. He has been out of this medication for several days however. Additionally, he seems to be confused about whether not he is supposed to be taking apixaban and he states that he has not been taking it for unclear reasons. He was started on a heparin drip for NSTEMI as above. He remains on digoxin. Digoxin level 1.1. Amiodarone started and diltiazem stopped. Continue Eliquis (4) Heart failure with preserved ejection fraction: Code(s): I50.30 - Unspecified diastolic (congestive) heart failure Status: Acute Assessment and Plan: Acute systolic CHF As above. Echo showing EF 15-20% that is down from 55-60% last month. He did receive a dose of Lasix and remains on oral Lasix daily. Fluid status stable. Continue GDMT with Empagliflozin, Toprol XL. Consider adding spironolactone and Entresto but having elevated potassium. LifeVest offered but patient refusing. He voices understanding of the benefits of the LifeVest and the risks of refusing to use this (5) Acute kidney injury: Code(s): N17.9 - Acute kidney failure, unspecified Status: Acute Assessment and Plan: WILLIAM and CKD stage 3 Baseline creatinine 1.2 with admission creatinine 1.8. Creatinine improving and back down to baseline Follow (6) Elevated liver enzymes: Code(s): R74.8 - Abnormal levels of other serum enzymes Status: Acute Assessment and Plan: Elevated liver enzymes Abd ultrasound showing cholelithiasis and prominent edematous-appearing gallbladder wall thickening but with negative sonographic Snowden's sign which is equivocal for acute cholecystitis. He does have a history of hepatitis-C No other evidence of acute cholecystitis and suspect GB edema related to heart failure. LFTs normal. Follow. Plan BPH - On Flomax Cerebral aneurysm status post coiling - Stable. Continue PT/OT DVT prophylaxis - Eliquis Code status - full Subjective Date/time seen: 06/05/25 11:22 Interval history: 79yo male with AFib, HTN, hepatitis-C, CKD stage 3, COPD with chronic respiratory failure on 2 L, prediabetes, JOYCE, BPH, and cerebral aneurysm status post coil who presented with several complaints including general malaise and weakness. No CP. SOB better. Minimally productive cough of linder sputum. Exam Narrative: AF 98.1 120/70 72 22 96% 2L Gen - NARD Chest - diffuse expiratory rhonchi CV -irregularly irregular. Tele showing AFib but no acute dysrhythmias Abd - Soft, NT/ND, Positive BS Ext - no pedal edema Psych - Nml mood and affect Skin - Warm and dry Objective Data Vital Signs Vital Signs: Vital Signs - 24 hr 06/04/25 11:45 06/04/25 12:00 06/04/25 13:50 Temperature 97.9 F Pulse Rate 56 L 95 Respiratory Rate 20 Blood Pressure 118/69 Pulse Oximetry 100 97 Oxygen Delivery Nasal Cannula Oxygen Flow Rate 4 Fraction of Inspired Oxygen 06/04/25 15:24 06/04/25 16:00 06/04/25 20:00 Temperature 97.6 F 97.9 F Pulse Rate 76 79 93 Respiratory Rate 20 18 Blood Pressure 118/73 119/69 Pulse Oximetry 97 92 Oxygen Delivery Oxygen Flow Rate Fraction of Inspired Oxygen 06/04/25 20:00 06/04/25 20:00 06/04/25 20:34 Temperature Pulse Rate 89 96 94 Respiratory Rate 20 20 Blood Pressure Pulse Oximetry 95 Oxygen Delivery Nasal Cannula Oxygen Flow Rate 3 Fraction of Inspired Oxygen 24 06/04/25 20:34 06/04/25 20:34 06/04/25 20:39 Temperature Pulse Rate 79 79 94 Respiratory Rate Blood Pressure Pulse Oximetry 95 Oxygen Delivery Nasal Cannula Oxygen Flow Rate 4 Fraction of Inspired Oxygen 06/04/25 20:48 06/05/25 00:00 06/05/25 00:00 Temperature 97.8 F Pulse Rate 89 70 70 Respiratory Rate 20 18 Blood Pressure 113/67 Pulse Oximetry 94 Oxygen Delivery Oxygen Flow Rate Fraction of Inspired Oxygen 06/05/25 02:45 06/05/25 02:53 06/05/25 04:00 Temperature Pulse Rate 77 79 88 Respiratory Rate 18 18 Blood Pressure Pulse Oximetry Oxygen Delivery Oxygen Flow Rate Fraction of Inspired Oxygen 06/05/25 04:52 06/05/25 07:15 06/05/25 07:15 Temperature 97.8 F Pulse Rate 69 76 76 Respiratory Rate 18 20 20 Blood Pressure 117/73 Pulse Oximetry 91 96 Oxygen Delivery Nasal Cannula Oxygen Flow Rate 2 Fraction of Inspired Oxygen 28 06/05/25 07:22 06/05/25 08:00 06/05/25 08:00 Temperature 98.1 F Pulse Rate 78 72 Respiratory Rate 20 22 H Blood Pressure 120/70 Pulse Oximetry 96 96 Oxygen Delivery Nasal Cannula Oxygen Flow Rate 2 Fraction of Inspired Oxygen 06/05/25 08:00 06/05/25 08:53 06/05/25 08:53 Temperature Pulse Rate 83 72 72 Respiratory Rate Blood Pressure Pulse Oximetry Oxygen Delivery Oxygen Flow Rate Fraction of Inspired Oxygen Intake/Output Intake/Output: Intake & Output 06/02/25 06/03/25 06/04/25 06/05/25 23:59 23:59 23:59 23:59 Intake Total 973.3 1620 2100 680 Output Total 3583 756 2434 200 Balance -251.7 670 1100 480 Meds/Results Medications: Active Medications Generic Name Dose Route Start Last Admin Trade Name Freq PRN Reason Stop Dose Admin Acetaminophen 650 mg 05/27/25 23:08 05/29/25 10:37 Acetaminophen 325 Mg Tablet PO 650 mg Q4H PRN Administration Mild Pain (1-3) or Fever Hydrocodone Bitart/Acetaminophen 1 tab 05/28/25 03:53 Hydrocodone/Acetaminophen (*Crx) 7.5-325 Mg Tablet PO Q6H PRN pain 4-10 Albuterol 2 puff 05/28/25 22:11 05/30/25 10:28 Albuterol Sulfate (*Sp) Aerosol 1 Puff INHALATION 2 puff Q6H PRN Administration shortness of breath or wheezing Albuterol/Ipratropium 3 ml 06/03/25 08:17 06/04/25 06:01 Ipratropium 0.5 Mg/Albuterol Sulfate 2.5 Mg Ampul.Neb 3 Ml INHALATION 3 ml Q6HRT PRN Administration Shortness Of Breath Amiodarone HCl 200 mg 05/28/25 21:00 06/05/25 08:53 Amiodarone Hcl 200 Mg Tablet PO 200 mg Q12HR BERNARDA Administration Apixaban 2.5 mg 06/03/25 09:00 06/05/25 08:53 Apixaban 2.5 Mg Tablet PO 2.5 mg Q12HR BERNARDA Administration Aspirin 81 mg 05/28/25 09:00 06/05/25 08:52 Aspirin 81 Mg Enteric Tablet PO 81 mg QAM BERNARDA Administration Atorvastatin Calcium 40 mg 06/03/25 09:00 06/05/25 08:52 Atorvastatin 40 Mg Tablet PO 40 mg DAILY BERNARDA Administration Calcium Carbonate 400 mg 05/28/25 03:52 Calcium Carbonate (Tums) 500 Mg (200 Mg Elemental) PO Q6H PRN Indigestion Cyanocobalamin 500 mcg 05/28/25 09:00 06/05/25 08:53 Cyanocobalamin 500 Mcg Tablet PO 500 mcg DAILY BERNARDA Administration Digoxin 125 mcg 05/28/25 09:00 06/05/25 08:53 Digoxin Tab 125 Mcg Tablet PO 125 mcg QAM BERNARDA Administration Empagliflozin 10 mg 05/29/25 09:00 06/05/25 08:52 Empagliflozin 10 Mg Tablet PO 10 mg DAILY BERNARDA Administration Fish Oil 1 gm 05/28/25 09:00 06/05/25 09:02 [place] 3 Polyunsat Fatty Acids 1 Gm Cap PO Not Given DAILY BERNARDA Furosemide 20 mg 05/29/25 09:00 06/04/25 08:56 Furosemide 20 Mg Tablet PO 20 mg DAILY BERNARDA Administration Furosemide 40 mg 06/05/25 09:00 06/05/25 11:08 Furosemide Inj 40 Mg/4 Ml Vial IV PUSH 40 mg BID BERNARDA Administration Guaifenesin 600 mg 05/30/25 21:00 06/05/25 08:53 Guaifenesin 12 Hr 600 Mg Tabcr PO 600 mg Q12HR BERNARDA Administration Cefepime HCl 2 gm in 50 mls @ 100 mls/hr 06/05/25 08:00 06/05/25 08:51 Maxipime 2 Gm/Ns 50 Ml IVPB 100 mls/hr Q12H BERNARDA Administration Lactobacillus Acidophilus 1 tablet 05/28/25 09:00 06/05/25 08:52 Acidophilus/Bulgaricus Chewable Tablet BY MOUTH 1 tablet DAILY BERNARDA Administration Levalbuterol HCl 1.25 mg 06/04/25 20:00 06/05/25 07:16 Levalbuterol Neb 1.25 Mg/3 Ml INHALATION 1.25 mg Q6HRT BERNARDA Administration Melatonin 3 mg 05/29/25 22:03 06/04/25 20:41 Melatonin 3 Mg Tablet PO 3 mg HS PRN Administration Insomnia Metoprolol Succinate 100 mg 05/28/25 21:00 06/04/25 20:34 Metoprolol Succinate Ext Rel 100 Mg Tabcr PO 100 mg QHS [facility] Administration Multivitamins Therapeutic 1 tablet 05/28/25 09:00 06/05/25 09:02 Multivitamins Therapeutic Tab (*Bkc) PO Not Given DAILY [facility] Ondansetron HCl 4 mg 05/27/25 23:08 Ondansetron Inj 4 Mg/2 Ml Vial IV PUSH Q4H PRN Nausea Sodium Zirconium Cyclosilicate 5 gm 06/04/25 19:20 06/05/25 10:01 Sodium Zirconium Cyclosilicate 5 Gm Powd.Pack PO 5 gm BID@1000,1800 [facility] Administration Tamsulosin HCl 0.4 mg 05/28/25 21:00 06/04/25 20:34 Tamsulosin Hcl 0.4 Mg Capsule PO 0.4 mg QHS [facility] Administration Umeclidinium Red [place] 1 puff 05/28/25 08:00 06/05/25 07:20 Umeclidinium [place] 62.5 Mcg Ellipta INHALATION 1 puff DAILYRT [facility] Administration Vancomycin HCl 1 each 06/05/25 07:00 1st Dose Sent IVPB PER PROTOCOL [facility] Radiology Results: ITS Impressions Chest/Abdomen/Pelvis CTA 05/27/25 22:44 IMPRESSION: No pulmonary embolus. No aortic dissection. Small bilateral pleural effusions with adjacent compressive atelectasis. Gallbladder distention with mural thickening and trace surrounding inflammatory change, which may be related to vascular congestion and fluid overload rather than inflammatory gallbladder disease, for which clinical (and serologic) correlation is needed. Internal Auditory Canal CT 05/28/25 08:21 IMPRESSION: No definite abnormality seen in both temporal bones. Renal Ultrasound 05/28/25 21:32 IMPRESSION: No hydronephrosis or renal calculi. No findings to suggest medical renal disease. Simple cyst within the interpolar region of the right kidney, for which no further follow-up is needed. Abdomen Ultrasound 05/29/25 12:51 IMPRESSION: 1. Cholelithiasis and prominent edematous-appearing gallbladder wall thickening but with negative sonographic Snowden's sign which is equivocal for acute cholecystitis. No significant surrounding infiltration and was evident on the prior CT and the gallbladder wall thickening could potentially also be secondary to heart failure, liver disease, renal failure or other generalized edema forming states. Could consider HIDA scan for further evaluation as clinically indicated. Chest X-Ray 06/05/25 07:34 IMPRESSION: Mild pulmonary vascular congestion with a moderate right and small left-sided pleural effusion and peribronchial thickening. Improved aeration when compared with previous days examination, as detailed above. Labs Labs: Laboratory Results - last 24 hr 06/04/25 06/04/25 06/05/25 21:04 22:09 05:48 WBC 12.0 H RBC 4.39 L Hgb 13.6 L Hct 42.4 MCV 96.6 MCH 31.0 MCHC 32.1 RDW 16.3 H Plt Count 156 MPV 12.1 H Immature Gran % (Auto) 0.7 H Neut % (Auto) 72.1 Lymph % (Auto) 11.2 L Mcclain % (Auto) 9.3 H Eos % (Auto) 6.3 H Baso % (Auto) 0.4 Lymph # (Auto) 1.35 [place] # (Auto) 1.1 H Eos # (Auto) 0.8 H Baso # (Auto) 0.1 Abs Immat Gran (auto) 0.08 H Absolute Neuts (auto) 8.7 H Absolute Nucleated RBC 0.000 Nucleated RBC % 0.0 Puncture Site Right brachial ABG pH 7.405 ABG pCO2 50.3 H ABG pO2 75.8 L ABG PO2/FiO2 Ratio 2.37 ABG HCO3 30.8 H ABG O2 Saturation 95.1 ABG O2 Content 19.1 ABG Base Excess 4.9 A-a Gradient 93.5 Oxyhemoglobin 94.1 Total Hemoglobin 14.4 O2 Delivery Device Nasal cannula O2 Liters/Min 3.0 FiO2 32 Sodium Potassium Chloride Carbon Dioxide Anion Gap BUN Creatinine Estim Creat Clear Calc Estimated GFR Glucose Calcium C-Reactive Protein Procalcitonin 0.1 Nasal MRSA (PCR) Not detected 06/05/25 05:49 WBC RBC Hgb Hct MCV MCH MCHC RDW Plt Count MPV Immature Gran % (Auto) Neut % (Auto) Lymph % (Auto) [place] % (Auto) Eos % (Auto) Baso % (Auto) Lymph # (Auto) [place]cl[place] # (Auto) Eos # (Auto) Baso # (Auto) Abs Immat Gran (auto) Absolute Neuts (auto) Absolute Nucleated RBC Nucleated RBC % Puncture Site ABG pH ABG pCO2 ABG pO2 ABG PO2/FiO2 Ratio ABG HCO3 ABG O2 Saturation ABG O2 Content ABG Base Excess A-a Gradient Oxyhemoglobin Total Hemoglobin O2 Delivery Device O2 Liters/Min FiO2 Sodium 130 L Potassium 4.5 Chloride 96 L Carbon Dioxide 30 Anion Gap 4 BUN 28 H Creatinine 1.25 Estim Creat Clear Calc 42 Estimated GFR 56 L Glucose 100 Calcium 8.5 C-Reactive Protein 1.2 H Procalcitonin Nasal MRSA (PCR)
--- NOTE | 2025-06-05 16:57 | PC.NURSE ---
On 06/05/25, the HALL SUPERVISOR, Anni Mcelroy, provided care and completed [employer] documentation on this patient. I have reviewed the HALL SUPERVISOR's documentation and agree with the findings.
--- NOTE | 2025-06-05 19:19 | PC.NURSE ---
On 06/05/25, the THREAD MACHINE OPERATOR, Anni Mcelroy, provided care and completed [employer] documentation on this patient. I have reviewed the THREAD MACHINE OPERATOR's documentation and agree with the findings.
[2025-06-05] MEDS: METOPROLOL SUCCINATE EXT REL 100 MG TABCR PO (21:03)
[2025-06-05] MEDS: TAMSULOSIN HCL 0.4 MG CAPSULE PO (21:05)
[2025-06-05] MEDS: MELATONIN 3 MG TABLET PO (22:16)
[2025-06-06] VITALS (21 sets, daily range): BP systolic 97–124; BP diastolic 62–66; PULSE 62–98; RESP 16–20; TEMP 35.9–36.8; O2SAT 90–97
[2025-06-06] MEDS: CALCIUM CARBONATE (TUMS) 500 MG (200 MG ELEMENTAL) 400 MG PO (00:50)
--- NOTE | 2025-06-06 03:17 | PC.NURSE ---
I agree with Veronica graduate nurse's assessment on 06/05/25
[2025-06-06 05:57] LABS: Hematocrit 42.2 % (42.0-52.0); Hemoglobin 13.9 g/dL (14.0-18.0); Immature Granulocyte Percent A 0.6 % (0-0.5); Lymphocytes Absolute Auto 1.38 K/mm3 (0.9-3.2); Mean Corpuscular HGB Conc 32.9 g/dl (32-36); Mean Corpuscular Hemoglobin 31.3 pg (26-34); Mean Corpuscular Volume 95.0 fl (80-100); Nucleated Red Blood Cells Absolute Auto 0.000 K/mm3 (0.0-0.012); Nucleated Red Blood Cells Perc 0.0 % (0.0-0.2); Platelet Count Result 164 k/mm3 (150-375); Red Blood Count 4.44 M/mm3 (4.6-6.20); White Blood Count 10.7 K/mm3 (4.5-10.0)
[2025-06-06 06:14] LABS: Alanine Aminotransferase 28 U/L (6-50); Albumin Level 3.0 g/dL (3.5-5.1); Alkaline Phosphatase 56 U/L (38-126); Anion Gap 7 mmol/L (4-12); Aspartate Amino Transferase 37 U/L (17-59); Bilirubin,Total 0.9 mg/dL (0.2-1.3); Blood Urea Nitrogen 31 mg/dL (9-20); Calcium 8.6 mg/dL (8.4-10.2); Carbon Dioxide 31 mmol/L (22-30); Chloride 94 mmol/L (98-107); Estimated CRCL calculation 38 ml/min; Estimated Glomerular Filt Rate 49; Glucose 105 mg/dL (65-110); Magnesium 1.9 mg/dL (1.6-2.3); Potassium 3.7 mmol/L (3.4-5.0); Sodium 132 mmol/L (137-145); Total Protein 6.2 g/dL (6.3-8.2)
[2025-06-06] MEDS: UMECLIDINIUM BROMIDE 62.5 MCG ELLIPTA 1 PUFF INHALATION (07:42)
[2025-06-06] MEDS: CEFEPIME 2 GM/NS 50 ML 2 GM/50 ML BAG IVPB ×2 (09:41→20:49)
[2025-06-06] MEDS: CYANOCOBALAMIN 500 MCG TABLET PO (09:42)
[2025-06-06] MEDS: DIGOXIN TAB 125 MCG TABLET PO (09:42)
[2025-06-06] MEDS: ATORVASTATIN 40 MG TABLET PO (09:42)
[2025-06-06] MEDS: ASPIRIN 81 MG ENTERIC TABLET PO (09:42)
[2025-06-06] MEDS: ACIDOPHILUS/BULGARICUS CHEWABLE TABLET 1 TABLET BY MOUTH (09:42)
[2025-06-06] MEDS: EMPAGLIFLOZIN 10 MG TABLET PO (09:42)
[2025-06-06] MEDS: APIXABAN 2.5 MG TABLET PO ×2 (09:42→20:50)
[2025-06-06] MEDS: guaiFENesin 12 HR 600 MG TABCR PO ×2 (09:42→20:50)
[2025-06-06] MEDS: AMIODARONE HCL 200 MG TABLET PO ×2 (09:43→20:50)
[2025-06-06] MEDS: FUROSEMIDE 20 MG TABLET PO (09:49)
--- NOTE | 2025-06-06 12:53 | PM.IMPN ---
Progress Note: A&P Assessment and Plan (1) Acute and chronic respiratory failure: Code(s): J96.20 - Acute and chronic respiratory failure, unspecified whether with hypoxia or hypercapnia Status: Acute Assessment and Plan: Patient with COPD with chronic resp failure on 2L at night at home. Has JOYCE but noncompliant with treatment Patient with elevated leukocytosis and CXR with small bilateral pleural effusion with adjacent compressive atelectasis. No obvious pneumonia on CTA. Procalcitonin 0.6. Zosyn added for acute bronchitis but changed to Augmentin. Mucinex added More hypoxic. Was wearing O2 all time here at 2L but now up to 4L. ABG 7.40/50/76 on 3L. CXR showing atelecatasis vs PNA KYLE and bilateral LL with bilateral pleural effusion. Abx started. Repeat CXR showing pulm vascular congestion with improved aeration. MRSA nasal swab negative. CRP 1.2. WBC 12K Continue CPT. Lasix IV x 2 doses given. Down to 2L and exam improved. Stop Lasix IV given soft BP. Wean O2 as tolerated (but continue O2 2L at night). Continue IV abx. De-escalate abx tomorrow. (2) Non-ST elevation myocardial infarction (NSTEMI): Code(s): I21.4 - Non-ST elevation (NSTEMI) myocardial infarction Status: Acute Assessment and Plan: D-dimer 0.99, proBNP >30K. EKG showed T-wave inversions concerning for ischemia in the inferior lateral leads. CTA of the chest, abdomen, and pelvis was negative for pulmonary embolism and aortic dissection. Small bilateral pleural effusions with adjacent compressive atelectasis was noted as well as gallbladder distension with mural thickening and trace surrounding inflammatory change which may be related to vascular congestion and fluid overload. Serial troponin 5.34-5.6-5.5 Echo showing EF 15-20% with findings consistent with Takotsubo CMP (Echo 05/03/25 showing EF 55-60%). Heparin drip started. Cardiology consulted and LHC attempted 06/01/25 but unsuccessful due to tortuosity of vessels. Repeat LHC 06/02 showing no significant obstructive CAD seen. Heparin gtt stopped. Continue Toprol, ASA, statin. (3) Atrial fibrillation with rapid ventricular response: Code(s): I48.91 - Unspecified atrial fibrillation Status: Acute Assessment and Plan: AFib - A few hours after presentation, he went into rapid atrial fibrillation He was rate controlled since receiving an IV diltiazem bolus. During his most recent hospitalization, there were difficulties controlling his rate and diltiazem was increased to 360 mg daily. He has been out of this medication for several days however. Additionally, he seems to be confused about whether not he is supposed to be taking apixaban and he states that he has not been taking it for unclear reasons. He was started on a heparin drip for NSTEMI as above. He remains on digoxin. Digoxin level 1.1. Amiodarone started and diltiazem stopped. Continue Eliquis (4) Heart failure with preserved ejection fraction: Code(s): I50.30 - Unspecified diastolic (congestive) heart failure Status: Acute Assessment and Plan: Acute systolic CHF As above. Echo showing EF 15-20% that is down from 55-60% last month. He did receive a dose of Lasix and remains on oral Lasix daily. Fluid status stable. Continue GDMT with Empagliflozin, Toprol XL. Consider adding spironolactone and Entresto but having elevated potassium. LifeVest offered but patient refusing. He voices understanding of the benefits of the LifeVest and the risks of refusing to use this (5) Acute kidney injury: Code(s): N17.9 - Acute kidney failure, unspecified Status: Acute Assessment and Plan: WILLIAM and CKD stage 3 Baseline creatinine 1.2 with admission creatinine 1.8. Creatinine improving overall Follow (6) Elevated liver enzymes: Code(s): R74.8 - Abnormal levels of other serum enzymes Status: Acute Assessment and Plan: Elevated liver enzymes Abd ultrasound showing cholelithiasis and prominent edematous-appearing gallbladder wall thickening but with negative sonographic Snowden's sign which is equivocal for acute cholecystitis. He does have a history of hepatitis-C No other evidence of acute cholecystitis and suspect GB edema related to heart failure. LFTs normal. Follow. Plan BPH - On Flomax Cerebral aneurysm status post coiling - Stable. Continue PT/OT DVT prophylaxis - Eliquis Code status - full Subjective Date/time seen: 06/06/25 12:53 Interval history: 79yo male with AFib, HTN, hepatitis-C, CKD stage 3, COPD with chronic respiratory failure on 2 L, prediabetes, JOYCE, BPH, and cerebral aneurysm status post coil who presented with several complaints including general malaise and weakness. Cough productive of whitish sputum. He has been off Humira for about 4 months now. He is not sure why this was stopped. No CP or SOB. Minimal TURNER when walking to the BR. He does well with a walker per staff. Voiding well with Lasix. He does not feel his bladder empty well enough Exam Narrative: AF 97.9 97/64 84 18 95% 2L Gen - NARD Chest - improved air exchange with scattered. rhonchi CV -irregularly irregular. Tele showing AFib with controlled rate and no acute dysrhythmias Abd - Soft, NT/ND, Positive BS Ext - no pedal edema Psych - Nml mood and affect Skin - Warm and dry Objective Data Vital Signs Vital Signs: Vital Signs - 24 hr 06/05/25 13:30 06/05/25 13:40 06/05/25 16:00 Temperature Pulse Rate 75 78 91 Respiratory Rate 20 20 Blood Pressure Pulse Oximetry Oxygen Delivery Oxygen Flow Rate Fraction of Inspired Oxygen 06/05/25 19:50 06/05/25 20:10 06/05/25 20:21 Temperature Pulse Rate 106 H 91 91 Respiratory Rate 18 20 Blood Pressure Pulse Oximetry Oxygen Delivery Oxygen Flow Rate Fraction of Inspired Oxygen 06/05/25 20:41 06/05/25 20:48 06/05/25 21:03 Temperature Pulse Rate 91 105 H Respiratory Rate 18 Blood Pressure Pulse Oximetry 98 90 Oxygen Delivery Nasal Cannula Nasal Cannula Oxygen Flow Rate 2 2 Fraction of Inspired Oxygen 28 06/05/25 21:05 06/05/25 22:00 06/06/25 00:00 Temperature 98.4 F Pulse Rate 105 H 111 H 98 Respiratory Rate 20 Blood Pressure 138/82 Pulse Oximetry 88 L Oxygen Delivery Oxygen Flow Rate Fraction of Inspired Oxygen 06/06/25 01:26 06/06/25 01:36 06/06/25 04:00 Temperature Pulse Rate 91 91 74 Respiratory Rate 18 18 Blood Pressure Pulse Oximetry Oxygen Delivery Oxygen Flow Rate Fraction of Inspired Oxygen 06/06/25 06:00 06/06/25 07:43 06/06/25 07:43 Temperature 97.9 F Pulse Rate 75 73 Respiratory Rate 20 18 Blood Pressure 97/64 L Pulse Oximetry 90 95 Oxygen Delivery Nasal Cannula Oxygen Flow Rate 2 Fraction of Inspired Oxygen 06/06/25 07:55 06/06/25 09:42 06/06/25 09:43 Temperature Pulse Rate 74 74 84 Respiratory Rate 18 Blood Pressure Pulse Oximetry Oxygen Delivery Oxygen Flow Rate Fraction of Inspired Oxygen Intake/Output Intake/Output: Intake & Output 06/03/25 06/04/25 06/05/25 06/06/25 23:59 23:59 23:59 23:59 Intake Total 1620 2100 1740 1110 Output Total 950 1000 1200 0 Balance 670 6316 414 1001 Meds/Results Medications: Active Medications Generic Name Dose Route Start Last Admin Trade Name Freq PRN Reason Stop Dose Admin Acetaminophen 650 mg 05/27/25 23:08 05/29/25 10:37 Acetaminophen 325 Mg Tablet PO 650 mg Q4H PRN Administration Mild Pain (1-3) or Fever Hydrocodone Bitart/Acetaminophen 1 tab 05/28/25 03:53 Hydrocodone/Acetaminophen (*Crx) 7.5-325 Mg Tablet PO Q6H PRN pain 4-10 Albuterol 2 puff 05/28/25 22:11 05/30/25 10:28 Albuterol Sulfate (*Sp) Aerosol 1 Puff INHALATION 2 puff Q6H PRN Administration shortness of breath or wheezing Albuterol/Ipratropium 3 ml 06/03/25 08:17 06/04/25 06:01 Ipratropium 0.5 Mg/Albuterol Sulfate 2.5 Mg Ampul.Neb 3 Ml INHALATION 3 ml Q6HRT PRN Administration Shortness Of Breath Amiodarone HCl 200 mg 05/28/25 21:00 06/06/25 09:43 Amiodarone Hcl 200 Mg Tablet PO 200 mg Q12HR BERNARDA Administration Apixaban 2.5 mg 06/03/25 09:00 06/06/25 09:42 Apixaban 2.5 Mg Tablet PO 2.5 mg Q12HR BERNARDA Administration Aspirin 81 mg 05/28/25 09:00 06/06/25 09:42 Aspirin 81 Mg Enteric Tablet PO 81 mg QAM BERNARDA Administration Atorvastatin Calcium 40 mg 06/03/25 09:00 06/06/25 09:42 Atorvastatin 40 Mg Tablet PO 40 mg DAILY BERNARDA Administration Calcium Carbonate 400 mg 05/28/25 03:52 06/06/25 00:50 Calcium Carbonate (Tums) 500 Mg (200 Mg Elemental) PO 400 mg Q6H PRN Administration Indigestion Cyanocobalamin 500 mcg 05/28/25 09:00 06/06/25 09:42 Cyanocobalamin 500 Mcg Tablet PO 500 mcg DAILY BERNARDA Administration Digoxin 125 mcg 05/28/25 09:00 06/06/25 09:42 Digoxin Tab 125 Mcg Tablet PO 125 mcg QAM BERNARDA Administration Empagliflozin 10 mg 05/29/25 09:00 06/06/25 09:42 Empagliflozin 10 Mg Tablet PO 10 mg DAILY BERNARDA Administration Fish Oil 1 gm 05/28/25 09:00 06/06/25 09:43 [place] 3 Polyunsat Fatty Acids 1 Gm Cap PO Not Given DAILY BERNARDA Furosemide 20 mg 05/29/25 09:00 06/06/25 09:49 Furosemide 20 Mg Tablet PO 20 mg DAILY BERNARDA Administration Guaifenesin 600 mg 05/30/25 21:00 06/06/25 09:42 Guaifenesin 12 Hr 600 Mg Tabcr PO 600 mg Q12HR BERNARDA Administration Cefepime HCl 2 gm in 50 mls @ 100 mls/hr 06/05/25 08:00 06/06/25 09:41 Maxipime 2 Gm/Ns 50 Ml IVPB 100 mls/hr Q12H BERNARDA Administration Vancomycin HCl 1,250 mg in 250 mls @ 166.667 mls/hr 06/06/25 23:00 Vancomycin 1,250 Mg/Ns 250 Ml IVPB Q24H BERNARDA Lactobacillus Acidophilus 1 tablet 05/28/25 09:00 06/06/25 09:42 Acidophilus/Bulgaricus Chewable Tablet BY MOUTH 1 tablet DAILY BERNARDA Administration Levalbuterol HCl 1.25 mg 06/04/25 20:00 06/06/25 07:42 Levalbuterol Neb 1.25 Mg/3 Ml INHALATION 1.25 mg Q6HRT BERNARDA Administration Melatonin 3 mg 05/29/25 22:03 06/05/25 22:16 Melatonin 3 Mg Tablet PO 3 mg HS PRN Administration Insomnia Metoprolol Succinate 100 mg 05/28/25 21:00 06/05/25 21:03 Metoprolol Succinate Ext Rel 100 Mg Tabcr PO 100 mg QHS BERNARDA Administration Miscellaneous Information 1 each 06/06/25 00:01 Please Renew [place]. Per [employer] Procedure, It Will Discontinue If Not Renewed XX 07/06/25 00:00 [facility]ARIFY [facility] Multivitamins Therapeutic 1 tablet 05/28/25 09:00 06/06/25 09:43 Multivitamins Therapeutic Tab (*Bkc) PO Not Given DAILY [facility] Ondansetron HCl 4 mg 05/27/25 23:08 Ondansetron Inj 4 Mg/2 Ml Vial IV PUSH Q4H PRN Nausea Tamsulosin HCl 0.4 mg 05/28/25 21:00 06/05/25 21:05 Tamsulosin Hcl 0.4 Mg Capsule PO 0.4 mg QHS BERNARDA Administration Umeclidinium [place] 1 puff 05/28/25 08:00 06/06/25 07:42 Umeclidinium [place] 62.5 Mcg Ellipta INHALATION 1 puff DAILYRT BERNARDA Administration Radiology Results: ITS Impressions Chest/Abdomen/Pelvis CTA 05/27/25 22:44 IMPRESSION: No pulmonary embolus. No aortic dissection. Small bilateral pleural effusions with adjacent compressive atelectasis. Gallbladder distention with mural thickening and trace surrounding inflammatory change, which may be related to vascular congestion and fluid overload rather than inflammatory gallbladder disease, for which clinical (and serologic) correlation is needed. Internal Auditory Canal CT 05/28/25 08:21 IMPRESSION: No definite abnormality seen in both temporal bones. Renal Ultrasound 05/28/25 21:32 IMPRESSION: No hydronephrosis or renal calculi. No findings to suggest medical renal disease. Simple cyst within the interpolar region of the right kidney, for which no further follow-up is needed. Abdomen Ultrasound 05/29/25 12:51 IMPRESSION: 1. Cholelithiasis and prominent edematous-appearing gallbladder wall thickening but with negative sonographic Snowden's sign which is equivocal for acute cholecystitis. No significant surrounding infiltration and was evident on the prior CT and the gallbladder wall thickening could potentially also be secondary to heart failure, liver disease, renal failure or other generalized edema forming states. Could consider HIDA scan for further evaluation as clinically indicated. Chest X-Ray 06/06/25 08:00 IMPRESSION: Moderate right and small left-sided pleural effusion. Findings suggesting multifocal infiltrates. Labs Labs: Laboratory Results - last 24 hr 06/06/25 05:31 WBC 10.7 H RBC 4.44 L Hgb 13.9 L Hct 42.2 MCV 95.0 MCH 31.3 MCHC 32.9 RDW 16.1 H Plt Count 164 MPV 11.6 H Immature Gran % (Auto) 0.6 H Neut % (Auto) 71.9 Lymph % (Auto) 12.9 L Perkins % (Auto) 9.5 H Eos % (Auto) 4.7 H Baso % (Auto) 0.4 Lymph # (Auto) 1.38 Perkins # (Auto) 1.0 H Eos # (Auto) 0.5 H Baso # (Auto) 0.0 Abs Immat Gran (auto) 0.06 H Absolute Neuts (auto) 7.7 H Absolute Nucleated RBC 0.000 Nucleated RBC % 0.0 Sodium 132 L Potassium 3.7 Chloride 94 L Carbon Dioxide 31 H Anion Gap 7 BUN 31 H Creatinine 1.41 H Estim Creat Clear Calc 38 Estimated GFR 49 L Glucose 105 Calcium 8.6 Magnesium 1.9 Total Bilirubin 0.9 AST 37 ALT 28 Alkaline Phosphatase 56 Total Protein 6.2 L Albumin 3.0 L
--- NOTE | 2025-06-06 19:00 | PC.NURSE ---
On 06/06/25, the COSTUME SPECIALIST, Anni Ac, provided care and completed [employer] documentation on this patient. I have reviewed the COSTUME SPECIALIST's documentation and agree with the findings.
[2025-06-06] MEDS: METOPROLOL SUCCINATE EXT REL 100 MG TABCR PO (20:50)
[2025-06-06] MEDS: TAMSULOSIN HCL 0.4 MG CAPSULE PO (20:50)
[2025-06-07] VITALS (18 sets, daily range): BP systolic 120–142; BP diastolic 72–93; PULSE 49–121; RESP 16–20; TEMP 35.6–36.7; O2SAT 95–97
[2025-06-07 06:24] LABS: Anion Gap 6 mmol/L (4-12); Blood Urea Nitrogen 31 mg/dL (9-20); Calcium 8.7 mg/dL (8.4-10.2); Carbon Dioxide 33 mmol/L (22-30); Chloride 95 mmol/L (98-107); Estimated CRCL calculation 39 ml/min; Estimated Glomerular Filt Rate 52; Glucose 92 mg/dL (65-110); Potassium 3.6 mmol/L (3.4-5.0); Sodium 134 mmol/L (137-145)
[2025-06-07] MEDS: UMECLIDINIUM BROMIDE 62.5 MCG ELLIPTA 1 PUFF INHALATION (09:14)
--- NOTE | 2025-06-07 09:32 | PCPTNOTE ---
Patient refused PT at this time. Patient states he does not feel good due to lack of sleep and being constipated. Educated patient on the importance of participating in therapy to improve. Patient voices understanding but continued to refuse.
[2025-06-07] MEDS: ATORVASTATIN 40 MG TABLET PO (10:33)
[2025-06-07] MEDS: DIGOXIN TAB 125 MCG TABLET PO (10:33)
[2025-06-07] MEDS: ASPIRIN 81 MG ENTERIC TABLET PO (10:33)
[2025-06-07] MEDS: ACIDOPHILUS/BULGARICUS CHEWABLE TABLET 1 TABLET BY MOUTH (10:33)
[2025-06-07] MEDS: CYANOCOBALAMIN 500 MCG TABLET PO (10:33)
[2025-06-07] MEDS: FUROSEMIDE 20 MG TABLET PO (10:33)
[2025-06-07] MEDS: APIXABAN 2.5 MG TABLET PO ×2 (10:34→20:34)
[2025-06-07] MEDS: AMIODARONE HCL 200 MG TABLET PO ×2 (10:34→20:25)
[2025-06-07] MEDS: EMPAGLIFLOZIN 10 MG TABLET PO (10:34)
[2025-06-07] MEDS: MULTIVITAMINS THERAPEUTIC TAB (*BKC) 1 TABLET PO (10:34)
[2025-06-07] MEDS: guaiFENesin 12 HR 600 MG TABCR PO ×2 (10:34→20:25)
[2025-06-07] MEDS: CEFEPIME 2 GM/NS 50 ML 2 GM/50 ML BAG IVPB (10:35)
--- NOTE | 2025-06-07 17:03 | P.PNIM_ITS ---
Progress Note: A&P Assessment and Plan (1) Acute and chronic respiratory failure: Code(s): J96.20 - Acute and chronic respiratory failure, unspecified whether with hypoxia or hypercapnia Status: Acute Assessment and Plan: Patient with COPD with chronic resp failure on 2L at night at home. Has JOYCE but noncompliant with treatment Patient with elevated leukocytosis and CXR with small bilateral pleural effusion with adjacent compressive atelectasis. No obvious pneumonia on CTA. Procalcitonin 0.6. Zosyn added for acute bronchitis but changed to Augmentin. Mucinex added More hypoxic. Was wearing O2 all time here at 2L but then up to 4L. ABG 7.40/50/76 on 3L. CXR showing atelecatasis vs PNA KYLE and bilateral LL with bilateral pleural effusion. Abx started. Repeat CXR showing pulm vascular congestion with improved aeration. MRSA nasal swab negative. CRP 1.2. WBC 12K Continue CPT. Lasix IV x 2 doses given. Down to 2L and exam improved. Lasix IV stopped due to soft BP. Wean O2 as tolerated (but continue O2 2L at night). De-escalate abx. Home O2 evaluation. Lasix IV once. Plan home tomorrow. (2) Non-ST elevation myocardial infarction (NSTEMI): Code(s): I21.4 - Non-ST elevation (NSTEMI) myocardial infarction Status: Acute Assessment and Plan: D-dimer 0.99, proBNP >30K. EKG showed T-wave inversions concerning for ischemia in the inferior lateral leads. CTA of the chest, abdomen, and pelvis was negative for pulmonary embolism and ao rtic dissection. Small bilateral pleural effusions with adjacent compressive atelectasis was noted as well as gallbladder distension with mural thickening and trace surrounding inflammatory change which may be related to vascular congestion and fluid overload. Serial troponin 5.34-5.6-5.5 Echo showing EF 15-20% with findings consistent with Takotsubo CMP (Echo 05/03/25 showing EF 55-60%). Heparin drip started. Cardiology consulted and [facility] attempted 06/01/25 but unsuccessful due to tortuosity of vessels. Repeat C 06/02 showing no significant obstructive CAD seen. Heparin gtt stopped. Continue Toprol, ASA, statin. Cardiology following (3) Atrial fibrillation with rapid ventricular response: Code(s): I48.91 - Unspecified atrial fibrillation Status: Acute Assessment and Plan: AFib - A few hours after presentation, he went into rapid atrial fibrillation He was rate controlled since receiving an IV diltiazem bolus. During his most recent hospitalization, there were difficulties controlling his rate and diltiazem was increased to 360 mg daily. He has been out of this medication for several days however. Additionally, he seems to be confused about whether not he is supposed to be taking apixaban and he states that he has not been taking it for unclear reasons. He was started on a heparin drip for NSTEMI as above. He remains on digoxin. Digoxin level 1.1. Amiodarone started and diltiazem stopped. Continue Eliquis and Amio (4) Heart failure with preserved ejection fraction: Code(s): I50.30 - Unspecified diastolic (congestive) heart failure Status: Acute Assessment and Plan: Acute systolic CHF As above. Echo showing EF 15-20% that is down from 55-60% last month. He did receive a dose of Lasix and remains on oral Lasix daily. Fluid status stable. Continue GDMT with Empagliflozin, Toprol XL. Consider adding spironolactone and Entresto but having elevated potassium. LifeVest offered and patient now has accepted (5) Acute kidney injury: Code(s): N17.9 - Acute kidney failure, unspecified Status: Acute Assessment and Plan: WILLIAM and CKD stage 3 Baseline creatinine 1.2 with admission creatinine 1.8. Creatinine improving overall Follow (6) Elevated liver enzymes: Code(s): R74.8 - Abnormal levels of other serum enzymes Status: Acute Assessment and Plan: Elevated liver enzymes Abd ultrasound showing cholelithiasis and prominent edematous-appearing gallbl adder wall thickening but with negative sonographic Snowden's sign which is equivocal for acute cholecystitis. He does have a history of hepatitis-C No other evidence of acute cholecystitis and suspect GB edema related to heart failure. LFTs normal. Follow. Plan BPH - On Flomax Cerebral aneurysm status post coiling - Stable. Continue PT/OT DVT prophylaxis - Elieleazar Code status - full Subjective Date/time seen: 06/07/25 17:03 Interval history: 79yo male with AFib, HTN, hepatitis-C, CKD stage 3, COPD with chronic respiratory failure on 2 L, prediabetes, JOYCE, BPH, and cerebral aneurysm status post coil who presented with several complaints including general malaise and weakness. Constipated earlier but now resolved. No CP or SOB. He has decided to wear the LifeVest now. Cough productive of whitish sputum. Exam Narrative: AF 98.0 120/93 98 16 95% 2L Gen - NARD Chest - inspiratory crackles left mid and lower lung field CV -irregularly irregular. Tele showing AFib with controlled rate and PVCs Abd - Soft, NT/ND, Positive BS Ext - trace pedal edema Psych - Nml mood and affect Skin - Warm and dry Objective Data Vital Signs Vital Signs: Vital Signs - 24 hr 06/06/25 20:00 06/06/25 20:36 06/06/25 20:48 Temperature Pulse Rate 87 94 89 Respiratory Rate 18 18 Blood Pressure Pulse Oximetry Oxygen Delivery Oxygen Flow Rate 06/06/25 20:50 06/06/25 20:50 06/06/25 20:50 Temperature Pulse Rate 85 85 85 Respiratory Rate 18 Blood Pressure Pulse Oximetry 95 Oxygen Delivery Nasal Cannula Oxygen Flow Rate 2 06/06/25 21:28 06/07/25 00:00 06/07/25 04:00 Temperature 96.7 F L Pulse Rate 66 76 97 Respiratory Rate 16 Blood Pressure 121/66 Pulse Oximetry 97 Oxygen Delivery Oxygen Flow Rate 06/07/25 06:00 06/07/25 08:00 06/07/25 08:13 Temperature 96.1 F L Pulse Rate 83 84 90 Respiratory Rate 16 18 Blood Pressure 134/72 Pulse Oximetry 97 Oxygen Delivery Oxygen Flow Rate 06/07/25 08:18 06/07/25 12:00 06/07/25 14:36 Temperature 98.0 F Pulse Rate 88 112 H 49 L Respiratory Rate 18 16 Blood Pressure 120/93 H Pulse Oximetry 95 Oxygen Delivery Oxygen Flow Rate 06/07/25 14:48 06/07/25 15:00 06/07/25 15:07 Temperature Pulse Rate 92 98 Respiratory Rate 16 16 Blood Pressure Pulse Oximetry 95 Oxygen Delivery Nasal Cannula Oxygen Flow Rate 2 Intake/Output Intake/Output: Intake & Output 06/04/25 06/05/25 06/06/25 06/07/25 23:59 23:59 23:59 23:59 Intake Total 2100 1740 2550 830 Output Total 1000 1200 0 Balance 1734 409 4112 830 Meds/Results Medications: Active Medications Generic Name Dose Route Start Last Admin Trade Name Freq PRN Reason Stop Dose Admin Acetaminophen 650 mg 05/27/25 23:08 05/29/25 10:37 Acetaminophen 325 Mg Tablet PO 650 mg Q4H PRN Administration Mild Pain (1-3) or Fever Albuterol 2 puff 05/28/25 22:11 05/30/25 10:28 Albuterol Sulfate (*Sp) Aerosol 1 Puff INHALATION 2 puff Q6H PRN Administration shortness of breath or wheezing Albuterol/Ipratropium 3 ml 06/03/25 08:17 06/04/25 06:01 Ipratropium 0.5 Mg/Albuterol Sulfate 2.5 Mg Ampul.Neb 3 Ml INHALATION 3 ml Q6HRT PRN Administration Shortness Of Breath Amiodarone HCl 200 mg 05/28/25 21:00 06/07/25 10:34 Amiodarone Hcl 200 Mg Tablet PO 200 mg Q12HR BERNARDA Administration Apixaban 2.5 mg 06/03/25 09:00 06/07/25 10:34 Apixaban 2.5 Mg Tablet PO 2.5 mg Q12HR BERNARDA Administration Aspirin 81 mg 05/28/25 09:00 06/07/25 10:33 Aspirin 81 Mg Enteric Tablet PO 81 mg QAM BERNARDA Administration Atorvastatin Calcium 40 mg 06/03/25 09:00 06/07/25 10:33 Atorvastatin 40 Mg Tablet PO 40 mg DAILY BERNARDA Administration Calcium Carbonate 400 mg 05/28/25 03:52 06/06/25 00:50 Calcium Carbonate (Tums) 500 Mg (200 Mg Elemental) PO 400 mg Q6H PRN Administration Indigestion Cyanocobalamin 500 mcg 05/28/25 09:00 06/07/25 10:33 Cyanocobalamin 500 Mcg Tablet PO 500 mcg DAILY BERNARDA Administration Digoxin 125 mcg 05/28/25 09:00 06/07/25 10:33 Digoxin Tab 125 Mcg Tablet PO 125 mcg QAM BERNARDA Administration Doxycycline Hyclate 100 mg 06/07/25 16:30 Doxycycline Hyclate 100 Mg Tablet PO 06/11/25 21:01 Q12HR BERNARDA Empagliflozin 10 mg 05/29/25 09:00 06/07/25 10:34 Empagliflozin 10 Mg Tablet PO 10 mg DAILY BERNARDA Administration Fish Oil 1 gm 05/28/25 09:00 06/07/25 10:35 Beulah 3 Polyunsat Fatty Acids 1 Gm Cap PO Not Given DAILY BERNARDA Furosemide 20 mg 05/29/25 09:00 06/07/25 10:33 Furosemide 20 Mg Tablet PO 20 mg DAILY BERNARDA Administration Guaifenesin 600 mg 05/30/25 21:00 06/07/25 10:34 Guaifenesin 12 Hr 600 Mg Tabcr PO 600 mg Q12HR BERNARDA Administration Lactobacillus Acidophilus 1 tablet 05/28/25 09:00 06/07/25 10:33 Acidophilus/Bulgaricus Chewable Tablet BY MOUTH 1 tablet DAILY BERNARDA Administration Levalbuterol HCl 1.25 mg 06/04/25 20:00 06/07/25 15:00 Levalbuterol Neb 1.25 Mg/3 Ml INHALATION 1.25 mg Q6HRT BERNARDA Administration Levofloxacin 750 mg 06/07/25 21:00 Levofloxacin 750 Mg Tablet PO 06/11/25 21:01 Q48H BERNARDA Melatonin 3 mg 05/29/25 22:03 06/05/25 22:16 Melatonin 3 Mg Tablet PO 3 mg HS PRN Administration Insomnia Metoprolol Succinate 100 mg 05/28/25 21:00 06/06/25 20:50 Metoprolol Succinate Ext Rel 100 Mg Tabcr PO 100 mg QHS BERNARDA Administration Miscellaneous Information 1 each 06/06/25 00:01 Please Renew [place]. Per [employer] Procedure, It Will Discontinue If Not Renewed XX 07/06/25 00:00 [facility] Multivitamins Therapeutic 1 tablet 05/28/25 09:00 06/07/25 10:34 Multivitamins Therapeutic Tab (*Bkc) PO 1 tablet DAILY BERNARDA Administration Ondansetron HCl 4 mg 05/27/25 23:08 Ondansetron Inj 4 Mg/2 Ml Vial IV PUSH Q4H PRN Nausea Tamsulosin HCl 0.4 mg 05/28/25 21:00 06/06/25 20:50 Tamsulosin Hcl 0.4 Mg Capsule PO 0.4 mg QHS BERNARDA Administration Umeclidinium Val[place] 1 puff 05/28/25 08:00 06/07/25 09:14 Umeclidinium Val[place] 62.5 Mcg Ellipta INHALATION 1 puff DAILYRT BERNARDA Administration Radiology Results: ITS Impressions Chest/Abdomen/Pelvis CTA 05/27/25 22:44 IMPRESSION: No pulmonary embolus. No aortic dissection. Small bilateral pleural effusions with adjacent compressive atelectasis. Gallbladder distention with mural thickening and trace surrounding inflammatory change, which may be related to vascular congestion and fluid overload rather than inflammatory gallbladder disease, for which clinical (and serologic) correlation is needed. Internal Auditory Canal CT 05/28/25 08:21 IMPRESSION: No definite abnormality seen in both temporal bones. Renal Ultrasound 05/28/25 21:32 IMPRESSION: No hydronephrosis or renal calculi. No findings to suggest medical renal disease. Simple cyst within the interpolar region of the right kidney, for which no further follow-up is needed. Abdomen Ultrasound 05/29/25 12:51 IMPRESSION: 1. Cholelithiasis and prominent edematous-appearing gallbladder wall thickening but with negative sonographic Snowden's sign which is equivocal for acute cholecystitis. No significant surrounding infiltration and was evident on the prior CT and the gallbladder wall thickening could potentially also be secondary to heart failure, liver disease, renal failure or other generalized edema forming states. Could consider HIDA scan for further evaluation as clinically indicated. Chest X-Ray 06/06/25 08:00 IMPRESSION: Moderate right and small left-sided pleural effusion. Findings suggesting multifocal infiltrates. Labs Labs: Laboratory Results - last 24 hr 06/07/25 05:33 Sodium 134 L Potassium 3.6 Chloride 95 L Carbon Dioxide 33 H Anion Gap 6 BUN 31 H Creatinine 1.34 H Estim Creat Clear Calc 39 Estimated GFR 52 L Glucose 92 Calcium 8.7
[2025-06-07] MEDS: FUROSEMIDE INJ 40 MG/4 ML VIAL IV PUSH (19:18)
[2025-06-07] MEDS: DOXYCYCLINE HYCLATE 100 MG TABLET PO (19:18)
[2025-06-07] MEDS: TAMSULOSIN HCL 0.4 MG CAPSULE PO (20:26)
[2025-06-07] MEDS: METOPROLOL SUCCINATE EXT REL 100 MG TABCR PO (20:30)
[2025-06-07] MEDS: MELATONIN 3 MG TABLET PO (20:34)
[2025-06-08] VITALS (11 sets, daily range): BP systolic 111; BP diastolic 75; PULSE 71–96; RESP 16–20; TEMP 36.7; O2SAT 92–94
[2025-06-08] MEDS: DOXYCYCLINE HYCLATE 100 MG TABLET PO ×2 (00:58→10:41)
[2025-06-08] MEDS: UMECLIDINIUM BROMIDE 62.5 MCG ELLIPTA 1 PUFF INHALATION (09:29)
--- NOTE | 2025-06-08 10:09 | HOMEO2EVAL ---
Evaluation was performed at [facility] Home Oxygen Evaluation RC: Home Oxygen (O2) Evaluation Start: 06/07/25 17:03 Freq: ONCE Status: Active Protocol: RPE Activity Type Activity Date Activity User E-sign Co-sign Detail Recorded Client Recorded Date Recorded By Document 06/08/25 09:45 [email or web address] [email or web address] 06/08/25 10:09 EMILY Document 06/08/25 09:50 [email or web address] [email or web address] 06/08/25 10:09 EMILY Document 06/08/25 10:00 [email or web address] [email or web address] 06/08/25 10:09 EMILY 06/08/25 06/08/25 06/08/25 09:45 09:50 10:00 Home O2 Evaluation [Oxygen] -Test Phase Resting Exercise Resting -Oxygen Delivery Room Air Room Air Room Air [Pulse Oximetry] -Pulse Oximetry (90-100 %) 94 92 93 [Pulse Rate] -Pulse Rate (60-100 beats/min) 83 96 90 [Comments] -Home Oxygen Evaluation Comments No home O2 needed with rest or activity [Charges] -Evaluation Charges O2 Evaluation by Pulmonary
--- NOTE | 2025-06-08 10:10 | PCRCNOTE ---
Home O2 eval done, no addtl home O2 needed. No O2 needed at rest or with activity, only nocturnal O2 at 2 liters, this is his O2 needs prior to admission.
[2025-06-08] MEDS: DIGOXIN TAB 125 MCG TABLET PO (10:39)
[2025-06-08] MEDS: ACIDOPHILUS/BULGARICUS CHEWABLE TABLET 1 TABLET BY MOUTH (10:40)
[2025-06-08] MEDS: FUROSEMIDE 20 MG TABLET PO (10:40)
[2025-06-08] MEDS: CYANOCOBALAMIN 500 MCG TABLET PO (10:40)
[2025-06-08] MEDS: guaiFENesin 12 HR 600 MG TABCR PO (10:40)
[2025-06-08] MEDS: EMPAGLIFLOZIN 10 MG TABLET PO (10:40)
[2025-06-08] MEDS: OMEGA 3 POLYUNSAT FATTY ACIDS 1 GM CAP PO (10:40)
[2025-06-08] MEDS: MULTIVITAMINS THERAPEUTIC TAB (*BKC) 1 TABLET PO (10:40)
[2025-06-08] MEDS: APIXABAN 2.5 MG TABLET PO (10:41)
[2025-06-08] MEDS: ATORVASTATIN 40 MG TABLET PO (10:41)
[2025-06-08] MEDS: AMIODARONE HCL 200 MG TABLET PO (10:41)
[2025-06-08] MEDS: ASPIRIN 81 MG ENTERIC TABLET PO (10:41)
--- NOTE | 2025-06-08 11:09 | PM.DS ---
DS: Admitting Diagnosis Discharge Date 06/08/25 Admitting Diagnosis General malaise and weakness DS: Discharge Diagnosis Discharge Diagnosis (1) Acute and chronic respiratory failure: Code(s): J96.20 - Acute and chronic respiratory failure, unspecified whether with hypoxia or hypercapnia Status: Acute (2) Non-ST elevation myocardial infarction (NSTEMI): Code(s): I21.4 - Non-ST elevation (NSTEMI) myocardial infarction Status: Acute (3) CHF (congestive heart failure): Code(s): I50.9 - Heart failure, unspecified Status: Acute (4) Atrial fibrillation with rapid ventricular response: Code(s): I48.91 - Unspecified atrial fibrillation Status: Acute (5) Acute kidney injury: Code(s): N17.9 - Acute kidney failure, unspecified Status: Acute (6) Elevated liver enzymes: Code(s): R74.8 - Abnormal levels of other serum enzymes Status: Acute (7) Pneumonia: Code(s): J18.9 - Pneumonia, unspecified organism Status: Acute DS: Summary Hospital Course Reason for hospitalization: 79yo male with AFib, HTN, hepatitis-C, CKD stage 3, COPD with chronic respiratory failure on 2 L, prediabetes, JOYCE, BPH, and cerebral aneurysm status post coil who presented with several complaints including general malaise and weakness. Please see H&P for details. Hospital Course: The following issues were addressed: (1) Acute and chronic respiratory failure: Patient with COPD with chronic resp failure on 2L at night at home. Has JOYCE but noncompliant with treatment. Patient with elevated leukocytosis and CXR with small bilateral pleural effusion with adjacent compressive atelectasis. No obvious pneumonia on CTA. Procalcitonin 0.6. Zosyn added for acute bronchitis but changed to Augmentin. Mucinex added. He became more hypoxic up to 4L. ABG 7.40/50/76 on 3L. CXR showing atelecatasis vs PNA KYLE and bilateral LL with bilateral pleural effusion. Abx started. Lasix IV started. Repeat CXR showing pulm vascular congestion with improved aeration. MRSA nasal swab negative. CRP 1.2. WBC 12K. CPT started. WBC trended down. He had clinical appointment. He was weaned to room air. Home O2 evaluation showing he does not need O2 while awake. Continue home O2 2L when sleeping. (2) Non-ST elevation myocardial infarction (NSTEMI): D-dimer 0.99, proBNP >30K. EKG showed T-wave inversions concerning for ischemia in the inferior lateral leads. CTA of the chest, abdomen, and pelvis was negative for pulmonary embolism and aortic dissection. Small bilateral pleural effusions with adjacent compressive atelectasis was noted. Serial troponin up to 5.6. Echo showing EF 15-20% with findings consistent with Takotsubo CMP (Echo 05/03/25 showing EF 55-60%). Heparin drip started. Cardiology consulted and [facility] attempted 06/01/25 but unsuccessful due to tortuosity of vessels. Repeat C 06/02 showing no significant obstructive CAD seen. Heparin gtt stopped. Continue Toprol, ASA, statin. Cardiology followed along and appreciate their input. (3) Atrial fibrillation with rapid ventricular response: A few hours after presentation, patient went into rapid atrial fibrillation. He was rate controlled since receiving an IV diltiazem bolus. During his most recent hospitalization, there were difficulties controlling his rate and diltiazem was increased to 360 mg daily. He has been out of this medication for several days however. Additionally, he seems to be confused about whether not he is supposed to be taking apixaban and he states that he has not been taking it for unclear reasons. He was started on a heparin drip for NSTEMI as above. He remained on digoxin. Digoxin level 1.1. Amiodarone started and diltiazem stopped. We continued Eliquis. Rate controlled. (4) Heart failure with preserved ejection fraction: Patient with acute systolic CHF. Echo showing EF 15-20% that is down from 55-60% last month. He did receive a dose of Lasix and remains on oral Lasix daily. He did receive doses of IV Lasix when his oxygen requirement increased. Started on GDMT with Empagliflozin, Toprol XL. Consider adding spironolactone and Entresto but he was having elevated potassium. LifeVest offered and patient now has accepted so this was arranged. (5) PNA vs Bronchitis As above. (6) Acute kidney injury: WILLIAM and CKD stage 3 Baseline creatinine 1.2 with admission creatinine 1.8. Creatinine improving overall (7) Elevated liver enzymes: Elevated liver enzymes noted. CT Abd showing GB distension with mural thickening and trace surrounding inflammatory change which may be related to vascular congestion and fluid overload. Abd ultrasound showing cholelithiasis and prominent edematous-appearing gallbladder wall thickening but with negative sonographic Snowden's sign which is equivocal for acute cholecystitis. He does have a history of hepatitis-C. No other evidence of acute cholecystitis and suspect GB edema related to heart failure. LFTs normalized. He has been up walking in the room. He feels much better. He overall did well and was able to be discharged home on 06/08/25. Status at Discharge Cognitive/behavioral status at discharge: stable Time Spent with Patient Time attestation: Total time spent providing and/or coordinating discharge services: 35 minutes Time spent: Greater than 30 minutes Exam Narrative: AF 98.0 111/75 88 20 93% RA Gen - NARD Chest - scattered rhonchi CV -irregularly irregular. Tele showing AFib with controlled rate and PVCs Abd - Soft, NT/ND, Positive BS Ext - scant pedal edema Psych - Nml mood and affect Skin - Warm and dry DS: Data Data Completed and Pending Labs on day of discharge: Preliminary micro results at discharge 06/04/25 22:15 Sputum Culture - Preliminary Sputum Yeast isolated 06/05/25 08:06 Blood Culture - Preliminary Blood 06/05/25 07:52 Blood Culture - Preliminary Blood Discharge Plan Discharge Attending physician on discharge: Andres Mccallum Consulting providers: Ezequiel Hutchinson; Carola Raphael Discharging Clinician: Andres Mccallum Anticipated Discharge Date/Time: 06/08/25 11:27 Patient Disposition: Home with Home Health Service Activity: as tolerated Diet: heart healthy Discharge Instructions: Per Care Coordination, patient to discharge with [facility] ([phone]) for PT/ OT and nursing home services. Agency will call to arrange initial visit with start of care week of 06/06/25. Continue to use the LifeVest as instructed. Wear at all times. Okay to remove for hygiene. You do not need oxygen while awake but continue oxygen at 2Liters/min when sleeping Please complete your antibiotic course even if you are starting to feel well. -- There are 2 antibiotics for you to take: 1. Doxycycline 1oomg every 12 hours with first dose the evening on June 07 2. Amoxicillin/Clavulanate 1 tablet every 12 hours with first dose the evening of June 09 Both antibiotics end with the evening dose of June 11. Take precautions to avoid falls. Rise slowly from a lying or sitting position. Pause before standing or walking. Check daily morning weights after voiding. Call your doctor if you gain more than 3 lb in 2 days or 5 lb in 1 week. Contact your doctor or call 911 and come to the Emergency Room if you have shortness of breath, lightheadedness with standing or other worrisome symptoms. Avoid NSAIDs (ibuprofen, naproxen, Aleve). Tylenol is safe to take. Follow-up with your primary care provider in 1-2 weeks. Please call for appointment. Follow-up with cardiology in 1-2 weeks. Please call for appointment Thank you for using [facility] for your health care needs. Patient Instructions: Antibiotic Form, Apixaban (By mouth), Heart Failure (DC), A-fib (Atrial Fibrillation) (GEN), Hypercoagulation (GEN), Blood Thinners (GEN) Patient Language: Tunisian Stand Alone Forms: General Discharge Information Follow-up/Referrals: Ezequiel Hutchinson DO [Physician] - Call for Appointment Ulisses Downing MD [Primary Care Provider] - Call for Appointment Discharge Medications: New amiodarone [Pacerone] 200 mg Tablet 200 mg PO Q12HR Qty: 60 1RF amoxicillin-pot clavulanate 875-125 mg tablet 1 tablet PO Q12H Qty: 5 0RF Rx Instructions: Start the evening of June 09 Jardiance 10 mg Tablet 10 mg PO DAILY Qty: 30 1RF furosemide 20 mg Tablet 20 mg PO DAILY Qty: 30 1RF atorvastatin 40 mg Tablet 40 mg PO DAILY Qty: 30 0RF doxycycline hyclate 100 mg Tablet 100 mg PO Q12HR Qty: 7 0RF Continued multivitamin Tablet 1 tablet PO DAILY Probiotic Digestive Health 30 billion cell capsule 1 cap PO DAILY cyanocobalamin (vitamin B-12) [B-12 DOTS] 500 mcg tablet 500 mcg PO DAILY omega 9-gbf-vfy-fish oil [Fish Oil] 1,200 (144-216) mg capsule 1 cap PO DAILY aspirin 81 mg capsule 81 mg PO DAILY digoxin 125 mcg (0.125 mg) Tablet 125 mcg PO QAM Qty: 30 0RF calcium carbonate 500 mg calcium (1,250 mg) Tablet,Chewable 400 mg PO Q6H PRN (Reason: Indigestion) Qty: 30 0RF metoprolol succinate [Toprol XL] 100 mg Tablet Extended Release 24 Hr 100 mg PO QHS Qty: 30 0RF Incruse Ellipta 62.5 mcg/actuation Blister With Device 62.5 mcg inhalation DAILYRT Qty: 30 0RF albuterol sulfate 90 mcg/actuation HFA aerosol inhaler 2 puff INHALATION Q6H PRN (Reason: shortness of breath or wheezing) hydrocodone-acetaminophen 7.5-325 mg tablet 1 tablet PO Q6H PRN (Reason: pain) Qty: 110 0RF tamsulosin 0.4 mg capsule 0.4 mg PO QHS Qty: 30 0RF Changed Eliquis 2.5 mg tablet 2.5 mg PO Q12H Qty: 60 5RF Dose Instruction: TAKE 1 TABLET BY MOUTH TWICE DAILY Rx Instructions: TAKE 1 TABLET BY MOUTH every 12 hours Held Humira 40 mg/0.8 mL syringe kit See Rx Instructions SUB-Q .COMPLEX Hold Instructions: HOLD - resume when okay with your provider Rx Instructions: inject one - 40 mg/0.8 mL syringe every 2 weeks subcut Discontinued diltiazem HCl 180 mg Capsule,Ext.Rel 24h Degradable 360 mg BYMOUTH DAILY Qty: 30 0RF Patient Comments: ran out and no refill Date of admission: 05/28/25 08:48 Primary Care Provider: Ulisses Downing Admitting Provider: Krystal Kaur Attending physician on admission: Krystal Kaur Condition: Stable Hospitalist MIPS Heart Failure (Exclusion) Patient has history of Heart Transplant or Left Ventricular Assistive Device?: No IF YES, STOP HERE Heart Failure (Qualifier) Patient has current or prior documentation of LVEF less than or equal to 40%, or mod/servere depressed LVSF?: Yes IF NO, STOP HERE If Yes, Heart Failure (Qualifier) Patient was prescribed or already taking an Angiotensin-Converting Enzyme (INA) Inhibitor, or Antiotensin Receptor Jenny (ARB): No Patient was prescribed or already taking bisoprolol, carvedilol, or sustained release metoprolol succinate: Yes If Medications not prescribed/taking Reason patient not prescribed/taking INA or ARB: Medical reasons: allergy, intolerance, contraindication or other
--- NOTE | 2025-06-08 13:18 | WPDCDIQUERY2 ---
CDI Query Clarification Request Please review the clinical information below and clarify the respiratory diagnosis the patient is being treated for: Hypoxia or hypoxemia without respiratory failure Respiratory distress without respiratory failure Acute respiratory failure with hypoxia Acute respiratory failure with hypercapnia Acute respiratory failure with hypoxia and hypercapnia Acute on chronic respiratory failure with hypoxia Acute on chronic respiratory failure with hypercapnia Acute on chronic respiratory failure with hypoxia and hypercapnia Acute respiratory distress syndrome (ARDS) Chronic respiratory failure with hypoxia Chronic respiratory failure with hypercapnia Chronic respiratory failure with hypoxia and hypercapnia Other explanation clinical findings, please specify Unable to determine The medical chart reflects the following: (1) Acute and chronic respiratory failure: Patient with COPD with chronic resp failure on 2L at night at home. Has JOYCE but noncompliant with treatment. Patient with elevated leukocytosis and CXR with small bilateral pleural effusion with adjacent compressive atelectasis. No obvious pneumonia on CTA. Procalcitonin 0.6. Zosyn added for acute bronchitis but changed to Augmentin. Mucinex added. He became more hypoxic up to 4L. ABG 7.40/50/76 on 3L. CXR showing atelecatasis vs PNA KYLE and bilateral LL with bilateral pleural effusion. Abx started. Lasix IV started. Repeat CXR showing pulm vascular congestion with improved aeration. MRSA nasal swab negative. CRP 1.2. WBC 12K. CPT started. WBC trended down. He had clinical appointment. He was weaned to room air. Home O2 evaluation showing he does not need O2 while awake. Continue home O2 2L when sleeping. required an increase in o2 demand.
== END 2025-06-08 13:25 | disposition home health service (06) | DRG 280 ==
LOC: ANHED 23:07 → ANHIMU 05-28 01:51 → ANH3MEDSUR 06-08 11:30 → ANHIMU 06-09 09:24
PROVIDERS: Internal Medicine; Internal Medicine Cardiovascular Disease; Internal Medicine Interventional Cardiology; Nurse Practitioner Adult Health; Physician Assistant; Admitting Provider Internal Medicine; Emergency Provider Student in an Organized Health Care Education/Training Program; PCP Family Medicine; Visit Provider Internal Medicine
PROC: 3E033GC Introduction of Other Therapeutic Substance into Peripheral Vein, Percutaneous Approach (ICD-10-PCS; CPT 93454; principal; 2025-06-01 11:30)
PROC: 4A023N7 Measurement of Cardiac Sampling and Pressure, Left Heart, Percutaneous Approach (ICD-10-PCS; CPT 93452; principal; 2025-06-02 12:30)
DX: I21.4 Non-ST elevation (NSTEMI) myocardial infarction (principal); I50.43 Acute on chronic combined systolic (congestive) and diastolic (congestive) heart failure; J18.9 Pneumonia, unspecified organism; J96.20 Acute and chronic respiratory failure, unspecified whether with hypoxia or hypercapnia; I13.0 Hypertensive heart and chronic kidney disease with heart failure and stage 1 through stage 4 chronic kidney disease, or unspecified chronic kidney disease; I48.20 Chronic atrial fibrillation, unspecified; N17.9 Acute kidney failure, unspecified; J90 Pleural effusion, not elsewhere classified; E44.0 Moderate protein-calorie malnutrition; I42.8 Other cardiomyopathies; J44.0 Chronic obstructive pulmonary disease with (acute) lower respiratory infection; N18.30 Chronic kidney disease, stage 3 unspecified; J20.9 Acute bronchitis, unspecified; E55.9 Vitamin D deficiency, unspecified; N40.0 Benign prostatic hyperplasia without lower urinary tract symptoms; L40.0 Psoriasis vulgaris; R73.03 Prediabetes; R91.8 Other nonspecific abnormal finding of lung field; M15.9 Polyosteoarthritis, unspecified; G47.33 Obstructive sleep apnea (adult) (pediatric); Z79.82 Long term (current) use of aspirin; Z87.891 Personal history of nicotine dependence; Z68.25 Body mass index [BMI] 25.0-25.9, adult
CPT/HCPCS: 36415; 36600; 70480; 71045; 71275; 74177; 76705; 76775; 80048; 80053; 80162; 81001; 82805; 83690; 83735; 83880; 84132; 84145; 84484; 85018; 85025; 85380; 85610; 85730; 86140; 87040; 87070; 87186; 87205; 87641; 93005; 93308; 93454; 93458; 94618; 94640; 94667; 96361; 96374; 96375; 96376; 97110; 97116; 97162; 97165; 97530; 97535; 99285; A9270; C1769; C1887; C1894; C8924; G0378; J0692; J0696; J1644; J1938; J2003; J2250; J2305; J2543; J3010; J3373; J7030; J7040; Q9957; Q9967